=== PATIENT | female | born 1940 | race American Indian/Alaskan Native ===

== ENCOUNTER 2016-09-12 11:10 | Inpatient (IN) | payer MEDICARE ==
[2016-09-12 11:57] LABS: Basophils % (Auto) 0.3 % (0.0-1.8); Eosinophils % (Auto) 1.6 % (0.0-4.3); Hematocrit 36.6 % (30.3-42.9); Hemoglobin 11.6 gm/dl (10.1-14.3); Mean Corpuscular HGB Conc 32 % (30-34); Mean Corpuscular Hemoglobin 27 pg (28-32); Mean Corpuscular Volume 84 fl (79-97); Platelet Count 186 K/mm3 (140-440); Red Blood Count 4.36 M/mm3 (3.65-5.03); Red Cell Distribution Width 18.8 % (13.2-15.2); White Blood Count 5.3 K/mm3 (4.5-11.0)
[2016-09-12 12:13] LABS: INR 1.04 (0.87-1.13)
[2016-09-12 12:14] LABS: Partial Thromboplastin Time 40.1 Sec. (24.2-36.6)
--- NOTE | 2016-09-12 12:16 | XRay Report ---
PORTABLE CHEST INDICATION: Chest pain. COMPARISON: 05/08/2016 FINDINGS: Portable, frontal chest radiograph demonstrates improved CHF with now grossly clear, well-expanded lungs. Borderline cardiomegaly. Aortic knob calcifications as also right subclavian region and right upper arm stents again noted. EKG leads. Demineralized bones with various degenerative changes. CONCLUSION: No acute significant chest process with interval resolution of CHF, as described. Thank you for the opportunity to participate in this patient's care.
[2016-09-12 12:22] LABS: Magnesium 2.2 mg/dL (1.7-2.3); Phosphorous 3.1 mg/dL (2.5-4.5)
[2016-09-12 12:23] LABS: Creatine Kinase MB 2.6 ng/mL (0.0-4.0)
[2016-09-12 12:25] LABS: Alanine Aminotransferase 9 units/L (7-56); Albumin 4.2 g/dL (3.9-5); Albumin/Globulin Ratio 1.2 %; Alkaline Phosphatase 100 units/L (35-129); Bilirubin,Total 0.4 mg/dL (0.1-1.2); Creatine Kinase 87 units/L (30-135); Total Protein 7.7 g/dL (6.3-8.2)
[2016-09-12 12:27] LABS: Bilirubin,Direct < 0.2 mg/dL (0-0.2); Bilirubin,Indirect 0.2 mg/dL
[2016-09-12 12:36] LABS: Cholesterol 214 mg/dL (50-199); HDL Cholesterol 77 mg/dL (40-59); LDL Cholesterol,Direct 110 mg/dL (50-130); Triglycerides 138 mg/dL (2-149)
--- NOTE | 2016-09-12 13:45 | Admit Criteria Form ---
Admission Criteria Documentation: CARDIAC ARRHYTHMIA Clinical Indications for Inpatient Care (Place 'X' for any and all applicable criteria): Ongoing inpatient care for cardiac arrhythmia needed as indicated by ANY ONE of the following(1)(2)(3)(4)(7) : [X ]I. Vital sign abnormality secondary to arrhythmia [ ]II. Patient has implantable cardioverter-defibrillator that has fired more than once within past 24 hours or needs immediate adjustment of settings that cannot be done other than in inpatient setting. [ ]III. Altered mental status [ ]IV. Resuscitated or aborted ventricular fibrillation or ventricular tachycardia in patient without implantable cardioverter- defibrillator [ ]V. Initiation of antiarrhythmic drug therapy is needed in patient at high risk of adverse effects as indicated by ANY ONE of the following: [ ]a) Significant structural heart disease (e.g., reduced ejection fraction, congenital heart disease, valvular heart disease) [ ]b) Prolonged QT interval [ ]c) Underlying sinus node or atrioventricular conduction disturbances [ ]d) Need for treatment with antiarrhythmic drugs that have significant proarrhythmic potential (e.g., dofetilide, sotalol, procainamide) [ ]. Acute myocardial ischemia as a consequence or suspected cause of arrhythmia [ ]VII. Syncope secondary to arrhythmia [ ]VIII. Heart failure (eg, pulmonary edema) secondary to arrhythmia) (26)(27) [ ]IX. Patient has implantable cardioverter defibrillator that has fired more than once within past 24hr or needs immediate adjustment of settings that cannot be done other than in inpatient setting.(8) [ ]X. Sustained (30 seconds or more of ventricular rhythm at more than 100 beats per minute) ventricular tachycardia and ANY ONE of the following: [ ]a) No previous known history of sustained ventricular tachycardia [ ]b) Structural heart disease (eg, reduced ejection fraction, hypertrophic cardiomyopathy, severe valvular disease) and without implantable cardioverter-defibrillator(24)(32)(33) [ ]c) Need for treatment of drug toxicity (eg, digitalis toxicity)(34 ) [ ]d) Need for electrical cardioversion Extended stay beyond goal length of stay may be needed for [ ]a) Hemodynamic stability [ ]b) Arrhythmia evaluation completed [ ]c) Reversible causes of arrhythmia eliminated or mitigated [ ]d) Specific antiarrhythmia treatment initiated as appropriate [ ]e) Anticoagulation requirements addressed (or anticoagulation not required). [ ]f) Medical comorbidities manageable at lower level of care The original [facility] content created by [facility] has been revised. The portions of the content which have been revised are identified through the use of italic text or in bold, and [facility] has neither reviewed nor approved the modified material. All other unmodified content is copyright [facility]. Please see references footnoted in the original [facility] edition 2016 Admission Criteria Met: Yes
--- NOTE | 2016-09-12 15:16 | Emergency Department Report ---
ED General Adult HPI - General Chief complaint: Chest Pain Stated complaint: HEART PALPATIONS Time Seen by Provider: 09/12/16 11:22 Source: patient, EMS Mode of arrival: Stretcher Limitations: Physical Limitation, Other - History of Present Illness Initial comments: Patient is an extremely poor historian. As far as I can tell she went into SVT long prior to transfer for it. She states that she's never seen a white sugar supervisor. However Dr. Eric Gonzalez has seen and evaluated her several times in the past. She had a previous cardiac catheterization with a 40% LAD lesion. She had a nuclear stress test during her April admission which did not seem to be showing anything acute. In any case the patient does complain of shortness of breath and has tightness. Telemetry revealed SVT per paramedics. She arrived at this facility with a heart rate greater than 180 and a complex. An IV was not established in the field secondary to accident report clerk difficulty until right prior to arrival, they state. Medication had been heretofore given. -: minutes(s), hour(s) Location: chest Radiation: non-radiation Severity scale (0 -10): 4 Quality: aching Consistency: intermittent Improves with: none Associated Symptoms: shortness of breath Treatments Prior to Arrival: none - Related Data Home Medications Medication Instructions Recorded Confirmed Last Taken Calcium Carbonate/Vitamin D3 1 tab PO DAILY 05/08/16 05/08/16 Unknown [Calcium 500 + D Tablet] Previous Rx's Medication Instructions Recorded Last Taken Type Aspirin [Aspirin BABY CHEW TAB] 81 mg PO QDAY #30 tab.chew 05/12/16 Unknown Rx Carvedilol [Coreg] 12.5 mg PO BID #60 tablet 05/12/16 Unknown Rx Lisinopril [Zestril TAB] 20 mg PO QDAY #30 tablet 05/12/16 Unknown Rx Simvastatin [Zocor TAB] 40 mg PO QHS #30 tablet 05/12/16 Unknown Rx Allergies Allergy/AdvReac Type Severity Reaction Status Date / Time phenytoin sodium Allergy Anaphylaxis Verified 05/08/16 07:07 [From Dilantin] phenytoin sodium extended Allergy Anaphylaxis Verified 05/08/16 07:07 [From Dilantin] ED Review of Systems ROS: Stated complaint: HEART PALPATIONS Other details as noted in HPI Constitutional: denies: chills, fever Eyes: denies: eye pain, eye discharge, vision change ENT: denies: ear pain, throat pain Respiratory: shortness of breath. denies: cough, wheezing Cardiovascular: chest pain. denies: palpitations Endocrine: no symptoms reported Gastrointestinal: denies: abdominal pain, nausea, diarrhea Genitourinary: denies: urgency, dysuria, discharge Musculoskeletal: denies: back pain, joint swelling, arthralgia Skin: denies: rash, lesions Neurological: denies: headache, weakness, paresthesias Psychiatric: denies: anxiety, depression Hematological/Lymphatic: denies: easy bleeding, easy bruising ED Past Medical Hx - Past Medical History Hx Hypertension: Yes Hx Diabetes: Yes Hx Renal Disease: Yes (dialysis ) Additional medical history: poor circulation left leg - Surgical History Additional Surgical History: L foot; AV Fistula Upper R arm - Social History Smoking Status: Former Smoker - Medications Home Medications: Home Medications Medication Instructions Recorded Confirmed Last Taken Type Calcium Carbonate/Vitamin D3 1 tab PO DAILY 05/08/16 05/08/16 Unknown History [Calcium 500 + D Tablet] Aspirin [Aspirin BABY CHEW TAB] 81 mg PO QDAY #30 tab.chew 05/12/16 Unknown Rx Carvedilol [Coreg] 12.5 mg PO BID #60 tablet 05/12/16 Unknown Rx Lisinopril [Zestril TAB] 20 mg PO QDAY #30 tablet 05/12/16 Unknown Rx Simvastatin [Zocor TAB] 40 mg PO QHS #30 tablet 05/12/16 Unknown Rx ED Physical Exam - General Limitations: Physical Limitation, Other General appearance: alert, in no apparent distress - Head Head exam: Present: atraumatic, normocephalic - Eye Eye exam: Present: normal appearance. Absent: scleral icterus - ENT ENT exam: Present: mucous membranes moist - Neck Neck exam: Present: normal inspection - Respiratory Respiratory exam: Present: normal lung sounds bilaterally. Absent: respiratory distress - Cardiovascular Cardiovascular Exam: Present: normal rhythm, tachycardia. Absent: systolic murmur, diastolic murmur, rubs, gallop - GI/Abdominal GI/Abdominal exam: Present: soft, normal bowel sounds. Absent: distended, tenderness, guarding, rebound, rigid - Extremities Exam Extremities exam: Present: normal inspection - Back Exam Back exam: Present: normal inspection - Neurological Exam Neurological exam: Present: alert, other (no acute focal deficit) - Psychiatric Psychiatric exam: Present: normal affect, normal mood - Skin Skin exam: Present: warm, dry, intact, normal color. Absent: rash ED Course Vital Signs 09/12/16 09/12/16 09/12/16 11:11 11:13 11:16 Temperature 98.3 F Pulse Rate 94 H 94 H Respiratory 18 14 Rate Blood Pressure 139/73 O2 Sat by Pulse 100 100 Oximetry 09/12/16 09/12/16 09/12/16 11:18 11:39 11:47 Temperature Pulse Rate 96 H 96 H Respiratory 14 16 12 Rate Blood Pressure 137/78 137/78 O2 Sat by Pulse 99 100 Oximetry 09/12/16 09/12/16 09/12/16 12:00 12:07 13:00 Temperature Pulse Rate 96 H 104 H 92 H Respiratory 16 14 18 Rate Blood Pressure 116/67 116/67 119/62 O2 Sat by Pulse 98 61 L 100 Oximetry 09/12/16 09/12/16 09/12/16 13:55 14:00 14:02 Temperature Pulse Rate 88 86 90 Respiratory 18 17 18 Rate Blood Pressure 126/53 120/54 120/54 O2 Sat by Pulse 100 100 100 Oximetry 09/12/16 09/12/16 09/12/16 14:34 15:00 16:00 Temperature 98.5 F Pulse Rate 79 83 Respiratory 17 18 Rate Blood Pressure 134/56 129/57 O2 Sat by Pulse 99 100 Oximetry - Reevaluation(s) Reevaluation #1: The patient was given 6 mg of adenosine. This successfully terminated her sooner ventricular tachycardia. A post cardioversion EKG was consistent with diffuse ischemia however showing ST depressions in the inferolateral and high lateral leads. The rhythm is however normal sinus. Patient's chest pain did however resolved with cardioversion. She was admitted to the hospitalist service further care and evaluation. 09/12/16 16:40 ED Medical Decision Making - Lab Data Result diagrams: 09/12/16 11:39 09/12/16 15:17 Laboratory Results - last 24 hr 09/12/16 09/12/16 09/12/16 11:39 11:39 11:39 WBC 5.3 RBC 4.36 Hgb 11.6 Hct 36.6 MCV 84 MCH 27 L MCHC 32 RDW 18.8 H Plt Count 186 Lymph % (Auto) 7.0 L [place] % (Auto) 7.8 H Eos % (Auto) 1.6 Baso % (Auto) 0.3 Lymph # 0.4 L [place] # 0.4 Eos # 0.1 Baso # 0.0 Seg Neutrophils % 83.3 H Seg Neutrophils # 4.4 PT 13.5 INR 1.04 APTT 40.1 H Phosphorus Magnesium Total Bilirubin 0.4 Direct Bilirubin < 0.2 Indirect Bilirubin 0.2 AST 19 ALT 9 Alkaline Phosphatase 100 Total Creatine Kinase 87 CK-MB (CK-2) 2.6 CK-MB (CK-2) Rel Index 2.9 Troponin T 0.080 H NT-Pro-B Natriuret Pep Total Protein 7.7 Albumin 4.2 Albumin/Globulin Ratio 1.2 Triglycerides 138 Cholesterol 214 H LDL Cholesterol Direct 110 HDL Cholesterol 77 H Cholesterol/HDL Ratio 2.77 09/12/16 11:39 WBC RBC Hgb Hct MCV MCH MCHC RDW Plt Count Lymph % (Auto) [place] % (Auto) Eos % (Auto) Baso % (Auto) Lymph # [place] # Eos # Baso # Seg Neutrophils % Seg Neutrophils # PT INR APTT Phosphorus 3.1 Magnesium 2.2 Total Bilirubin Direct Bilirubin Indirect Bilirubin AST ALT Alkaline Phosphatase Total Creatine Kinase CK-MB (CK-2) CK-MB (CK-2) Rel Index Troponin T NT-Pro-B Natriuret Pep 39311 H Total Protein Albumin Albumin/Globulin Ratio Triglycerides Cholesterol LDL Cholesterol Direct HDL Cholesterol Cholesterol/HDL Ratio - EKG Data -: EKG Interpreted by Me - EKG Data Assessment and 180. Post cardioversion EKG above described. 09/12/16 16:40 - Radiology Data interpreted by me: Chest x-ray no acute process. Critical Care Time: Yes Critical care time in (mins) excluding proc time.: 35 Critical care attestation.: If time is entered above; I have spent that time in minutes in the direct care of this critically ill patient, excluding procedure time. ED Disposition Clinical Impression: Supraventricular tachycardia, End stage renal disease on dialysis due to type 2 diabetes mellitus, Hyperkalemia Disposition: OP ADMITTED IP TO THIS HOSP Is pt being admited?: Yes Does the pt Need Aspirin: Yes Condition: Stable
[2016-09-12 15:40] LABS: BUN/Creatinine Ratio 4.8; Calcium 9.1 mg/dL (8.4-10.2); Potassium 5.2 mmol/L (3.6-5.0)
[2016-09-12] MEDS ORDERED: D50W (25GM) IV PRN (16:23)
[2016-09-12] MEDS ORDERED: ZOFRAN IV PRN (16:23)
[2016-09-12] MEDS ORDERED: TYLENOL PO PRN (16:23)
[2016-09-12] MEDS ORDERED: REGLAN IV PRN (16:23)
[2016-09-12] MEDS ORDERED: KIONEX PO ONE (16:44)
[2016-09-12] MEDS ORDERED: KIONEX ONE (16:57)
--- NOTE | 2016-09-12 18:43 | History and Physical Report ---
History of Present Illness Date of examination: 09/12/16 Date of admission: 09/12/16 15:30 Chief complaint: palpitations today History of present illness: Paul is a 76-year-old -English female who presented to the emergency room after having palpitations. She reported that she was in [employer] shopping and while she was there she started to have palpitations with dizziness and shortness of breath. She reported that she went home and she took an aspirin and she was laying down however the palpitation worsened. She called EMS and was subsequently taken to the emergency room. In the emergency room she was noted to be in SVT. She was given 6 mg of adenosine and she converted to sinus rhythm. At the time of evaluation she had no chest pain or shortness of breath. She reported no chest pain during her episode of palpitations. Past History Past Medical History: diabetes, dialysis, ESRD, hypertension, other (cva; tia; ) Past Surgical History: Other (R AVF, cataract surgery, hip replacement, LLE bypass, left toe amputation) Social history: full code. denies: smoking, alcohol abuse, prescription drug abuse, IV drug use Family history: hypertension Medications and Allergies Allergies Allergy/AdvReac Type Severity Reaction Status Date / Time phenytoin sodium Allergy Anaphylaxis Verified 05/08/16 07:07 [From Dilantin] phenytoin sodium extended Allergy Anaphylaxis Verified 05/08/16 07:07 [From Dilantin] Home Medications Medication Instructions Recorded Confirmed Last Taken Type Calcium Carbonate/Vitamin D3 1 tab PO AC 05/08/16 09/12/16 Unknown History [Calcium 500 + D Tablet] Aspirin [Aspirin BABY CHEW TAB] 81 mg PO QDAY #30 tab.chew 05/12/16 09/12/16 Unknown Rx Simvastatin [Zocor TAB] 40 mg PO QHS #30 tablet 05/12/16 09/12/16 Unknown Rx Furosemide [Lasix TAB] 10 mg PO DAILY 09/12/16 09/12/16 Unknown History Insulin Glargine [Lantus VIAL] 20 units SUB-Q PRN 09/12/16 09/12/16 Unknown History Insulin Lispro [HumaLOG VIAL] 5 units SUB-Q AC 09/12/16 09/12/16 Unknown History Labetalol [Normodyne TAB] 100 mg PO DAILY 01/20/17 01/20/17 Unknown History Lisinopril/Hydrochlorothiazide 1 tab PO QDAY 09/12/16 09/12/16 Unknown History [Zestoretic 20-12.5 mg] Active Meds: Active Medications Acetaminophen (Tylenol) 650 mg PO Q4H PRN PRN Reason: Pain MILD(1-3)/Fever >100.5/KEE Aspirin (Baby Aspirin) 81 mg PO QDAY [facility] Calcium/Vitamin D ([place] D 500 Mg-200 Unit) 1 each PO QDAY [facility] Carvedilol (Coreg) 12.5 mg PO BID [facility] Dextrose (D50w (25gm)) 50 ml IV PRN PRN PRN Reason: Hypoglycemia Heparin Sodium (Porcine) (Heparin) 5,000 unit SUB-Q Q12HR [facility] Lisinopril (Zestril) 20 mg PO QDAY [facility] Metoclopramide HCl (Reglan) 10 mg IV Q6H PRN PRN Reason: Nausea And Vomiting Ondansetron HCl (Zofran) 4 mg IV Q8H PRN PRN Reason: N/V unrelieved by Reglan Simvastatin (Zocor) 40 mg PO QHS [facility] Review of Systems All systems: negative Constitutional: no weight loss, no weight gain, no fever, no chills, no sweats Ears, nose, mouth and throat: no ear pain, no ear discharge, no tinnitis, no decreased hearing, no nose pain Breasts: normal Cardiovascular: other (as [facility]) Respiratory: no cough, no cough with sputum, no excessive sputum, no hemoptysis , no shortness of breath, no dyspnea on exertion Gastrointestinal: no nausea, no vomiting, no diarrhea, no constipation Genitourinary Female: no dysuria, no urinary frequency Rectal: no pain, no incontinence, no bleeding Musculoskeletal: no neck stiffness, no neck pain, no shooting arm pain, no arm numbness/tingling Integumentary: no rash, no pruritis, no redness Neurological: no head injury, no transient paralysis, no paralysis, no weakness , no parathesias Psychiatric: no anxiety, no memory loss, no change in sleep habits, no sleep disturbances Endocrine: no cold intolerance, no heat intolerance, no polyphagia, no excessive thirst Hematologic/Lymphatic: no easy bruising, no easy bleeding Allergic/Immunologic: no urticaria, no allergic rhinitis Exam - Constitutional Vitals: Temp Pulse Resp BP Pulse Ox 98.7 F 85 16 138/65 100 09/12/16 17:05 09/12/16 17:27 09/12/16 17:27 09/12/16 17:27 09/12/16 17:27 General appearance: Present: no acute distress, well-nourished - EENT Eyes: Present: PERRL, EOM intact. Absent: scleral icterus, conjunctival injection ENT: hearing intact, clear oral mucosa, no oropharyngeal erythema, no poor dentition - Neck Neck: Present: supple, normal ROM. Absent: enlarged thyroid, masses or JVD - Respiratory Respiratory effort: normal Respiratory: negative: diminished, rales, rhonchi, wheezing - Cardiovascular Rhythm: regular Heart Sounds: Present: S1 & S2. Absent: gallop - Extremities Extremities: no ischemia, pulses intact, pulses symmetrical Extremity abnormal: other (transmetatarsal amputation of the toes of the left foot ) Peripheral Pulses: within normal limits - Abdominal General gastrointestinal: Present: soft, non-tender, non-distended, normal bowel sounds Female genitourinary: Present: deferred - Rectal Rectal Exam: deferred - Integumentary Integumentary: Present: clear - Musculoskeletal Musculoskeletal: strength equal bilaterally - Psychiatric Psychiatric: appropriate mood/affect, intact judgment & insight, cooperative - Neurologic Neurologic: CNII-XII intact, moves all extremities Results - Labs CBC & Chem 7: 09/12/16 11:39 09/12/16 15:17 Labs: Abnormal lab results 09/12/16 Range/Units 17:10 POC Glucose 196 H (70-105) - Imaging and Cardiology EKG: report reviewed (SVT with conversion in to sinus after adenos) Chest x-ray: report reviewed (no acute abn- resolution of CHF ) Assessment and Plan 1. SVT post cardioversion with adenosine - will admit as an inpatient as more than 2 MN are required for treatment; serial CE; mildly elevated trop which is chronic with normal CKMB index; consult cardiology; TSH; echo; restart B nancy 2. DM 2- monitor accucheck; renal consistent carb diet; restart insulin regime 3. ESRD on HD- consult renal for HD;monitor lytes; restart home meds 4. Chronic systolic / diastolic CHF- compensated; restart coreg and lisinopril as per home meds 5. OLD CVA - no residual deficits; ASA\ 6. Dyslipidemia- restart statin 7. DVT prophylaxis-heparin
[2016-09-12 21:25] LABS: Creatine Kinase MB 8.7 ng/mL (0.0-4.0)
[2016-09-12] MEDS: COREG PO SCH (23:01)
[2016-09-12] MEDS: HEPARIN SUB-Q SCH (23:01)
[2016-09-12] MEDS: ZOCOR PO SCH (23:01)
[2016-09-13 00:33] LABS: Creatine Kinase MB 7.8 ng/mL (0.0-4.0)
[2016-09-13] MEDS ORDERED: INSULIN LISPRO 5 UNIT SUB-Q SCH (07:30)
[2016-09-13 07:41] LABS: BUN/Creatinine Ratio 5.08; Calcium 8.3 mg/dL (8.4-10.2); Chloride 95.7 mmol/L (98-107); Potassium 4.4 mmol/L (3.6-5.0)
[2016-09-13] MEDS: NOVOLOG SUB-Q SCH ×3 (08:49→17:22)
[2016-09-13] MEDS: BABY ASPIRIN PO SCH (09:45)
[2016-09-13] MEDS: HEPARIN SUB-Q SCH ×2 (09:45→23:07)
[2016-09-13] MEDS: COREG PO SCH ×2 (09:45→23:08)
[2016-09-13] MEDS: ZESTRIL PO SCH (09:46)
[2016-09-13] MEDS: NORMODYNE PO SCH (09:46)
[2016-09-13] MEDS: LASIX PO SCH (09:46)
[2016-09-13] MEDS: OYSCO D 500 MG-200 UNIT PO SCH (09:46)
[2016-09-13] MEDS ORDERED: CALCIUM CARBONATE PO SCH (10:00)
[2016-09-13] MEDS ORDERED: VITAMIN D3 PO SCH (10:00)
--- NOTE | 2016-09-13 11:17 | Event Note ---
Date: 09/13/16 Cardio note dictated SVT converted to sr Cardiomyopathy-non ischemic Agree with current management Rec increase carvedilol to 25 bid and d/c labetalol and monitor Thank you LUPE Richards
--- NOTE | 2016-09-13 13:25 | Progress Note ---
Assessment and Plan Assessment and plan: --SVT received adenosine, normal sinus rhythm closely monitor cardiology following --End-stage renal disease on hemodialysis per schedule Nephrology evaluation noted and appreciated --Acute on chronic systolic and diastolic congestive heart failure Continue current anti-failure medications closely monitor input-output Cardiology recommendations noted and appreciated --Abnormal cardiac enzymes; probably nonspecific in the setting of congestive heart failure as well as end-stage renal disease However in view of multiple risk factors, acute coronary syndrome needs to be ruled out, management per cardiology --Type 2 diabetes mellitus moderate control Accu-Chek sliding scale coverage and ADA diet, patient's hemoglobin A1c is less than 6 --Hypertension; continue current antihypertensives and when necessary medications --History of CVA without residual defect, continue antiplatelets --Dyslipidemia; stable on lipid-lowering medications --DVT prophylaxis with Lovenox --Full CODE STATUS Medical records reviewed patient's condition treatment plan discussed in detail with the patient her nurse as well as the family member Consults and recommendations noted and appreciated History Interval history: Patient seen and evaluated medical records reviewed No new events reported by the nursing staff Patient denies any chest pain or shortness of breath Alert awake responding appropriately Hospitalist Physical - Constitutional Vitals: Temp Pulse Resp BP Pulse Ox 97.6 F 88 20 105/58 97 09/13/16 11:25 09/13/16 11:25 09/13/16 11:25 09/13/16 11:25 09/13/16 11:25 General appearance: Present: no acute distress, well-nourished - EENT Eyes: Present: PERRL, EOM intact - Neck Neck: Present: supple, normal ROM - Respiratory Respiratory effort: normal Respiratory: bilateral: diminished, negative: rales, rhonchi, wheezing - Cardiovascular Rhythm: regular Heart Sounds: Present: S1 & S2 - Extremities Extremities: no ischemia, pulses intact, pulses symmetrical - Abdominal General gastrointestinal: soft, non-tender, non-distended, normal bowel sounds - Psychiatric Psychiatric: appropriate mood/affect, cooperative - Neurologic Neurologic: CNII-XII intact, moves all extremities Results - Labs CBC & Chem 7: 09/14/16 05:28 09/14/16 05:28 Labs: Laboratory Last Values WBC 5.3 K/mm3 (4.5-11.0) 09/12/16 11:39 RBC 4.36 M/mm3 (3.65-5.03) 09/12/16 11:39 Hgb 11.6 gm/dl (10.1-14.3) 09/12/16 11:39 Hct 36.6 % (30.3-42.9) 09/12/16 11:39 MCV 84 fl (79-97) 09/12/16 11:39 MCH 27 pg (28-32) L 09/12/16 11:39 MCHC 32 % (30-34) 09/12/16 11:39 RDW 18.8 % (13.2-15.2) H 09/12/16 11:39 Plt Count 186 K/mm3 (140-440) 09/12/16 11:39 Lymph % (Auto) 7.0 % (13.4-35.0) L 09/12/16 11:39 [place] % (Auto) 7.8 % (0.0-7.3) H 09/12/16 11:39 Eos % (Auto) 1.6 % (0.0-4.3) 09/12/16 11:39 Baso % (Auto) 0.3 % (0.0-1.8) 09/12/16 11:39 Lymph # 0.4 K/mm3 (1.2-5.4) L 09/12/16 11:39 [place] # 0.4 K/mm3 (0.0-0.8) 09/12/16 11:39 Eos # 0.1 K/mm3 (0.0-0.4) 09/12/16 11:39 Baso # 0.0 K/mm3 (0.0-0.1) 09/12/16 11:39 Seg Neutrophils % 83.3 % (40.0-70.0) H 09/12/16 11:39 Seg Neutrophils # 4.4 K/mm3 (1.8-7.7) 09/12/16 11:39 PT 13.5 Sec. (12.2-14.9) 09/12/16 11:39 INR 1.04 (0.87-1.13) 09/12/16 11:39 APTT 40.1 Sec. (24.2-36.6) H 09/12/16 11:39 Sodium 142 mmol/L (137-145) 09/13/16 07:06 Potassium 4.4 mmol/L (3.6-5.0) 09/13/16 07:06 Chloride 95.7 mmol/L (98-107) L 09/13/16 07:06 Carbon Dioxide 27 mmol/L (22-30) D 09/13/16 07:06 Anion Gap 24 mmol/L 09/13/16 07:06 BUN 31 mg/dL (7-17) H 09/13/16 07:06 Creatinine 6.1 mg/dL (0.7-1.2) H 09/13/16 07:06 Estimated GFR 8 ml/min 09/13/16 07:06 BUN/Creatinine Ratio 5.08 % 09/13/16 07:06 Glucose 95 mg/dL (65-100) 09/13/16 07:06 POC Glucose 78 (70-105) 09/13/16 11:24 Calcium 8.3 mg/dL (8.4-10.2) L 09/13/16 07:06 Phosphorus 3.1 mg/dL (2.5-4.5) 09/12/16 11:39 Magnesium 2.2 mg/dL (1.7-2.3) 09/12/16 11:39 Total Bilirubin 0.4 mg/dL (0.1-1.2) 09/12/16 11:39 Direct Bilirubin < 0.2 mg/dL (0-0.2) 09/12/16 11:39 Indirect Bilirubin 0.2 mg/dL 09/12/16 11:39 AST 19 units/L (5-40) 09/12/16 11:39 ALT 9 units/L (7-56) 09/12/16 11:39 Alkaline Phosphatase 100 units/L (35-129) 09/12/16 11:39 Total Creatine Kinase 137 units/L (30-135) H 09/12/16 23:34 CK-MB (CK-2) 7.8 ng/mL (0.0-4.0) H 09/12/16 23:34 CK-MB (CK-2) Rel Index 5.6 (0-4) H 09/12/16 23:34 Troponin T 0.764 ng/mL (0.00-0.029) H* 09/12/16 23:34 NT-Pro-B Natriuret Pep 14264 pg/mL (0-900) H 09/12/16 11:39 Total Protein 7.7 g/dL (6.3-8.2) 09/12/16 11:39 Albumin 4.2 g/dL (3.9-5) 09/12/16 11:39 Albumin/Globulin Ratio 1.2 % 09/12/16 11:39 Triglycerides 138 mg/dL (2-149) 09/12/16 11:39 Cholesterol 214 mg/dL (50-199) H 09/12/16 11:39 LDL Cholesterol Direct 110 mg/dL (50-130) 09/12/16 11:39 HDL Cholesterol 77 mg/dL (40-59) H 09/12/16 11:39 Cholesterol/HDL Ratio 2.77 % 09/12/16 11:39 TSH 0.864 mlU/mL (0.270-4.200) 09/12/16 19:58
--- NOTE | 2016-09-13 16:29 | Consultation ---
History of Present Illness - Reason for Consult Consult date: 09/13/16 end stage renal disease - History of Present Illness Mrs. Miller is a very pleasant 76yo female with ESRD on HD TTS who presented to the ED w/complaint of palpitations. She reports being in usual state of health until morning prior to admission when she became lightheaded/dizzy while grocery shopping. Dizziness was soon followed by palpitations. She reports palpitations worsened described as "chest pounding" which prompted her visit to the ED. She denies chest pain, sob, diaphoresis. Upon arrival to ED, patient was in SVT requiring adenosine. She has been admitted for further management. Past History Past Medical History: diabetes, dialysis, ESRD, hypertension, other (cva; tia; ) Past Surgical History: Other (R AVF, cataract surgery, hip replacement, LLE bypass, left toe amputation) Social history: full code. denies: smoking, alcohol abuse, prescription drug abuse, IV drug use Family history: hypertension Medications and Allergies Allergies Allergy/AdvReac Type Severity Reaction Status Date / Time phenytoin sodium Allergy Anaphylaxis Verified 05/08/16 07:07 [From Dilantin] phenytoin sodium extended Allergy Anaphylaxis Verified 05/08/16 07:07 [From Dilantin] Home Medications Medication Instructions Recorded Confirmed Last Taken Type Calcium Carbonate/Vitamin D3 1 tab PO AC 05/08/16 09/12/16 Unknown History [Calcium 500 + D Tablet] Aspirin [Aspirin BABY CHEW TAB] 81 mg PO QDAY #30 tab.chew 05/12/16 09/12/16 Unknown Rx Simvastatin [Zocor TAB] 40 mg PO QHS #30 tablet 05/12/16 09/12/16 Unknown Rx Furosemide [Lasix TAB] 10 mg PO DAILY 09/12/16 09/12/16 Unknown History Insulin Glargine [Lantus VIAL] 20 units SUB-Q PRN 09/12/16 09/12/16 Unknown History Insulin Lispro [HumaLOG VIAL] 5 units SUB-Q AC 09/12/16 09/12/16 Unknown History Labetalol [Normodyne TAB] 100 mg PO DAILY 09/12/16 09/12/16 Unknown History Lisinopril/Hydrochlorothiazide 1 tab PO QDAY 09/12/16 09/12/16 Unknown History [Zestoretic 20-12.5 mg] Active Meds: Active Medications Acetaminophen (Tylenol) 650 mg PO Q4H PRN PRN Reason: Pain MILD(1-3)/Fever >100.5/KEE Aspirin (Baby Aspirin) 81 mg PO QDAY [facility] Last Admin: 09/13/16 09:45 Dose: 81 mg Calcium/Vitamin D ([place]ysco D 500 Mg-200 Unit) 1 each PO QDAY [facility] Last Admin: 09/13/16 09:46 Dose: 1 each Carvedilol (Coreg) 12.5 mg PO BID [facility] Last Admin: 09/13/16 09:45 Dose: 12.5 mg Dextrose (D50w (25gm)) 50 ml IV PRN PRN PRN Reason: Hypoglycemia Furosemide (Lasix) 10 mg PO DAILY [facility] Last Admin: 09/13/16 09:46 Dose: 10 mg Heparin Sodium (Porcine) (Heparin) 5,000 unit SUB-Q Q12HR [facility] Last Admin: 09/13/16 09:45 Dose: 5,000 unit Insulin Aspart (Novolog) 5 units SUB-Q AC [facility] Last Admin: 09/13/16 11:27 Dose: Not Given Labetalol HCl (Normodyne) 100 mg PO DAILY [facility] Last Admin: 09/13/16 09:46 Dose: 100 mg Lisinopril (Zestril) 20 mg PO QDAY [facility] Last Admin: 09/13/16 09:46 Dose: 20 mg Metoclopramide HCl (Reglan) 10 mg IV Q6H PRN PRN Reason: Nausea And Vomiting Ondansetron HCl (Zofran) 4 mg IV Q8H PRN PRN Reason: N/V unrelieved by Reglan Simvastatin (Zocor) 40 mg PO QHS [facility] Last Admin: 09/12/16 23:01 Dose: 40 mg Review of Systems Constitutional: no fever, no chills, no sweats Ears, nose, mouth and throat: deferred Breasts: deferred Cardiovascular: palpitations, rapid/irregular heart beat, lightheadedness, no chest pain, no orthopnea, no syncope, no shortness of breath, no dyspnea on exertion Respiratory: no cough, no shortness of breath, no dyspnea on exertion Gastrointestinal: no abdominal pain, no nausea, no vomiting, no diarrhea Musculoskeletal: no muscle weakness, no myalgias Integumentary: no rash Neurological: other (dizziness) Endocrine: no cold intolerance, no heat intolerance Exam - Vital Signs Vital signs: Vital Signs Temp 98.3 F 09/12/16 11:11 - General Appearance General appearance: well-developed, well-nourished EENT: ATNC Respiratory: Clear to Ascultation Heart: regular, S1S2 Gastrointestinal: Present: normal. Absent: tenderness, distended Integumentary: no rash Neurologic: no focal deficit Musculoskeletal: Present: other (no edema) Psychiatric: mood/affect appropriate, cooperative Results - Lab Results 09/12/16 11:39 09/13/16 07:06 Most recent lab results Calcium 8.3 mg/dL (8.4-10.2) L 09/13/16 07:06 Phosphorus 3.1 mg/dL (2.5-4.5) 09/12/16 11:39 Magnesium 2.2 mg/dL (1.7-2.3) 09/12/16 11:39 Assessment and Plan Impression: * End stage renal disease on HD TTS * SVT * Elevated troponin * Chronic systolic heart failure - TTE LVEF 20-25% (Apr 2016) * Type II DM Plan: * Hemodialysis today; continue TTS schedule * UF as tolerated * Patient needs a cardiac work up - her troponin has increased from 0.08 at admission to 0.76 * Epogen for goal Hgb 10-12 * Renal diet * Binders with meals
[2016-09-13] MEDS ORDERED: NACL 0.9% 1000 ML 100 ML IV PRN (17:29)
--- NOTE | 2016-09-13 21:25 | Consultation ---
AGE: 76. REASON FOR CONSULTATION: Evaluation tachycardia and cardiac evaluation. HISTORY OF PRESENT ILLNESS: The patient is a 76-year-old female who presented to the Emergency Room with difficulty in breathing and palpitations. She was apparently shopping at [employer] and started having palpitations. She went home and as it persisted and as it was associated with dizziness and shortness of breath, the patient was brought to the Emergency Room. She was noted to be in a supraventricular tachycardia. The patient received 6 mg of intravenous adenosine, with which she converted to sinus rhythm. Currently, she is in the sinus rhythm and she is feeling significantly better. The patient has no significant chest pain, difficulty in breathing, or palpitations at this time. The patient is known to me from her previous evaluation in 04/2016 at which time she was admitted with congestive heart failure. Last ejection fraction was about 20%. The patient is also known to have a history of longstanding hypertension as well as diabetes. The patient has chronic renal disease, on dialysis. She is also known to have peripheral vascular disease and Vascular Surgery done on her left lower extremity. She had a PET scan done in 2014 that was noted to be negative for ischemia. Nuclear stress test done in 04/2016 showed severe left ventricular systolic dysfunction, no significant ischemia was noted. Echocardiogram done on 05/09 showed an ejection fraction of 20-25%, severe left ventricular systolic dysfunction, moderate mitral regurgitation was noted. REVIEW OF SYSTEMS: HEAD, EYES, EARS, NOSE, AND THROAT: No symptoms. ENDOCRINE: The patient is known to have diabetes. RESPIRATORY: No history of significant dyspnea or cough at this time. However, she did have difficulty in breathing yesterday. GASTROINTESTINAL: No abdominal pain, nausea, or vomiting. GENITOURINARY: No symptoms. MUSCULOSKELETAL: No symptoms. CENTRAL NERVOUS SYSTEM: No history of cerebrovascular accident or convulsive disorder. PERSONAL HISTORY: Nonsmoker, nonalcoholic. PHYSICAL EXAMINATION: GENERAL: Adult female, well built, well nourished, in no acute distress at this time. VITAL SIGNS: Blood pressure 133/71, pulse 86, oxygen saturation is 100, afebrile. HEAD, EYES, EARS, NOSE, AND THROAT: Unremarkable. NECK: Supple. No thyromegaly. Both carotids are palpable and equal. Neck veins are flat. CHEST: Symmetrical. LUNGS: Essentially clear. CARDIOVASCULAR: S1, S2 are heard well. Rhythm is regular. ABDOMEN: Soft, nontender. No hepatosplenomegaly. EXTREMITIES: No significant edema or calf tenderness. LABORATORY DATA: Rhythm strips are reviewed and the patient did have a supraventricular tachycardia, now she is in sinus rhythm. Sodium 142, potassium 4.4, BUN 31, creatinine 6.1, troponin 0.695 and 0.764, hemoglobin 11.6, hematocrit 36.6. BNP 28,758, total cholesterol 214, LDL 110, HDL 77. IMPRESSION: 1. Supraventricular tachycardia, converted to sinus with adenosine. 2. Nonischemic cardiomyopathy. Echo done on 05/09 showed an ejection fraction of 20-25%. 3. Moderate mitral regurgitation. 4. Hypertension. 5. Diabetes. 6. End-stage renal disease, on dialysis. The patient is seen for cardiac evaluation. She converted to sinus rhythm and she is staying in sinus rhythm at this time. CURRENT MEDICATIONS: Reviewed. The patient is on both carvedilol and labetalol. I will increase carvedilol to 25 mg b.i.d. and stop the labetalol and monitor the blood pressure closely. Agree with the rest of the medications. The patient will be monitored and followed closely with you. Thank you Dr. Camilo for allowing me to participate in the care of this pleasant lady. JOB# [id number] ARMANDO/RU
[2016-09-13] MEDS: ZOCOR PO SCH (23:08)
[2016-09-14 06:07] LABS: Basophils % (Auto) 0.4 % (0.0-1.8); Eosinophils % (Auto) 5.7 % (0.0-4.3); Mean Corpuscular HGB Conc 33 % (30-34); Mean Corpuscular Hemoglobin 27 pg (28-32); Mean Corpuscular Volume 82 fl (79-97); Platelet Count 145 K/mm3 (140-440); Red Blood Count 3.72 M/mm3 (3.65-5.03); Red Cell Distribution Width 18.3 % (13.2-15.2); White Blood Count 3.9 K/mm3 (4.5-11.0)
[2016-09-14 06:11] LABS: BUN/Creatinine Ratio 4.35; Calcium 7.4 mg/dL (8.4-10.2); Magnesium 1.8 mg/dL (1.7-2.3)
[2016-09-14 06:12] LABS: Chloride 95.4 mmol/L (98-107); Potassium 3.8 mmol/L (3.6-5.0)
[2016-09-14] MEDS ORDERED: MORPHINE IV ONE (06:23)
[2016-09-14 06:34] LABS: Hematocrit 32.9 % (30.3-42.9)
[2016-09-14 06:53] LABS: Creatine Kinase MB 1.7 ng/mL (0.0-4.0)
[2016-09-14] MEDS: NOVOLOG SUB-Q SCH ×3 (08:59→16:41)
[2016-09-14] MEDS: COREG PO SCH ×2 (09:57→22:18)
[2016-09-14] MEDS: BABY ASPIRIN PO SCH (09:57)
[2016-09-14] MEDS: HEPARIN SUB-Q SCH ×2 (09:57→22:18)
[2016-09-14] MEDS: ZESTRIL PO SCH (09:58)
[2016-09-14] MEDS: LASIX PO SCH (09:58)
[2016-09-14] MEDS: NORMODYNE PO SCH (09:58)
[2016-09-14] MEDS: OYSCO D 500 MG-200 UNIT PO SCH (09:58)
[2016-09-14 10:26] LABS: Creatine Kinase MB 1.5 ng/mL (0.0-4.0)
--- NOTE | 2016-09-14 11:11 | Progress Note ---
Assessment and Plan SVT converted to sinus rythm Non ischemic cardiomyopathy continues to improve. Discussed about recommondation for AICD-she will think about it HTN ESRD cont current management, - Patient Problems (1) Hyperkalemia Current Visit: Yes Status: Acute (2) Supraventricular tachycardia Current Visit: Yes Status: Acute (3) ESRD (end stage renal disease) on dialysis Current Visit: No Status: Acute (4) HTN (hypertension) Current Visit: No Status: Acute (5) Nonischemic cardiomyopathy Current Visit: No Status: Acute (6) ESRD (end stage renal disease) Current Visit: No Status: Chronic Subjective Date of service: 09/14/16 Interval history: Patient is feeling well.RYthmis sinus.Improving Objective Vital Signs Temp Pulse Pulse Pulse Resp Resp BP 09/14/16 10:24 71 09/14/16 08:25 98.1 F 74 20 09/14/16 06:36 20 09/14/16 06:22 98.3 F 73 18 09/13/16 23:08 75 105/57 09/13/16 23:00 60 20 20 09/13/16 22:42 97.8 F 75 18 09/13/16 22:13 97.7 F 76 22 112/53 09/13/16 21:45 76 131/63 09/13/16 21:30 76 102/50 09/13/16 21:15 75 98/53 09/13/16 21:00 76 96/51 09/13/16 20:45 77 85/49 09/13/16 20:30 77 92/50 09/13/16 20:15 74 98/40 09/13/16 20:00 89 94/58 09/13/16 19:45 63 75/38 09/13/16 19:30 81 100/49 09/13/16 19:15 77 88/52 09/13/16 19:00 83 99/49 09/13/16 18:45 76 91/51 09/13/16 18:30 76 101/44 09/13/16 18:15 81 115/58 09/13/16 18:05 97.9 F 81 20 115/58 09/13/16 15:54 98.2 F 80 20 09/13/16 11:25 97.6 F 88 20 BP Pulse Ox 09/14/16 10:24 09/14/16 08:25 111/58 98 09/14/16 06:36 09/14/16 06:22 116/55 99 09/13/16 23:08 09/13/16 23:00 99 09/13/16 22:42 105/57 99 09/13/16 22:13 09/13/16 21:45 09/13/16 21:30 09/13/16 21:15 09/13/16 21:00 09/13/16 20:45 09/13/16 20:30 09/13/16 20:15 09/13/16 20:00 09/13/16 19:45 09/13/16 19:30 09/13/16 19:15 09/13/16 19:00 09/13/16 18:45 09/13/16 18:30 09/13/16 18:15 09/13/16 18:05 09/13/16 15:54 104/57 97 09/13/16 11:25 105/58 97 - Physical Examination General: Appears Well Neck: Positive: neck supple Cardiac: Positive: Reg Rate and Rhythm Lungs: Positive: clear to auscultation - Labs and Meds Cardiac Enzymes 09/14/16 09/14/16 Range/Units 05:28 09:44 CK-MB (CK-2) 1.7 1.5 (0.0-4.0) ng/mL CBC 09/14/16 Range/Units 05:28 WBC 3.9 L (4.5-11.0) K/mm3 RBC 3.72 (3.65-5.03) M/mm3 Hgb 10.0 L (10.1-14.3) gm/dl Hct 32.9 (30.3-42.9) % Plt Count 145 (140-440) K/mm3 Lymph # 0.7 L (1.2-5.4) K/mm3 [place] # 0.4 (0.0-0.8) K/mm3 Eos # 0.2 (0.0-0.4) K/mm3 Baso # 0.0 (0.0-0.1) K/mm3 Comprehensive Metabolic Panel 09/14/16 Range/Units 05:28 Sodium 140 (137-145) mmol/L Potassium 3.8 (3.6-5.0) mmol/L Chloride 95.4 L (98-107) mmol/L Carbon Dioxide 29 (22-30) mmol/L BUN 17 (7-17) mg/dL Creatinine 3.9 H (0.7-1.2) mg/dL Glucose 84 (65-100) mg/dL Calcium 7.4 L (8.4-10.2) mg/dL - Imaging and Cardiology EKG: report reviewed (SVT with conversion in to sinus after adenos)
--- NOTE | 2016-09-14 11:56 | Progress Note ---
Assessment and Plan Impression: * End stage renal disease on HD TTS * SVT * Elevated troponin * Chronic systolic heart failure - TTE LVEF 20-25% (Apr 2016) * Type II DM Plan: * Hemodialysis TTS schedule * UF as tolerated * Cardiology recommendations noted * Epogen for goal Hgb 10-12 * Renal diet * Binders with meals Subjective Date of service: 09/14/16 Interval history: Patient reports palpitations yesterday. None at present. Denies SOB. Objective - Vital Signs Vital signs: Vital Signs - 12hr 09/14/16 09/14/16 09/14/16 06:22 06:36 08:25 Temperature 98.3 F 98.1 F Pulse Rate Pulse Rate [ 73 Apical] Pulse Rate [ 74 Left] Respiratory 18 20 20 Rate Blood Pressure 116/55 111/58 [Left Arm] O2 Sat by Pulse 99 98 Oximetry 09/14/16 10:24 Temperature Pulse Rate 71 Pulse Rate [ Apical] Pulse Rate [ Left] Respiratory Rate Blood Pressure [Left Arm] O2 Sat by Pulse Oximetry - General Appearance General appearance: well-developed, well-nourished EENT: ATNC Respiratory: Present: Clear to Ascultation Cardiology: regular, S1S2 Gastrointestinal: normal Integumentary: no rash Neurologic: no focal deficit Musculoskeletal: other (Left TMA; no edema) Psychiatric: mood/affect appropriate, cooperative - Lab 09/14/16 05:28 09/14/16 05:28 Most recent lab results Calcium 7.4 mg/dL (8.4-10.2) L 09/14/16 05:28 Phosphorus 3.1 mg/dL (2.5-4.5) 09/12/16 11:39 Magnesium 1.8 mg/dL (1.7-2.3) 09/14/16 05:28
--- NOTE | 2016-09-14 17:40 | Progress Note ---
Assessment and Plan Assessment and plan: ----Nonischemic cardiomyopathy Acute on chronic systolic dysfunction, Ejection fraction 20-25%, cardiology following Recommend AICD placement, patient is considering not yet decided, Continue current anti-failure medications --Abnormal cardiac enzymes; probably nonspecific in the setting of congestive heart failure as well as end-stage renal disease Cardiology following, medical management --SVT received adenosine, normal sinus rhythm . --End-stage renal disease on hemodialysis per schedule HD per schedule Nephrology following --Type 2 diabetes mellitus moderate control Accu-Chek sliding scale coverage and ADA diet, patient's hemoglobin A1c is less than 6 --Hypertension; continue current antihypertensives and when necessary medications --History of CVA without residual defect, continue antiplatelets --Dyslipidemia; stable on lipid-lowering medications --DVT prophylaxis with Lovenox --Full CODE STATUS Consults and recommendations noted and appreciated DC planning per case management possible home with home health and medically stable History Interval history: Patient seen and evaluated medical records reviewed No new events reported by the nursing staff, patient feels better Denies chest pain or shortness of breath Alert awake oriented 3 not in acute distress Hospitalist Physical - Constitutional Vitals: Temp Pulse Resp BP Pulse Ox 98.3 F 72 18 100/55 98 09/14/16 15:51 09/14/16 15:51 09/14/16 15:51 09/14/16 15:51 09/14/16 15:51 General appearance: Present: no acute distress, well-nourished - EENT Eyes: Present: PERRL, EOM intact - Neck Neck: Present: supple, normal ROM - Respiratory Respiratory effort: normal Respiratory: bilateral: diminished, negative: rales, rhonchi, wheezing - Cardiovascular Rhythm: regular Heart Sounds: Present: S1 & S2 - Extremities Extremities: no ischemia, pulses intact, pulses symmetrical Peripheral Pulses: within normal limits - Abdominal General gastrointestinal: soft, non-tender, non-distended, normal bowel sounds - Integumentary Integumentary: Present: clear, warm - Psychiatric Psychiatric: appropriate mood/affect, cooperative - Neurologic Neurologic: CNII-XII intact, moves all extremities Results - Labs CBC & Chem 7: 09/14/16 05:28 09/14/16 05:28 Labs: Laboratory Last Values WBC 3.9 K/mm3 (4.5-11.0) L 09/14/16 05:28 RBC 3.72 M/mm3 (3.65-5.03) 09/14/16 05:28 Hgb 10.0 gm/dl (10.1-14.3) L 09/14/16 05:28 Hct 32.9 % (30.3-42.9) 09/14/16 05:28 MCV 82 fl (79-97) 09/14/16 05:28 MCH 27 pg (28-32) L 09/14/16 05:28 MCHC 33 % (30-34) 09/14/16 05:28 RDW 18.3 % (13.2-15.2) H 09/14/16 05:28 Plt Count 145 K/mm3 (140-440) 09/14/16 05:28 Lymph % (Auto) 17.9 % (13.4-35.0) 09/14/16 05:28 [place] % (Auto) 10.1 % (0.0-7.3) H 09/14/16 05:28 Eos % (Auto) 5.7 % (0.0-4.3) H 09/14/16 05:28 Baso % (Auto) 0.4 % (0.0-1.8) 09/14/16 05:28 Lymph # 0.7 K/mm3 (1.2-5.4) L 09/14/16 05:28 [place] # 0.4 K/mm3 (0.0-0.8) 09/14/16 05:28 Eos # 0.2 K/mm3 (0.0-0.4) 09/14/16 05:28 Baso # 0.0 K/mm3 (0.0-0.1) 09/14/16 05:28 Seg Neutrophils % 65.9 % (40.0-70.0) 09/14/16 05:28 Seg Neutrophils # 2.6 K/mm3 (1.8-7.7) 09/14/16 05:28 PT 13.5 Sec. (12.2-14.9) 09/12/16 11:39 INR 1.04 (0.87-1.13) 09/12/16 11:39 APTT 40.1 Sec. (24.2-36.6) H 09/12/16 11:39 Sodium 140 mmol/L (137-145) 09/14/16 05:28 Potassium 3.8 mmol/L (3.6-5.0) 09/14/16 05:28 Chloride 95.4 mmol/L (98-107) L 09/14/16 05:28 Carbon Dioxide 29 mmol/L (22-30) 09/14/16 05:28 Anion Gap 19 mmol/L 09/14/16 05:28 BUN 17 mg/dL (7-17) 09/14/16 05:28 Creatinine 3.9 mg/dL (0.7-1.2) H 09/14/16 05:28 Estimated GFR 14 ml/min 09/14/16 05:28 BUN/Creatinine Ratio 4.35 % 09/14/16 05:28 Glucose 84 mg/dL (65-100) 09/14/16 05:28 POC Glucose 102 (70-105) 09/14/16 08:31 Calcium 7.4 mg/dL (8.4-10.2) L 09/14/16 05:28 Phosphorus 3.1 mg/dL (2.5-4.5) 09/12/16 11:39 Magnesium 1.8 mg/dL (1.7-2.3) 09/14/16 05:28 Total Bilirubin 0.4 mg/dL (0.1-1.2) 09/12/16 11:39 Direct Bilirubin < 0.2 mg/dL (0-0.2) 09/12/16 11:39 Indirect Bilirubin 0.2 mg/dL 09/12/16 11:39 AST 19 units/L (5-40) 09/12/16 11:39 ALT 9 units/L (7-56) 09/12/16 11:39 Alkaline Phosphatase 100 units/L (35-129) 09/12/16 11:39 Total Creatine Kinase 58 units/L (30-135) 09/14/16 09:44 CK-MB (CK-2) 1.5 ng/mL (0.0-4.0) 09/14/16 09:44 CK-MB (CK-2) Rel Index 2.5 (0-4) 09/14/16 09:44 Troponin T 0.568 ng/mL (0.00-0.029) H* 09/14/16 09:44 NT-Pro-B Natriuret Pep 70996 pg/mL (0-900) H 09/12/16 11:39 Total Protein 7.7 g/dL (6.3-8.2) 09/12/16 11:39 Albumin 4.2 g/dL (3.9-5) 09/12/16 11:39 Albumin/Globulin Ratio 1.2 % 09/12/16 11:39 Triglycerides 138 mg/dL (2-149) 09/12/16 11:39 Cholesterol 214 mg/dL (50-199) H 09/12/16 11:39 LDL Cholesterol Direct 110 mg/dL (50-130) 09/12/16 11:39 HDL Cholesterol 77 mg/dL (40-59) H 09/12/16 11:39 Cholesterol/HDL Ratio 2.77 % 09/12/16 11:39 TSH 0.864 mlU/mL (0.270-4.200) 09/12/16 19:58
[2016-09-14] MEDS: ZOCOR PO SCH (22:17)
--- NOTE | 2016-09-15 09:19 | Progress Note ---
Assessment and Plan Impression: * End stage renal disease on HD TTS * SVT * Elevated troponin * Chronic systolic heart failure - TTE LVEF 20-25% (Apr 2016) * Type II DM Plan: * Hemodialysis TTS schedule * UF as tolerated * Cardiology following; recommendations noted * Epogen for goal Hgb 10-12 * Renal diet * Binders with meals Subjective Date of service: 09/15/16 Interval history: Patient reports palpitations this am. Denies chest pain and SOB Objective - Vital Signs Vital signs: Vital Signs - 12hr 09/14/16 09/15/16 09/15/16 22:18 00:54 05:25 Temperature 98.4 F 98.7 F Pulse Rate 73 Pulse Rate [ Apical] Pulse Rate [ 70 70 Left] Respiratory 19 18 Rate Blood Pressure 97/52 Blood Pressure 115/57 136/63 [Left Arm] O2 Sat by Pulse 97 98 Oximetry 09/15/16 07:39 Temperature 97.9 F Pulse Rate Pulse Rate [ 70 Apical] Pulse Rate [ Left] Respiratory 20 Rate Blood Pressure Blood Pressure 130/58 [Left Arm] O2 Sat by Pulse 98 Oximetry - General Appearance General appearance: well-developed, well-nourished EENT: ATNC Respiratory: Present: Clear to Ascultation Cardiology: regular, S1S2 Gastrointestinal: normal, no tenderness, no distended Integumentary: no rash Neurologic: no focal deficit Musculoskeletal: other (no edema) Psychiatric: cooperative - Lab 09/14/16 05:28 09/14/16 05:28 Most recent lab results Calcium 7.4 mg/dL (8.4-10.2) L 09/14/16 05:28 Phosphorus 3.1 mg/dL (2.5-4.5) 09/12/16 11:39 Magnesium 1.8 mg/dL (1.7-2.3) 09/14/16 05:28
--- NOTE | 2016-09-15 11:18 | Progress Note ---
Assessment and Plan Discussed with Dr. Briscoe. Agree with DC plans. SVT converted to sinus rythm. Rhythm strips are reviewed and patient remains in sinus rhythm at a rate of about 70 Non ischemic cardiomyopathy EF 20-25% Discussed about recommondation for AICD-Will get Dr. Gonzalez to see her as an outpatient and plan for the same. Patient is now agreeable to HTN ESRD cont current management, - Patient Problems (1) Hyperkalemia Current Visit: Yes Status: Acute (2) Supraventricular tachycardia Current Visit: Yes Status: Acute (3) ESRD (end stage renal disease) on dialysis Current Visit: No Status: Acute (4) HTN (hypertension) Current Visit: No Status: Acute (5) Nonischemic cardiomyopathy Current Visit: No Status: Acute (6) ESRD (end stage renal disease) Current Visit: No Status: Chronic Subjective Date of service: 09/15/16 Interval history: Patient is feeling well rythm is sinus.Improving. Patient complains of fatigue at times otherwise no significant cardiac symptoms. Objective Vital Signs Temp Pulse Pulse Pulse Resp Resp BP 09/15/16 07:39 97.9 F 70 20 09/15/16 05:25 98.7 F 70 18 09/15/16 00:54 98.4 F 70 19 09/14/16 22:18 73 97/52 09/14/16 20:00 98.1 F 73 19 09/14/16 19:30 86 20 20 09/14/16 19:24 73 09/14/16 15:51 98.3 F 72 18 09/14/16 11:35 98.2 F 72 20 BP Pulse Ox 09/15/16 07:39 130/58 98 09/15/16 05:25 136/63 98 09/15/16 00:54 115/57 97 09/14/16 22:18 09/14/16 20:00 97/52 100 09/14/16 19:30 97 09/14/16 19:24 09/14/16 15:51 100/55 98 09/14/16 11:35 86/50 97 - Physical Examination General: Appears Well Neck: Positive: neck supple Cardiac: Positive: Reg Rate and Rhythm Lungs: Positive: clear to auscultation Extremities: Present: normal - Imaging and Cardiology EKG: report reviewed (SVT with conversion in to sinus after adenos)
--- NOTE | 2016-09-15 11:46 | Discharge Summary ---
Providers - Providers Date of Admission: 09/12/16 15:30 Date of discharge: 09/15/16 Attending physician: KRISTI CURIEL Primary care physician: FREIGHT INSPECTOR Hospitalization Reason for admission: supraventricular tachycardia/palpitations Condition: Stable Pertinent studies: Chest x-ray; no acute cardiopulmonary abnormality noted, interval resolution of CHF Procedures: Hemodialysis per schedule Hospital course: 76-year-old -Chinese female patient with significant past medical history of type 2 diabetes mellitus and end-stage renal disease on hemodialysis hypertension history of CVA and TIA he was admitted through emergency room with palpitations noted to have SVT received adenosine with the conversion to sinus rhythm patient was admitted symptomatically managed subsequently evaluated by commercial illustrator and medications were optimized patient also was evaluated by fish stringer assembler and received hemodialysis per schedule Patient did not have any new episodes of SVT or any other arrhythmias Echocardiogram is consistent with nonischemic cardiomyopathy with ejection fraction of 20-25% Cardiology recommended ICD placement as outpatient Today she is comfortable in bed alert awake oriented 3 not in acute distress vital signs reviewed stable [id number] evaluation and physical examination done by me prior to discharge did not show any new changes as detailed below Hemodynamically and clinically stable for discharge does not need any further acute inpatient care at this time Medical records reviewed and DC plan discussed in detail with the patient her nurse as well as the case management Final diagnosis --Supraventricular tachycardia status post chemical cardioversion now sinus rhythm --Nonischemic cardiomyopathy ejection fraction 20-25% --Type 2 diabetes mellitus stable --End-stage renal disease on hemodialysis --Nonspecific elevation of troponins resolved --Hypertension well-controlled --History of CVA with no residual weakness --Dyslipidemia stable Disposition: DISCHARGED TO HOME OR SELFCARE Time spent for discharge: 33 min Core Measure Documentation - Palliative Care Palliative Care/ Comfort Measures: Not Applicable - Core Measures Any of the following diagnoses?: heart failure - Heart Failure Discharge Requirements ANAND/ARB for LVSD if EF <40%: Yes Beta nancy at discharge: Yes Exam - Constitutional Vitals: Temp Pulse Resp BP Pulse Ox 97.9 F 70 20 130/58 98 09/15/16 07:39 09/15/16 10:00 09/15/16 10:00 09/15/16 07:39 09/15/16 10:00 General appearance: Present: no acute distress, well-nourished - EENT Eyes: Present: PERRL, EOM intact - Neck Neck: Present: supple, normal ROM - Respiratory Respiratory effort: normal Respiratory: bilateral: diminished, negative: rales, rhonchi, wheezing - Cardiovascular Rhythm: regular Heart Sounds: Present: S1 & S2 - Extremities Extremities: no ischemia, pulses intact, pulses symmetrical Peripheral Pulses: within normal limits - Abdominal General gastrointestinal: Present: soft, non-tender, non-distended, normal bowel sounds - Integumentary Integumentary: Present: clear, warm - Musculoskeletal Musculoskeletal: strength equal bilaterally, generalized weakness - Psychiatric Psychiatric: appropriate mood/affect, cooperative - Neurologic Neurologic: CNII-XII intact, moves all extremities Plan Activity: advance as tolerated, fall precautions Diet: low cholesterol, low salt, diabetic Additional Instructions: Continue insulin as before. Do not take insulin if blood sugars are less than 110. Follow renal/hemodialysis per schedule. Follow cardiology in 1 week for evaluation for ICD placement. Chest pain or shortness of breath contact MD, or go to emergency room Follow up with: PRIMARY MD ERNESTINE [Primary Care Provider] - 3-5 Days JANETT OLSON MD [Staff Physician] - 7 Days
[2016-09-15] MEDS: NOVOLOG SUB-Q SCH (11:53)
[2016-09-15] MEDS: COREG PO SCH (11:55)
[2016-09-15] MEDS: BABY ASPIRIN PO SCH (11:55)
[2016-09-15] MEDS: HEPARIN SUB-Q SCH (11:56)
[2016-09-15] MEDS: LASIX PO SCH (11:57)
[2016-09-15] MEDS: OYSCO D 500 MG-200 UNIT PO SCH (11:58)
[2016-09-15] MEDS: NORMODYNE PO SCH (11:58)
[2016-09-15] MEDS: ZESTRIL PO SCH (11:58)
[2016-09-15 12:23] VITALS: BP 118/58
== END 2016-09-15 12:32 | disposition home or self-care (01) | DRG 308 ==
LOC: ED 11:10 → 4A 15:30
PROVIDERS: ADMIT Hospitalist; ATTEND Internal Medicine
PROC: 5A1D00Z (ICD-10-PCS; principal; 2016-09-13)
DX: I47.1 Supraventricular tachycardia (principal); N18.6 End stage renal disease; I50.43 Acute on chronic combined systolic (congestive) and diastolic (congestive) heart failure; I13.2 Hypertensive heart and chronic kidney disease with heart failure and with stage 5 chronic kidney disease, or end stage renal disease; I42.9 Cardiomyopathy, unspecified; E11.22 Type 2 diabetes mellitus with diabetic chronic kidney disease; E78.5 Hyperlipidemia, unspecified; I34.0 Nonrheumatic mitral (valve) insufficiency; E87.5 Hyperkalemia; Z96.649 Presence of unspecified artificial hip joint; Z79.82 Long term (current) use of aspirin; Z79.899 Other long term (current) drug therapy; Z88.8 Allergy status to other drugs, medicaments and biological substances; Z99.2 Dependence on renal dialysis; Z98.890 Other specified postprocedural states; Z87.891 Personal history of nicotine dependence; Z98.49 Cataract extraction status, unspecified eye; Z89.422 Acquired absence of other left toe(s); Z82.49 Family history of ischemic heart disease and other diseases of the circulatory system; Z86.73 Personal history of transient ischemic attack (TIA), and cerebral infarction without residual deficits
CPT/HCPCS: 36415; 71010; 80048; 80061; 80074; 82550; 82553; 82962; 83735; 83880; 84100; 84443; 84484; 85025; 85610; 85730; 93005; 93010; 96374; 99291; J0153; J1644; J1815; J2270; J7030

== ENCOUNTER 2016-12-02 07:11 | Inpatient (IN) | payer MEDICARE ==
--- NOTE | 2016-12-02 07:51 | XRay Report ---
ROUTINE CHEST, TWO VIEWS: HISTORY: Shortness of breath. Compared to 09/12/16. Mild cardiomegaly, mild pulmonary venous congestion and trace bilateral pleural effusions are identified. There are mild chronic interstitial changes in both lungs but no evidence for pneumonia or pneumothorax. Vascular stent in the right brachiocephalic vein is unchanged. No acute thoracic deformity. IMPRESSION: Mild CHF.
[2016-12-02 08:10] LABS: BUN/Creatinine Ratio 6.94; Calcium 7.2 mg/dL (8.4-10.2); Chloride 96.2 mmol/L (98-107); Potassium 4.8 mmol/L (3.6-5.0)
[2016-12-02 08:27] LABS: Basophils % (Auto) 0.4 % (0.0-1.8); Eosinophils % (Auto) 3.4 % (0.0-4.3); Hemoglobin 10.3 gm/dl (10.1-14.3); Mean Corpuscular HGB Conc 32 % (30-34); Mean Corpuscular Hemoglobin 27 pg (28-32); Mean Corpuscular Volume 82 fl (79-97); Platelet Count 171 K/mm3 (140-440); Red Blood Count 3.91 M/mm3 (3.65-5.03); White Blood Count 4.2 K/mm3 (4.5-11.0)
--- NOTE | 2016-12-02 08:56 | Emergency Department Report ---
ED Shortness of Breath HPI - General Chief Complaint: Dyspnea/Respdistress Stated Complaint: SOB/RAPID HEARTBEAT Time Seen by Provider: 12/02/16 08:22 Source: patient, EMS, old records reviewed Mode of arrival: Wheelchair Limitations: No Limitations - History of Present Illness Initial Comments: 76 year old female with a past medical history end-stage renal disease on dialysis, diabetes, hypertension, and pulmonary hypertension presents to Hospital complaints as shortness of breath and palpitations. Symptoms woke her up from sleep this a.m. Symptoms were constant alleviated once she received oxygen. Positive associated generalized weakness with episode. Symptoms currently improved and patient is comfortable on room air at this time. She denies chest pain, nausea, vomiting, diaphoresis. Patient states she has had similar episodes in the past. Patient is due for dialysis today. Chief Librarian Music Department: Dr. Duffy Previous medical record reviewed:05/11/2016 cardiac stress test negative with the EF of 20% - Related Data Home Medications Medication Instructions Recorded Confirmed Last Taken Calcium Carbonate/Vitamin D3 1 tab PO AC 05/08/16 09/12/16 Unknown [Calcium 500 + D Tablet] Furosemide [Lasix TAB] 10 mg PO DAILY 09/12/16 09/12/16 Unknown Insulin Glargine [Lantus VIAL] 20 units SUB-Q PRN 09/12/16 09/12/16 Unknown Insulin Lispro [HumaLOG VIAL] 5 units SUB-Q AC 09/12/16 09/12/16 Unknown Labetalol [Normodyne TAB] 100 mg PO DAILY 09/12/16 09/12/16 Unknown Lisinopril/Hydrochlorothiazide 1 tab PO QDAY 09/12/16 09/12/16 Unknown [Zestoretic 20-12.5 mg] Previous Rx's Medication Instructions Recorded Last Taken Type Aspirin [Aspirin BABY CHEW TAB] 81 mg PO QDAY #30 tab.chew 05/12/16 Unknown Rx Simvastatin [Zocor TAB] 40 mg PO QHS #30 tablet 05/12/16 Unknown Rx Carvedilol [Coreg] 12.5 mg PO BID tablet 09/15/16 Unknown Rx Allergies Allergy/AdvReac Type Severity Reaction Status Date / Time phenytoin sodium Allergy Anaphylaxis Verified 05/08/16 07:07 [From Dilantin] phenytoin sodium extended Allergy Anaphylaxis Verified 05/08/16 07:07 [From Dilantin] ED Review of Systems ROS: Stated complaint: SOB/RAPID HEARTBEAT Other details as noted in HPI Comment: All other systems reviewed and negative Other: Lab Results 12/02/16 12/02/16 Range/Units 07:40 07:40 WBC 4.2 L (4.5-11.0) K/mm3 RBC 3.91 (3.65-5.03) M/mm3 Hgb 10.3 (10.1-14.3) gm/dl Hct 32.0 (30.3-42.9) % MCV 82 (79-97) fl MCH 27 L (28-32) pg MCHC 32 (30-34) % RDW 18.0 H (13.2-15.2) % Plt Count 171 (140-440) K/mm3 Lymph % (Auto) 16.4 (13.4-35.0) % [place] % (Auto) 8.0 H (0.0-7.3) % Eos % (Auto) 3.4 (0.0-4.3) % Baso % (Auto) 0.4 (0.0-1.8) % Lymph # 0.7 L (1.2-5.4) K/mm3 [place] # 0.3 (0.0-0.8) K/mm3 Eos # 0.1 (0.0-0.4) K/mm3 Baso # 0.0 (0.0-0.1) K/mm3 Seg Neutrophils % 71.8 H (40.0-70.0) % Seg Neutrophils # 3.0 (1.8-7.7) K/mm3 Sodium 140 (137-145) mmol/L Potassium 4.8 (3.6-5.0) mmol/L Chloride 96.2 L (98-107) mmol/L Carbon Dioxide 23 (22-30) mmol/L Anion Gap 26 mmol/L BUN 59 H (7-17) mg/dL Creatinine 8.5 H (0.7-1.2) mg/dL Estimated GFR 6 ml/min BUN/Creatinine Ratio 6.94 % Glucose 94 (65-100) mg/dL Calcium 7.2 L (8.4-10.2) mg/dL Troponin T 0.058 H (0.00-0.029) ng/mL Triglycerides 162 H (2-149) mg/dL Cholesterol 187 (50-199) mg/dL LDL Cholesterol Direct 94 (50-130) mg/dL HDL Cholesterol 61 H (40-59) mg/dL Cholesterol/HDL Ratio 3.06 % Constitutional: No fevers chills Eyes: No eye pain visual changes ENT: No ear pain or throat pain Neck: Denies pain Respiratory: Denies cough wheezing Cardiovascular: Denies palpitations, syncope GI: Denies abdominal pain, nausea, vomiting, diarrhea : Minimum urine output at baseline Musculoskeletal: Denies back pain Skin: Denies rash, lesions, erythema Neurologic: Denies headache, numbness, weakness ED Past Medical Hx - Past Medical History Previous Medical History?: Yes Hx Hypertension: Yes Hx Heart Attack/AMI: No Hx Congestive Heart Failure: No Hx Diabetes: Yes Hx Deep Vein Thrombosis: No Hx Liver Disease: No Hx Renal Disease: Yes (Dialysis ) Hx Sickle Cell Disease: No Hx Arthritis: No Hx Seizures: No Hx Kidney Stones: Yes Hx Dementia: No Hx HIV: No Additional medical history: poor circulation left leg, Pulmonary HTN - Surgical History Past Surgical History?: Yes Hx Coronary Stent: No Hx Open Heart Surgery: No Hx Pacemaker: No Hx Internal Defibrillator: No Hx Cholecystectomy: No Hx Appendectomy: No Hx Breast Surgery: No Additional Surgical History: L footamputation of toes; AV Fistula Upper R arm, PAD with lower extremity bypass - Social History Smoking Status: Never Smoker Substance Use Type: Prescribed - Medications Home Medications: Home Medications Medication Instructions Recorded Confirmed Last Taken Type Calcium Carbonate/Vitamin D3 1 tab PO AC 05/08/16 09/12/16 Unknown History [Calcium 500 + D Tablet] Aspirin [Aspirin BABY CHEW TAB] 81 mg PO QDAY #30 tab.chew 05/12/16 09/12/16 Unknown Rx Simvastatin [Zocor TAB] 40 mg PO QHS #30 tablet 05/12/16 09/12/16 Unknown Rx Furosemide [Lasix TAB] 10 mg PO DAILY 09/12/16 09/12/16 Unknown History Insulin Glargine [Lantus VIAL] 20 units SUB-Q PRN 09/12/16 09/12/16 Unknown History Insulin Lispro [HumaLOG VIAL] 5 units SUB-Q AC 09/12/16 09/12/16 Unknown History Labetalol [Normodyne TAB] 100 mg PO DAILY 09/12/16 09/12/16 Unknown History Lisinopril/Hydrochlorothiazide 1 tab PO QDAY 09/12/16 09/12/16 Unknown History [Zestoretic 20-12.5 mg] Carvedilol [Coreg] 12.5 mg PO BID tablet 09/15/16 Unknown Rx ED Physical Exam - General Limitations: No Limitations - Other Other exam information: General: No limitations, patient is alert in no acute distress Head exam: Atraumatic, normocephalic Eyes exam: Normal appearance ENT: Moist mucous membrane, normal oropharynx Neck exam: Normal inspection, full range of motion Respiratory exam: Clear to auscultation bilateral, no wheezes, rales, crackles Cardiovascular: Normal rate and rhythm Abdomen: Soft, nondistended, and nontender, with normal bowel sounds, no rebound, or guarding Extremity: Full range of motion, scar to left medial lower leg from previous vein harvesting surgery, left foot amputation of all toes. No calf tenderness or edema Back: Normal Inspection, full range of motion, no tenderness Neurologic: Alert, oriented x3, cranial nerves intact, no motor or sensory deficit Psychiatric: normal affect, normal mood Skin: Warm, dry, intact ED Course Vital Signs 12/02/16 07:19 Temperature 97.7 F Pulse Rate 92 H Respiratory 18 Rate Blood Pressure 157/89 O2 Sat by Pulse 100 Oximetry - Reevaluation(s) Reevaluation #1: 12/02/16 09:03 Patient stable in the ED - Consultations Consultation #1: 12/02/16 08:54 case d/w Stewart (nephrology) consulted for dialysis ED Medical Decision Making - Lab Data Result diagrams: 12/02/16 07:40 12/02/16 07:40 Lab Results 12/02/16 12/02/16 Range/Units 07:40 07:40 WBC 4.2 L (4.5-11.0) K/mm3 RBC 3.91 (3.65-5.03) M/mm3 Hgb 10.3 (10.1-14.3) gm/dl Hct 32.0 (30.3-42.9) % MCV 82 (79-97) fl MCH 27 L (28-32) pg MCHC 32 (30-34) % RDW 18.0 H (13.2-15.2) % Plt Count 171 (140-440) K/mm3 Lymph % (Auto) 16.4 (13.4-35.0) % [place] % (Auto) 8.0 H (0.0-7.3) % Eos % (Auto) 3.4 (0.0-4.3) % Baso % (Auto) 0.4 (0.0-1.8) % Lymph # 0.7 L (1.2-5.4) K/mm3 [place] # 0.3 (0.0-0.8) K/mm3 Eos # 0.1 (0.0-0.4) K/mm3 Baso # 0.0 (0.0-0.1) K/mm3 Seg Neutrophils % 71.8 H (40.0-70.0) % Seg Neutrophils # 3.0 (1.8-7.7) K/mm3 Sodium 140 (137-145) mmol/L Potassium 4.8 (3.6-5.0) mmol/L Chloride 96.2 L (98-107) mmol/L Carbon Dioxide 23 (22-30) mmol/L Anion Gap 26 mmol/L BUN 59 H (7-17) mg/dL Creatinine 8.5 H (0.7-1.2) mg/dL Estimated GFR 6 ml/min BUN/Creatinine Ratio 6.94 % Glucose 94 (65-100) mg/dL Calcium 7.2 L (8.4-10.2) mg/dL Troponin T 0.058 H (0.00-0.029) ng/mL Triglycerides 162 H (2-149) mg/dL Cholesterol 187 (50-199) mg/dL LDL Cholesterol Direct 94 (50-130) mg/dL HDL Cholesterol 61 H (40-59) mg/dL Cholesterol/HDL Ratio 3.06 % - EKG Data -: EKG Interpreted by Me (sinus rhythm rate 90 LVH lateral T inversion) - EKG Data When compared to previous EKG there are: no significant change (09/14/2016) - Radiology Data Radiology results: report reviewed (chest x-ray: Mild CHF) - Medical Decision Making She has baseline troponin elevation which is unchanged from previous. No pain reported. I suspect the patient had an episode of PND with associated shortness of breath and palpitations. No arrhythmia identified in the ED. Patient will be admitted to the hospital for dialysis. Nephrology has been consulted - Differential Diagnosis CHF, unstable angina, DC, arrhythmia Critical Care Time: No Critical care attestation.: If time is entered above; I have spent that time in minutes in the direct care of this critically ill patient, excluding procedure time. ED Disposition Clinical Impression: ESRD needing dialysis, CHF exacerbation, Heart palpitations Disposition: OP ADMITTED IP TO THIS HOSP Is pt being admited?: Yes Condition: Stable Time of Disposition: 08:55 (Dr Cagle/hosp)
[2016-12-02] MEDS ORDERED: HEPARIN IV PRN (09:05)
[2016-12-02] MEDS ORDERED: NACL 0.9% 100 ML IV PRN (09:05)
[2016-12-02] MEDS ORDERED: HEPARIN 10,000 UNITS/10 ML IV PRN (09:05)
--- NOTE | 2016-12-02 09:19 | History and Physical Report ---
History of Present Illness Date of examination: 12/02/16 Date of admission: 12/02/16 Chief complaint: Dyspnea History of present illness: 76-year-old -[place] female patient with significant past medical history of ESRD on dialysis, type 2 diabetes mellitus, hypertension, history of CVA/TIA, PVD and pulmonary hypertension presents through the emergency department with complaints of dyspnea and palpitations. Patient had a recent hospitalization in August of this year for similar complaints and was found to have paroxysmal supraventricular tachycardia treated with adenosine. Today, patient states her symptoms awakened her from sleep and remained constant until alleviated with the administration of oxygen. Patient denies any chest pain, nausea, vomiting or diaphoresis. On her most recent hospitalization echocardiogram was done and revealed nonischemic cardiomyopathy with ejection fraction of 20-25%. Cardiology recommended ICD placement as outpatient at that time. Other recent cardiac workup included cardiac stress tests on 05/11/16 which is found to be negative. No cough or cold-like symptoms. No fever or chills. Past History Past Medical History: diabetes, ESRD, hypertension, other (pulmonary htn) Past Surgical History: Other (L footamputation of toes; AV Fistula Upper R arm, PAD with lower extremity bypass) Social history: no significant social history Family history: no significant family history Medications and Allergies Allergies Allergy/AdvReac Type Severity Reaction Status Date / Time phenytoin sodium Allergy Anaphylaxis Verified 05/08/16 07:07 [From Dilantin] phenytoin sodium extended Allergy Anaphylaxis Verified 05/08/16 07:07 [From Dilantin] Home Medications Medication Instructions Recorded Confirmed Last Taken Type Calcium Carbonate/Vitamin D3 1 tab PO AC 05/08/16 09/12/16 Unknown History [Calcium 500 + D Tablet] Aspirin [Aspirin BABY CHEW TAB] 81 mg PO QDAY #30 tab.chew 05/12/16 09/12/16 Unknown Rx Simvastatin [Zocor TAB] 40 mg PO QHS #30 tablet 05/12/16 09/12/16 Unknown Rx Furosemide [Lasix TAB] 10 mg PO DAILY 09/12/16 09/12/16 Unknown History Insulin Glargine [Lantus VIAL] 20 units SUB-Q PRN 09/12/16 09/12/16 Unknown History Insulin Lispro [HumaLOG VIAL] 5 units SUB-Q AC 09/12/16 09/12/16 Unknown History Labetalol [Normodyne TAB] 100 mg PO DAILY 09/12/16 09/12/16 Unknown History Lisinopril/Hydrochlorothiazide 1 tab PO QDAY 09/12/16 09/12/16 Unknown History [Zestoretic 20-12.5 mg] Carvedilol [Coreg] 12.5 mg PO BID tablet 09/15/16 Unknown Rx Active Meds: Active Medications Heparin Sodium (Porcine) (Heparin 10,000 Units/10 Ml) 2,000 unit IV ALHAJI PRN PRN Reason: hemodialysis Heparin Sodium (Porcine) (Heparin) 5,000 unit IV ALHAJI PRN PRN Reason: hemodialysis Sodium Chloride (Nacl 0.9%) 100 mls @ 999 mls/hr IV ALHAJI PRN PRN Reason: Hypotension Review of Systems All systems: negative Exam - Constitutional Vitals: Temp Pulse Resp BP Pulse Ox 97.7 F 92 H 18 157/89 100 12/02/16 07:19 12/02/16 07:19 12/02/16 07:19 12/02/16 07:19 12/02/16 07:19 General appearance: Present: no acute distress, well-nourished - EENT Eyes: Present: PERRL ENT: hearing intact, clear oral mucosa - Neck Neck: Present: supple, normal ROM - Respiratory Respiratory effort: normal Respiratory: bilateral: CTA - Cardiovascular Heart Sounds: Present: S1 & S2. Absent: rub, click - Extremities Extremities: pulses symmetrical, No edema Peripheral Pulses: within normal limits - Abdominal General gastrointestinal: Present: soft, non-tender, non-distended, normal bowel sounds Female genitourinary: Present: normal - Integumentary Integumentary: Present: clear, warm, dry - Musculoskeletal Musculoskeletal: gait normal, strength equal bilaterally - Psychiatric Psychiatric: appropriate mood/affect, intact judgment & insight - Neurologic Neurologic: CNII-XII intact, moves all extremities Results - Labs CBC & Chem 7: 12/02/16 07:40 12/02/16 07:40 Labs: Laboratory Last Values WBC 4.2 K/mm3 (4.5-11.0) L 12/02/16 07:40 RBC 3.91 M/mm3 (3.65-5.03) 12/02/16 07:40 Hgb 10.3 gm/dl (10.1-14.3) 12/02/16 07:40 Hct 32.0 % (30.3-42.9) 12/02/16 07:40 MCV 82 fl (79-97) 12/02/16 07:40 MCH 27 pg (28-32) L 12/02/16 07:40 MCHC 32 % (30-34) 12/02/16 07:40 RDW 18.0 % (13.2-15.2) H 12/02/16 07:40 Plt Count 171 K/mm3 (140-440) 12/02/16 07:40 Lymph % (Auto) 16.4 % (13.4-35.0) 12/02/16 07:40 [place] % (Auto) 8.0 % (0.0-7.3) H 12/02/16 07:40 Eos % (Auto) 3.4 % (0.0-4.3) 12/02/16 07:40 Baso % (Auto) 0.4 % (0.0-1.8) 12/02/16 07:40 Lymph # 0.7 K/mm3 (1.2-5.4) L 12/02/16 07:40 [place] # 0.3 K/mm3 (0.0-0.8) 12/02/16 07:40 Eos # 0.1 K/mm3 (0.0-0.4) 12/02/16 07:40 Baso # 0.0 K/mm3 (0.0-0.1) 12/02/16 07:40 Seg Neutrophils % 71.8 % (40.0-70.0) H 12/02/16 07:40 Seg Neutrophils # 3.0 K/mm3 (1.8-7.7) 12/02/16 07:40 Sodium 140 mmol/L (137-145) 12/02/16 07:40 Potassium 4.8 mmol/L (3.6-5.0) 12/02/16 07:40 Chloride 96.2 mmol/L (98-107) L 12/02/16 07:40 Carbon Dioxide 23 mmol/L (22-30) 12/02/16 07:40 Anion Gap 26 mmol/L 12/02/16 07:40 BUN 59 mg/dL (7-17) H 12/02/16 07:40 Creatinine 8.5 mg/dL (0.7-1.2) H 12/02/16 07:40 Estimated GFR 6 ml/min 12/02/16 07:40 BUN/Creatinine Ratio 6.94 % 12/02/16 07:40 Glucose 94 mg/dL (65-100) 12/02/16 07:40 Calcium 7.2 mg/dL (8.4-10.2) L 12/02/16 07:40 Troponin T 0.058 ng/mL (0.00-0.029) H 12/02/16 07:40 Triglycerides 162 mg/dL (2-149) H 12/02/16 07:40 Cholesterol 187 mg/dL (50-199) 12/02/16 07:40 LDL Cholesterol Direct 94 mg/dL (50-130) 12/02/16 07:40 HDL Cholesterol 61 mg/dL (40-59) H 12/02/16 07:40 Cholesterol/HDL Ratio 3.06 % 12/02/16 07:40 Assessment and Plan Assessment and plan: 1. Acute systolic heart failure exacerbation. Patient with previous echocardiogram in August revealed EF of 20-25%. Patient will be placed on the CHF pathway. Patient will have plans for hemodialysis for volume control this morning. Cardiology consultation. 2. ESRD on hemodialysis. Nephrology consultation. 3. Diabetes mellitus type 2. Continue Accu-Cheks and sliding scale illness. 4. Hypertension. Resume antihypertensives medications. 5. Pulmonary hypertension. 6. Peripheral vascular disease. Patient status post lower extremity bypass surgery.
[2016-12-02] MEDS ORDERED: ZOFRAN IV PRN (09:24)
[2016-12-02] MEDS ORDERED: DULCOLAX PR PRN (09:24)
[2016-12-02] MEDS ORDERED: TYLENOL PO PRN (09:24)
[2016-12-02] MEDS ORDERED: D50W (25GM) IV PRN (09:24)
[2016-12-02] MEDS ORDERED: MILK OF MAGNESIA PO PRN (09:24)
--- NOTE | 2016-12-02 09:27 | Admit Criteria Form ---
Admission Criteria Documentation: RENAL FAILURE, ACUTE Clinical Indications for Admission to Inpatient Care ( Place 'X' for any and all applicable criteria): Admission is indicated for ALL (if I & II) or III of the following [A](2)(3)(4)( 5)(6)(7): [X ]I. Acute renal failure as indicated by ANY ONE of the following: [ ]a) A 3-fold rise in serum creatinine from baseline [ X]b) Serum creatinine greater than 4 mg/dL (354 micromoles/L) with an acute rise greater than 0.5 mg/dL (44.2 micromoles/L) [ ]c) Reduction of more than 75% in estimated glomerular filtration rate from baseline [ ]d) Estimated glomerular filtration rate less than 35 mL/min/1.73m2 (0.59mL/sec/1.73m2)in a child up to 18 years of age [ ]e) Anuria indicated by ALL of the following: [ ]i) Adequate volume status [ ]ii) Cessation of urine output indicated by ANY ONE of the following: [ ]1) Urine output less than 0.3 mL/kg/hr for 24 hours [ ]2) Anuria (urine output less than 0.1 mL/kg/ hr) for 12 hours [X ] II. Renal failure cannot be managed in an outpatient setting or observational care setting as indicating by ANY ONE of the following: [ ]a) Altered mental status that is severe or persistent [ ]b) Volume overload or Respiratory distress (eg, clinically significant pulmonary edema) that is severe or persistent [ ]c) Cardiac arrhythmias of immediate concern [ ]d) Hemodynamic instability [ ]e) Clinically significant electrolyte abnormality that requires inpatient care (eg, hyperkalemia with severe ECG findings)[B] [ ]f) Clinically significant metabolic abnormality (eg, acidosis) that is severe or persistent [ ]g) Acute treatment of renal failure (eg, renal replacement therapy) not feasible or appropriate in observational care setting [ ]h) Clinical situation too unstable or uncertain (eg, inadequate urine output, ongoing decline in renal function, etiology unclear) [ ]i) Necessary support and caregiver ability to comply with outpatient treatment cannot be arranged in observation care timeframe (eg, within 24 hours) [X ]j) Other significant finding or clinical condition judged not to be within scope of observation care [ ]III.General contraindications and/or Inappropriate clinical situations for Observational Care in patients with Acute Renal Failure, when ANY ONE of the following is required: [ ]a) Prediction of prolongation of LOS based on ANY ONE of the following may be considered as a contraindication for observational care 2, 3, 4, 5, 6, 7, 8 , 9, 10, 11 [ ]i) Age > 65 yrs. [ ]ii) Patient arriving by ambulance [ ]iii) Patient with high acuity [ ]iv) Patient requiring vital sign monitoring [ ]v) Patient on IV medication [ ]b) Systolic blood pressures 180mmHg 3,12 [ ]c) Patient with altered mental status including delirium and other alteration of consciousness, (3) [ ]d) Patient whose discharge disposition will be to a [facility] home or rehabilitation home should not be managed in Emergency Department Observation Unit. CMS rule requires 3 days hospital stay before such placement.3,13 [ ]e) Patient with failure to thrive due to broad array of etiologies 3, 16,17 [ ]f) Inability to ambulate 3,14 Extended stay beyond goal length of stay may be needed for(13) [ ]a) Continuing uremic complications [ ]b) Care for comorbidities [ ]c) acute renal failure [ ]d) Need for dialysis The original [employer] content created by [employer] has been revised. The portions of the content which have been revised are identified through the use of italic text or in bold, and [facility] has neither reviewed nor approved the modified material. All other unmodified content is copyright [facility]. Please see references footnoted in the original [facility] edition 2016 Admission Criteria Met: Yes
[2016-12-02] MEDS ORDERED: NON-FORMULARY (Insulin Glargine 20 UNITS) SUB-Q SCH (09:30)
[2016-12-02] MEDS ORDERED: LOVENOX SUB-Q SCH (10:00)
[2016-12-02] MEDS ORDERED: NON-FORMULARY (Lisinopril/Hydrochlorothiazide [Zestoretic 20-12.5 Mg] 1 TAB) PO SCH (10:00)
--- NOTE | 2016-12-02 10:14 | Consultation ---
History of Present Illness - Reason for Consult Consult date: 12/02/16 - History of Present Illness pt with ESRD,DM,HTN presents with palpitations, weakness. HD on T/T/S. Suggest cardiology evaluation. Check TFTs. Pt was seen and examined in dialysis. Right upper arm AVF functioning. Consult dictated Past History Past Medical History: diabetes, ESRD, hypertension, other (pulmonary htn) Past Surgical History: Other (L footamputation of toes; AV Fistula Upper R arm, PAD with lower extremity bypass) Social history: no significant social history Family history: no significant family history Medications and Allergies Allergies Allergy/AdvReac Type Severity Reaction Status Date / Time phenytoin sodium Allergy Anaphylaxis Verified 05/08/16 07:07 [From Dilantin] phenytoin sodium extended Allergy Anaphylaxis Verified 05/08/16 07:07 [From Dilantin] Home Medications Medication Instructions Recorded Confirmed Last Taken Type Calcium Carbonate/Vitamin D3 4 tab PO AC 05/08/16 09/12/16 Unknown History [Calcium 500 + D Tablet] Insulin Glargine [Lantus VIAL] 20 units SUB-Q PRN 09/12/16 12/02/16 Unknown History Insulin Lispro [HumaLOG VIAL] 5 units SUB-Q AC 09/12/16 09/12/16 Unknown History Labetalol [Normodyne TAB] 50 mg PO BID 09/12/16 09/12/16 Unknown History Lisinopril/Hydrochlorothiazide 0.5 tab PO BID 09/12/16 09/12/16 Unknown History [Zestoretic 20-12.5 mg] Simvastatin [Zocor TAB] 10 mg PO QHS 12/02/16 12/02/16 Unknown History Active Meds: Active Medications Acetaminophen (Tylenol) 650 mg PO Q4H PRN PRN Reason: Pain MILD(1-3)/Fever >100.5/KEE Aspirin (Baby Aspirin) 81 mg PO QDAY LUCIO Bisacodyl (Dulcolax) 10 mg [place] QDAY PRN PRN Reason: Constipation unrelieved by MOM Carvedilol (Coreg) 12.5 mg PO BID LUC[facility] Dextrose (D50w (25gm)) 50 ml IV PRN PRN PRN Reason: Hypoglycemia Enoxaparin Sodium (Lovenox) 30 mg SUB-Q QDAY [facility] Furosemide (Lasix) 10 mg PO DAILY [facility] Heparin Sodium (Porcine) (Heparin 10,000 Units/10 Ml) 2,000 unit IV ALHAJI PRN PRN Reason: hemodialysis Heparin Sodium (Porcine) (Heparin) 5,000 unit IV ALHAJI PRN PRN Reason: hemodialysis Hydrochlorothiazide (Hctz) 12.5 mg PO QDAY [facility] Sodium Chloride (Nacl 0.9%) 100 mls @ 999 mls/hr IV ALHAJI PRN PRN Reason: Hypotension Insulin Human Regular (Novolin R) 0 units SUB-Q ACHS LUCIO PRN Reason: Protocol Labetalol HCl (Normodyne) 100 mg PO DAILY [facility] Lisinopril (Zestril) 20 mg PO QDAY [facility] Magnesium Hydroxide (Milk Of Magnesia) 30 ml PO Q4H PRN PRN Reason: Constipation Miscellaneous Medication (Insulin Glargine) 20 units SUB-Q PRN LUCIO Miscellaneous Medication (Insulin Lispro [Humalog Vial]) 5 units SUB-Q AC LUCIO Multivitamins/Minerals (Caltrate Plus) 1 each PO BID [facility] Ondansetron HCl (Zofran) 4 mg IV Q8H PRN PRN Reason: N/V unrelieved by Luana Simvastatin (Zocor) 40 mg PO QHS [facility] Exam - Constitutional Vitals: Temp Pulse Resp BP Pulse Ox 97.7 F 90 15 156/78 98 12/02/16 07:19 12/02/16 09:30 12/02/16 09:30 12/02/16 09:30 12/02/16 09:30 Results - Labs CBC & Chem 7: 12/02/16 07:40 12/02/16 07:40
[2016-12-02] MEDS ORDERED: NACL 0.9 (PRIMING MACHINE ONLY DIALYSIS) MC ONE (10:37)
[2016-12-02] MEDS ORDERED: INSULIN LISPRO 5 UNIT SUB-Q SCH (11:30)
[2016-12-02] MEDS: NOVOLOG SUB-Q SCH ×2 (16:02→18:32)
--- NOTE | 2016-12-02 16:04 | Consultation ---
History of Present Illness Consult date: 12/02/16 Requesting physician: BILLY NOLAND Consult reason: congestive heart failure History of present illness: The patient is a 76 year old female with a history of ESRD on HD, hypertension, SVT, NICMP, diabetes, hyperlipidemia, CVA, PVD. She is followed by Dr. Whelan at [place]. She presented with complaints of dyspnea and palpitations since this AM around 6AM. She denies any chest pain, orthopnea, nausea, vomiting, diaphoresis , dizziness, or syncope. Denies any precipitating, aggravating, or alleviating factors. She reports that her symptoms resolved once she reached the emergency department and received oxygen via nasal cannula. Her evaluation, she denies any cardiac complaints. She reports that for the last month, she has noted her post hemodialysis "dry weight" to be higher than normal and believes that possibly she needs more volume taken off per hemodialysis. Past History Past Medical History: diabetes, ESRD, hypertension, other (pulmonary htn) Past Surgical History: Other (L footamputation of toes; AV Fistula Upper R arm, PAD with lower extremity bypass) Social history: no significant social history Family history: no significant family history Medications and Allergies Allergies Allergy/AdvReac Type Severity Reaction Status Date / Time phenytoin sodium Allergy Anaphylaxis Verified 05/08/16 07:07 [From Dilantin] phenytoin sodium extended Allergy Anaphylaxis Verified 05/08/16 07:07 [From Dilantin] Home Medications Medication Instructions Recorded Confirmed Last Taken Type Calcium Carbonate/Vitamin D3 4 tab PO AC 05/08/16 12/02/16 Unknown History [Calcium 500 + D Tablet] Insulin Glargine [Lantus VIAL] 20 units SUB-Q PRN 09/12/16 12/02/16 Unknown History Insulin Lispro [HumaLOG VIAL] 5 units SUB-Q AC 09/12/16 12/02/16 Unknown History Labetalol [Normodyne TAB] 50 mg PO BID 09/12/16 12/02/16 Unknown History Lisinopril/Hydrochlorothiazide 0.5 tab PO BID 09/12/16 12/02/16 Unknown History [Zestoretic 20-12.5 mg] Simvastatin [Zocor TAB] 10 mg PO QHS 12/02/16 12/02/16 Unknown History Active Meds: Active Medications Acetaminophen (Tylenol) 650 mg PO Q4H PRN PRN Reason: Pain MILD(1-3)/Fever >100.5/KEE Aspirin (Baby Aspirin) 81 mg PO QDAY [facility] Bisacodyl (Dulcolax) 10 mg [place] QDAY PRN PRN Reason: Constipation unrelieved by MOM Carvedilol (Coreg) 12.5 mg PO BID [facility] Dextrose (D50w (25gm)) 50 ml IV PRN PRN PRN Reason: Hypoglycemia Enoxaparin Sodium (Lovenox) 30 mg SUB-Q QDAY [facility] Furosemide (Lasix) 10 mg PO DAILY [facility] Heparin Sodium (Porcine) (Heparin 10,000 Units/10 Ml) 2,000 unit IV ALHAJI PRN PRN Reason: hemodialysis Last Admin: 12/02/16 10:45 Dose: 2,000 unit Heparin Sodium (Porcine) (Heparin) 5,000 unit IV ALHAJI PRN PRN Reason: hemodialysis Hydrochlorothiazide (Hctz) 12.5 mg PO QDAY [facility] Sodium Chloride (Nacl 0.9%) 100 mls @ 999 mls/hr IV ALHAJI PRN PRN Reason: Hypotension Insulin Aspart (Novolog) 5 units SUB-Q AC [facility] Last Admin: 12/02/16 16:02 Dose: Not Given Insulin Detemir (Levemir) 20 units SUB-Q QHS [facility] Insulin Human Regular (Novolin R) 0 units SUB-Q ACHS LUCIO PRN Reason: Protocol Last Admin: 12/02/16 16:02 Dose: Not Given Labetalol HCl (Normodyne) 100 mg PO DAILY [facility] Lisinopril (Zestril) 20 mg PO QDAY [facility] Magnesium Hydroxide (Milk Of Magnesia) 30 ml PO Q4H PRN PRN Reason: Constipation Multivitamins/Minerals (Caltrate Plus) 1 each PO BID [facility] Ondansetron HCl (Zofran) 4 mg IV Q8H PRN PRN Reason: N/V unrelieved by Reglan Simvastatin (Zocor) 40 mg PO QHS [facility] Review of Systems Constitutional: no weight loss, no weight gain, no fever, no chills, no sweats Ears, nose, mouth and throat: no ear pain, no nose pain, no nasal congestion, no nasal discharge, no sinus pressure, no sinus pain Cardiovascular: palpitations, shortness of breath, no chest pain, no orthopnea, no edema, no syncope, no lightheadedness, no dyspnea on exertion, no leg edema Respiratory: dyspnea on exertion, no cough, no congestion, no wheezing, no pain Gastrointestinal: no abdominal pain, no nausea, no vomiting, no diarrhea Genitourinary Female: no pelvic pain, no flank pain, no dysuria, no urinary frequency Musculoskeletal: no neck stiffness, no neck pain, no shooting arm pain, no arm numbness/tingling, no low back pain, no shooting leg pain, no leg numbness/ tingling, no redness of joints Integumentary: no rash, no pruritis, no redness, no sores, no wounds Neurological: no head injury, no paralysis, no weakness, no parathesias, no numbness, no tingling, no seizures, no syncope Endocrine: no cold intolerance, no heat intolerance Hematologic/Lymphatic: no easy bruising, no easy bleeding, no lymphadenopathy Allergic/Immunologic: no urticaria, no wheezing Physical Examination Vital Signs Temp Pulse Resp BP Pulse Ox 97.7 F 92 H 18 157/89 100 12/02/16 07:19 12/02/16 07:19 12/02/16 07:19 12/02/16 07:19 12/02/16 07:19 General appearance: no acute distress HEENT: Positive: PERRL, Normocephaly, Mucus Membranes Moist Neck: Positive: neck supple, trachea midline Cardiac: Positive: Reg Rate and Rhythm, S1/S2 Lungs: Positive: Decreased Breath Sounds Neuro: Positive: Grossly Intact, Cranial Nerve 2-12 Intact Abdomen: Positive: Unremarkable, Soft, Active Bowel Sounds Skin: Positive: Clear. Negative: Rash, Wound Musculoskeletal: No Fluid Collection, No Pain, Normal Range of Motion Extremities: Present: normal, upper extr. pulses, lower extr. pulses. Absent: edema Results 12/02/16 07:40 12/02/16 07:40 - Imaging and Cardiology EKG: report reviewed EKG interpretations - Telemetry EKG Rhythm: Sinus Rhythm - EKG Sinus rhythms and dysrhythmias: sinus rhythm Assessment and Plan Assessment: Acute systolic heart failure Nonischemic Cardiomyopathy EF 20-25% - stress test 04/2016 with no significant ischemia, EF 26%. Non-obstructive CAD - per [place] cards note: hx. of [facility] that revealed a 40% LAD lesion (date unknown). ESRD on HD Hypertension Hyperlipidemia Diabetes PVD Anemia Hx. of CVA Plan: Cont current medical management. Volume optimization per nephrology. Cont tele. Pt to consider AICD placement as OP. Assessment and plan reviewed with pt and pt's son at bedside. The patient has been seen in conjunction with Dr. LUPE Richards who agrees with the assessment and plan of care.
[2016-12-02] MEDS: CALTRATE PLUS PO SCH ×2 (17:23→21:34)
[2016-12-02] MEDS: HCTZ PO SCH (17:24)
[2016-12-02] MEDS: NORMODYNE PO SCH (17:24)
[2016-12-02] MEDS: LASIX PO SCH (17:24)
[2016-12-02] MEDS: ZESTRIL PO SCH (17:25)
[2016-12-02] MEDS: BABY ASPIRIN PO SCH (17:26)
[2016-12-02] MEDS: COREG PO SCH ×2 (17:26→21:35)
[2016-12-02] MEDS: ZOCOR PO SCH (21:35)
[2016-12-02] MEDS: LEVEMIR SUB-Q SCH (21:52)
--- NOTE | 2016-12-03 01:34 | Consultation ---
REASON FOR CONSULTATION: Renal failure. HISTORY OF PRESENT ILLNESS: A 76-year-old -[place] female with a history of end-stage renal disease, hypertension, diabetes was brought to the Emergency Room with complaints of palpitations and shortness of breath. Discussed with the ER physician, Dr. Jacob. The patient was reported to have symptoms alleviated once she received oxygen. The patient goes to [facility] on Thursday, , and Thursday under the care of Dr. Duffy, ux manager. The patient states that she had an uneventful dialysis on Thursday. The patient started having palpitations during her sleep and woke up from the sleep with generalized weakness and shortness of breath. Her old medical records were reviewed. The patient had a stress test in 04/2016, which showed no significant ischemia. She has nonischemic cardiomyopathy with left ventricular ejection fraction of 20-25%. In August of this year, the patient was admitted with a similar symptoms and was found to have paroxysmal supraventricular tachycardia treated with adenosine. The patient gives history of diabetes and hypertension and she has been on hemodialysis for 11 years. PAST MEDICAL HISTORY: Type 2 diabetes, hypertension, end-stage renal disease, pulmonary hypertension, peripheral vascular disease, status post left foot amputation of the toes. PERSONAL HISTORY: Denies smoking, alcohol, or drug abuse. FAMILY HISTORY: Her old sister had kidney problems. ALLERGIES: Phenytoin. CURRENT MEDICATIONS: Aspirin 81 mg a day, Coreg 12.5 mg p.o. b.i.d., insulin, labetalol 100 mg a day, lisinopril 20 mg a day, Simvastatin 40 mg a day. REVIEW OF SYSTEMS: The patient denies having palpitations or shortness of breath at present time. Denies chest pain. Denies fever or chills. Denies cold, cough, or sore throat. Denies difficulty swallowing. Denies abdomen pain, nausea, vomiting, diarrhea, or GI bleeding. Denies swelling of the legs. Denies dysuria or hematuria. Other review of systems reviewed and negative. PHYSICAL EXAMINATION: GENERAL: The patient is alert, oriented x 3, well-developed pleasant female, not in acute distress. VITAL SIGNS: Blood pressure 146/70, pulse 85, afebrile. EYES: Pupils reactive. Sclerae nonicteric. Conjunctivae pale. Oral mucosa and tongue are dry. Lips noncyanotic. NECK: No JVD. No thyroid enlargement. LUNGS: Diminished breath sounds in bases. HEART: S1, S2, irregular. A 2/6 systolic murmur along the left sternal border. No pericardial rub. ABDOMEN: Soft, bowel sounds present, no abdomen bruit. No masses palpable. EXTREMITIES: No edema. No cyanosis or clubbing. Able to move all extremities. LABORATORY DATA: Sodium 140, potassium 4.8, chloride 96, CO2 23, BUN 59, creatinine 8.5, glucose 94. WBC 4.2, hemoglobin 10.3, hematocrit 32.0, platelets 171. ASSESSMENT AND PLAN: 1. Paroxysmal cardiac arrhythmias with palpitations. 2. Acute on chronic systolic heart failure, left ventricular ejection fraction of 20-25%. 3. End stage renal disease. 4. Type 2 diabetes. 5. Hypertension. 6. Peripheral vascular disease. 7. Anemia in chronic kidney disease. Hemodialysis is ordered with ultrafiltration as tolerated. Adjust target weight. Avoid hypotension. Renal diet is ordered. Adjust medications per renal function. Cardiology consult reviewed. Thank you for the consultation. JOB# [id number] UMK/NTS
[2016-12-03] MEDS ORDERED: IMODIUM PO ONE (02:32)
[2016-12-03 05:51] LABS: Basophils % (Auto) 0.2 % (0.0-1.8); Eosinophils % (Auto) 2.1 % (0.0-4.3); Hematocrit 31.3 % (30.3-42.9); Hemoglobin 10.3 gm/dl (10.1-14.3); Mean Corpuscular HGB Conc 33 % (30-34); Mean Corpuscular Hemoglobin 27 pg (28-32); Mean Corpuscular Volume 82 fl (79-97); Platelet Count 176 K/mm3 (140-440); Red Blood Count 3.82 M/mm3 (3.65-5.03); White Blood Count 5.8 K/mm3 (4.5-11.0)
[2016-12-03 06:08] LABS: BUN/Creatinine Ratio 5.47; Calcium 8.5 mg/dL (8.4-10.2); Chloride 96.9 mmol/L (98-107); Potassium 4.2 mmol/L (3.6-5.0)
[2016-12-03] MEDS: NOVOLOG SUB-Q SCH ×3 (08:15→17:10)
[2016-12-03] MEDS: HCTZ PO SCH (10:26)
[2016-12-03] MEDS: LASIX PO SCH (10:26)
[2016-12-03] MEDS: BABY ASPIRIN PO SCH (10:26)
[2016-12-03] MEDS: NORMODYNE PO SCH (10:27)
[2016-12-03] MEDS: CALTRATE PLUS PO SCH ×2 (10:27→21:34)
[2016-12-03] MEDS: ZESTRIL PO SCH (10:28)
[2016-12-03] MEDS: COREG PO SCH ×2 (10:29→21:35)
--- NOTE | 2016-12-03 11:58 | Progress Note ---
Assessment and Plan Assessment and plan: The patient is 76 yo woman with a h/o ESRD on HD, htn, SVT, NICMP, CVA, DM, htn who presented with SOB. She admits to hypoglycemia at home. -CP: being evaluated by cardiology -Acute on Chronic HFrEF: diuresis -Hypoglycemia-stat dose of dextrose, d/w nurse -Nonischemic Cardiomyopathy EF 20-25% - stress test 04/2016 with no significant ischemia, EF 26%. -Non-obstructive CAD - per [place] cards note: hx. of [facility] that revealed a 40% LAD lesion (date unknown). -ESRD on HD -Hypertension -Hyperlipidemia -Diabetes -PVD -Anemia Hospitalist Physical - Constitutional Vitals: Temp Pulse Resp BP Pulse Ox 98.8 F 79 18 131/96 94 12/03/16 09:28 12/03/16 10:29 12/03/16 09:28 12/03/16 10:29 12/03/16 09:28 General appearance: Present: no acute distress Results - Labs CBC & Chem 7: 12/03/16 04:43 12/03/16 04:43 Labs: Laboratory Last Values WBC 5.8 K/mm3 (4.5-11.0) 12/03/16 04:43 RBC 3.82 M/mm3 (3.65-5.03) 12/03/16 04:43 Hgb 10.3 gm/dl (10.1-14.3) 12/03/16 04:43 Hct 31.3 % (30.3-42.9) 12/03/16 04:43 MCV 82 fl (79-97) 12/03/16 04:43 MCH 27 pg (28-32) L 12/03/16 04:43 MCHC 33 % (30-34) 12/03/16 04:43 RDW 18.0 % (13.2-15.2) H 12/03/16 04:43 Plt Count 176 K/mm3 (140-440) 12/03/16 04:43 Lymph % (Auto) 13.1 % (13.4-35.0) L 12/03/16 04:43 [place] % (Auto) 8.5 % (0.0-7.3) H 12/03/16 04:43 Eos % (Auto) 2.1 % (0.0-4.3) 12/03/16 04:43 Baso % (Auto) 0.2 % (0.0-1.8) 12/03/16 04:43 Lymph # 0.8 K/mm3 (1.2-5.4) L 12/03/16 04:43 [place] # 0.5 K/mm3 (0.0-0.8) 12/03/16 04:43 Eos # 0.1 K/mm3 (0.0-0.4) 12/03/16 04:43 Baso # 0.0 K/mm3 (0.0-0.1) 12/03/16 04:43 Seg Neutrophils % 76.1 % (40.0-70.0) H 12/03/16 04:43 Seg Neutrophils # 4.4 K/mm3 (1.8-7.7) 12/03/16 04:43 Sodium 143 mmol/L (137-145) 12/03/16 04:43 Potassium 4.2 mmol/L (3.6-5.0) 12/03/16 04:43 Chloride 96.9 mmol/L (98-107) L 12/03/16 04:43 Carbon Dioxide 30 mmol/L (22-30) D 12/03/16 04:43 Anion Gap 20 mmol/L 12/03/16 04:43 BUN 29 mg/dL (7-17) H 12/03/16 04:43 Creatinine 5.3 mg/dL (0.7-1.2) H 12/03/16 04:43 Estimated GFR 10 ml/min 12/03/16 04:43 BUN/Creatinine Ratio 5.47 % 12/03/16 04:43 Glucose 44 mg/dL (65-100) L 12/03/16 04:43 POC Glucose 98 (70-105) 12/02/16 20:44 Calcium 8.5 mg/dL (8.4-10.2) D 12/03/16 04:43 Troponin T 0.058 ng/mL (0.00-0.029) H 12/02/16 07:40 Triglycerides 162 mg/dL (2-149) H 12/02/16 07:40 Cholesterol 187 mg/dL (50-199) 12/02/16 07:40 LDL Cholesterol Direct 94 mg/dL (50-130) 12/02/16 07:40 HDL Cholesterol 61 mg/dL (40-59) H 12/02/16 07:40 Cholesterol/HDL Ratio 3.06 % 12/02/16 07:40
--- NOTE | 2016-12-03 12:53 | Progress Note ---
Assessment and Plan Assessment: Acute systolic heart failure - improved. Nonischemic Cardiomyopathy EF 20-25% - stress test 04/2016 with no significant ischemia, EF 26%. Non-obstructive CAD - per [place] cards note: hx. of [facility] that revealed a 40% LAD lesion (date unknown). ESRD on HD Hypertension Hyperlipidemia Diabetes PVD Anemia Hx. of CVA Plan: Pt to consider AICD placement as OP. Currently stable cardiac status. Cont current medical management. Pt may discharge home from cardiology standpoint. Recommend follow up with primary tire center manager Dr. Whelan within 1-2 weeks of hospital discharge. Assessment and plan reviewed with pt and pt's son at bedside. The patient has been seen in conjunction with Dr. Jessica Richards who agrees with the assessment and plan of care. Subjective Date of service: 12/03/16 Principal diagnosis: dyspnea Interval history: Pt resting comfortably in bed, denies any complaints. VSS. Had bout of hypoglycemia this AM prior to breakfast per pt report. Objective Last Vital Signs Temp 98.8 F 12/03/16 09:28 Pulse 79 12/03/16 10:29 Resp 18 12/03/16 09:28 BP 131/96 12/03/16 10:29 Pulse Ox 94 12/03/16 09:28 - Physical Examination General: Appears Well, No Apparent Distress HEENT: Positive: PERRL, Normocephaly, Mucus Membranes Moist Neck: Positive: neck supple, trachea midline Cardiac: Positive: Reg Rate and Rhythm, S1/S2 Lungs: Positive: Normal Exam, clear to auscultation, Normal Breath Sounds Neuro: Positive: Grossly Intact, Cranial Nerve 2-12 Intact Abdomen: Positive: Unremarkable, Soft, Active Bowel Sounds Skin: Positive: Clear. Negative: Rash, Wound Musculoskeletal: No Fluid Collection, No Pain, Normal Range of Motion Extremities: Present: normal, upper extr. pulses, lower extr. pulses. Absent: edema - Labs and Meds CBC 12/03/16 Range/Units 04:43 WBC 5.8 (4.5-11.0) K/mm3 RBC 3.82 (3.65-5.03) M/mm3 Hgb 10.3 (10.1-14.3) gm/dl Hct 31.3 (30.3-42.9) % Plt Count 176 (140-440) K/mm3 Lymph # 0.8 L (1.2-5.4) K/mm3 [place] # 0.5 (0.0-0.8) K/mm3 Eos # 0.1 (0.0-0.4) K/mm3 Baso # 0.0 (0.0-0.1) K/mm3 Comprehensive Metabolic Panel 12/03/16 Range/Units 04:43 Sodium 143 (137-145) mmol/L Potassium 4.2 (3.6-5.0) mmol/L Chloride 96.9 L (98-107) mmol/L Carbon Dioxide 30 D (22-30) mmol/L BUN 29 H (7-17) mg/dL Creatinine 5.3 H (0.7-1.2) mg/dL Glucose 44 L (65-100) mg/dL Calcium 8.5 D (8.4-10.2) mg/dL - Imaging and Cardiology EKG: report reviewed - Telemetry EKG Rhythm: Sinus Rhythm - EKG Sinus rhythms and dysrhythmias: sinus rhythm
[2016-12-03] MEDS ORDERED: NACL 0.9% 100 ML IV PRN (17:32)
--- NOTE | 2016-12-03 18:27 | Progress Note ---
Assessment and Plan - Patient Problems (1) ESRD (end stage renal disease) on dialysis Current Visit: No Status: Acute Plan to address problem: cardiology notes reviewed. LVEF-20-25%, HD tomorrow. Adjust Target weight (2) Heart palpitations Current Visit: Yes Status: Acute (3) Anemia in chronic kidney disease Current Visit: No Status: Acute (4) HTN (hypertension) Current Visit: No Status: Acute Qualifiers: Hypertension type: H (5) Nonischemic cardiomyopathy Current Visit: No Status: Acute (6) Peripheral vascular disease Current Visit: No Status: Chronic Subjective Date of service: 12/03/16 Principal diagnosis: dyspnea Interval history: alert, oriented, denies palpitations at present time. C/O callus in left foot- wants to see barker peeler Objective - Vital Signs Vital signs: Vital Signs - 12hr 12/03/16 12/03/16 12/03/16 09:28 10:27 10:28 Temperature 98.8 F Pulse Rate 79 79 Pulse Rate [ 76 From Monitor] Respiratory 18 Rate Blood Pressure 131/96 131/96 Blood Pressure 131/96 [Left Arm] O2 Sat by Pulse 94 Oximetry 12/03/16 12/03/16 10:29 17:37 Temperature 98.2 F Pulse Rate 79 Pulse Rate [ 71 From Monitor] Respiratory 16 Rate Blood Pressure 131/96 Blood Pressure 124/61 [Left Arm] O2 Sat by Pulse 100 Oximetry - General Appearance General appearance: well-developed EENT: mucous membranes moist Neck: no JVD Respiratory: Present: Clear to Ascultation Cardiology: irregular Gastrointestinal: normoactive bowel sounds Musculoskeletal: other (no edema) Psychiatric: mood/affect appropriate, cooperative - Lab 12/03/16 04:43 12/03/16 04:43 Most recent lab results Calcium 8.5 mg/dL (8.4-10.2) D 12/03/16 04:43
[2016-12-03] MEDS: ZOCOR PO SCH (21:34)
[2016-12-03] MEDS: LEVEMIR SUB-Q SCH (21:36)
[2016-12-04] MEDS: NOVOLOG SUB-Q SCH ×2 (07:55→12:07)
--- NOTE | 2016-12-04 09:32 | Progress Note ---
Assessment and Plan - Patient Problems (1) ESRD (end stage renal disease) on dialysis Status: Acute Plan to address problem: on HD. Pt to follow up with at her home clinic for dialysis (2) Heart palpitations Status: Acute (3) Anemia in chronic kidney disease Status: Acute (4) HTN (hypertension) Status: Acute Qualifiers: Hypertension type: H (5) Nonischemic cardiomyopathy Status: Acute (6) Peripheral vascular disease Status: Chronic Subjective Date of service: 12/04/16 Principal diagnosis: dyspnea Interval history: pt was seen and examined during dialysis around 10.10 AM. BP-135/71, P-75. Lungs -clear, Heart -irregular, Ext- no edema. Denies CP or palpitations Objective - Vital Signs Vital signs: Vital Signs - 12hr 12/03/16 12/04/16 12/04/16 21:35 00:15 04:25 Temperature 97.9 F 97.8 F Pulse Rate 80 Pulse Rate [ 77 72 From Monitor] Respiratory 20 18 Rate Blood Pressure 130/60 Blood Pressure 137/61 125/58 [Left Arm] O2 Sat by Pulse 100 100 Oximetry 12/04/16 08:00 Temperature 97.7 F Pulse Rate Pulse Rate [ 81 From Monitor] Respiratory 18 Rate Blood Pressure Blood Pressure 142/64 [Left Arm] O2 Sat by Pulse 100 Oximetry - General Appearance General appearance: well-developed EENT: mucous membranes moist Neck: no JVD Respiratory: Present: Clear to Ascultation Cardiology: irregular Gastrointestinal: normoactive bowel sounds Psychiatric: mood/affect appropriate, cooperative - Lab 12/03/16 04:43 12/03/16 04:43 Most recent lab results Calcium 8.5 mg/dL (8.4-10.2) D 12/03/16 04:43
[2016-12-04] MEDS: CALTRATE PLUS PO SCH (09:47)
[2016-12-04] MEDS: BABY ASPIRIN PO SCH (09:47)
--- NOTE | 2016-12-04 13:22 | Discharge Summary ---
Providers - Providers Date of Admission: 12/02/16 09:25 Date of discharge: 12/04/16 Attending physician: KRYSTAL GOMEZ Primary care physician: AREN LIZ MD Hospitalization Condition: Stable Hospital course: The patient is 76 yo woman with a h/o ESRD on HD, htn, SVT, NICMP, CVA, DM, htn who presented with SOB. She admits to hypoglycemia at home. -CP: being evaluated by cardiology -Acute on Chronic HFrEF: diuresis -Hypoglycemia-stat dose of dextrose, d/w nurse -Nonischemic Cardiomyopathy EF 20-25% - stress test 04/2016 with no significant ischemia, EF 26%. -Non-obstructive CAD - per [facility] cards note: hx. of [facility] that revealed a 40% LAD lesion (date unknown). -ESRD on HD -Hypertension -Hyperlipidemia -Diabetes -PVD -Anemia Disposition: DISCHARGED TO HOME OR SELFCARE Time spent for discharge: 35 min Core Measure Documentation - Palliative Care Palliative Care/ Comfort Measures: Not Applicable - Core Measures Any of the following diagnoses?: heart failure - VTE Discharge Requirements Deep Vein Thrombosis/Pulmonary Embolism Present on Admission: No Has pt received <5 days of overlap therapy or INR<2.0: No Anticoagulant overlap therapy prescribed at discharge: No Contraindication No Overlap Therapy order at DC: Not Indicated - Heart Failure Discharge Requirements ANAND/ARB for LVSD if EF <40%: Yes Beta nancy at discharge: Yes Exam - Physical Exam Narrative exam: GEN: WDWN, NAD, AWAKE, ALERT, ORIENTATED x 3 CVS: RRR, NORMAL S1S2 LUNGS/CHEST: CTA B, NORMAL CHEST EXPANSION B, GOOD AIR ENTRY B ABD: SOFT NTND, GBS, NO REBOUND OR GUARDING EXT/SKIN: NO SIGNIFICANT EDEMA OR RASH MSK: FROM X 4 EXTREMITIES NEURO: CN 2-12 GROSSLY INTACT, NO new FOCAL DEFICITS PSY: CALM - Constitutional Vitals: Temp Pulse Resp BP Pulse Ox 98.1 F 77 18 129/59 100 12/04/16 10:05 12/04/16 12:45 12/04/16 10:05 12/04/16 12:45 12/04/16 08:00 Plan Activity: advance as tolerated (no strenous activites until cleared by PCP. ) Diet: renal Follow up with: AREN LIZ MD [Primary Care Provider] - 3-5 Days Prescriptions: Aspirin [Aspirin BABY CHEW TAB] 81 mg PO QDAY #30 tab.chew Carvedilol [Coreg] 12.5 mg PO BID #60 tablet Furosemide [Lasix TAB] 10 mg PO DAILY #30 tablet
[2016-12-04] MEDS ORDERED: NACL 0.9 (PRIMING MACHINE ONLY DIALYSIS) MC ONE (13:56)
[2016-12-04 14:51] VITALS: BP 148/82
[2016-12-04] MEDS: COREG PO SCH (15:06)
[2016-12-04] MEDS: ZESTRIL PO SCH (15:06)
[2016-12-04] MEDS: LASIX PO SCH (15:06)
[2016-12-04] MEDS: NORMODYNE PO SCH (15:06)
[2016-12-04] MEDS: HCTZ PO SCH (15:06)
== END 2016-12-04 15:50 | disposition home or self-care (01) | DRG 291 ==
LOC: ED 07:11 → 4A 09:25
PROVIDERS: ADMIT Hospitalist; ATTEND Internal Medicine
PROC: 5A1D60Z (ICD-10-PCS; principal; 2016-12-04)
DX: I13.2 Hypertensive heart and chronic kidney disease with heart failure and with stage 5 chronic kidney disease, or end stage renal disease (principal); N18.6 End stage renal disease; I50.23 Acute on chronic systolic (congestive) heart failure; I42.9 Cardiomyopathy, unspecified; E11.22 Type 2 diabetes mellitus with diabetic chronic kidney disease; E11.51 Type 2 diabetes mellitus with diabetic peripheral angiopathy without gangrene; E78.5 Hyperlipidemia, unspecified; D63.1 Anemia in chronic kidney disease; I49.9 Cardiac arrhythmia, unspecified; E11.649 Type 2 diabetes mellitus with hypoglycemia without coma; I25.10 Atherosclerotic heart disease of native coronary artery without angina pectoris; Z88.8 Allergy status to other drugs, medicaments and biological substances; Z99.2 Dependence on renal dialysis; Z79.82 Long term (current) use of aspirin; Z79.4 Long term (current) use of insulin; Z86.73 Personal history of transient ischemic attack (TIA), and cerebral infarction without residual deficits; Z89.422 Acquired absence of other left toe(s)
CPT/HCPCS: 36415; 71020; 80048; 80061; 82962; 84484; 85025; 93005; 93010; J1644; J1650; J1815; J1818; J7030

== ENCOUNTER 2017-07-25 08:43 | Inpatient (IN) | payer MEDICARE ==
--- NOTE | 2017-07-25 10:32 | XRay Report ---
AP CHEST: HISTORY: chest pain There is mild cardiomegaly with normal pulmonary vascularity. Vascular stent overlying the right brachiocephalic vein is again noted. The lungs are clear. Bibasilar atelectatic changes have resolved since 12/02/16. The bony structures are demineralized but grossly intact. IMPRESSION: Mild cardiomegaly. Lungs clear.
[2017-07-25 10:54] LABS: Basophils % (Auto) 0.2 % (0.0-1.8); Eosinophils % (Auto) 1.4 % (0.0-4.3); Hematocrit 34.3 % (30.3-42.9); Hemoglobin 10.9 gm/dl (10.1-14.3); Mean Corpuscular HGB Conc 32 % (30-34); Mean Corpuscular Volume 81 fl (79-97); Platelet Count 143 K/mm3 (140-440); Red Blood Count 4.21 M/mm3 (3.65-5.03); Red Cell Distribution Width 17.6 % (13.2-15.2); White Blood Count 5.5 K/mm3 (4.5-11.0)
[2017-07-25 10:55] LABS: Mean Corpuscular Hemoglobin 26 pg (28-32)
--- NOTE | 2017-07-25 11:01 | Emergency Department Report ---
HPI - General Chief Complaint: Chest Pain Time Seen by Provider: 07/25/17 10:11 - HPI HPI: The patient is a 77-year-old female presents for evaluation of chest pain. The patient reports chest pain onset approximately 1 hour prior to arrival, constant since onset, currently mild, 5/10 in severity, pressure-like in quality , improved with nitroglycerin tablet. She shares that her pain began 2 hours into her dialysis session. She typically receives approximately 3.5 hours of dialysis. At onset her pain was severe 9 out of 10. The patient has fever, trauma to the chest, dyspnea, cough, syncope, hemoptysis, unilateral leg swelling, recent immobilization, history of DVT or PE, recent cancer. ED Past Medical Hx - Past Medical History Previous Medical History?: Yes Hx Hypertension: Yes Hx Heart Attack/AMI: No Hx Congestive Heart Failure: No Hx Diabetes: Yes Hx Deep Vein Thrombosis: No Hx Liver Disease: No Hx Renal Disease: Yes (Dialysis ) Hx Sickle Cell Disease: No Hx Arthritis: No Hx Seizures: No Hx Kidney Stones: Yes Hx Asthma: No Hx COPD: No Hx Dementia: No Hx HIV: No Additional medical history: poor circulation left leg, Pulmonary HTN - Surgical History Past Surgical History?: Yes Hx Coronary Stent: No Hx Open Heart Surgery: No Hx Pacemaker: No Hx Internal Defibrillator: No Hx Cholecystectomy: No Hx Appendectomy: No Hx Breast Surgery: No Additional Surgical History: L footamputation of toes; AV Fistula Upper R arm, PAD with lower extremity bypass - Social History Smoking Status: Never Smoker Substance Use Type: None - Medications Home Medications: Home Medications Medication Instructions Recorded Confirmed Last Taken Type Aspirin [Aspirin BABY CHEW TAB] 81 mg PO QDAY #30 tab.chew 12/04/16 Unknown Rx Calcium Carb/Vit D3/Minerals 1 each PO BID #30 tablet 12/04/16 Unknown Rx [Caltrate Plus] Lisinopril/Hydrochlorothiazide 0.5 tab PO BID #30 12/04/16 12/02/16 Unknown Rx [Zestoretic 20-12.5 mg] Simvastatin [Zocor TAB] 10 mg PO QHS #30 12/04/16 12/02/16 Unknown Rx ED Review of Systems ROS: Stated complaint: CHEST PAIN Other details as noted in HPI Constitutional: denies: fever ENT: denies: throat or neck pain Respiratory: denies: cough, shortness of breath Cardiovascular: reports: chest pain Endocrine: denies unexplained weight loss or gain Gastrointestinal: denies: abdominal pain, nausea Genitourinary: denies: dysuria Musculoskeletal: denies: leg swelling Skin: denies: rash Neurological: denies: headache Hematological/Lymphatic: denies: easy bleeding or easy bruising Psych: denies sadness or hopelessness Physical Exam - Physical Exam Vital Signs: Vital Signs 07/25/17 07/25/17 07/25/17 09:05 09:53 09:54 Temperature 98.6 F Pulse Rate 94 H 99 H Respiratory 14 16 Rate Blood Pressure 159/85 O2 Sat by Pulse 100 100 Oximetry Physical Exam: General: well-nourished, well-developed, no acute distress Head: Normocephalic, atraumatic Eyes: normal sclera ENT: Mucous membranes are pink and moist Neck: trachea midline, neck supple, No neck stiffness, no cervical adenopathy Respiratory: Breath sounds equal bilaterally, no wheezing, rales, or rhonchi Cardio: S1 and S2 present, no murmurs, rubs, gallops, capillary refill is brisk Abdomen: Normoactive bowel sounds, soft abdomen, no rigidity, no guarding or rebound tenderness Chest WALL/Back: No tenderness to palpation of the chest wall, no CVA tenderness with percussion Musc: No pitting edema Skin: No rash Neuro: no facial drooping, normal speech Psych: Normal affect ED Course Vital Signs 07/25/17 07/25/17 07/25/17 09:05 09:53 09:54 Temperature 98.6 F Pulse Rate 94 H 99 H Respiratory 14 16 Rate Blood Pressure 159/85 O2 Sat by Pulse 100 100 Oximetry ED Medical Decision Making - Lab Data Result diagrams: 07/25/17 09:59 07/25/17 09:59 - Medical Decision Making The patient was seen and examined by myself. The patient is placed on a cardiac/vascular sonographer and continuous pulse ox. On initial evaluation, the patient was found to be in no distress. EKG was negative for findings suggestive of acute cardiac infarct. The patient is given an aspirin, a nitroglycerin tablet, and a tablet of Tylenol for her pain. Labs and imaging are obtained. Chest x-ray is negative for pneumothorax, focal consolidation, pulmonary vascular congestion , pleural effusion, or other obvious acute cardiopulmonary disease process. Lab results revealed elevated creatinine level, consistent with known history of end-stage renal disease, and mildly elevated troponin of .045, at patient baseline on previous evals, and otherwise labs were non-revealing including WBC , hemoglobin, hematocrit. The patient was reevaluated and reported that their symptoms were improved. As the patient has chest pain and risk factors for development of acute coronary event, the patient will be admitted for close cardiopulmonary monitoring, serial troponins, and evaluation by cardiology. The physician on-call was contacted. They presented to the emergency department and evaluated the patient. They agreed to admit the patient. The ED admit order was placed. The patient was admitted in guarded condition. Critical care attestation.: If time is entered above; I have spent that time in minutes in the direct care of this critically ill patient, excluding procedure time. ED Disposition Clinical Impression: ESRD (end stage renal disease) on dialysis, Acute chest pain Disposition: OP ADMIT IP TO THIS HOSP Is pt being admited?: Yes Does the pt Need Aspirin: Yes (given) Condition: Undetermined Instructions: Chest Pain (ED) Referrals: PRIMARY CARE, [Primary Care Provider] - 3-5 Days Time of Disposition: 10:59
[2017-07-25 11:08] LABS: Calcium 9.2 mg/dL (8.4-10.2); Chloride 95.3 mmol/L (98-107); Potassium 3.6 mmol/L (3.6-5.0)
[2017-07-25] MEDS: BABY ASPIRIN PO ONE ×2 (13:22→13:44)
[2017-07-25] MEDS: TYLENOL PO ONE ×2 (13:22→13:43)
[2017-07-25] MEDS: NITROSTAT SL ONE ×2 (13:22→13:44)
[2017-07-25] MEDS ORDERED: TYLENOL ONE (13:28)
[2017-07-25] MEDS ORDERED: BABY ASPIRIN ONE (13:28)
[2017-07-25] MEDS ORDERED: NITROSTAT SL ONE (13:28)
--- NOTE | 2017-07-25 21:30 | History and Physical Report ---
History of Present Illness Date of examination: 07/25/17 Date of admission: 07/25/17 13:27 Chief complaint: Chest pain 1 hr History of present illness: See dictated H and P in reports Medications and Allergies Allergies Allergy/AdvReac Type Severity Reaction Status Date / Time phenytoin sodium Allergy Anaphylaxis Verified 05/08/16 07:07 [From Dilantin] phenytoin sodium extended Allergy Anaphylaxis Verified 05/08/16 07:07 [From Dilantin] Home Medications Medication Instructions Recorded Confirmed Last Taken Type Aspirin [Aspirin BABY CHEW TAB] 81 mg PO QDAY #30 tab.chew 12/04/16 07/25/17 Unknown Rx Calcium Carb/Vit D3/Minerals 1 each PO BID #30 tablet 12/04/16 07/25/17 Rx [Caltrate Plus] Lisinopril/Hydrochlorothiazide 0.5 tab PO BID #30 12/04/16 07/25/17 07/25/17 Rx [Zestoretic 20-12.5 mg] Simvastatin [Zocor TAB] 10 mg PO QHS #30 12/04/16 07/25/17 07/25/17 Rx Exam - Constitutional Vitals: Temp Pulse Resp BP Pulse Ox 98.3 F 89 18 136/72 98 07/25/17 19:12 07/25/17 19:12 07/25/17 19:12 07/25/17 19:12 07/25/17 19:12 Results - Labs CBC & Chem 7: 07/26/17 05:51 07/26/17 05:51 Labs: Laboratory Last Values WBC 5.5 K/mm3 (4.5-11.0) 07/25/17 09:59 RBC 4.21 M/mm3 (3.65-5.03) 07/25/17 09:59 Hgb 10.9 gm/dl (10.1-14.3) 07/25/17 09:59 Hct 34.3 % (30.3-42.9) 07/25/17 09:59 MCV 81 fl (79-97) 07/25/17 09:59 MCH 26 pg (28-32) L 07/25/17 09:59 MCHC 32 % (30-34) 07/25/17 09:59 RDW 17.6 % (13.2-15.2) H 07/25/17 09:59 Plt Count 143 K/mm3 (140-440) 07/25/17 09:59 Lymph % (Auto) 9.9 % (13.4-35.0) L 07/25/17 09:59 [place] % (Auto) 8.8 % (0.0-7.3) H 07/25/17 09:59 Eos % (Auto) 1.4 % (0.0-4.3) 07/25/17 09:59 Baso % (Auto) 0.2 % (0.0-1.8) 07/25/17 09:59 Lymph # 0.5 K/mm3 (1.2-5.4) L 07/25/17 09:59 [place] # 0.5 K/mm3 (0.0-0.8) 07/25/17 09:59 Eos # 0.1 K/mm3 (0.0-0.4) 07/25/17 09:59 Baso # 0.0 K/mm3 (0.0-0.1) 07/25/17 09:59 Seg Neutrophils % 79.7 % (40.0-70.0) H 07/25/17 09:59 Seg Neutrophils # 4.4 K/mm3 (1.8-7.7) 07/25/17 09:59 Sodium 141 mmol/L (137-145) 07/25/17 09:59 Potassium 3.6 mmol/L (3.6-5.0) 07/25/17 09:59 Chloride 95.3 mmol/L (98-107) L 07/25/17 09:59 Carbon Dioxide 29 mmol/L (22-30) 07/25/17 09:59 Anion Gap 20 mmol/L 07/25/17 09:59 BUN 13 mg/dL (7-17) 07/25/17 09:59 Creatinine 3.3 mg/dL (0.7-1.2) H 07/25/17 09:59 Estimated GFR 16 ml/min 07/25/17 09:59 BUN/Creatinine Ratio 4 % 07/25/17 09:59 Glucose 82 mg/dL (65-100) 07/25/17 09:59 POC Glucose 192 (70-105) H 07/25/17 14:34 Calcium 9.2 mg/dL (8.4-10.2) 07/25/17 09:59 Troponin T 0.048 ng/mL (0.00-0.029) H 07/25/17 19:02 Triglycerides 140 mg/dL (2-149) 07/25/17 09:59 Cholesterol 212 mg/dL (50-199) H 07/25/17 09:59 LDL Cholesterol Direct 111 mg/dL (50-130) 07/25/17 09:59 HDL Cholesterol 73 mg/dL (40-59) H 07/25/17 09:59 Cholesterol/HDL Ratio 2.90 % 07/25/17 09:59
[2017-07-25] MEDS ORDERED: MORPHINE IV PRN (21:32)
[2017-07-25] MEDS ORDERED: TYLENOL PO PRN (21:32)
[2017-07-25] MEDS ORDERED: DULCOLAX PR PRN (21:32)
[2017-07-25] MEDS ORDERED: MILK OF MAGNESIA PO PRN (21:32)
[2017-07-25] MEDS ORDERED: ZOFRAN IV PRN (21:32)
[2017-07-25] MEDS ORDERED: PRAVACHOL PO SCH (22:00)
[2017-07-25] MEDS ORDERED: HYDROCHLOROTHIAZIDE PO SCH (22:00)
[2017-07-25] MEDS ORDERED: LISINOPRIL PO SCH (22:00)
[2017-07-25 22:33] LABS: Creatine Kinase 34 units/L (30-135)
[2017-07-25 22:34] LABS: Creatine Kinase MB < 1.0 ng/mL (0.0-4.0)
[2017-07-25] MEDS: PEPCID PO SCH (22:40)
[2017-07-25] MEDS: CALTRATE PLUS PO SCH (22:41)
[2017-07-25] MEDS: BABY ASPIRIN PO SCH (22:41)
[2017-07-25] MEDS: HCTZ PO SCH ×2 (22:41→22:43)
[2017-07-25] MEDS: ZESTRIL PO SCH (22:41)
[2017-07-26] MEDS: PERCOCET 5/325 PO PRN ×2 (05:35→16:00)
[2017-07-26 06:39] LABS: Basophils % (Auto) 0.2 % (0.0-1.8); Eosinophils % (Auto) 1.1 % (0.0-4.3); Hematocrit 32.9 % (30.3-42.9); Hemoglobin 10.5 gm/dl (10.1-14.3); Mean Corpuscular HGB Conc 32 % (30-34); Mean Corpuscular Hemoglobin 26 pg (28-32); Mean Corpuscular Volume 82 fl (79-97); Platelet Count 151 K/mm3 (140-440); Red Blood Count 4.01 M/mm3 (3.65-5.03); Red Cell Distribution Width 17.3 % (13.2-15.2); White Blood Count 4.6 K/mm3 (4.5-11.0)
[2017-07-26 06:54] LABS: Creatine Kinase 34 units/L (30-135); Creatine Kinase MB < 1.0 ng/mL (0.0-4.0)
[2017-07-26 07:20] LABS: Albumin 3.7 g/dL (3.9-5); Albumin/Globulin Ratio 1.2 %; Alkaline Phosphatase 73 units/L (35-129); Anion Gap 20 mmol/L; BUN/Creatinine Ratio 5; Blood Urea Nitrogen 25 mg/dL (7-17); Calcium 8.9 mg/dL (8.4-10.2); Carbon Dioxide 28 mmol/L (22-30); Chloride 97.5 mmol/L (98-107); Glucose 112 mg/dL (65-100); Potassium 3.9 mmol/L (3.6-5.0); Sodium 142 mmol/L (137-145); Total Protein 6.7 g/dL (6.3-8.2)
[2017-07-26 07:32] LABS: Alanine Aminotransferase < 5 units/L (7-56)
[2017-07-26] MEDS ORDERED: LEXISCAN IV ONE ×2 (08:01→08:08)
--- NOTE | 2017-07-26 08:05 | History and Physical Report ---
CHIEF COMPLAINT: Chest pain. HISTORY OF PRESENT ILLNESS: A 77-year-old -[place] female who presents with left-sided chest pain one hour prior to arrival. Constant and pressure like quality. Intensity is dull and 5 over scale of 1-10. Initially, the pain was 9/10, it has come down to 5/1-10. The patient had chest pain workup in the past. No syncope, no seizures. No shortness of breath, no diaphoresis. No exacerbating or relieving factors. No radiation. PAST MEDICAL HISTORY: Significant for end-stage renal disease, on dialysis on Thursday, , Thursday; hypertension; type 2 diabetes; kidney stones; poor circulation in the left leg; and pulmonary hypertension. SURGICAL HISTORY: Left foot amputation of toes; AV fistula, right upper extremity; peripheral artery disease; lower extremity with bypass. SOCIAL HISTORY: Does not smoke. No alcohol, no recreational drugs. FAMILY HISTORY: Significant for hypertension. CURRENT MEDICATIONS: Lisinopril 20 mg once a day, hydrochlorothiazide 12.5 once a day, Caltrate Plus one tablet twice a day, simvastatin 10 mg p.o. at bedtime, and aspirin 81 mg p.o. daily. REVIEW OF SYSTEMS: Significant for left-sided chest pain with no radiation and no shortness of breath. A 14-point review of systems done, otherwise negative. PHYSICAL EXAMINATION: GENERAL: Elderly female, cooperative during the examination. VITAL SIGNS: Blood pressure 159/85, temperature 98.6, pulse is 94, respirations are 14. HEENT: Unremarkable. Pupils equal and reactive. NECK: Supple, no lymphadenopathy, no thyromegaly. LUNGS: Clear to auscultation and percussion. Good air entry. CARDIOVASCULAR: S1, S2 heard. No gallop, no murmur, no rub. Apical impulse in left fifth intercostal space and midclavicular line. ABDOMEN: Soft and benign. No hepatosplenomegaly. No guarding, no rigidity. Hernial orifices are normal. EXTREMITIES: Good pedal pulses. No pedal edema. CENTRAL NERVOUS SYSTEM: Alert and oriented x 4, nonfocal exam. LABORATORY DATA: Significant for a BUN and creatinine of 13 and 3.3, hemoglobin is 10.9, hematocrit is 34.3. EKG, normal sinus rhythm. Troponin is 0.045 and 0.048. Cholesterol is slightly high at 212. ASSESSMENT AND PLAN: 1. Chest pain, rule out myocardial infarction, chest pain protocol. The patient to get Lexiscan. 2. End-stage renal disease, on dialysis. Nephrology consulted for possible dialysis. The patient is due for dialysis on Thursday, Thursday, and Thursday. Not due until Thursday. 3. Hypertension. Continue lisinopril and hydrochlorothiazide. 4. Hyperlipidemia. Continue simvastatin. 5. Peripheral artery disease, not on any medications at this point. 6. Deep venous thrombosis prophylaxis, heparin 5000 q.12h. DISCHARGE PLANNING ISSUES: The patient may be discharged if the Lexiscan is negative. JOB# [id number] EWA/RU
[2017-07-26] MEDS ORDERED: HEPARIN SUB-Q SCH (10:00)
[2017-07-26] MEDS ORDERED: NOVOLOG SUB-Q SCH (11:30)
[2017-07-26] MEDS: BABY ASPIRIN PO SCH (11:42)
[2017-07-26] MEDS: CALTRATE PLUS PO SCH (11:43)
[2017-07-26] MEDS: PEPCID PO SCH (11:44)
[2017-07-26] MEDS: HCTZ PO SCH (11:49)
[2017-07-26] MEDS: ZESTRIL PO SCH (12:01)
[2017-07-26 12:17] LABS: Creatine Kinase MB 1.2 ng/mL (0.0-4.0)
--- NOTE | 2017-07-26 12:49 | Consultation ---
History of Present Illness - Reason for Consult Consult date: 07/26/17 end stage renal disease Requesting physician: SANDRA MORALES - History of Present Illness The patient is a 77-year-old female presents for evaluation of chest pain. The patient reports chest pain onset approximately 1 hour prior to arrival, constant since onset, currently mild, 5/10 in severity, pressure-like in quality , improved with nitroglycerin tablet. She shares that her pain began 2 hours into her dialysis session. She typically receives approximately 3.5 hours of dialysis. At onset her pain was severe 9 out of 10. The patient has fever, trauma to the chest, dyspnea, cough, syncope, hemoptysis, unilateral leg swelling, recent immobilization, history of DVT or PE, recent cancer She undergoes hemodialysis at [facility] under the care of Dr. Michelle Duffy Past History Past Medical History: diabetes, dialysis, hypertension Past Surgical History: Other (history of creation of AV fistula. Left transmetatarsal amputation) Social history: other (denies smoking or drinking) Family history: no significant family history (not significant for kidney disease) Medications and Allergies Allergies Allergy/AdvReac Type Severity Reaction Status Date / Time phenytoin sodium Allergy Anaphylaxis Verified 05/08/16 07:07 [From Dilantin] phenytoin sodium extended Allergy Anaphylaxis Verified 05/08/16 07:07 [From Dilantin] Home Medications Medication Instructions Recorded Confirmed Last Taken Type Aspirin [Aspirin BABY CHEW TAB] 81 mg PO QDAY #30 tab.chew 12/04/16 07/25/17 Unknown Rx Calcium Carb/Vit D3/Minerals 1 each PO BID #30 tablet 12/04/16 07/25/17 Rx [Caltrate Plus] Lisinopril/Hydrochlorothiazide 0.5 tab PO BID #30 12/04/16 07/25/17 07/25/17 Rx [Zestoretic 20-12.5 mg] Simvastatin [Zocor TAB] 10 mg PO QHS #30 12/04/16 07/25/17 07/25/17 Rx Active Meds: Active Medications Acetaminophen (Tylenol) 650 mg PO Q4H PRN PRN Reason: Pain MILD(1-3)/Fever >100.5/KEE Last Admin: 07/26/17 03:22 Dose: 650 mg Aspirin (Baby Aspirin) 81 mg PO QDAY [facility] Last Admin: 07/26/17 11:42 Dose: 81 mg Bisacodyl (Dulcolax) 10 mg [place] QDAY PRN PRN Reason: Constipation unrelieved by MOM Famotidine (Pepcid) 20 mg PO QAM [facility] Last Admin: 07/26/17 11:44 Dose: Not Given Heparin Sodium (Porcine) (Heparin) 5,000 unit SUB-Q Q12HR [facility] Last Admin: 07/26/17 12:02 Dose: 5,000 unit Hydrochlorothiazide (Hctz) 6.25 mg PO BID [facility] Last Admin: 07/26/17 11:49 Dose: Not Given Insulin Aspart (Novolog) 0 units SUB-Q ACHS [facility] PRN Reason: Protocol Lisinopril (Zestril) 10 mg PO BID [facility] Last Admin: 07/26/17 12:01 Dose: 10 mg Magnesium Hydroxide (Milk Of Magnesia) 30 ml PO Q4H PRN PRN Reason: Constipation Morphine Sulfate (Morphine) 2 mg IV Q4H PRN PRN Reason: Pain, Moderate (4-6) Multivitamins/Minerals (Caltrate Plus) 1 each PO BID [facility] Last Admin: 07/26/17 11:43 Dose: 1 each Ondansetron HCl (Zofran) 4 mg IV Q8H PRN PRN Reason: N/V unrelieved by Reglan Oxycodone/Acetaminophen (Percocet 5/325) 1 tab PO Q6H PRN PRN Reason: Pain, Moderate (4-6) Last Admin: 07/26/17 05:35 Dose: 1 tab Pravastatin Sodium (Pravachol) 20 mg PO QHS [facility] Last Admin: 07/25/17 23:30 Dose: 20 mg Review of Systems All systems: negative (negative except for noted above) Exam - Vital Signs Vital signs: Vital Signs Temp Pulse Resp BP Pulse Ox 98.6 F 94 H 14 159/85 100 07/25/17 09:05 07/25/17 09:05 07/25/17 09:05 07/25/17 09:05 07/25/17 09:05 - General Appearance General appearance: well-developed, well-nourished, appears stated age EENT: PERRL, mucous membranes moist Neck: Present: neck supple, trachea midline. Absent: JVD/HJR, Masses Respiratory: Clear to Ascultation Heart: regular, normal heart rate, S1S2, no murmurs Gastrointestinal: Present: normal, normoactive bowel sounds Integumentary: no rash, other (left transmetatarsal amputation. AV fistula in her right upper arm. Good bruit and thrill) Results - Lab Results 07/26/17 05:51 07/26/17 05:51 Most recent lab results Calcium 8.9 mg/dL (8.4-10.2) 07/26/17 05:51 Assessment and Plan Impression * End-stage renal disease and maintenance hemodialysis * Chest pain * Hypertension * Diabetes * Hyperlipidemia * Anemia * Peripheral vascular disease Recommendations * Patient's volume status and electrolytes are acceptable. No urgent indication for dialysis today * Shall check her labs again tomorrow and decide if she can wait till Thursday for her regular scheduled treatment * Chest pain workup as per primary care team * Adjust diet and meds for ESRD state * No IV, BP of any puncture in her access arm * Procrit with dialysis * Binders with diet * Thank you very much for the consultation. Shall follow along with you
--- NOTE | 2017-07-26 16:09 | Discharge Summary ---
Providers - Providers Date of Admission: 07/25/17 13:27 Date of discharge: 07/26/17 Attending physician: KEITH CLARK 07/26/17 07:38 Consult to Physician [CONS] Routine Consulting Provider: RAMÓN NICHOLAS Reason For Exam: esrd Place consult to:: renal Notified:: a service Phone number called:: [phone] Was contact made?: Yes Time called:: 09:15 Primary care physician: [employer] Hospitalization Condition: Fair Hospital course: Patient is 77 yo with diabetes, ESRD on dialysis. She presented with chest pain. Her initial Troponin was normal. She was then admitted to rule out acute coronary syndrome. Stress test done ext day read as fixed defect. By then chest pain had resolved. She was then discharged home to follow with Cardiology in few days. Disposition: TO HOME OR SELFCARE - Discharge Diagnoses (1) ESRD (end stage renal disease) on dialysis Status: Chronic (2) HTN (hypertension) Status: Chronic Qualifiers: Hypertension type: essential hypertension Qualified Code(s): I10 - Essential (primary) hypertension (3) Elevated troponin Status: Acute (4) Chronic CHF (congestive heart failure) Status: Chronic Qualifiers: Congestive heart failure type: systolic Qualified Code(s): I50.22 - Chronic systolic (congestive) heart failure Core Measure Documentation - Palliative Care Palliative Care/ Comfort Measures: Not Applicable - Core Measures Any of the following diagnoses?: heart failure - Heart Failure Discharge Requirements ANAND/ARB for LVSD if EF <40%: Yes Beta nancy at discharge: Yes Exam - Constitutional Vitals: Temp Pulse Resp BP Pulse Ox 97.4 F L 83 18 128/108 95 07/26/17 13:33 07/26/17 13:33 07/26/17 16:00 07/26/17 13:33 07/26/17 13:33 General appearance: Present: no acute distress - Neck Neck: Present: supple - Respiratory Respiratory: bilateral: CTA - Cardiovascular Heart Sounds: Present: S1 & S2 - Extremities Extremities: No edema - Abdominal General gastrointestinal: Present: soft, normal bowel sounds - Neurologic Neurologic: moves all extremities Plan Activity: no restrictions Diet: low fat, low cholesterol, low salt, renal Additional Instructions: 1.Follow up with PCP in 1 week. 2.Follow up with Dr. Meet Richards, j2ee application developer in 1-2 days in office. 3.Continue routine hemodialysis Follow up with: PRIMARY CARE, [Primary Care Provider] - 3-5 Days Prescriptions: Aspirin EC [Aspirin Enteric Coated TAB] 81 mg PO QDAY #30 tablet. Carvedilol [Coreg] 3.125 mg PO BID #60 tablet Famotidine [Pepcid] 20 mg PO QAM #30 tablet
[2017-07-26 18:27] VITALS: BP 141/63
--- NOTE | 2017-07-26 19:40 | Treadmill Report ---
THALLIUM STRESS TEST REPORT LEFT VENTRICLE: Moderately dilated. There is a moderate to large, partially transient inferior defect. On the resting study, there is mild to moderate reversibility. Gated analysis demonstrates severe left ventricular systolic dysfunction with ejection fraction 24%. CONCLUSION: Abnormal perfusion study with a dilated cardiomyopathy and evidence of possible inferior ischemia. Clinical correlation is recommended and further cardiac evaluation is recommended. JOB# [id number] CA/NTS
--- NOTE | 2017-07-30 17:05 | Query- Chest Pain ---
Michelle Carlisle Red Date: 07/30/17 Airplane Dispatch Clerk/CDS: Kim / Elbert Phone#: [phone] Exercise your independent professional judgment when responding to query. Questions asked do not imply a particular answer is desired or expected. We greatly appreciate your clarification on this issue. Clinical Documentation States: 77 year old female was admitted on 07/25/17 The H&P (Dr. Verde) states " Chief complaint: Chest pain 1. Chest pain, rule out myocardial infarction, chest pain protocol. The patient to get lexiscan" Treadmill report states " Abnormal perfusion scan with a dilated cardiomyopathy and evidence of possible inferior ischemia. " Please document the etiology of Chest Pain: [ ] Myocardial Infarction [ ] Pneumonia [ ] Mediastinitis [ ] Costochondritis [ ] Pulmonary Embolism [ ] Coronary Artery Disease [x] GERD [ ] Other: [ ] Comment/Explanation: Present on Admission: [x] Yes (Y) [ ] Clinically undeterminable (W) [ ] No(N) Please document response in your Progress Notes and/or Discharge Summary and indicate if the condition was present on admission. [place]
== END 2017-07-26 18:59 | disposition home or self-care (01) | DRG 391 ==
LOC: ED 08:43 → 4A 13:27
PROVIDERS: ADMIT Internal Medicine; ATTEND Internal Medicine
DX: K21.9 Gastro-esophageal reflux disease without esophagitis (principal); N18.6 End stage renal disease; I12.0 Hypertensive chronic kidney disease with stage 5 chronic kidney disease or end stage renal disease; R07.9 Chest pain, unspecified; E11.22 Type 2 diabetes mellitus with diabetic chronic kidney disease; E11.51 Type 2 diabetes mellitus with diabetic peripheral angiopathy without gangrene; E78.5 Hyperlipidemia, unspecified; D64.9 Anemia, unspecified; Z86.718 Personal history of other venous thrombosis and embolism; Z86.711 Personal history of pulmonary embolism; Z85.9 Personal history of malignant neoplasm, unspecified; Z87.442 Personal history of urinary calculi; Z89.422 Acquired absence of other left toe(s); Z79.82 Long term (current) use of aspirin; Z79.899 Other long term (current) drug therapy; Z82.49 Family history of ischemic heart disease and other diseases of the circulatory system; Z99.2 Dependence on renal dialysis
CPT/HCPCS: 36415; 71010; 78452; 80048; 80053; 80061; 82550; 82553; 82962; 83036; 84484; 85025; 93005; 93010; 93017; A9270-GY; A9502; J1644; J2785

== ENCOUNTER 2017-09-02 17:40 | Emergency (ER) | payer MEDICARE ==
[2017-09-02 17:52] VITALS: BP 159/92
[2017-09-02 18:54] LABS: Basophils % (Auto) 0.6 % (0.0-1.8); Eosinophils # (Auto) 0.1 K/mm3 (0.0-0.4); Eosinophils % (Auto) 3.4 % (0.0-4.3); Hematocrit 37.6 % (30.3-42.9); Hemoglobin 12.1 gm/dl (10.1-14.3); Lymphocytes # (Auto) 0.7 K/mm3 (1.2-5.4); Lymphocytes % (Auto) 16.2 % (13.4-35.0); Mean Corpuscular HGB Conc 32 % (30-34); Mean Corpuscular Hemoglobin 26 pg (28-32); Mean Corpuscular Volume 82 fl (79-97); Monocytes # (Auto) 0.3 K/mm3 (0.0-0.8); Monocytes % (Auto) 7.7 % (0.0-7.3); Platelet Count 147 K/mm3 (140-440); Red Blood Count 4.58 M/mm3 (3.65-5.03); Red Cell Distribution Width 17.7 % (13.2-15.2)
[2017-09-02 19:04] LABS: INR 0.95 (0.87-1.13)
[2017-09-02 19:05] LABS: Partial Thromboplastin Time 36.6 Sec. (24.2-36.6)
[2017-09-02 19:09] LABS: Calcium 8.2 mg/dL (8.4-10.2)
[2017-09-02] MEDS ORDERED: BACTRIM DS PO ONE (21:47)
[2017-09-02] MEDS ORDERED: KIONEX PO ONE (21:57)
[2017-09-02] MEDS ORDERED: CLEOCIN PO ONE (21:57)
--- NOTE | 2017-09-02 22:22 | Emergency Department Report ---
ED Lower Extremity HPI - General Chief Complaint: Extremity Injury, Lower Stated Complaint: COMING TO GET FOOT LOOKED AT Time Seen by Provider: 09/02/17 21:16 Source: patient, family Mode of arrival: Ambulatory Limitations: Physical Limitation - History of Present Illness Initial Comments: 77-year-old female with a past medical history of CHF, diabetes, hypertension, end-stage renal disease on dialysis, PAD to the left lower extremity resulting in amputation of toes and bypass surgery to the left lower extremity presents to the hospital with opening of chronic. Patient sees Dr. Vivas police chief deputy for foot care. She's had a chronic ulcer to the sole of the foot. She noticed yesterday that it felt like it was opened up. Patient has chronic poor sensation to her feet and has chronic neuropathic pain 4/10 in intensity. She denies fever, drainage, warmth or swelling. She last saw the police chief deputy in July so antibiotics were prescribed but overall her wound healing is good. Her next scheduled follow-up isn't until October. Patient is due for dialysis again today and tomorrow and has been compliant. [employer] Arc: Dr. Michelle Duffy - Related Data Previous Rx's Medication Instructions Recorded Last Taken Type Calcium Carb/Vit D3/Minerals 1 each PO BID #30 tablet 12/04/16 07/25/17 Rx [Caltrate Plus] Lisinopril/Hydrochlorothiazide 0.5 tab PO BID #30 12/04/16 07/25/17 Rx [Zestoretic 20-12.5 mg] Simvastatin [Zocor TAB] 10 mg PO QHS #30 12/04/16 07/25/17 Rx Aspirin EC [Aspirin Enteric Coated 81 mg PO QDAY #30 tablet. 07/26/17 Unknown Rx TAB] Carvedilol [Coreg] 3.125 mg PO BID #60 tablet 07/26/17 Unknown Rx Famotidine [Pepcid] 20 mg PO QAM #30 tablet 07/26/17 Unknown Rx Clindamycin [Clindamycin CAP] 450 mg PO Q8HR 7 Days capsule 09/02/17 Unknown Rx Allergies Allergy/AdvReac Type Severity Reaction Status Date / Time phenytoin sodium Allergy Anaphylaxis Verified 05/08/16 07:07 [From Dilantin] phenytoin sodium extended Allergy Anaphylaxis Verified 05/08/16 07:07 [From Dilantin] ED Review of Systems ROS: Stated complaint: COMING TO GET FOOT LOOKED AT Other details as noted in HPI Comment: All other systems reviewed and negative Other: Constitutional: No fevers chills Eyes: No eye pain visual changes ENT: No ear pain or throat pain Neck: Denies pain Respiratory: Denies cough wheezing shortness of breath Cardiovascular: Denies chest pain, palpitations, syncope GI: Denies abdominal pain, nausea, vomiting, diarrhea : Denies dysuria Musculoskeletal: Denies back pain, joint swelling Skin: As per HPI Neurologic: Denies headache, numbness, weakness Psychiatric: Denies suicidal ideation, hallucinations ED Past Medical Hx - Past Medical History Previous Medical History?: Yes Hx Hypertension: Yes Hx Heart Attack/AMI: No Hx Congestive Heart Failure: Yes Hx Diabetes: Yes Hx Deep Vein Thrombosis: No Hx Liver Disease: No Hx Renal Disease: Yes (Dialysis ) Hx Sickle Cell Disease: No Hx Arthritis: No Hx Seizures: No Hx Kidney Stones: Yes Hx Asthma: No Hx COPD: No Hx Dementia: No Hx HIV: No Additional medical history: poor circulation left leg, Pulmonary HTN - Surgical History Past Surgical History?: Yes Hx Coronary Stent: No Hx Open Heart Surgery: No Hx Pacemaker: No Hx Internal Defibrillator: No Hx Cholecystectomy: No Hx Appendectomy: No Hx Breast Surgery: No Additional Surgical History: L foot amputation of toes; AV Fistula Upper R arm, PAD with lower extremity bypass - Social History Smoking Status: Never Smoker Substance Use Type: Prescribed - Medications Home Medications: Home Medications Medication Instructions Recorded Confirmed Last Taken Type Calcium Carb/Vit D3/Minerals 1 each PO BID #30 tablet 12/04/16 07/25/17 Rx [Caltrate Plus] Lisinopril/Hydrochlorothiazide 0.5 tab PO BID #30 12/04/16 07/25/17 07/25/17 Rx [Zestoretic 20-12.5 mg] Simvastatin [Zocor TAB] 10 mg PO QHS #30 12/04/16 07/25/17 07/25/17 Rx Aspirin EC [Aspirin Enteric Coated 81 mg PO QDAY #30 tablet. 07/26/17 Unknown Rx TAB] Carvedilol [Coreg] 3.125 mg PO BID #60 tablet 07/26/17 Unknown Rx Famotidine [Pepcid] 20 mg PO QAM #30 tablet 07/26/17 Unknown Rx Clindamycin [Clindamycin CAP] 450 mg PO Q8HR 7 Days capsule 09/02/17 Unknown Rx ED Physical Exam - General Limitations: Physical Limitation - Other Other exam information: General: No limitations, patient is alert in no acute distress Head exam: Atraumatic, normocephalic Eyes exam: Normal appearance, ENT: Moist mucous membrane, normal oropharynx Neck exam: Normal inspection, full range of motion, no meningismus nontender Respiratory exam: Clear to auscultation bilateral, no wheezes, rales, crackles Cardiovascular: Normal rate and rhythm, normal heart sounds Abdomen: Soft, nondistended, and nontender, with normal bowel sounds, no rebound, or guarding Extremity: Full range of motion normal inspection no deformity Back: Normal Inspection, full range of motion, no tenderness Neurologic: Alert, oriented x3, cranial nerves intact, no motor or sensory deficit Psychiatric: normal affect, normal mood Skin: Ulcer to the sole of midfoot that is approximately 2 cm and slightly open with drainage, warmth, erythema, or edema ED Course Vital Signs 09/02/17 09/02/17 17:46 20:09 Temperature 97.4 F L Pulse Rate 97 H Respiratory 18 20 Rate Blood Pressure 159/92 O2 Sat by Pulse 100 Oximetry - Reevaluation(s) Reevaluation #1: 09/02/17 23:15 pt stable - Consultations Consultation #1: 09/02/17 22:[address] Carranza grease monkey fitness manager. Recommend Kayexalate and follow with dialysis scheduled tomorrow. Prefers clindamycin over Bactrim for infection ED Lower Extremity MDM - Lab Data Result diagrams: 09/02/17 18:23 09/02/17 18:23 Lab Results 09/02/17 09/02/17 09/02/17 Range/Units 17:57 18:23 18:23 WBC 4.3 L (4.5-11.0) K/mm3 RBC 4.58 (3.65-5.03) M/mm3 Hgb 12.1 (10.1-14.3) gm/dl Hct 37.6 (30.3-42.9) % MCV 82 (79-97) fl MCH 26 L (28-32) pg MCHC 32 (30-34) % RDW 17.7 H (13.2-15.2) % Plt Count 147 (140-440) K/mm3 Lymph % (Auto) 16.2 (13.4-35.0) % Vance % (Auto) 7.7 H (0.0-7.3) % Eos % (Auto) 3.4 (0.0-4.3) % Baso % (Auto) 0.6 (0.0-1.8) % Lymph # 0.7 L (1.2-5.4) K/mm3 Vance # 0.3 (0.0-0.8) K/mm3 Eos # 0.1 (0.0-0.4) K/mm3 Baso # 0.0 (0.0-0.1) K/mm3 Seg Neutrophils % 72.1 H (40.0-70.0) % Seg Neutrophils # 3.1 (1.8-7.7) K/mm3 PT 13.1 (12.2-14.9) Sec. INR 0.95 (0.87-1.13) APTT 36.6 (24.2-36.6) Sec. Sodium (137-145) mmol/L Potassium (3.6-5.0) mmol/L Chloride (98-107) mmol/L Carbon Dioxide (22-30) mmol/L Anion Gap mmol/L BUN (7-17) mg/dL Creatinine (0.7-1.2) mg/dL Estimated GFR ml/min BUN/Creatinine Ratio % Glucose (65-100) mg/dL POC Glucose 135 H (70-105) Calcium (8.4-10.2) mg/dL 09/02/17 Range/Units 18:23 WBC (4.5-11.0) K/mm3 RBC (3.65-5.03) M/mm3 Hgb (10.1-14.3) gm/dl Hct (30.3-42.9) % MCV (79-97) fl MCH (28-32) pg MCHC (30-34) % RDW (13.2-15.2) % Plt Count (140-440) K/mm3 Lymph % (Auto) (13.4-35.0) % Vance % (Auto) (0.0-7.3) % Eos % (Auto) (0.0-4.3) % Baso % (Auto) (0.0-1.8) % Lymph # (1.2-5.4) K/mm3 Vance # (0.0-0.8) K/mm3 Eos # (0.0-0.4) K/mm3 Baso # (0.0-0.1) K/mm3 Seg Neutrophils % (40.0-70.0) % Seg Neutrophils # (1.8-7.7) K/mm3 PT (12.2-14.9) Sec. INR (0.87-1.13) APTT (24.2-36.6) Sec. Sodium 143 (137-145) mmol/L Potassium 5.5 H (3.6-5.0) mmol/L Chloride 97.8 L (98-107) mmol/L Carbon Dioxide 31 H (22-30) mmol/L Anion Gap 20 mmol/L BUN 28 H (7-17) mg/dL Creatinine 5.1 H (0.7-1.2) mg/dL Estimated GFR 10 ml/min BUN/Creatinine Ratio 5 % Glucose 116 H (65-100) mg/dL POC Glucose (70-105) Calcium 8.2 L (8.4-10.2) mg/dL - Medical Decision Making Discharge patient home with treatment Left foot ulcer: Chronic appearing Unlikely infected due to lack of, erythema, swelling, or drainage No signs of leukocytosis, fever, or sepsis Patient will be covered with clindamycin Follow-up with Dr. Vivas within the next several days recommended PAD Chronic PAD Unable to palpate DP pulse Faint pulse was dopplerable by RN Follow up with vascular surgeon at [facility] recommended Hyperkalemia Secondary to end-stage renal disease Kayexalate providing any ED printing nephrology consultation and proceed Follow up for her dialysis tomorrow as scheduled - Differential Diagnosis PAD, infected ulcer, skin breakdown/open ulcer Critical Care Time: No Critical care attestation.: If time is entered above; I have spent that time in minutes in the direct care of this critically ill patient, excluding procedure time. ED Disposition Clinical Impression: ESRD (end stage renal disease) on dialysis, Hyperkalemia, Diabetic foot ulcer, PAD (peripheral artery disease) Disposition: TO HOME OR SELFCARE Is pt being admited?: No Does the pt Need Aspirin: No Condition: Stable Instructions: Diabetic Foot Care (ED), Diabetic Foot Ulcers (ED), End-Stage Kidney Disease (ED) Additional Instructions: Go to your hemodialysis tomorrow as scheduled. Follow-up with your police chief deputy for further management of the foot ulcer. Follow with your vascular doctor for further management of your chronic peripheral arterial disease. Return if symptoms worsen as indicated on your discharge instructions Prescriptions: Clindamycin [Clindamycin CAP] 450 mg PO Q8HR 7 Days capsule Referrals: RUPAL LUNA DPM [Staff Physician] - 3-5 Days your, vascular surgeon [Other] - 3-5 Days Time of Disposition: 23:19
== END 2017-09-03 03:09 | disposition home or self-care (01) ==
LOC: ED 17:40
DX: E11.621 Type 2 diabetes mellitus with foot ulcer (principal); E87.5 Hyperkalemia; I73.9 Peripheral vascular disease, unspecified; E11.22 Type 2 diabetes mellitus with diabetic chronic kidney disease; I12.0 Hypertensive chronic kidney disease with stage 5 chronic kidney disease or end stage renal disease; N18.6 End stage renal disease; Z99.2 Dependence on renal dialysis
CPT/HCPCS: 36415; 80048; 82962; 85025; 85610; 85730

== ENCOUNTER 2017-11-10 04:08 | Observation (INO) | payer MEDICARE ==
[2017-11-10 04:45] LABS: Basophils % (Auto) 0.4 % (0.0-1.8); Hematocrit 36.2 % (30.3-42.9); Hemoglobin 11.4 gm/dl (10.1-14.3); Lymphocytes # (Auto) 0.4 K/mm3 (1.2-5.4); Lymphocytes % (Auto) 8.9 % (13.4-35.0); Mean Corpuscular HGB Conc 31 % (30-34); Mean Corpuscular Volume 81 fl (79-97); Monocytes # (Auto) 0.3 K/mm3 (0.0-0.8); Monocytes % (Auto) 7.6 % (0.0-7.3); Platelet Count 166 K/mm3 (140-440); Red Blood Count 4.46 M/mm3 (3.65-5.03); Red Cell Distribution Width 18.9 % (13.2-15.2)
--- NOTE | 2017-11-10 04:52 | XRay Report ---
FINAL REPORT EXAM: XR CHEST ROUTINE 2V HISTORY: Shortness of breath TECHNIQUE: PA and lateral views of the chest were submitted. FINDINGS: The heart is moderately enlarged. The lungs appear mildly congested. There are atelectatic changes in both lower lobes. There are small effusions. The bones and soft tissues reveal a vascular stent in the right-sided mediastinum. IMPRESSION: Cardiomegaly with congestive heart failure pattern and bilateral small effusions. Atelectatic changes in both lung bases.
[2017-11-10 05:02] LABS: Mean Corpuscular Hemoglobin 26 pg (28-32)
[2017-11-10 05:16] LABS: BUN/Creatinine Ratio 8; Blood Urea Nitrogen 62 mg/dL (7-17); Calcium 6.9 mg/dL (8.4-10.2)
[2017-11-10 05:17] LABS: Hemolysis Index 10
[2017-11-10 05:34] LABS: Chol/HDL Ratio 2.42 %; HDL Cholesterol 64 mg/dL (40-59); LDL Cholesterol,Direct 80 mg/dL (50-130)
--- NOTE | 2017-11-10 08:15 | Emergency Department Report ---
HPI - General Chief Complaint: Dyspnea/Respdistress Time Seen by Provider: 11/10/17 08:04 - HPI HPI: 77-year-old -English female presents to the emergency department from home with complaint of some shortness of breath that has been going on for the past 2 days. At first she also complained of some chest pain but says that has since resolved without any medication or intervention. The patient has a history of end-stage renal disease on hemodialysis on Thursday, , Thursday. She missed her last session on Thursday and is due for dialysis today. She goes to [facility] and sees Dr Michelle Duffy. She currently does not have a primary care physician. She says she has an appointment set up for a first appointment to see Dr. Kellogg for cardiology. Recent travel or sick contacts at home. She also has a past medical history of CHF, diabetes, hypertension, kidney stones, seizures, peripheral arterial disease with left lower extremity bypass and left toe amputations. ED Past Medical Hx - Past Medical History Previous Medical History?: Yes Hx Hypertension: Yes Hx Heart Attack/AMI: No Hx Congestive Heart Failure: Yes Hx Diabetes: Yes Hx Deep Vein Thrombosis: No Hx Liver Disease: No Hx Renal Disease: Yes (Dialysis [facility]) Hx Sickle Cell Disease: No Hx Arthritis: No Hx Seizures: Yes Hx Kidney Stones: Yes Hx Asthma: No Hx COPD: No Hx Dementia: No Hx HIV: No Additional medical history: poor circulation left leg, Pulmonary HTN. vitamen d defficency - Surgical History Past Surgical History?: Yes Hx Coronary Stent: No Hx Open Heart Surgery: No Hx Pacemaker: No Hx Internal Defibrillator: No Hx Cholecystectomy: No Hx Appendectomy: No Hx Breast Surgery: No Additional Surgical History: L foot amputation of toes; AV Fistula Upper R arm, PAD with lower extremity bypass - Social History Smoking Status: Never Smoker Substance Use Type: None - Medications Home Medications: Home Medications Medication Instructions Recorded Confirmed Last Taken Type Calcium Carb/Vit D3/Minerals 1 each PO BID #30 tablet 12/04/16 07/25/17 Rx [Caltrate Plus] Lisinopril/Hydrochlorothiazide 0.5 tab PO BID #30 12/04/16 07/25/17 07/25/17 Rx [Zestoretic 20-12.5 mg] Simvastatin [Zocor TAB] 10 mg PO QHS #30 12/04/16 07/25/17 07/25/17 Rx Aspirin EC [Aspirin Enteric Coated 81 mg PO QDAY #30 tablet. 07/26/17 Unknown Rx TAB] Carvedilol [Coreg] 3.125 mg PO BID #60 tablet 07/26/17 Unknown Rx Famotidine [Pepcid] 20 mg PO QAM #30 tablet 07/26/17 Unknown Rx Clindamycin [Clindamycin CAP] 450 mg PO Q8HR 7 Days capsule 09/02/17 Unknown Rx ED Review of Systems ROS: Stated complaint: DOUGLAS Other details as noted in HPI Comment: All other systems reviewed and negative Constitutional: denies: chills, fever Eyes: denies: eye pain, eye discharge, vision change ENT: denies: ear pain, throat pain Respiratory: shortness of breath. denies: cough Cardiovascular: chest pain (resolved). denies: syncope Gastrointestinal: denies: abdominal pain, nausea, diarrhea Genitourinary: denies: urgency, dysuria, discharge Musculoskeletal: denies: back pain, joint swelling, arthralgia Skin: denies: rash, lesions Neurological: denies: headache, weakness, paresthesias Physical Exam - Physical Exam Vital Signs: Vital Signs 11/10/17 04:15 Temperature 97.4 F L Pulse Rate 61 Respiratory 18 Rate Blood Pressure 143/70 O2 Sat by Pulse 97 Oximetry Physical Exam: GENERAL: The patient is well-developed well-nourished. HENT: Normocephalic. Atraumatic. Patient has moist mucous membranes. EYES: Extraocular motions are intact. Pupils equal reactive to light bilaterally. NECK: Supple. Trachea is midline. CHEST/LUNGS: Coarse breath sounds throughout the chest. No tachypnea or accessory muscle use.. There is no respiratory distress noted. HEART/CARDIOVASCULAR: Regular. There is no tachycardia. There is no murmur. ABDOMEN: Abdomen is soft, nontender. Patient has normal bowel sounds. There is no abdominal distention. SKIN: Skin is warm and dry. NEURO: The patient is awake, alert, and oriented. The patient is cooperative. The patient has no focal neurologic deficits. The patient has normal speech. MUSCULOSKELETAL: There is no tenderness or deformity. There is no limitation range of motion. There is no evidence of acute injury. ED Course Vital Signs 11/10/17 04:15 Temperature 97.4 F L Pulse Rate 61 Respiratory 18 Rate Blood Pressure 143/70 O2 Sat by Pulse 97 Oximetry - Consultations Consultation #1: 11/10/17 09:[address] amin, the loom inspector alteration worker, who will see the patient as a consult for ESRD needing dialysis and will arrange for dialysis to be done most likely later today. ED Medical Decision Making - Lab Data Result diagrams: 11/10/17 04:33 11/10/17 04:33 - EKG Data -: EKG Interpreted by Me EKG shows normal: sinus rhythm, axis, intervals, QRS complexes (LVH), ST-T waves Rate: normal - EKG Data When compared to previous EKG there are: previous EKG unavailable Interpretation: LVH - Radiology Data Radiology results: image reviewed interpreted by me: Chest x-ray shows some mild cardiomegaly. There is some bibasilar pleural effusions and some pulmonary vascular congestion. No obvious pneumonia. No pneumothorax. - Medical Decision Making Patient presents with some shortness of breath and some chest pain that has resolved. She missed her last dialysis session. No hyperkalemia but she does appear to have some volume overload on chest x-ray. EKG does not show any signs of ST elevation MS or any significant dysrhythmia. Vital signs stable as far. Spoke with nephrology who will see the patient for dialysis. Patient has been accepted for admission by the hospitalist service and Dr. George. - Differential Diagnosis CHF, Pneumonia, MS, Dysrythmia Critical Care Time: No Critical care attestation.: If time is entered above; I have spent that time in minutes in the direct care of this critically ill patient, excluding procedure time. ED Disposition Clinical Impression: ESRD needing dialysis, Shortness of breath CHF exacerbation Qualifiers: Heart failure type: unspecified Qualified Code(s): I50.9 - Heart failure, unspecified HTN (hypertension) Qualifiers: Hypertension type: essential hypertension Qualified Code(s): I10 - Essential ( primary) hypertension Disposition: OP ADMIT IP TO THIS HOSP Is pt being admited?: Yes Condition: Stable Instructions: Hypertension (ED) Referrals: PRIMARY CARE, [Primary Care Provider] - 3-5 Days Time of Disposition: 09:15
[2017-11-10] MEDS ORDERED: NACL 0.9% 100 ML IV PRN (09:24)
--- NOTE | 2017-11-10 10:50 | Consultation ---
History of Present Illness - Reason for Consult Consult date: 11/10/17 end stage renal disease Requesting physician: DIVINA LEYVA - History of Present Illness This is a 77 yo AAF with history of type 2 diabetes mellitus, hypertension and end-stage renal disease on hemodialysis for more than 10 years now, currently dialyzed at [facility] on TTS schedule. Pt is now being admitted after presenting to ER with complaints of shortness of breath, dyspnea on exertion, orthopnea, along with productive cough. pt missed her HD on last Sat due to generalized weakness, shortness of breath. CXR showed cardiomegaly with evidence of pleural effusion/pulmonary edema. renal consult is requested for management of ESRD/HD, volume control. Pt denies fever, chills, nausea, vomiting , diarrhea, abd pain, dysuria, dizziness, blurry vision. Past History Past Medical History: diabetes, ESRD, hypertension, stroke (2 strokes in 1995 and 1998. Four TIAs the last one in December 1998) Past Surgical History: cataract removal (bilateral cataract extraction. Laser photocoagulation bilaterally), total hip replacement, Other (eft lower extremity bypass, bilateral lower extremity angioplasty, 1/3 parathyroidectomy, left toe amputation. Right upper extremity AV fistula) Social history: , lives with family (son) Family history: other (mother of cancer of the spine. She is not sure of the cause of of her father. She has both a Paternal and a maternal history of diabetes mellitus and hypertension. Sister was diabetic, hypertensive and developed end-stage renal disease.) Medications and Allergies Allergies Allergy/AdvReac Type Severity Reaction Status Date / Time phenytoin sodium Allergy Anaphylaxis Verified 05/08/16 07:07 [From Dilantin] phenytoin sodium extended Allergy Anaphylaxis Verified 05/08/16 07:07 [From Dilantin] Home Medications Medication Instructions Recorded Confirmed Last Taken Type Calcium Carb/Vit D3/Minerals 1 each PO BID #30 tablet 12/04/16 11/10/17 Rx [Caltrate Plus] Simvastatin [Zocor TAB] 10 mg PO QHS #30 12/04/16 11/10/17 07/25/17 Rx Aspirin EC [Aspirin Enteric Coated 81 mg PO QDAY #30 tablet. 07/26/17 Unknown Rx TAB] Famotidine [Pepcid] 20 mg PO QAM #30 tablet 07/26/17 11/10/17 Unknown Rx Labetalol [Normodyne TAB] 100 mg PO DAILY 11/10/17 11/10/17 Unknown History Lisinopril/Hydrochlorothiazide 1 tab PO BID 11/10/17 11/10/17 Unknown History [Zestoretic 20-12.5 mg] Active Meds: Active Medications Sodium Chloride (Nacl 0.9%) 100 mls @ 999 mls/hr IV ALHAJI PRN PRN Reason: Hypotension Review of Systems All systems: negative Constitutional: weakness Cardiovascular: orthopnea, shortness of breath, dyspnea on exertion, paroxysmal nocturnal dyspnea Exam - Vital Signs Vital signs: Vital Signs Temp Pulse Resp BP Pulse Ox 97.4 F L 61 18 143/70 97 11/10/17 04:15 11/10/17 04:15 11/10/17 04:15 11/10/17 04:15 11/10/17 04:15 - General Appearance General appearance: well-developed, well-nourished, appears stated age EENT: ATNC, PERRL, mucous membranes moist Neck: Present: neck supple Respiratory: Rales, Decreased Breath Sounds Heart: regular, S1S2 Gastrointestinal: Present: normoactive bowel sounds Integumentary: no rash, other (trace edema ) Neurologic: no focal deficit, alert and oriented x3, strength 5/5, CN 3-12 intact Psychiatric: mood/affect appropriate, cooperative Results - Lab Results 11/10/17 04:33 11/10/17 04:33 Most recent lab results Calcium 6.9 mg/dL (8.4-10.2) L 11/10/17 04:33 Laboratory Tests 11/10/17 04:33 Calcium 6.9 L Troponin T 0.065 H NT-Pro-B Natriuret Pep > 85779 H Triglycerides 140 Cholesterol 155 LDL Cholesterol Direct 80 HDL Cholesterol 64 H Cholesterol/HDL Ratio 2.42 Assessment and Plan - Patient Problems (1) ESRD needing dialysis Current Visit: Yes Status: Acute Plan to address problem: will arrange HD today, will target UF 3-4L as tolerated for volume control. to cont TTS HD schedule (2) CHF exacerbation Current Visit: Yes Status: Acute Qualifiers: Heart failure type: unspecified Qualified Code(s): I50.9 - Heart failure, unspecified Plan to address problem: volume control with HD (3) HTN (hypertension) Current Visit: Yes Status: Chronic Qualifiers: Hypertension type: essential hypertension Qualified Code(s): I10 - Essential (primary) hypertension Plan to address problem: resume home BP meds. monitor BP after HD/UF, if it remains uncontrolled will titrate up meds accordingly (4) Diabetes mellitus type 2, uncontrolled Current Visit: No Status: Chronic Plan to address problem: glucose control as per primary attending (5) Anemia in chronic kidney disease Current Visit: No Status: Acute Plan to address problem: Hb at target, no need for EPO at present
--- NOTE | 2017-11-10 11:39 | History and Physical Report ---
History of Present Illness History of present illness: 77YOF who pw sob, after missing HD x2 sessions She undergoes hemodialysis at [facility] under the care of Dr. Michelle Duffy Past History Past Medical History: diabetes, dialysis, hypertension Past Surgical History: Other (history of creation of AV fistula. Left transmetatarsal amputation) Social history: other (denies smoking or drinking) Family history: no significant family history (not significant for kidney disease) Past History Past Medical History: diabetes, ESRD, hypertension, stroke (2 strokes in 1995 and 1998. Four TIAs the last one in December 1998) Past Surgical History: cataract removal (bilateral cataract extraction. Laser photocoagulation bilaterally), total hip replacement, Other (eft lower extremity bypass, bilateral lower extremity angioplasty, 1/3 parathyroidectomy, left toe amputation. Right upper extremity AV fistula) Social history: , lives with family (son) Family history: other (mother of cancer of the spine. She is not sure of the cause of of her father. She has both a Paternal and a maternal history of diabetes mellitus and hypertension. Sister was diabetic, hypertensive and developed end-stage renal disease.) Medications and Allergies Allergies Allergy/AdvReac Type Severity Reaction Status Date / Time phenytoin sodium Allergy Anaphylaxis Verified 05/08/16 07:07 [From Dilantin] phenytoin sodium extended Allergy Anaphylaxis Verified 05/08/16 07:07 [From Dilantin] Home Medications Medication Instructions Recorded Confirmed Last Taken Type Calcium Carb/Vit D3/Minerals 1 each PO BID #30 tablet 12/04/16 11/10/17 Rx [Caltrate Plus] Simvastatin [Zocor TAB] 10 mg PO QHS #30 12/04/16 11/10/17 07/25/17 Rx Aspirin EC [Aspirin Enteric Coated 81 mg PO QDAY #30 tablet. 07/26/17 Unknown Rx TAB] Famotidine [Pepcid] 20 mg PO QAM #30 tablet 07/26/17 11/10/17 Unknown Rx Labetalol [Normodyne TAB] 100 mg PO DAILY 11/10/17 11/10/17 Unknown History Lisinopril/Hydrochlorothiazide 1 tab PO BID 11/10/17 11/10/17 Unknown History [Zestoretic 20-12.5 mg] Active Meds: Active Medications Sodium Chloride (Nacl 0.9%) 100 mls @ 999 mls/hr IV ALHAJI PRN PRN Reason: Hypotension Exam - Constitutional Vitals: Temp Pulse Resp BP Pulse Ox 98.3 F 88 20 150/83 96 11/10/17 08:15 11/10/17 08:15 11/10/17 08:15 11/10/17 08:15 11/10/17 08:15 Results - Labs CBC & Chem 7: 11/10/17 04:33 11/10/17 04:33 Labs: Laboratory Last Values WBC 4.4 K/mm3 (4.5-11.0) L 11/10/17 04:33 RBC 4.46 M/mm3 (3.65-5.03) 11/10/17 04:33 Hgb 11.4 gm/dl (10.1-14.3) 11/10/17 04:33 Hct 36.2 % (30.3-42.9) 11/10/17 04:33 MCV 81 fl (79-97) 11/10/17 04:33 MCH 26 pg (28-32) L 11/10/17 04:33 MCHC 31 % (30-34) 11/10/17 04:33 RDW 18.9 % (13.2-15.2) H 11/10/17 04:33 Plt Count 166 K/mm3 (140-440) 11/10/17 04:33 Lymph % (Auto) 8.9 % (13.4-35.0) L 11/10/17 04:33 [place] % (Auto) 7.6 % (0.0-7.3) H 11/10/17 04:33 Eos % (Auto) 1.0 % (0.0-4.3) 11/10/17 04:33 Baso % (Auto) 0.4 % (0.0-1.8) 11/10/17 04:33 Lymph # 0.4 K/mm3 (1.2-5.4) L 11/10/17 04:33 [place] # 0.3 K/mm3 (0.0-0.8) 11/10/17 04:33 Eos # 0.0 K/mm3 (0.0-0.4) 11/10/17 04:33 Baso # 0.0 K/mm3 (0.0-0.1) 11/10/17 04:33 Seg Neutrophils % 82.1 % (40.0-70.0) H 11/10/17 04:33 Seg Neutrophils # 3.6 K/mm3 (1.8-7.7) 11/10/17 04:33 Sodium 139 mmol/L (137-145) 11/10/17 04:33 Potassium 4.7 mmol/L (3.6-5.0) 11/10/17 04:33 Chloride 94.9 mmol/L (98-107) L 11/10/17 04:33 Carbon Dioxide 22 mmol/L (22-30) 11/10/17 04:33 Anion Gap 27 mmol/L 11/10/17 04:33 BUN 62 mg/dL (7-17) H 11/10/17 04:33 Creatinine 7.5 mg/dL (0.7-1.2) H 11/10/17 04:33 Estimated GFR 6 ml/min 11/10/17 04:33 BUN/Creatinine Ratio 8 % 11/10/17 04:33 Glucose 147 mg/dL (65-100) H 11/10/17 04:33 POC Glucose 117 (70-105) H 11/10/17 04:18 Calcium 6.9 mg/dL (8.4-10.2) L 11/10/17 04:33 Troponin T 0.065 ng/mL (0.00-0.029) H 11/10/17 04:33 NT-Pro-B Natriuret Pep > 48702 pg/mL (0-900) H 11/10/17 04:33 Triglycerides 140 mg/dL (2-149) 11/10/17 04:33 Cholesterol 155 mg/dL (50-199) 11/10/17 04:33 LDL Cholesterol Direct 80 mg/dL (50-130) 11/10/17 04:33 HDL Cholesterol 64 mg/dL (40-59) H 11/10/17 04:33 Cholesterol/HDL Ratio 2.42 % 11/10/17 04:33 Assessment and Plan Assessment and plan: 77F who missed two sessions of HD, pw sob and fluid overload problems * fluid overload * esrd * htn * missed hd Plan * esrd per renal * resume home meds * tentative dc home tomorrow if improved
[2017-11-10] MEDS ORDERED: APRESOLINE IV PRN (11:40)
[2017-11-10] MEDS ORDERED: SODIUM CHLORIDE FLUSH SYRINGE 10 ML IV PRN (11:40)
[2017-11-10] MEDS ORDERED: TYLENOL PO PRN (12:00)
[2017-11-10] MEDS ORDERED: ZOFRAN IV PRN (12:00)
[2017-11-10] MEDS: CALTRATE PLUS PO SCH ×2 (15:09→23:40)
[2017-11-10] MEDS ORDERED: NACL 0.9% 1000 ML 1,000 ML ONE (18:48)
[2017-11-10] MEDS ORDERED: SODIUM CHLORIDE FLUSH SYRINGE 10 ML IV SCH (22:00)
[2017-11-10] MEDS ORDERED: PRAVACHOL PO SCH (22:00)
[2017-11-10] MEDS ORDERED: NON-FORMULARY (Simvastatin 10 MG) PO SCH (22:00)
[2017-11-11 04:48] VITALS: BP 139/73
[2017-11-11 05:49] LABS: Calcium 7.2 mg/dL (8.4-10.2)
[2017-11-11] MEDS ORDERED: HALFPRIN EC PO SCH (10:00)
[2017-11-11] MEDS ORDERED: ZESTRIL PO SCH (10:00)
[2017-11-11] MEDS ORDERED: NORMODYNE PO SCH (10:00)
[2017-11-11] MEDS ORDERED: PEPCID PO SCH (10:00)
--- NOTE | 2017-11-11 12:12 | Discharge Summary ---
Providers - Providers Date of Admission: 11/10/17 11:40 Attending physician: RAMONITA GRAHAM MD 11/10/17 09:07 Consult to Physician [CONS] Routine Comment: Consulting Provider: KALEB CHOUDHARY Physician Instructions: Reason For Exam: Dialysis Primary care physician: SHREYA SINHA MD Hospitalization Condition: Stable Disposition: DC-07 LEFT AGAINST MED ADVICE Exam - Constitutional Vitals: Temp Pulse Resp BP Pulse Ox 99.2 F 84 18 139/73 93 11/11/17 03:45 11/11/17 03:45 11/11/17 03:45 11/11/17 03:45 11/11/17 03:45 Plan Follow up with: PRIMARY CAREMD [Primary Care Provider] - 3-5 Days
== END 2017-11-11 08:30 | disposition left against medical advice (07) ==
LOC: ED 04:08 → 2B-ACE 11:40
PROVIDERS: ADMIT Internal Medicine; ATTEND Internal Medicine
DX: E11.22 Type 2 diabetes mellitus with diabetic chronic kidney disease (principal); I13.2 Hypertensive heart and chronic kidney disease with heart failure and with stage 5 chronic kidney disease, or end stage renal disease; I50.9 Heart failure, unspecified; N18.6 End stage renal disease; D63.1 Anemia in chronic kidney disease; E11.51 Type 2 diabetes mellitus with diabetic peripheral angiopathy without gangrene; Z99.2 Dependence on renal dialysis; Z86.73 Personal history of transient ischemic attack (TIA), and cerebral infarction without residual deficits
CPT/HCPCS: 36415; 71046; 80048; 80061; 82962; 83880; 84484; 85025; 93005; 93010; 99285; A9270; G0378; J7030; 96374; 96375

== ENCOUNTER 2018-01-04 06:54 | Observation (INO) | payer MEDICARE ==
[2018-01-04] MEDS ORDERED: ECOTRIN PO NR (08:28)
[2018-01-04] MEDS ORDERED: ECOTRIN PO ONE (08:42)
[2018-01-04] MEDS ORDERED: NACL 0.9% 500 ML 500 ML ONE (08:44)
[2018-01-04] MEDS ORDERED: NACL 0.9% 500 ML 500 ML IV SCH (09:00)
[2018-01-04 09:01] LABS: Basophils % (Auto) 0.6 % (0.0-1.8); Eosinophils # (Auto) 0.1 K/mm3 (0.0-0.4); Eosinophils % (Auto) 3.6 % (0.0-4.3); Hematocrit 32.7 % (30.3-42.9); Lymphocytes # (Auto) 0.5 K/mm3 (1.2-5.4); Lymphocytes % (Auto) 18.4 % (13.4-35.0); Mean Corpuscular HGB Conc 34 % (30-34); Mean Corpuscular Hemoglobin 27 pg (28-32); Mean Corpuscular Volume 81 fl (79-97); Monocytes # (Auto) 0.3 K/mm3 (0.0-0.8); Monocytes % (Auto) 10.1 % (0.0-7.3); Platelet Count 108 K/mm3 (140-440); Red Blood Count 4.05 M/mm3 (3.65-5.03); Red Cell Distribution Width 19.1 % (13.2-15.2)
[2018-01-04 09:04] LABS: INR 1.05 (0.87-1.13)
[2018-01-04 09:37] LABS: Calcium 8.2 mg/dL (8.4-10.2)
[2018-01-04] MEDS ORDERED: HEPARIN/NS 5000 UNIT/500ML(CATH LAB) 1,000 ML IR ONE (11:24)
[2018-01-04] MEDS ORDERED: XYLOCAINE 1% 20 mL ONE (11:24)
[2018-01-04] MEDS ORDERED: SUBLIMAZE ONE (11:25)
[2018-01-04] MEDS ORDERED: VERSED ONE (11:25)
[2018-01-04] MEDS ORDERED: HEPARIN 10,000 UNITS/10 ML 5,000 UNIT in NACL 0.9% 500 ML 500 ML IR ONE (12:00)
[2018-01-04] MEDS ORDERED: SUBLIMAZE IV ONE (12:08)
[2018-01-04] MEDS ORDERED: XYLOCAINE 1% 20 mL INFILTRATI ONE (12:10)
[2018-01-04] MEDS ORDERED: HEPARIN 10,000 UNITS/10 ML ONE (12:20)
[2018-01-04] MEDS ORDERED: HEPARIN 10,000 UNITS/10 ML IV ONE (12:23)
[2018-01-04] MEDS ORDERED: NITROGLYCERIN SYRINGE 3 ML ONE (12:30)
[2018-01-04] MEDS: HEPARIN 10,000 UNITS/10 ML IV ONE ×2 (12:32→12:45)
[2018-01-04] MEDS ORDERED: NITROGLYCERIN SYRINGE UD ONE (12:32)
[2018-01-04] MEDS ORDERED: PLAVIX ONE (12:35)
[2018-01-04] MEDS ORDERED: ALUM-MAG HYDROX-SIMETH 200-200-20MG/5ML ONE (12:47)
[2018-01-04] MEDS ORDERED: PLAVIX PO ONE (12:55)
[2018-01-04] MEDS ORDERED: ALUM-MAG HYDROX-SIMETH 200-200-20MG/5ML PO ONE (12:56)
--- NOTE | 2018-01-04 13:11 | Event Note ---
Date: 01/04/18 Patient had outpatient cardiac catheterization for progressive shortness of breath, dilated cardiomyopathy and abnormal thallium stress test. We found a focal, napkin ring 95% stenosis of the proximal LAD. Successfully treated with a 4.0 x 8 mm bare metal stent. Excellent angiographic result. The patient will be admitted to observation for 23 hours post coronary intervention. Discharged tomorrow morning after routine hemodialysis.
[2018-01-04] MEDS ORDERED: AMBIEN PO PRN (13:20)
[2018-01-04] MEDS ORDERED: ULTRAM PO PRN (13:20)
[2018-01-04] MEDS ORDERED: ZOFRAN IV PRN (13:20)
--- NOTE | 2018-01-04 14:10 | Cardiac Catherization Report ---
CARDIAC CATHETERIZATION REPORT REASON FOR PROCEDURE: The patient is a 77-year-old woman with end-stage renal disease, on hemodialysis, who was found to have a severe dilated cardiomyopathy. A thallium stress test was abnormal, and the patient continued to complain of progressive exertional dyspnea. A cardiac catheterization was recommended. PROCEDURE: The patient was prepped and draped in a sterile fashion after informed consent. Right femoral artery was entered using the Seldinger technique followed by placement of a 6-Danish sheath. Selective left and right coronary angiography was performed using #4 right and left Mirian catheters. The angiograms were reviewed. CORONARY ANGIOGRAPHY: There was mild diffuse coronary calcification. The left main coronary artery contained diffuse mild atherosclerosis. The left anterior descending artery contained a focal, napkin ring stenosis of its proximal segment. There was an up to 95% luminal narrowing. Otherwise, mild diffuse irregularities were noted of the rest of the LAD and diagonal branches. The circumflex artery and its obtuse marginal branches contained diffuse mild atherosclerosis. The right coronary artery was dominant. This vessel contained a 30% ostial stenosis followed by mild luminal irregularities. CORONARY ANGIOPLASTY: After review of the angiograms, ad hoc coronary intervention to the proximal LAD stenosis was recommended. We exchanged for a 3.5 XB guiding catheter and advanced to the left coronary ostium. A 0.014 inch Mold Builder 60 guidewire was introduced into the LAD, across the lesional segment. Following wire placement, in a primary stenting maneuver, we deployed a 4.0 x 8 mm Vision bare metal stent, across the lesional segment. The stent was deployed to optimal pressures. Following stenting, there was an excellent angiographic result, 0 residual stenosis and ARAM 3 flow. The procedure was well tolerated by the patient and there were no complications. The catheters and the sheaths were removed, hemostasis achieved using an Angio-Seal device. The patient was returned to the postprocedure unit in stable condition. There were no complications. CONCLUSION: 1. Severe stenosis of the proximal LAD, notable for a focal, napkin ring stenosis with an up to 95% luminal narrowing. 2. Successful angioplasty and stenting of the proximal LAD, with successful deployment of a 4.0 x 8 mm bare metal stent, excellent angiographic result. [facility]# [id number] CA/NTS
[2018-01-04] MEDS ORDERED: LOPRESSOR ONE (15:02)
[2018-01-04] MEDS: LOPRESSOR PO SCH ×2 (15:11→22:43)
[2018-01-04] MEDS ORDERED: ZESTRIL PO SCH (22:00)
[2018-01-04] MEDS ORDERED: NON-FORMULARY (Simvastatin 10 MG) PO SCH (22:00)
[2018-01-04] MEDS ORDERED: HCTZ PO SCH (22:00)
[2018-01-04] MEDS ORDERED: PRAVACHOL PO SCH (22:00)
[2018-01-04] MEDS ORDERED: NON-FORMULARY (Lisinopril/Hydrochlorothiazide [Zestoretic 20-12.5 Mg] 1 TAB) PO SCH (22:00)
[2018-01-04] MEDS ORDERED: PERCOCET 5/325 PO ONE (22:16)
[2018-01-04 23:32] LABS: Hematocrit 38.5 % (30.3-42.9)
[2018-01-05 04:48] LABS: Creatine Kinase MB 2.2 ng/mL (0.0-4.0)
[2018-01-05 05:03] LABS: Chol/HDL Ratio 2.28 %
[2018-01-05] MEDS: LOPRESSOR PO SCH ×2 (05:51→15:23)
[2018-01-05 07:30] LABS: Basophils % (Auto) 0.6 % (0.0-1.8); Eosinophils # (Auto) 0.1 K/mm3 (0.0-0.4); Eosinophils % (Auto) 2.3 % (0.0-4.3); Hematocrit 35.4 % (30.3-42.9); Hemoglobin 11.7 gm/dl (10.1-14.3); Lymphocytes # (Auto) 0.4 K/mm3 (1.2-5.4); Lymphocytes % (Auto) 11.2 % (13.4-35.0); Mean Corpuscular HGB Conc 33 % (30-34); Mean Corpuscular Hemoglobin 27 pg (28-32); Mean Corpuscular Volume 81 fl (79-97); Monocytes # (Auto) 0.3 K/mm3 (0.0-0.8); Monocytes % (Auto) 8.5 % (0.0-7.3); Platelet Count 105 K/mm3 (140-440); Red Blood Count 4.37 M/mm3 (3.65-5.03); Red Cell Distribution Width 19.5 % (13.2-15.2)
--- NOTE | 2018-01-05 08:10 | XRay Report ---
AP CHEST: HISTORY: Post PCI There is mild cardiomegaly and central pulmonary venous congestion. The lungs are clear. Right brachiocephalic stent is noted. No evidence for pneumothorax. IMPRESSION: No acute process.
[2018-01-05] MEDS ORDERED: NACL 0.9% 100 ML IV PRN ×2 (09:14→14:01)
--- NOTE | 2018-01-05 09:14 | Consultation ---
History of Present Illness - Reason for Consult Consult date: 01/05/18 end stage renal disease, hyperkalemia - History of Present Illness The patient is a 77 YO AAF with history significant for Type 2 diabetes mellitus , Hypertension, Dilated Cardiomyopathy and ESRD on hemodialysis for the past 12 years who was admitted yesterday and underwent Cardiac cath and placement of LAD stent. Her usual symptom is shortness of breath, which is much better since the procedure. Patient denies fever, chills, N, V, D, abd pain, dysuria, dizziness, blurry vision, syncope or CP. She usually gets hemodialysis at [facility] on TTS schedule and followed by . Past History Past Medical History: anemia, diabetes, dialysis, ESRD, hypertension Medications and Allergies Allergies Allergy/AdvReac Type Severity Reaction Status Date / Time phenytoin sodium Allergy Anaphylaxis Verified 05/08/16 07:07 [From Dilantin] phenytoin sodium extended Allergy Anaphylaxis Verified 05/08/16 07:07 [From Dilantin] Home Medications Medication Instructions Recorded Confirmed Last Taken Type Calcium Carb/Vit D3/Minerals 1 each PO BID #30 tablet 12/04/16 01/04/18 Rx [Caltrate Plus] 1 Simvastatin [Zocor TAB] 10 mg PO QHS #30 12/04/16 01/04/18 01/03/18 Rx 10mg Aspirin EC [Aspirin Enteric Coated 81 mg PO QDAY #30 tablet. 07/26/1701/03/18 Rx TAB] 81mg Labetalol [Normodyne TAB] 100 mg PO DAILY 11/10/17 01/04/18 01/03/18 History 100mg Lisinopril/Hydrochlorothiazide 1 tab PO BID 11/10/17 01/04/18 01/03/18 History [Zestoretic 20-12.5 mg] 1 Insulin Glargine [Lantus] 10 unit SUB-Q QHS PRN 01/04/18 01/04/18 Unknown History Lispro Insulin [Humalog] 10 units SC BID 01/04/18 01/04/18 01/03/18 History 10units Active Meds: Active Medications Aspirin (Baby Aspirin) 81 mg PO QDAY [facility] Clopidogrel Bisulfate (Plavix) 75 mg PO QDAY [facility] Hydrochlorothiazide (Hctz) 12.5 mg PO BID [facility] Last Admin: 01/04/18 22:43 Dose: 12.5 mg Lisinopril (Zestril) 20 mg PO BID [facility] Last Admin: 01/04/18 22:43 Dose: 20 mg Metoprolol Tartrate (Lopressor) 25 mg PO Q8HR [facility] Last Admin: 01/05/18 05:51 Dose: 25 mg Ondansetron HCl (Zofran) 4 mg IV Q8H PRN PRN Reason: N/V unrelieved by Reglan Pravastatin Sodium (Pravachol) 20 mg PO QHS [facility] Last Admin: 01/04/18 22:43 Dose: 20 mg Tramadol HCl (Ultram) 50 mg PO Q4H PRN PRN Reason: Pain, Mild (1-3) Zolpidem Tartrate (Ambien) 5 mg PO QHS PRN PRN Reason: Sleep Review of Systems Constitutional: no weight loss, no weight gain, no fever, no chills, no anorexia , no weakness Ears, nose, mouth and throat: no epistaxis Breasts: deferred Cardiovascular: shortness of breath, dyspnea on exertion, high blood pressure, no chest pain, no orthopnea, no palpitations, no edema, no syncope, no lightheadedness, no leg edema Respiratory: shortness of breath, dyspnea on exertion, no cough Gastrointestinal: no abdominal pain, no nausea, no vomiting, no diarrhea, no melena Genitourinary Female: no dysuria, no hematuria Rectal: no bleeding Musculoskeletal: no redness of joints Integumentary: no rash, no wounds, no jaundice Neurological: no paralysis, no weakness, no seizures, no syncope, no change in speech, no change in mentation, no confusion, no memory loss Exam - Vital Signs Vital signs: Vital Signs Temp Pulse Resp BP Pulse Ox 98.6 F 87 16 144/82 97 01/04/18 09:04 01/04/18 09:04 01/04/18 09:04 01/04/18 09:04 01/04/18 09:04 - General Appearance General appearance: well-developed, appears stated age, other (no distress) EENT: ATNC, PERRL, hearing intact, vision intact Neck: Present: neck supple, trachea midline Respiratory: Clear to Ascultation Heart: regular, S1S2, no murmurs Gastrointestinal: Present: normoactive bowel sounds. Absent: tenderness, distended Integumentary: no rash, warm and dry Neurologic: no focal deficit, no asterixis, alert and oriented x3 Musculoskeletal: Present: other (right arm AVG, no edema, left TMA) Psychiatric: mood/affect appropriate, cooperative Results - Lab Results 01/05/18 05:33 01/05/18 04:09 Most recent lab results Calcium 8.0 mg/dL (8.4-10.2) L 01/05/18 04:09 Assessment and Plan 1. Hyperkalemia: Scheduled to get hemodialysis today. Plan to do HD with 2K bath. Renal diet. 2. ESRD: Continue hemodialysis three times a week, TTS schedule. 3. Hypertension: BP well controlled. 4. Anemia: Monitor. 5. CAD: S/p stent.
[2018-01-05] MEDS ORDERED: BABY ASPIRIN PO SCH (10:00)
[2018-01-05] MEDS ORDERED: PLAVIX PO SCH (10:00)
--- NOTE | 2018-01-05 11:05 | Short Stay Summary ---
Short Stay Documentation Date of service: 01/05/18 - History H&P: obtained from office - Allergies and Medications Current Medications: Allergies phenytoin sodium [From Dilantin] Allergy (Verified 05/08/16 07:07) Anaphylaxis phenytoin sodium extended [From Dilantin] Allergy (Verified 05/08/16 07:07) Anaphylaxis Home Medications Medication Instructions Recorded Confirmed Last Taken Type Calcium Carb/Vit D3/Minerals 1 each PO BID #30 tablet 12/04/16 01/04/18 Rx [Caltrate Plus] 1 Simvastatin [Zocor TAB] 10 mg PO QHS #30 12/04/16 01/04/18 01/03/18 Rx 10mg Aspirin EC [Aspirin Enteric Coated 81 mg PO QDAY #30 tablet.dr 07/26/1701/03/18 Rx TAB] 81mg Labetalol [Normodyne TAB] 100 mg PO DAILY 11/10/17 01/04/18 01/03/18 History 100mg Lisinopril/Hydrochlorothiazide 1 tab PO BID 11/10/17 01/04/18 01/03/18 History [Zestoretic 20-12.5 mg] 1 Insulin Glargine [Lantus] 10 unit SUB-Q QHS PRN 01/04/18 01/04/18 Unknown History Lispro Insulin [Humalog] 10 units SC BID 01/04/18 01/04/18 01/03/18 History 10units Active Medications Aspirin (Baby Aspirin) 81 mg PO QDAY [facility] Clopidogrel Bisulfate (Plavix) 75 mg PO QDAY [facility] Hydrochlorothiazide (Hctz) 12.5 mg PO BID [facility] Last Admin: 01/04/18 22:43 Dose: 12.5 mg Sodium Chloride (Nacl 0.9%) 100 mls @ 999 mls/hr IV ALHAJI PRN PRN Reason: Hypotension Lisinopril (Zestril) 20 mg PO BID [facility] Last Admin: 01/04/18 22:43 Dose: 20 mg Metoprolol Tartrate (Lopressor) 25 mg PO Q8HR [facility] Last Admin: 01/05/18 05:51 Dose: 25 mg Ondansetron HCl (Zofran) 4 mg IV Q8H PRN PRN Reason: N/V unrelieved by Luana Pravastatin Sodium (Pravachol) 20 mg PO QHS [facility] Last Admin: 01/04/18 22:43 Dose: 20 mg Tramadol HCl (Ultram) 50 mg PO Q4H PRN PRN Reason: Pain, Mild (1-3) Zolpidem Tartrate (Ambien) 5 mg PO QHS PRN PRN Reason: Sleep - Physical exam General appearance: no acute distress Heart: Regular rate - Brief post op/procedure progress note Procedure: Patient had outpatient cardiac catheterization which showed stenosis of the proximal LAD. The proximal LAD stenosis was treated with a 4.0 x 8 mm bare metal stent. Excellent angiographic result. Condition: stable - Hospital course Hospital course: Stable overnight observation. - Disposition Condition at discharge: Good Disposition: DC-01 TO HOME OR SELFCARE Short Stay Discharge Plan Activity: advance as tolerated Weight Bearing Status: Partial Weight Bearing Diet: low fat, low cholesterol, low salt Wound: keep clean and dry Additional Instructions: Follow up with Dr Kellogg as previously scheduled. Follow up with: PRIMARY MD ERNESTINE [Primary Care Provider] - 7 Days MATTY KELLOGG MD [Staff Physician] - 7 Days Prescriptions: Clopidogrel [Plavix] 75 mg PO QDAY #30 tablet Metoprolol [Lopressor TAB] 50 mg PO BID #60 tablet
[2018-01-05] MEDS ORDERED: NACL 0.9 (PRIMING MACHINE ONLY DIALYSIS) MC ONE (12:30)
[2018-01-05 15:00] LABS: Hepatitis A Antibody IgM Non-Reactive (NonReactive); Hepatitis B Core IgM Non-Reactive (NonReactive); Hepatitis B Surface Antigen Non-Reactive (Negative); Hepatitis C Virus Antibody Non-Reactive (NonReactive)
[2018-01-05 15:24] VITALS: BP 140/77
== END 2018-01-05 16:20 | disposition home or self-care (01) ==
LOC: CATHLABREC 06:54 → 4A 13:21
PROVIDERS: ADMIT Internal Medicine Cardiovascular Disease; ATTEND Internal Medicine Cardiovascular Disease
DX: I25.10 Atherosclerotic heart disease of native coronary artery without angina pectoris (principal); I13.11 Hypertensive heart and chronic kidney disease without heart failure, with stage 5 chronic kidney disease, or end stage renal disease; N18.6 End stage renal disease; E11.22 Type 2 diabetes mellitus with diabetic chronic kidney disease; I42.9 Cardiomyopathy, unspecified; E87.5 Hyperkalemia; D64.9 Anemia, unspecified; Z98.61 Coronary angioplasty status
CPT/HCPCS: 36415; 71045; 80048; 80061; 80074; 82550; 82553; 82962; 84484; 85014; 85018; 85025; 85347; 85610; 85730; 92928; 93005; 93010; 93454; 96374; 96375; 96376; A9270; C1760; C1769; C1876; C1887; C1894; G0378; J1644; J3010; J7030; J7040; G0257; J2250; Q9967

== ENCOUNTER 2018-10-14 08:42 | Inpatient (IN) | payer MEDICARE ==
[2018-10-14] MEDS ORDERED: ASPIRIN PO ONE (08:48)
[2018-10-14 09:06] LABS: Hematocrit 32.4 % (30.3-42.9); Hemoglobin 10.7 gm/dl (10.1-14.3); Mean Corpuscular HGB Conc 33 % (30-34); Mean Corpuscular Volume 78 fl (79-97); Platelet Count 161 K/mm3 (140-440); Red Blood Count 4.13 M/mm3 (3.65-5.03); Red Cell Distribution Width 18.2 % (13.2-15.2)
[2018-10-14 09:46] LABS: Basophils % (Manual) 0 % (0.0-1.8); Eosinophils % (Manual) 0 % (0.0-4.3); Total Cells Counted 100
[2018-10-14 09:50] LABS: Anisocytosis 1+; Platelet Estimate Consistent w Auto; Poikilocytosis 1+
[2018-10-14 10:01] LABS: Calcium 8.8 mg/dL (8.4-10.2)
[2018-10-14 10:58] LABS: Chol/HDL Ratio 2.45 %
--- NOTE | 2018-10-14 12:17 | Emergency Department Report ---
ED General Adult HPI - General Chief complaint: Chest Pain Stated complaint: CHEST PAIN Time Seen by Provider: 10/14/18 09:17 Source: patient Mode of arrival: Ambulatory Limitations: No Limitations - History of Present Illness Initial comments: Patient presents to emergency department with chief complaint of chest pain and started on dialysis. Patient states that she had left-sided chest pain or radiating into the left shoulder. Patient denies any shortness of breath. -: Sudden Location: chest Radiation: other (left upper extremity) Severity scale (0 -10): 4 Quality: sharp Improves with: none Worsens with: none Associated Symptoms: denies other symptoms Treatments Prior to Arrival: none - Related Data Home Medications Medication Instructions Recorded Confirmed Last Taken Lisinopril/Hydrochlorothiazide 1 tab PO BID 11/10/17 01/04/18 01/03/18 [Zestoretic 20-12.5 mg] 1 Insulin Glargine [Lantus VIAL] 10 unit SUB-Q QHS PRN 01/04/18 01/04/18 Unknown Lispro Insulin [Humalog] 10 units SC BID 01/04/18 01/04/18 01/03/18 10units Previous Rx's Medication Instructions Recorded Last Taken Type Calcium Carb/Vit D3/Minerals 1 each PO BID #30 tablet 12/04/16 01/03/18 Rx [Caltrate Plus] 1 Simvastatin [Zocor TAB] 10 mg PO QHS #30 12/04/16 01/03/18 Rx 10mg Aspirin EC [Aspirin Enteric Coated 81 mg PO QDAY #30 tablet. 07/26/17 01/03/18 Rx TAB] 81mg Clopidogrel [Plavix] 75 mg PO QDAY #30 tablet 01/05/18 Unknown Rx Metoprolol [Lopressor TAB] 50 mg PO BID #60 tablet 01/05/18 Unknown Rx Allergies Allergy/AdvReac Type Severity Reaction Status Date / Time phenytoin sodium Allergy Anaphylaxis Verified 05/08/16 07:07 [From Dilantin] phenytoin sodium extended Allergy Anaphylaxis Verified 05/08/16 07:07 [From Dilantin] ED Review of Systems ROS: Stated complaint: CHEST PAIN Other details as noted in HPI Comment: All other systems reviewed and negative Constitutional: denies: chills, fever Eyes: denies: eye pain, eye discharge, vision change ENT: denies: ear pain, throat pain Respiratory: denies: cough, shortness of breath, wheezing Cardiovascular: chest pain. denies: palpitations Endocrine: no symptoms reported Gastrointestinal: denies: abdominal pain, nausea, diarrhea Genitourinary: denies: urgency, dysuria, discharge Musculoskeletal: denies: back pain, joint swelling, arthralgia Skin: denies: rash, lesions Neurological: denies: headache, weakness, paresthesias Psychiatric: denies: anxiety, depression Hematological/Lymphatic: denies: easy bleeding, easy bruising ED Past Medical Hx - Past Medical History Previous Medical History?: Yes Hx Hypertension: Yes Hx Heart Attack/AMI: No Hx Congestive Heart Failure: Yes Hx Diabetes: Yes Hx Deep Vein Thrombosis: No Hx Liver Disease: No Hx Renal Disease: Yes (Dialysis ) Hx Sickle Cell Disease: No Hx Arthritis: No Hx Seizures: Yes Hx Kidney Stones: Yes Hx Asthma: No Hx COPD: No Hx Dementia: No Hx HIV: No Additional medical history: poor circulation left leg, Pulmonary HTN. vitamen d defficency - Surgical History Past Surgical History?: Yes Hx Coronary Stent: No Hx Open Heart Surgery: No Hx Pacemaker: No Hx Internal Defibrillator: No Hx Cholecystectomy: No Hx Appendectomy: No Hx Breast Surgery: No Additional Surgical History: L foot amputation of toes; AV Fistula Upper R arm, PAD with lower extremity bypass - Social History Smoking Status: Never Smoker Substance Use Type: None - Medications Home Medications: Home Medications Medication Instructions Recorded Confirmed Last Taken Type Calcium Carb/Vit D3/Minerals 1 each PO BID #30 tablet 12/04/16 01/04/18 01/03/18 Rx [Caltrate Plus] 1 Simvastatin [Zocor TAB] 10 mg PO QHS #30 12/04/16 01/04/18 01/03/18 Rx 10mg Aspirin EC [Aspirin Enteric Coated 81 mg PO QDAY #30 tablet. 07/26/17 01/04/18 01/03/18 Rx TAB] 81mg Lisinopril/Hydrochlorothiazide 1 tab PO BID 11/10/17 01/04/18 01/03/18 History [Zestoretic 20-12.5 mg] 1 Insulin Glargine [Lantus VIAL] 10 unit SUB-Q QHS PRN 01/04/18 01/04/18 Unknown History Lispro Insulin [Humalog] 10 units SC BID 01/04/18 01/04/18 01/03/18 History 10units Clopidogrel [Plavix] 75 mg PO QDAY #30 tablet 01/05/18 Unknown Rx Metoprolol [Lopressor TAB] 50 mg PO BID #60 tablet 01/05/18 Unknown Rx ED Physical Exam - General Limitations: No Limitations General appearance: alert, in no apparent distress - Head Head exam: Present: atraumatic, normocephalic - Eye Eye exam: Present: normal appearance, PERRL, EOMI - ENT ENT exam: Present: mucous membranes moist - Neck Neck exam: Present: normal inspection - Respiratory Respiratory exam: Present: normal lung sounds bilaterally. Absent: respiratory distress, wheezes, rales, rhonchi - Cardiovascular Cardiovascular Exam: Present: regular rate, normal rhythm. Absent: systolic murmur, diastolic murmur, rubs, gallop - GI/Abdominal GI/Abdominal exam: Present: soft, normal bowel sounds. Absent: distended, tenderness - Extremities Exam Extremities exam: Present: normal inspection - Back Exam Back exam: Present: normal inspection - Neurological Exam Neurological exam: Present: alert, oriented X3, CN II-XII intact. Absent: motor sensory deficit - Psychiatric Psychiatric exam: Present: normal affect, normal mood - Skin Skin exam: Present: warm, dry, intact, normal color. Absent: rash ED Course Vital Signs 10/14/18 10/14/18 10/14/18 08:58 09:00 09:02 Temperature 98.2 F Pulse Rate 108 H 110 H Respiratory 12 15 Rate Blood Pressure Blood Pressure 158/72 [Left] O2 Sat by Pulse 100 98 Oximetry 10/14/18 10/14/18 10/14/18 09:05 09:15 09:30 Temperature Pulse Rate 110 H 109 H 109 H Respiratory 17 15 Rate Blood Pressure 155/88 152/87 Blood Pressure [Left] O2 Sat by Pulse 99 99 Oximetry 10/14/18 10/14/18 10/14/18 09:45 10:00 10:15 Temperature Pulse Rate 108 H 94 H 92 H Respiratory 14 14 15 Rate Blood Pressure 152/92 152/92 152/81 Blood Pressure [Left] O2 Sat by Pulse 98 96 95 Oximetry 10/14/18 10/14/18 10/14/18 10:30 10:46 11:00 Temperature Pulse Rate 106 H 94 H 92 H Respiratory 12 18 17 Rate Blood Pressure 144/73 141/79 143/78 Blood Pressure [Left] O2 Sat by Pulse 98 98 99 Oximetry 10/14/18 10/14/18 10/14/18 11:15 11:30 11:45 Temperature Pulse Rate 93 H 90 91 H Respiratory 13 10 L 12 Rate Blood Pressure 142/83 145/80 141/78 Blood Pressure [Left] O2 Sat by Pulse 100 98 100 Oximetry 10/14/18 10/14/18 10/14/18 12:00 12:15 12:30 Temperature Pulse Rate 89 89 89 Respiratory 16 13 18 Rate Blood Pressure 145/79 148/75 143/74 Blood Pressure [Left] O2 Sat by Pulse 98 99 100 Oximetry 10/14/18 10/14/18 10/14/18 12:45 13:00 13:16 Temperature Pulse Rate 89 93 H 89 Respiratory 14 11 L 13 Rate Blood Pressure 144/80 144/80 136/64 Blood Pressure [Left] O2 Sat by Pulse 97 97 98 Oximetry 10/14/18 13:30 Temperature Pulse Rate 106 H Respiratory 21 Rate Blood Pressure 128/62 Blood Pressure [Left] O2 Sat by Pulse 98 Oximetry ED Medical Decision Making - Lab Data Result diagrams: 10/14/18 08:56 10/14/18 09:17 Lab Results 10/14/18 10/14/18 10/14/18 Range/Units 08:56 09:17 12:15 WBC 7.2 (4.5-11.0) K/mm3 RBC 4.13 (3.65-5.03) M/mm3 Hgb 10.7 (10.1-14.3) gm/dl Hct 32.4 (30.3-42.9) % MCV 78 L (79-97) fl MCH 26 L (28-32) pg MCHC 33 (30-34) % RDW 18.2 H (13.2-15.2) % Plt Count 161 (140-440) K/mm3 Add Manual Diff Complete Total Counted 100 Seg Neuts % (Manual) 83.0 H (40.0-70.0) % Band Neutrophils % 0 % Lymphocytes % (Manual) 12.0 L (13.4-35.0) % Reactive Lymphs % (Man) 0 % Monocytes % (Manual) 5.0 (0.0-7.3) % Eosinophils % (Manual) 0 (0.0-4.3) % Basophils % (Manual) 0 (0.0-1.8) % Metamyelocytes % 0 % Myelocytes % 0 % Promyelocytes % 0 % Blast Cells % 0 % Nucleated RBC % Not Reportable Seg Neutrophils # Man 6.0 (1.8-7.7) K/mm3 Band Neutrophils # 0.0 K/mm3 Lymphocytes # (Manual) 0.9 L (1.2-5.4) K/mm3 Abs React Lymphs (Man) 0.0 K/mm3 Monocytes # (Manual) 0.4 (0.0-0.8) K/mm3 Eosinophils # (Manual) 0.0 (0.0-0.4) K/mm3 Basophils # (Manual) 0.0 (0.0-0.1) K/mm3 Metamyelocytes # 0.0 K/mm3 Myelocytes # 0.0 K/mm3 Promyelocytes # 0.0 K/mm3 Blast Cells # 0.0 K/mm3 WBC Morphology Not Reportable Hypersegmented Neuts Not Reportable Hyposegmented Neuts Not Reportable Hypogranular Neuts Not Reportable Smudge Cells Not Reportable Toxic Granulation Not Reportable Toxic Vacuolation Not Reportable Dohle Bodies Not Reportable Pelger-Huet Anomaly Not Reportable Ephraim Rods Not Reportable Platelet Estimate Consistent w auto Clumped Platelets Not Reportable Plt Clumps, EDTA Not Reportable Large Platelets Not Reportable Giant Platelets Not Reportable Platelet Satelliting Not Reportable Plt Morphology Comment Not Reportable RBC Morphology Not Reportable Dimorphic RBCs Not Reportable Polychromasia Not Reportable Hypochromasia Not Reportable Poikilocytosis 1+ Anisocytosis 1+ Microcytosis Not Reportable Macrocytosis Not Reportable Spherocytes Not Reportable Pappenheimer Bodies Not Reportable Sickle Cells Not Reportable Target Cells Not Reportable Tear Drop Cells Not Reportable Ovalocytes Not Reportable Helmet Cells Not Reportable Farmer-Loyal Bodies Not Reportable [place] Rings Not Reportable Henry Cells Not Reportable Bite Cells Not Reportable Crenated Cell Not Reportable Elliptocytes Not Reportable Acanthocytes (Spur) Not Reportable Rouleaux Not Reportable Hemoglobin C Crystals Not Reportable Schistocytes Not Reportable Malaria parasites Not Reportable Emanuel Bodies Not Reportable Hem Pathologist Commnt No Sodium 136 L (137-145) mmol/L Potassium 3.7 (3.6-5.0) mmol/L Chloride 95.8 L (98-107) mmol/L Carbon Dioxide 26 (22-30) mmol/L Anion Gap 18 mmol/L BUN 12 (7-17) mg/dL Creatinine 2.6 H (0.7-1.2) mg/dL Estimated GFR 22 ml/min BUN/Creatinine Ratio 5 % Glucose 80 (65-100) mg/dL Calcium 8.8 (8.4-10.2) mg/dL Troponin T 0.077 H 0.099 H (0.00-0.029) ng/mL Triglycerides 107 (2-149) mg/dL Cholesterol 172 (50-199) mg/dL LDL Cholesterol Direct 85 (50-130) mg/dL HDL Cholesterol 70 H (40-59) mg/dL Cholesterol/HDL Ratio 2.45 % - EKG Data -: EKG Interpreted by Me EKG shows normal: sinus rhythm Rate: tachycardia - Radiology Data Radiology results: report reviewed Critical care attestation.: If time is entered above; I have spent that time in minutes in the direct care of this critically ill patient, excluding procedure time. ED Disposition Clinical Impression: Chest pain, Elevated troponin Disposition: -09 OP ADMIT IP TO THIS HOSP Is pt being admited?: No Does the pt Need Aspirin: No Condition: Fair Instructions: Chest Pain (ED) Referrals: PRIMARY CARE, [Primary Care Provider] - 3-5 Days
--- NOTE | 2018-10-14 13:41 | History and Physical Report ---
History of Present Illness Chief complaint: My head was hurting, i felt weak, and they sent me here History of present illness: 78 YO Female with ESRD on HD (T,R,Sa ), DM, HTN, CVA, PVD, Pulmonary HTN presents to ED for evaluation. Pt states that she was undergoing dialysis today and experienced a sudden onset of confusion, dizziness, shortness of breath, and chest pain shortly after the initiation of dialysis. Pt states that symptoms improved with cessation of dialysis. EMS notified and upon arrival the patient w as found to be in distress. Pt transported to [facility] for further care and evaluation. Pt seen and evaluated in ED and found to have ESRD, Dialysis Disequilibrium Syndrome, and chest pain. Pt denies fever, chills, palpiations, NVD, Trauma, BRBPR, Productive cough, skin rash, unilateral leg swelling, calf pain, prolonged travel/immobility, individual/family history of DVT/PE. Pt admitted to telemetry and initiated on chest pain protocol. Cardiology and Nephrology consulted in ED. Past History Past Medical History: diabetes, ESRD, hypertension, stroke Past Surgical History: Other (AV Fistula, Foot surgery, Femoral Bypass) Social history: . denies: smoking, alcohol abuse, prescription drug abuse Family history: CAD, hypertension Medications and Allergies Allergies Allergy/AdvReac Type Severity Reaction Status Date / Time phenytoin sodium Allergy Anaphylaxis Verified 05/08/16 07:07 [From Dilantin] phenytoin sodium extended Allergy Anaphylaxis Verified 05/08/16 07:07 [From Dilantin] Home Medications Medication Instructions Recorded Confirmed Last Taken Type Calcium Carb/Vit D3/Minerals 1 each PO BID #30 tablet 12/04/16 01/04/18 01/03/18 Rx [Caltrate Plus] 1 Simvastatin [Zocor TAB] 10 mg PO QHS #30 12/04/16 01/04/18 01/03/18 Rx 10mg Aspirin EC [Aspirin Enteric Coated 81 mg PO QDAY #30 tablet. 07/26/17 01/04/18 01/03/18 Rx TAB] 81mg Lisinopril/Hydrochlorothiazide 1 tab PO BID 11/10/17 01/04/18 01/03/18 History [Zestoretic 20-12.5 mg] 1 Insulin Glargine [Lantus VIAL] 10 unit SUB-Q QHS PRN 01/04/18 01/04/18 Unknown History Lispro Insulin [Humalog] 10 units SC BID 01/04/18 01/04/18 01/03/18 History 10units Clopidogrel [Plavix] 75 mg PO QDAY #30 tablet 01/05/18 Unknown Rx Metoprolol [Lopressor TAB] 50 mg PO BID #60 tablet 01/05/18 Unknown Rx Review of Systems Constitutional: no weight loss, no weight gain, no fever, no chills Ears, nose, mouth and throat: no ear pain, no ear discharge, no tinnitis, no decreased hearing, no nose pain Breasts: no change in shape, no swelling, no mass Cardiovascular: chest pain, shortness of breath, no orthopnea, no palpitations, no rapid/irregular heart beat Respiratory: no cough, no cough with sputum, no excessive sputum, no hemoptysis Gastrointestinal: no nausea, no vomiting, no diarrhea, no constipation Genitourinary Female: no pelvic pain, no flank pain, no menorrhagia, no dysuria, no urinary frequency, no urgency Rectal: no pain, no incontinence, no bleeding Musculoskeletal: no neck stiffness, no shooting arm pain, no low back pain Integumentary: no rash, no pruritis, no redness, no sores, no wounds Neurological: no transient paralysis, no paralysis, no weakness, no parathesias, no numbness, no tingling Psychiatric: no anxiety, no memory loss, no sleep disturbances Endocrine: no cold intolerance, no heat intolerance, no polyphagia, no excessive thirst, no polyuria, no nocturia Hematologic/Lymphatic: no easy bruising, no easy bleeding, no lymphadenopathy Allergic/Immunologic: no urticaria, no allergic rhinitis, no wheezing Exam - Constitutional Vitals: Temp Pulse Resp BP Pulse Ox 98.2 F 90 10 L 145/80 98 10/14/18 09:02 10/14/18 11:30 10/14/18 11:30 10/14/18 11:30 10/14/18 11:30 General appearance: Present: mild distress - EENT Eyes: Present: PERRL ENT: hearing intact, clear oral mucosa - Neck Neck: Present: supple, normal ROM - Respiratory Respiratory effort: normal Respiratory: bilateral: CTA - Cardiovascular Heart Sounds: Present: S1 & S2. Absent: rub, click - Extremities Extremities: pulses symmetrical, No edema Peripheral Pulses: within normal limits - Abdominal General gastrointestinal: Present: soft, non-tender, non-distended, normal bowel sounds Female genitourinary: Present: normal - Integumentary Integumentary: Present: clear, warm, dry - Musculoskeletal Musculoskeletal: gait normal, strength equal bilaterally - Psychiatric Psychiatric: appropriate mood/affect, intact judgment & insight - Neurologic Neurologic: CNII-XII intact, moves all extremities Results - Labs CBC & Chem 7: 10/14/18 08:56 10/14/18 09:17 Labs: Abnormal lab results 10/14/18 10/14/18 10/14/18 Range/Units 08:56 09:17 12:15 MCV 78 L (79-97) fl MCH 26 L (28-32) pg RDW 18.2 H (13.2-15.2) % Seg Neuts % (Manual) 83.0 H (40.0-70.0) % Lymphocytes % (Manual) 12.0 L (13.4-35.0) % Lymphocytes # (Manual) 0.9 L (1.2-5.4) K/mm3 Sodium 136 L (137-145) mmol/L Chloride 95.8 L (98-107) mmol/L Creatinine 2.6 H (0.7-1.2) mg/dL Troponin T 0.077 H 0.099 H (0.00-0.029) ng/mL HDL Cholesterol 70 H (40-59) mg/dL Assessment and Plan - Patient Problems (1) ESRD (end stage renal disease) on dialysis Current Visit: Yes Status: Acute Plan to address problem: Nephrology consulted in ED, dialysis as per renal team, strict I/O, monitor uop q shift, daily weight (2) Dialysis disequilibrium syndrome Current Visit: Yes Status: Acute Plan to address problem: supportive care, monitor uop q shift, monitor bp q shift, supportive care. (3) Chest pain Current Visit: Yes Status: Acute Plan to address problem: Admit to telemetry: Chest pain protocol: serial cardiac enzymes, ekg, telemetry, cardiology consulted in ED, morphine, supplemental oxygen, nitro, aspirin. (4) Diabetes mellitus Current Visit: No Status: Chronic Plan to address problem: ADA diet, insulin, accu check (5) HTN (hypertension) Current Visit: No Status: Chronic Qualifiers: Hypertension type: essential hypertension Qualified Code(s): I10 - Essential (primary) hypertension Plan to address problem: monitor bp q shift, continue medical management (6) DVT prophylaxis Current Visit: No Status: Acute Plan to address problem: SCD to BLE while in bed.
[2018-10-14] MEDS ORDERED: MORPHINE IV PRN (13:50)
[2018-10-14] MEDS ORDERED: BABY ASPIRIN PO STA (13:50)
[2018-10-14] MEDS ORDERED: NITROSTAT SL PRN (13:50)
[2018-10-14] MEDS ORDERED: PROVENTIL IH PRN (13:50)
[2018-10-14] MEDS ORDERED: ZOFRAN IV PRN (13:50)
[2018-10-14] MEDS ORDERED: SODIUM CHLORIDE FLUSH SYRINGE 10 ML IV PRN (13:50)
[2018-10-14] MEDS ORDERED: LANTUS SUB-Q PRN (13:54)
[2018-10-14] MEDS ORDERED: NON-FORMULARY (Simvastatin 10 MG) PO SCH (22:00)
[2018-10-14] MEDS ORDERED: NON-FORMULARY (Lisinopril/Hydrochlorothiazide [Zestoretic 20-12.5 Mg] 1 TAB) PO SCH (22:00)
[2018-10-14] MEDS: CALTRATE PLUS PO SCH (22:55)
[2018-10-14] MEDS: PRAVACHOL PO SCH (22:55)
[2018-10-14] MEDS: HumaLOG SUB-Q SCH (22:56)
[2018-10-14] MEDS: SODIUM CHLORIDE FLUSH SYRINGE 10 ML IV SCH (22:56)
[2018-10-14] MEDS: HCTZ PO SCH (23:00)
[2018-10-14] MEDS: LOPRESSOR PO SCH (23:00)
[2018-10-14] MEDS: ZESTRIL PO SCH (23:01)
[2018-10-15 06:39] LABS: Basophils % (Auto) 0.9 % (0.0-1.8); Eosinophils # (Auto) 0.1 K/mm3 (0.0-0.4); Eosinophils % (Auto) 2.9 % (0.0-4.3); Hematocrit 31.3 % (30.3-42.9); Hemoglobin 10.3 gm/dl (10.1-14.3); Lymphocytes # (Auto) 0.6 K/mm3 (1.2-5.4); Lymphocytes % (Auto) 11.5 % (13.4-35.0); Mean Corpuscular HGB Conc 33 % (30-34); Mean Corpuscular Volume 78 fl (79-97); Monocytes # (Auto) 0.4 K/mm3 (0.0-0.8); Monocytes % (Auto) 8.1 % (0.0-7.3); Platelet Count 161 K/mm3 (140-440); Red Cell Distribution Width 18.5 % (13.2-15.2)
[2018-10-15 06:54] LABS: Calcium 8.3 mg/dL (8.4-10.2)
[2018-10-15] MEDS: HumaLOG SUB-Q SCH ×2 (10:00→21:46)
[2018-10-15] MEDS: CALTRATE PLUS PO SCH ×2 (12:24→21:44)
[2018-10-15] MEDS: ZESTRIL PO SCH ×2 (12:24→21:45)
[2018-10-15] MEDS: LOPRESSOR PO SCH ×2 (12:24→21:45)
[2018-10-15] MEDS: HALFPRIN EC PO SCH (12:24)
[2018-10-15] MEDS: HCTZ PO SCH (12:25)
[2018-10-15] MEDS: PLAVIX PO SCH (12:25)
[2018-10-15] MEDS: SODIUM CHLORIDE FLUSH SYRINGE 10 ML IV SCH ×2 (12:27→21:46)
--- NOTE | 2018-10-15 12:38 | Consultation ---
Addendum entered and electronically signed by JOHNY GARCIA MD 10/15/18 18:23: Patient seen and examined Very difficult patient to deal with Refusing all kind of cardiac testing States that her chest pain has resolved Was actually admitted to [facility] for chest pain and discharged home without cardiac intervention Reports that she never took plavix but she takes her aspirin Patient refusing all kind of cardiac testing for her chest pain. Patient also refusing treatment with plavix therapy Original Note: History of Present Illness Consult date: 10/15/18 Consult reason: chest pain History of present illness: Patient has multiple medical problems. She has end stage renal disease on dialysis. She has a dilated cardiomyopathy and single vessel coronary artery disease status post PCI of the proximal LAD using a BMS done December 2017. An echocardiogram done less than six months ago shows a persistent severe car diomyopathy, ejection fraction 15%. Patient declined outpatient ICD evaluation. Co-morbidities includes PAD, chronic hypertesnion, hyperlipidemia and diabetes. Patient was brought to this hospital with reports of chest pain thus this cardiac consultation. Patient reports chest pain was during dialysis but has since resolved. She denies chest pain on exertion. She has no unusual shortness of breath or palpations. There is no lower extremity edema. Chest x-ray is unavailable. Cycled troponins are elevated likely in the setting of renal disease. ECG is sinus rhythm with LVH of repolarization abnormalities. Past History Past Medical History: diabetes, ESRD, hypertension, stroke Past Surgical History: Other (AV Fistula, Foot surgery, Femoral Bypass) Social history: . denies: smoking, alcohol abuse, prescription drug abuse Family history: CAD, hypertension Medications and Allergies Allergies Allergy/AdvReac Type Severity Reaction Status Date / Time phenytoin sodium Allergy Anaphylaxis Verified 05/08/16 07:07 [From Dilantin] phenytoin sodium extended Allergy Anaphylaxis Verified 05/08/16 07:07 [From Dilantin] Home Medications Medication Instructions Recorded Confirmed Last Taken Type Calcium Carb/Vit D3/Minerals 1 each PO BID #30 tablet 12/04/16 10/14/18 01/03/18 Rx [Caltrate Plus] 1 Aspirin EC [Aspirin Enteric Coated 81 mg PO QDAY #30 tablet. 07/26/17 10/14/18 01/03/18 Rx TAB] 81mg Lisinopril/Hydrochlorothiazide 1 tab PO BID 0310/14/18 01/03/18 History [Zestoretic 20-12.5 mg] 1 Clopidogrel [Plavix] 75 mg PO QDAY #30 tablet 01/05/18 10/14/18 Unknown Rx Metoprolol [Lopressor TAB] 50 mg PO BID #60 tablet 01/05/18 10/14/18 Unknown Rx Carvedilol [Coreg] 3.125 mg PO BID 10/14/18 10/14/18 Unknown History Fe Fumarate/FA/Mv, Min Comb#15 1 tab PO QDAY 10/14/18 10/14/18 Unknown History [Hemocyte Plus] Furosemide [Lasix TAB] 40 mg PO QDAY 10/14/18 10/14/18 Unknown History Potassium Chloride [K-Dur] 20 meq PO QDAY 10/14/18 10/14/18 Unknown History Active Meds: Active Medications Acetaminophen (Tylenol) 650 mg PO Q4H PRN PRN Reason: Pain MILD(1-3)/Fever >100.5/KEE Albuterol (Proventil) 2.5 mg IH Q4HRT PRN PRN Reason: Shortness Of Breath Aspirin (Halfprin Ec) 81 mg PO QDAY [facility] Last Admin: 10/15/18 12:24 Dose: 81 mg Documented by: Clopidogrel Bisulfate (Plavix) 75 mg PO QDAY [facility] Last Admin: 10/15/18 12:25 Dose: 75 mg Documented by: Hydrochlorothiazide (Hctz) 12.5 mg PO BID [facility] Last Admin: 10/15/18 12:25 Dose: 12.5 mg Documented by: Insulin Glargine (Lantus) 10 units SUB-Q QHS PRN PRN Reason: Hyperglycemia Insulin Human Lispro (Humalog) 10 unit SUB-Q BID [facility] Last Admin: 10/15/18 10:00 Dose: Not Given Documented by: Lisinopril (Zestril) 20 mg PO BID [facility] Last Admin: 10/15/18 12:24 Dose: 20 mg Documented by: Metoprolol Tartrate (Lopressor) 50 mg PO BID [facility] Last Admin: 10/15/18 12:24 Dose: 50 mg Documented by: Morphine Sulfate (Morphine) 2 mg IV Q4H PRN PRN Reason: Pain, Moderate (4-6) Multivitamins/Minerals (Caltrate Plus) 1 each PO BID [facility] Last Admin: 10/15/18 12:24 Dose: 1 each Documented by: Nitroglycerin (Nitrostat) 0.4 mg SL Q5M PRN PRN Reason: Chest Pain Ondansetron HCl (Zofran) 4 mg IV Q8H PRN PRN Reason: Nausea And Vomiting Pravastatin Sodium (Pravachol) 20 mg PO QHS [facility] Last Admin: 10/14/18 22:55 Dose: 20 mg Documented by: Sodium Chloride (Sodium Chloride Flush Syringe 10 Ml) 10 ml IV BID [facility] Last Admin: 10/15/18 12:27 Dose: 10 ml Documented by: Sodium Chloride (Sodium Chloride Flush Syringe 10 Ml) 10 ml IV PRN PRN PRN Reason: LINE FLUSH Sodium Chloride (Sodium Chloride Flush Syringe 10 Ml) 10 ml IV PRN PRN PRN Reason: LINE FLUSH Physical Examination Vital Signs Pulse Resp Pulse Ox 108 H 12 100 10/14/18 08:58 10/14/18 08:58 10/14/18 08:58 General appearance: no acute distress HEENT: Positive: PERRL Cardiac: Positive: Reg Rate and Rhythm Lungs: Positive: Decreased Breath Sounds Neuro: Positive: Grossly Intact Results 10/15/18 05:57 10/15/18 05:57 CBC 10/15/18 Range/Units 05:57 WBC 5.2 (4.5-11.0) K/mm3 RBC 4.00 (3.65-5.03) M/mm3 Hgb 10.3 (10.1-14.3) gm/dl Hct 31.3 (30.3-42.9) % Plt Count 161 (140-440) K/mm3 Lymph # 0.6 L (1.2-5.4) K/mm3 [place]ary # 0.4 (0.0-0.8) K/mm3 Eos # 0.1 (0.0-0.4) K/mm3 Baso # 0.0 (0.0-0.1) K/mm3 Comprehensive Metabolic Panel 10/15/18 Range/Units 05:57 Sodium 139 (137-145) mmol/L Potassium 4.9 D (3.6-5.0) mmol/L Chloride 97.2 L (98-107) mmol/L Carbon Dioxide 25 (22-30) mmol/L BUN 19 H (7-17) mg/dL Creatinine 3.9 H (0.7-1.2) mg/dL Glucose 91 (65-100) mg/dL Calcium 8.3 L (8.4-10.2) mg/dL Assessment and Plan Chest pain End stage renal disease on dialysis Dilated cardiomyopathy, EF 15% Patient declined outpatient ICD evaluation. Coronary artery disease status post PCI of the proximal LAD using a BMS done December 2017. Hx of PAD Chronic hypertesnion Hyperlipidemia Diabetes Patient refuses further cardiac workup. We will therefore manage medically. Continue medical management for coronary artery disease and ischemic cardiomyopathy. Follow up with [facility] as scheduled.
[2018-10-15] MEDS ORDERED: PROCRIT IV PRN (17:24)
[2018-10-15] MEDS ORDERED: HEPARIN 10,000 UNITS/10 ML IV PRN (17:24)
[2018-10-15] MEDS ORDERED: NACL 0.9% 100 ML IV PRN (17:24)
--- NOTE | 2018-10-15 17:37 | Consultation ---
History of Present Illness - Reason for Consult Consult date: 10/15/18 end stage renal disease Requesting physician: GARETH WILHELM - History of Present Illness 78-year-old lady with a history of a End stage Renal disease on hemodialysis since 2005. She has long-standing history of type 2 diabetes mellitus and hypertension and dialyzes for 3 hours and 15 minutes on a Thursday, and Thursday schedule at [facility] dialysis. She has a right upper ext remity fistula. Patient also has a history of coronary artery disease and hypertension and had Percutaneous coronary intervention last year. Presents from Dialysis with complaint of left-sided chest pain which she describes as a sharp pain that started after about 2 hours on dialysis. Pain was radiating to left shoulder rated at a 4/10 with no relief with nitroglycerin but was only relieved after she was rinsed offf of dialysis. There was associated shortness of breath, dizziness but no diaphoresis no palpitations no nausea or vomiting. She denies any lower extremity swelling. Past History Past Medical History: diabetes, ESRD, hypertension, stroke Past Surgical History: Other (AV Fistula, Foot surgery, Femoral Bypass) Social history: . denies: smoking, alcohol abuse, prescription drug a buse Family history: CAD, hypertension Medications and Allergies Allergies Allergy/AdvReac Type Severity Reaction Status Date / Time phenytoin sodium Allergy Anaphylaxis Verified 05/08/16 07:07 [From Dilantin] phenytoin sodium extended Allergy Anaphylaxis Verified 05/08/16 07:07 [From Dilantin] Home Medications Medication Instructions Recorded Confirmed Last Taken Type Calcium Carb/Vit D3/Minerals 1 each PO BID #30 tablet 12/04/16 10/14/18 01/03/18 Rx [Caltrate Plus] 1 Aspirin EC [Aspirin Enteric Coated 81 mg PO QDAY #30 tablet. 07/26/17 10/14/18 01/03/18 Rx TAB] 81mg Lisinopril/Hydrochlorothiazide 1 tab PO BID 11/10/17 10/14/18 01/03/18 History [Zestoretic 20-12.5 mg] 1 Clopidogrel [Plavix] 75 mg PO QDAY #30 tablet 01/05/18 10/14/18 Unknown Rx Metoprolol [Lopressor TAB] 50 mg PO BID #60 tablet 01/05/18 10/14/18 Unknown Rx Carvedilol [Coreg] 3.125 mg PO BID 10/14/18 10/14/18 Unknown History Fe Fumarate/FA/Mv, Min Comb#15 1 tab PO QDAY 10/14/18 10/14/18 Unknown History [Hemocyte Plus] Furosemide [Lasix TAB] 40 mg PO QDAY 10/14/18 10/14/18 Unknown History Potassium Chloride [K-Dur] 20 meq PO QDAY 10/14/18 10/14/18 Unknown History Active Meds: Active Medications Acetaminophen (Tylenol) 650 mg PO Q4H PRN PRN Reason: Pain MILD(1-3)/Fever >100.5/KEE Albuterol (Proventil) 2.5 mg IH Q4HRT PRN PRN Reason: Shortness Of Breath Aspirin (Halfprin Ec) 81 mg PO QDAY [facility] Last Admin: 10/15/18 12:24 Dose: 81 mg Documented by: Clopidogrel Bisulfate (Plavix) 75 mg PO QDAY [facility] Last Admin: 10/15/18 12:25 Dose: 75 mg Documented by: Epoetin Gilberto (Procrit) 10,000 unit IV ALHAJI PRN PRN Reason: hemodialysis Heparin Sodium (Porcine) (Heparin 10,000 Units/10 Ml) 1,000 unit IV ALHAJI PRN PRN Reason: hemodialysis Sodium Chloride (Nacl 0.9%) 100 mls @ 999 mls/hr IV ALHAJI PRN PRN Reason: Hypotension Insulin Glargine (Lantus) 10 units SUB-Q QHS PRN PRN Reason: Hyperglycemia Insulin Human Lispro (Humalog) 10 unit SUB-Q BID [facility] Last Admin: 10/15/18 10:00 Dose: Not Given Documented by: Lisinopril (Zestril) 20 mg PO BID [facility] Last Admin: 10/15/18 12:24 Dose: 20 mg Documented by: Metoprolol Tartrate (Lopressor) 50 mg PO BID [facility] Last Admin: 10/15/18 12:24 Dose: 50 mg Documented by: Morphine Sulfate (Morphine) 2 mg IV Q4H PRN PRN Reason: Pain, Moderate (4-6) Multivitamins/Minerals (Caltrate Plus) 1 each PO BID [facility] Last Admin: 10/15/18 12:24 Dose: 1 each Documented by: Nitroglycerin (Nitrostat) 0.4 mg SL Q5M PRN PRN Reason: Chest Pain Ondansetron HCl (Zofran) 4 mg IV Q8H PRN PRN Reason: Nausea And Vomiting Pravastatin Sodium (Pravachol) 20 mg PO QHS [facility] Last Admin: 10/14/18 22:55 Dose: 20 mg Documented by: Sodium Chloride (Sodium Chloride Flush Syringe 10 Ml) 10 ml IV BID [facility] Last Admin: 10/15/18 12:27 Dose: 10 ml Documented by: Sodium Chloride (Sodium Chloride Flush Syringe 10 Ml) 10 ml IV PRN PRN PRN Reason: LINE FLUSH Sodium Chloride (Sodium Chloride Flush Syringe 10 Ml) 10 ml IV PRN PRN PRN Reason: LINE FLUSH Review of Systems All systems: negative (Constitutional: no fever or chills. No anorexia or weight loss. HEENT: No sore throat or sinus drainage no hearing or vision impairment . Cardiovascular: See history of present illness. Respiratory: No cough, sputum, shortness of breath, hemoptysis or wheezing. Gastrointestinal: No nausea, vomiting, abdominal pain, hematemesis or melena. She has had diarrhea on and off most recently last week. Genitourinary: She makes very little urine. No frequency urgency dysuria or hematuria. hematologic: No abnormal bleeding or bruising. Integumentary: Admits to itching but no rash. Neurological: Admits to headache . No focal weakness or numbness, no syncope or seizures. Musculoskeletal: Admits to low back pain. no stiffness. Psychiatry: no anxiety or depression) Exam - Vital Signs Vital signs: Vital Signs Pulse Resp Pulse Ox 108 H 12 100 10/14/18 08:58 10/14/18 08:58 10/14/18 08:58 - Physical Exam Narrative exam: Elderly -Indian female lying in bed in no acute distress HEENT: NCAT, pink oral mucous membrane Neck: Supple, no venous distention CVS: S1S2 RRR with no murmur, rub or gallop Chest: Clear to auscultation Abdomen: Protuberant, soft, nontender, no organomegaly, bowel sounds are present Extremities: No edema, right upper extremity AV fistula Neuro: Awake, alert no focal deficits Results - Lab Results 10/15/18 05:57 10/15/18 05:57 Most recent lab results Calcium 8.3 mg/dL (8.4-10.2) L 10/15/18 05:57 Assessment and Plan - Patient Problems (1) ESRD (end stage renal disease) on dialysis Current Visit: Yes Status: Acute Plan to address problem: Electrolytes are stable and no overt volume overload. Hemodialysis in the morning. Continue per schedule on Tuesdays, and Thursday (2) Anemia in chronic kidney disease Current Visit: No Status: Acute Plan to address problem: Give Erythropoetin on dialysis. Follow-up hemoglobin (3) Chest pain Current Visit: Yes Status: Acute Plan to address problem: Chest pain on dialysis. Patient with history of coronary artery disease and so this is concerning. No further episodes of chest pain since admission. We'll observe how she tolerates dialysis tomorrow. (4) Hypertension associated with stage 5 chronic kidney disease due to type 2 diabetes mellitus Current Visit: No Status: Acute Plan to address problem: Followed blood pressure on current medications (5) Type 2 diabetes mellitus with diabetic nephropathy Current Visit: Yes Status: Acute Plan to address problem: Blood sugar management by primary attending
--- NOTE | 2018-10-15 21:02 | Progress Note ---
Assessment and Plan Assessment and plan: 78-year-old female patient with end-stage renal disease, coronary artery disease status post PCI, diabetes mellitus,hypertension, peripheral vascular disease developed chest pain during dialysis, admitted for further evaluation and management --Chest pain; continue current cardiac medications Procedures cardiac enzymes, EKG, cardiology evaluation noted and appreciated; --History of coronary artery disease status post PCI December 2017 Continue aspirin and Plavix and beta blockers and sona inhibitors Statins and morphine --Dilated cardiomyopathy; EF 15%; anti-failure medications Input output monitoring, low sodium diet, fluid restriction --End-stage renal disease; on hemodialysis HD per scheduled, nephrology following --Hypertension; moderate control, continue current antihypertensives and when necessary medications --Dyslipidemia; on statin. Low-cholesterol diet --Type 2 diabetes mellitus; Accu-Chek sliding scale coverage ADA diet and insulin as needed --DVT prophylaxis; renal dose --Full CODE STATUS --Medical noncompliance; patient counseled the importance of adhering to the treatment plan Closely monitor the patient and adjust the management as needed Follow consultants and recommendations History Interval history: Patient seen and examined medical records reviewed Patient feels slightly better denies any chest pain Alert awake oriented, Vital signs reviewed Hospitalist Physical - Constitutional Vitals: Temp Pulse Resp BP Pulse Ox 97.4 F L 74 18 138/71 100 10/15/18 08:13 10/15/18 08:13 10/15/18 08:13 10/15/18 08:13 10/15/18 11:26 General appearance: Present: no acute distress, well-nourished - EENT Eyes: Present: PERRL, EOM intact - Neck Neck: Present: supple, normal ROM - Respiratory Respiratory effort: normal Respiratory: bilateral: diminished, negative: rales, rhonchi, wheezing - Cardiovascular Rhythm: regular Heart Sounds: Present: S1 & S2 - Extremities Extremities: no ischemia, No edema - Abdominal General gastrointestinal: soft, non-tender, non-distended, normal bowel sounds - Integumentary Integumentary: Present: clear, warm - Psychiatric Psychiatric: appropriate mood/affect, cooperative - Neurologic Neurologic: CNII-XII intact, moves all extremities Results - Labs CBC & Chem 7: 10/15/18 05:57 10/15/18 05:57 Labs: Laboratory Last Values WBC 5.2 K/mm3 (4.5-11.0) 02/22/19 05:57 RBC 4.00 M/mm3 (3.65-5.03) 10/15/18 05:57 Hgb 10.3 gm/dl (10.1-14.3) 10/15/18 05:57 Hct 31.3 % (30.3-42.9) 10/15/18 05:57 MCV 78 fl (79-97) L 10/15/18 05:57 MCH 26 pg (28-32) L 10/15/18 05:57 MCHC 33 % (30-34) 10/15/18 05:57 RDW 18.5 % (13.2-15.2) H 10/15/18 05:57 Plt Count 161 K/mm3 (140-440) 10/15/18 05:57 Lymph % (Auto) 11.5 % (13.4-35.0) L 10/15/18 05:57 [place] % (Auto) 8.1 % (0.0-7.3) H 10/15/18 05:57 Eos % (Auto) 2.9 % (0.0-4.3) 10/15/18 05:57 Baso % (Auto) 0.9 % (0.0-1.8) 10/15/18 05:57 Lymph # 0.6 K/mm3 (1.2-5.4) L 10/15/18 05:57 [place] # 0.4 K/mm3 (0.0-0.8) 10/15/18 05:57 Eos # 0.1 K/mm3 (0.0-0.4) 10/15/18 05:57 Baso # 0.0 K/mm3 (0.0-0.1) 10/15/18 05:57 Add Manual Diff Complete 10/14/18 08:56 Total Counted 100 10/14/18 08:56 Seg Neutrophils % 76.6 % (40.0-70.0) H 10/15/18 05:57 Seg Neuts % (Manual) 83.0 % (40.0-70.0) H 10/14/18 08:56 Band Neutrophils % 0 % 10/14/18 08:56 Lymphocytes % (Manual) 12.0 % (13.4-35.0) L 10/14/18 08:56 Reactive Lymphs % (Man) 0 % 10/14/18 08:56 Monocytes % (Manual) 5.0 % (0.0-7.3) 10/14/18 08:56 Eosinophils % (Manual) 0 % (0.0-4.3) 10/14/18 08:56 Basophils % (Manual) 0 % (0.0-1.8) 10/14/18 08:56 Metamyelocytes % 0 % 10/14/18 08:56 Myelocytes % 0 % 10/14/18 08:56 Promyelocytes % 0 % 10/14/18 08:56 Blast Cells % 0 % 10/14/18 08:56 Nucleated RBC % Not Reportable 10/14/18 08:56 Seg Neutrophils # 4.0 K/mm3 (1.8-7.7) 10/15/18 05:57 Seg Neutrophils # Man 6.0 K/mm3 (1.8-7.7) 10/14/18 08:56 Band Neutrophils # 0.0 K/mm3 10/14/18 08:56 Lymphocytes # (Manual) 0.9 K/mm3 (1.2-5.4) L 10/14/18 08:56 Abs React Lymphs (Man) 0.0 K/mm3 10/14/18 08:56 Monocytes # (Manual) 0.4 K/mm3 (0.0-0.8) 10/14/18 08:56 Eosinophils # (Manual) 0.0 K/mm3 (0.0-0.4) 10/14/18 08:56 Basophils # (Manual) 0.0 K/mm3 (0.0-0.1) 10/14/18 08:56 Metamyelocytes # 0.0 K/mm3 10/14/18 08:56 Myelocytes # 0.0 K/mm3 10/14/18 08:56 Promyelocytes # 0.0 K/mm3 10/14/18 08:56 Blast Cells # 0.0 K/mm3 10/14/18 08:56 WBC Morphology Not Reportable 10/14/18 08:56 Hypersegmented Neuts Not Reportable 10/14/18 08:56 Hyposegmented Neuts Not Reportable 10/14/18 08:56 Hypogranular Neuts Not Reportable 10/14/18 08:56 Smudge Cells Not Reportable 10/14/18 08:56 Toxic Granulation Not Reportable 10/14/18 08:56 Toxic Vacuolation Not Reportable 10/14/18 08:56 Dohle Bodies Not Reportable 10/14/18 08:56 Pelger-Huet Anomaly Not Reportable 10/14/18 08:56 Ephraim Rods Not Reportable 10/14/18 08:56 Platelet Estimate Consistent w auto 10/14/18 08:56 Clumped Platelets Not Reportable 10/14/18 08:56 Plt Clumps, EDTA Not Reportable 10/14/18 08:56 Large Platelets Not Reportable 10/14/18 08:56 Giant Platelets Not Reportable 10/14/18 08:56 Platelet Satelliting Not Reportable 10/14/18 08:56 Plt Morphology Comment Not Reportable 10/14/18 08:56 RBC Morphology Not Reportable 10/14/18 08:56 Dimorphic RBCs Not Reportable 10/14/18 08:56 Polychromasia Not Reportable 10/14/18 08:56 Hypochromasia Not Reportable 10/14/18 08:56 Poikilocytosis 1+ 10/14/18 08:56 Anisocytosis 1+ 10/14/18 08:56 Microcytosis Not Reportable 10/14/18 08:56 Macrocytosis Not Reportable 10/14/18 08:56 Spherocytes Not Reportable 10/14/18 08:56 Pappenheimer Bodies Not Reportable 10/14/18 08:56 Sickle Cells Not Reportable 10/14/18 08:56 Target Cells Not Reportable 10/14/18 08:56 Tear Drop Cells Not Reportable 10/14/18 08:56 Ovalocytes Not Reportable 10/14/18 08:56 Helmet Cells Not Reportable 10/14/18 08:56 [place] Bodies Not Reportable 10/14/18 08:56 [place] Rings Not Reportable 10/14/18 08:56 [place] Cells Not Reportable 10/14/18 08:56 Bite Cells Not Reportable 10/14/18 08:56 Crenated Cell Not Reportable 10/14/18 08:56 Elliptocytes Not Reportable 10/14/18 08:56 Acanthocytes (Spur) Not Reportable 10/14/18 08:56 Rouleaux Not Reportable 10/14/18 08:56 Hemoglobin C Crystals Not Reportable 10/14/18 08:56 Schistocytes Not Reportable 10/14/18 08:56 Malaria parasites Not Reportable 10/14/18 08:56 Emanuel Bodies Not Reportable 10/14/18 08:56 Hem Pathologist Commnt No 10/14/18 08:56 Sodium 139 mmol/L (137-145) 10/15/18 05:57 Potassium 4.9 mmol/L (3.6-5.0) D 10/15/18 05:57 Chloride 97.2 mmol/L (98-107) L 10/15/18 05:57 Carbon Dioxide 25 mmol/L (22-30) 10/15/18 05:57 Anion Gap 22 mmol/L 10/15/18 05:57 BUN 19 mg/dL (7-17) H 10/15/18 05:57 Creatinine 3.9 mg/dL (0.7-1.2) H 10/15/18 05:57 Estimated GFR 13 ml/min 10/15/18 05:57 BUN/Creatinine Ratio 5 % 10/15/18 05:57 Glucose 91 mg/dL (65-100) 10/15/18 05:57 POC Glucose 275 (70-105) H 10/15/18 15:48 Calcium 8.3 mg/dL (8.4-10.2) L 10/15/18 05:57 Troponin T 0.105 ng/mL (0.00-0.029) H* 10/14/18 19:50 Triglycerides 107 mg/dL (2-149) 10/14/18 09:17 Cholesterol 172 mg/dL (50-199) 10/14/18 09:17 LDL Cholesterol Direct 85 mg/dL (50-130) 10/14/18 09:17 HDL Cholesterol 70 mg/dL (40-59) H 10/14/18 09:17 Cholesterol/HDL Ratio 2.45 % 10/14/18 09:17
[2018-10-15] MEDS: PRAVACHOL PO SCH (21:44)
[2018-10-15] MEDS: HEPARIN SUB-Q SCH (21:46)
[2018-10-16 07:56] LABS: Hematocrit 30.7 % (30.3-42.9); Hemoglobin 9.8 gm/dl (10.1-14.3); Mean Corpuscular HGB Conc 32 % (30-34); Mean Corpuscular Volume 80 fl (79-97); Platelet Count 157 K/mm3 (140-440); Red Blood Count 3.82 M/mm3 (3.65-5.03); Red Cell Distribution Width 18.7 % (13.2-15.2)
[2018-10-16 08:17] LABS: Calcium 8.2 mg/dL (8.4-10.2)
[2018-10-16 08:53] LABS: Basophils % (Manual) 0 % (0.0-1.8); Hypochromasia 1+; Ovalocytes Few; Poikilocytosis 1+; Schistocytes Few; Target Cells Rare; Total Cells Counted 100
[2018-10-16 08:54] LABS: Platelet Estimate Consistent w Auto
[2018-10-16] MEDS: HEPARIN SUB-Q SCH ×2 (09:00→22:26)
[2018-10-16] MEDS: HumaLOG SUB-Q SCH ×2 (09:00→22:41)
[2018-10-16] MEDS: ZESTRIL PO SCH ×2 (09:12→22:26)
[2018-10-16] MEDS: HALFPRIN EC PO SCH (09:13)
[2018-10-16] MEDS: CALTRATE PLUS PO SCH ×2 (09:13→22:25)
[2018-10-16] MEDS: PLAVIX PO SCH (09:13)
[2018-10-16] MEDS: SODIUM CHLORIDE FLUSH SYRINGE 10 ML IV PRN (09:14)
--- NOTE | 2018-10-16 09:26 | Progress Note ---
Assessment and Plan - Patient Problems (1) Coronary artery disease Current Visit: Yes Status: Acute Plan to address problem: Patient has single-vessel coronary artery disease, and 8 months ago she underwent successful implant of a large-bore bare-metal stent to the proximal LAD for a focal 95% napkin ring stenosis. We will continue medical therapy and risk factor modification. (2) Nonischemic cardiomyopathy Current Visit: Yes Status: Acute Plan to address problem: Patient has a predominantly nonischemic cardiomyopathy, with left ventricular ejection fraction less than 15%, global hypokinesis. She is recommended for guideline directed medical therapy and ongoing dialysis for fluid management. She has declined a recommendation for primary ICD implant. Subjective Date of service: 10/16/18 Interval history: Patient is comfortable, no new cardiac complaints. As previously outlined, she is noncompliant with medical therapy and recommended cardiac evaluation. Objective Vital Signs Temp Pulse Resp BP BP Pulse Ox 10/16/18 08:17 97.7 F 10/16/18 08:10 75 18 120/63 100 10/16/18 06:10 78 98 10/16/18 03:55 97.8 F 18 124/66 10/15/18 23:30 97.4 F L 74 18 120/65 100 10/15/18 21:45 94 H 123/67 10/15/18 20:00 98.3 F 79 18 100 10/15/18 19:59 77 123/67 99 10/15/18 19:45 75 10/15/18 16:35 98.5 F 75 18 101/49 96 10/15/18 12:16 98.2 F 18 119/54 10/15/18 11:26 100 - Physical Examination General: No Apparent Distress HEENT: Positive: PERRL Neck: Positive: neck supple Cardiac: Positive: Reg Rate and Rhythm Lungs: Positive: Decreased Breath Sounds Neuro: Positive: Grossly Intact Abdomen: Positive: Soft Skin: Positive: Clear Extremities: Absent: edema - Labs and Meds CBC 10/16/18 Range/Units 07:07 WBC 4.2 L (4.5-11.0) K/mm3 RBC 3.82 (3.65-5.03) M/mm3 Hgb 9.8 L (10.1-14.3) gm/dl Hct 30.7 (30.3-42.9) % Plt Count 157 (140-440) K/mm3 Comprehensive Metabolic Panel 10/16/18 Range/Units 07:07 Sodium 139 (137-145) mmol/L Potassium 4.7 (3.6-5.0) mmol/L Chloride 96.8 L (98-107) mmol/L Carbon Dioxide 26 (22-30) mmol/L BUN 26 H (7-17) mg/dL Creatinine 4.8 H (0.7-1.2) mg/dL Glucose 104 H (65-100) mg/dL Calcium 8.2 L (8.4-10.2) mg/dL
--- NOTE | 2018-10-16 10:42 | Progress Note ---
Assessment and Plan - Patient Problems (1) ESRD (end stage renal disease) on dialysis Current Visit: Yes Status: Acute Plan to address problem: Electrolytes are stable and no overt volume overload. Patient is tolerating dialysis. Continue per schedule on Tuesdays, and Thursday (2) Anemia in chronic kidney disease Current Visit: No Status: Acute Plan to address problem: Give Erythropoetin on dialysis. Follow-up hemoglobin (3) Chest pain Current Visit: Yes Status: Acute Plan to address problem: Patient with history of coronary artery disease and so this is concerning. Cardiology input appreciated. If no further episodes of chest pain during dialysis today, she'll be okay to discharge from renal perspective (4) Hypertension associated with stage 5 chronic kidney disease due to type 2 diabetes mellitus Current Visit: No Status: Acute Plan to address problem: Followed blood pressure on current medications (5) Type 2 diabetes mellitus with diabetic nephropathy Current Visit: Yes Status: Acute Plan to address problem: Blood sugar management by primary attending Subjective Date of service: 10/16/18 Principal diagnosis: ESRD Interval history: Patient seen lying in bed on dialysis. She has no complaints. Still has not had any chest pain since admission. She denies shortness of breath, nausea or vomiting. She has a nonproductive cough. Blood pressure 123/63 pulse 78 ultrafiltration 1.5 L blood flows 300 mls/minute Objective - Exam Narrative Exam: Elderly -[place]ine[place] female lying in bed in no acute distress HEENT: NCAT, pink oral mucous membrane Neck: Supple, no venous distention CVS: S1S2 RRR with no murmur, rub or gallop Chest: Clear to auscultation Abdomen: Protuberant, soft, nontender, no organomegaly, bowel sounds are present Extremities: No edema, right upper extremity AV fistula Neuro: Awake, alert no focal deficits - Vital Signs Vital signs: Vital Signs - 12hr 10/15/18 10/16/18 10/16/18 23:30 03:55 06:10 Temperature 97.4 F L 97.8 F Pulse Rate 74 78 Respiratory 18 18 Rate Blood Pressure 124/66 Blood Pressure 120/65 [Left] O2 Sat by Pulse 100 98 Oximetry 10/16/18 10/16/18 08:10 08:17 Temperature 97.7 F Pulse Rate 75 Respiratory 18 Rate Blood Pressure 120/63 Blood Pressure [Left] O2 Sat by Pulse 100 Oximetry - Lab 10/16/18 07:07 10/16/18 07:07 Most recent lab results Calcium 8.2 mg/dL (8.4-10.2) L 10/16/18 07:07 Medications & Allergies - Medications Allergies/Adverse Reactions: Allergies phenytoin sodium [From Dilantin] Allergy (Verified 05/08/16 07:07) Anaphylaxis phenytoin sodium extended [From Dilantin] Allergy (Verified 05/08/16 07:07) Anaphylaxis Home Medications: Home Medications Medication Instructions Recorded Confirmed Last Taken Type Calcium Carb/Vit D3/Minerals 1 each PO BID #30 tablet 12/04/16 10/14/18 01/03/18 Rx [Caltrate Plus] 1 Aspirin EC [Aspirin Enteric Coated 81 mg PO QDAY #30 tablet. 07/26/17 10/14/18 01/03/18 Rx TAB] 81mg Lisinopril/Hydrochlorothiazide 1 tab PO BID 11/10/17 10/14/18 01/03/18 History [Zestoretic 20-12.5 mg] 1 Clopidogrel [Plavix] 75 mg PO QDAY #30 tablet 01/05/18 10/14/18 Unknown Rx Metoprolol [Lopressor TAB] 50 mg PO BID #60 tablet 01/05/18 10/14/18 Unknown Rx Carvedilol [Coreg] 3.125 mg PO BID 10/14/18 10/14/18 Unknown History Fe Fumarate/FA/Mv, Min Comb#15 1 tab PO QDAY 10/14/18 10/14/18 Unknown History [Hemocyte Plus] Furosemide [Lasix TAB] 40 mg PO QDAY 10/14/18 10/14/18 Unknown History Potassium Chloride [K-Dur] 20 meq PO QDAY 10/14/18 10/14/18 Unknown History Active Medications: Generic Name Dose Route Start Last Admin Trade Name Freq PRN Reason Stop Dose Admin Acetaminophen 650 mg 10/14/18 13:50 Tylenol PO Q4H PRN Pain MILD(1-3)/Fever >100.5/KEE Albuterol 2.5 mg 10/14/18 13:50 Proventil IH Q4HRT PRN Shortness Of Breath Aspirin 81 mg 10/15/18 10:00 10/16/18 09:13 Halfprin Ec PO 81 mg QDAY LUCIO Administration Clopidogrel Bisulfate 75 mg 10/15/18 10:00 10/16/18 09:13 Plavix PO 75 mg QDAY LUCIO Administration Epoetin Gilberto 10,000 unit 10/15/18 17:24 Procrit IV ALHAJI PRN hemodialysis Heparin Sodium (Porcine) 1,000 unit 10/15/18 17:24 Heparin 10,000 Units/10 Ml IV ALHAJI PRN hemodialysis Heparin Sodium (Porcine) 5,000 unit 10/15/18 22:00 10/15/18 21:46 Heparin SUB-Q 5,000 unit Q12HR LUCIO Administration Sodium Chloride 100 mls @ 999 mls/hr 10/15/18 17:24 Nacl 0.9% IV ALHAJI PRN Hypotension Insulin Glargine 10 units 10/14/18 13:54 Lantus SUB-Q QHS PRN Hyperglycemia Insulin Human Lispro 10 unit 10/14/18 22:00 10/15/18 21:46 Humalog SUB-Q Not Given BID LUCIO Lisinopril 20 mg 10/14/18 22:00 10/16/18 09:12 Zestril PO 20 mg BID LUCIO Administration Metoprolol Tartrate 50 mg 10/14/18 22:00 10/15/18 21:45 Lopressor PO 50 mg BID LUCIO Administration Morphine Sulfate 2 mg 10/14/18 13:50 Morphine IV Q4H PRN Pain, Moderate (4-6) Multivitamins/Minerals 1 each 10/14/18 22:00 10/16/18 09:13 Caltrate Plus PO 1 each BID LUCIO Administration Nitroglycerin 0.4 mg 10/14/18 13:50 Nitrostat SL Q5M PRN Chest Pain Ondansetron HCl 4 mg 10/14/18 13:50 Zofran IV Q8H PRN Nausea And Vomiting Pravastatin Sodium 20 mg 10/14/18 22:00 10/15/18 21:44 Pravachol PO 20 mg QHS LUCIO Administration Sodium Chloride 10 ml 10/14/18 22:00 10/15/18 21:46 Sodium Chloride Flush Syringe 10 Ml IV 10 ml BID LUCIO Administration Sodium Chloride 10 ml 10/14/18 13:50 10/16/18 09:14 Sodium Chloride Flush Syringe 10 Ml IV 10 ml PRN PRN Administration LINE FLUSH Sodium Chloride 10 ml 10/14/18 13:50 Sodium Chloride Flush Syringe 10 Ml IV PRN PRN LINE FLUSH
[2018-10-16] MEDS ORDERED: MUCINEX ER PO SCH (11:00)
[2018-10-16] MEDS ORDERED: NACL 0.9 (PRIMING MACHINE ONLY DIALYSIS) MC ONE (11:45)
--- NOTE | 2018-10-16 13:14 | Progress Note ---
Assessment and Plan Assessment and plan: 78-year-old female patient with end-stage renal disease, coronary artery disease status post PCI, diabetes mellitus,hypertension, peripheral vascular disease developed chest pain during dialysis, admitted for further evaluation and management --Chest pain; continue current cardiac medications Procedures cardiac enzymes, EKG, cardiology evaluation noted and appreciated; --History of coronary artery disease status post PCI December 2017 Continue aspirin and Plavix and beta blockers and sona inhibitors Statins and morphine --Dilated cardiomyopathy; EF 15%; anti-failure medications Input output monitoring, low sodium diet, fluid restriction, refused ICD --End-stage renal disease; on hemodialysis HD per scheduled, nephrology following --Hypertension; moderate control, continue current antihypertensives and when necessary medications --Dyslipidemia; on statin. Low-cholesterol diet --Type 2 diabetes mellitus; Accu-Chek sliding scale coverage ADA diet and insulin as needed --DVT prophylaxis; renal dose --Full CODE STATUS --Medical noncompliance; patient counseled the importance of adhering to the treatment plan Closely monitor the patient and adjust the management as needed Follow consultants and recommendations History Interval history: Review of systems Constitutional: No fevers, no malaise, no joint pains CVS: No chest pain, no orthopnea, no dyspnea on exertion, no pedal edema GI: No abdominal pain, no diarrhea, no vomiting, no constipation Respiratory: No shortness of breath, no wheezing, no coughing Hospitalist Physical - Physical exam Narrative exam: General.: Appears well, no distress, nontoxic HEENT: Moist mucous membranes, extraocular muscles intact, no lymphadenopathy Neck: supple Cardiac: S1-S2 heard Lungs: clear to auscultation bilaterally Abdomen: soft , nontender, nondistended, bowel sounds positive Extremities: no edema clubbing or cyanosis Skin: no rash or lesions Neurologic: no gross focal deficits Psych: calm, and cooperative - Constitutional Vitals: Temp Pulse Resp BP Pulse Ox 98.2 F 79 18 138/61 100 10/16/18 10:00 10/16/18 12:30 10/16/18 10:00 10/16/18 12:30 10/16/18 08:10 General appearance: Present: no acute distress, well-nourished Results - Labs CBC & Chem 7: 10/16/18 07:07 10/16/18 07:07 Labs: Laboratory Last Values WBC 4.2 K/mm3 (4.5-11.0) L 10/16/18 07:07 RBC 3.82 M/mm3 (3.65-5.03) 10/16/18 07:07 Hgb 9.8 gm/dl (10.1-14.3) L 10/16/18 07:07 Hct 30.7 % (30.3-42.9) 10/16/18 07:07 MCV 80 fl (79-97) 10/16/18 07:07 MCH 26 pg (28-32) L 10/16/18 07:07 MCHC 32 % (30-34) 10/16/18 07:07 RDW 18.7 % (13.2-15.2) H 10/16/18 07:07 Plt Count 157 K/mm3 (140-440) 10/16/18 07:07 Lymph % (Auto) 11.5 % (13.4-35.0) L 10/15/18 05:57 [place] % (Auto) 8.1 % (0.0-7.3) H 10/15/18 05:57 Eos % (Auto) 2.9 % (0.0-4.3) 10/15/18 05:57 Baso % (Auto) 0.9 % (0.0-1.8) 10/15/18 05:57 Lymph # 0.6 K/mm3 (1.2-5.4) L 10/15/18 05:57 [place] # 0.4 K/mm3 (0.0-0.8) 10/15/18 05:57 Eos # 0.1 K/mm3 (0.0-0.4) 10/15/18 05:57 Baso # 0.0 K/mm3 (0.0-0.1) 10/15/18 05:57 Add Manual Diff Complete 10/16/18 07:07 Total Counted 100 10/16/18 07:07 Seg Neutrophils % 76.6 % (40.0-70.0) H 10/15/18 05:57 Seg Neuts % (Manual) 71.0 % (40.0-70.0) H 10/16/18 07:07 Band Neutrophils % 0 % 10/16/18 07:07 Lymphocytes % (Manual) 11.0 % (13.4-35.0) L 10/16/18 07:07 Reactive Lymphs % (Man) 0 % 10/16/18 07:07 Monocytes % (Manual) 16.0 % (0.0-7.3) H 10/16/18 07:07 Eosinophils % (Manual) 2.0 % (0.0-4.3) 10/16/18 07:07 Basophils % (Manual) 0 % (0.0-1.8) 10/16/18 07:07 Metamyelocytes % 0 % 10/16/18 07:07 Myelocytes % 0 % 10/16/18 07:07 Promyelocytes % 0 % 10/16/18 07:07 Blast Cells % 0 % 10/16/18 07:07 Nucleated RBC % Not Reportable 10/16/18 07:07 Seg Neutrophils # 4.0 K/mm3 (1.8-7.7) 10/15/18 05:57 Seg Neutrophils # Man 3.0 K/mm3 (1.8-7.7) 10/16/18 07:07 Band Neutrophils # 0.0 K/mm3 10/16/18 07:07 Lymphocytes # (Manual) 0.5 K/mm3 (1.2-5.4) L 10/16/18 07:07 Abs React Lymphs (Man) 0.0 K/mm3 10/16/18 07:07 Monocytes # (Manual) 0.7 K/mm3 (0.0-0.8) 10/16/18 07:07 Eosinophils # (Manual) 0.1 K/mm3 (0.0-0.4) 10/16/18 07:07 Basophils # (Manual) 0.0 K/mm3 (0.0-0.1) 10/16/18 07:07 Metamyelocytes # 0.0 K/mm3 10/16/18 07:07 Myelocytes # 0.0 K/mm3 10/16/18 07:07 Promyelocytes # 0.0 K/mm3 10/16/18 07:07 Blast Cells # 0.0 K/mm3 10/16/18 07:07 WBC Morphology Not Reportable 10/16/18 07:07 Hypersegmented Neuts Not Reportable 10/16/18 07:07 Hyposegmented Neuts Not Reportable 10/16/18 07:07 Hypogranular Neuts Not Reportable 10/16/18 07:07 Smudge Cells Not Reportable 10/16/18 07:07 Toxic Granulation Not Reportable 10/16/18 07:07 Toxic Vacuolation Not Reportable 10/16/18 07:07 Dohle Bodies Not Reportable 10/16/18 07:07 Pelger-Huet Anomaly Not Reportable 10/16/18 07:07 Ephraim Rods Not Reportable 10/16/18 07:07 Platelet Estimate Consistent w auto 10/16/18 07:07 Clumped Platelets Not Reportable 10/16/18 07:07 Plt Clumps, EDTA Not Reportable 10/16/18 07:07 Large Platelets Not Reportable 10/16/18 07:07 Giant Platelets Not Reportable 10/16/18 07:07 Platelet Satelliting Not Reportable 10/16/18 07:07 Plt Morphology Comment Not Reportable 10/16/18 07:07 RBC Morphology Not Reportable 10/16/18 07:07 Dimorphic RBCs Not Reportable 10/16/18 07:07 Polychromasia Not Reportable 10/16/18 07:07 Hypochromasia 1+ 10/16/18 07:07 Poikilocytosis 1+ 10/16/18 07:07 Anisocytosis Not Reportable 10/16/18 07:07 Microcytosis Few 10/16/18 07:07 Macrocytosis Not Reportable 10/16/18 07:07 Spherocytes Not Reportable 10/16/18 07:07 Pappenheimer Bodies Not Reportable 10/16/18 07:07 Sickle Cells Not Reportable 10/16/18 07:07 Target Cells Rare 10/16/18 07:07 Tear Drop Cells Not Reportable 10/16/18 07:07 Ovalocytes Few 10/16/18 07:07 Helmet Cells Not Reportable 10/16/18 07:07 Farmer-[place] Bodies Not Reportable 10/16/18 07:07 [place] Rings Not Reportable 10/16/18 07:07 [place] Cells Not Reportable 10/16/18 07:07 Bite Cells Not Reportable 10/16/18 07:07 Crenated Cell Not Reportable 10/16/18 07:07 Elliptocytes Not Reportable 10/16/18 07:07 Acanthocytes (Spur) Not Reportable 10/16/18 07:07 Rouleaux Not Reportable 10/16/18 07:07 Hemoglobin C Crystals Not Reportable 10/16/18 07:07 Schistocytes Few 10/16/18 07:07 Malaria parasites Not Reportable 10/16/18 07:07 Emanuel Bodies Not Reportable 10/16/18 07:07 Hem Pathologist Commnt No 10/16/18 07:07 Sodium 139 mmol/L (137-145) 10/16/18 07:07 Potassium 4.7 mmol/L (3.6-5.0) 10/16/18 07:07 Chloride 96.8 mmol/L (98-107) L 10/16/18 07:07 Carbon Dioxide 26 mmol/L (22-30) 10/16/18 07:07 Anion Gap 21 mmol/L 10/16/18 07:07 BUN 26 mg/dL (7-17) H 10/16/18 07:07 Creatinine 4.8 mg/dL (0.7-1.2) H 10/16/18 07:07 Estimated GFR 11 ml/min 10/16/18 07:07 BUN/Creatinine Ratio 5 % 10/16/18 07:07 Glucose 104 mg/dL (65-100) H 10/16/18 07:07 POC Glucose 89 (70-105) 10/16/18 06:21 Calcium 8.2 mg/dL (8.4-10.2) L 10/16/18 07:07 Troponin T 0.105 ng/mL (0.00-0.029) H* 10/14/18 19:50 Triglycerides 107 mg/dL (2-149) 10/14/18 09:17 Cholesterol 172 mg/dL (50-199) 10/14/18 09:17 LDL Cholesterol Direct 85 mg/dL (50-130) 10/14/18 09:17 HDL Cholesterol 70 mg/dL (40-59) H 10/14/18 09:17 Cholesterol/HDL Ratio 2.45 % 10/14/18 09:17
[2018-10-16] MEDS: LOPRESSOR PO SCH ×2 (15:25→22:25)
[2018-10-16] MEDS: TYLENOL PO PRN (15:36)
[2018-10-16] MEDS ORDERED: MUCINEX ER PO ONE (16:00)
[2018-10-16] MEDS: PRAVACHOL PO SCH (22:26)
[2018-10-16] MEDS: SODIUM CHLORIDE FLUSH SYRINGE 10 ML IV SCH (22:26)
[2018-10-17] MEDS: HumaLOG SUB-Q SCH ×2 (08:40→22:00)
[2018-10-17] MEDS: MUCINEX ER PO SCH ×2 (09:12→22:00)
[2018-10-17] MEDS: CALTRATE PLUS PO SCH ×2 (09:12→22:00)
[2018-10-17] MEDS: ZESTRIL PO SCH (09:12)
[2018-10-17] MEDS: PLAVIX PO SCH (09:13)
[2018-10-17] MEDS: TYLENOL PO PRN (09:13)
[2018-10-17] MEDS: SODIUM CHLORIDE FLUSH SYRINGE 10 ML IV SCH (09:16)
[2018-10-17] MEDS: HALFPRIN EC PO SCH (10:10)
[2018-10-17] MEDS: LOPRESSOR PO SCH ×2 (10:15→22:00)
--- NOTE | 2018-10-17 10:25 | Progress Note ---
Assessment and Plan - Patient Problems (1) Coronary artery disease Current Visit: Yes Status: Acute Plan to address problem: Patient has single-vessel coronary artery disease, and 8 months ago she underwent successful implant of a large-bore bare-metal stent to the proximal LAD for a focal 95% napkin ring stenosis. We will continue medical therapy and risk factor modification. (2) Nonischemic cardiomyopathy Current Visit: Yes Status: Acute Plan to address problem: Patient has a predominantly nonischemic cardiomyopathy, with left ventricular ejection fraction less than 15%, global hypokinesis. She is recommended for guideline directed medical therapy and ongoing dialysis for fluid management. She has declined a recommendation for primary ICD implant. She is stable for cardiac discharge on medical therapy as previously outlined. Subjective Date of service: 10/17/18 Principal diagnosis: ESRD Interval history: Patient is comfortable, no cardiac complaints, looks and feels well. She wants to be maintained on medical therapy for her coronary artery disease and has largely nonischemic cardiomyopathy. She declines further cardiac testing, and declines ICD implant. Objective Vital Signs Temp Pulse Resp BP Pulse Ox 10/17/18 09:13 18 10/17/18 09:12 97.8 F 10/17/18 09:09 75 18 119/53 98 10/17/18 06:19 72 10/17/18 05:05 98.1 F 72 17 121/62 95 10/16/18 23:50 98.8 F 70 18 111/55 97 10/16/18 22:26 73 109/55 10/16/18 22:25 73 109/55 10/16/18 20:07 98.2 F 73 17 109/55 96 10/16/18 16:39 98.1 F 10/16/18 16:38 98.1 F 75 18 121/56 97 10/16/18 13:20 98.0 F 80 18 142/77 10/16/18 13:00 83 138/68 10/16/18 12:45 82 124/64 10/16/18 12:30 79 138/61 10/16/18 12:15 80 136/66 10/16/18 12:00 80 130/65 10/16/18 11:45 81 129/66 10/16/18 11:30 81 131/68 10/16/18 11:15 81 130/63 10/16/18 11:00 80 131/68 10/16/18 10:45 84 132/69 10/16/18 10:30 79 123/65 - Physical Examination General: No Apparent Distress HEENT: Positive: PERRL Neck: Positive: neck supple Cardiac: Positive: Reg Rate and Rhythm Lungs: Positive: Decreased Breath Sounds Neuro: Positive: Grossly Intact Abdomen: Positive: Soft Skin: Positive: Clear Extremities: Absent: edema
[2018-10-17] MEDS: HEPARIN SUB-Q SCH ×2 (10:36→22:00)
--- NOTE | 2018-10-17 14:01 | Progress Note ---
Assessment and Plan Assessment and plan: 78-year-old female patient with end-stage renal disease, coronary artery disease status post PCI, diabetes mellitus,hypertension, peripheral vascular disease developed chest pain during dialysis, admitted for further evaluation and management --Chest pain; continue current cardiac medications Procedures cardiac enzymes, EKG, cardiology evaluation noted and appreciated; --History of coronary artery disease status post PCI December 2017 Continue aspirin and Plavix and beta blockers and sona inhibitors Statins and morphine --Dilated cardiomyopathy; EF 15%; anti-failure medications Input output monitoring, low sodium diet, fluid restriction, refused ICD --End-stage renal disease; on hemodialysis HD per scheduled, nephrology following --Hypertension; moderate control, continue current antihypertensives and when necessary medications --Dyslipidemia; on statin. Low-cholesterol diet --Type 2 diabetes mellitus; Accu-Chek sliding scale coverage ADA diet and insulin as needed --DVT prophylaxis; renal dose --Full CODE STATUS --Medical noncompliance; patient counseled the importance of adhering to the treatment plan Closely monitor the patient and adjust the management as needed Follow consultants and recommendations History Interval history: Review of systems Constitutional: No fevers, no malaise, no joint pains CVS: No chest pain, no orthopnea, no dyspnea on exertion, no pedal edema GI: No abdominal pain, no diarrhea, no vomiting, no constipation Respiratory: No shortness of breath, no wheezing, no coughing Hospitalist Physical - Physical exam Narrative exam: General.: Appears well, no distress, nontoxic HEENT: Moist mucous membranes, extraocular muscles intact, no lymphadenopathy Neck: supple Cardiac: S1-S2 heard Lungs: clear to auscultation bilaterally Abdomen: soft , nontender, nondistended, bowel sounds positive Extremities: no edema clubbing or cyanosis Skin: no rash or lesions Neurologic: no gross focal deficits Psych: calm, and cooperative - Constitutional Vitals: Temp Pulse Resp BP Pulse Ox 98.2 F 71 18 107/50 98 10/17/18 12:05 10/17/18 12:06 10/17/18 12:06 10/17/18 12:06 10/17/18 12:06 General appearance: Present: no acute distress, well-nourished Results - Labs CBC & Chem 7: 10/16/18 07:07 10/16/18 07:07 Labs: Laboratory Last Values WBC 4.2 K/mm3 (4.5-11.0) L 10/16/18 07:07 RBC 3.82 M/mm3 (3.65-5.03) 10/16/18 07:07 Hgb 9.8 gm/dl (10.1-14.3) L 10/16/18 07:07 Hct 30.7 % (30.3-42.9) 10/16/18 07:07 MCV 80 fl (79-97) 10/16/18 07:07 MCH 26 pg (28-32) L 10/16/18 07:07 MCHC 32 % (30-34) 10/16/18 07:07 RDW 18.7 % (13.2-15.2) H 10/16/18 07:07 Plt Count 157 K/mm3 (140-440) 10/16/18 07:07 Lymph % (Auto) 11.5 % (13.4-35.0) L 10/15/18 05:57 [place] % (Auto) 8.1 % (0.0-7.3) H 10/15/18 05:57 Eos % (Auto) 2.9 % (0.0-4.3) 10/15/18 05:57 Baso % (Auto) 0.9 % (0.0-1.8) 10/15/18 05:57 Lymph # 0.6 K/mm3 (1.2-5.4) L 10/15/18 05:57 [place] # 0.4 K/mm3 (0.0-0.8) 10/15/18 05:57 Eos # 0.1 K/mm3 (0.0-0.4) 10/15/18 05:57 Baso # 0.0 K/mm3 (0.0-0.1) 10/15/18 05:57 Add Manual Diff Complete 10/16/18 07:07 Total Counted 100 10/16/18 07:07 Seg Neutrophils % 76.6 % (40.0-70.0) H 10/15/18 05:57 Seg Neuts % (Manual) 71.0 % (40.0-70.0) H 10/16/18 07:07 Band Neutrophils % 0 % 10/16/18 07:07 Lymphocytes % (Manual) 11.0 % (13.4-35.0) L 10/16/18 07:07 Reactive Lymphs % (Man) 0 % 10/16/18 07:07 Monocytes % (Manual) 16.0 % (0.0-7.3) H 10/16/18 07:07 Eosinophils % (Manual) 2.0 % (0.0-4.3) 10/16/18 07:07 Basophils % (Manual) 0 % (0.0-1.8) 10/16/18 07:07 Metamyelocytes % 0 % 10/16/18 07:07 Myelocytes % 0 % 10/16/18 07:07 Promyelocytes % 0 % 10/16/18 07:07 Blast Cells % 0 % 10/16/18 07:07 Nucleated RBC % Not Reportable 10/16/18 07:07 Seg Neutrophils # 4.0 K/mm3 (1.8-7.7) 10/15/18 05:57 Seg Neutrophils # Man 3.0 K/mm3 (1.8-7.7) 10/16/18 07:07 Band Neutrophils # 0.0 K/mm3 10/16/18 07:07 Lymphocytes # (Manual) 0.5 K/mm3 (1.2-5.4) L 10/16/18 07:07 Abs React Lymphs (Man) 0.0 K/mm3 10/16/18 07:07 Monocytes # (Manual) 0.7 K/mm3 (0.0-0.8) 10/16/18 07:07 Eosinophils # (Manual) 0.1 K/mm3 (0.0-0.4) 10/16/18 07:07 Basophils # (Manual) 0.0 K/mm3 (0.0-0.1) 10/16/18 07:07 Metamyelocytes # 0.0 K/mm3 10/16/18 07:07 Myelocytes # 0.0 K/mm3 10/16/18 07:07 Promyelocytes # 0.0 K/mm3 10/16/18 07:07 Blast Cells # 0.0 K/mm3 10/16/18 07:07 WBC Morphology Not Reportable 10/16/18 07:07 Hypersegmented Neuts Not Reportable 10/16/18 07:07 Hyposegmented Neuts Not Reportable 10/16/18 07:07 Hypogranular Neuts Not Reportable 10/16/18 07:07 Smudge Cells Not Reportable 10/16/18 07:07 Toxic Granulation Not Reportable 10/16/18 07:07 Toxic Vacuolation Not Reportable 10/16/18 07:07 Dohle Bodies Not Reportable 10/16/18 07:07 Pelger-Huet Anomaly Not Reportable 10/16/18 07:07 Ephraim Rods Not Reportable 10/16/18 07:07 Platelet Estimate Consistent w auto 10/16/18 07:07 Clumped Platelets Not Reportable 10/16/18 07:07 Plt Clumps, EDTA Not Reportable 10/16/18 07:07 Large Platelets Not Reportable 10/16/18 07:07 Giant Platelets Not Reportable 10/16/18 07:07 Platelet Satelliting Not Reportable 10/16/18 07:07 Plt Morphology Comment Not Reportable 10/16/18 07:07 RBC Morphology Not Reportable 10/16/18 07:07 Dimorphic RBCs Not Reportable 10/16/18 07:07 Polychromasia Not Reportable 10/16/18 07:07 Hypochromasia 1+ 10/16/18 07:07 Poikilocytosis 1+ 10/16/18 07:07 Anisocytosis Not Reportable 10/16/18 07:07 Microcytosis Few 10/16/18 07:07 Macrocytosis Not Reportable 10/16/18 07:07 Spherocytes Not Reportable 10/16/18 07:07 Pappenheimer Bodies Not Reportable 10/16/18 07:07 Sickle Cells Not Reportable 10/16/18 07:07 Target Cells Rare 10/16/18 07:07 Tear Drop Cells Not Reportable 10/16/18 07:07 Ovalocytes Few 10/16/18 07:07 Helmet Cells Not Reportable 10/16/18 07:07 Farmer-[place] Bodies Not Reportable 10/16/18 07:07 [place] Rings Not Reportable 10/16/18 07:07 [place] Cells Not Reportable 10/16/18 07:07 Bite Cells Not Reportable 10/16/18 07:07 Crenated Cell Not Reportable 10/16/18 07:07 Elliptocytes Not Reportable 10/16/18 07:07 Acanthocytes (Spur) Not Reportable 10/16/18 07:07 Rouleaux Not Reportable 10/16/18 07:07 Hemoglobin C Crystals Not Reportable 10/16/18 07:07 Schistocytes Few 10/16/18 07:07 Malaria parasites Not Reportable 10/16/18 07:07 Emanuel Bodies Not Reportable 10/16/18 07:07 Hem Pathologist Commnt No 10/16/18 07:07 Sodium 139 mmol/L (137-145) 10/16/18 07:07 Potassium 4.7 mmol/L (3.6-5.0) 10/16/18 07:07 Chloride 96.8 mmol/L (98-107) L 10/16/18 07:07 Carbon Dioxide 26 mmol/L (22-30) 10/16/18 07:07 Anion Gap 21 mmol/L 10/16/18 07:07 BUN 26 mg/dL (7-17) H 10/16/18 07:07 Creatinine 4.8 mg/dL (0.7-1.2) H 10/16/18 07:07 Estimated GFR 11 ml/min 10/16/18 07:07 BUN/Creatinine Ratio 5 % 10/16/18 07:07 Glucose 104 mg/dL (65-100) H 10/16/18 07:07 POC Glucose 91 (70-105) 10/17/18 12:07 Calcium 8.2 mg/dL (8.4-10.2) L 10/16/18 07:07 Troponin T 0.105 ng/mL (0.00-0.029) H* 10/14/18 19:50 Triglycerides 107 mg/dL (2-149) 10/14/18 09:17 Cholesterol 172 mg/dL (50-199) 10/14/18 09:17 LDL Cholesterol Direct 85 mg/dL (50-130) 10/14/18 09:17 HDL Cholesterol 70 mg/dL (40-59) H 10/14/18 09:17 Cholesterol/HDL Ratio 2.45 % 10/14/18 09:17
--- NOTE | 2018-10-17 16:51 | Progress Note ---
Assessment and Plan - Patient Problems (1) ESRD (end stage renal disease) on dialysis Current Visit: Yes Status: Acute Plan to address problem: Electrolytes are stable and no overt volume overload. Patient is tolerating dialysis. Continue per schedule on Tuesdays, and Thursday (2) Anemia in chronic kidney disease Current Visit: No Status: Acute Plan to address problem: Give Erythropoetin on dialysis. Follow-up hemoglobin (3) Chest pain Current Visit: Yes Status: Acute Plan to address problem: Patient with history of coronary artery disease and so this is concerning. Cardiology input appreciated. Since no further episodes of chest pain during dialysis yesterday, she should be okay to discharge from renal perspective (4) Hypertension associated with stage 5 chronic kidney disease due to type 2 diabetes mellitus Current Visit: No Status: Acute Plan to address problem: Followed blood pressure on current medications (5) Type 2 diabetes mellitus with diabetic nephropathy Current Visit: Yes Status: Acute Plan to address problem: Blood sugar management by primary attending (6) Cough Current Visit: Yes Status: Acute Plan to address problem: No sinus drainage. Possibly secondary to ANAND inhibitor. Would change patient to an angiotensin receptor nancy and follow-up. Subjective Date of service: 10/17/18 Principal diagnosis: ESRD Interval history: Patient seen lying in bed on dialysis. She has no complaints except for cough and loose bowel movements. Still has not had any chest pain since admission. She denies shortness of breath, nausea or vomiting. Objective - Exam Narrative Exam: Elderly -[place] female lying in bed in no acute distress HEENT: NCAT, pink oral mucous membrane Neck: Supple, no venous distention CVS: S1S2 RRR with no murmur, rub or gallop Chest: Clear to auscultation Abdomen: Protuberant, soft, nontender, no organomegaly, bowel sounds are present Extremities: No edema, right upper extremity AV fistula Neuro: Awake, alert no focal deficits - Vital Signs Vital signs: Vital Signs - 12hr 10/17/18 10/17/18 10/17/18 05:05 06:19 09:09 Temperature 98.1 F Pulse Rate 72 72 75 Respiratory 17 18 Rate Blood Pressure 121/62 119/53 O2 Sat by Pulse 95 98 Oximetry 10/17/18 10/17/18 10/17/18 09:12 09:13 10:15 Temperature 97.8 F Pulse Rate 76 Respiratory 18 Rate Blood Pressure O2 Sat by Pulse Oximetry 10/17/18 10/17/18 10/17/18 12:05 12:06 14:00 Temperature 98.2 F Pulse Rate 71 71 Respiratory 18 Rate Blood Pressure 107/50 O2 Sat by Pulse 98 Oximetry - Lab 10/16/18 07:07 10/16/18 07:07 Most recent lab results Calcium 8.2 mg/dL (8.4-10.2) L 10/16/18 07:07 Medications & Allergies - Medications Allergies/Adverse Reactions: Allergies phenytoin sodium [From Dilantin] Allergy (Verified 05/08/16 07:07) Anaphylaxis phenytoin sodium extended [From Dilantin] Allergy (Verified 05/08/16 07:07) Anaphylaxis Home Medications: Home Medications Medication Instructions Recorded Confirmed Last Taken Type Calcium Carb/Vit D3/Minerals 1 each PO BID #30 tablet 12/04/16 10/14/18 01/03/18 Rx [Caltrate Plus] 1 Aspirin EC [Aspirin Enteric Coated 81 mg PO QDAY #30 tablet. 07/26/17 10/14/18 01/03/18 Rx TAB] 81mg Lisinopril/Hydrochlorothiazide 1 tab PO BID 11/10/17 10/14/18 01/03/18 History [Zestoretic 20-12.5 mg] 1 Clopidogrel [Plavix] 75 mg PO QDAY #30 tablet 01/05/18 10/14/18 Unknown Rx Metoprolol [Lopressor TAB] 50 mg PO BID #60 tablet 01/05/18 10/14/18 Unknown Rx Carvedilol [Coreg] 3.125 mg PO BID 10/14/18 10/14/18 Unknown History Fe Fumarate/FA/Mv, Min Comb#15 1 tab PO QDAY 10/14/18 10/14/18 Unknown History [Hemocyte Plus] Furosemide [Lasix TAB] 40 mg PO QDAY 10/14/18 10/14/18 Unknown History Potassium Chloride [K-Dur] 20 meq PO QDAY 10/14/18 10/14/18 Unknown History Active Medications: Generic Name Dose Route Start Last Admin Trade Name Freq PRN Reason Stop Dose Admin Acetaminophen 650 mg 10/14/18 13:50 10/17/18 09:13 Tylenol PO 650 mg Q4H PRN Administration Pain MILD(1-3)/Fever >100.5/KEE Albuterol 2.5 mg 10/14/18 13:50 Proventil IH Q4HRT PRN Shortness Of Breath Aspirin 81 mg 10/15/18 10:00 10/16/18 09:13 Halfprin Ec PO 81 mg QDAY LUCIO Administration Clopidogrel Bisulfate 75 mg 10/15/18 10:00 10/17/18 09:13 Plavix PO 75 mg QDAY LUCIO Administration Epoetin Gilberto 10,000 unit 10/15/18 17:24 10/16/18 13:00 Procrit IV 10,000 unit ALHAJI PRN Administration hemodialysis Guaifenesin 600 mg 10/17/18 10:00 10/17/18 09:12 Mucinex Er PO 600 mg BID LUCIO Administration Heparin Sodium (Porcine) 1,000 unit 10/15/18 17:24 Heparin 10,000 Units/10 Ml IV ALHAJI PRN hemodialysis Heparin Sodium (Porcine) 5,000 unit 10/15/18 22:00 10/17/18 10:36 Heparin SUB-Q 5,000 unit Q12HR LUCIO Administration Sodium Chloride 100 mls @ 999 mls/hr 10/15/18 17:24 Nacl 0.9% IV ALHAJI PRN Hypotension Insulin Glargine 10 units 10/14/18 13:54 Lantus SUB-Q QHS PRN Hyperglycemia Insulin Human Lispro 10 unit 10/14/18 22:00 10/16/18 22:41 Humalog SUB-Q Not Given BID [facility] Lisinopril 20 mg 10/14/18 22:00 10/17/18 09:12 Zestril PO 20 mg BID LUCIO Administration Metoprolol Tartrate 50 mg 10/14/18 22:00 10/17/18 10:15 Lopressor PO 50 mg BID LUCIO Administration Morphine Sulfate 2 mg 10/14/18 13:50 Morphine IV Q4H PRN Pain, Moderate (4-6) Multivitamins/Minerals 1 each 10/14/18 22:00 10/17/18 09:12 Caltrate Plus PO 1 each BID LUCIO Administration Nitroglycerin 0.4 mg 10/14/18 13:50 Nitrostat SL Q5M PRN Chest Pain Ondansetron HCl 4 mg 10/14/18 13:50 Zofran IV Q8H PRN Nausea And Vomiting Pravastatin Sodium 20 mg 10/14/18 22:00 10/16/18 22:26 Pravachol PO 20 mg QHS LUCIO Administration Sodium Chloride 10 ml 10/14/18 22:00 10/17/18 09:16 Sodium Chloride Flush Syringe 10 Ml IV 10 ml BID LUCIO Administration Sodium Chloride 10 ml 10/14/18 13:50 10/16/18 09:14 Sodium Chloride Flush Syringe 10 Ml IV 10 ml PRN PRN Administration LINE FLUSH Sodium Chloride 10 ml 10/14/18 13:50 Sodium Chloride Flush Syringe 10 Ml IV PRN PRN LINE FLUSH
[2018-10-17] MEDS: COZAAR PO SCH (22:00)
[2018-10-17] MEDS: PRAVACHOL PO SCH (22:00)
[2018-10-18] MEDS: SODIUM CHLORIDE FLUSH SYRINGE 10 ML IV SCH ×3 (07:26→12:03)
[2018-10-18 08:31] VITALS: BP 137/65
--- NOTE | 2018-10-18 08:58 | Discharge Summary ---
Providers - Providers Date of Admission: 10/14/18 13:50 Attending physician: RAMONITA GRAHAM MD 10/14/18 Consult to Cardiac Rehabilitation [CONS] Routine Reason For Exam: Phase I 10/14/18 13:51 Consult to Cardiology [CONS] Routine Consulting Provider: MATTY LUCAS Reason For Exam: chest pain 10/14/18 14:50 Consult to Physician [CONS] Routine Comment: Consulting Provider: LY RUDOLPH Physician Instructions: Reason For Exam: esrd 10/17/18 18:33 Consult to Wound/ET Nurse [CONS] Stat Reason For Exam: wound eval Primary care physician: TRAVERSE ROD ASSEMBLER Hospitalization Condition: Fair Hospital course: 78-year-old female patient with end-stage renal disease, coronary artery disease status post PCI, diabetes mellitus,hypertension, peripheral vascular disease developed chest pain during dialysis, admitted for further evaluation and management -She was seen by cardiology, who reported that she had recent cardiac cath with bare metal stent 8 months ago for napkin ring stenosis, medical management was recommended -Her meds were optimized for chronic conditions, given EF of 15%, ICD was offered, but patient refused -patient counseled the importance of adhering to the treatment plan Diagnoses Chest pain, likely due to chronic CAD CHF, dilated cardiomyopathy EF of 15% ESRD on HD Hypertension Hyperlipidemia Type 2 diabetes Medical nonadherence --Chest pain; continue current cardiac medications Procedures cardiac enzymes, EKG, cardiology evaluation noted and appreciated; coronary artery disease status post PCI December 2017 --Hypertension; Disposition: DC-01 TO HOME OR SELFCARE Time spent for discharge: 33 mins Core Measure Documentation - Palliative Care Palliative Care/ Comfort Measures: Not Applicable - Core Measures Any of the following diagnoses?: heart failure - Heart Failure Discharge Requirements ANAND/ARB for LVSD if EF <40%: Yes Beta nancy at discharge: Yes Exam - Constitutional Vitals: Temp Pulse Resp BP Pulse Ox 98.2 F 81 18 137/65 98 10/18/18 08:31 10/18/18 08:28 10/18/18 08:28 10/18/18 08:28 10/18/18 08:28 General appearance: Present: no acute distress, well-nourished - EENT Eyes: Present: PERRL ENT: hearing intact, clear oral mucosa - Neck Neck: Present: supple, normal ROM - Respiratory Respiratory effort: normal Respiratory: bilateral: CTA - Cardiovascular Heart Sounds: Present: S1 & S2. Absent: rub, click - Extremities Extremities: pulses symmetrical, No edema Peripheral Pulses: within normal limits - Abdominal General gastrointestinal: Present: soft, non-tender, non-distended, normal bowel sounds Female genitourinary: Present: normal - Integumentary Integumentary: Present: clear, warm, dry - Musculoskeletal Musculoskeletal: gait normal, strength equal bilaterally - Psychiatric Psychiatric: appropriate mood/affect, intact judgment & insight - Neurologic Neurologic: CNII-XII intact, moves all extremities Plan Follow up with: PRIMARY CARE,MD [Primary Care Provider] - 3-5 Days Prescriptions: RX: Pravastatin [Pravachol] 20 mg PO QHS #30 tablet RX: Losartan [Cozaar] 100 mg PO DAILY 30 Days tablet
[2018-10-18] MEDS: HumaLOG SUB-Q SCH (10:00)
[2018-10-18] MEDS: PLAVIX PO SCH (10:21)
[2018-10-18] MEDS: MUCINEX ER PO SCH (10:21)
[2018-10-18] MEDS: COZAAR PO SCH (10:21)
[2018-10-18] MEDS: CALTRATE PLUS PO SCH (10:21)
[2018-10-18] MEDS: HEPARIN SUB-Q SCH (10:21)
[2018-10-18] MEDS: HALFPRIN EC PO SCH (10:22)
[2018-10-18] MEDS: LOPRESSOR PO SCH (10:22)
[2018-10-18] MEDS: SODIUM CHLORIDE FLUSH SYRINGE 10 ML IV PRN (10:22)
--- NOTE | 2018-10-18 11:26 | Progress Note ---
Addendum entered and electronically signed by MATTY LUCAS MD 10/18/18 13:57: Medical therapy for coronary artery disease and nonischemic cardiomyopathy. Original Note: Assessment and Plan Chest pain: patient declines further cardiac testing. End stage renal disease on dialysis Dilated cardiomyopathy, EF 15% Patient declined outpatient ICD evaluation. Coronary artery disease status post PCI of the proximal LAD using a BMS done December 2017. Hx of PAD Chronic hypertesnion Hyperlipidemia Diabetes Plan: Continue medical management for coronary artery disease and ischemic cardiomyopathy. Follow up with [facility] as scheduled. Subjective Date of service: 10/18/18 Principal diagnosis: ESRD Interval history: Patient is resting in bed comfortably. Objective Vital Signs Temp Pulse Pulse Resp BP Pulse Ox 10/18/18 10:00 81 18 98 10/18/18 08:31 98.2 F 10/18/18 08:28 81 18 137/65 98 10/18/18 05:42 98.7 F 78 17 143/63 96 10/18/18 01:00 67 10/17/18 19:52 98.5 F 71 17 118/57 98 10/17/18 17:57 71 10/17/18 16:52 97.9 F 10/17/18 16:50 71 18 126/59 97 10/17/18 14:00 71 10/17/18 12:06 71 18 107/50 98 10/17/18 12:05 98.2 F - Physical Examination General: No Apparent Distress HEENT: Positive: PERRL Cardiac: Positive: Reg Rate and Rhythm Lungs: Positive: Decreased Breath Sounds Neuro: Positive: Grossly Intact Extremities: Absent: edema
== END 2018-10-18 15:05 | disposition home or self-care (01) | DRG 302 ==
LOC: ED 08:42 → 4A 13:50
PROVIDERS: ADMIT Internal Medicine; ATTEND Internal Medicine
PROC: 5A1D70Z Performance of Urinary Filtration, Intermittent, Less than 6 Hours Per Day (ICD-10-PCS; principal; 2018-10-16)
DX: I25.10 Atherosclerotic heart disease of native coronary artery without angina pectoris (principal); N18.6 End stage renal disease; I13.2 Hypertensive heart and chronic kidney disease with heart failure and with stage 5 chronic kidney disease, or end stage renal disease; I42.0 Dilated cardiomyopathy; E87.8 Other disorders of electrolyte and fluid balance, not elsewhere classified; E11.51 Type 2 diabetes mellitus with diabetic peripheral angiopathy without gangrene; E78.5 Hyperlipidemia, unspecified; D63.1 Anemia in chronic kidney disease; E11.21 Type 2 diabetes mellitus with diabetic nephropathy; I50.9 Heart failure, unspecified; E11.22 Type 2 diabetes mellitus with diabetic chronic kidney disease; Z99.2 Dependence on renal dialysis; Z86.73 Personal history of transient ischemic attack (TIA), and cerebral infarction without residual deficits; Z82.49 Family history of ischemic heart disease and other diseases of the circulatory system; Z95.828 Presence of other vascular implants and grafts; Z88.8 Allergy status to other drugs, medicaments and biological substances; Z79.82 Long term (current) use of aspirin; Z79.4 Long term (current) use of insulin; Z95.5 Presence of coronary angioplasty implant and graft; Z87.442 Personal history of urinary calculi; Z89.422 Acquired absence of other left toe(s); Z91.14 Patient's other noncompliance with medication regimen; Z71.89 Other specified counseling
CPT/HCPCS: 36415; 80048; 80061; 82962; 84484; 85007; 85025; 93005; 93010; G0378; A9270-GY; J0885; J1644; J7030

== ENCOUNTER 2019-01-10 09:43 | Outpatient (CLI) | payer MEDICARE ==
[2019-01-10] MEDS ORDERED: XYLOCAINE TOPICAL 4% TP ONE (10:30)
[2019-01-11] MEDS ORDERED: AD OINTMENT TP SCH (10:30)
== END 2019-01-10 09:44 | disposition home or self-care (01) ==
LOC: WOUND 09:43
PROVIDERS: ATTEND Surgery
DX: E11.621 Type 2 diabetes mellitus with foot ulcer (principal); L97.521 Non-pressure chronic ulcer of other part of left foot limited to breakdown of skin; L84 Corns and callosities; E11.622 Type 2 diabetes mellitus with other skin ulcer; L97.312 Non-pressure chronic ulcer of right ankle with fat layer exposed; I10 Essential (primary) hypertension; Z89.422 Acquired absence of other left toe(s); Z95.5 Presence of coronary angioplasty implant and graft
CPT/HCPCS: 11042; G0463; 99205

== ENCOUNTER 2019-01-18 09:55 | Outpatient (CLI) | payer MEDICARE ==
[2019-01-18] MEDS ORDERED: SILVER NITRATE TP ONE (10:30)
[2019-01-18] MEDS ORDERED: XYLOCAINE TOPICAL 4% TP ONE (10:30)
== END 2019-01-18 09:56 | disposition home or self-care (01) ==
LOC: WOUND 09:55
PROVIDERS: ATTEND Surgery
DX: E11.621 Type 2 diabetes mellitus with foot ulcer (principal); L97.521 Non-pressure chronic ulcer of other part of left foot limited to breakdown of skin; E11.622 Type 2 diabetes mellitus with other skin ulcer; L97.312 Non-pressure chronic ulcer of right ankle with fat layer exposed; L84 Corns and callosities; I10 Essential (primary) hypertension; Z89.422 Acquired absence of other left toe(s); Z95.5 Presence of coronary angioplasty implant and graft

== ENCOUNTER 2019-01-22 09:17 | Inpatient (IN) | payer MEDICARE ==
--- NOTE | 2019-01-22 09:25 | Emergency Department Report ---
ED General Adult HPI - General Stated complaint: CARDIAC ARREST Time Seen by Provider: 01/22/19 09:24 - History of Present Illness Initial comments: Patient is a 78-year-old female past medical history of end-stage renal disease who presents status post cardiac arrest. Patient regained pulses in the field and was intubated. History is limited due to acuity of patient's condition. - Related Data Home Medications Medication Instructions Recorded Confirmed Last Taken Ferrous Sulfate [Iron 325 MG] 325 mg PO DAILY 01/04/19 01/22/19 01/03/19 Previous Rx's Medication Instructions Recorded Last Taken Type Aspirin EC 81 mg PO QDAY #30 tablet. 01/07/19 Unknown Rx Clopidogrel [Plavix] 75 mg PO QDAY #30 tablet 01/07/19 Unknown Rx Losartan [Cozaar] 100 mg PO DAILY 30 Days #30 tablet 01/07/19 Unknown Rx Metoprolol [Lopressor TAB] 50 mg PO BID #60 tablet 01/07/19 Unknown Rx Pravastatin [Pravachol] 20 mg PO QHS #30 tablet 01/07/19 Unknown Rx Allergies Allergy/AdvReac Type Severity Reaction Status Date / Time phenytoin sodium Allergy Anaphylaxis Verified 05/08/16 07:07 [From Dilantin] phenytoin sodium extended Allergy Anaphylaxis Verified 05/08/16 07:07 [From Dilantin] ED Review of Systems ROS: Stated complaint: CARDIAC ARREST Other details as noted in HPI Comment: Unobtainable due to pts medical conditions Constitutional: denies: chills, fever Eyes: denies: eye pain, eye discharge, vision change ENT: denies: ear pain, throat pain Respiratory: denies: cough, shortness of breath, wheezing Cardiovascular: denies: chest pain, palpitations Endocrine: no symptoms reported Gastrointestinal: denies: abdominal pain, nausea, diarrhea Genitourinary: denies: urgency, dysuria, discharge Musculoskeletal: denies: back pain, joint swelling, arthralgia Skin: denies: rash, lesions Neurological: denies: headache, weakness, paresthesias Psychiatric: denies: anxiety, depression Hematological/Lymphatic: denies: easy bleeding, easy bruising ED Past Medical Hx - Past Medical History Hx Hypertension: Yes (pul htn) Hx Heart Attack/AMI: No Hx Congestive Heart Failure: Yes Hx Diabetes: Yes Hx Deep Vein Thrombosis: No Hx Liver Disease: No Hx Renal Disease: Yes (Dialysis [id number]) Hx Sickle Cell Disease: No Hx Arthritis: No Hx Seizures: Yes Hx Kidney Stones: Yes Hx Asthma: No Hx COPD: No Hx Dementia: No Hx HIV: No Additional medical history: poor circulation left leg, Pulmonary HTN. vitamen d defficency - Surgical History Hx Coronary Stent: No Hx Open Heart Surgery: No Hx Pacemaker: No Hx Internal Defibrillator: No Hx Cholecystectomy: No Hx Appendectomy: No Hx Breast Surgery: No Additional Surgical History: L foot amputation of toes; AV Fistula Upper R arm, PAD with lower extremity bypass - Social History Smoking Status: Never Smoker - Medications Home Medications: Home Medications Medication Instructions Recorded Confirmed Last Taken Type Ferrous Sulfate [Iron 325 MG] 325 mg PO DAILY 01/04/19 01/22/19 01/03/19 History Aspirin EC 81 mg PO QDAY #30 tablet. 01/07/19 01/22/19 Unknown Rx Clopidogrel [Plavix] 75 mg PO QDAY #30 tablet 01/07/19 01/22/19 Unknown Rx Losartan [Cozaar] 100 mg PO DAILY 30 Days #30 tablet 01/07/19 01/22/19 Unknown Rx Metoprolol [Lopressor TAB] 50 mg PO BID #60 tablet 01/07/19 01/22/19 Unknown Rx Pravastatin [Pravachol] 20 mg PO QHS #30 tablet 01/07/19 01/22/19 Unknown Rx ED Course Vital Signs 01/22/19 01/22/19 01/22/19 09:20 09:39 09:49 Temperature 92.4 F L Pulse Rate 102 H 87 85 Respiratory 12 14 Rate Blood Pressure 150/96 139/78 164/93 O2 Sat by Pulse 99 99 99 Oximetry ED Medical Decision Making - Lab Data Result diagrams: 01/22/19 Unknown 01/22/19 Unknown Lab Results 01/22/19 01/22/19 01/22/19 Range/Units 11:09 Unknown Unknown WBC 7.1 (4.5-11.0) K/mm3 RBC 4.19 (3.65-5.03) M/mm3 Hgb 11.0 (10.1-14.3) gm/dl Hct 34.3 (30.3-42.9) % MCV 82 (79-97) fl MCH 26 L (28-32) pg MCHC 32 (30-34) % RDW 17.3 H (13.2-15.2) % Plt Count 172 (140-440) K/mm3 Add Manual Diff Complete Total Counted 100 Seg Neuts % (Manual) 60.0 (40.0-70.0) % Band Neutrophils % 1.0 % Lymphocytes % (Manual) 25.0 (13.4-35.0) % Reactive Lymphs % (Man) 0 % Monocytes % (Manual) 11.0 H (0.0-7.3) % Eosinophils % (Manual) 0 (0.0-4.3) % Basophils % (Manual) 0 (0.0-1.8) % Metamyelocytes % 3.0 % Myelocytes % 0 % Promyelocytes % 0 % Blast Cells % 0 % Nucleated RBC % Not Reportable Seg Neutrophils # Man 4.3 (1.8-7.7) K/mm3 Band Neutrophils # 0.1 K/mm3 Lymphocytes # (Manual) 1.8 (1.2-5.4) K/mm3 Abs React Lymphs (Man) 0.0 K/mm3 Monocytes # (Manual) 0.8 (0.0-0.8) K/mm3 Eosinophils # (Manual) 0.0 (0.0-0.4) K/mm3 Basophils # (Manual) 0.0 (0.0-0.1) K/mm3 Metamyelocytes # 0.2 K/mm3 Myelocytes # 0.0 K/mm3 Promyelocytes # 0.0 K/mm3 Blast Cells # 0.0 K/mm3 WBC Morphology Not Reportable Hypersegmented Neuts Not Reportable Hyposegmented Neuts Not Reportable Hypogranular Neuts Not Reportable Smudge Cells Not Reportable Toxic Granulation Not Reportable Toxic Vacuolation Not Reportable Dohle Bodies Not Reportable Pelger-Huet Anomaly Not Reportable Ephraim Rods Not Reportable Platelet Estimate Consistent w auto Clumped Platelets Not Reportable Plt Clumps, EDTA Not Reportable Large Platelets Few Giant Platelets Not Reportable Platelet Satelliting Not Reportable Plt Morphology Comment Not Reportable RBC Morphology Not Reportable Dimorphic RBCs Not Reportable Polychromasia Not Reportable Hypochromasia Not Reportable Poikilocytosis Not Reportable Anisocytosis Not Reportable Microcytosis Not Reportable Macrocytosis Not Reportable Spherocytes Not Reportable Pappenheimer Bodies Not Reportable Sickle Cells Not Reportable Target Cells Not Reportable Tear Drop Cells Few Ovalocytes Not Reportable Helmet Cells Not Reportable [place] Bodies Not Reportable [place] Rings Not Reportable Henry Cells Not Reportable Bite Cells Not Reportable Crenated Cell Not Reportable Elliptocytes Few Acanthocytes (Spur) Not Reportable Rouleaux Not Reportable Hemoglobin C Crystals Not Reportable Schistocytes Rare Malaria parasites Not Reportable Emanuel Bodies Not Reportable Hem Pathologist Commnt No POC ABG pH 7.446 (7.35-7.45) POC ABG pCO2 42.6 (35-45) POC ABG pO2 207 H (80-105) POC ABG HCO3 29.4 (22-26 mml/L) POC ABG Total CO2 31 (23-27mmol/L) POC ABG O2 Sat 100 POC ABG Base Excess 5 ((-2) - (+3)mmol/L) FiO2 80 % Sodium 138 (137-145) mmol/L Potassium 4.3 (3.6-5.0) mmol/L Chloride 96.2 L (98-107) mmol/L Carbon Dioxide 27 (22-30) mmol/L Anion Gap 19 mmol/L BUN 20 H (7-17) mg/dL Creatinine 2.4 H (0.7-1.2) mg/dL Estimated GFR 24 ml/min BUN/Creatinine Ratio 8 % Glucose 150 H (65-100) mg/dL Calcium 8.8 (8.4-10.2) mg/dL Total Bilirubin 0.60 (0.1-1.2) mg/dL AST 109 H (5-40) units/L ALT 63 H (7-56) units/L Alkaline Phosphatase 227 H (35-129) units/L Troponin T 0.133 H* (0.00-0.029) ng/mL Total Protein 7.0 (6.3-8.2) g/dL Albumin 3.8 L (3.9-5) g/dL Albumin/Globulin Ratio 1.2 % Triglycerides 111 (2-149) mg/dL Cholesterol 153 (50-199) mg/dL LDL Cholesterol Direct 79 (50-130) mg/dL HDL Cholesterol 62 H (40-59) mg/dL Cholesterol/HDL Ratio 2.46 % - EKG Data -: EKG Interpreted by Me - EKG Data 01/22/19 12:11 EKG shows normal sinus rhythm no ST segment elevation moderate T-wave abnormality no axis deviation. Impression abnormal EKG - Radiology Data Radiology results: report reviewed Chest x-ray: Shows bilateral pneumonia ET tube is 4 cm above the mitul. - Medical Decision Making Cdx: Cardiac arrest 2/2 electrolyte abnormality ddx: NSTEMI, PNA, SEPSIS I will give antibiotics, blood work, abg, IV sedation and place patient on ventilator Patient has a life threatening condition and will need to be admitted to the hospital. Critical Care Time: Yes Critical care time in (mins) excluding proc time.: 60 Critical care attestation.: If time is entered above; I have spent that time in minutes in the direct care of this critically ill patient, excluding procedure time. Critical Care Time: Critical care time spent with patient's family and involved directly with patient care 60 minutes ED Disposition Clinical Impression: Cardiac arrest, ESRD needing dialysis Acute respiratory failure Qualifiers: Respiratory failure complication: unspecified whether with hypoxia or hypercapn ia Qualified Code(s): J96.00 - Acute respiratory failure, unspecified whether with hypoxia or hypercapnia Diabetes mellitus type 2, uncontrolled Qualifiers: Glycemic state: with hyperglycemia Qualified Code(s): E11.65 - Type 2 diabetes mellitus with hyperglycemia Sepsis Qualifiers: Sepsis type: sepsis due to unspecified organism Qualified Code(s): A41.9 - Sepsis, unspecified organism Pneumonia Qualifiers: Pneumonia type: due to unspecified organism Laterality: bilateral Lung location: upper lobe of lung Qualified Code(s): J18.1 - Lobar pneumonia, unspecified organism Disposition: OP ADMIT IP TO THIS HOSP Is pt being admited?: Yes Does the pt Need Aspirin: No Condition: Stable
[2019-01-22] MEDS ORDERED: VERSED IV PRN (09:33)
[2019-01-22] MEDS ORDERED: VASELINE LIP THERAPY TP PRN (09:33)
[2019-01-22] MEDS ORDERED: SUBLIMAZE IV PRN (09:33)
[2019-01-22] MEDS ORDERED: ARTIFICIAL TEARS OPHTH OINT OU PRN (09:33)
[2019-01-22] MEDS ORDERED: VERSED IV ONE (09:35)
[2019-01-22] MEDS ORDERED: VERSED IV NR ×2 (10:00)
[2019-01-22 10:11] LABS: Albumin 3.8 g/dL (3.9-5); Calcium 8.8 mg/dL (8.4-10.2)
--- NOTE | 2019-01-22 10:12 | XRay Report ---
PROCEDURE: XR CHEST 1V AP TECHNIQUE: Chest, portable supine HISTORY: ETT placement COMPARISON: 01/05/2018 FINDINGS: Endotracheal tube tip is 4 cm above the mitul. There is bilateral upper lobe infiltrates, right more than left. Cardiomegaly is unchanged. There is no pleural effusion or pneumothorax seen. IMPRESSION: Bilateral upper lobe infiltrates, right worse than left. Endotracheal tube tip is 4 cm above mitul. This document is electronically signed by Amelia De Dios MD., January 22 2019 11:10:34 AM ET
[2019-01-22 10:33] LABS: Hematocrit 34.3 % (30.3-42.9); Mean Corpuscular HGB Conc 32 % (30-34); Mean Corpuscular Volume 82 fl (79-97); Platelet Count 172 K/mm3 (140-440); Red Blood Count 4.19 M/mm3 (3.65-5.03); Red Cell Distribution Width 17.3 % (13.2-15.2)
[2019-01-22 10:59] LABS: Chol/HDL Ratio 2.46 %
[2019-01-22] MEDS ORDERED: MIDAZOLAM 100 MG in NACL 0.9% 80 ML IV SCH (11:00)
[2019-01-22] MEDS ORDERED: CALCIUM GLUCONATE 1,000 MG in NACL 0.9% 100 ML IV ONE (11:00)
[2019-01-22 11:05] LABS: Band Neutrophils # (Manual) 0.1 K/mm3; Basophils % (Manual) 0 % (0.0-1.8); Eosinophils % (Manual) 0 % (0.0-4.3); Total Cells Counted 100
[2019-01-22 11:07] LABS: Large Platelets Few; Platelet Estimate Consistent w Auto; Schistocytes Rare; Tear Drop Cells Few
[2019-01-22] MEDS ORDERED: ASPIRIN PR ONE (11:43)
[2019-01-22] MEDS ORDERED: VANCOMYCIN PHARMACY TO DOSE IV SCH (12:00)
--- NOTE | 2019-01-22 12:21 | History and Physical Report ---
History of Present Illness Chief complaint: Unresponsive History of present illness: 78 YO Female with ESRD on HD (T,R,Sa ), DM, HTN, CVA, PVD, Pulmonary HTN presents to ED for evaluation. Pt is unresponsive and unable to provide history. History provided by family who is at bedside during exam and interview. As per matilde manzanares, the patient was in her usual state of health and went to her routine scheduled dialysis session today. Pt was undergoing dialysis today and experienced a sudden onset of loss of consciousness, and was found to be in cardiac arrest. EMS notified, and upon arrival the patient was found to be in distress and in cardiac arrest. Pt treated IAW ACLS protocol with return of perfusing rhythm. Pt intubated and transported to [facility]. Pt seen and evaluated in ED and found to have Acute Respiratory Failure S/P Cardiac Arrest, ESRD, as well as Pneumonia. Pt family denies reports of fever, chills, palpiations, NVD, Trauma, BRBPR, Productive cough, skin rash, unilateral leg swelling, calf pain, prolonged travel/immobility, individual/family history of DVT/PE. Pt admitted to ICU and initiated on Pneumonia protocol. Cardiology, Pulmonary and Nephrology teams consulted in ED. Prior admission on 01/04/19 reviewed. All listed medication reconciled at time of admission. Past History Past Medical History: diabetes, ESRD, PVD, stroke, other (Pulmonary HTN) Past Surgical History: Other (AV Fistula, Foot Surgery, femoral Bypass) Social history: , lives with family. denies: smoking, alcohol abuse, prescription drug abuse Family history: CAD, hypertension Medications and Allergies Allergies Allergy/AdvReac Type Severity Reaction Status Date / Time phenytoin sodium Allergy Anaphylaxis Verified 05/08/16 07:07 [From Dilantin] phenytoin sodium extended Allergy Anaphylaxis Verified 05/08/16 07:07 [From Dilantin] Home Medications Medication Instructions Recorded Confirmed Last Taken Type Ferrous Sulfate [Iron 325 MG] 325 mg PO DAILY 01/04/19 01/22/19 01/03/19 History Aspirin EC 81 mg PO QDAY #30 tablet. 01/07/19 01/22/19 Unknown Rx Clopidogrel [Plavix] 75 mg PO QDAY #30 tablet 01/07/19 01/22/19 Unknown Rx Losartan [Cozaar] 100 mg PO DAILY 30 Days #30 tablet 01/07/19 01/22/19 Unknown Rx Metoprolol [Lopressor TAB] 50 mg PO BID #60 tablet 01/07/19 01/22/19 Unknown Rx Pravastatin [Pravachol] 20 mg PO QHS #30 tablet 01/07/19 01/22/19 Unknown Rx Active Meds: Active Medications Fentanyl (Sublimaze) 50 mcg IV Q10MIN PRN PRN Reason: ANALGESIA Hydrophilic Ointment (Vaseline Lip Therapy) 1 applic TP Q2HR PRN PRN Reason: Dry Lips Fentanyl Citrate (Fentanyl Drip Premix) 2,000 mcg in 100 mls @ 3.175 mls/hr IV TITR LUCIO; Protocol Midazolam HCl 100 mg/ Sodium (Chloride) 100 mls @ 2 mls/hr IV TITR LUCIO; Protocol Last Titration: 01/22/19 11:30 Dose: 3 mg/hr, 3 mls/hr Documented by: Vancomycin HCl 1,250 mg/ (Sodium Chloride) 275 mls @ 183.333 mls/hr IV ONCE ONE; Protocol Stop: 01/22/19 14:29 Cefepime HCl (Maxipime/Ns 1 Gm/100 Ml) 1 gm in 100 mls @ 200 mls/hr IV Q12H LUCIO Midazolam HCl (Versed) 5 mg IV ONCE NR Stop: 01/22/19 23:59 Last Admin: 01/22/19 09:40 Dose: 5 mg Documented by: Midazolam HCl (Versed) 2 mg IV Q10MIN PRN PRN Reason: Sedation Midazolam HCl (Versed) 5 mg IV ONCE NR Stop: 01/22/19 23:59 Multi-Ingred Cream/Lotion/Oil/Oint (Artificial Tears Ophth Oint) 1 applic OU Q4HR PRN PRN Reason: Dry Eye(s) Review of Systems ROS unobtainable: due to endotracheal tube, due to mental status Exam - Constitutional Vitals: Temp Pulse Resp BP Pulse Ox 92.4 F L 85 14 164/93 99 01/22/19 09:20 01/22/19 09:49 01/22/19 09:49 01/22/19 09:49 01/22/19 09:49 General appearance: Present: severe distress - EENT Eyes: Present: miosis - Neck Neck: Present: supple, normal ROM - Respiratory Respiratory effort: labored Respiratory: bilateral: diminished, rhonchi - Cardiovascular Heart Sounds: Present: S1 & S2. Absent: rub, click - Extremities Extremities: pulses symmetrical Extremity abnormal: edema Peripheral Pulses: within normal limits - Abdominal General gastrointestinal: Present: soft, non-tender, non-distended, normal bowel sounds Female genitourinary: Present: normal - Integumentary Integumentary: Present: clear, dry, clammy, decreased turgor - Musculoskeletal Musculoskeletal: generalized weakness - Psychiatric Psychiatric: no appropriate mood/affect, no intact judgment & insight, no memory intact - Neurologic Neurologic: CNII-XII intact, no moves all extremities, no gait normal Results - Labs CBC & Chem 7: 01/22/19 Unknown 01/22/19 Unknown Labs: Abnormal lab results 01/22/19 01/22/19 01/22/19 Range/Units 11:09 Unknown Unknown MCH 26 L (28-32) pg RDW 17.3 H (13.2-15.2) % Monocytes % (Manual) 11.0 H (0.0-7.3) % POC ABG pO2 207 H (80-105) Chloride 96.2 L (98-107) mmol/L BUN 20 H (7-17) mg/dL Creatinine 2.4 H (0.7-1.2) mg/dL Glucose 150 H (65-100) mg/dL AST 109 H (5-40) units/L ALT 63 H (7-56) units/L Alkaline Phosphatase 227 H (35-129) units/L Troponin T 0.133 H* (0.00-0.029) ng/mL Albumin 3.8 L (3.9-5) g/dL HDL Cholesterol 62 H (40-59) mg/dL Assessment and Plan - Patient Problems (1) Acute respiratory failure Current Visit: Yes Status: Acute Qualifiers: Respiratory failure complication: unspecified whether with hypoxia or hypercapnia Qualified Code(s): J96.00 - Acute respiratory failure, unspecified whether with hypoxia or hypercapnia Plan to address problem: Admit to ICU: Pt intubated on vent support, wean vent as tolerated, chest x ray, ABG, sedation holiday, pulmonary team consulted in ED, The high probability of a clinically significant, sudden or life threatening deterioration of the [Cardiac, pulmonary, renal, ] system(s) required my full and direct attention, intervention and personal management. The aggregate critical care time was [65] minutes. This time is in addition to time spent performing reported procedures but includes the following: [x] Data Review and interpretation [x] Patient assessment and monitoring of vital signs [x] Documentation [x] Medication orders and management 35 minutes additional time spent discussing care plan and prognosis with family. (2) Cardiac arrest Current Visit: Yes Status: Acute Plan to address problem: S/P ACLS with return of perfusing rhythm, cardiology consulted. (3) ESRD needing dialysis Current Visit: Yes Status: Acute Plan to address problem: Nephrology consulted in ED, monitor uop q shift, daily weight, avoid nephrotoxic agents. (4) Pneumonia Current Visit: Yes Status: Acute Qualifiers: Pneumonia type: due to unspecified organism Laterality: bilateral Lung location: upper lobe of lung Qualified Code(s): J18.1 - Lobar pneumonia, unspecified organism Plan to address problem: Pneumonia protocol, IV antibiotic, blood cultures, CBC, Chest xray, supplemental oxygen, (5) HTN (hypertension) Current Visit: Yes Status: Acute Qualifiers: Hypertension type: essential hypertension Qualified Code(s): I10 - Essential (primary) hypertension Plan to address problem: Monitor BP q shift, Pt currently hypotensive S/P cardiac arrest. (6) Diabetes Current Visit: Yes Status: Acute Plan to address problem: ADA diet, when/if awake alert, insulin, accu check,hypoglycemia protocol (7) Pulmonary hypertension Current Visit: Yes Status: Acute Plan to address problem: supportive care, continue current care, wean vent as tolerated, (8) DVT prophylaxis Current Visit: No Status: Acute Plan to address problem: SCD to BLE while in bed, prophylactic heparin
[2019-01-22] MEDS ORDERED: PROVENTIL IH PRN (12:23)
[2019-01-22] MEDS: MAXIPIME/NS 1 GM/100 ML 1 GM/100 ML BAG IV SCH (12:36)
[2019-01-22] MEDS: fentaNYL DRIP Premix 2,000 MCG/100 ML BAG IV SCH (12:50)
[2019-01-22] MEDS ORDERED: VANCOMYCIN 1,250 MG in NACL 0.9% 250ML 250 ML IV ONE (13:00)
[2019-01-22] MEDS ORDERED: MAXIPIME/NS 2 GM/100 ML 2 GM/100 ML BAG IV SCH ×2 (14:00)
--- NOTE | 2019-01-22 14:47 | Consultation ---
History of Present Illness Consult date: 01/22/19 Requesting physician: GARETH WILHELM Reason for consult: other (Acute Hypoxemic Resp failure on MVS; S/P Cardiac Arrest) History of present illness: PULMONARY/CCM CONSULT NOTE (Full dictation # [id number]) Please see dictated notes for full details A&P: OOH Cardiac Arrest with [facility] [place] hypoxemic Resp failure on MVS Acute Pulmonary Edema possible occult pneumonia - continue full MVS but reduce set rate - ACS w/up per cardiology - empiric AB's - get CRP / lactate to aid clinical decision making - add GI prophylaxis - HD/UF for toxin and volume clearance - tylenol level and hepatitis panel re: elevated serum transaminases - flu & pneumovax per protocol ... thanks for the consult ... we will follow along Past History Past Medical History: diabetes, ESRD, PVD, stroke, other (Pulmonary HTN) Past Surgical History: Other (AV Fistula, Foot Surgery, femoral Bypass) Social history: , lives with family. denies: smoking, alcohol abuse, prescription drug abuse Family history: CAD, hypertension Medications and Allergies Allergies Allergy/AdvReac Type Severity Reaction Status Date / Time phenytoin sodium Allergy Anaphylaxis Verified 05/08/16 07:07 [From Dilantin] phenytoin sodium extended Allergy Anaphylaxis Verified 05/08/16 07:07 [From Dilantin] Home Medications Medication Instructions Recorded Confirmed Last Taken Type RX: Ferrous Sulfate [Iron 325 MG] 325 mg PO DAILY 01/04/19 01/22/19 01/03/19 History RX: Aspirin EC 81 mg PO QDAY #30 tablet. 01/07/19 01/22/19 Unknown Rx RX: Clopidogrel [Plavix] 75 mg PO QDAY #30 tablet 01/07/19 01/22/19 Unknown Rx RX: Losartan [Cozaar] 100 mg PO DAILY 30 Days #30 tablet 01/07/19 01/22/19 Unknown Rx RX: Metoprolol [Lopressor TAB] 50 mg PO BID #60 tablet 01/07/19 01/22/19 Unknown Rx RX: Pravastatin [Pravachol] 20 mg PO QHS #30 tablet 01/07/19 01/22/19 Unknown Rx Active Meds: Active Medications Albuterol (Proventil) 2.5 mg IH Q3H PRN PRN Reason: Shortness Of Breath Aspirin (Halfprin Ec) 81 mg PO QDAY [facility] Clopidogrel Bisulfate (Plavix) 75 mg PO QDAY [facility] Fentanyl (Sublimaze) 50 mcg IV Q10MIN PRN PRN Reason: ANALGESIA Ferrous Sulfate (Feosol) 325 mg PO DAILY [facility] Heparin Sodium (Porcine) (Heparin) 5,000 unit SUB-Q Q12HR [facility] Hydrophilic Ointment (Vaseline Lip Therapy) 1 applic TP Q2HR PRN PRN Reason: Dry Lips Fentanyl Citrate (Fentanyl Drip Premix) 2,000 mcg in 100 mls @ 3.175 mls/hr IV TITR [facility]; Protocol Last Admin: 01/22/19 12:50 Dose: 1 mcg/kg/hr, 3.175 mls/hr Documented by: Midazolam HCl 100 mg/ Sodium (Chloride) 100 mls @ 2 mls/hr IV TITR [facility]; Protocol Last Titration: 01/22/19 13:45 Dose: 2 mg/hr, 2 mls/hr Documented by: Cefepime HCl (Maxipime/Ns 1 Gm/100 Ml) 1 gm in 100 mls @ 200 mls/hr IV Q12H [facility] Last Admin: 01/22/19 12:36 Dose: 200 mls/hr Documented by: Midazolam HCl (Versed) 5 mg IV ONCE NR Stop: 01/22/19 23:59 Last Admin: 01/22/19 09:40 Dose: 5 mg Documented by: Midazolam HCl (Versed) 2 mg IV Q10MIN PRN PRN Reason: Sedation Midazolam HCl (Versed) 5 mg IV ONCE NR Stop: 01/22/19 23:59 Multi-Ingred Cream/Lotion/Oil/Oint (Artificial Tears Ophth Oint) 1 applic OU Q4HR PRN PRN Reason: Dry Eye(s) Pravastatin Sodium (Pravachol) 20 mg PO QHS [facility] Sodium Chloride (Sodium Chloride Flush Syringe 10 Ml) 10 ml IV BID [facility] Sodium Chloride (Sodium Chloride Flush Syringe 10 Ml) 10 ml IV PRN PRN PRN Reason: LINE FLUSH Physical Examination Vital signs: Vital Signs Temp Pulse Resp BP Pulse Ox 92.4 F L 102 H 12 150/96 99 01/22/19 09:20 01/22/19 09:20 01/22/19 09:20 01/22/19 09:20 01/22/19 09:20 Results - Laboratory Findings CBC and BMP: 01/22/19 Unknown 01/22/19 Unknown ABG POC ABG pH 7.446 (7.35-7.45) 01/22/19 11:09 POC ABG pCO2 42.6 (35-45) 01/22/19 11:09 POC ABG pO2 207 (80-105) H 01/22/19 11:09 POC ABG HCO3 29.4 (22-26 mml/L) 01/22/19 11:09 POC ABG Total CO2 31 (23-27mmol/L) 01/22/19 11:09 POC ABG O2 Sat 100 01/22/19 11:09 Abnormal lab findings: Abnormal Labs 01/22/19 01/22/19 01/22/19 11:09 Unknown Unknown MCH 26 L RDW 17.3 H Monocytes % (Manual) 11.0 H POC ABG pO2 207 H Chloride 96.2 L BUN 20 H Creatinine 2.4 H Glucose 150 H AST 109 H ALT 63 H Alkaline Phosphatase 227 H Troponin T 0.133 H* Albumin 3.8 L HDL Cholesterol 62 H
--- NOTE | 2019-01-22 16:25 | Consultation ---
PULMONARY CRITICAL CARE CONSULTATION CONSULTING PHYSICIAN: Linus Mireles MD REASON FOR CONSULTATION: Acute hypoxemic respiratory failure, on mechanical ventilatory support, status post cardiac arrest. CHIEF COMPLAINT AND HISTORY OF PRESENT ILLNESS: The patient is a 78-year-old -[place] female with past medical history significant amongst other things for a diagnosis of end-stage renal disease, on dialysis. She was brought into the Emergency Room unresponsive. She went to her scheduled dialysis session on the day of presentation, she experienced a sudden onset of loss of consciousness. She was found to be in cardiac arrest. She was treated with ACLS protocol, CPR, return of a perfusing rhythm. She was intubated and transferred to the ER. In the Emergency Room, she was found amongst other things diagnosed with pneumonia and was admitted to the hospital. We are asked to assist with management. Family had denied any prior illnesses. They denied fevers or chills. They denied nausea, vomiting, or diarrhea. They denied any trauma prior to presentation. Denied any obvious bleeding. No bright red blood per rectum. No hematemesis. No hemoptysis. They did also deny any productive cough or leg pain or swelling either unilaterally or bilaterally. When I stopped by to see her, she was on mechanical ventilator. She was riding the set rate, I believe at 16 per minute. She was able to respond appropriately when asked if she was in pain, she nodded her head, no. She also denied missing any prior dialysis sessions. This really is as much of the history of presentation as I have. The records suggest that she does not smoke. Remote history is unknown. PAST MEDICAL HISTORY: Again, end-stage renal disease, on dialysis; diabetes, peripheral vascular disease, history of cerebrovascular accident, history of pulmonary hypertension. PAST SURGICAL HISTORY: She has had AV fistula, I believe to the right upper extremity. She has had femoral bypass surgery and she has had some bypass surgery in great vessels in the chest. MEDICATIONS: She was on at the time I stopped by to see her were reviewed. Pertinent medications include the following: Albuterol 2.5 mg nebulized q.3 hours p.r.n. shortness of breath, aspirin 81 mg p.o. daily, cefepime 1 gram IV q.12 hours, Plavix 75 mg p.o. daily, fentanyl drip was going at 1 mcg/kg per hour, Feosol, ferrous sulfate 325 mg p.o. daily, heparin 5000 units subcutaneous q.12 hours. Versed, she received 5 mg dose of Versed and the drip was going at 2 mg per hour. Pravachol 20 mg p.o. at bedtime. Artificial tears q.4 hours to affected eyes p.r.n. ALLERGIES: DILANTIN. Nature of this allergy is unknown. DIET: Well-built thin lady. Acute weight loss or gain history is unknown. FAMILY AND SOCIAL HISTORY: Lives in the community. She is . She lives with family. No current alcohol, tobacco, or illicit drug use or abuse. Remote history is unknown. There is a family history of coronary artery disease and hypertension. REVIEW OF SYSTEMS: Difficult to obtain secondary to her medical and mental condition. Since she has been here, no gross hematochezia or melena, no gross hematuria, no hematemesis, no witnessed seizures. Review of systems otherwise as in the body of history above or unobtainable. PHYSICAL EXAMINATION: VITAL SIGNS: At presentation, she was hypothermic, temperature 92.4 degrees Fahrenheit rectally with a pulse of 102, respiratory rate of 12, blood pressure 150/96, O2 sats were 99%, inspired oxygen concentration was not recorded. When I stopped by to see her, O2 sats were 99% that was on the assist control mode of ventilation, tidal volume 400, set rate of 16, PEEP of 6, FiO2 55%. GENERAL: Elderly looking -[place] female. Normocephalic, atraumatic, on the mechanical ventilator with mildly increased respiratory effort at rest. HEAD, EYES, EARS, NOSE AND THROAT: She is anicteric. No conjunctival erythema. Oropharynx is moist. ET tube is taped at the lips around 23 cm. No gross jugular venous distention, no thyromegaly. LUNGS: Auscultation of both lung silva revealed bibasilar inspiratory rales and overall diminished bilateral breath sounds. No active wheezing. HEART: Heart sounds 1 and 2 are heard at the time of my evaluation, regular rate and rhythm with occasional PVCs and systolic murmur. ABDOMEN: Soft, flat. Bowel sounds are positive, nontender. No palpable hepatosplenomegaly. EXTREMITIES: Without overt digital clubbing or cyanosis. Trace pedal edema. Pedal pulses are weak, but palpable bilaterally. NEUROLOGIC: Pupils are equal, round, about 3 mm, reactive to light. Extraocular muscle movements appeared intact. She has spontaneous movement to all 4 extremities and responded appropriately to my questions. The skin was of poor turgor, particularly in her lower extremities without overt cellulitis or rash. LABORATORY DATA: From my review on admission, white cell count 7100, hemoglobin 11.0, hematocrit 34.3, platelet count 172. No significant band forms reported. Arterial blood gas showed a pH of 7.45, pCO2 of 43, pO2 of 207, that was on 80% FiO2 and I believe the above-mentioned vent settings. Serum sodium 138, potassium 4.3, chloride 96, bicarbonate 27, BUN 20, creatinine 2.4, glucose 150, AST 109, ALT 63. Troponin 0.133. Albumin 3.8, otherwise liver function tests essentially within normal limits. LDL cholesterol was 79. I do not have any microbiology studies. A chest x-ray was done. I have reviewed the chest x-ray as well as the radiologist's interpretation. I do agree with it. She does have bilateral pulmonary infiltrates, appears to be affecting the upper lobes and the right upper lobe in particular more so than the others. ET tube tip is at the lower level of the clavicular head. She has what is likely a right subclavian stent. No gross pneumothorax, no gross bony fracture. There is certainly gross cardiomegaly. ASSESSMENT: 1. Acute hypoxemic respiratory failure, on mechanical ventilatory support. 2. Status post cardiac arrest with return of spontaneous circulation. 3. End-stage renal disease, on dialysis. 4. Diabetes type 2. 5. Hypertension. 6. History of cerebrovascular accident. 7. Peripheral vascular disease. 8. History of pulmonary hypertension. PLAN: Etiology of loss of consciousness/cardiac arrest is still unclear. It is unclear what kind of rhythm, EMS actually did get there. EKG here does not suggest any acute ST elevation or inferior TX. She is actually pretty coherent and I doubt she was down for any significant length of time. From a respiratory standpoint, we will continue bronchodilators with pulmonary hygiene per the respiratory therapist, ventilator-associated pneumonia bundle has been introduced. Oxygen will be weaned to keep sats greater than or equal to over 90%. I will reduce the set minute ventilation to 12 per minute preparing her for spontaneous breathing trials. We will send a tracheal aspirate. I do see that she is being treated with empiric cefepime monotherapy. I will get a CRP level as well as a lactic acid level and to aid antibiotic stewardship and also to aid clinical decision making, I really doubt that there is a true infectious process at play here. Two sets of blood cultures will be sent if they have not already been sent and then I might just go ahead and electively stop the anti-infective therapy, especially after review of lactate and CRP levels. She will definitely be seen by the paleobotanist and we will defer to them for volume and toxin control. I will put her on GI prophylaxis. She is on DVT prophylaxis with heparin. She does have some slight bleeding from endotracheal tube suction, I believe this is probably related to the intubation itself and probably an element of pulmonary edema. She is not requiring any vasopressors at this time. Enteral nutrition will be the feeding modality of choice. Her temperature is back up to normal range and if it drops again, Trice Hugger warmer will be deployed. I note to have elevated serum transaminases. It is unclear if this is related to hypotension/shock liver; however, I will also get Tylenol levels as well as hepatitis panel. Flu and pneumonia vaccinations will be addressed per protocol. Thank you very much for the consult, Dr. Mireles. We will follow along and make further recommendations as picture progresses/becomes clearer. At this time, I have spent about 35-40 minutes of critical care time without overlap excluding any procedural time that may be necessary. JOB# [id number] JENNIFER/RU CUI
[2019-01-22 17:16] LABS: Hepatitis B Surface Antigen Non-Reactive (Negative); Hepatitis C Virus Antibody Non-Reactive (NonReactive)
[2019-01-22] MEDS: PRAVACHOL PO SCH (21:48)
[2019-01-22] MEDS: HEPARIN SUB-Q SCH (21:48)
[2019-01-22] MEDS: SODIUM CHLORIDE FLUSH SYRINGE 10 ML IV SCH (21:50)
[2019-01-23] MEDS ORDERED: NACL 0.9% 250ML 250 ML IV ONE (00:37)
[2019-01-23] MEDS: MAXIPIME/NS 1 GM/100 ML 1 GM/100 ML BAG IV SCH ×2 (01:45→18:22)
--- NOTE | 2019-01-23 04:46 | XRay Report ---
PROCEDURE: XR CHEST 1V AP TECHNIQUE: Chest radiograph single view. HISTORY: follow up respiratory failure COMPARISONS: January 22, 2019 . FINDINGS: Heart: Normal. Mediastinum/Vessels: Normal. Lungs/Pleural space: Lungs are expanded. There are bilateral perihilar infiltrates. There is no pleu ral effusion or pneumothorax.. Bony thorax: No acute osseous abnormality. Life support devices: Endotracheal tube is in the mid trachea. NG tube is in the stomach.. IMPRESSION: Heart size is normal.. Lungs are expanded. There are bilateral perihilar infiltrates. There is no pleural effusion or pneumo thorax.. Endotracheal tube is in the mid trachea. NG tube is in the stomach.. This document is electronically signed by Serg Davila MD., January 23 2019 05:44:57 AM ET
[2019-01-23 05:36] LABS: Basophils % (Auto) 0.5 % (0.0-1.8); Eosinophils % (Auto) 0.7 % (0.0-4.3); Hematocrit 26.8 % (30.3-42.9); Hemoglobin 8.8 gm/dl (10.1-14.3); Lymphocytes # (Auto) 0.4 K/mm3 (1.2-5.4); Lymphocytes % (Auto) 9.1 % (13.4-35.0); Mean Corpuscular HGB Conc 33 % (30-34); Mean Corpuscular Volume 82 fl (79-97); Monocytes # (Auto) 0.6 K/mm3 (0.0-0.8); Monocytes % (Auto) 11.4 % (0.0-7.3); Platelet Count 100 K/mm3 (140-440); Red Blood Count 3.27 M/mm3 (3.65-5.03); Red Cell Distribution Width 17.5 % (13.2-15.2)
[2019-01-23 06:10] LABS: Albumin 2.2 g/dL (3.9-5); Calcium 6.4 mg/dL (8.4-10.2)
--- NOTE | 2019-01-23 06:42 | Consultation ---
History of Present Illness - Reason for Consult Consult date: 01/23/19 end stage renal disease Requesting physician: GARETH WILHELM - History of Present Illness This is a 78 yo AAF with past medical history of hypertension, ESRD on HD on TTS schedule, DM, h/o CVA, PVD, Pulmonary HTN, who is BIBEMS after she suffered acute onset of loss of consciousness and found to be in cardiac arrest while receiving routine HD on 01/22. As per family, the patient was in her usual state of health before she went to her routine scheduled dialysis. EMS notified, and upon arrival the patient was found to be in distress and in cardiac arrest. Pt treated [facility] ACLS protocol with return of perfusing rhythm. Pt intubated and transported to [facility]. Pt seen and evaluated in ED and found to have Acute Respiratory Failure S/P Cardiac Arrest, ESRD, as well as Pneumonia. Pt family denies reports of fever, chills, palpiations, NVD, Trauma, BRBPR, Productive cough, skin rash, unilateral leg swelling, calf pain, prolonged travel/immobility. Pt admitted to ICU and initiated on Pneumonia protocol. Renal consult requested for management of ESRD/HD. Past History Past Medical History: diabetes, ESRD, PVD, stroke, other (Pulmonary HTN) Past Surgical History: Other (AV Fistula, Foot Surgery, femoral Bypass) Social history: , lives with family. denies: smoking, alcohol abuse, prescription drug abuse Family history: CAD, hypertension Medications and Allergies Allergies Allergy/AdvReac Type Severity Reaction Status Date / Time phenytoin sodium Allergy Anaphylaxis Verified 05/08/16 07:07 [From Dilantin] phenytoin sodium extended Allergy Anaphylaxis Verified 05/08/16 07:07 [From Dilantin] Home Medications Medication Instructions Recorded Confirmed Last Taken Type Ferrous Sulfate [Iron 325 MG] 325 mg PO DAILY 01/04/19 01/22/19 01/03/19 History Aspirin EC 81 mg PO QDAY #30 tablet. 01/07/19 01/22/19 Unknown Rx Clopidogrel [Plavix] 75 mg PO QDAY #30 tablet 01/07/19 01/22/19 Unknown Rx Losartan [Cozaar] 100 mg PO DAILY 30 Days #30 tablet 01/07/19 01/22/19 Unknown Rx Metoprolol [Lopressor TAB] 50 mg PO BID #60 tablet 01/07/19 01/22/19 Unknown Rx Pravastatin [Pravachol] 20 mg PO QHS #30 tablet 01/07/19 01/22/19 Unknown Rx Active Meds: Active Medications Albuterol (Proventil) 2.5 mg IH Q3H PRN PRN Reason: Shortness Of Breath Aspirin (Halfprin Ec) 81 mg PO QDAY [facility] Clopidogrel Bisulfate (Plavix) 75 mg PO QDAY [facility] Fentanyl (Sublimaze) 50 mcg IV Q10MIN PRN PRN Reason: ANALGESIA Ferrous Sulfate (Feosol) 325 mg PO DAILY [facility] Heparin Sodium (Porcine) (Heparin) 5,000 unit SUB-Q Q12HR [facility] Last Admin: 01/22/19 21:48 Dose: 5,000 unit Documented by: Hydrophilic Ointment (Vaseline Lip Therapy) 1 applic TP Q2HR PRN PRN Reason: Dry Lips Fentanyl Citrate (Fentanyl Drip Premix) 2,000 mcg in 100 mls @ 3.175 mls/hr IV TITR [facility]; Protocol Last Titration: 01/22/19 20:30 Dose: 1 mcg/kg/hr, 3.175 mls/hr Documented by: Midazolam HCl 100 mg/ Sodium (Chloride) 100 mls @ 2 mls/hr IV TITR [facility]; Protocol Last Titration: 01/22/19 20:30 Dose: 1 mg/hr, 1 mls/hr Documented by: Cefepime HCl (Maxipime/Ns 1 Gm/100 Ml) 1 gm in 100 mls @ 200 mls/hr IV Q12H [facility] Last Admin: 01/23/19 01:45 Dose: 200 mls/hr Documented by: Vancomycin HCl 750 mg/ Sodium (Chloride) 257.5 mls @ 171.667 mls/hr IV Q48H [facility] Midazolam HCl (Versed) 2 mg IV Q10MIN PRN PRN Reason: Sedation Multi-Ingred Cream/Lotion/Oil/Oint (Artificial Tears Ophth Oint) 1 applic OU Q4HR PRN PRN Reason: Dry Eye(s) Pravastatin Sodium (Pravachol) 20 mg PO QHS [facility] Last Admin: 01/22/19 21:48 Dose: 20 mg Documented by: Sodium Chloride (Sodium Chloride Flush Syringe 10 Ml) 10 ml IV BID [facility] Last Admin: 01/22/19 21:50 Dose: 10 ml Documented by: Sodium Chloride (Sodium Chloride Flush Syringe 10 Ml) 10 ml IV PRN PRN PRN Reason: LINE FLUSH Review of Systems ROS unobtainable: due to endotracheal tube Exam - Vital Signs Vital signs: Vital Signs Temp Pulse Resp BP Pulse Ox 92.4 F L 102 H 12 150/96 99 01/22/19 09:20 01/22/19 09:20 01/22/19 09:20 01/22/19 09:20 01/22/19 09:20 - General Appearance General appearance: sedated on ventilator, intubated EENT: ATNC, mucous membranes moist Neck: Present: neck supple Respiratory: Clear to Ascultation Heart: regular, S1S2 Gastrointestinal: Present: normoactive bowel sounds Integumentary: no rash, other (no edema ) Neurologic: other (intubated, sedated ) Results - Lab Results 01/23/19 04:29 01/23/19 04:29 Most recent lab results Calcium 8.8 mg/dL (8.4-10.2) 01/22/19 Unknown Magnesium 1.50 mg/dL (1.7-2.3) L 01/23/19 04:29 Laboratory Tests 01/22/19 Unknown Sodium 138 Potassium 4.3 Chloride 96.2 L Carbon Dioxide 27 Anion Gap 19 BUN 20 H Creatinine 2.4 H Estimated GFR 24 BUN/Creatinine Ratio 8 Glucose 150 H AST 109 H ALT 63 H Alkaline Phosphatase 227 H Troponin T 0.133 H* Assessment and Plan - Patient Problems (1) Cardiac arrest Current Visit: Yes Status: Acute Plan to address problem: s/p ALCS with return of spontaneous circulation, currently off vasopressors. follow cardiology recommendations. (2) Acute respiratory failure Current Visit: Yes Status: Acute Qualifiers: Respiratory failure complication: unspecified whether with hypoxia or hyperca pnia Qualified Code(s): J96.00 - Acute respiratory failure, unspecified w hether with hypoxia or hypercapnia Plan to address problem: vent management as per pulmonary/CCM (3) ESRD needing dialysis Current Visit: Yes Status: Acute Plan to address problem: no acute indications for urgent HD at present. will cont maintenance HD on TTS schedule, as hemodynamically stable allow (4) HTN (hypertension) Current Visit: Yes Status: Acute Qualifiers: Hypertension type: essential hypertension Qualified Code(s): I10 - Essential (primary) hypertension Plan to address problem: off antihypertensives s/p cardiac arrest. Will monitor BP and resume home meds as indicated (5) Pneumonia Current Visit: Yes Status: Acute Qualifiers: Pneumonia type: due to unspecified organism Laterality: bilateral Lung location: upper lobe of lung Qualified Code(s): J18.1 - Lobar pneumonia, unspecified organism Plan to address problem: started on empiric ABXs, dose all meds for HD (6) Anemia Current Visit: No Status: Acute Qualifiers: Anemia type: unspecified type Qualified Code(s): D64.9 - Anemia, unspecified Plan to address problem: start EPO with HD
[2019-01-23] MEDS ORDERED: D50W (25GM) Syringe IV PRN (06:43)
[2019-01-23] MEDS ORDERED: FEOSOL PO SCH (10:00)
[2019-01-23] MEDS: HALFPRIN EC PO SCH (10:07)
[2019-01-23] MEDS: HEPARIN SUB-Q SCH (10:08)
[2019-01-23] MEDS: PLAVIX PO SCH (10:10)
[2019-01-23] MEDS: SODIUM CHLORIDE FLUSH SYRINGE 10 ML IV SCH ×2 (10:11→22:53)
[2019-01-23] MEDS ORDERED: PANCREAZE DR 10,500 UNIT FEEDTUBE PRN (11:21)
[2019-01-23] MEDS ORDERED: SIMPLE SYRUP FEEDTUBE PRN ×2 (11:21)
[2019-01-23] MEDS ORDERED: SODIUM BICARBONATE FEEDTUBE PRN (11:21)
--- NOTE | 2019-01-23 12:16 | Consultation ---
History of Present Illness Consult date: 01/23/19 Consult reason: cardiac arrest History of present illness: Impression OOH cardiac arrest, currently intubated and sedated Elevated trop c/w NSTEMI CXR c/w acute pulm edema(my read) Pulmonary HTN PVD, s/p peripheral bypass, left transmetatarsal amputation CVA Plan CXR today looks improved by my read Her hemodynamics have stabilized. Recommend diagnostic cardiac cath post extubation. Past History Past Medical History: diabetes, ESRD, PVD, stroke, other (Pulmonary HTN) Past Surgical History: Other (AV Fistula, Foot Surgery, femoral Bypass) Social history: , lives with family. denies: smoking, alcohol abuse, prescription drug abuse Family history: CAD, hypertension Medications and Allergies Allergies Allergy/AdvReac Type Severity Reaction Status Date / Time phenytoin sodium Allergy Anaphylaxis Verified 05/08/16 07:07 [From Dilantin] phenytoin sodium extended Allergy Anaphylaxis Verified 05/08/16 07:07 [From Dilantin] Home Medications Medication Instructions Recorded Confirmed Last Taken Type Ferrous Sulfate [Iron 325 MG] 325 mg PO DAILY 01/04/19 01/22/19 01/03/19 History Aspirin EC 81 mg PO QDAY #30 tablet. 01/07/19 01/22/19 Unknown Rx Clopidogrel [Plavix] 75 mg PO QDAY #30 tablet 01/07/19 01/22/19 Unknown Rx Losartan [Cozaar] 100 mg PO DAILY 30 Days #30 tablet 01/07/19 01/22/19 Unknown Rx Metoprolol [Lopressor TAB] 50 mg PO BID #60 tablet 01/07/19 01/22/19 Unknown Rx Pravastatin [Pravachol] 20 mg PO QHS #30 tablet 01/07/19 01/22/19 Unknown Rx Active Meds: Active Medications Albuterol (Proventil) 2.5 mg IH Q3H PRN PRN Reason: Shortness Of Breath Lipase/Protease/Amylase (Benito Diaz 10,500 Unit) 1 each FEEDTUBE PRN PRN PRN Reason: For Clogged Feeding Tube Aspirin (Halfprin Ec) 81 mg PO QDAY LUCIO Clopidogrel Bisulfate (Plavix) 75 mg PO QDAY LUCIO Dextrose (D50w (25gm) Syringe) 50 ml IV PRN PRN PRN Reason: Hypoglycemia Fentanyl (Sublimaze) 50 mcg IV Q10MIN PRN PRN Reason: ANALGESIA Ferrous Sulfate (Feosol) 325 mg PO DAILY [facility] Heparin Sodium (Porcine) (Heparin) 5,000 unit SUB-Q Q12HR [facility] Last Admin: 01/22/19 21:48 Dose: 5,000 unit Documented by: Hydrophilic Ointment (Vaseline Lip Therapy) 1 applic TP Q2HR PRN PRN Reason: Dry Lips Fentanyl Citrate (Fentanyl Drip Premix) 2,000 mcg in 100 mls @ 3.175 mls/hr IV TITR [facility]; Protocol Last Titration: 01/22/19 20:30 Dose: 1 mcg/kg/hr, 3.175 mls/hr Documented by: Midazolam HCl 100 mg/ Sodium (Chloride) 100 mls @ 2 mls/hr IV TITR [facility]; Protocol Last Titration: 01/22/19 20:30 Dose: 1 mg/hr, 1 mls/hr Documented by: Cefepime HCl (Maxipime/Ns 1 Gm/100 Ml) 1 gm in 100 mls @ 200 mls/hr IV QPM [facility] Insulin Human Lispro (Humalog) 0 unit SUB-Q Q6HR [facility]; Protocol Midazolam HCl (Versed) 2 mg IV Q10MIN PRN PRN Reason: Sedation Multi-Ingred Cream/Lotion/Oil/Oint (Artificial Tears Ophth Oint) 1 applic OU Q4HR PRN PRN Reason: Dry Eye(s) Pravastatin Sodium (Pravachol) 20 mg PO QHS [facility] Last Admin: 01/22/19 21:48 Dose: 20 mg Documented by: Simple Syrup (Simple Syrup) 15 ml FEEDTUBE PRN PRN PRN Reason: Hypoglycemia Simple Syrup (Simple Syrup) 30 ml FEEDTUBE PRN PRN PRN Reason: Hypoglycemia Sodium Bicarbonate (Sodium Bicarbonate) 325 mg FEEDTUBE PRN PRN PRN Reason: For Clogged Feeding Tube Sodium Chloride (Sodium Chloride Flush Syringe 10 Ml) 10 ml IV BID [facility] Last Admin: 01/22/19 21:50 Dose: 10 ml Documented by: Sodium Chloride (Sodium Chloride Flush Syringe 10 Ml) 10 ml IV PRN PRN PRN Reason: LINE FLUSH Review of Systems ROS unobtainable: due to endotracheal tube All systems: negative Physical Examination Vital Signs Temp Pulse Resp BP Pulse Ox 92.4 F L 102 H 12 150/96 99 01/22/19 09:20 01/22/19 09:20 01/22/19 09:20 01/22/19 09:20 01/22/19 09:20 General appearance: no acute distress Cardiac: Positive: Reg Rate and Rhythm, S1/S2. Negative: S3 Lungs: Positive: Normal Exam Abdomen: Positive: Soft Extremities: Absent: edema (left transmetatarsal amputation) Results 01/23/19 04:29 01/23/19 04:29 Cardiac Enzymes 01/23/19 Range/Units 04:29 AST 26 (5-40) units/L CBC 01/23/19 Range/Units 04:29 WBC 5.0 (4.5-11.0) K/mm3 RBC 3.27 L (3.65-5.03) M/mm3 Hgb 8.8 L (10.1-14.3) gm/dl Hct 26.8 L D (30.3-42.9) % Plt Count 100 L (140-440) K/mm3 Lymph # 0.4 L (1.2-5.4) K/mm3 [place] # 0.6 (0.0-0.8) K/mm3 Eos # 0.0 (0.0-0.4) K/mm3 Baso # 0.0 (0.0-0.1) K/mm3 Comprehensive Metabolic Panel 01/23/19 Range/Units 04:29 Sodium 141 (137-145) mmol/L Potassium 3.0 L D (3.6-5.0) mmol/L Chloride 109.2 H (98-107) mmol/L Carbon Dioxide 18 L D (22-30) mmol/L BUN 23 H (7-17) mg/dL Creatinine 2.6 H (0.7-1.2) mg/dL Glucose 68 (65-100) mg/dL Calcium 6.4 L D (8.4-10.2) mg/dL AST 26 (5-40) units/L ALT 25 (7-56) units/L Alkaline Phosphatase 112 (35-129) units/L Total Protein 4.7 L D (6.3-8.2) g/dL Albumin 2.2 L (3.9-5) g/dL
[2019-01-23] MEDS: fentaNYL DRIP Premix 2,000 MCG/100 ML BAG IV SCH (15:30)
[2019-01-23] MEDS ORDERED: KCL 20MEQ/100ML 20 MEQ/100 ML BAG IV ONE (15:43)
[2019-01-23] MEDS ORDERED: MAGNESIUM SULFATE 2GM/50ML 2 GM/50 ML BAG IV ONE (15:45)
[2019-01-23] MEDS: HumaLOG SUB-Q SCH (16:00)
--- NOTE | 2019-01-23 16:29 | Progress Note ---
Assessment and Plan Acute hypoxemic respiratory failure, on mechanical ventilatory support. Status post cardiac arrest with return of spontaneous circulation. End-stage renal disease, on dialysis. Diabetes type 2. Hypertension. History of cerebrovascular accident. Peripheral vascular disease. History of pulmonary hypertension. - replaced magnesium and potassium to optimize respiratory muscle function - resume daily SBT's as tolerated (rest on AC mode qhs for now but reduced set rate to 10/min) - ABG after 2 hours on initial SBT - continue bronchodilators with routine trach care and pulmonary hygiene per RT - sedation target for RASS 0 to -1 (daily SAT's as tolerated) - continue GI & VTE prophylaxis - continue to wean supplemental oxygen to keep O2 sats 88-90% - Lung protective strategies - VAP bundle addressed - continue HD/UF for toxin and volume clearance - continue empiric antibiotics and de-escalate based on clinical and microbiologic data (Cultures NGTD) - Continue cardioprotective measures (cardiology evaluation ongoing) - Continue to rest at night on full MVS - Monitor renal indices closely - Avoid nephrotoxic agents, adjust all medications for CrCL - Strict intake and output monitoring - continue enteral nutrition as tolerated - continue accuchecks with glycemic control per SSI for target glucose of 140- 180 mg/dL - Maintenance of sleep -wake cycle - Mobility as tolerated by hemodynamics - Influenza and pneumonia vaccination per protocol - discharge planning ongoing concurrently PROGNOSIS: GUARDED CONDITION: CRITICAL CODE STATUS: FULL CODE The high probability of a clinically significant, sudden or life-threatening deterioration of the [respiratory, cardiac & renal] system(s) required my full and direct attention, intervention and personal management. The aggregate critical care time was [35] minutes without overlap. Time includes spent on; [x] Data Review and interpretation [x] Patient assessment and monitoring of vital signs [x] Documentation [x] Medication orders and management Subjective Date of service: 01/23/19 Principal diagnosis: Acute hypoxemic resp failure; S/P cardiac arrest; ESRD on dialysis; DM II Interval history: Patient is seen today for: Acute hypoxemic resp failure on MVS; S/P cardiac arrest with ROSC; ESRD on dialysis; DM II; HTN; H/O CVA; PVD; H/O pulmonary hypertension. Seen and examined at bedside; 24hour events reviewed; nursing and respiratory care staff consulted; no adverse overnight events reported to me; remains on MVS; failed SBT earlier with Apnea's; no emesis or overt aspiration; no fevers; responsive and denies acute chest pains; No N/V/F/C Objective Vital Signs - 12hr 01/23/19 01/23/19 01/23/19 06:00 08:00 10:00 Temperature 97.3 F L Pulse Rate 75 76 Pulse Rate [ 74 74 74 From Monitor] Respiratory 12 12 12 Rate Blood Pressure 100/50 O2 Sat by Pulse 100 100 100 Oximetry 01/23/19 01/23/19 01/23/19 12:00 12:48 14:00 Temperature 97.6 F Pulse Rate 72 Pulse Rate [ 74 74 From Monitor] Respiratory 12 12 Rate Blood Pressure 92/49 O2 Sat by Pulse 100 100 100 Oximetry 01/23/19 15:59 Temperature 97.7 F Pulse Rate Pulse Rate [ From Monitor] Respiratory Rate Blood Pressure O2 Sat by Pulse Oximetry Constitutional: appears uncomfortable, other (elderly looking AAF, normocephalic resting in bed on MVS) Eyes: non-icteric ENT: oropharynx moist, other (ETT 23 cm NAVEEN) Neck: supple, no lymphadenopathy, no JVD, other (no thyromegaly) Effort: mildly labored Ascultation: Bilateral: diminished breath sounds, rhonchi Percussion: Bilateral: not dull Cardiovascular: regular rate and rhythm, murmur noted (systolic) Gastrointestinal: normoactive bowel sounds, soft, non-tender, non-distended Integumentary: rash Extremities: no cyanosis, no edema, pulses normal, no ischemia or petechiae Neurologic: non-focal exam (grossly), pupils equal and round, CN II-XII normal, other (lethargic) CBC and BMP: 01/24/19 05:40 01/24/19 05:40 ABG, PT/INR, D-dimer: ABG POC ABG pH 7.392 (7.35-7.45) 01/23/19 03:48 POC ABG pCO2 43.4 (35-45) 01/23/19 03:48 POC ABG pO2 138 (80-105) H 01/23/19 03:48 POC ABG HCO3 26.4 (22-26 mml/L) 01/23/19 03:48 POC ABG Total CO2 28 (23-27mmol/L) 01/23/19 03:48 POC ABG O2 Sat 99 01/23/19 03:48 Abnormal lab findings: Abnormal Labs 01/22/19 01/22/19 01/22/19 11:09 15:07 15:35 RBC Hgb Hct MCH RDW Plt Count Lymph % (Auto) Walker % (Auto) Lymph # Seg Neutrophils % Monocytes % (Manual) POC ABG pO2 207 H Potassium Chloride Carbon Dioxide BUN Creatinine Glucose POC Glucose 134 H Calcium Magnesium AST ALT Alkaline Phosphatase Troponin T NT-Pro-B Natriuret Pep Total Protein Albumin HDL Cholesterol Acetaminophen < 5.0 L 01/22/19 01/22/19 01/22/19 17:40 Unknown Unknown RBC Hgb Hct MCH 26 L RDW 17.3 H Plt Count Lymph % (Auto) Walker % (Auto) Lymph # Seg Neutrophils % Monocytes % (Manual) 11.0 H POC ABG pO2 Potassium Chloride 96.2 L Carbon Dioxide BUN 20 H Creatinine 2.4 H Glucose 150 H POC Glucose 121 H Calcium Magnesium AST 109 H ALT 63 H Alkaline Phosphatase 227 H Troponin T 0.133 H* NT-Pro-B Natriuret Pep Total Protein Albumin 3.8 L HDL Cholesterol 62 H Acetaminophen 01/23/19 01/23/19 01/23/19 01:26 03:48 04:29 RBC 3.27 L Hgb 8.8 L Hct 26.8 L D MCH 27 L RDW 17.5 H Plt Count 100 L Lymph % (Auto) 9.1 L Walker % (Auto) 11.4 H Lymph # 0.4 L Seg Neutrophils % 78.3 H Monocytes % (Manual) POC ABG pO2 138 H Potassium Chloride Carbon Dioxide BUN Creatinine Glucose POC Glucose 108 H Calcium Magnesium AST ALT Alkaline Phosphatase Troponin T NT-Pro-B Natriuret Pep Total Protein Albumin HDL Cholesterol Acetaminophen 01/23/19 04:29 RBC Hgb Hct MCH RDW Plt Count Lymph % (Auto) Walker % (Auto) Lymph # Seg Neutrophils % Monocytes % (Manual) POC ABG pO2 Potassium 3.0 L D Chloride 109.2 H Carbon Dioxide 18 L D BUN 23 H Creatinine 2.6 H Glucose POC Glucose Calcium 6.4 L D Magnesium 1.50 L AST ALT Alkaline Phosphatase Troponin T NT-Pro-B Natriuret Pep 85038 H Total Protein 4.7 L D Albumin 2.2 L HDL Cholesterol Acetaminophen Chest x-ray: image reviewed (improving bilateral infiltrates including upper lobes) Allied health notes reviewed: nursing
[2019-01-23] MEDS ORDERED: MAGNESIUM SULFATE 1 GM in NACL 0.9% 50 ML IV ONE (17:53)
--- NOTE | 2019-01-23 17:56 | Progress Note ---
Assessment and Plan Assessment and plan: 78 YO Female with ESRD on HD (T,R,Sa ), DM, HTN, CVA, PVD, Pulmonary HTN presents to ED for evaluation. Pt is unresponsive and unable to provide history. History provided by family who is at bedside during exam and interview. As per family, the patient was in her usual state of health and went to her routine scheduled dialysis session today. Pt was undergoing dialysis today and experienced a sudden onset of loss of consciousness, and was found to be in cardiac arrest. EMS notified, and upon arrival the patient was found to be in distress and in cardiac arrest. Pt treated IAW ACLS protocol with return of perfusing rhythm. Pt intubated and transported to [facility]. Pt seen and evaluated in ED and found to have Acute Respiratory Failure S/P Cardiac Arrest, ESRD, as well as Pneumonia. Pt family denies reports of fever, chills, palpiations, NVD, Trauma, BRBPR, Productive cough, skin rash, unilateral leg swelling, calf pain, prolonged travel/immobility, individual/family history of DVT/PE. Pt admitted to ICU and initiated on Pneumonia protocol. Cardiology, Pulmonary and Nephrology teams consulted in ED. Prior admission on 01/04/19 reviewed. All listed medication reconciled at time of admission. OOH cardiac arrest, currently intubated and sedated Elevated trop c/w NSTEMI PVD, s/p peripheral bypass, left transmetatarsal amputation CVA (1) Acute respiratory failure with hypoxia secondary to Out of hospital cardiac arrest -wean mechanical ventilation as tolerated -Pulmonary input noted -VAP AND Aspiration precaution Bundle -Nebs, scheduled and PRN (2) Cardiac arrest -S/P ACLS with return of perfusing rhythm, -Cardiology input noted -Cardiac cah prior to discharge (3) ESRD needing dialysis -Nephrology consulted in ED, monitor uop q shift, daily weight, avoid nephrotoxic agents. -Correct Electrolytes -Diurese as needed (4) Pneumonia Pneumonia protocol, IV antibiotic, blood cultures, CBC, Chest xray, supplemental oxygen, (5) HTN (hypertension) Monitor BP q shift, Pt currently hypotensive S/P cardiac arrest. (6) Diabetes ADA diet, when/if awake alert, insulin, accu check,hypoglycemia protocol (7) Pulmonary hypertension supportive care, continue current care, wean vent as tolerated, (8) Hypokalemia REPLACE (9) Anemia of chronic renal disease Monitor and transfuse as needed (10) PVD (11) DVT prophylaxis Current Visit: No Status: Acute Plan to address problem: SCD to BLE while in bed, prophylactic heparin No family present The high probability of a clinically significant, sudden or life threatening deterioration of the [Cardiac, pulmonary, renal, ] system(s) required my full and direct attention, intervention and personal management. The aggregate critical care time was [35] minutes. This time is in addition to time spent performing reported procedures but includes the following: [x] Data Review and interpretation [x] Patient assessment and monitoring of vital signs [x] Documentation [x] Medication orders and management ly. History Interval history: Patient seen and examined, still lethargic and on the vent but responsive and follows command. Hospitalist Physical - Physical exam Narrative exam: General appearance: Present: on mechanical ventilation - EENT Eyes: Present: equal and reactive - Neck Neck: Present: supple, normal ROM - Respiratory Respiratory effort: labored Respiratory: bilateral: diminished, rhonchi - Cardiovascular Heart Sounds: Present: S1 & S2. Absent: rub, click - Extremities Extremities: pulses symmetrical Extremity abnormal: edema Peripheral Pulses: within normal limits - Abdominal General gastrointestinal: Present: soft, non-tender, non-distended, normal bowel sounds Female genitourinary: Present: normal - Integumentary Integumentary: Present: clear, dry, clammy, decreased turgor - Musculoskeletal Musculoskeletal: generalized weakness - Psychiatric Psychiatric: no appropriate mood/affect, no intact judgment & insight, no memory intact - Neurologic Neurologic: CNII-XII intact, moves all extremities, - Constitutional Vitals: Temp Pulse Resp BP Pulse Ox 97.7 F 74 12 100/50 100 01/23/19 15:59 01/23/19 15:50 01/23/19 14:00 01/23/19 15:50 01/23/19 15:50 General appearance: Present: no acute distress Results - Labs CBC & Chem 7: 01/23/19 04:29 01/23/19 04:29 Labs: Laboratory Last Values WBC 5.0 K/mm3 (4.5-11.0) 01/23/19 04:29 RBC 3.27 M/mm3 (3.65-5.03) L 01/23/19 04:29 Hgb 8.8 gm/dl (10.1-14.3) L 01/23/19 04:29 Hct 26.8 % (30.3-42.9) L D 01/23/19 04:29 MCV 82 fl (79-97) 01/23/19 04:29 MCH 27 pg (28-32) L 01/23/19 04:29 MCHC 33 % (30-34) 01/23/19 04:29 RDW 17.5 % (13.2-15.2) H 01/23/19 04:29 Plt Count 100 K/mm3 (140-440) L 01/23/19 04:29 Lymph % (Auto) 9.1 % (13.4-35.0) L 01/23/19 04:29 Falls % (Auto) 11.4 % (0.0-7.3) H 01/23/19 04:29 Eos % (Auto) 0.7 % (0.0-4.3) 01/23/19 04:29 Baso % (Auto) 0.5 % (0.0-1.8) 01/23/19 04:29 Lymph # 0.4 K/mm3 (1.2-5.4) L 01/23/19 04:29 Falls # 0.6 K/mm3 (0.0-0.8) 01/23/19 04:29 Eos # 0.0 K/mm3 (0.0-0.4) 01/23/19 04:29 Baso # 0.0 K/mm3 (0.0-0.1) 01/23/19 04:29 Add Manual Diff Complete 01/22/19 Unknown Total Counted 100 01/22/19 Unknown Seg Neutrophils % 78.3 % (40.0-70.0) H 01/23/19 04:29 Seg Neuts % (Manual) 60.0 % (40.0-70.0) 01/22/19 Unknown 1.0 % 01/22/19 Unknown 25.0 % (13.4-35.0) 01/22/19 Unknown Reactive Lymphs % (Man) 0 % 01/22/19 Unknown 11.0 % (0.0-7.3) H 01/22/19 Unknown 0 % (0.0-4.3) 01/22/19 Unknown 0 % (0.0-1.8) 01/22/19 Unknown 3.0 % 01/22/19 Unknown 0 % 01/22/19 Unknown 0 % 01/22/19 Unknown 0 % 01/22/19 Unknown Nucleated RBC % Not Reportable 01/22/19 Unknown Seg Neutrophils # 3.9 K/mm3 (1.8-7.7) 01/23/19 04:29 Seg Neutrophils # Man 4.3 K/mm3 (1.8-7.7) 01/22/19 Unknown Band Neutrophils # 0.1 K/mm3 01/22/19 Unknown 1.8 K/mm3 (1.2-5.4) 01/22/19 Unknown Abs React Lymphs (Man) 0.0 K/mm3 01/22/19 Unknown 0.8 K/mm3 (0.0-0.8) 01/22/19 Unknown 0.0 K/mm3 (0.0-0.4) 01/22/19 Unknown 0.0 K/mm3 (0.0-0.1) 01/22/19 Unknown 0.2 K/mm3 01/22/19 Unknown 0.0 K/mm3 01/22/19 Unknown 0.0 K/mm3 01/22/19 Unknown Blast Cells # 0.0 K/mm3 01/22/19 Unknown WBC Morphology Not Reportable 01/22/19 Unknown Hypersegmented Neuts Not Reportable 01/22/19 Unknown Hyposegmented Neuts Not Reportable 01/22/19 Unknown Hypogranular Neuts Not Reportable 01/22/19 Unknown Not Reportable 01/22/19 Unknown Not Reportable 01/22/19 Unknown Not Reportable 01/22/19 Unknown Not Reportable 01/22/19 Unknown Not Reportable 01/22/19 Unknown Not Reportable 01/22/19 Unknown Consistent w auto 01/22/19 Unknown Not Reportable 01/22/19 Unknown Plt Clumps, EDTA Not Reportable 01/22/19 Unknown Few 01/22/19 Unknown Not Reportable 01/22/19 Unknown Not Reportable 01/22/19 Unknown Plt Morphology Comment Not Reportable 01/22/19 Unknown RBC Morphology Not Reportable 01/22/19 Unknown Dimorphic RBCs Not Reportable 01/22/19 Unknown Not Reportable 01/22/19 Unknown Not Reportable 01/22/19 Unknown Not Reportable 01/22/19 Unknown Not Reportable 01/22/19 Unknown Not Reportable 01/22/19 Unknown Not Reportable 01/22/19 Unknown Not Reportable 01/22/19 Unknown Not Reportable 01/22/19 Unknown Not Reportable 01/22/19 Unknown Not Reportable 01/22/19 Unknown Few 01/22/19 Unknown Not Reportable 01/22/19 Unknown Not Reportable 01/22/19 Unknown Not Reportable 01/22/19 Unknown Not Reportable 01/22/19 Unknown Not Reportable 01/22/19 Unknown Not Reportable 01/22/19 Unknown Not Reportable 01/22/19 Unknown Few 01/22/19 Unknown Acanthocytes (Spur) Not Reportable 01/22/19 Unknown Rouleaux Not Reportable 01/22/19 Unknown Not Reportable 01/22/19 Unknown Rare 01/22/19 Unknown Not Reportable 01/22/19 Unknown Not Reportable 01/22/19 Unknown Hem Pathologist Commnt No 01/22/19 Unknown POC ABG pH 7.392 (7.35-7.45) 01/23/19 03:48 POC ABG pCO2 43.4 (35-45) 01/23/19 03:48 POC ABG pO2 138 (80-105) H 01/23/19 03:48 POC ABG HCO3 26.4 (22-26 mml/L) 01/23/19 03:48 POC ABG Total CO2 28 (23-27mmol/L) 01/23/19 03:48 POC ABG O2 Sat 99 01/23/19 03:48 POC ABG Base Excess 1 ((-2) - (+3)mmol/L) 01/23/19 03:48 45 % 01/23/19 03:48 Sodium 141 mmol/L (137-145) 01/23/19 04:29 Potassium 3.0 mmol/L (3.6-5.0) L D 01/23/19 04:29 Chloride 109.2 mmol/L (98-107) H 01/23/19 04:29 Carbon Dioxide 18 mmol/L (22-30) L D 01/23/19 04:29 17 mmol/L 01/23/19 04:29 BUN 23 mg/dL (7-17) H 01/23/19 04:29 2.6 mg/dL (0.7-1.2) H 01/23/19 04:29 Estimated GFR 22 ml/min 01/23/19 04:29 9 % 01/23/19 04:29 Glucose 68 mg/dL (65-100) 01/23/19 04:29 POC Glucose 63 (70-105) L 01/23/19 17:11 Lactic Acid 1.70 mmol/L (0.7-2.0) 01/22/19 15:35 Calcium 6.4 mg/dL (8.4-10.2) L D 01/23/19 04:29 Magnesium 1.50 mg/dL (1.7-2.3) L 01/23/19 04:29 0.30 mg/dL (0.1-1.2) 01/23/19 04:29 AST 26 units/L (5-40) 01/23/19 04:29 ALT 25 units/L (7-56) 01/23/19 04:29 112 units/L (35-129) 01/23/19 04:29 0.133 ng/mL (0.00-0.029) H* 01/22/19 Unknown 1.30 mg/dL (0.00-1.30) 01/22/19 15:35 NT-Pro-B Natriuret Pep 08066 pg/mL (0-900) H 01/23/19 04:29 4.7 g/dL (6.3-8.2) L D 01/23/19 04:29 2.2 g/dL (3.9-5) L 01/23/19 04:29 0.9 % 01/23/19 04:29 Triglycerides 111 mg/dL (2-149) 01/22/19 Unknown Cholesterol 153 mg/dL (50-199) 01/22/19 Unknown 79 mg/dL (50-130) 01/22/19 Unknown 62 mg/dL (40-59) H 01/22/19 Unknown 2.46 % 01/22/19 Unknown Acetaminophen < 5.0 ug/mL (10.0-30.0) L 01/22/19 15:35 Hepatitis A IgM Ab Non-reactive (NonReactive) 01/22/19 15:35 Hep Bs Antigen Non-reactive (Negative) 01/22/19 15:35 Hep B Core IgM Ab Non-reactive (NonReactive) 01/22/19 15:35 Non-reactive (NonReactive) 01/22/19 15:35 Blood Type B POSITIVE 01/22/19 11:53 WOODY Antibody Screen Negative 01/22/19 11:53 Active Medications - Current Medications Current Medications: Generic Name Dose Route Start Last Admin Trade Name Freq PRN Reason Stop Dose Admin Albuterol 2.5 mg 01/22/19 12:23 Proventil IH Q3H PRN Shortness Of Breath Lipase/Protease/Amylase 1 each 01/23/19 11:[address] 10,500 Unit FEEDTUBE PRN PRN For Clogged Feeding Tube Aspirin 81 mg 01/23/19 10:00 01/23/19 10:07 Halfprin Ec PO 81 mg QDAY LUCIO Administration Clopidogrel Bisulfate 75 mg 01/23/19 10:00 01/23/19 10:10 Plavix PO 75 mg QDAY LUCIO Administration Dextrose 50 ml 01/23/19 06:43 D50w (25gm) Syringe IV PRN PRN Hypoglycemia Fentanyl 50 mcg 01/22/19 09:33 Sublimaze IV Q10MIN PRN ANALGESIA Ferrous Sulfate 325 mg 01/23/19 10:00 01/23/19 10:07 Feosol PO 325 mg DAILY LUCIO Administration Heparin Sodium (Porcine) 5,000 unit 01/22/19 22:00 01/23/19 10:08 Heparin SUB-Q 5,000 unit Q12HR LUCIO Administration Hydrophilic Ointment 1 applic 01/22/19 09:33 Vaseline Lip Therapy TP Q2HR PRN Dry Lips Fentanyl Citrate 2,000 mcg in 100 mls @ 3.175 mls/hr 01/22/19 10:00 01/23/19 15:30 Fentanyl Drip Premix IV 1 mcg/kg/hr TITR LUCIO 3.175 mls/hr Administration Protocol 1 MCG/KG/HR Midazolam HCl 100 mg/ Sodium 100 mls @ 2 mls/hr 01/22/19 11:00 01/23/19 15:50 Chloride IV 0 mg/hr TITR LUCIO 0 mls/hr Titration Protocol 2 MG/HR Cefepime HCl 1 gm in 100 mls @ 200 mls/hr 01/23/19 18:00 Maxipime/Ns 1 Gm/100 Ml IV QPM LUCIO Magnesium Sulfate 1 gm/ Sodium 52 mls @ 52 mls/hr 01/23/19 17:53 Chloride IV 01/23/19 18:52 ONCE ONE Insulin Human Lispro 0 unit 01/23/19 12:00 01/23/19 16:00 Humalog SUB-Q Not Given Q6HR [facility] Protocol Midazolam HCl 2 mg 01/22/19 09:33 Versed IV Q10MIN PRN Sedation Multi-Ingred Cream/Lotion/Oil/Oint 1 applic 01/22/19 09:33 Artificial Tears Ophth Oint OU Q4HR PRN Dry Eye(s) Pravastatin Sodium 20 mg 01/22/19 22:00 01/22/19 21:48 Pravachol PO 20 mg QHS LUCIO Administration Simple Syrup 15 ml 01/23/19 11:21 Simple Syrup FEEDTUBE PRN PRN Hypoglycemia Simple Syrup 30 ml 01/23/19 11:21 Simple Syrup FEEDTUBE PRN PRN Hypoglycemia Sodium Bicarbonate 325 mg 01/23/19 11:21 Sodium Bicarbonate FEEDTUBE PRN PRN For Clogged Feeding Tube Sodium Chloride 10 ml 01/22/19 22:00 01/23/19 10:11 Sodium Chloride Flush Syringe 10 Ml IV 10 ml BID LUCIO Administration Sodium Chloride 10 ml 01/22/19 12:23 Sodium Chloride Flush Syringe 10 Ml IV PRN PRN LINE FLUSH Nutrition/Malnutrition Assess - Dietary Evaluation Nutrition/Malnutrition Findings: Nutrition Notes Start: 01/23/19 10:56 Freq: Status: Active Protocol: Document 01/23/19 10:56 RM (Rec: 01/23/19 11:09 [id number]) Nutrition Notes Need for Assessment generated from: MD Order Initial or Follow up Assessment Current Diagnosis Diabetes,Hypertension, Respiratory Failure,Stroke Other Pertinent Diagnosis ESRD on HD (T/R/Sa), PVD, Pneu Current Diet NPO Labs/Tests Reviewed Pertinent Medications Reviewed Height 5 ft 6 in Weight 63.503 kg [place] Body Weight (kg) 59.09 BMI 22.6 Subjective/Other Information Consulted for TF recommendation. Pt on vent. Burn Absent Trauma Absent #1 Nutrition Diagnosis Inadequate oral intake Etiology on vent As Evidenced by Signs and Symptoms NPO status Is patient on ventilator? Yes Is Patient Ambulatory and/or Out of Bed No REE-([facility]-confined to bed) [phone] Calculation Used for Recommendations Ana Bowser Additional Notes Protein Needs: 76-127g (1.2-2g /kg) Fluid Needs: 1 ml/kcal Nutrition Intervention Nutrition Support: Glucerna 1.2 at 50 ml/hr. Water flush of 80 ml q 4 hrs. Kcal 1,440 Protein (gm) 72 Fluid (mL) 966 Goal #1 TF tolerance Goal #2 Meet at least 80% of calorie and protein needs via TF Follow-Up By: 01/25/19 Additional Comments Follow TF tolerance, renal labs
[2019-01-23] MEDS: PRAVACHOL PO SCH (22:53)
[2019-01-24] MEDS: HumaLOG SUB-Q SCH ×5 (00:34→23:36)
--- NOTE | 2019-01-24 04:10 | XRay Report ---
PROCEDURE: XR CHEST 1V AP TECHNIQUE: Chest radiograph single view. HISTORY: follow up respiratory failure FINDINGS: Single frontal view of the chest was acquired and compared to the prior examination of the prior day. There is stable cardiomegaly. There is an endotracheal tube with its tip in appropriate position. The re is a nasogastric tube which terminates in the gastric fundus. There is a right-sided vascular stent. There is no evidence of congestive heart failure. There is no consolidative infiltrate. IMPRESSION: Stable cardiomegaly This document is electronically signed by Emory Davis MD., January 24 2019 05:08:51 AM ET
[2019-01-24 06:46] LABS: Hematocrit 34.5 % (30.3-42.9); Hemoglobin 10.8 gm/dl (10.1-14.3); Mean Corpuscular HGB Conc 31 % (30-34); Mean Corpuscular Volume 84 fl (79-97); Platelet Count 109 K/mm3 (140-440); Red Blood Count 4.11 M/mm3 (3.65-5.03); Red Cell Distribution Width 18.3 % (13.2-15.2)
[2019-01-24 06:51] LABS: Calcium 8.2 mg/dL (8.4-10.2)
--- NOTE | 2019-01-24 09:48 | Progress Note ---
Assessment and Plan Assessment and plan: Assessment and plan: 78 YO Female with ESRD on HD (T,R,Sa ), DM, HTN, CVA, PVD, Pulmonary HTN presents to ED for evaluation. Pt is unresponsive and unable to provide history. History provided by family who is at bedside during exam and interview. As per family, the patient was in her usual state of health and went to her routine scheduled dialysis session today. Pt was undergoing dialysis today and ex perienced a sudden onset of loss of consciousness, and was found to be in cardiac arrest. EMS notified, and upon arrival the patient was found to be in distress and in cardiac arrest. Pt treated IAW ACLS protocol with return of perfusing rhythm. Pt intubated and transported to [facility]. Pt seen and evaluated in ED and found to have Acute Respiratory Failure S/P Cardiac Arrest, ESRD, as well as Pneumonia. Pt family denies reports of fever, chills, palpiations, NVD, Trauma, BRBPR, Productive cough, skin rash, unilateral leg swelling, calf pain, prolonged travel/immobility, individual/family history of DVT/PE. Pt admitted to ICU and initiated on Pneumonia protocol. Cardiology, Pulmonary and Nephrology teams consulted in ED. Prior admission on 01/04/19 reviewed. All listed medication reconciled at time of admission. OOH cardiac arrest, currently intubated and sedated Elevated trop c/w NSTEMI PVD, s/p peripheral bypass, left transmetatarsal amputation CVA -- Acute respiratory failure with hypoxia secondary to Out of hospital cardiac arrest -wean mechanical ventilation as tolerated -Pulmonary input noted -VAP AND Aspiration precaution Bundle -Nebs, scheduled and PRN -- Cardiac arrest -S/P ACLS with return of perfusing rhythm, -Cardiology input noted -Cardiac cah prior to discharge -- ESRD needing dialysis -Nephrology consulted in ED, monitor uop q shift, daily weight, avoid nephrotoxic agents. -Correct Electrolytes -Diurese as needed -- Pneumonia Pneumonia protocol, IV antibiotic, follow blood cultures, Oxygen titrate O2 sats to more than 90% --HTN (hypertension) Monitor BP q shift, Pt currently hypotensive S/P cardiac arrest. -- Diabetes ADA diet, when/if awake alert, insulin, accu check,hypoglycemia protocol -- Pulmonary hypertension supportive care, continue current care, wean vent as tolerated, -- Hypokalemia REPLACE per protocol -- Anemia of chronic renal disease Monitor and transfuse as needed -- PVD -- DVT prophylaxis SCD to BLE while in bed, prophylactic heparin Plan of care is reviewed with the family member at the bedside The high probability of a clinically significant, sudden or life threatening deterioration of the [Cardiac, pulmonary, renal, ] system(s) required my full and direct attention, intervention and personal management. The aggregate critical care time was [34] minutes. This time is in addition to time spent performing reported procedures but includes the following: [x] Data Review and interpretation [x] Patient assessment and monitoring of vital signs [x] Documentation [x] Medication orders and management ly. History Interval history: Sincerely and examined medical records reviewed No new events reported by the nursing staff Remains intubated on ventilatory support On weaning per meters Vital signs noted Hospitalist Physical - Constitutional Vitals: Temp Pulse Resp BP Pulse Ox 98.1 F 79 8 L 135/61 100 01/24/19 04:00 01/24/19 08:15 01/24/19 08:15 01/24/19 08:15 01/24/19 08:15 General appearance: Present: no acute distress, well-nourished, other (intubated on vent) - EENT Eyes: Present: PERRL, EOM intact - Neck Neck: Present: supple, normal ROM - Respiratory Respiratory effort: normal Respiratory: bilateral: diminished, rhonchi, negative: rales, wheezing - Cardiovascular Rhythm: regular Heart Sounds: Present: S1 & S2 - Extremities Extremities: no ischemia, No edema - Abdominal General gastrointestinal: soft, non-tender, non-distended, normal bowel sounds - Integumentary Integumentary: Present: clear, warm - Psychiatric Psychiatric: other (intubated on vent) - Neurologic Neurologic: other (intubated on vent) Results - Labs CBC & Chem 7: 01/24/19 05:40 01/24/19 05:40 Labs: Laboratory Last Values WBC 7.1 K/mm3 (4.5-11.0) 01/24/19 05:40 RBC 4.11 M/mm3 (3.65-5.03) 01/24/19 05:40 Hgb 10.8 gm/dl (10.1-14.3) 01/24/19 05:40 Hct 34.5 % (30.3-42.9) D 01/24/19 05:40 MCV 84 fl (79-97) 01/24/19 05:40 MCH 26 pg (28-32) L 01/24/19 05:40 MCHC 31 % (30-34) 01/24/19 05:40 RDW 18.3 % (13.2-15.2) H 01/24/19 05:40 Plt Count 109 K/mm3 (140-440) L 01/24/19 05:40 Lymph % (Auto) 9.1 % (13.4-35.0) L 01/23/19 04:29 [place] % (Auto) 11.4 % (0.0-7.3) H 01/23/19 04:29 Eos % (Auto) 0.7 % (0.0-4.3) 01/23/19 04:29 Baso % (Auto) 0.5 % (0.0-1.8) 01/23/19 04:29 Lymph # 0.4 K/mm3 (1.2-5.4) L 01/23/19 04:29 [place] # 0.6 K/mm3 (0.0-0.8) 01/23/19 04:29 Eos # 0.0 K/mm3 (0.0-0.4) 01/23/19 04:29 Baso # 0.0 K/mm3 (0.0-0.1) 01/23/19 04:29 Add Manual Diff Complete 01/22/19 Unknown Total Counted 100 01/22/19 Unknown Seg Neutrophils % 78.3 % (40.0-70.0) H 01/23/19 04:29 Seg Neuts % (Manual) 60.0 % (40.0-70.0) 01/22/19 Unknown 1.0 % 01/22/19 Unknown 25.0 % (13.4-35.0) 01/22/19 Unknown Reactive Lymphs % (Man) 0 % 01/22/19 Unknown 11.0 % (0.0-7.3) H 01/22/19 Unknown 0 % (0.0-4.3) 01/22/19 Unknown 0 % (0.0-1.8) 01/22/19 Unknown 3.0 % 01/22/19 Unknown 0 % 01/22/19 Unknown 0 % 01/22/19 Unknown 0 % 01/22/19 Unknown Nucleated RBC % Not Reportable 01/22/19 Unknown Seg Neutrophils # 3.9 K/mm3 (1.8-7.7) 01/23/19 04:29 Seg Neutrophils # Man 4.3 K/mm3 (1.8-7.7) 01/22/19 Unknown Band Neutrophils # 0.1 K/mm3 01/22/19 Unknown 1.8 K/mm3 (1.2-5.4) 01/22/19 Unknown Abs React Lymphs (Man) 0.0 K/mm3 01/22/19 Unknown 0.8 K/mm3 (0.0-0.8) 01/22/19 Unknown 0.0 K/mm3 (0.0-0.4) 01/22/19 Unknown 0.0 K/mm3 (0.0-0.1) 01/22/19 Unknown 0.2 K/mm3 01/22/19 Unknown 0.0 K/mm3 01/22/19 Unknown 0.0 K/mm3 01/22/19 Unknown Blast Cells # 0.0 K/mm3 01/22/19 Unknown WBC Morphology Not Reportable 01/22/19 Unknown Hypersegmented Neuts Not Reportable 01/22/19 Unknown Hyposegmented Neuts Not Reportable 01/22/19 Unknown Hypogranular Neuts Not Reportable 01/22/19 Unknown Not Reportable 01/22/19 Unknown Not Reportable 01/22/19 Unknown Not Reportable 01/22/19 Unknown Not Reportable 01/22/19 Unknown Not Reportable 01/22/19 Unknown Not Reportable 01/22/19 Unknown Consistent w auto 01/22/19 Unknown Not Reportable 01/22/19 Unknown Plt Clumps, EDTA Not Reportable 01/22/19 Unknown Few 01/22/19 Unknown Not Reportable 01/22/19 Unknown Not Reportable 01/22/19 Unknown Plt Morphology Comment Not Reportable 01/22/19 Unknown RBC Morphology Not Reportable 01/22/19 Unknown Dimorphic RBCs Not Reportable 01/22/19 Unknown Not Reportable 01/22/19 Unknown Not Reportable 01/22/19 Unknown Not Reportable 01/22/19 Unknown Not Reportable 01/22/19 Unknown Not Reportable 01/22/19 Unknown Not Reportable 01/22/19 Unknown Not Reportable 01/22/19 Unknown Not Reportable 01/22/19 Unknown Not Reportable 01/22/19 Unknown Not Reportable 01/22/19 Unknown Few 01/22/19 Unknown Not Reportable 01/22/19 Unknown Not Reportable 01/22/19 Unknown Not Reportable 01/22/19 Unknown Not Reportable 01/22/19 Unknown Not Reportable 01/22/19 Unknown Not Reportable 01/22/19 Unknown Not Reportable 01/22/19 Unknown Few 01/22/19 Unknown Acanthocytes (Spur) Not Reportable 01/22/19 Unknown Rouleaux Not Reportable 01/22/19 Unknown Not Reportable 01/22/19 Unknown Rare 01/22/19 Unknown Not Reportable 01/22/19 Unknown Not Reportable 01/22/19 Unknown Hem Pathologist Commnt No 01/22/19 Unknown POC ABG pH 7.378 (7.35-7.45) 01/24/19 03:20 POC ABG pCO2 43.4 (35-45) 01/24/19 03:20 POC ABG pO2 114 (80-105) H 01/24/19 03:20 POC ABG HCO3 25.6 (22-26 mml/L) 01/24/19 03:20 POC ABG Total CO2 27 (23-27mmol/L) 01/24/19 03:20 POC ABG O2 Sat 98 01/24/19 03:20 POC ABG Base Excess 0 ((-2) - (+3)mmol/L) 01/24/19 03:20 35 % 01/24/19 03:20 Sodium 139 mmol/L (137-145) 01/24/19 05:40 Potassium 4.5 mmol/L (3.6-5.0) D 01/24/19 05:40 Chloride 99.9 mmol/L (98-107) 01/24/19 05:40 Carbon Dioxide 22 mmol/L (22-30) 01/24/19 05:40 22 mmol/L 01/24/19 05:40 BUN 37 mg/dL (7-17) H 01/24/19 05:40 3.9 mg/dL (0.7-1.2) H 01/24/19 05:40 Estimated GFR 13 ml/min 01/24/19 05:40 9 % 01/24/19 05:40 Glucose 142 mg/dL (65-100) H 01/24/19 05:40 POC Glucose 150 (70-105) H 01/24/19 05:25 Lactic Acid 1.70 mmol/L (0.7-2.0) 01/22/19 15:35 Calcium 8.2 mg/dL (8.4-10.2) L D 01/24/19 05:40 Magnesium 2.70 mg/dL (1.7-2.3) H 01/24/19 05:40 0.30 mg/dL (0.1-1.2) 01/23/19 04:29 AST 26 units/L (5-40) 01/23/19 04:29 ALT 25 units/L (7-56) 01/23/19 04:29 112 units/L (35-129) 01/23/19 04:29 0.133 ng/mL (0.00-0.029) H* 01/22/19 Unknown 1.30 mg/dL (0.00-1.30) 01/22/19 15:35 NT-Pro-B Natriuret Pep 03676 pg/mL (0-900) H 01/23/19 04:29 4.7 g/dL (6.3-8.2) L D 01/23/19 04:29 2.2 g/dL (3.9-5) L 01/23/19 04:29 0.9 % 01/23/19 04:29 Triglycerides 111 mg/dL (2-149) 01/22/19 Unknown Cholesterol 153 mg/dL (50-199) 01/22/19 Unknown 79 mg/dL (50-130) 01/22/19 Unknown 62 mg/dL (40-59) H 01/22/19 Unknown 2.46 % 01/22/19 Unknown Acetaminophen < 5.0 ug/mL (10.0-30.0) L 01/22/19 15:35 Hepatitis A IgM Ab Non-reactive (NonReactive) 01/22/19 15:35 Hep Bs Antigen Non-reactive (Negative) 01/22/19 15:35 Hep B Core IgM Ab Non-reactive (NonReactive) 01/22/19 15:35 Non-reactive (NonReactive) 01/22/19 15:35 Blood Type B POSITIVE 01/22/19 11:53 WOODY Antibody Screen Negative 01/22/19 11:53 Active Medications - Current Medications Current Medications: Generic Name Dose Route Start Last Admin Trade Name Freq PRN Reason Stop Dose Admin Albuterol 2.5 mg 01/22/19 12:23 Proventil IH Q3H PRN Shortness Of Breath Lipase/Protease/Amylase 1 each 01/23/19 11:21 Pancreaze 10,500 Unit FEEDTUBE PRN PRN For Clogged Feeding Tube Aspirin 81 mg 01/23/19 10:00 01/23/19 10:07 Halfprin Ec PO 81 mg QDAY LUCIO Administration Clopidogrel Bisulfate 75 mg 01/23/19 10:00 01/23/19 10:10 Plavix PO 75 mg QDAY LUCIO Administration Dextrose 50 ml 01/23/19 06:43 D50w (25gm) Syringe IV PRN PRN Hypoglycemia Famotidine 20 mg 01/24/19 10:00 Pepcid PO DAILY LUCIO Fentanyl 50 mcg 01/22/19 09:33 Sublimaze IV Q10MIN PRN ANALGESIA Ferrous Sulfate 308 mg 01/24/19 10:00 Ferrous Sulfate FEEDTUBE DAILY LUCIO Hydrophilic Ointment 1 applic 01/22/19 09:33 Vaseline Lip Therapy TP Q2HR PRN Dry Lips Fentanyl Citrate 2,000 mcg in 100 mls @ 3.175 mls/hr 01/22/19 10:00 01/24/19 03:00 Fentanyl Drip Premix IV 0.5 mcg/kg/hr TITR LUCIO 1.588 mls/hr Titration Protocol 1 MCG/KG/HR Midazolam HCl 100 mg/ Sodium 100 mls @ 2 mls/hr 01/22/19 11:00 01/24/19 07:07 Chloride IV 0 mg/hr TITR LUCIO 0 mls/hr Titration Protocol 2 MG/HR Cefepime HCl 1 gm in 100 mls @ 200 mls/hr 01/23/19 18:00 01/23/19 18:22 Maxipime/Ns 1 Gm/100 Ml IV 200 mls/hr QPM LUCIO Administration Insulin Human Lispro 0 unit 01/23/19 12:00 01/24/19 08:35 Humalog SUB-Q Not Given Q6HR LUCIO Protocol Midazolam HCl 2 mg 01/22/19 09:33 Versed IV Q10MIN PRN Sedation Multi-Ingred Cream/Lotion/Oil/Oint 1 applic 01/22/19 09:33 Artificial Tears Ophth Oint OU Q4HR PRN Dry Eye(s) Pravastatin Sodium 20 mg 01/22/19 22:00 01/23/19 22:53 Pravachol PO 20 mg QHS LUCIO Administration Simple Syrup 15 ml 01/23/19 11:21 Simple Syrup FEEDTUBE PRN PRN Hypoglycemia Simple Syrup 30 ml 01/23/19 11:21 Simple Syrup FEEDTUBE PRN PRN Hypoglycemia Sodium Bicarbonate 325 mg 01/23/19 11:21 Sodium Bicarbonate FEEDTUBE PRN PRN For Clogged Feeding Tube Sodium Chloride 10 ml 01/22/19 22:00 01/23/19 22:53 Sodium Chloride Flush Syringe 10 Ml IV 10 ml BID LUCIO Administration Sodium Chloride 10 ml 01/22/19 12:23 Sodium Chloride Flush Syringe 10 Ml IV PRN PRN LINE FLUSH Nutrition/Malnutrition Assess - Dietary Evaluation Nutrition/Malnutrition Findings: Nutrition Notes Start: 01/23/19 10:56 Freq: Status: Active Protocol: Document 01/23/19 10:56 RM (Rec: 01/23/19 11:09 RM [id number]) Nutrition Notes Need for Assessment generated from: MD Order Initial or Follow up Assessment Current Diagnosis Diabetes,Hypertension, Respiratory Failure,Stroke Other Pertinent Diagnosis ESRD on HD (T/R/Sa), PVD, Pneu Current Diet NPO Labs/Tests Reviewed Pertinent Medications Reviewed Height 5 ft 6 in Weight 63.503 kg [place] Body Weight (kg) 59.09 BMI 22.6 Subjective/Other Information Consulted for TF recommendation. Pt on vent. Burn Absent Trauma Absent #1 Nutrition Diagnosis Inadequate oral intake Etiology on vent As Evidenced by Signs and Symptoms NPO status Is patient on ventilator? Yes Is Patient Ambulatory and/or Out of Bed No REE-([facility]-confined to bed) [phone] Calculation Used for Recommendations [facility] Additional Notes Protein Needs: 76-127g (1.2-2g /kg) Fluid Needs: 1 ml/kcal Nutrition Intervention Nutrition Support: Glucerna 1.2 at 50 ml/hr. Water flush of 80 ml q 4 hrs. Kcal 1,440 Protein (gm) 72 Fluid (mL) 966 Goal #1 TF tolerance Goal #2 Meet at least 80% of calorie and protein needs via TF Follow-Up By: 01/25/19 Additional Comments Follow TF tolerance, renal labs
[2019-01-24] MEDS ORDERED: NACL 0.9% 100 ML IV PRN ×2 (10:50→16:49)
--- NOTE | 2019-01-24 10:51 | Progress Note ---
Assessment and Plan - Patient Problems (1) ESRD needing dialysis Current Visit: Yes Status: Acute Plan to address problem: no acute indications for urgent HD at present. will cont maintenance HD on TTS schedule (2) Cardiac arrest Current Visit: Yes Status: Acute Plan to address problem: s/p ALCS with return of spontaneous circulation, currently off vasopressors. follow cardiology recommendations. (3) Acute respiratory failure Current Visit: Yes Status: Acute Qualifiers: Respiratory failure complication: unspecified whether with hypoxia or hypercapnia Qualified Code(s): J96.00 - Acute respiratory failure, unspecified whether with hypoxia or hypercapnia Plan to address problem: vent management as per pulmonary/CCM (4) HTN (hypertension) Current Visit: Yes Status: Acute Qualifiers: Hypertension type: essential hypertension Qualified Code(s): I10 - Essential (primary) hypertension Plan to address problem: off antihypertensives s/p cardiac arrest. Will monitor BP and resume home meds as indicated (5) Pneumonia Current Visit: Yes Status: Acute Qualifiers: Pneumonia type: due to unspecified organism Laterality: bilateral Lung location: upper lobe of lung Qualified Code(s): J18.1 - Lobar pneumonia, unspecified organism Plan to address problem: started on empiric ABXs, dose all meds for HD (6) Anemia Current Visit: No Status: Acute Qualifiers: Anemia type: unspecified type Qualified Code(s): D64.9 - Anemia, unspecified Plan to address problem: start EPO with HD Subjective Date of service: 01/24/19 Principal diagnosis: Acute hypoxemic resp failure; S/P cardiac arrest; ESRD on dialysis; DM II Interval history: Pt remains intubated, grimacing on pain stimuli, being weaned, currently on CPAP trial. Objective - Vital Signs Vital signs: Vital Signs - 12hr 01/23/19 01/24/19 01/24/19 23:56 00:00 00:12 Temperature 98.3 F Pulse Rate 83 Pulse Rate [ 79 From Monitor] Respiratory 12 Rate Blood Pressure 125/65 O2 Sat by Pulse 100 100 Oximetry 01/24/19 01/24/19 01/24/19 02:00 03:20 04:00 Temperature 98.1 F Pulse Rate 77 Pulse Rate [ 78 78 From Monitor] Respiratory 11 L 11 L Rate Blood Pressure 123/60 O2 Sat by Pulse 100 100 100 Oximetry 01/24/19 01/24/19 01/24/19 06:00 08:00 08:15 Temperature Pulse Rate 83 79 Pulse Rate [ 77 77 From Monitor] Respiratory 12 12 8 L Rate Blood Pressure 142/69 135/61 O2 Sat by Pulse 100 100 100 Oximetry 01/24/19 10:00 Temperature Pulse Rate Pulse Rate [ 79 From Monitor] Respiratory 12 Rate Blood Pressure O2 Sat by Pulse 100 Oximetry - General Appearance General appearance: sedated on ventilator, intubated EENT: ATNC, PERRL, mucous membranes moist Neck: no JVD Respiratory: Present: Clear to Ascultation Cardiology: regular, S1S2 Gastrointestinal: normoactive bowel sounds Integumentary: no rash, other (no edema ) Neurologic: other (on vent ) - Lab 01/24/19 05:40 01/24/19 05:40 Most recent lab results Calcium 8.2 mg/dL (8.4-10.2) L D 01/24/19 05:40 Magnesium 2.70 mg/dL (1.7-2.3) H 01/24/19 05:40 Medications & Allergies - Medications Allergies/Adverse Reactions: Allergies phenytoin sodium [From Dilantin] Allergy (Verified 05/08/16 07:07) Anaphylaxis phenytoin sodium extended [From Dilantin] Allergy (Verified 05/08/16 07:07) Anaphylaxis Home Medications: Home Medications Medication Instructions Recorded Confirmed Last Taken Type Ferrous Sulfate [Iron 325 MG] 325 mg PO DAILY 01/04/19 01/22/19 01/03/19 History Aspirin EC 81 mg PO QDAY #30 tablet. 01/07/19 01/22/19 Unknown Rx Clopidogrel [Plavix] 75 mg PO QDAY #30 tablet 01/07/19 01/22/19 Unknown Rx Losartan [Cozaar] 100 mg PO DAILY 30 Days #30 tablet 01/07/19 01/22/19 Unknown Rx Metoprolol [Lopressor TAB] 50 mg PO BID #60 tablet 01/07/19 01/22/19 Unknown Rx Pravastatin [Pravachol] 20 mg PO QHS #30 tablet 01/07/19 01/22/19 Unknown Rx Active Medications: Generic Name Dose Route Start Last Admin Trade Name Freq PRN Reason Stop Dose Admin Albuterol 2.5 mg 01/22/19 12:23 Proventil IH Q3H PRN Shortness Of Breath Lipase/Protease/Amylase 1 each 01/23/19 11:[address] 10,500 Unit FEEDTUBE PRN PRN For Clogged Feeding Tube Aspirin 81 mg 01/23/19 10:00 01/23/19 10:07 Halfprin Ec PO 81 mg QDAY LUCIO Administration Clopidogrel Bisulfate 75 mg 01/23/19 10:00 01/23/19 10:10 Plavix PO 75 mg QDAY LUCIO Administration Dextrose 50 ml 01/23/19 06:43 D50w (25gm) Syringe IV PRN PRN Hypoglycemia Famotidine 20 mg 01/24/19 10:00 Pepcid PO DAILY LUCIO Fentanyl 50 mcg 01/22/19 09:33 Sublimaze IV Q10MIN PRN ANALGESIA Ferrous Sulfate 308 mg 01/24/19 10:00 Ferrous Sulfate FEEDTUBE DAILY LUCIO Hydrophilic Ointment 1 applic 01/22/19 09:33 Vaseline Lip Therapy TP Q2HR PRN Dry Lips Fentanyl Citrate 2,000 mcg in 100 mls @ 3.175 mls/hr 01/22/19 10:00 01/24/19 03:00 Fentanyl Drip Premix IV 0.5 mcg/kg/hr TITR LUCIO 1.588 mls/hr Titration Protocol 1 MCG/KG/HR Midazolam HCl 100 mg/ Sodium 100 mls @ 2 mls/hr 01/22/19 11:00 01/24/19 07:07 Chloride IV 0 mg/hr TITR LUCIO 0 mls/hr Titration Protocol 2 MG/HR Cefepime HCl 1 gm in 100 mls @ 200 mls/hr 01/23/19 18:00 01/23/19 18:22 Maxipime/Ns 1 Gm/100 Ml IV 200 mls/hr QPM LUCIO Administration Insulin Human Lispro 0 unit 01/23/19 12:00 01/24/19 08:35 Humalog SUB-Q Not Given Q6HR [facility] Protocol Midazolam HCl 2 mg 01/22/19 09:33 Versed IV Q10MIN PRN Sedation Multi-Ingred Cream/Lotion/Oil/Oint 1 applic 01/22/19 09:33 Artificial Tears Ophth Oint OU Q4HR PRN Dry Eye(s) Pravastatin Sodium 20 mg 01/22/19 22:00 01/23/19 22:53 Pravachol PO 20 mg QHS LUCIO Administration Simple Syrup 15 ml 01/23/19 11:21 Simple Syrup FEEDTUBE PRN PRN Hypoglycemia Simple Syrup 30 ml 01/23/19 11:21 Simple Syrup FEEDTUBE PRN PRN Hypoglycemia Sodium Bicarbonate 325 mg 01/23/19 11:21 Sodium Bicarbonate FEEDTUBE PRN PRN For Clogged Feeding Tube Sodium Chloride 10 ml 01/22/19 22:00 01/23/19 22:53 Sodium Chloride Flush Syringe 10 Ml IV 10 ml BID LUCIO Administration Sodium Chloride 10 ml 01/22/19 12:23 Sodium Chloride Flush Syringe 10 Ml IV PRN PRN LINE FLUSH
[2019-01-24] MEDS: FERROUS SULFATE FEEDTUBE SCH (12:04)
[2019-01-24] MEDS: HALFPRIN EC PO SCH (12:04)
[2019-01-24] MEDS: PEPCID PO SCH (12:05)
[2019-01-24] MEDS: PLAVIX PO SCH (12:05)
[2019-01-24] MEDS: SODIUM CHLORIDE FLUSH SYRINGE 10 ML IV SCH ×2 (12:06→22:09)
--- NOTE | 2019-01-24 12:46 | Progress Note ---
Assessment and Plan Acute hypoxemic respiratory failure, on mechanical ventilatory support. Status post cardiac arrest with return of spontaneous circulation. End-stage renal disease, on dialysis. Diabetes type 2. Hypertension. History of cerebrovascular accident. Peripheral vascular disease. History of pulmonary hypertension. - resume daily SBT's as tolerated (will resume after todays dialysis session) - ABG after 2 hours and if acceptable will give trial of extubation - continue bronchodilators with routine trach care and pulmonary hygiene per RT - sedation target for RASS 0 to -1 (daily SAT's as tolerated) - continue GI & VTE prophylaxis - continue to wean supplemental oxygen to keep O2 sats 88-90% - Lung protective strategies - VAP bundle addressed - continue HD/UF for toxin and volume clearance - continue empiric antibiotics and de-escalate based on clinical and microbiologic data (Cultures NGTD) - Continue cardioprotective measures (cardiology evaluation ongoing) - Continue to rest at night on full MVS - Monitor renal indices closely - Avoid nephrotoxic agents, adjust all medications for CrCL - Strict intake and output monitoring - continue enteral nutrition as tolerated - continue accuchecks with glycemic control per SSI for target glucose of 140- 180 mg/dL - Maintenance of sleep -wake cycle - Mobility as tolerated by hemodynamics - Influenza and pneumonia vaccination per protocol - discharge planning ongoing concurrently .... care plan discussed with family in room PROGNOSIS: GUARDED CONDITION: CRITICAL CODE STATUS: FULL CODE The high probability of a clinically significant, sudden or life-threatening deterioration of the [respiratory, cardiac & renal] system(s) required my full and direct attention, intervention and personal management. The aggregate critical care time was [31] minutes without overlap. Time includes spent on; [x] Data Review and interpretation [x] Patient assessment and monitoring of vital signs [x] Documentation [x] Medication orders and management Subjective Date of service: 01/24/19 Principal diagnosis: Acute hypoxemic resp failure; S/P cardiac arrest; ESRD on dialysis; DM II Interval history: Patient is seen today for: Acute hypoxemic resp failure on MVS; S/P cardiac arrest with ROSC; ESRD on dialysis; DM II; HTN; H/O CVA; PVD; H/O pulmonary hypertension. Seen and examined at bedside; 24hour events reviewed; nursing and respiratory care staff consulted; no adverse overnight events reported to me; remains on MVS; resting peacefully in bed; for dialysis today; somnolent but answers appropriately; denies acute chest pains; No N/V/F/C Objective Vital Signs - 12hr 01/24/19 01/24/19 01/24/19 02:00 03:20 04:00 Temperature 98.1 F Pulse Rate 77 Pulse Rate [ 78 78 From Monitor] Respiratory 11 L 11 L Rate Blood Pressure 123/60 O2 Sat by Pulse 100 100 100 Oximetry 01/24/19 01/24/19 01/24/19 06:00 08:00 08:15 Temperature Pulse Rate 83 79 Pulse Rate [ 77 77 From Monitor] Respiratory 12 12 8 L Rate Blood Pressure 142/69 135/61 O2 Sat by Pulse 100 100 100 Oximetry 01/24/19 01/24/19 10:00 12:00 Temperature Pulse Rate 80 Pulse Rate [ 79 From Monitor] Respiratory 12 8 L Rate Blood Pressure 120/58 O2 Sat by Pulse 100 100 Oximetry Constitutional: appears uncomfortable, other (elderly looking AAF, normocephalic resting in bed on MVS) Eyes: non-icteric ENT: oropharynx moist, other (ETT 23 cm NAVEEN) Neck: supple, no lymphadenopathy, no JVD, other (no thyromegaly) Effort: mildly labored Ascultation: Bilateral: diminished breath sounds, rhonchi Percussion: Bilateral: not dull Cardiovascular: regular rate and rhythm, murmur noted (systolic) Gastrointestinal: normoactive bowel sounds, soft, non-tender, non-distended Integumentary: rash Extremities: no cyanosis, no edema, pulses normal, no ischemia or petechiae Neurologic: non-focal exam (grossly), pupils equal and round, CN II-XII normal, other (lethargic) Psychiatric: other (somnolent) CBC and BMP: 01/25/19 05:22 01/25/19 05:22 ABG, PT/INR, D-dimer: ABG POC ABG pH 7.378 (7.35-7.45) 01/24/19 03:20 POC ABG pCO2 43.4 (35-45) 01/24/19 03:20 POC ABG pO2 114 (80-105) H 01/24/19 03:20 POC ABG HCO3 25.6 (22-26 mml/L) 01/24/19 03:20 POC ABG Total CO2 27 (23-27mmol/L) 01/24/19 03:20 POC ABG O2 Sat 98 01/24/19 03:20 Abnormal lab findings: Abnormal Labs 01/22/19 01/22/19 01/22/19 09:27 11:09 15:07 RBC Hgb Hct MCH RDW Plt Count Lymph % (Auto) [place] % (Auto) Lymph # Seg Neutrophils % Monocytes % (Manual) POC ABG pO2 207 H Potassium Chloride Carbon Dioxide BUN Creatinine Glucose POC Glucose 113 H 134 H Calcium Magnesium AST ALT Alkaline Phosphatase Troponin T NT-Pro-B Natriuret Pep Total Protein Albumin HDL Cholesterol Acetaminophen 01/22/19 01/22/19 01/22/19 15:35 17:40 Unknown RBC Hgb Hct MCH 26 L RDW 17.3 H Plt Count Lymph % (Auto) [place] % (Auto) Lymph # Seg Neutrophils % Monocytes % (Manual) 11.0 H POC ABG pO2 Potassium Chloride Carbon Dioxide BUN Creatinine Glucose POC Glucose 121 H Calcium Magnesium AST ALT Alkaline Phosphatase Troponin T NT-Pro-B Natriuret Pep Total Protein Albumin HDL Cholesterol Acetaminophen < 5.0 L 01/22/19 01/23/19 01/23/19 Unknown 01:26 03:48 RBC Hgb Hct MCH RDW Plt Count Lymph % (Auto) [place] % (Auto) Lymph # Seg Neutrophils % Monocytes % (Manual) POC ABG pO2 138 H Potassium Chloride 96.2 L Carbon Dioxide BUN 20 H Creatinine 2.4 H Glucose 150 H POC Glucose 108 H Calcium Magnesium AST 109 H ALT 63 H Alkaline Phosphatase 227 H Troponin T 0.133 H* NT-Pro-B Natriuret Pep Total Protein Albumin 3.8 L HDL Cholesterol 62 H Acetaminophen 01/23/19 01/23/19 01/23/19 04:29 04:29 17:11 RBC 3.27 L Hgb 8.8 L Hct 26.8 L D MCH 27 L RDW 17.5 H Plt Count 100 L Lymph % (Auto) 9.1 L [place] % (Auto) 11.4 H Lymph # 0.4 L Seg Neutrophils % 78.3 H Monocytes % (Manual) POC ABG pO2 Potassium 3.0 L D Chloride 109.2 H Carbon Dioxide 18 L D BUN 23 H Creatinine 2.6 H Glucose POC Glucose 63 L Calcium 6.4 L D Magnesium 1.50 L AST ALT Alkaline Phosphatase Troponin T NT-Pro-B Natriuret Pep 99082 H Total Protein 4.7 L D Albumin 2.2 L HDL Cholesterol Acetaminophen 01/23/19 01/24/19 01/24/19 19:49 02:06 03:20 RBC Hgb Hct MCH RDW Plt Count Lymph % (Auto) [place] % (Auto) Lymph # Seg Neutrophils % Monocytes % (Manual) POC ABG pO2 113 H 114 H Potassium Chloride Carbon Dioxide BUN Creatinine Glucose POC Glucose 173 H Calcium Magnesium AST ALT Alkaline Phosphatase Troponin T NT-Pro-B Natriuret Pep Total Protein Albumin HDL Cholesterol Acetaminophen 01/24/19 01/24/19 01/24/19 05:25 05:40 05:40 RBC Hgb Hct MCH 26 L RDW 18.3 H Plt Count 109 L Lymph % (Auto) [place] % (Auto) Lymph # Seg Neutrophils % Monocytes % (Manual) POC ABG pO2 Potassium Chloride Carbon Dioxide BUN 37 H Creatinine 3.9 H Glucose 142 H POC Glucose 150 H Calcium 8.2 L D Magnesium 2.70 H AST ALT Alkaline Phosphatase Troponin T NT-Pro-B Natriuret Pep Total Protein Albumin HDL Cholesterol Acetaminophen Chest x-ray: image reviewed (ETT in good position; mild interstitial edema pattern; cardiomegaly) Allied health notes reviewed: nursing
[2019-01-24] MEDS ORDERED: VANCOMYCIN 750 MG in NACL 0.9% 250ML 250 ML IV SCH (13:00)
--- NOTE | 2019-01-24 13:04 | Progress Note ---
Assessment and Plan Out of the hospital cardiac arrest no strips available for cardiac review End stage renal disease on dialysis Dilated cardiomyopathy EF 10-15% 12/2018 noncompliant with outpatient lifevest Coronary artery disease status post PCI of the proximal LAD using a BMS done December 2017. Hx of PAD Chronic hypertesnion Hyperlipidemia Diabetes Subjective Date of service: 01/24/19 Principal diagnosis: Acute hypoxemic resp failure; S/P cardiac arrest; ESRD on dialysis; DM II Interval history: Remains intubated on the vent. Objective Vital Signs Temp Pulse Pulse Resp BP Pulse Ox 01/24/19 12:00 80 8 L 120/58 100 01/24/19 10:00 79 12 100 01/24/19 08:15 79 8 L 135/61 100 01/24/19 08:00 83 77 12 142/69 100 01/24/19 06:00 77 12 100 01/24/19 04:00 98.1 F 78 11 L 100 01/24/19 03:20 77 123/60 100 01/24/19 02:00 78 11 L 100 01/24/19 00:12 83 125/65 100 01/24/19 00:00 79 12 100 01/23/19 23:56 98.3 F 01/23/19 22:00 83 79 12 100 01/23/19 20:00 98.0 F 82 11 L 100 01/23/19 19:49 83 10 L 125/65 100 01/23/19 18:00 74 12 100 01/23/19 17:30 83 11 L 125/65 100 01/23/19 16:00 74 12 100 01/23/19 15:59 97.7 F 01/23/19 15:50 74 100/50 100 01/23/19 14:00 74 12 100 - Physical Examination Neck: Positive: neck supple Abdomen: Positive: Soft Extremities: Absent: edema (left transmetatarsal amputation) - Labs and Meds CBC 01/24/19 Range/Units 05:40 WBC 7.1 (4.5-11.0) K/mm3 RBC 4.11 (3.65-5.03) M/mm3 Hgb 10.8 (10.1-14.3) gm/dl Hct 34.5 D (30.3-42.9) % Plt Count 109 L (140-440) K/mm3 Comprehensive Metabolic Panel 01/24/19 Range/Units 05:40 Sodium 139 (137-145) mmol/L Potassium 4.5 D (3.6-5.0) mmol/L Chloride 99.9 (98-107) mmol/L Carbon Dioxide 22 (22-30) mmol/L BUN 37 H (7-17) mg/dL Creatinine 3.9 H (0.7-1.2) mg/dL Glucose 142 H (65-100) mg/dL Calcium 8.2 L D (8.4-10.2) mg/dL - Allied health notes Allied health notes reviewed: nursing
[2019-01-24] MEDS ORDERED: NACL 0.9% 1000 ML 2,000 ML ONE (17:46)
[2019-01-24] MEDS: MAXIPIME/NS 1 GM/100 ML 1 GM/100 ML BAG IV SCH (18:29)
[2019-01-24] MEDS: LOVENOX SUB-Q SCH (22:08)
[2019-01-24] MEDS: PRAVACHOL PO SCH (22:09)
--- NOTE | 2019-01-25 05:12 | XRay Report ---
PROCEDURE: XR CHEST 1V AP TECHNIQUE: Chest radiograph single view. HISTORY: follow up respiratory failure COMPARISONS: 01/24/2019 . FINDINGS: Heart: Normal. Mediastinum/Vessels: The lungs are not overtly congested.. Lungs/Pleural space: There are no localized infiltrates or effusions.. Bony thorax: No acute osseous abnormality. Life support devices: The ET tube and NG tube appear in good position. There is stable right-sided va scular stent noted.. IMPRESSION: No acute infiltrates or congestion.. This document is electronically signed by Ap Pelaez MD., January 25 2019 06:10:48 AM ET
[2019-01-25] MEDS: HumaLOG SUB-Q SCH ×3 (05:21→18:00)
[2019-01-25 06:13] LABS: Basophils # (Auto) 0.1 K/mm3 (0.0-0.1); Basophils % (Auto) 0.5 % (0.0-1.8); Hematocrit 31.6 % (30.3-42.9); Hemoglobin 10.3 gm/dl (10.1-14.3); Lymphocytes # (Auto) 0.4 K/mm3 (1.2-5.4); Lymphocytes % (Auto) 3.3 % (13.4-35.0); Mean Corpuscular HGB Conc 33 % (30-34); Mean Corpuscular Volume 81 fl (79-97); Monocytes # (Auto) 0.8 K/mm3 (0.0-0.8); Monocytes % (Auto) 6.2 % (0.0-7.3); Platelet Count 120 K/mm3 (140-440); Red Cell Distribution Width 17.7 % (13.2-15.2)
[2019-01-25] MEDS: HALFPRIN EC PO SCH (09:46)
[2019-01-25] MEDS: FERROUS SULFATE FEEDTUBE SCH (09:46)
[2019-01-25] MEDS: PLAVIX PO SCH (09:46)
[2019-01-25] MEDS: PEPCID PO SCH (09:46)
[2019-01-25] MEDS: SODIUM CHLORIDE FLUSH SYRINGE 10 ML IV SCH ×2 (09:47→22:01)
--- NOTE | 2019-01-25 10:48 | Progress Note ---
Assessment and Plan - Patient Problems (1) ESRD needing dialysis Current Visit: Yes Status: Acute Plan to address problem: HD performed last evening to facilitate weaning. will cont maintenance HD on MWF schedule (2) Cardiac arrest Current Visit: Yes Status: Acute Plan to address problem: s/p ALCS with return of spontaneous circulation, currently off vasopressors. follow cardiology recommendations. (3) Acute respiratory failure Current Visit: Yes Status: Acute Qualifiers: Respiratory failure complication: unspecified whether with hypoxia or hyperca pnia Qualified Code(s): J96.00 - Acute respiratory failure, unspecified w hether with hypoxia or hypercapnia Plan to address problem: vent management as per pulmonary/CCM (4) HTN (hypertension) Current Visit: Yes Status: Acute Qualifiers: Hypertension type: essential hypertension Qualified Code(s): I10 - Essential (primary) hypertension Plan to address problem: off antihypertensives s/p cardiac arrest. Will monitor BP and resume home meds as indicated (5) Pneumonia Current Visit: Yes Status: Acute Qualifiers: Pneumonia type: due to unspecified organism Laterality: bilateral Lung location: upper lobe of lung Qualified Code(s): J18.1 - Lobar pneumonia, unspecified organism Plan to address problem: started on empiric ABXs, dose all meds for HD (6) Anemia Current Visit: No Status: Acute Qualifiers: Anemia type: unspecified type Qualified Code(s): D64.9 - Anemia, unspecified Plan to address problem: start EPO with HD Subjective Date of service: 01/25/19 Principal diagnosis: Acute hypoxemic resp failure; S/P cardiac arrest; ESRD on dialysis; DM II Interval history: Pt remains intubated, grimacing on pain stimuli, being weaned, currently on CPAP trial. Objective - Vital Signs Vital signs: Vital Signs - 12hr 01/24/19 01/24/19 01/24/19 22:51 23:00 23:02 Temperature Pulse Rate 103 H 99 H 97 H Respiratory 17 14 14 Rate Blood Pressure 133/62 143/56 133/62 O2 Sat by Pulse 100 100 99 Oximetry 01/24/19 01/24/19 01/24/19 23:04 23:05 23:11 Temperature 98.5 F Pulse Rate 89 106 H Respiratory 20 Rate Blood Pressure 143/56 O2 Sat by Pulse 99 Oximetry 01/24/19 01/24/19 01/24/19 23:21 23:29 23:31 Temperature Pulse Rate 95 H 93 H 92 H Respiratory 13 13 12 Rate Blood Pressure 143/56 143/56 143/56 O2 Sat by Pulse 100 100 100 Oximetry 01/24/19 01/24/19 01/24/19 23:41 23:44 23:51 Temperature Pulse Rate 89 95 H 92 H Respiratory 14 13 12 Rate Blood Pressure 143/56 143/56 143/56 O2 Sat by Pulse 100 100 100 Oximetry 01/25/19 01/25/19 01/25/19 00:00 00:11 00:21 Temperature Pulse Rate 97 H 96 H 91 H Respiratory 18 14 10 L Rate Blood Pressure 144/68 144/68 144/68 O2 Sat by Pulse 100 100 100 Oximetry 01/25/19 01/25/19 01/25/19 00:31 00:41 00:51 Temperature Pulse Rate 89 87 87 Respiratory 14 13 14 Rate Blood Pressure 144/68 144/68 144/68 O2 Sat by Pulse 100 100 100 Oximetry 01/25/19 01/25/19 01/25/19 01:00 01:11 01:21 Temperature Pulse Rate 87 87 86 Respiratory 13 13 12 Rate Blood Pressure 123/58 123/58 123/58 O2 Sat by Pulse 100 99 100 Oximetry 01/25/19 01/25/19 01/25/19 01:31 01:41 01:51 Temperature Pulse Rate 92 H 99 H 101 H Respiratory 12 17 18 Rate Blood Pressure 123/58 123/58 123/58 O2 Sat by Pulse 100 99 Oximetry 01/25/19 01/25/19 01/25/19 02:00 02:11 02:20 Temperature Pulse Rate 97 H 92 H Respiratory 12 13 14 Rate Blood Pressure 150/70 123/58 O2 Sat by Pulse 100 Oximetry 01/25/19 01/25/19 01/25/19 02:21 02:31 02:41 Temperature Pulse Rate 97 H 96 H 92 H Respiratory 12 13 13 Rate Blood Pressure 123/58 123/58 123/58 O2 Sat by Pulse 100 Oximetry 01/25/19 01/25/19 01/25/19 02:51 03:00 03:11 Temperature Pulse Rate 94 H 95 H 94 H Respiratory 15 15 14 Rate Blood Pressure 123/58 134/79 134/79 O2 Sat by Pulse 99 100 Oximetry 01/25/19 01/25/1919 03:21 03:23 03:31 Temperature 98.8 F Pulse Rate 91 H 91 H Respiratory 12 15 Rate Blood Pressure 134/79 134/79 O2 Sat by Pulse 100 100 Oximetry 01/25/19 01/25/19 01/25/19 03:41 03:51 04:00 Temperature Pulse Rate 93 H 88 88 Respiratory 17 13 12 Rate Blood Pressure 134/79 134/79 132/76 O2 Sat by Pulse 100 100 100 Oximetry 01/25/19 01/25/19 01/25/19 04:11 04:21 04:31 Temperature Pulse Rate 88 90 88 Respiratory 14 14 13 Rate Blood Pressure 132/76 132/76 132/76 O2 Sat by Pulse 100 100 100 Oximetry 01/25/19 01/25/19 01/25/19 04:41 04:51 05:00 Temperature Pulse Rate 87 87 87 Respiratory 12 12 12 Rate Blood Pressure 132/76 132/76 137/64 O2 Sat by Pulse 100 Oximetry 01/25/19 01/25/19 01/25/19 05:04 05:11 05:21 Temperature Pulse Rate 94 H 88 92 H Respiratory 11 L 18 Rate Blood Pressure 132/76 132/76 O2 Sat by Pulse 93 Oximetry 01/25/19 01/25/19 01/25/19 05:31 05:36 05:41 Temperature Pulse Rate 89 94 H 87 Respiratory 13 14 13 Rate Blood Pressure 132/76 132/76 O2 Sat by Pulse 100 100 Oximetry 01/25/19 01/25/19 01/25/19 05:51 06:00 06:11 Temperature Pulse Rate 86 88 87 Respiratory 14 12 11 L Rate Blood Pressure 132/76 138/64 138/64 O2 Sat by Pulse 100 Oximetry 01/25/19 01/25/19 01/25/19 06:21 06:31 06:41 Temperature Pulse Rate 88 86 89 Respiratory 14 13 14 Rate Blood Pressure 138/64 138/64 138/64 O2 Sat by Pulse 98 Oximetry 01/25/19 01/25/19 01/25/19 06:51 07:00 07:11 Temperature Pulse Rate 89 85 84 Respiratory 15 14 13 Rate Blood Pressure 138/64 128/61 128/61 O2 Sat by Pulse 100 96 Oximetry 01/25/19 01/25/19 01/25/19 07:21 07:31 07:41 Temperature Pulse Rate 85 88 93 H Respiratory 13 14 14 Rate Blood Pressure 138/64 138/64 138/64 O2 Sat by Pulse 94 88 Oximetry 01/25/19 01/25/19 01/25/19 07:51 08:00 08:11 Temperature 97.8 F Pulse Rate 88 87 87 Respiratory 14 14 14 Rate Blood Pressure 138/64 138/64 138/64 O2 Sat by Pulse Oximetry 01/25/19 01/25/19 01/25/19 08:21 08:24 08:31 Temperature Pulse Rate 86 85 91 H Respiratory 13 19 Rate Blood Pressure 128/61 128/61 O2 Sat by Pulse 98 Oximetry 01/25/19 01/25/19 01/25/19 08:41 08:51 09:00 Temperature Pulse Rate 89 86 84 Respiratory 16 13 12 Rate Blood Pressure 128/61 128/61 131/59 O2 Sat by Pulse 100 Oximetry 01/25/19 01/25/19 01/25/19 09:11 09:21 09:31 Temperature Pulse Rate 84 91 H 89 Respiratory 12 12 17 Rate Blood Pressure 131/59 131/59 131/59 O2 Sat by Pulse Oximetry 01/25/19 01/25/19 01/25/19 09:41 09:51 10:00 Temperature Pulse Rate 91 H 84 83 Respiratory 16 11 L 13 Rate Blood Pressure 131/59 131/59 123/60 O2 Sat by Pulse 100 Oximetry 01/25/19 01/25/19 10:11 10:32 Temperature Pulse Rate 87 83 Respiratory 12 14 Rate Blood Pressure 123/60 123/60 O2 Sat by Pulse 100 100 Oximetry - General Appearance General appearance: well-developed, appears stated age, intubated EENT: ATNC, PERRL, mucous membranes moist Neck: no JVD Respiratory: Present: Clear to Ascultation Cardiology: regular, S1S2 Gastrointestinal: normoactive bowel sounds Integumentary: no rash, other (2+ RUE edema ) Neurologic: other (intubated ) - Lab 01/25/19 05:22 01/25/19 05:22 Most recent lab results Calcium 8.0 mg/dL (8.4-10.2) L 01/25/19 05:22 Magnesium 2.00 mg/dL (1.7-2.3) 01/25/19 05:22 Medications & Allergies - Medications Allergies/Adverse Reactions: Allergies phenytoin sodium [From Dilantin] Allergy (Verified 05/08/16 07:07) Anaphylaxis phenytoin sodium extended [From Dilantin] Allergy (Verified 05/08/16 07:07) Anaphylaxis Home Medications: Home Medications Medication Instructions Recorded Confirmed Last Taken Type Ferrous Sulfate [Iron 325 MG] 325 mg PO DAILY 01/04/19 01/22/19 01/03/19 History Aspirin EC 81 mg PO QDAY #30 tablet. 01/07/19 01/22/19 Unknown Rx Clopidogrel [Plavix] 75 mg PO QDAY #30 tablet 01/07/19 01/22/19 Unknown Rx Losartan [Cozaar] 100 mg PO DAILY 30 Days #30 tablet 01/07/19 01/22/19 Unknown Rx Metoprolol [Lopressor TAB] 50 mg PO BID #60 tablet 01/07/19 01/22/19 Unknown Rx Pravastatin [Pravachol] 20 mg PO QHS #30 tablet 01/07/19 01/22/19 Unknown Rx Active Medications: Generic Name Dose Route Start Last Admin Trade Name Freq PRN Reason Stop Dose Admin Albuterol 2.5 mg 01/22/19 12:23 Proventil IH Q3H PRN Shortness Of Breath Lipase/Protease/Amylase 1 each 01/23/19 11:21 Pancreaze 10,500 Unit FEEDTUBE PRN PRN For Clogged Feeding Tube Aspirin 81 mg 01/23/19 10:00 01/25/19 09:46 Halfprin Ec PO 81 mg QDAY LUCIO Administration Clopidogrel Bisulfate 75 mg 01/23/19 10:00 01/25/19 09:46 Plavix PO 75 mg QDAY LUCIO Administration Dextrose 50 ml 01/23/19 06:43 D50w (25gm) Syringe IV PRN PRN Hypoglycemia Enoxaparin Sodium 30 mg 01/24/19 22:00 01/24/19 22:08 Lovenox SUB-Q 30 mg QDAY@2200 LUCIO Administration Famotidine 20 mg 01/24/19 10:00 01/25/19 09:46 Pepcid PO 20 mg DAILY LUCIO Administration Fentanyl 50 mcg 01/22/19 09:33 01/24/19 14:45 Sublimaze IV 50 mcg Q10MIN PRN Administration ANALGESIA Ferrous Sulfate 308 mg 01/24/19 10:00 01/25/19 09:46 Ferrous Sulfate FEEDTUBE 308 mg DAILY LUCIO Administration Hydrophilic Ointment 1 applic 01/22/19 09:33 Vaseline Lip Therapy TP Q2HR PRN Dry Lips Fentanyl Citrate 2,000 mcg in 100 mls @ 3.175 mls/hr 01/22/19 10:00 01/24/19 13:30 Fentanyl Drip Premix IV 0 mcg/kg/hr TITR LUCIO 0 mls/hr Titration Protocol 1 MCG/KG/HR Midazolam HCl 100 mg/ Sodium 100 mls @ 2 mls/hr 01/22/19 11:00 01/24/19 07:07 Chloride IV 0 mg/hr TITR LUCIO 0 mls/hr Titration Protocol 2 MG/HR Cefepime HCl 1 gm in 100 mls @ 200 mls/hr 01/23/19 18:00 01/24/19 18:29 Maxipime/Ns 1 Gm/100 Ml IV 01/26/19 23:59 200 mls/hr QPM LUCIO Administration Sodium Chloride 100 mls @ 999 mls/hr 01/24/19 16:49 Nacl 0.9% IV ALHAJI PRN Hypotension Insulin Human Lispro 0 unit 01/23/19 12:00 01/25/19 05:21 Humalog SUB-Q Not Given Q6HR [facility] Protocol Midazolam HCl 2 mg 01/22/19 09:33 01/24/19 14:44 Versed IV 2 mg Q10MIN PRN Administration Sedation Multi-Ingred Cream/Lotion/Oil/Oint 1 applic 01/22/19 09:33 Artificial Tears Ophth Oint OU Q4HR PRN Dry Eye(s) Pravastatin Sodium 20 mg 01/22/19 22:00 01/24/19 22:09 Pravachol PO Not Given QHS LUCIO Simple Syrup 15 ml 01/23/19 11:21 Simple Syrup FEEDTUBE PRN PRN Hypoglycemia Simple Syrup 30 ml 01/23/19 11:21 Simple Syrup FEEDTUBE PRN PRN Hypoglycemia Sodium Bicarbonate 325 mg 01/23/19 11:21 Sodium Bicarbonate FEEDTUBE PRN PRN For Clogged Feeding Tube Sodium Chloride 10 ml 01/22/19 22:00 01/25/19 09:47 Sodium Chloride Flush Syringe 10 Ml IV 10 ml BID LUCIO Administration Sodium Chloride 10 ml 01/22/19 12:23 Sodium Chloride Flush Syringe 10 Ml IV PRN PRN LINE FLUSH
--- NOTE | 2019-01-25 11:17 | Progress Note ---
Assessment and Plan Out of the hospital cardiac arrest no strips available for cardiac review End stage renal disease on dialysis Dilated cardiomyopathy EF 10-15% 12/2018 noncompliant with outpatient lifevest Coronary artery disease status post PCI of the proximal LAD using a BMS done December 2017. Hx of PAD Chronic hypertesnion Hyperlipidemia Diabetes Subjective Date of service: 01/25/19 Principal diagnosis: Acute hypoxemic resp failure; S/P cardiac arrest; ESRD on dialysis; DM II Interval history: Patient is alert but remains intubated. Objective Vital Signs Temp Pulse Pulse Resp BP Pulse Ox Pulse Ox 01/25/19 10:48 14 96 01/25/19 10:47 83 11 L 123/60 83 L 01/25/19 10:32 83 14 123/60 100 01/25/19 10:11 87 12 123/60 100 01/25/19 10:00 83 13 123/60 01/25/19 09:51 84 11 L 131/59 01/25/19 09:41 91 H 16 131/59 100 01/25/19 09:31 89 17 131/59 01/25/19 09:21 91 H 12 131/59 01/25/19 09:11 84 12 131/59 01/25/19 09:00 84 12 131/59 01/25/19 08:51 86 13 128/61 01/25/19 08:41 89 16 128/61 100 01/25/19 08:31 91 H 19 128/61 98 01/25/19 08:24 85 01/25/19 08:21 86 13 128/61 01/25/19 08:11 87 14 138/64 01/25/19 08:00 97.8 F 87 14 138/64 01/25/19 07:51 88 14 138/64 01/25/19 07:41 93 H 14 138/64 88 01/25/19 07:31 88 14 138/64 94 01/25/19 07:21 85 13 138/64 01/25/19 07:11 84 13 128/61 01/25/19 07:00 85 14 128/61 96 01/25/19 06:51 89 15 138/64 100 01/25/19 06:41 89 14 138/64 98 01/25/19 06:31 86 13 138/64 01/25/19 06:21 88 14 138/64 01/25/19 06:11 87 11 L 138/64 06/12/10 06:00 88 12 138/64 01/25/19 05:51 86 14 132/76 100 01/25/19 05:41 87 13 132/76 100 01/25/19 05:36 94 H 14 100 01/25/19 05:31 89 13 132/76 06 05:21 92 H 18 132/76 93 01/25/19 05:11 88 11 L 132/76 01/25/19 05:04 94 H 01/25/19 05:00 87 12 137/64 01/25/19 04:51 87 12 132/76 06 04:41 87 12 132/76 100 01/25/19 04:31 88 13 132/76 100 01/25/19 04:21 90 14 132/76 100 01/25/19 04:11 88 14 132/76 100 01/25/19 04:00 88 12 132/76 100 01/25/19 03:51 88 13 134/79 100 01/25/19 03:41 93 H 17 134/79 100 01/25/19 03:31 91 H 15 134/79 100 01/25/19 03:23 98.8 F 01/25/19 03:21 91 H 12 134/79 100 01/25/19 03:11 94 H 14 134/79 100 01/25/19 03:00 95 H 15 134/79 01/25/19 02:51 94 H 15 123/58 99 01/25/19 02:41 92 H 13 123/58 100 01/25/19 02:31 96 H 13 123/58 01/25/19 02:21 97 H 12 123/58 04 02:20 14 100 01/25/19 02:11 92 H 13 123/58 04 02:00 97 H 12 150/70 01/25/19 01:51 101 H 18 123/58 01/25/19 01:41 99 H 17 123/58 99 04 01:31 92 H 12 123/58 100 01/25/19 01:21 86 12 123/58 100 01/25/19 01:11 87 13 123/58 99 01/25/19 01:00 87 13 123/58 100 01/25/19 00:51 87 14 144/68 100 01/25/19 00:41 87 13 144/68 100 01/25/19 00:31 89 14 144/68 100 01/25/19 00:21 91 H 10 L 144/68 100 01/25/19 00:11 96 H 14 144/68 100 01/25/19 00:00 97 H 18 144/68 100 01/24/19 23:51 92 H 12 143/56 100 01/24/19 23:44 95 H 13 143/56 100 01/24/19 23:41 89 14 143/56 100 01/24/19 23:31 92 H 12 143/56 100 01/24/19 23:29 93 H 13 143/56 100 01/24/19 23:21 95 H 13 143/56 100 01/24/19 23:11 106 H 20 143/56 99 01/24/19 23:05 89 01/24/19 23:04 98.5 F 01/24/19 23:02 97 H 14 133/62 99 01/24/19 23:00 99 H 14 143/56 100 01/24/19 22:51 103 H 17 133/62 100 01/24/19 22:41 90 11 L 133/62 100 01/24/19 22:31 100 H 14 133/62 100 01/24/19 22:21 86 13 133/62 100 01/24/19 22:11 88 12 133/62 100 01/24/19 22:00 91 H 11 L 133/62 100 01/24/19 21:51 84 13 129/55 100 01/24/19 21:41 84 13 129/55 85 01/24/19 21:31 85 13 129/55 60 L 01/24/19 21:21 84 12 129/55 75 L 01/24/19 21:11 86 12 129/55 77 L 01/24/19 21:00 88 14 129/55 100 01/24/19 20:51 92 H 12 128/61 01/24/19 20:41 104 H 19 128/61 01/24/19 20:31 108 H 21 128/61 01/24/19 20:21 113 H 16 128/61 98 01/24/19 20:11 99 H 13 128/61 100 01/24/19 20:00 99.1 F 88 12 128/61 100 /11/09 19:51 79 11 L 128/62 100 /11/09 19:41 80 12 128/62 100 /11/09 19:31 82 13 128/62 100 01/24/19 19:21 81 12 128/62 100 01/24/19 19:11 84 12 128/62 100 01/24/19 19:00 89 15 128/62 96 01/24/19 18:51 98 H 19 129/64 100 01/24/19 18:45 97.2 F L 95 H 13 129/64 100 01/24/19 18:41 92 H 12 140/69 100 01/24/19 18:30 94 H 13 140/69 100 01/24/19 18:21 86 13 132/66 100 01/24/19 18:15 83 122/54 01/24/19 18:11 92 H 14 122/54 99 01/24/19 18:00 83 79 12 122/54 100 01/24/19 17:51 84 12 128/58 100 01/24/19 17:45 87 128/58 01/24/19 17:41 88 15 136/61 96 01/24/19 17:30 85 15 136/61 100 01/24/19 17:21 85 14 131/54 100 01/24/19 17:15 83 131/54 01/24/19 17:11 83 13 129/69 100 01/24/19 17:01 97 H 11 L 129/69 100 01/24/19 17:00 87 129/69 01/24/19 16:51 82 9 L 130/61 100 01/24/19 16:45 84 131/67 01/24/19 16:41 82 12 130/61 100 01/24/19 16:31 82 12 130/61 100 01/24/19 16:30 87 130/61 01/24/19 16:21 85 13 131/63 100 01/24/19 16:15 89 131/63 01/24/19 16:11 89 12 119/56 100 01/24/19 16:00 85 79 12 119/56 100 01/24/19 15:51 82 11 L 112/55 100 01/24/19 15:45 81 112/55 01/24/19 15:41 82 10 L 113/55 100 01/24/19 15:30 80 11 L 113/55 01/24/19 15:21 81 11 L 116/57 100 01/24/19 15:15 81 116/57 01/24/19 15:11 83 12 124/58 100 01/24/19 15:00 80 12 124/58 100 01/24/19 14:51 79 11 L 127/61 100 01/24/19 14:45 98.0 F 87 12 140/70 100 01/24/19 14:41 82 10 L 140/70 100 01/24/19 14:30 86 11 L 140/70 98 01/24/19 14:20 87 13 116/55 01/24/19 14:11 79 10 L 127/61 100 01/24/19 14:00 80 79 12 127/61 100 01/24/19 13:51 78 10 L 123/58 100 01/24/19 13:41 77 10 L 123/58 100 01/24/19 13:30 77 10 L 123/58 100 01/24/19 13:21 81 11 L 116/55 100 01/24/19 13:11 80 10 L 116/55 100 01/24/19 13:00 76 10 L 116/55 100 01/24/19 12:51 76 10 L 126/59 100 01/24/19 12:41 75 10 L 126/59 100 01/24/19 12:30 77 10 L 126/59 100 01/24/19 12:21 77 11 L 120/58 100 01/24/19 12:11 78 10 L 120/58 100 01/24/19 12:00 76 79 12 120/58 01/24/19 11:51 77 10 L 137/64 100 01/24/19 11:41 78 11 L 137/64 100 01/24/19 11:30 80 11 L 137/64 100 01/24/19 11:21 81 12 142/68 100 - Physical Examination General: Other (intubated) Cardiac: Positive: Reg Rate and Rhythm Extremities: Absent: edema (left transmetatarsal amputation) - Labs and Meds Cardiac Enzymes 01/25/19 Range/Units 05:22 AST 12 (5-40) units/L CBC 01/25/19 Range/Units 05:22 WBC 13.2 H (4.5-11.0) K/mm3 RBC 3.90 (3.65-5.03) M/mm3 Hgb 10.3 (10.1-14.3) gm/dl Hct 31.6 (30.3-42.9) % Plt Count 120 L (140-440) K/mm3 Lymph # 0.4 L (1.2-5.4) K/mm3 [place] # 0.8 (0.0-0.8) K/mm3 Eos # 0.0 (0.0-0.4) K/mm3 Baso # 0.1 (0.0-0.1) K/mm3 Comprehensive Metabolic Panel 01/25/19 Range/Units 05:22 Sodium 137 (137-145) mmol/L Potassium 4.0 (3.6-5.0) mmol/L Chloride 95.7 L (98-107) mmol/L Carbon Dioxide 26 (22-30) mmol/L BUN 21 H (7-17) mg/dL Creatinine 3.2 H (0.7-1.2) mg/dL Glucose 112 H (65-100) mg/dL Calcium 8.0 L (8.4-10.2) mg/dL AST 12 (5-40) units/L ALT 15 (7-56) units/L Alkaline Phosphatase 131 H (35-129) units/L Total Protein 6.7 D (6.3-8.2) g/dL Albumin 3.0 L (3.9-5) g/dL - Allied health notes Allied health notes reviewed: nursing
--- NOTE | 2019-01-25 11:19 | Progress Note ---
Assessment and Plan Assessment and plan: -- Acute respiratory failure with hypoxia; -wean as tolerated and extubate -Pulmonary input noted -VAP AND Aspiration precaution Bundle -Nebs, scheduled and PRN -- OOH [out of the hospital ]Cardiac arrest S/P ACLS with return of perfusing rhythm, Continue current management, cardiology following Cardiac cah prior to discharge --Dialated CMP; EF 10-15% continue anti-failure medications input and output monitoring -- ESRD needing dialysis Nephrology following, HD per schedule, monitor electrolytes -- Pneumonia; probable community-acquired Pneumonia protocol, IV antibiotic, follow blood cultures, Oxygen titrate O2 sats to more than 90% --HTN (hypertension) Monitor BP q shift, Pt currently hypotensive S/P cardiac arrest. -- Diabetes ADA diet, when/if awake alert, insulin, accu check,hypoglycemia protocol -- Pulmonary hypertension supportive care, continue current care, wean vent as tolerated, -- Hypokalemia REPLACE per protocol -- Anemia of chronic renal disease Monitor and transfuse as needed -- PVD: Continue current management -- DVT prophylaxis SCD to BLE while in bed, prophylactic heparin Plan of care is reviewed with the family member at the bedside The high probability of a clinically significant, sudden or life threatening deterioration of the [Cardiac, pulmonary, renal, ] system(s) required my full and direct attention, intervention and personal management. The aggregate critical care time was [31] minutes. This time is in addition to time spent performing reported procedures but includes the following: [x] Data Review and interpretation [x] Patient assessment and monitoring of vital signs [x] Documentation [x] Medication orders and management History Interval history: Patient seen and examined medical records reviewed Remains intubated on ventilatory support Weaning parameters Patient is alert and awake Patient's son at the bedside Vital signs noted Hospitalist Physical - Constitutional Vitals: Temp Pulse Resp BP Pulse Ox 97.8 F 83 14 123/60 96 01/25/19 08:00 01/25/19 10:47 01/25/19 10:48 01/25/19 10:47 01/25/19 10:48 General appearance: Present: no acute distress, well-nourished, other (intubated on vent) - EENT Eyes: Present: PERRL, EOM intact - Neck Neck: Present: supple, normal ROM - Respiratory Respiratory effort: normal Respiratory: bilateral: diminished, rhonchi, negative: rales, wheezing - Cardiovascular Rhythm: regular Heart Sounds: Present: S1 & S2 - Extremities Extremities: no ischemia, No edema - Abdominal General gastrointestinal: soft, non-tender, non-distended, normal bowel sounds - Integumentary Integumentary: Present: clear, warm - Psychiatric Psychiatric: cooperative - Neurologic Neurologic: other (on vent) Results - Labs CBC & Chem 7: 01/25/19 05:22 01/25/19 05:22 Labs: Laboratory Last Values WBC 13.2 K/mm3 (4.5-11.0) H 01/25/19 05:22 RBC 3.90 M/mm3 (3.65-5.03) 01/25/19 05:22 Hgb 10.3 gm/dl (10.1-14.3) 01/25/19 05:22 Hct 31.6 % (30.3-42.9) 01/25/19 05:22 MCV 81 fl (79-97) 01/25/19 05:22 MCH 26 pg (28-32) L 01/25/19 05:22 MCHC 33 % (30-34) 01/25/19 05:22 RDW 17.7 % (13.2-15.2) H 01/25/19 05:22 Plt Count 120 K/mm3 (140-440) L 01/25/19 05:22 Lymph % (Auto) 3.3 % (13.4-35.0) L 01/25/19 05:22 [place] % (Auto) 6.2 % (0.0-7.3) 01/25/19 05:22 Eos % (Auto) 0.0 % (0.0-4.3) 01/25/19 05:22 Baso % (Auto) 0.5 % (0.0-1.8) 01/25/19 05:22 Lymph # 0.4 K/mm3 (1.2-5.4) L 01/25/19 05:22 [place] # 0.8 K/mm3 (0.0-0.8) 01/25/19 05:22 Eos # 0.0 K/mm3 (0.0-0.4) 01/25/19 05:22 Baso # 0.1 K/mm3 (0.0-0.1) 01/25/19 05:22 Add Manual Diff Complete 01/22/19 Unknown Total Counted 100 01/22/19 Unknown Seg Neutrophils % 90.0 % (40.0-70.0) H 01/25/19 05:22 Seg Neuts % (Manual) 60.0 % (40.0-70.0) 01/22/19 Unknown 1.0 % 01/22/19 Unknown 25.0 % (13.4-35.0) 01/22/19 Unknown Reactive Lymphs % (Man) 0 % 01/22/19 Unknown 11.0 % (0.0-7.3) H 01/22/19 Unknown 0 % (0.0-4.3) 01/22/19 Unknown 0 % (0.0-1.8) 01/22/19 Unknown 3.0 % 01/22/19 Unknown 0 % 01/22/19 Unknown 0 % 01/22/19 Unknown 0 % 01/22/19 Unknown Nucleated RBC % Not Reportable 01/22/19 Unknown Seg Neutrophils # 11.8 K/mm3 (1.8-7.7) H 01/25/19 05:22 Seg Neutrophils # Man 4.3 K/mm3 (1.8-7.7) 01/22/19 Unknown Band Neutrophils # 0.1 K/mm3 01/22/19 Unknown 1.8 K/mm3 (1.2-5.4) 01/22/19 Unknown Abs React Lymphs (Man) 0.0 K/mm3 01/22/19 Unknown 0.8 K/mm3 (0.0-0.8) 01/22/19 Unknown 0.0 K/mm3 (0.0-0.4) 01/22/19 Unknown 0.0 K/mm3 (0.0-0.1) 01/22/19 Unknown 0.2 K/mm3 01/22/19 Unknown 0.0 K/mm3 01/22/19 Unknown 0.0 K/mm3 01/22/19 Unknown Blast Cells # 0.0 K/mm3 01/22/19 Unknown WBC Morphology Not Reportable 01/22/19 Unknown Hypersegmented Neuts Not Reportable 01/22/19 Unknown Hyposegmented Neuts Not Reportable 01/22/19 Unknown Hypogranular Neuts Not Reportable 01/22/19 Unknown Not Reportable 01/22/19 Unknown Not Reportable 01/22/19 Unknown Not Reportable 01/22/19 Unknown Not Reportable 01/22/19 Unknown Not Reportable 01/22/19 Unknown Not Reportable 01/22/19 Unknown Consistent w auto 01/22/19 Unknown Not Reportable 01/22/19 Unknown Plt Clumps, EDTA Not Reportable 01/22/19 Unknown Few 01/22/19 Unknown Not Reportable 01/22/19 Unknown Not Reportable 01/22/19 Unknown Plt Morphology Comment Not Reportable 01/22/19 Unknown RBC Morphology Not Reportable 01/22/19 Unknown Dimorphic RBCs Not Reportable 01/22/19 Unknown Not Reportable 01/22/19 Unknown Not Reportable 01/22/19 Unknown Not Reportable 01/22/19 Unknown Not Reportable 01/22/19 Unknown Not Reportable 01/22/19 Unknown Not Reportable 01/22/19 Unknown Not Reportable 01/22/19 Unknown Not Reportable 01/22/19 Unknown Not Reportable 01/22/19 Unknown Not Reportable 01/22/19 Unknown Few 01/22/19 Unknown Not Reportable 01/22/19 Unknown Not Reportable 01/22/19 Unknown Not Reportable 01/22/19 Unknown Not Reportable 01/22/19 Unknown Not Reportable 01/22/19 Unknown Not Reportable 01/22/19 Unknown Not Reportable 01/22/19 Unknown Few 01/22/19 Unknown Acanthocytes (Spur) Not Reportable 01/22/19 Unknown Rouleaux Not Reportable 01/22/19 Unknown Not Reportable 01/22/19 Unknown Rare 01/22/19 Unknown Not Reportable 01/22/19 Unknown Not Reportable 01/22/19 Unknown Hem Pathologist Commnt No 01/22/19 Unknown POC ABG pH 7.378 (7.35-7.45) 01/24/19 03:20 POC ABG pCO2 43.4 (35-45) 01/24/19 03:20 POC ABG pO2 114 (80-105) H 01/24/19 03:20 POC ABG HCO3 25.6 (22-26 mml/L) 01/24/19 03:20 POC ABG Total CO2 27 (23-27mmol/L) 01/24/19 03:20 POC ABG O2 Sat 98 01/24/19 03:20 POC ABG Base Excess 0 ((-2) - (+3)mmol/L) 01/24/19 03:20 35 % 01/24/19 03:20 Sodium 137 mmol/L (137-145) 01/25/19 05:22 Potassium 4.0 mmol/L (3.6-5.0) 01/25/19 05:22 Chloride 95.7 mmol/L (98-107) L 01/25/19 05:22 Carbon Dioxide 26 mmol/L (22-30) 01/25/19 05:22 19 mmol/L 01/25/19 05:22 BUN 21 mg/dL (7-17) H 01/25/19 05:22 3.2 mg/dL (0.7-1.2) H 01/25/19 05:22 Estimated GFR 17 ml/min 01/25/19 05:22 7 % 01/25/19 05:22 Glucose 112 mg/dL (65-100) H 01/25/19 05:22 POC Glucose 103 (70-105) 01/25/19 08:06 Lactic Acid 1.70 mmol/L (0.7-2.0) 01/22/19 15:35 Calcium 8.0 mg/dL (8.4-10.2) L 01/25/19 05:22 Magnesium 2.00 mg/dL (1.7-2.3) 01/25/19 05:22 0.60 mg/dL (0.1-1.2) 01/25/19 05:22 AST 12 units/L (5-40) 01/25/19 05:22 ALT 15 units/L (7-56) 01/25/19 05:22 131 units/L (35-129) H 01/25/19 05:22 0.133 ng/mL (0.00-0.029) H* 01/22/19 Unknown 1.30 mg/dL (0.00-1.30) 01/22/19 15:35 NT-Pro-B Natriuret Pep 73090 pg/mL (0-900) H 01/23/19 04:29 6.7 g/dL (6.3-8.2) D 01/25/19 05:22 3.0 g/dL (3.9-5) L 01/25/19 05:22 0.8 % 01/25/19 05:22 Triglycerides 111 mg/dL (2-149) 01/22/19 Unknown Cholesterol 153 mg/dL (50-199) 01/22/19 Unknown 79 mg/dL (50-130) 01/22/19 Unknown 62 mg/dL (40-59) H 01/22/19 Unknown 2.46 % 01/22/19 Unknown Random Vancomycin 9.3 ug/mL (0-40.0) 01/25/19 05:22 Acetaminophen < 5.0 ug/mL (10.0-30.0) L 01/22/19 15:35 Hepatitis A IgM Ab Non-reactive (NonReactive) 01/22/19 15:35 Hep Bs Antigen Non-reactive (Negative) 01/22/19 15:35 Hep B Core IgM Ab Non-reactive (NonReactive) 01/22/19 15:35 Non-reactive (NonReactive) 01/22/19 15:35 Blood Type B POSITIVE 01/22/19 11:53 WOODY Antibody Screen Negative 01/22/19 11:53 Active Medications - Current Medications Current Medications: Generic Name Dose Route Start Last Admin Trade Name Freq PRN Reason Stop Dose Admin Albuterol 2.5 mg 01/22/19 12:23 Proventil IH Q3H PRN Shortness Of Breath Lipase/Protease/Amylase 1 each 01/23/19 11:[address] 10,500 Unit FEEDTUBE PRN PRN For Clogged Feeding Tube Aspirin 81 mg 01/23/19 10:00 01/25/19 09:46 Halfprin Ec PO 81 mg QDAY LUCIO Administration Clopidogrel Bisulfate 75 mg 01/23/19 10:00 01/25/19 09:46 Plavix PO 75 mg QDAY LUCIO Administration Dextrose 50 ml 01/23/19 06:43 D50w (25gm) Syringe IV PRN PRN Hypoglycemia Enoxaparin Sodium 30 mg 01/24/19 22:00 01/24/19 22:08 Lovenox SUB-Q 30 mg QDAY@2200 LUCIO Administration Famotidine 20 mg 01/24/19 10:00 01/25/19 09:46 Pepcid PO 20 mg DAILY LUCIO Administration Fentanyl 50 mcg 01/22/19 09:33 01/24/19 14:45 Sublimaze IV 50 mcg Q10MIN PRN Administration ANALGESIA Ferrous Sulfate 308 mg 01/24/19 10:00 01/25/19 09:46 Ferrous Sulfate FEEDTUBE 308 mg DAILY LUCIO Administration Hydrophilic Ointment 1 applic 01/22/19 09:33 Vaseline Lip Therapy TP Q2HR PRN Dry Lips Fentanyl Citrate 2,000 mcg in 100 mls @ 3.175 mls/hr 01/22/19 10:00 01/24/19 13:30 Fentanyl Drip Premix IV 0 mcg/kg/hr TITR LUCIO 0 mls/hr Titration Protocol 1 MCG/KG/HR Midazolam HCl 100 mg/ Sodium 100 mls @ 2 mls/hr 01/22/19 11:00 01/24/19 07:07 Chloride IV 0 mg/hr TITR LUCIO 0 mls/hr Titration Protocol 2 MG/HR Cefepime HCl 1 gm in 100 mls @ 200 mls/hr 01/23/19 18:00 01/24/19 18:29 Maxipime/Ns 1 Gm/100 Ml IV 01/26/19 23:59 200 mls/hr QPM LUCIO Administration Sodium Chloride 100 mls @ 999 mls/hr 01/24/19 16:49 Nacl 0.9% IV ALHAJI PRN Hypotension Insulin Human Lispro 0 unit 01/23/19 12:00 01/25/19 05:21 Humalog SUB-Q Not Given Q6HR [facility] Protocol Midazolam HCl 2 mg 01/22/19 09:33 01/24/19 14:44 Versed IV 2 mg Q10MIN PRN Administration Sedation Multi-Ingred Cream/Lotion/Oil/Oint 1 applic 01/22/19 09:33 Artificial Tears Ophth Oint OU Q4HR PRN Dry Eye(s) Pravastatin Sodium 20 mg 01/22/19 22:00 01/24/19 22:09 Pravachol PO Not Given QHS LUCIO Simple Syrup 15 ml 01/23/19 11:21 Simple Syrup FEEDTUBE PRN PRN Hypoglycemia Simple Syrup 30 ml 01/23/19 11:21 Simple Syrup FEEDTUBE PRN PRN Hypoglycemia Sodium Bicarbonate 325 mg 01/23/19 11:21 Sodium Bicarbonate FEEDTUBE PRN PRN For Clogged Feeding Tube Sodium Chloride 10 ml 01/22/19 22:00 01/25/19 09:47 Sodium Chloride Flush Syringe 10 Ml IV 10 ml BID LUCIO Administration Sodium Chloride 10 ml 01/22/19 12:23 Sodium Chloride Flush Syringe 10 Ml IV PRN PRN LINE FLUSH Nutrition/Malnutrition Assess - Dietary Evaluation Nutrition/Malnutrition Findings: Nutrition Notes Start: 01/23/19 10:56 Freq: Status: Active Protocol: Document 01/23/19 10:56 RM (Rec: 01/23/19 11:09 RM [id number]) Nutrition Notes Need for Assessment generated from: MD Order Initial or Follow up Assessment Current Diagnosis Diabetes,Hypertension, Respiratory Failure,Stroke Other Pertinent Diagnosis ESRD on HD (T/R/Sa), PVD, Pneu Current Diet NPO Labs/Tests Reviewed Pertinent Medications Reviewed Height 5 ft 6 in Weight 63.503 kg [place] Body Weight (kg) 59.09 BMI 22.6 Subjective/Other Information Consulted for TF recommendation. Pt on vent. Burn Absent Trauma Absent #1 Nutrition Diagnosis Inadequate oral intake Etiology on vent As Evidenced by Signs and Symptoms NPO status Is patient on ventilator? Yes Is Patient Ambulatory and/or Out of Bed No REE-([facility]-confined to bed) 1364.856 Calculation Used for Recommendations [facility] Additional Notes Protein Needs: 76-127g (1.2-2g /kg) Fluid Needs: 1 ml/kcal Nutrition Intervention Nutrition Support: Glucerna 1.2 at 50 ml/hr. Water flush of 80 ml q 4 hrs. Kcal 1,440 Protein (gm) 72 Fluid (mL) 966 Goal #1 TF tolerance Goal #2 Meet at least 80% of calorie and protein needs via TF Follow-Up By: 01/25/19 Additional Comments Follow TF tolerance, renal labs
--- NOTE | 2019-01-25 11:20 | Progress Note ---
Assessment and Plan Acute hypoxemic respiratory failure, on mechanical ventilatory support. Status post cardiac arrest with return of spontaneous circulation. End-stage renal disease, on dialysis. Diabetes type 2. Hypertension. History of cerebrovascular accident. Peripheral vascular disease. History of pulmonary hypertension. - ABG after 2 hours on PSV today and if acceptable will give trial of extubation as meeting other criteria - sedation target for RASS 0 to -1 (on hold now) - continue GI & VTE prophylaxis - continue to wean supplemental oxygen to keep O2 sats 88-90% - Lung protective strategies - VAP bundle addressed - continue HD/UF for toxin and volume clearance - continue empiric antibiotics and de-escalate based on clinical and microbiologic data (Cultures NGTD) - Continue cardioprotective measures (cardiology evaluation ongoing) - Monitor renal indices closely - Avoid nephrotoxic agents, adjust all medications for CrCL - Strict intake and output monitoring - continue enteral nutrition as tolerated - continue accuchecks with glycemic control per SSI for target glucose of 140- 180 mg/dL - Maintenance of sleep -wake cycle - Mobility as tolerated by hemodynamics - PT/OT as tolerated - Influenza and pneumonia vaccination per protocol - discharge planning ongoing concurrently .... care plan discussed with family in room PROGNOSIS: GUARDED CONDITION: CRITICAL CODE STATUS: FULL CODE The high probability of a clinically significant, sudden or life-threatening deterioration of the [respiratory, cardiac & renal] system(s) required my full and direct attention, intervention and personal management. The aggregate critical care time was [35] minutes without overlap. Time includes spent on; [x] Data Review and interpretation [x] Patient assessment and monitoring of vital signs [x] Documentation [x] Medication orders and management Subjective Date of service: 01/25/19 Principal diagnosis: Acute hypoxemic resp failure; S/P cardiac arrest; ESRD on dialysis; DM II Interval history: Patient is seen today for: Acute hypoxemic resp failure on MVS; S/P cardiac arrest with ROSC; ESRD on dialysis; DM II; HTN; H/O CVA; PVD; H/O pulmonary hypertension. Seen and examined at bedside; 24hour events reviewed; nursing and respiratory care staff consulted; no adverse overnight events reported to me; remains on MVS; finished dialysis late yesterday and unable to get SBT done; tolerating PSV much better today; denies acute chest pains or palpitations; No N/V/F/C Objective Vital Signs - 12hr 01/24/19 01/24/19 01/24/19 23:21 23:29 23:31 Temperature Pulse Rate 95 H 93 H 92 H Respiratory 13 13 12 Rate Blood Pressure 143/56 143/56 143/56 O2 Sat by Pulse 100 100 100 Oximetry 01/24/19 01/24/19 01/24/19 23:41 23:44 23:51 Temperature Pulse Rate 89 95 H 92 H Respiratory 14 13 12 Rate Blood Pressure 143/56 143/56 143/56 O2 Sat by Pulse 100 100 100 Oximetry 01/25/19 01/25/19 01/25/19 00:00 00:11 00:21 Temperature Pulse Rate 97 H 96 H 91 H Respiratory 18 14 10 L Rate Blood Pressure 144/68 144/68 144/68 O2 Sat by Pulse 100 100 100 Oximetry 01/25/19 01/25/19 01/25/19 00:31 00:41 00:51 Temperature Pulse Rate 89 87 87 Respiratory 14 13 14 Rate Blood Pressure 144/68 144/68 144/68 O2 Sat by Pulse 100 100 100 Oximetry 01/25/19 01/25/19 01/25/19 01:00 01:11 01:21 Temperature Pulse Rate 87 87 86 Respiratory 13 13 12 Rate Blood Pressure 123/58 123/58 123/58 O2 Sat by Pulse 100 99 100 Oximetry 01/25/19 01/25/19 01/25/19 01:31 01:41 01:51 Temperature Pulse Rate 92 H 99 H 101 H Respiratory 12 17 18 Rate Blood Pressure 123/58 123/58 123/58 O2 Sat by Pulse 100 99 Oximetry 01/25/19 01/25/19 01/25/19 02:00 02:11 02:20 Temperature Pulse Rate 97 H 92 H Respiratory 12 13 14 Rate Blood Pressure 150/70 123/58 O2 Sat by Pulse 100 Oximetry 01/25/19 01/25/19 01/25/19 02:21 02:31 02:41 Temperature Pulse Rate 97 H 96 H 92 H Respiratory 12 13 13 Rate Blood Pressure 123/58 123/58 123/58 O2 Sat by Pulse 100 Oximetry 01/25/19 01/25/19 01/25/19 02:51 03:00 03:11 Temperature Pulse Rate 94 H 95 H 94 H Respiratory 15 15 14 Rate Blood Pressure 123/58 134/79 134/79 O2 Sat by Pulse 99 100 Oximetry 01/25/19 01/25/19 01/25/19 03:21 03:23 03:31 Temperature 98.8 F Pulse Rate 91 H 91 H Respiratory 12 15 Rate Blood Pressure 134/79 134/79 O2 Sat by Pulse 100 100 Oximetry 01/25/19 01/25/19 01/25/19 03:41 03:51 04:00 Temperature Pulse Rate 93 H 88 88 Respiratory 17 13 12 Rate Blood Pressure 134/79 134/79 132/76 O2 Sat by Pulse 100 100 100 Oximetry 01/25/19 01/25/19 01/25/19 04:11 04:21 04:31 Temperature Pulse Rate 88 90 88 Respiratory 14 14 13 Rate Blood Pressure 132/76 132/76 132/76 O2 Sat by Pulse 100 100 100 Oximetry 01/25/19 01/25/19 01/25/19 04:41 04:51 05:00 Temperature Pulse Rate 87 87 87 Respiratory 12 12 12 Rate Blood Pressure 132/76 132/76 137/64 O2 Sat by Pulse 100 Oximetry 01/25/19 01/25/19 01/25/19 05:04 05:11 05:21 Temperature Pulse Rate 94 H 88 92 H Respiratory 11 L 18 Rate Blood Pressure 132/76 132/76 O2 Sat by Pulse 93 Oximetry 01/25/19 01/25/19 01/25/19 05:31 05:36 05:41 Temperature Pulse Rate 89 94 H 87 Respiratory 13 14 13 Rate Blood Pressure 132/76 132/76 O2 Sat by Pulse 100 100 Oximetry 01/25/19 01/25/19 01/25/19 05:51 06:00 06:11 Temperature Pulse Rate 86 88 87 Respiratory 14 12 11 L Rate Blood Pressure 132/76 138/64 138/64 O2 Sat by Pulse 100 Oximetry 01/25/19 01/25/19 01/25/19 06:21 06:31 06:41 Temperature Pulse Rate 88 86 89 Respiratory 14 13 14 Rate Blood Pressure 138/64 138/64 138/64 O2 Sat by Pulse 98 Oximetry 01/25/19 01/25/19 01/25/19 06:51 07:00 07:11 Temperature Pulse Rate 89 85 84 Respiratory 15 14 13 Rate Blood Pressure 138/64 128/61 128/61 O2 Sat by Pulse 100 96 Oximetry 01/25/19 01/25/19 01/25/19 07:21 07:31 07:41 Temperature Pulse Rate 85 88 93 H Respiratory 13 14 14 Rate Blood Pressure 138/64 138/64 138/64 O2 Sat by Pulse 94 88 Oximetry 01/25/19 01/25/19 01/25/19 07:51 08:00 08:11 Temperature 97.8 F Pulse Rate 88 87 87 Respiratory 14 14 14 Rate Blood Pressure 138/64 138/64 138/64 O2 Sat by Pulse Oximetry 01/25/19 01/25/19 01/25/19 08:21 08:24 08:31 Temperature Pulse Rate 86 85 91 H Respiratory 13 19 Rate Blood Pressure 128/61 128/61 O2 Sat by Pulse 98 Oximetry 01/25/19 01/25/19 01/25/19 08:41 08:51 09:00 Temperature Pulse Rate 89 86 84 Respiratory 16 13 12 Rate Blood Pressure 128/61 128/61 131/59 O2 Sat by Pulse 100 Oximetry 01/25/19 01/25/19 01/25/19 09:11 09:21 09:31 Temperature Pulse Rate 84 91 H 89 Respiratory 12 12 17 Rate Blood Pressure 131/59 131/59 131/59 O2 Sat by Pulse Oximetry 01/25/19 01/25/19 01/25/19 09:41 09:51 10:00 Temperature Pulse Rate 91 H 84 83 Respiratory 16 11 L 13 Rate Blood Pressure 131/59 131/59 123/60 O2 Sat by Pulse 100 Oximetry 01/25/19 01/25/19 01/25/19 10:11 10:32 10:47 Temperature Pulse Rate 87 83 83 Respiratory 12 14 11 L Rate Blood Pressure 123/60 123/60 123/60 O2 Sat by Pulse 100 100 83 L Oximetry 01/25/19 10:48 Temperature Pulse Rate Respiratory 14 Rate Blood Pressure O2 Sat by Pulse 96 Oximetry Constitutional: appears uncomfortable, other (elderly looking AAF, normocephalic resting in bed on MVS) Eyes: non-icteric ENT: oropharynx moist, other (ETT 23 cm NAVEEN) Neck: supple, no lymphadenopathy, no JVD, other (no thyromegaly) Effort: mildly labored Ascultation: Bilateral: diminished breath sounds, rhonchi Percussion: Bilateral: not dull Cardiovascular: regular rate and rhythm, murmur noted (systolic) Gastrointestinal: normoactive bowel sounds, soft, non-tender, non-distended Integumentary: rash Extremities: no cyanosis, no edema, pulses normal, no ischemia or petechiae Neurologic: non-focal exam (grossly), pupils equal and round, CN II-XII normal, other (lethargic) Psychiatric: other (somnolent) CBC and BMP: 01/25/19 05:22 01/25/19 05:22 ABG, PT/INR, D-dimer: ABG POC ABG pH 7.378 (7.35-7.45) 01/24/19 03:20 POC ABG pCO2 43.4 (35-45) 01/24/19 03:20 POC ABG pO2 114 (80-105) H 01/24/19 03:20 POC ABG HCO3 25.6 (22-26 mml/L) 01/24/19 03:20 POC ABG Total CO2 27 (23-27mmol/L) 01/24/19 03:20 POC ABG O2 Sat 98 01/24/19 03:20 Abnormal lab findings: Abnormal Labs 01/22/19 01/22/19 01/22/19 09:27 11:09 15:07 WBC RBC Hgb Hct MCH RDW Plt Count Lymph % (Auto) [place] % (Auto) Lymph # Seg Neutrophils % Monocytes % (Manual) Seg Neutrophils # POC ABG pO2 207 H Potassium Chloride Carbon Dioxide BUN Creatinine Glucose POC Glucose 113 H 134 H Calcium Magnesium AST ALT Alkaline Phosphatase Troponin T NT-Pro-B Natriuret Pep Total Protein Albumin HDL Cholesterol Acetaminophen 01/22/19 01/22/19 01/22/19 15:35 17:40 Unknown WBC RBC Hgb Hct MCH 26 L RDW 17.3 H Plt Count Lymph % (Auto) [place] % (Auto) Lymph # Seg Neutrophils % Monocytes % (Manual) 11.0 H Seg Neutrophils # POC ABG pO2 Potassium Chloride Carbon Dioxide BUN Creatinine Glucose POC Glucose 121 H Calcium Magnesium AST ALT Alkaline Phosphatase Troponin T NT-Pro-B Natriuret Pep Total Protein Albumin HDL Cholesterol Acetaminophen < 5.0 L 01/22/19 01/23/19 01/23/19 Unknown 01:26 03:48 WBC RBC Hgb Hct MCH RDW Plt Count Lymph % (Auto) [place] % (Auto) Lymph # Seg Neutrophils % Monocytes % (Manual) Seg Neutrophils # POC ABG pO2 138 H Potassium Chloride 96.2 L Carbon Dioxide BUN 20 H Creatinine 2.4 H Glucose 150 H POC Glucose 108 H Calcium Magnesium AST 109 H ALT 63 H Alkaline Phosphatase 227 H Troponin T 0.133 H* NT-Pro-B Natriuret Pep Total Protein Albumin 3.8 L HDL Cholesterol 62 H Acetaminophen 01/23/19 01/23/19 01/23/19 04:29 04:29 17:11 WBC RBC 3.27 L Hgb 8.8 L Hct 26.8 L D MCH 27 L RDW 17.5 H Plt Count 100 L Lymph % (Auto) 9.1 L [place] % (Auto) 11.4 H Lymph # 0.4 L Seg Neutrophils % 78.3 H Monocytes % (Manual) Seg Neutrophils # POC ABG pO2 Potassium 3.0 L D Chloride 109.2 H Carbon Dioxide 18 L D BUN 23 H Creatinine 2.6 H Glucose POC Glucose 63 L Calcium 6.4 L D Magnesium 1.50 L AST ALT Alkaline Phosphatase Troponin T NT-Pro-B Natriuret Pep 14092 H Total Protein 4.7 L D Albumin 2.2 L HDL Cholesterol Acetaminophen 01/23/19 01/24/19 01/24/19 19:49 02:06 03:20 WBC RBC Hgb Hct MCH RDW Plt Count Lymph % (Auto) [place] % (Auto) Lymph # Seg Neutrophils % Monocytes % (Manual) Seg Neutrophils # POC ABG pO2 113 H 114 H Potassium Chloride Carbon Dioxide BUN Creatinine Glucose POC Glucose 173 H Calcium Magnesium AST ALT Alkaline Phosphatase Troponin T NT-Pro-B Natriuret Pep Total Protein Albumin HDL Cholesterol Acetaminophen 01/24/19 01/24/19 01/24/19 05:25 05:40 05:40 WBC RBC Hgb Hct MCH 26 L RDW 18.3 H Plt Count 109 L Lymph % (Auto) [place] % (Auto) Lymph # Seg Neutrophils % Monocytes % (Manual) Seg Neutrophils # POC ABG pO2 Potassium Chloride Carbon Dioxide BUN 37 H Creatinine 3.9 H Glucose 142 H POC Glucose 150 H Calcium 8.2 L D Magnesium 2.70 H AST ALT Alkaline Phosphatase Troponin T NT-Pro-B Natriuret Pep Total Protein Albumin HDL Cholesterol Acetaminophen 01/24/19 01/24/19 01/24/19 11:34 17:32 23:36 WBC RBC Hgb Hct MCH RDW Plt Count Lymph % (Auto) [place] % (Auto) Lymph # Seg Neutrophils % Monocytes % (Manual) Seg Neutrophils # POC ABG pO2 Potassium Chloride Carbon Dioxide BUN Creatinine Glucose POC Glucose 143 H 174 H 106 H Calcium Magnesium AST ALT Alkaline Phosphatase Troponin T NT-Pro-B Natriuret Pep Total Protein Albumin HDL Cholesterol Acetaminophen 01/25/19 01/25/19 01/25/19 05:21 05:22 05:22 WBC 13.2 H RBC Hgb Hct MCH 26 L RDW 17.7 H Plt Count 120 L Lymph % (Auto) 3.3 L [place] % (Auto) Lymph # 0.4 L Seg Neutrophils % 90.0 H Monocytes % (Manual) Seg Neutrophils # 11.8 H POC ABG pO2 Potassium Chloride 95.7 L Carbon Dioxide BUN 21 H Creatinine 3.2 H Glucose 112 H POC Glucose 111 H Calcium 8.0 L Magnesium AST ALT Alkaline Phosphatase 131 H Troponin T NT-Pro-B Natriuret Pep Total Protein Albumin 3.0 L HDL Cholesterol Acetaminophen Allied health notes reviewed: nursing
[2019-01-25] MEDS: MAXIPIME/NS 1 GM/100 ML 1 GM/100 ML BAG IV SCH (17:03)
[2019-01-25] MEDS: SODIUM CHLORIDE FLUSH SYRINGE 10 ML IV PRN (17:04)
[2019-01-25] MEDS: LOVENOX SUB-Q SCH (22:00)
[2019-01-25] MEDS: PRAVACHOL PO SCH (22:00)
[2019-01-26] MEDS: HumaLOG SUB-Q SCH ×5 (00:27→22:41)
--- NOTE | 2019-01-26 09:22 | Progress Note ---
Assessment and Plan Assessment and plan: -- Acute respiratory failure with hypoxia; requiring intubation Extubated yesterday , nasal cannula oxygen Continue current management Pulmonary following VAP AND Aspiration precaution Bundle -Nebs, scheduled and PRN -- Pneumonia; probable community-acquired Pneumonia protocol, IV antibiotic, follow blood cultures, Oxygen titrate O2 sats to more than 90% -- s/p Cardiac arrest S/P ACLS with return of perfusing rhythm, Cardiology following, Cardiac cah prior to discharge --Mild encephalopathy/probably hypoxic supportive care, CT head without contrast, EEG Neurology consult, supportive care --Non-ST elevation MD continue cardiac medications, heart cath prior to discharge --Dialated CMP; 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 -- Diabetes ADA diet, when/if awake alert, insulin, accu check,hypoglycemia protocol -- Pulmonary hypertension supportive care, continue current care, wean vent as tolerated, -- Hypokalemia REPLACE per protocol -- Anemia of chronic renal disease Monitor and transfuse as needed -- PVD: Continue current management -- DVT prophylaxis SCD to BLE while in bed, prophylactic heparin Patient is stable to be transferred out of ICU to telemetry Physical therapy, follow neuro consult and recommendations Possible discharge in 1-2 days with home health versus a rehabilitation Plan of care reviewed with the patient and her nurse and case management The high probability of a clinically significant, sudden or life threatening deterioration of the [Cardiac, pulmonary, renal, neurologic ] system(s) required my full and direct attention, intervention and personal management. The aggregate critical care time was [31] minutes. This time is in addition to time spent performing reported procedures but includes the following: [x] Data Review and interpretation [x] Patient assessment and monitoring of vital signs [x] Documentation [x] Medication orders and management History Interval history: Patient seen and examined this morning medical records reviewed Patient was extubated yesterday and today feels better Eating her breakfast, communicating appropriately Sometimes confused, not in acute distress Vital signs reviewed Hospitalist Physical - Constitutional Vitals: Temp Pulse Resp BP Pulse Ox 98.0 F 90 17 137/71 100 01/26/19 08:00 01/26/19 06:21 01/26/19 06:21 01/26/19 06:21 01/26/19 08:08 General appearance: Present: no acute distress, well-nourished - EENT Eyes: Present: PERRL, EOM intact - Neck Neck: Present: supple, normal ROM - Respiratory Respiratory effort: normal Respiratory: bilateral: diminished, negative: rales, rhonchi, wheezing - Cardiovascular Rhythm: regular Heart Sounds: Present: S1 & S2 - Extremities Extremities: no ischemia, No edema - Abdominal General gastrointestinal: soft, non-tender, non-distended, normal bowel sounds - Integumentary Integumentary: Present: clear, warm - Psychiatric Psychiatric: appropriate mood/affect, cooperative, other (confused at times) - Neurologic Neurologic: moves all extremities Results - Labs CBC & Chem 7: 01/25/19 05:22 01/25/19 05:22 Labs: Laboratory Last Values WBC 13.2 K/mm3 (4.5-11.0) H 01/25/19 05:22 RBC 3.90 M/mm3 (3.65-5.03) 01/25/19 05:22 Hgb 10.3 gm/dl (10.1-14.3) 01/25/19 05:22 Hct 31.6 % (30.3-42.9) 01/25/19 05:22 MCV 81 fl (79-97) 01/25/19 05:22 MCH 26 pg (28-32) L 01/25/19 05:22 MCHC 33 % (30-34) 01/25/19 05:22 RDW 17.7 % (13.2-15.2) H 01/25/19 05:22 Plt Count 120 K/mm3 (140-440) L 01/25/19 05:22 Lymph % (Auto) 3.3 % (13.4-35.0) L 01/25/19 05:22 [place] % (Auto) 6.2 % (0.0-7.3) 01/25/19 05:22 Eos % (Auto) 0.0 % (0.0-4.3) 01/25/19 05:22 Baso % (Auto) 0.5 % (0.0-1.8) 01/25/19 05:22 Lymph # 0.4 K/mm3 (1.2-5.4) L 01/25/19 05:22 [place] # 0.8 K/mm3 (0.0-0.8) 01/25/19 05:22 Eos # 0.0 K/mm3 (0.0-0.4) 01/25/19 05:22 Baso # 0.1 K/mm3 (0.0-0.1) 01/25/19 05:22 Add Manual Diff Complete 01/22/19 Unknown Total Counted 100 01/22/19 Unknown Seg Neutrophils % 90.0 % (40.0-70.0) H 01/25/19 05:22 Seg Neuts % (Manual) 60.0 % (40.0-70.0) 01/22/19 Unknown 1.0 % 01/22/19 Unknown 25.0 % (13.4-35.0) 01/22/19 Unknown Reactive Lymphs % (Man) 0 % 01/22/19 Unknown 11.0 % (0.0-7.3) H 01/22/19 Unknown 0 % (0.0-4.3) 01/22/19 Unknown 0 % (0.0-1.8) 01/22/19 Unknown 3.0 % 01/22/19 Unknown 0 % 01/22/19 Unknown 0 % 01/22/19 Unknown 0 % 01/22/19 Unknown Nucleated RBC % Not Reportable 01/22/19 Unknown Seg Neutrophils # 11.8 K/mm3 (1.8-7.7) H 01/25/19 05:22 Seg Neutrophils # Man 4.3 K/mm3 (1.8-7.7) 01/22/19 Unknown Band Neutrophils # 0.1 K/mm3 01/22/19 Unknown 1.8 K/mm3 (1.2-5.4) 01/22/19 Unknown Abs React Lymphs (Man) 0.0 K/mm3 01/22/19 Unknown 0.8 K/mm3 (0.0-0.8) 01/22/19 Unknown 0.0 K/mm3 (0.0-0.4) 01/22/19 Unknown 0.0 K/mm3 (0.0-0.1) 01/22/19 Unknown 0.2 K/mm3 01/22/19 Unknown 0.0 K/mm3 01/22/19 Unknown 0.0 K/mm3 01/22/19 Unknown Blast Cells # 0.0 K/mm3 01/22/19 Unknown WBC Morphology Not Reportable 01/22/19 Unknown Hypersegmented Neuts Not Reportable 01/22/19 Unknown Hyposegmented Neuts Not Reportable 01/22/19 Unknown Hypogranular Neuts Not Reportable 01/22/19 Unknown Not Reportable 01/22/19 Unknown Not Reportable 01/22/19 Unknown Not Reportable 01/22/19 Unknown Not Reportable 01/22/19 Unknown Not Reportable 01/22/19 Unknown Not Reportable 01/22/19 Unknown Consistent w auto 01/22/19 Unknown Not Reportable 01/22/19 Unknown Plt Clumps, EDTA Not Reportable 01/22/19 Unknown Few 01/22/19 Unknown Not Reportable 01/22/19 Unknown Not Reportable 01/22/19 Unknown Plt Morphology Comment Not Reportable 01/22/19 Unknown RBC Morphology Not Reportable 01/22/19 Unknown Dimorphic RBCs Not Reportable 01/22/19 Unknown Not Reportable 01/22/19 Unknown Not Reportable 01/22/19 Unknown Not Reportable 01/22/19 Unknown Not Reportable 01/22/19 Unknown Not Reportable 01/22/19 Unknown Not Reportable 01/22/19 Unknown Not Reportable 01/22/19 Unknown Not Reportable 01/22/19 Unknown Not Reportable 01/22/19 Unknown Not Reportable 01/22/19 Unknown Few 01/22/19 Unknown Not Reportable 01/22/19 Unknown Not Reportable 01/22/19 Unknown Not Reportable 01/22/19 Unknown Not Reportable 01/22/19 Unknown Not Reportable 01/22/19 Unknown Not Reportable 01/22/19 Unknown Not Reportable 01/22/19 Unknown Few 01/22/19 Unknown Acanthocytes (Spur) Not Reportable 01/22/19 Unknown Rouleaux Not Reportable 01/22/19 Unknown Not Reportable 01/22/19 Unknown Rare 01/22/19 Unknown Not Reportable 01/22/19 Unknown Not Reportable 01/22/19 Unknown Hem Pathologist Commnt No 01/22/19 Unknown POC ABG pH 7.450 (7.35-7.45) 01/25/19 12:14 POC ABG pCO2 37.3 (35-45) 01/25/19 12:14 POC ABG pO2 110 (80-105) H 01/25/19 12:14 POC ABG HCO3 25.9 (22-26 mml/L) 01/25/19 12:14 POC ABG Total CO2 27 (23-27mmol/L) 01/25/19 12:14 POC ABG O2 Sat 99 01/25/19 12:14 POC ABG Base Excess 2 ((-2) - (+3)mmol/L) 01/25/19 12:14 30 % 01/25/19 12:14 Sodium 137 mmol/L (137-145) 01/25/19 05:22 Potassium 4.0 mmol/L (3.6-5.0) 01/25/19 05:22 Chloride 95.7 mmol/L (98-107) L 01/25/19 05:22 Carbon Dioxide 26 mmol/L (22-30) 01/25/19 05:22 19 mmol/L 01/25/19 05:22 BUN 21 mg/dL (7-17) H 01/25/19 05:22 3.2 mg/dL (0.7-1.2) H 01/25/19 05:22 Estimated GFR 17 ml/min 01/25/19 05:22 7 % 01/25/19 05:22 Glucose 112 mg/dL (65-100) H 01/25/19 05:22 POC Glucose 78 (70-105) 01/26/19 05:14 Lactic Acid 1.70 mmol/L (0.7-2.0) 01/22/19 15:35 Calcium 8.0 mg/dL (8.4-10.2) L 01/25/19 05:22 Magnesium 2.00 mg/dL (1.7-2.3) 01/25/19 05:22 0.60 mg/dL (0.1-1.2) 01/25/19 05:22 AST 12 units/L (5-40) 01/25/19 05:22 ALT 15 units/L (7-56) 01/25/19 05:22 131 units/L (35-129) H 01/25/19 05:22 0.133 ng/mL (0.00-0.029) H* 01/22/19 Unknown 1.30 mg/dL (0.00-1.30) 01/22/19 15:35 NT-Pro-B Natriuret Pep 81157 pg/mL (0-900) H 01/23/19 04:29 6.7 g/dL (6.3-8.2) D 01/25/19 05:22 3.0 g/dL (3.9-5) L 01/25/19 05:22 0.8 % 01/25/19 05:22 Triglycerides 111 mg/dL (2-149) 01/22/19 Unknown Cholesterol 153 mg/dL (50-199) 01/22/19 Unknown 79 mg/dL (50-130) 01/22/19 Unknown 62 mg/dL (40-59) H 01/22/19 Unknown 2.46 % 01/22/19 Unknown Random Vancomycin 9.3 ug/mL (0-40.0) 01/25/19 05:22 Acetaminophen < 5.0 ug/mL (10.0-30.0) L 01/22/19 15:35 Hepatitis A IgM Ab Non-reactive (NonReactive) 01/22/19 15:35 Hep Bs Antigen Non-reactive (Negative) 01/22/19 15:35 Hep B Core IgM Ab Non-reactive (NonReactive) 01/22/19 15:35 Non-reactive (NonReactive) 01/22/19 15:35 Blood Type B POSITIVE 01/22/19 11:53 WOODY Antibody Screen Negative 01/22/19 11:53 Active Medications - Current Medications Current Medications: Generic Name Dose Route Start Last Admin Trade Name Freq PRN Reason Stop Dose Admin Albuterol 2.5 mg 01/22/19 12:23 01/25/19 12:40 Proventil IH 2.5 mg Q3H PRN Administration Shortness Of Breath Aspirin 81 mg 01/23/19 10:00 01/25/19 09:46 Halfprin Ec PO 81 mg QDAY LUCIO Administration Clopidogrel Bisulfate 75 mg 01/23/19 10:00 01/25/19 09:46 Plavix PO 75 mg QDAY LUCIO Administration Dextrose 50 ml 01/23/19 06:43 D50w (25gm) Syringe IV PRN PRN Hypoglycemia Enoxaparin Sodium 30 mg 01/24/19 22:00 01/25/19 22:00 Lovenox SUB-Q 30 mg QDAY@2200 LUCIO Administration Famotidine 20 mg 01/24/19 10:00 01/25/19 09:46 Pepcid PO 20 mg DAILY LUCIO Administration Ferrous Sulfate 308 mg 01/24/19 10:00 01/25/19 09:46 Ferrous Sulfate FEEDTUBE 308 mg DAILY LUCIO Administration Hydrophilic Ointment 1 applic 01/22/19 09:33 Vaseline Lip Therapy TP Q2HR PRN Dry Lips Cefepime HCl 1 gm in 100 mls @ 200 mls/hr 01/23/19 18:00 01/25/19 17:03 Maxipime/Ns 1 Gm/100 Ml IV 01/26/19 23:59 200 mls/hr QPM LUCIO Administration Sodium Chloride 100 mls @ 999 mls/hr 01/24/19 16:49 Nacl 0.9% IV ALHAJI PRN Hypotension Insulin Human Lispro 0 unit 01/26/19 11:30 Humalog SUB-Q ACHS LUCIO Protocol Multi-Ingred Cream/Lotion/Oil/Oint 1 applic 01/22/19 09:33 Artificial Tears Ophth Oint OU Q4HR PRN Dry Eye(s) Pravastatin Sodium 20 mg 01/22/19 22:00 01/25/19 22:00 Pravachol PO 20 mg QHS LUCIO Administration Sodium Chloride 10 ml 01/22/19 22:00 01/25/19 22:01 Sodium Chloride Flush Syringe 10 Ml IV 10 ml BID LUCIO Administration Sodium Chloride 10 ml 01/22/19 12:23 01/25/19 17:04 Sodium Chloride Flush Syringe 10 Ml IV 10 ml PRN PRN Administration LINE FLUSH Nutrition/Malnutrition Assess - Dietary Evaluation Nutrition/Malnutrition Findings: Nutrition Notes Start: 01/23/19 10:56 Freq: Status: Active Protocol: Document 01/25/19 13:46 LP (Rec: 01/25/19 13:49 LP [id number]) Nutrition Notes Initial or Follow up Brief Note Current Diagnosis Decubitus(Pressure Ulcer), Diabetes,Hypertension, Respiratory Failure,Stroke Other Pertinent Diagnosis ESRD on HD (T/R/Sa), PVD, Pneu Current Diet NPO Subjective/Other Information TF off for extubation. Pt has right and left foot wounds. Nutrition Intervention Follow-Up By: 01/27/19 Additional Comments Follow for diet advancement/ intakes if extubated
[2019-01-26] MEDS: PLAVIX PO SCH (09:25)
[2019-01-26] MEDS: FERROUS SULFATE FEEDTUBE SCH (09:25)
[2019-01-26] MEDS: PEPCID PO SCH (09:25)
[2019-01-26] MEDS: HALFPRIN EC PO SCH (09:25)
[2019-01-26] MEDS: SODIUM CHLORIDE FLUSH SYRINGE 10 ML IV SCH ×2 (09:35→22:42)
--- NOTE | 2019-01-26 10:56 | Progress Note ---
Assessment and Plan - Patient Problems (1) ESRD needing dialysis Current Visit: Yes Status: Acute Plan to address problem: cont maintenance HD on MWF schedule while inpatient (2) Cardiac arrest Current Visit: Yes Status: Acute Plan to address problem: s/p ALCS with return of spontaneous circulation, currently off vasopressors. follow cardiology recommendations. (3) Acute respiratory failure Current Visit: Yes Status: Acute Qualifiers: Respiratory failure complication: unspecified whether with hypoxia or hypercapnia Qualified Code(s): J96.00 - Acute respiratory failure, unspecified whether with hypoxia or hypercapnia Plan to address problem: s/p extubation (4) HTN (hypertension) Current Visit: Yes Status: Acute Qualifiers: Hypertension type: essential hypertension Qualified Code(s): I10 - Essential (primary) hypertension Plan to address problem: off antihypertensives s/p cardiac arrest. (5) Pneumonia Current Visit: Yes Status: Acute Qualifiers: Pneumonia type: due to unspecified organism Laterality: bilateral Lung location: upper lobe of lung Qualified Code(s): J18.1 - Lobar pneumonia, unspecified organism Plan to address problem: started on empiric ABXs, dose all meds for HD (6) Anemia Current Visit: No Status: Acute Qualifiers: Anemia type: unspecified type Qualified Code(s): D64.9 - Anemia, unspecified Plan to address problem: cont EPO with HD Subjective Date of service: 01/26/19 Principal diagnosis: Acute hypoxemic resp failure; S/P cardiac arrest; ESRD on dialysis; DM II Interval history: Pt is extubated, awake, alert, in no acute respiratory distress. Objective - Vital Signs Vital signs: Vital Signs - 12hr 01/25/19 01/25/19 01/25/19 23:00 23:01 23:11 Temperature Pulse Rate 96 H 97 H Respiratory 18 17 Rate Blood Pressure 123/65 123/65 O2 Sat by Pulse 100 89 93 Oximetry O2 Sat by Pulse Oximetry [ Anterior Bilateral Throughout] 01/25/19 01/25/19 01/25/19 23:21 23:31 23:41 Temperature Pulse Rate 93 H 95 H 105 H Respiratory 24 22 19 Rate Blood Pressure 123/65 123/65 123/65 O2 Sat by Pulse 100 Oximetry O2 Sat by Pulse Oximetry [ Anterior Bilateral Throughout] 01/25/19 01/25/19 01/26/19 23:51 23:58 00:00 Temperature 98.0 F Pulse Rate 89 97 H Respiratory 16 15 Rate Blood Pressure 123/65 124/66 O2 Sat by Pulse Oximetry O2 Sat by Pulse Oximetry [ Anterior Bilateral Throughout] 01/26/19 01/26/19 01/26/19 00:11 00:28 00:48 Temperature Pulse Rate 97 H 115 H Respiratory 19 25 H Rate Blood Pressure 124/66 124/66 124/66 O2 Sat by Pulse 82 L Oximetry O2 Sat by Pulse Oximetry [ Anterior Bilateral Throughout] 01/26/19 01/26/19 01/26/19 00:53 01:00 01:11 Temperature Pulse Rate 92 H 98 H Respiratory 14 18 Rate Blood Pressure 124/66 130/66 130/66 O2 Sat by Pulse 89 91 94 Oximetry O2 Sat by Pulse Oximetry [ Anterior Bilateral Throughout] 01/26/19 01/26/19 01/26/19 01:21 01:31 01:41 Temperature Pulse Rate 98 H 100 H 96 H Respiratory 16 13 15 Rate Blood Pressure 124/66 124/66 124/66 O2 Sat by Pulse 93 95 Oximetry O2 Sat by Pulse Oximetry [ Anterior Bilateral Throughout] 01/26/19 01/26/19 01/26/19 01:51 02:00 02:11 Temperature Pulse Rate 89 88 86 Respiratory 13 18 13 Rate Blood Pressure 124/66 128/65 128/65 O2 Sat by Pulse Oximetry O2 Sat by Pulse Oximetry [ Anterior Bilateral Throughout] 01/26/19 01/26/19 01/26/19 02:21 02:31 02:41 Temperature Pulse Rate 84 91 H 96 H Respiratory 12 18 18 Rate Blood Pressure 128/65 128/65 128/65 O2 Sat by Pulse Oximetry O2 Sat by Pulse Oximetry [ Anterior Bilateral Throughout] 01/26/19 01/26/19 01/26/19 02:51 03:00 03:11 Temperature Pulse Rate 97 H 96 H 93 H Respiratory 14 18 17 Rate Blood Pressure 128/65 136/74 128/65 O2 Sat by Pulse Oximetry O2 Sat by Pulse Oximetry [ Anterior Bilateral Throughout] 01/26/19 01/26/19 01/26/19 03:21 03:31 03:41 Temperature Pulse Rate 92 H 90 86 Respiratory 14 19 15 Rate Blood Pressure 128/65 128/65 128/65 O2 Sat by Pulse Oximetry O2 Sat by Pulse Oximetry [ Anterior Bilateral Throughout] 01/26/19 01/26/19 01/26/19 03:51 04:00 04:11 Temperature 98.3 F Pulse Rate 89 88 94 H Respiratory 15 13 14 Rate Blood Pressure 128/65 130/70 130/70 O2 Sat by Pulse 88 82 L Oximetry O2 Sat by Pulse Oximetry [ Anterior Bilateral Throughout] 01/26/19 01/26/19 01/26/19 04:21 04:31 04:41 Temperature Pulse Rate 95 H 91 H 92 H Respiratory 19 15 17 Rate Blood Pressure 130/70 130/70 130/70 O2 Sat by Pulse 88 Oximetry O2 Sat by Pulse Oximetry [ Anterior Bilateral Throughout] 01/26/19 01/26/19 01/26/19 04:51 05:00 05:10 Temperature Pulse Rate 90 90 88 Respiratory 16 15 16 Rate Blood Pressure 130/70 137/71 137/71 O2 Sat by Pulse 97 Oximetry O2 Sat by Pulse Oximetry [ Anterior Bilateral Throughout] 01/26/19 01/26/19 01/26/19 05:21 05:31 05:41 Temperature Pulse Rate 89 88 85 Respiratory 15 15 14 Rate Blood Pressure 130/70 130/70 137/71 O2 Sat by Pulse Oximetry O2 Sat by Pulse Oximetry [ Anterior Bilateral Throughout] 01/26/19 01/26/19 01/26/19 05:51 06:00 06:11 Temperature Pulse Rate 83 88 89 Respiratory 14 12 17 Rate Blood Pressure 137/71 127/72 137/71 O2 Sat by Pulse 99 95 97 Oximetry O2 Sat by Pulse Oximetry [ Anterior Bilateral Throughout] 01/26/19 01/26/19 01/26/19 06:21 06:30 06:41 Temperature Pulse Rate 90 87 90 Respiratory 17 16 16 Rate Blood Pressure 137/71 127/72 137/71 O2 Sat by Pulse 85 85 Oximetry O2 Sat by Pulse Oximetry [ Anterior Bilateral Throughout] 01/26/19 01/26/19 01/26/19 06:51 07:00 07:11 Temperature Pulse Rate 88 87 87 Respiratory 18 15 21 Rate Blood Pressure 137/71 133/71 127/72 O2 Sat by Pulse 100 Oximetry O2 Sat by Pulse Oximetry [ Anterior Bilateral Throughout] 01/26/19 01/26/19 01/26/19 07:21 07:31 07:41 Temperature Pulse Rate 86 88 90 Respiratory 16 19 20 Rate Blood Pressure 127/72 127/72 127/72 O2 Sat by Pulse 68 L 99 Oximetry O2 Sat by Pulse Oximetry [ Anterior Bilateral Throughout] 01/26/19 01/26/19 01/26/19 07:51 08:00 08:08 Temperature 98.0 F Pulse Rate 87 87 Respiratory 17 17 Rate Blood Pressure 127/72 127/68 O2 Sat by Pulse 100 100 100 Oximetry O2 Sat by Pulse Oximetry [ Anterior Bilateral Throughout] 01/26/19 01/26/19 01/26/19 08:11 08:21 08:31 Temperature Pulse Rate 85 82 78 Respiratory 13 13 14 Rate Blood Pressure 133/71 133/71 133/71 O2 Sat by Pulse 100 100 100 Oximetry O2 Sat by Pulse Oximetry [ Anterior Bilateral Throughout] 01/26/19 01/26/19 01/26/19 08:41 08:51 09:00 Temperature Pulse Rate 78 82 79 Respiratory 13 13 12 Rate Blood Pressure 133/71 133/71 119/61 O2 Sat by Pulse 100 100 100 Oximetry O2 Sat by Pulse Oximetry [ Anterior Bilateral Throughout] 01/26/19 01/26/19 01/26/19 09:11 09:21 09:31 Temperature Pulse Rate 81 84 88 Respiratory 12 13 26 H Rate Blood Pressure 119/61 119/61 119/61 O2 Sat by Pulse 100 100 98 Oximetry O2 Sat by Pulse Oximetry [ Anterior Bilateral Throughout] 01/26/19 01/26/19 01/26/19 09:41 09:50 09:51 Temperature 98.0 F Pulse Rate 90 86 89 Respiratory 17 19 13 Rate Blood Pressure 119/61 111/56 119/61 O2 Sat by Pulse Oximetry O2 Sat by Pulse 100 Oximetry [ Anterior Bilateral Throughout] 01/26/19 01/26/19 01/26/19 10:00 10:15 10:30 Temperature Pulse Rate 86 89 89 Respiratory 18 Rate Blood Pressure 111/56 105/52 128/59 O2 Sat by Pulse Oximetry O2 Sat by Pulse Oximetry [ Anterior Bilateral Throughout] 01/26/19 10:45 Temperature Pulse Rate 91 H Respiratory Rate Blood Pressure 125/64 O2 Sat by Pulse Oximetry O2 Sat by Pulse Oximetry [ Anterior Bilateral Throughout] - General Appearance General appearance: appears stated age, chronically ill, frail EENT: ATNC, PERRL, mucous membranes moist Neck: no JVD Respiratory: Present: Clear to Ascultation Cardiology: regular, S1S2 Gastrointestinal: normoactive bowel sounds Integumentary: no rash, other (no edema ) Neurologic: no focal deficit, alert and oriented x3, strength 5/5, CN 3-12 intact Psychiatric: mood/affect appropriate, cooperative - Lab 01/25/19 05:22 01/25/19 05:22 Most recent lab results Calcium 8.0 mg/dL (8.4-10.2) L 01/25/19 05:22 Magnesium 2.00 mg/dL (1.7-2.3) 01/25/19 05:22 Medications & Allergies - Medications Allergies/Adverse Reactions: Allergies phenytoin sodium [From Dilantin] Allergy (Verified 05/08/16 07:07) Anaphylaxis phenytoin sodium extended [From Dilantin] Allergy (Verified 05/08/16 07:07) Anaphylaxis Home Medications: Home Medications Medication Instructions Recorded Confirmed Last Taken Type Ferrous Sulfate [Iron 325 MG] 325 mg PO DAILY 01/04/19 01/22/19 01/03/19 History Aspirin EC 81 mg PO QDAY #30 tablet. 01/07/19 01/22/19 Unknown Rx Clopidogrel [Plavix] 75 mg PO QDAY #30 tablet 01/07/19 01/22/19 Unknown Rx Losartan [Cozaar] 100 mg PO DAILY 30 Days #30 tablet 01/07/19 01/22/19 Unknown Rx Metoprolol [Lopressor TAB] 50 mg PO BID #60 tablet 01/07/19 01/22/19 Unknown Rx Pravastatin [Pravachol] 20 mg PO QHS #30 tablet 01/07/19 01/22/19 Unknown Rx Active Medications: Generic Name Dose Route Start Last Admin Trade Name Freq PRN Reason Stop Dose Admin Albuterol 2.5 mg 01/22/19 12:23 01/25/19 12:40 Proventil IH 2.5 mg Q3H PRN Administration Shortness Of Breath Aspirin 81 mg 01/23/19 10:00 01/26/19 09:25 Halfprin Ec PO 81 mg QDAY LUCIO Administration Clopidogrel Bisulfate 75 mg 01/23/19 10:00 01/26/19 09:25 Plavix PO 75 mg QDAY LUCIO Administration Dextrose 50 ml 01/23/19 06:43 D50w (25gm) Syringe IV PRN PRN Hypoglycemia Enoxaparin Sodium 30 mg 01/24/19 22:00 01/25/19 22:00 Lovenox SUB-Q 30 mg QDAY@2200 LUCIO Administration Famotidine 20 mg 01/24/19 10:00 01/26/19 09:25 Pepcid PO 20 mg DAILY LUCIO Administration Ferrous Sulfate 308 mg 01/24/19 10:00 01/26/19 09:25 Ferrous Sulfate FEEDTUBE 308 mg DAILY LUCIO Administration Hydrophilic Ointment 1 applic 01/22/19 09:33 Vaseline Lip Therapy TP Q2HR PRN Dry Lips Cefepime HCl 1 gm in 100 mls @ 200 mls/hr 01/23/19 18:00 01/25/19 17:03 Maxipime/Ns 1 Gm/100 Ml IV 01/26/19 23:59 200 mls/hr QPM LUCIO Administration Sodium Chloride 100 mls @ 999 mls/hr 01/24/19 16:49 Nacl 0.9% IV ALHAJI PRN Hypotension Insulin Human Lispro 0 unit 01/26/19 11:30 Humalog SUB-Q ACHS [facility] Protocol Multi-Ingred Cream/Lotion/Oil/Oint 1 applic 01/22/19 09:33 Artificial Tears Ophth Oint OU Q4HR PRN Dry Eye(s) Pravastatin Sodium 20 mg 01/22/19 22:00 01/25/19 22:00 Pravachol PO 20 mg QHS LUCIO Administration Sodium Chloride 10 ml 01/22/19 22:00 01/25/19 22:01 Sodium Chloride Flush Syringe 10 Ml IV 10 ml BID LUCIO Administration Sodium Chloride 10 ml 01/22/19 12:23 01/25/19 17:04 Sodium Chloride Flush Syringe 10 Ml IV 10 ml PRN PRN Administration LINE FLUSH
--- NOTE | 2019-01-26 11:02 | Progress Note ---
Assessment and Plan Out of the hospital cardiac arrest no strips available for cardiac review End stage renal disease on dialysis Dilated nonischemic cardiomyopathy EF 10-15% 12/2018 noncompliant with outpatient lifevest Coronary artery disease status post PCI of the proximal LAD using a BMS done December 2017. Hx of PAD Chronic hypertesnion Hyperlipidemia Diabetes Recommendations; Dialysis for fluid management. Medical therapy for nonischemic cardiomyopathy and coronary artery disease as tolerated. Otherwise, conservative cardiac management. On discharge, continue life vest monitoring. Subjective Date of service: 01/26/19 Principal diagnosis: Acute hypoxemic resp failure; S/P cardiac arrest; ESRD on dialysis; DM II Interval history: Patient is alert with confusion. No distress noted Objective Vital Signs Temp Pulse Pulse Pulse Resp Resp Resp 01/26/19 10:45 91 H 01/26/19 10:30 89 01/26/19 10:15 89 01/26/19 10:00 86 18 01/26/19 09:51 89 13 01/26/19 09:50 98.0 F 86 19 01/26/19 09:41 90 17 01/26/19 09:31 88 26 H 01/26/19 09:21 84 13 01/26/19 09:11 81 12 01/26/19 09:00 79 12 01/26/19 08:51 82 13 01/26/19 08:41 78 13 01/26/19 08:31 78 14 01/26/19 08:21 82 13 01/26/19 08:11 85 13 01/26/19 08:08 01/26/19 08:00 98.0 F 87 17 01/26/19 07:51 87 17 01/26/19 07:41 90 20 01/26/19 07:31 88 19 01/26/19 07:21 86 16 01/26/19 07:11 87 21 01/26/19 07:00 87 15 01/26/19 06:51 88 18 01/26/19 06:41 90 16 01/26/19 06:30 87 16 01/26/19 06:21 90 17 01/26/19 06:11 89 17 01/26/19 06:00 88 12 01/26/19 05:51 83 14 01/26/19 05:41 85 14 01/26/19 05:31 88 15 01/26/19 05:21 89 15 01/26/19 05:10 88 16 01/26/19 05:00 90 15 01/26/19 04:51 90 16 01/26/19 04:41 92 H 17 01/26/19 04:31 91 H 15 01/26/19 04:21 95 H 19 01/26/19 04:11 94 H 14 01/26/19 04:00 98.3 F 88 13 01/26/19 03:51 89 15 01/26/19 03:41 86 15 01/26/19 03:31 90 19 01/26/19 03:21 92 H 14 01/26/19 03:11 93 H 17 01/26/19 03:00 96 H 18 01/26/19 02:51 97 H 14 01/26/19 02:41 96 H 18 01/26/19 02:31 91 H 18 01/26/19 02:21 84 12 01/26/19 02:11 86 13 01/26/19 02:00 88 18 01/26/19 01:51 89 13 01/26/19 01:41 96 H 15 01/26/19 01:31 100 H 13 01/26/19 01:21 98 H 16 01/26/19 01:11 98 H 18 01/26/19 01:00 92 H 14 01/26/19 00:53 01/26/19 00:48 01/26/19 00:28 115 H 25 H 01/26/19 00:11 97 H 19 01/26/19 00:00 97 H 15 01/25/19 23:58 98.0 F 01/25/19 23:51 89 16 01/25/19 23:41 105 H 19 01/25/19 23:31 95 H 22 01/25/19 23:21 93 H 24 01/25/19 23:11 97 H 17 01/25/19 23:01 96 H 18 01/25/19 23:00 01/25/19 22:51 97 H 17 01/25/19 22:41 99 H 17 01/25/19 22:31 96 H 16 01/25/19 22:21 96 H 20 01/25/19 22:11 95 H 16 01/25/19 22:00 92 H 14 01/25/19 21:50 81 19 01/25/19 21:41 80 15 01/25/19 21:35 77 18 01/25/19 21:31 76 16 01/25/19 21:21 88 18 01/25/19 21:11 88 23 01/25/19 21:00 82 17 01/25/19 20:51 82 19 01/25/19 20:41 84 17 01/25/19 20:31 77 19 01/25/19 20:21 78 17 01/25/19 20:11 81 16 01/25/19 20:03 78 17 01/25/19 20:00 98.1 F 83 18 01/25/19 19:51 88 16 01/25/19 19:41 85 18 01/25/19 19:31 80 18 01/25/19 19:21 85 19 01/25/19 19:11 87 19 01/25/19 19:00 88 15 01/25/19 18:51 90 24 01/25/19 18:41 90 15 01/25/19 18:31 96 H 25 H 01/25/19 18:21 101 H 22 01/25/19 18:11 97 H 12 01/25/19 18:00 94 H 16 01/25/19 17:51 95 H 16 01/25/19 17:41 94 H 12 01/25/19 17:31 99 H 16 01/25/19 17:21 97 H 22 01/25/19 17:11 98 H 19 01/25/19 17:00 91 H 24 01/25/19 16:51 79 14 01/25/19 16:41 80 16 01/25/19 16:31 83 17 01/25/19 16:21 86 19 01/25/19 16:11 95 H 18 01/25/19 16:00 98.1 F 85 19 01/25/19 15:51 89 16 01/25/19 15:41 88 15 01/25/19 15:31 88 13 01/25/19 15:21 88 22 01/25/19 15:11 95 H 16 01/25/19 15:00 92 H 12 01/25/19 14:51 99 H 20 01/25/19 14:41 94 H 21 01/25/19 14:31 97 H 20 01/25/19 14:27 95 H 20 01/25/19 14:11 93 H 15 01/25/19 14:00 92 H 16 01/25/19 13:51 94 H 20 01/25/19 13:41 93 H 16 01/25/19 13:31 99 H 18 01/25/19 13:21 94 H 13 01/25/19 13:11 94 H 19 01/25/19 13:00 93 H 23 01/25/19 12:55 94 H 20 01/25/19 12:51 91 H 22 01/25/19 12:41 93 H 94 H 94 H 18 20 20 01/25/19 12:31 91 H 24 01/25/19 12:21 84 12 01/25/19 12:11 86 14 01/25/19 12:01 84 17 01/25/19 12:00 98.5 F 01/25/19 11:51 85 13 01/25/19 11:41 80 12 01/25/19 11:31 80 12 01/25/19 11:30 81 01/25/19 11:21 84 14 01/25/19 11:11 82 13 01/25/19 11:00 83 15 BP Pulse Ox Pulse Ox 01/26/19 10:45 125/64 01/26/19 10:30 128/59 01/26/19 10:15 105/52 01/26/19 10:00 111/56 01/26/19 09:51 119/61 01/26/19 09:50 111/56 100 01/26/19 09:41 119/61 01/26/19 09:31 119/61 98 01/26/19 09:21 119/61 100 01/26/19 09:11 119/61 100 01/26/19 09:00 119/61 100 01/26/19 08:51 133/71 100 01/26/19 08:41 133/71 100 01/26/19 08:31 133/71 100 01/26/19 08:21 133/71 100 01/26/19 08:11 133/71 100 01/26/19 08:08 100 01/26/19 08:00 127/68 100 01/26/19 07:51 127/72 100 01/26/19 07:41 127/72 99 01/26/19 07:31 127/72 01/26/19 07:21 127/72 68 L 01/26/19 07:11 127/72 01/26/19 07:00 133/71 100 01/26/19 06:51 137/71 01/26/19 06:41 137/71 85 01/26/19 06:30 127/72 01/26/19 06:21 137/71 85 01/26/19 06:11 137/71 97 01/26/19 06:00 127/72 95 01/26/19 05:51 137/71 99 01/26/19 05:41 137/71 01/26/19 05:31 130/70 01/26/19 05:21 130/70 01/26/19 05:10 137/71 97 01/26/19 05:00 137/71 01/26/19 04:51 130/70 01/26/19 04:41 130/70 01/26/19 04:31 130/70 01/26/19 04:21 130/70 88 01/26/19 04:11 130/70 82 L 01/26/19 04:00 130/70 88 01/26/19 03:51 128/65 01/26/19 03:41 128/65 01/26/19 03:31 128/65 01/26/19 03:21 128/65 01/26/19 03:11 128/65 01/26/19 03:00 136/74 01/26/19 02:51 128/65 01/26/19 02:41 128/65 01/26/19 02:31 128/65 01/26/19 02:21 128/65 01/26/19 02:11 128/65 01/26/19 02:00 128/65 01/26/19 01:51 124/66 01/26/19 01:41 124/66 01/26/19 01:31 124/66 95 01/26/19 01:21 124/66 93 01/26/19 01:11 130/66 94 01/26/19 01:00 130/66 91 01/26/19 00:53 124/66 89 01/26/19 00:48 124/66 82 L 01/26/19 00:28 124/66 01/26/19 00:11 124/66 01/26/19 00:00 124/66 01/25/19 23:58 01/25/19 23:51 123/65 06/04/19 23:41 123/65 01/25/19 23:31 123/65 01/25/19 23:21 123/65 100 01/25/19 23:11 123/65 93 01/25/19 23:01 123/65 89 01/25/19 23:00 100 01/25/19 22:51 119/59 82 L 01/25/19 22:41 119/59 99 01/25/19 22:31 119/59 96 01/25/19 22:21 119/59 97 01/25/19 22:11 119/59 100 01/25/19 22:00 119/59 84 01/25/19 21:50 106/49 100 01/25/19 21:41 102/47 100 01/25/19 21:35 100 01/25/19 21:31 102/47 100 01/25/19 21:21 106/49 99 01/25/19 21:11 106/49 100 01/25/19 21:00 106/49 100 01/25/19 20:51 102/47 100 01/25/19 20:41 102/47 100 01/25/19 20:31 102/47 100 01/25/19 20:21 102/47 100 01/25/19 20:11 102/47 100 01/25/19 20:03 102/47 100 01/25/19 20:00 102/47 100 01/25/19 19:51 106/52 100 01/25/19 19:41 106/52 01/25/19 19:31 106/52 01/25/19 19:21 106/52 01/25/19 19:11 106/52 01/25/19 19:00 106/52 100 01/25/19 18:51 115/51 93 01/25/19 18:41 115/51 01/25/19 18:31 115/51 01/25/19 18:21 115/51 93 01/25/19 18:11 115/51 01/25/19 18:00 115/51 01/25/19 17:51 125/60 01/25/19 17:41 125/60 92 01/25/19 17:31 125/60 01/25/19 17:21 125/60 100 06/04/19 17:11 125/60 06/19 17:00 125/60 100 01/25/19 16:51 116/52 100 01/25/19 16:41 116/52 100 01/25/19 16:31 116/52 100 01/25/19 16:21 116/52 100 01/25/19 16:11 116/52 01/25/19 16:00 116/52 100 01/25/19 15:51 114/57 100 01/25/19 15:41 114/57 100 01/25/19 15:31 114/57 100 01/25/19 15:21 114/57 100 01/25/19 15:11 114/57 100 01/25/19 15:00 114/57 96 01/25/19 14:51 126/55 99 01/25/19 14:41 126/55 98 01/25/19 14:31 100 01/25/19 14:27 99 01/25/19 14:11 126/55 100 01/25/19 14:00 126/55 100 01/25/19 13:51 125/61 100 01/25/19 13:41 125/61 97 01/25/19 13:31 125/61 99 01/25/19 13:21 125/61 100 01/25/19 13:11 125/61 97 01/25/19 13:00 125/61 98 01/25/19 12:55 01/25/19 12:51 133/66 100 01/25/19 12:41 133/66 98 01/25/19 12:31 133/66 100 01/25/19 12:21 133/66 01/25/19 12:11 133/66 100 01/25/19 12:01 133/66 100 01/25/19 12:00 01/25/19 11:51 122/61 100 01/25/19 11:41 122/61 100 01/25/19 11:31 122/61 100 01/25/19 11:30 01/25/19 11:21 122/61 100 01/25/19 11:11 122/61 100 01/25/19 11:00 122/61 100 - Physical Examination General: No Apparent Distress HEENT: Positive: PERRL Neck: Positive: neck supple Cardiac: Positive: Reg Rate and Rhythm Lungs: Positive: Decreased Breath Sounds Neuro: Positive: Weakness Extremities: Absent: edema (left transmetatarsal amputation) - Allied health notes Allied health notes reviewed: nursing
[2019-01-26] MEDS: MORPHINE IV PRN ×2 (12:19→17:34)
[2019-01-26] MEDS: SODIUM CHLORIDE FLUSH SYRINGE 10 ML IV PRN (12:20)
[2019-01-26] MEDS: PROCRIT SUB-Q SCH (12:57)
--- NOTE | 2019-01-26 13:45 | Progress Note ---
Assessment and Plan Acute hypoxemic respiratory failure, on mechanical ventilatory support. Status post cardiac arrest with return of spontaneous circulation. End-stage renal disease, on dialysis. Diabetes type 2. Hypertension. History of cerebrovascular accident. Peripheral vascular disease. History of pulmonary hypertension. - chest pain likely musculoskeletal from CPR - EKG & troponins ordered re: CMOP history - prn analgesia - continue GI & VTE prophylaxis - continue to wean supplemental oxygen to keep O2 sats 88-90% - continue HD/UF for toxin and volume clearance - continue empiric antibiotics and de-escalate based on clinical and microbiologic data (Cultures NGTD) - Continue cardioprotective measures (cardiology evaluation ongoing) - Monitor renal indices closely - Avoid nephrotoxic agents, adjust all medications for CrCL - Strict intake and output monitoring - continue enteral nutrition as tolerated - continue accuchecks with glycemic control per SSI for target glucose of 140- 180 mg/dL - Maintenance of sleep -wake cycle - Mobility as tolerated by hemodynamics - PT/OT as tolerated - Influenza and pneumonia vaccination per protocol - discharge planning ongoing concurrently .... transfer to medical floor ok Subjective Date of service: 01/26/19 Principal diagnosis: Acute hypoxemic resp failure; S/P cardiac arrest; ESRD on dialysis; DM II Interval history: Patient is seen today for: Acute hypoxemic resp failure on MVS; S/P cardiac arrest with ROSC; ESRD on dialysis; DM II; HTN; H/O CVA; PVD; H/O pulmonary hypertension. Seen and examined at bedside; 24hour events reviewed; nursing and respiratory care staff consulted; no adverse overnight events reported to me; extubated yesterday and doing well so far; she did complain of chest pain this morning during dialysis (which is still ongoing); no N/V/F/C Objective Vital Signs - 12hr 01/26/19 01/26/19 01/26/19 01:51 02:00 02:11 Temperature Pulse Rate 89 88 86 Respiratory 13 18 13 Rate Blood Pressure 124/66 128/65 128/65 O2 Sat by Pulse Oximetry O2 Sat by Pulse Oximetry [ Anterior Bilateral Throughout] 01/26/19 01/26/19 01/26/19 02:21 02:31 02:41 Temperature Pulse Rate 84 91 H 96 H Respiratory 12 18 18 Rate Blood Pressure 128/65 128/65 128/65 O2 Sat by Pulse Oximetry O2 Sat by Pulse Oximetry [ Anterior Bilateral Throughout] 01/26/19 01/26/19 01/26/19 02:51 03:00 03:11 Temperature Pulse Rate 97 H 96 H 93 H Respiratory 14 18 17 Rate Blood Pressure 128/65 136/74 128/65 O2 Sat by Pulse Oximetry O2 Sat by Pulse Oximetry [ Anterior Bilateral Throughout] 01/26/19 01/26/19 01/26/19 03:21 03:31 03:41 Temperature Pulse Rate 92 H 90 86 Respiratory 14 19 15 Rate Blood Pressure 128/65 128/65 128/65 O2 Sat by Pulse Oximetry O2 Sat by Pulse Oximetry [ Anterior Bilateral Throughout] 01/26/19 01/26/19 01/26/19 03:51 04:00 04:11 Temperature 98.3 F Pulse Rate 89 88 94 H Respiratory 15 13 14 Rate Blood Pressure 128/65 130/70 130/70 O2 Sat by Pulse 88 82 L Oximetry O2 Sat by Pulse Oximetry [ Anterior Bilateral Throughout] 01/26/19 01/26/19 01/26/19 04:21 04:31 04:41 Temperature Pulse Rate 95 H 91 H 92 H Respiratory 19 15 17 Rate Blood Pressure 130/70 130/70 130/70 O2 Sat by Pulse 88 Oximetry O2 Sat by Pulse Oximetry [ Anterior Bilateral Throughout] 01/26/19 01/26/19 01/26/19 04:51 05:00 05:10 Temperature Pulse Rate 90 90 88 Respiratory 16 15 16 Rate Blood Pressure 130/70 137/71 137/71 O2 Sat by Pulse 97 Oximetry O2 Sat by Pulse Oximetry [ Anterior Bilateral Throughout] 01/26/19 01/26/19 01/26/19 05:21 05:31 05:41 Temperature Pulse Rate 89 88 85 Respiratory 15 15 14 Rate Blood Pressure 130/70 130/70 137/71 O2 Sat by Pulse Oximetry O2 Sat by Pulse Oximetry [ Anterior Bilateral Throughout] 01/26/19 01/26/19 01/26/19 05:51 06:00 06:11 Temperature Pulse Rate 83 88 89 Respiratory 14 12 17 Rate Blood Pressure 137/71 127/72 137/71 O2 Sat by Pulse 99 95 97 Oximetry O2 Sat by Pulse Oximetry [ Anterior Bilateral Throughout] 01/26/19 01/26/19 01/26/19 06:21 06:30 06:41 Temperature Pulse Rate 90 87 90 Respiratory 17 16 16 Rate Blood Pressure 137/71 127/72 137/71 O2 Sat by Pulse 85 85 Oximetry O2 Sat by Pulse Oximetry [ Anterior Bilateral Throughout] 01/26/19 01/26/19 01/26/19 06:51 07:00 07:11 Temperature Pulse Rate 88 87 87 Respiratory 18 15 21 Rate Blood Pressure 137/71 133/71 127/72 O2 Sat by Pulse 100 Oximetry O2 Sat by Pulse Oximetry [ Anterior Bilateral Throughout] 01/26/19 01/26/19 01/26/19 07:21 07:31 07:41 Temperature Pulse Rate 86 88 90 Respiratory 16 19 20 Rate Blood Pressure 127/72 127/72 127/72 O2 Sat by Pulse 68 L 99 Oximetry O2 Sat by Pulse Oximetry [ Anterior Bilateral Throughout] 01/26/19 01/26/19 01/26/19 07:51 08:00 08:08 Temperature 98.0 F Pulse Rate 87 87 Respiratory 17 17 Rate Blood Pressure 127/72 127/68 O2 Sat by Pulse 100 100 100 Oximetry O2 Sat by Pulse Oximetry [ Anterior Bilateral Throughout] 01/26/19 01/26/19 01/26/19 08:11 08:21 08:31 Temperature Pulse Rate 85 82 78 Respiratory 13 13 14 Rate Blood Pressure 133/71 133/71 133/71 O2 Sat by Pulse 100 100 100 Oximetry O2 Sat by Pulse Oximetry [ Anterior Bilateral Throughout] 01/26/19 01/26/19 01/26/19 08:41 08:51 09:00 Temperature Pulse Rate 78 82 79 Respiratory 13 13 12 Rate Blood Pressure 133/71 133/71 119/61 O2 Sat by Pulse 100 100 100 Oximetry O2 Sat by Pulse Oximetry [ Anterior Bilateral Throughout] 01/26/19 01/26/19 01/26/19 09:11 09:21 09:31 Temperature Pulse Rate 81 84 88 Respiratory 12 13 26 H Rate Blood Pressure 119/61 119/61 119/61 O2 Sat by Pulse 100 100 98 Oximetry O2 Sat by Pulse Oximetry [ Anterior Bilateral Throughout] 01/26/19 01/26/19 01/26/19 09:41 09:50 09:51 Temperature 98.0 F Pulse Rate 90 86 89 Respiratory 17 19 13 Rate Blood Pressure 119/61 111/56 119/61 O2 Sat by Pulse Oximetry O2 Sat by Pulse 100 Oximetry [ Anterior Bilateral Throughout] 01/26/19 01/26/19 01/26/19 10:00 10:15 10:30 Temperature Pulse Rate 86 89 89 Respiratory 18 Rate Blood Pressure 111/56 105/52 128/59 O2 Sat by Pulse Oximetry O2 Sat by Pulse Oximetry [ Anterior Bilateral Throughout] 01/26/19 01/26/19 01/26/19 10:45 11:00 11:15 Temperature Pulse Rate 91 H 91 H 90 Respiratory Rate Blood Pressure 125/64 118/64 121/65 O2 Sat by Pulse Oximetry O2 Sat by Pulse Oximetry [ Anterior Bilateral Throughout] 01/26/19 01/26/19 01/26/19 11:31 11:45 12:00 Temperature 98.4 F Pulse Rate 92 H 90 94 H Respiratory Rate Blood Pressure 125/68 128/66 114/64 O2 Sat by Pulse Oximetry O2 Sat by Pulse Oximetry [ Anterior Bilateral Throughout] 01/26/19 01/26/19 01/26/19 12:15 12:30 12:45 Temperature Pulse Rate 92 H 90 87 Respiratory Rate Blood Pressure 128/65 136/68 125/84 O2 Sat by Pulse Oximetry O2 Sat by Pulse Oximetry [ Anterior Bilateral Throughout] 01/26/19 01/26/19 13:00 13:15 Temperature Pulse Rate 86 89 Respiratory Rate Blood Pressure 125/65 129/66 O2 Sat by Pulse Oximetry O2 Sat by Pulse Oximetry [ Anterior Bilateral Throughout] Constitutional: appears uncomfortable, other (elderly looking AAF, normocephalic resting in bed on MVS) Eyes: non-icteric ENT: oropharynx moist, other (extubated) Neck: supple, no lymphadenopathy, no JVD, other (no thyromegaly) Effort: mildly labored Ascultation: Bilateral: diminished breath sounds, rhonchi, other (chest pain reproducible on palpation of chest wall) Percussion: Bilateral: not dull Cardiovascular: regular rate and rhythm, murmur noted (systolic) Gastrointestinal: normoactive bowel sounds, soft, non-tender, non-distended Integumentary: rash Extremities: no cyanosis, no edema, pulses normal, no ischemia or petechiae Neurologic: normal mental status, non-focal exam (grossly), pupils equal and round, CN II-XII normal Psychiatric: other (somnolent) CBC and BMP: 01/25/19 05:22 01/25/19 05:22 ABG, PT/INR, D-dimer: ABG POC ABG pH 7.450 (7.35-7.45) 01/25/19 12:14 POC ABG pCO2 37.3 (35-45) 01/25/19 12:14 POC ABG pO2 110 (80-105) H 01/25/19 12:14 POC ABG HCO3 25.9 (22-26 mml/L) 01/25/19 12:14 POC ABG Total CO2 27 (23-27mmol/L) 01/25/19 12:14 POC ABG O2 Sat 99 01/25/19 12:14 Abnormal lab findings: Abnormal Labs 01/22/19 01/22/19 01/22/19 09:27 11:09 15:07 WBC RBC Hgb Hct MCH RDW Plt Count Lymph % (Auto) Branch % (Auto) Lymph # Seg Neutrophils % Monocytes % (Manual) Seg Neutrophils # POC ABG pO2 207 H Potassium Chloride Carbon Dioxide BUN Creatinine Glucose POC Glucose 113 H 134 H Calcium Magnesium AST ALT Alkaline Phosphatase Troponin T NT-Pro-B Natriuret Pep Total Protein Albumin HDL Cholesterol Acetaminophen 01/22/19 01/22/19 01/22/19 15:35 17:40 Unknown WBC RBC Hgb Hct MCH 26 L RDW 17.3 H Plt Count Lymph % (Auto) Branch % (Auto) Lymph # Seg Neutrophils % Monocytes % (Manual) 11.0 H Seg Neutrophils # POC ABG pO2 Potassium Chloride Carbon Dioxide BUN Creatinine Glucose POC Glucose 121 H Calcium Magnesium AST ALT Alkaline Phosphatase Troponin T NT-Pro-B Natriuret Pep Total Protein Albumin HDL Cholesterol Acetaminophen < 5.0 L 01/22/19 01/23/19 01/23/19 Unknown 01:26 03:48 WBC RBC Hgb Hct MCH RDW Plt Count Lymph % (Auto) Branch % (Auto) Lymph # Seg Neutrophils % Monocytes % (Manual) Seg Neutrophils # POC ABG pO2 138 H Potassium Chloride 96.2 L Carbon Dioxide BUN 20 H Creatinine 2.4 H Glucose 150 H POC Glucose 108 H Calcium Magnesium AST 109 H ALT 63 H Alkaline Phosphatase 227 H Troponin T 0.133 H* NT-Pro-B Natriuret Pep Total Protein Albumin 3.8 L HDL Cholesterol 62 H Acetaminophen 01/23/19 01/23/19 01/23/19 04:29 04:29 17:11 WBC RBC 3.27 L Hgb 8.8 L Hct 26.8 L D MCH 27 L RDW 17.5 H Plt Count 100 L Lymph % (Auto) 9.1 L Branch % (Auto) 11.4 H Lymph # 0.4 L Seg Neutrophils % 78.3 H Monocytes % (Manual) Seg Neutrophils # POC ABG pO2 Potassium 3.0 L D Chloride 109.2 H Carbon Dioxide 18 L D BUN 23 H Creatinine 2.6 H Glucose POC Glucose 63 L Calcium 6.4 L D Magnesium 1.50 L AST ALT Alkaline Phosphatase Troponin T NT-Pro-B Natriuret Pep 19526 H Total Protein 4.7 L D Albumin 2.2 L HDL Cholesterol Acetaminophen 01/23/19 01/24/19 01/24/19 19:49 02:06 03:20 WBC RBC Hgb Hct MCH RDW Plt Count Lymph % (Auto) Branch % (Auto) Lymph # Seg Neutrophils % Monocytes % (Manual) Seg Neutrophils # POC ABG pO2 113 H 114 H Potassium Chloride Carbon Dioxide BUN Creatinine Glucose POC Glucose 173 H Calcium Magnesium AST ALT Alkaline Phosphatase Troponin T NT-Pro-B Natriuret Pep Total Protein Albumin HDL Cholesterol Acetaminophen 01/24/19 01/24/19 01/24/19 05:25 05:40 05:40 WBC RBC Hgb Hct MCH 26 L RDW 18.3 H Plt Count 109 L Lymph % (Auto) Branch % (Auto) Lymph # Seg Neutrophils % Monocytes % (Manual) Seg Neutrophils # POC ABG pO2 Potassium Chloride Carbon Dioxide BUN 37 H Creatinine 3.9 H Glucose 142 H POC Glucose 150 H Calcium 8.2 L D Magnesium 2.70 H AST ALT Alkaline Phosphatase Troponin T NT-Pro-B Natriuret Pep Total Protein Albumin HDL Cholesterol Acetaminophen 01/24/19 01/24/19 01/24/19 11:34 17:32 23:36 WBC RBC Hgb Hct MCH RDW Plt Count Lymph % (Auto) Branch % (Auto) Lymph # Seg Neutrophils % Monocytes % (Manual) Seg Neutrophils # POC ABG pO2 Potassium Chloride Carbon Dioxide BUN Creatinine Glucose POC Glucose 143 H 174 H 106 H Calcium Magnesium AST ALT Alkaline Phosphatase Troponin T NT-Pro-B Natriuret Pep Total Protein Albumin HDL Cholesterol Acetaminophen 01/25/19 01/25/19 01/25/19 05:21 05:22 05:22 WBC 13.2 H RBC Hgb Hct MCH 26 L RDW 17.7 H Plt Count 120 L Lymph % (Auto) 3.3 L Branch % (Auto) Lymph # 0.4 L Seg Neutrophils % 90.0 H Monocytes % (Manual) Seg Neutrophils # 11.8 H POC ABG pO2 Potassium Chloride 95.7 L Carbon Dioxide BUN 21 H Creatinine 3.2 H Glucose 112 H POC Glucose 111 H Calcium 8.0 L Magnesium AST ALT Alkaline Phosphatase 131 H Troponin T NT-Pro-B Natriuret Pep Total Protein Albumin 3.0 L HDL Cholesterol Acetaminophen 01/25/19 01/25/19 01/25/19 11:53 12:14 17:26 WBC RBC Hgb Hct MCH RDW Plt Count Lymph % (Auto) Branch % (Auto) Lymph # Seg Neutrophils % Monocytes % (Manual) Seg Neutrophils # POC ABG pO2 110 H Potassium Chloride Carbon Dioxide BUN Creatinine Glucose POC Glucose 113 H 109 H Calcium Magnesium AST ALT Alkaline Phosphatase Troponin T NT-Pro-B Natriuret Pep Total Protein Albumin HDL Cholesterol Acetaminophen 01/25/19 01/26/19 23:50 12:32 WBC RBC Hgb Hct MCH RDW Plt Count Lymph % (Auto) Branch % (Auto) Lymph # Seg Neutrophils % Monocytes % (Manual) Seg Neutrophils # POC ABG pO2 Potassium Chloride Carbon Dioxide BUN Creatinine Glucose POC Glucose 254 H 138 H Calcium Magnesium AST ALT Alkaline Phosphatase Troponin T NT-Pro-B Natriuret Pep Total Protein Albumin HDL Cholesterol Acetaminophen Allied health notes reviewed: nursing
[2019-01-26 14:19] LABS: Creatine Kinase MB 1.8 ng/mL (0.0-4.0)
[2019-01-26] MEDS: MAXIPIME/NS 1 GM/100 ML 1 GM/100 ML BAG IV SCH (17:34)
--- NOTE | 2019-01-26 20:31 | Cat Scan Report ---
PROCEDURE: CT HEAD/BRAIN WO CON TECHNIQUE: Computerized tomography of the head was performed without contrast material. CT DOSE LENGTH PRODUCT: 920.5 mGycm HISTORY: altered level of consciousness COMPARISONS: None . 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 Irregular areas of encephalomalacia are noted involving bilateral frontal lobes with out any mass effect. 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 An old lacunar infarct is noted involving left periventricular parietal white matter . Benign-appearing calcifications are noted involving bilateral basal ganglia and right-side anthony. At herosclerotic calcification is noted involving internal carotid and vertebral arteries. IMPRESSION: Study is limited due to streak artifacts from aneurysm clips. No obvious acute intracranial abnormality This document is electronically signed by Crow Kingsley MD., January 26 2019 08:29:55 PM ET
[2019-01-26] MEDS: LOVENOX SUB-Q SCH (22:40)
[2019-01-26] MEDS: PRAVACHOL PO SCH (22:41)
[2019-01-27] MEDS: MORPHINE IV PRN ×2 (06:08→16:19)
--- NOTE | 2019-01-27 08:33 | Progress Note ---
Assessment and Plan Acute hypoxemic respiratory failure, S/P mechanical ventilatory support. Status post cardiac arrest with return of spontaneous circulation. End-stage renal disease, on dialysis. Diabetes type 2. Hypertension. History of cerebrovascular accident. Peripheral vascular disease. History of pulmonary hypertension -wean supplemental oxygen to keep O2 sats >90% - continue VTE prophylaxis - continue HD/UF for toxin and volume clearance - continue empiric antibiotics and de-escalate based on clinical and microbiologic data (Cultures NGTD) - Continue cardioprotective measures (cardiology evaluation ongoing) - Monitor renal indices closely - Avoid nephrotoxic agents, adjust all medications for CrCL - Strict intake and output monitoring - continue enteral nutrition as tolerated -aspiration precautions -PT/OT/Mobility, increase activity - continue accuchecks with glycemic control per SSI for target glucose of 140- 180 mg/dL - Maintenance of sleep -wake cycle - Influenza and pneumonia vaccination per protocol - discharge planning ongoing concurrently Subjective Date of service: 01/27/19 Principal diagnosis: Acute hypoxemic resp failure; S/P cardiac arrest; ESRD on dialysis; DM II Interval history: Patient is seen today for: Acute hypoxemic resp failure s/p MVS; S/P cardiac arrest with ROSC; ESRD on dialysis; DM II; HTN; H/O CVA; PVD; H/O pulmonary hypertension. Seen and examined at bedside; 24hour events reviewed; nursing and respiratory care staff consulted; no adverse overnight events reported to me; extubated and doing well , on supplemental oxygen at 2L/min; no N/V/F/C, awake and alert, denies any chest pain or shortness of breath. No fevers or nausea, no diarrhea, no vomiting. Wants to know if she will get HD today Objective Vital Signs - 12hr 01/26/19 01/26/19 01/26/19 21:00 21:23 23:20 Temperature 97.9 F Pulse Rate 85 Pulse Rate [ 87 From Monitor] Pulse Rate [ 18 L Right Dorsalis Pedis] Respiratory 18 Rate Blood Pressure 96/46 Blood Pressure [Left] O2 Sat by Pulse 100 100 93 Oximetry 01/27/19 01/27/19 01/27/19 00:00 04:00 04:40 Temperature 98.4 F Pulse Rate 85 103 H 103 H Pulse Rate [ From Monitor] Pulse Rate [ Right Dorsalis Pedis] Respiratory 18 Rate Blood Pressure Blood Pressure 115/58 [Left] O2 Sat by Pulse 94 Oximetry Constitutional: appears uncomfortable, other (elderly looking AAF, normocephalic resting in bed ) Eyes: non-icteric ENT: oropharynx moist, other (extubated) Neck: supple, no lymphadenopathy, no JVD, other (no thyromegaly) Effort: normal Ascultation: Bilateral: diminished breath sounds, rhonchi, other (chest pain reproducible on palpation of chest wall) Percussion: Bilateral: not dull Cardiovascular: regular rate and rhythm, murmur noted (systolic), other (S1,S2) Gastrointestinal: normoactive bowel sounds, soft, non-tender, non-distended Integumentary: rash Extremities: no cyanosis, no edema, pulses normal, no ischemia or petechiae Neurologic: normal mental status, non-focal exam, pupils equal and round, CN II- XII normal, motor strength normal and Psychiatric: mood appropriate, affect normal CBC and BMP: 01/25/19 05:22 01/25/19 05:22 ABG, PT/INR, D-dimer: ABG POC ABG pH 7.450 (7.35-7.45) 01/25/19 12:14 POC ABG pCO2 37.3 (35-45) 01/25/19 12:14 POC ABG pO2 110 (80-105) H 01/25/19 12:14 POC ABG HCO3 25.9 (22-26 mml/L) 01/25/19 12:14 POC ABG Total CO2 27 (23-27mmol/L) 01/25/19 12:14 POC ABG O2 Sat 99 01/25/19 12:14 Abnormal lab findings: Abnormal Labs 01/22/19 01/22/19 01/22/19 09:27 11:09 15:07 WBC RBC Hgb Hct MCH RDW Plt Count Lymph % (Auto) [place] % (Auto) Lymph # Seg Neutrophils % Monocytes % (Manual) Seg Neutrophils # POC ABG pO2 207 H Potassium Chloride Carbon Dioxide BUN Creatinine Glucose POC Glucose 113 H 134 H Calcium Magnesium AST ALT Alkaline Phosphatase CK-MB (CK-2) Rel Index Troponin T NT-Pro-B Natriuret Pep Total Protein Albumin HDL Cholesterol Acetaminophen 01/22/19 01/22/19 01/22/19 15:35 17:40 Unknown WBC RBC Hgb Hct MCH 26 L RDW 17.3 H Plt Count Lymph % (Auto) [place] % (Auto) Lymph # Seg Neutrophils % Monocytes % (Manual) 11.0 H Seg Neutrophils # POC ABG pO2 Potassium Chloride Carbon Dioxide BUN Creatinine Glucose POC Glucose 121 H Calcium Magnesium AST ALT Alkaline Phosphatase CK-MB (CK-2) Rel Index Troponin T NT-Pro-B Natriuret Pep Total Protein Albumin HDL Cholesterol Acetaminophen < 5.0 L 01/22/19 01/23/19 01/23/19 Unknown 01:26 03:48 WBC RBC Hgb Hct MCH RDW Plt Count Lymph % (Auto) [place] % (Auto) Lymph # Seg Neutrophils % Monocytes % (Manual) Seg Neutrophils # POC ABG pO2 138 H Potassium Chloride 96.2 L Carbon Dioxide BUN 20 H Creatinine 2.4 H Glucose 150 H POC Glucose 108 H Calcium Magnesium AST 109 H ALT 63 H Alkaline Phosphatase 227 H CK-MB (CK-2) Rel Index Troponin T 0.133 H* NT-Pro-B Natriuret Pep Total Protein Albumin 3.8 L HDL Cholesterol 62 H Acetaminophen 01/23/19 01/23/19 01/23/19 04:29 04:29 17:11 WBC RBC 3.27 L Hgb 8.8 L Hct 26.8 L D MCH 27 L RDW 17.5 H Plt Count 100 L Lymph % (Auto) 9.1 L [place] % (Auto) 11.4 H Lymph # 0.4 L Seg Neutrophils % 78.3 H Monocytes % (Manual) Seg Neutrophils # POC ABG pO2 Potassium 3.0 L D Chloride 109.2 H Carbon Dioxide 18 L D BUN 23 H Creatinine 2.6 H Glucose POC Glucose 63 L Calcium 6.4 L D Magnesium 1.50 L AST ALT Alkaline Phosphatase CK-MB (CK-2) Rel Index Troponin T NT-Pro-B Natriuret Pep 95021 H Total Protein 4.7 L D Albumin 2.2 L HDL Cholesterol Acetaminophen 01/23/19 01/24/19 01/24/19 19:49 02:06 03:20 WBC RBC Hgb Hct MCH RDW Plt Count Lymph % (Auto) [place] % (Auto) Lymph # Seg Neutrophils % Monocytes % (Manual) Seg Neutrophils # POC ABG pO2 113 H 114 H Potassium Chloride Carbon Dioxide BUN Creatinine Glucose POC Glucose 173 H Calcium Magnesium AST ALT Alkaline Phosphatase CK-MB (CK-2) Rel Index Troponin T NT-Pro-B Natriuret Pep Total Protein Albumin HDL Cholesterol Acetaminophen 01/24/19 01/24/19 01/24/19 05:25 05:40 05:40 WBC RBC Hgb Hct MCH 26 L RDW 18.3 H Plt Count 109 L Lymph % (Auto) [place] % (Auto) Lymph # Seg Neutrophils % Monocytes % (Manual) Seg Neutrophils # POC ABG pO2 Potassium Chloride Carbon Dioxide BUN 37 H Creatinine 3.9 H Glucose 142 H POC Glucose 150 H Calcium 8.2 L D Magnesium 2.70 H AST ALT Alkaline Phosphatase CK-MB (CK-2) Rel Index Troponin T NT-Pro-B Natriuret Pep Total Protein Albumin HDL Cholesterol Acetaminophen 01/24/19 01/24/19 01/24/19 11:34 17:32 23:36 WBC RBC Hgb Hct MCH RDW Plt Count Lymph % (Auto) [place] % (Auto) Lymph # Seg Neutrophils % Monocytes % (Manual) Seg Neutrophils # POC ABG pO2 Potassium Chloride Carbon Dioxide BUN Creatinine Glucose POC Glucose 143 H 174 H 106 H Calcium Magnesium AST ALT Alkaline Phosphatase CK-MB (CK-2) Rel Index Troponin T NT-Pro-B Natriuret Pep Total Protein Albumin HDL Cholesterol Acetaminophen 01/25/19 01/25/19 01/25/19 05:21 05:22 05:22 WBC 13.2 H RBC Hgb Hct MCH 26 L RDW 17.7 H Plt Count 120 L Lymph % (Auto) 3.3 L [place] % (Auto) Lymph # 0.4 L Seg Neutrophils % 90.0 H Monocytes % (Manual) Seg Neutrophils # 11.8 H POC ABG pO2 Potassium Chloride 95.7 L Carbon Dioxide BUN 21 H Creatinine 3.2 H Glucose 112 H POC Glucose 111 H Calcium 8.0 L Magnesium AST ALT Alkaline Phosphatase 131 H CK-MB (CK-2) Rel Index Troponin T NT-Pro-B Natriuret Pep Total Protein Albumin 3.0 L HDL Cholesterol Acetaminophen 01/25/19 01/25/19 01/25/19 11:53 12:14 17:26 WBC RBC Hgb Hct MCH RDW Plt Count Lymph % (Auto) [place] % (Auto) Lymph # Seg Neutrophils % Monocytes % (Manual) Seg Neutrophils # POC ABG pO2 110 H Potassium Chloride Carbon Dioxide BUN Creatinine Glucose POC Glucose 113 H 109 H Calcium Magnesium AST ALT Alkaline Phosphatase CK-MB (CK-2) Rel Index Troponin T NT-Pro-B Natriuret Pep Total Protein Albumin HDL Cholesterol Acetaminophen 01/25/19 01/26/19 01/26/19 23:50 12:32 13:15 WBC RBC Hgb Hct MCH RDW Plt Count Lymph % (Auto) [place] % (Auto) Lymph # Seg Neutrophils % Monocytes % (Manual) Seg Neutrophils # POC ABG pO2 Potassium Chloride Carbon Dioxide BUN Creatinine Glucose POC Glucose 254 H 138 H Calcium Magnesium AST ALT Alkaline Phosphatase CK-MB (CK-2) Rel Index 4.3 H Troponin T 0.227 H* D NT-Pro-B Natriuret Pep Total Protein Albumin HDL Cholesterol Acetaminophen 01/26/19 21:07 WBC RBC Hgb Hct MCH RDW Plt Count Lymph % (Auto) [place] % (Auto) Lymph # Seg Neutrophils % Monocytes % (Manual) Seg Neutrophils # POC ABG pO2 Potassium Chloride Carbon Dioxide BUN Creatinine Glucose POC Glucose 218 H Calcium Magnesium AST ALT Alkaline Phosphatase CK-MB (CK-2) Rel Index Troponin T NT-Pro-B Natriuret Pep Total Protein Albumin HDL Cholesterol Acetaminophen Chest x-ray: image reviewed Allied health notes reviewed: nursing
[2019-01-27] MEDS: HumaLOG SUB-Q SCH ×4 (09:37→22:44)
[2019-01-27] MEDS: PLAVIX PO SCH (10:03)
[2019-01-27] MEDS: PEPCID PO SCH (10:03)
[2019-01-27] MEDS: HALFPRIN EC PO SCH (10:04)
[2019-01-27] MEDS: FERROUS SULFATE FEEDTUBE SCH (10:04)
[2019-01-27] MEDS: SODIUM CHLORIDE FLUSH SYRINGE 10 ML IV SCH ×2 (10:16→22:44)
--- NOTE | 2019-01-27 10:26 | Progress Note ---
Assessment and Plan Out of the hospital cardiac arrest no strips available for cardiac review End stage renal disease on dialysis Dilated nonischemic cardiomyopathy EF 10-15% 12/2018 noncompliant with outpatient lifevest Coronary artery disease status post PCI of the proximal LAD using a BMS done December 2017. Hx of PAD Chronic hypertesnion Hyperlipidemia Diabetes Recommendations; Dialysis for fluid management. Medical therapy for nonischemic cardiomyopathy and coronary artery disease as tolerated. Otherwise, conservative cardiac management. On discharge, continue life vest monitoring. Subjective Date of service: 01/27/19 Principal diagnosis: Acute hypoxemic resp failure; S/P cardiac arrest; ESRD on dialysis; DM II Interval history: Patient is resting in bed and has no complaints. She denies chest pain and shortness of breath. Objective Vital Signs Temp Pulse Pulse Pulse Resp BP BP 01/27/19 07:44 98.2 F 18 122/59 01/27/19 04:40 98.4 F 103 H 18 115/58 01/27/19 04:00 103 H 01/27/19 00:00 85 01/26/19 23:20 97.9 F 85 18 96/46 01/26/19 21:23 01/26/19 21:00 87 18 L 01/26/19 20:00 88 01/26/19 19:48 97.2 F L 90 16 117/58 01/26/19 17:22 97.5 F L 86 24 113/61 01/26/19 16:41 93 H 18 121/61 01/26/19 16:31 91 H 16 121/61 01/26/19 16:21 91 H 13 120/63 01/26/19 16:11 89 22 110/57 01/26/19 16:00 91 H 13 110/57 01/26/19 15:51 84 16 106/54 01/26/19 15:41 81 14 106/60 01/26/19 15:30 84 16 106/60 01/26/19 15:21 83 14 114/61 01/26/19 15:11 87 14 105/59 01/26/19 15:00 87 87 14 105/59 01/26/19 14:51 86 12 96/54 01/26/19 14:41 89 14 115/59 01/26/19 14:30 89 15 115/59 01/26/19 14:21 88 14 104/51 01/26/19 14:11 83 14 99/51 01/26/19 14:00 82 14 99/51 01/26/19 13:51 82 14 142/71 01/26/19 13:50 98.1 F 92 H 13 129/66 01/26/19 13:41 85 14 142/71 01/26/19 13:30 92 H 12 120/66 01/26/19 13:21 88 14 129/66 01/26/19 13:15 89 129/66 01/26/19 13:11 87 15 125/65 01/26/19 13:00 86 15 125/65 01/26/19 12:51 86 16 125/64 01/26/19 12:45 87 125/84 01/26/19 12:41 91 H 16 136/68 01/26/19 12:37 90 01/26/19 12:30 91 H 20 136/68 01/26/19 12:21 92 H 13 128/65 01/26/19 12:15 92 H 128/65 01/26/19 12:11 92 H 13 114/64 01/26/19 12:00 98.4 F 91 H 18 123/69 01/26/19 11:51 93 H 17 128/66 01/26/19 11:45 90 128/66 01/26/19 11:41 91 H 20 125/68 01/26/19 11:31 92 H 125/68 01/26/19 11:30 91 H 17 125/68 01/26/19 11:21 89 15 121/65 01/26/19 11:15 90 121/65 01/26/19 11:11 90 19 118/64 01/26/19 11:00 90 19 118/64 01/26/19 10:51 89 18 125/64 01/26/19 10:45 91 H 125/64 01/26/19 10:41 91 H 17 128/59 01/26/19 10:31 89 16 128/59 01/26/19 10:30 89 128/59 Pulse Ox Pulse Ox 01/27/19 07:44 01/27/19 04:40 94 01/27/19 04:00 01/27/19 00:00 01/26/19 23:20 93 01/26/19 21:23 100 01/26/19 21:00 100 01/26/19 20:00 01/26/19 19:48 98 01/26/19 17:22 97 01/26/19 16:41 01/26/19 16:31 01/26/19 16:21 01/26/19 16:11 01/26/19 16:00 99 01/26/19 15:51 01/26/19 15:41 01/26/19 15:30 01/26/19 15:21 01/26/19 15:11 100 01/26/19 15:00 100 01/26/19 14:51 100 01/26/19 14:41 100 01/26/19 14:30 99 01/26/19 14:21 100 01/26/19 14:11 100 01/26/19 14:00 100 01/26/19 13:51 100 01/26/19 13:50 100 01/26/19 13:41 100 01/26/19 13:30 100 01/26/19 13:21 100 01/26/19 13:15 01/26/19 13:11 100 01/26/19 13:00 100 01/26/19 12:51 100 01/26/19 12:45 01/26/19 12:41 100 01/26/19 12:37 01/26/19 12:30 100 01/26/19 12:21 98 01/26/19 12:15 01/26/19 12:11 97 01/26/19 12:00 100 01/26/19 11:51 98 01/26/19 11:45 01/26/19 11:41 98 01/26/19 11:31 01/26/19 11:30 98 01/26/19 11:21 98 01/26/19 11:15 01/26/19 11:11 99 01/26/19 11:00 100 01/26/19 10:51 99 01/26/19 10:45 01/26/19 10:41 100 01/26/19 10:31 100 01/26/19 10:30 - Physical Examination General: No Apparent Distress HEENT: Positive: PERRL Neck: Positive: neck supple Cardiac: Positive: Reg Rate and Rhythm Lungs: Positive: Decreased Breath Sounds Neuro: Positive: Weakness Abdomen: Positive: Soft Extremities: Absent: edema (left transmetatarsal amputation) - Labs and Meds Cardiac Enzymes 01/26/19 Range/Units 13:15 CK-MB (CK-2) 1.8 (0.0-4.0) ng/mL - Allied health notes Allied health notes reviewed: nursing
--- NOTE | 2019-01-27 16:47 | Progress Note ---
Assessment and Plan Assessment and plan: -- Acute respiratory failure with hypoxia; requiring intubation Extubated yesterday , nasal cannula oxygen Continue current management Pulmonary following VAP AND Aspiration precaution Bundle -Nebs, scheduled and PRN -- Pneumonia; probable community-acquired Pneumonia protocol, IV antibiotic, follow blood cultures, Oxygen titrate O2 sats to more than 90% -- s/p Cardiac arrest S/P ACLS with return of perfusing rhythm, Cardiology following, Cardiac cah prior to discharge --Mild encephalopathy/probably hypoxic supportive care, CT head without contrast, EEG Neurology consult, supportive care --Non-ST elevation NE continue cardiac medications, heart cath prior to discharge --Dialated CMP; 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 -- Diabetes ADA diet, when/if awake alert, insulin, accu check,hypoglycemia protocol -- Pulmonary hypertension supportive care, continue current care, wean vent as tolerated, -- Hypokalemia REPLACE per protocol -- Anemia of chronic renal disease Monitor and transfuse as needed -- PVD: Continue current management -- DVT prophylaxis SCD to BLE while in bed, prophylactic heparin Physical therapy, follow neuro consult and recommendations Possible discharge in 1-2 days with home health versus a rehabilitation Plan of care reviewed with the patient and her nurse and case management History Interval history: Patient seen and examined medical records reviewed A new events reported by the nursing staff Patient saturating well on nasal cannula oxygen Denies chest pain denies shortness of breath Vital signs normal Hospitalist Physical - Constitutional Vitals: Temp Pulse Resp BP Pulse Ox 98.2 F 103 H 18 122/59 98 01/27/19 07:44 01/27/19 04:40 01/27/19 07:44 01/27/19 07:44 01/27/19 13:45 General appearance: Present: no acute distress, well-nourished - EENT Eyes: Present: PERRL, EOM intact - Neck Neck: Present: supple, normal ROM - Respiratory Respiratory effort: normal Respiratory: bilateral: diminished, rhonchi, negative: rales, wheezing - Extremities Extremities: no ischemia, No edema - Abdominal General gastrointestinal: soft, tender, normal bowel sounds - Integumentary Integumentary: Present: clear, warm - Psychiatric Psychiatric: appropriate mood/affect, cooperative - Neurologic Neurologic: moves all extremities Results - Labs CBC & Chem 7: 01/25/19 05:22 01/25/19 05:22 Labs: Laboratory Last Values WBC 13.2 K/mm3 (4.5-11.0) H 01/25/19 05:22 RBC 3.90 M/mm3 (3.65-5.03) 01/25/19 05:22 Hgb 10.3 gm/dl (10.1-14.3) 01/25/19 05:22 Hct 31.6 % (30.3-42.9) 01/25/19 05:22 MCV 81 fl (79-97) 01/25/19 05:22 MCH 26 pg (28-32) L 01/25/19 05:22 MCHC 33 % (30-34) 01/25/19 05:22 RDW 17.7 % (13.2-15.2) H 01/25/19 05:22 Plt Count 120 K/mm3 (140-440) L 01/25/19 05:22 Lymph % (Auto) 3.3 % (13.4-35.0) L 01/25/19 05:22 [place] % (Auto) 6.2 % (0.0-7.3) 01/25/19 05:22 Eos % (Auto) 0.0 % (0.0-4.3) 01/25/19 05:22 Baso % (Auto) 0.5 % (0.0-1.8) 01/25/19 05:22 Lymph # 0.4 K/mm3 (1.2-5.4) L 01/25/19 05:22 [place] # 0.8 K/mm3 (0.0-0.8) 01/25/19 05:22 Eos # 0.0 K/mm3 (0.0-0.4) 01/25/19 05:22 Baso # 0.1 K/mm3 (0.0-0.1) 01/25/19 05:22 Add Manual Diff Complete 01/22/19 Unknown Total Counted 100 01/22/19 Unknown Seg Neutrophils % 90.0 % (40.0-70.0) H 01/25/19 05:22 Seg Neuts % (Manual) 60.0 % (40.0-70.0) 01/22/19 Unknown 1.0 % 01/22/19 Unknown 25.0 % (13.4-35.0) 01/22/19 Unknown Reactive Lymphs % (Man) 0 % 01/22/19 Unknown 11.0 % (0.0-7.3) H 01/22/19 Unknown 0 % (0.0-4.3) 01/22/19 Unknown 0 % (0.0-1.8) 01/22/19 Unknown 3.0 % 01/22/19 Unknown 0 % 01/22/19 Unknown 0 % 01/22/19 Unknown 0 % 01/22/19 Unknown Nucleated RBC % Not Reportable 01/22/19 Unknown Seg Neutrophils # 11.8 K/mm3 (1.8-7.7) H 01/25/19 05:22 Seg Neutrophils # Man 4.3 K/mm3 (1.8-7.7) 01/22/19 Unknown Band Neutrophils # 0.1 K/mm3 01/22/19 Unknown 1.8 K/mm3 (1.2-5.4) 01/22/19 Unknown Abs React Lymphs (Man) 0.0 K/mm3 01/22/19 Unknown 0.8 K/mm3 (0.0-0.8) 01/22/19 Unknown 0.0 K/mm3 (0.0-0.4) 01/22/19 Unknown 0.0 K/mm3 (0.0-0.1) 01/22/19 Unknown 0.2 K/mm3 01/22/19 Unknown 0.0 K/mm3 01/22/19 Unknown 0.0 K/mm3 01/22/19 Unknown Blast Cells # 0.0 K/mm3 01/22/19 Unknown WBC Morphology Not Reportable 01/22/19 Unknown Hypersegmented Neuts Not Reportable 01/22/19 Unknown Hyposegmented Neuts Not Reportable 01/22/19 Unknown Hypogranular Neuts Not Reportable 01/22/19 Unknown Not Reportable 01/22/19 Unknown Not Reportable 01/22/19 Unknown Not Reportable 01/22/19 Unknown Not Reportable 01/22/19 Unknown Not Reportable 01/22/19 Unknown Not Reportable 01/22/19 Unknown Consistent w auto 01/22/19 Unknown Not Reportable 01/22/19 Unknown Plt Clumps, EDTA Not Reportable 01/22/19 Unknown Few 01/22/19 Unknown Not Reportable 01/22/19 Unknown Not Reportable 01/22/19 Unknown Plt Morphology Comment Not Reportable 01/22/19 Unknown RBC Morphology Not Reportable 01/22/19 Unknown Dimorphic RBCs Not Reportable 01/22/19 Unknown Not Reportable 01/22/19 Unknown Not Reportable 01/22/19 Unknown Not Reportable 01/22/19 Unknown Not Reportable 01/22/19 Unknown Not Reportable 01/22/19 Unknown Not Reportable 01/22/19 Unknown Not Reportable 01/22/19 Unknown Not Reportable 01/22/19 Unknown Not Reportable 01/22/19 Unknown Not Reportable 01/22/19 Unknown Few 01/22/19 Unknown Not Reportable 01/22/19 Unknown Not Reportable 01/22/19 Unknown Not Reportable 01/22/19 Unknown Not Reportable 01/22/19 Unknown Not Reportable 01/22/19 Unknown Not Reportable 01/22/19 Unknown Not Reportable 01/22/19 Unknown Few 01/22/19 Unknown Acanthocytes (Spur) Not Reportable 01/22/19 Unknown Rouleaux Not Reportable 01/22/19 Unknown Not Reportable 01/22/19 Unknown Rare 01/22/19 Unknown Not Reportable 01/22/19 Unknown Not Reportable 01/22/19 Unknown Hem Pathologist Commnt No 01/22/19 Unknown POC ABG pH 7.450 (7.35-7.45) 01/25/19 12:14 POC ABG pCO2 37.3 (35-45) 01/25/19 12:14 POC ABG pO2 110 (80-105) H 01/25/19 12:14 POC ABG HCO3 25.9 (22-26 mml/L) 01/25/19 12:14 POC ABG Total CO2 27 (23-27mmol/L) 01/25/19 12:14 POC ABG O2 Sat 99 01/25/19 12:14 POC ABG Base Excess 2 ((-2) - (+3)mmol/L) 01/25/19 12:14 30 % 01/25/19 12:14 Sodium 137 mmol/L (137-145) 01/25/19 05:22 Potassium 4.0 mmol/L (3.6-5.0) 01/25/19 05:22 Chloride 95.7 mmol/L (98-107) L 01/25/19 05:22 Carbon Dioxide 26 mmol/L (22-30) 01/25/19 05:22 19 mmol/L 01/25/19 05:22 BUN 21 mg/dL (7-17) H 01/25/19 05:22 3.2 mg/dL (0.7-1.2) H 01/25/19 05:22 Estimated GFR 17 ml/min 01/25/19 05:22 7 % 01/25/19 05:22 Glucose 112 mg/dL (65-100) H 01/25/19 05:22 POC Glucose 211 (70-105) H 01/27/19 12:16 Lactic Acid 1.70 mmol/L (0.7-2.0) 01/22/19 15:35 Calcium 8.0 mg/dL (8.4-10.2) L 01/25/19 05:22 Magnesium 2.00 mg/dL (1.7-2.3) 01/25/19 05:22 0.60 mg/dL (0.1-1.2) 01/25/19 05:22 AST 12 units/L (5-40) 01/25/19 05:22 ALT 15 units/L (7-56) 01/25/19 05:22 131 units/L (35-129) H 01/25/19 05:22 41 units/L (30-135) 01/26/19 13:15 CK-MB (CK-2) 1.8 ng/mL (0.0-4.0) 01/26/19 13:15 CK-MB (CK-2) Rel Index 4.3 (0-4) H 01/26/19 13:15 0.227 ng/mL (0.00-0.029) H* D 01/26/19 13:15 1.30 mg/dL (0.00-1.30) 01/22/19 15:35 NT-Pro-B Natriuret Pep 34178 pg/mL (0-900) H 01/23/19 04:29 6.7 g/dL (6.3-8.2) D 01/25/19 05:22 3.0 g/dL (3.9-5) L 01/25/19 05:22 0.8 % 01/25/19 05:22 Triglycerides 111 mg/dL (2-149) 01/22/19 Unknown Cholesterol 153 mg/dL (50-199) 01/22/19 Unknown 79 mg/dL (50-130) 01/22/19 Unknown 62 mg/dL (40-59) H 01/22/19 Unknown 2.46 % 01/22/19 Unknown Random Vancomycin 9.3 ug/mL (0-40.0) 01/25/19 05:22 Acetaminophen < 5.0 ug/mL (10.0-30.0) L 01/22/19 15:35 Hepatitis A IgM Ab Non-reactive (NonReactive) 01/22/19 15:35 Hep Bs Antigen Non-reactive (Negative) 01/22/19 15:35 Hep B Core IgM Ab Non-reactive (NonReactive) 01/22/19 15:35 Non-reactive (NonReactive) 01/22/19 15:35 Blood Type B POSITIVE 01/22/19 11:53 WOODY Antibody Screen Negative 01/22/19 11:53 Active Medications - Current Medications Current Medications: Generic Name Dose Route Start Last Admin Trade Name Freq PRN Reason Stop Dose Admin Albuterol 2.5 mg 01/22/19 12:23 01/25/19 12:40 Proventil IH 2.5 mg Q3H PRN Administration Shortness Of Breath Aspirin 81 mg 01/23/19 10:00 01/27/19 10:04 Halfprin Ec PO 81 mg QDAY LUCIO Administration Clopidogrel Bisulfate 75 mg 01/23/19 10:00 01/27/19 10:03 Plavix PO 75 mg QDAY LUCIO Administration Dextrose 50 ml 01/23/19 06:43 D50w (25gm) Syringe IV PRN PRN Hypoglycemia Enoxaparin Sodium 30 mg 01/24/19 22:00 01/26/19 22:40 Lovenox SUB-Q 30 mg QDAY@2200 LUCIO Administration Epoetin Gilberto 10,000 unit 01/26/19 12:54 01/26/19 12:57 Procrit SUB-Q 10,000 unit ALHAJI LUCIO Administration Famotidine 20 mg 01/24/19 10:00 01/27/19 10:03 Pepcid PO 20 mg DAILY LUCIO Administration Ferrous Sulfate 308 mg 01/24/19 10:00 01/27/19 10:04 Ferrous Sulfate FEEDTUBE 308 mg DAILY LUCIO Administration Hydrophilic Ointment 1 applic 01/22/19 09:33 Vaseline Lip Therapy TP Q2HR PRN Dry Lips Sodium Chloride 100 mls @ 999 mls/hr 01/24/19 16:49 Nacl 0.9% IV ALHAJI PRN Hypotension Insulin Human Lispro 0 unit 01/26/19 11:30 01/27/19 12:45 Humalog SUB-Q Not Given ACHS [facility] Protocol Morphine Sulfate 1 mg 01/26/19 12:06 01/27/19 16:19 Morphine IV 1 mg Q4H PRN Administration Pain, Moderate (4-6) Multi-Ingred Cream/Lotion/Oil/Oint 1 applic 01/22/19 09:33 Artificial Tears Ophth Oint OU Q4HR PRN Dry Eye(s) Pravastatin Sodium 20 mg 01/22/19 22:00 01/26/19 22:41 Pravachol PO 20 mg QHS LUCIO Administration Sodium Chloride 10 ml 01/22/19 22:00 01/27/19 10:16 Sodium Chloride Flush Syringe 10 Ml IV 10 ml BID LUCIO Administration Sodium Chloride 10 ml 01/22/19 12:23 01/26/19 12:20 Sodium Chloride Flush Syringe 10 Ml IV 10 ml PRN PRN Administration LINE FLUSH Nutrition/Malnutrition Assess - Dietary Evaluation Nutrition/Malnutrition Findings: Nutrition Notes Start: 01/23/19 10:56 Freq: Status: Active Protocol: Document 01/27/19 15:27 RM (Rec: 01/27/19 15:33 RM [id number]) Nutrition Notes Initial or Follow up Reassessment Current Diagnosis Decubitus(Pressure Ulcer), Diabetes,Hypertension,Stroke Other Pertinent Diagnosis ESRD on HD (T/R/Sa), PVD, Pneu , R & L foot wounds Current Diet Renal Labs/Tests Reviewed Pertinent Medications Reviewed Height 5 ft 6 in Weight 58.7 kg [place] Body Weight (kg) 59.09 BMI 20.9 Subjective/Other Information Pt moved from ICU to floor. Pt not in room at time of visit. Per tech pt has been eating 100% of her meals. Percent of energy/protein needs met: 100%/100% Burn Absent Trauma Absent #1 Nutrition Diagnosis Inadequate oral intake As Evidenced by Signs and Symptoms pt meeting 100% of calorie and protein needs Diagnosis Progress(for reassessment Resolved documentation) Is patient on ventilator? No Is Patient Ambulatory and/or Out of Bed No REE-([facility]-confined to bed) 1307.280 Calculation Used for Recommendations [facility] Additional Notes Protein Needs: 70-76g (1.2-1. 3g/kg) Fluid Needs: 1 ml/kcal Nutrition Intervention Change Diet Order: Continue current Goal #1 Continue to meet at least 75% of calorie and protein needs via PO intakes Anticipated Discharge Needs: Renal diet Follow-Up By: 02/05/19 Additional Comments Follow for stable intakes
--- NOTE | 2019-01-27 17:07 | Progress Note ---
Assessment and Plan - Patient Problems (1) ESRD needing dialysis Current Visit: Yes Status: Acute Plan to address problem: cont maintenance HD on MWF schedule while inpatient (2) Cardiac arrest Current Visit: Yes Status: Acute Plan to address problem: s/p ALCS with return of spontaneous circulation, currently off vasopressors. follow cardiology recommendations. (3) Acute respiratory failure Current Visit: Yes Status: Acute Qualifiers: Respiratory failure complication: unspecified whether with hypoxia or hypercapnia Qualified Code(s): J96.00 - Acute respiratory failure, unspecified whether with hypoxia or hypercapnia Plan to address problem: s/p extubation (4) HTN (hypertension) Current Visit: Yes Status: Acute Qualifiers: Hypertension type: essential hypertension Qualified Code(s): I10 - Essential (primary) hypertension Plan to address problem: off antihypertensives s/p cardiac arrest. (5) Pneumonia Current Visit: Yes Status: Acute Qualifiers: Pneumonia type: due to unspecified organism Laterality: bilateral Lung location: upper lobe of lung Qualified Code(s): J18.1 - Lobar pneumonia, unspecified organism Plan to address problem: started on empiric ABXs, dose all meds for HD (6) Anemia Current Visit: No Status: Acute Qualifiers: Anemia type: unspecified type Qualified Code(s): D64.9 - Anemia, unspecified Plan to address problem: cont EPO with HD Subjective Date of service: 01/27/19 Principal diagnosis: Acute hypoxemic resp failure; S/P cardiac arrest; ESRD on dialysis; DM II Interval history: Pt is awake, alert, oriented to person and place, not to date. in no acute respiratory distress. Objective - Vital Signs Vital signs: Vital Signs - 12hr 01/27/19 01/27/19 07:44 13:45 Temperature 98.2 F Respiratory 18 Rate Blood Pressure 122/59 O2 Sat by Pulse 98 Oximetry - General Appearance General appearance: well-developed, appears stated age, chronically ill EENT: ATNC, PERRL, mucous membranes moist Neck: no JVD Respiratory: Present: Clear to Ascultation Cardiology: regular, S1S2 Gastrointestinal: normoactive bowel sounds Integumentary: no rash, other (no edema ) Neurologic: no focal deficit, disoriented, strength 5/5, CN 3-12 intact Psychiatric: mood/affect appropriate, cooperative - Lab 01/25/19 05:22 01/25/19 05:22 Most recent lab results Calcium 8.0 mg/dL (8.4-10.2) L 01/25/19 05:22 Magnesium 2.00 mg/dL (1.7-2.3) 01/25/19 05:22 Medications & Allergies - Medications Allergies/Adverse Reactions: Allergies phenytoin sodium [From Dilantin] Allergy (Verified 05/08/16 07:07) Anaphylaxis phenytoin sodium extended [From Dilantin] Allergy (Verified 05/08/16 07:07) Anaphylaxis Home Medications: Home Medications Medication Instructions Recorded Confirmed Last Taken Type Ferrous Sulfate [Iron 325 MG] 325 mg PO DAILY 01/04/19 01/22/19 01/03/19 History Aspirin EC 81 mg PO QDAY #30 tablet. 01/07/19 01/22/19 Unknown Rx Clopidogrel [Plavix] 75 mg PO QDAY #30 tablet 01/07/19 01/22/19 Unknown Rx Losartan [Cozaar] 100 mg PO DAILY 30 Days #30 tablet 01/07/19 01/22/19 Unknown Rx Metoprolol [Lopressor TAB] 50 mg PO BID #60 tablet 01/07/19 01/22/19 Unknown Rx Pravastatin [Pravachol] 20 mg PO QHS #30 tablet 01/07/19 01/22/19 Unknown Rx Active Medications: Generic Name Dose Route Start Last Admin Trade Name Freq PRN Reason Stop Dose Admin Albuterol 2.5 mg 01/22/19 12:23 01/25/19 12:40 Proventil IH 2.5 mg Q3H PRN Administration Shortness Of Breath Aspirin 81 mg 01/23/19 10:00 01/27/19 10:04 Halfprin Ec PO 81 mg QDAY LUCIO Administration Clopidogrel Bisulfate 75 mg 01/23/19 10:00 01/27/19 10:03 Plavix PO 75 mg QDAY LUCIO Administration Dextrose 50 ml 01/23/19 06:43 D50w (25gm) Syringe IV PRN PRN Hypoglycemia Enoxaparin Sodium 30 mg 01/24/19 22:00 01/26/19 22:40 Lovenox SUB-Q 30 mg QDAY@2200 LUCIO Administration Epoetin Gilberto 10,000 unit 01/26/19 12:54 01/26/19 12:57 Procrit SUB-Q 10,000 unit ALHAJI LUCIO Administration Famotidine 20 mg 01/24/19 10:00 01/27/19 10:03 Pepcid PO 20 mg DAILY LUCIO Administration Ferrous Sulfate 308 mg 01/24/19 10:00 01/27/19 10:04 Ferrous Sulfate FEEDTUBE 308 mg DAILY LUCIO Administration Hydrophilic Ointment 1 applic 01/22/19 09:33 Vaseline Lip Therapy TP Q2HR PRN Dry Lips Sodium Chloride 100 mls @ 999 mls/hr 01/24/19 16:49 Nacl 0.9% IV ALHAJI PRN Hypotension Insulin Human Lispro 0 unit 01/26/19 11:30 01/27/19 12:45 Humalog SUB-Q Not Given ACHS COUNTS INCLUDE 234 BEDS AT THE [facility] Protocol Morphine Sulfate 1 mg 01/26/19 12:06 01/27/19 16:19 Morphine IV 1 mg Q4H PRN Administration Pain, Moderate (4-6) Multi-Ingred Cream/Lotion/Oil/Oint 1 applic 01/22/19 09:33 Artificial Tears Ophth Oint OU Q4HR PRN Dry Eye(s) Pravastatin Sodium 20 mg 01/22/19 22:00 01/26/19 22:41 Pravachol PO 20 mg QHS LUCIO Administration Sodium Chloride 10 ml 01/22/19 22:00 01/27/19 10:16 Sodium Chloride Flush Syringe 10 Ml IV 10 ml BID LUCIO Administration Sodium Chloride 10 ml 01/22/19 12:23 01/26/19 12:20 Sodium Chloride Flush Syringe 10 Ml IV 10 ml PRN PRN Administration LINE FLUSH
[2019-01-27] MEDS: LOVENOX SUB-Q SCH (22:43)
[2019-01-27] MEDS: PRAVACHOL PO SCH (22:43)
--- NOTE | 2019-01-28 07:43 | Progress Note ---
Assessment and Plan Acute hypoxemic respiratory failure, S/P mechanical ventilatory support. Status post cardiac arrest with return of spontaneous circulation. Dilated nonischemic cardiomyopathy EF 10-15% 12/2018 End-stage renal disease, on dialysis. Diabetes type 2. Hypertension. History of cerebrovascular accident. Peripheral vascular disease. History of pulmonary hypertension -wean supplemental oxygen to keep O2 sats >90% - continue VTE prophylaxis - continue HD/UF for toxin and volume clearance - Life vest with cardioprotective measures - Monitor renal indices closely - Avoid nephrotoxic agents, adjust all medications for CrCL -PT/OT/Mobility, increase activity - continue accuchecks with glycemic control per SSI for target glucose of 140- 180 mg/dL - Maintenance of sleep -wake cycle - Influenza and pneumonia vaccination per protocol - discharge planning , stable from pulmonary standpoint for discharge planning Subjective Date of service: 01/28/19 Principal diagnosis: Acute hypoxemic resp failure; S/P cardiac arrest; ESRD on dialysis; DM II Interval history: Patient is seen today for: Acute hypoxemic resp failure s/p MVS; S/P cardiac arrest with ROSC; ESRD on dialysis; DM II; HTN; H/O CVA; PVD; H/O pulmonary hypertension. Seen and examined at bedside; 24hour events reviewed, vitals, labs, medications, chart reviewed; nursing and respiratory care staff consulted; no adverse ove rnight events reported to me; not requiring supplemental oxygen; no N/V/F/C, awake and alert, denies any chest pain or shortness of breath. No fevers or nausea, no diarrhea, no vomiting. Objective Vital Signs - 12hr 01/27/19 01/27/19 01/27/19 19:45 20:00 22:00 Temperature 97.8 F Pulse Rate 86 87 Pulse Rate [ 86 From Monitor] Pulse Rate [ 86 Left Dorsalis Pedis] Pulse Rate [ 18 L Right Dorsalis Pedis] Respiratory 18 Rate Blood Pressure 117/57 O2 Sat by Pulse 94 98 Oximetry 01/27/19 01/28/19 01/28/19 23:03 00:00 03:44 Temperature 98.6 F 98.5 F Pulse Rate 87 87 87 Pulse Rate [ From Monitor] Pulse Rate [ Left Dorsalis Pedis] Pulse Rate [ Right Dorsalis Pedis] Respiratory 18 18 Rate Blood Pressure 127/61 127/61 O2 Sat by Pulse 97 100 Oximetry 01/28/19 04:00 Temperature Pulse Rate 87 Pulse Rate [ From Monitor] Pulse Rate [ Left Dorsalis Pedis] Pulse Rate [ Right Dorsalis Pedis] Respiratory Rate Blood Pressure O2 Sat by Pulse Oximetry Constitutional: no acute distress, alert, other (elderly looking AAF, normocephalic resting in bed ) Eyes: non-icteric ENT: oropharynx moist Neck: supple, no lymphadenopathy, no JVD, other (no thyromegaly) Effort: normal Ascultation: Bilateral: diminished breath sounds, rhonchi Percussion: Bilateral: not dull Cardiovascular: regular rate and rhythm, murmur noted (systolic), other (S1,S2) Gastrointestinal: normoactive bowel sounds, soft, non-tender, non-distended Integumentary: rash Extremities: no cyanosis, no edema, pulses normal, no ischemia or petechiae Neurologic: normal mental status, non-focal exam, pupils equal and round, CN II- XII normal, motor strength normal and Psychiatric: mood appropriate, affect normal CBC and BMP: 01/25/19 05:22 01/25/19 05:22 ABG, PT/INR, D-dimer: ABG POC ABG pH 7.450 (7.35-7.45) 01/25/19 12:14 POC ABG pCO2 37.3 (35-45) 01/25/19 12:14 POC ABG pO2 110 (80-105) H 01/25/19 12:14 POC ABG HCO3 25.9 (22-26 mml/L) 01/25/19 12:14 POC ABG Total CO2 27 (23-27mmol/L) 01/25/19 12:14 POC ABG O2 Sat 99 01/25/19 12:14 Abnormal lab findings: Abnormal Labs 01/22/19 01/22/19 01/22/19 09:27 11:09 15:07 WBC RBC Hgb Hct MCH RDW Plt Count Lymph % (Auto) [place] % (Auto) Lymph # Seg Neutrophils % Monocytes % (Manual) Seg Neutrophils # POC ABG pO2 207 H Potassium Chloride Carbon Dioxide BUN Creatinine Glucose POC Glucose 113 H 134 H Calcium Magnesium AST ALT Alkaline Phosphatase CK-MB (CK-2) Rel Index Troponin T NT-Pro-B Natriuret Pep Total Protein Albumin HDL Cholesterol Acetaminophen 01/22/19 01/22/19 01/22/19 15:35 17:40 Unknown WBC RBC Hgb Hct MCH 26 L RDW 17.3 H Plt Count Lymph % (Auto) [place] % (Auto) Lymph # Seg Neutrophils % Monocytes % (Manual) 11.0 H Seg Neutrophils # POC ABG pO2 Potassium Chloride Carbon Dioxide BUN Creatinine Glucose POC Glucose 121 H Calcium Magnesium AST ALT Alkaline Phosphatase CK-MB (CK-2) Rel Index Troponin T NT-Pro-B Natriuret Pep Total Protein Albumin HDL Cholesterol Acetaminophen < 5.0 L 01/22/19 01/23/19 01/23/19 Unknown 01:26 03:48 WBC RBC Hgb Hct MCH RDW Plt Count Lymph % (Auto) [place] % (Auto) Lymph # Seg Neutrophils % Monocytes % (Manual) Seg Neutrophils # POC ABG pO2 138 H Potassium Chloride 96.2 L Carbon Dioxide BUN 20 H Creatinine 2.4 H Glucose 150 H POC Glucose 108 H Calcium Magnesium AST 109 H ALT 63 H Alkaline Phosphatase 227 H CK-MB (CK-2) Rel Index Troponin T 0.133 H* NT-Pro-B Natriuret Pep Total Protein Albumin 3.8 L HDL Cholesterol 62 H Acetaminophen 01/23/19 01/23/19 01/23/19 04:29 04:29 17:11 WBC RBC 3.27 L Hgb 8.8 L Hct 26.8 L D MCH 27 L RDW 17.5 H Plt Count 100 L Lymph % (Auto) 9.1 L [place] % (Auto) 11.4 H Lymph # 0.4 L Seg Neutrophils % 78.3 H Monocytes % (Manual) Seg Neutrophils # POC ABG pO2 Potassium 3.0 L D Chloride 109.2 H Carbon Dioxide 18 L D BUN 23 H Creatinine 2.6 H Glucose POC Glucose 63 L Calcium 6.4 L D Magnesium 1.50 L AST ALT Alkaline Phosphatase CK-MB (CK-2) Rel Index Troponin T NT-Pro-B Natriuret Pep 37595 H Total Protein 4.7 L D Albumin 2.2 L HDL Cholesterol Acetaminophen 01/23/19 01/24/19 01/24/19 19:49 02:06 03:20 WBC RBC Hgb Hct MCH RDW Plt Count Lymph % (Auto) [place] % (Auto) Lymph # Seg Neutrophils % Monocytes % (Manual) Seg Neutrophils # POC ABG pO2 113 H 114 H Potassium Chloride Carbon Dioxide BUN Creatinine Glucose POC Glucose 173 H Calcium Magnesium AST ALT Alkaline Phosphatase CK-MB (CK-2) Rel Index Troponin T NT-Pro-B Natriuret Pep Total Protein Albumin HDL Cholesterol Acetaminophen 01/24/19 01/24/19 01/24/19 05:25 05:40 05:40 WBC RBC Hgb Hct MCH 26 L RDW 18.3 H Plt Count 109 L Lymph % (Auto) [place] % (Auto) Lymph # Seg Neutrophils % Monocytes % (Manual) Seg Neutrophils # POC ABG pO2 Potassium Chloride Carbon Dioxide BUN 37 H Creatinine 3.9 H Glucose 142 H POC Glucose 150 H Calcium 8.2 L D Magnesium 2.70 H AST ALT Alkaline Phosphatase CK-MB (CK-2) Rel Index Troponin T NT-Pro-B Natriuret Pep Total Protein Albumin HDL Cholesterol Acetaminophen 01/24/19 01/24/19 01/24/19 11:34 17:32 23:36 WBC RBC Hgb Hct MCH RDW Plt Count Lymph % (Auto) [place] % (Auto) Lymph # Seg Neutrophils % Monocytes % (Manual) Seg Neutrophils # POC ABG pO2 Potassium Chloride Carbon Dioxide BUN Creatinine Glucose POC Glucose 143 H 174 H 106 H Calcium Magnesium AST ALT Alkaline Phosphatase CK-MB (CK-2) Rel Index Troponin T NT-Pro-B Natriuret Pep Total Protein Albumin HDL Cholesterol Acetaminophen 01/25/19 01/25/19 01/25/19 05:21 05:22 05:22 WBC 13.2 H RBC Hgb Hct MCH 26 L RDW 17.7 H Plt Count 120 L Lymph % (Auto) 3.3 L [place] % (Auto) Lymph # 0.4 L Seg Neutrophils % 90.0 H Monocytes % (Manual) Seg Neutrophils # 11.8 H POC ABG pO2 Potassium Chloride 95.7 L Carbon Dioxide BUN 21 H Creatinine 3.2 H Glucose 112 H POC Glucose 111 H Calcium 8.0 L Magnesium AST ALT Alkaline Phosphatase 131 H CK-MB (CK-2) Rel Index Troponin T NT-Pro-B Natriuret Pep Total Protein Albumin 3.0 L HDL Cholesterol Acetaminophen 01/25/19 01/25/19 01/25/19 11:53 12:14 17:26 WBC RBC Hgb Hct MCH RDW Plt Count Lymph % (Auto) [place] % (Auto) Lymph # Seg Neutrophils % Monocytes % (Manual) Seg Neutrophils # POC ABG pO2 110 H Potassium Chloride Carbon Dioxide BUN Creatinine Glucose POC Glucose 113 H 109 H Calcium Magnesium AST ALT Alkaline Phosphatase CK-MB (CK-2) Rel Index Troponin T NT-Pro-B Natriuret Pep Total Protein Albumin HDL Cholesterol Acetaminophen 01/25/19 01/26/19 01/26/19 23:50 12:32 13:15 WBC RBC Hgb Hct MCH RDW Plt Count Lymph % (Auto) [place] % (Auto) Lymph # Seg Neutrophils % Monocytes % (Manual) Seg Neutrophils # POC ABG pO2 Potassium Chloride Carbon Dioxide BUN Creatinine Glucose POC Glucose 254 H 138 H Calcium Magnesium AST ALT Alkaline Phosphatase CK-MB (CK-2) Rel Index 4.3 H Troponin T 0.227 H* D NT-Pro-B Natriuret Pep Total Protein Albumin HDL Cholesterol Acetaminophen 01/26/19 01/27/19 01/27/19 21:07 08:51 12:16 WBC RBC Hgb Hct MCH RDW Plt Count Lymph % (Auto) [place] % (Auto) Lymph # Seg Neutrophils % Monocytes % (Manual) Seg Neutrophils # POC ABG pO2 Potassium Chloride Carbon Dioxide BUN Creatinine Glucose POC Glucose 218 H 120 H 211 H Calcium Magnesium AST ALT Alkaline Phosphatase CK-MB (CK-2) Rel Index Troponin T NT-Pro-B Natriuret Pep Total Protein Albumin HDL Cholesterol Acetaminophen 01/27/19 01/27/19 01/28/19 17:22 20:58 07:06 WBC RBC Hgb Hct MCH RDW Plt Count Lymph % (Auto) [place] % (Auto) Lymph # Seg Neutrophils % Monocytes % (Manual) Seg Neutrophils # POC ABG pO2 Potassium Chloride Carbon Dioxide BUN Creatinine Glucose POC Glucose 289 H 215 H 111 H Calcium Magnesium AST ALT Alkaline Phosphatase CK-MB (CK-2) Rel Index Troponin T NT-Pro-B Natriuret Pep Total Protein Albumin HDL Cholesterol Acetaminophen Allied health notes reviewed: nursing
[2019-01-28] MEDS: HumaLOG SUB-Q SCH ×3 (07:50→16:59)
[2019-01-28] MEDS ORDERED: PROCRIT SUB-Q SCH (08:00)
--- NOTE | 2019-01-28 09:39 | Progress Note ---
Assessment and Plan Out of the hospital cardiac arrest no strips available for cardiac review End stage renal disease on dialysis Dilated nonischemic cardiomyopathy EF 10-15% 12/2018 noncompliant with outpatient lifevest Coronary artery disease status post PCI of the proximal LAD using a BMS done December 2017. Hx of PAD Chronic hypertesnion Hyperlipidemia Diabetes Recommendations; Dialysis for fluid management. Medical therapy for nonischemic cardiomyopathy and coronary artery disease as tolerated. Otherwise, conservative cardiac management. On discharge, continue life vest monitoring. Subjective Date of service: 01/28/19 Principal diagnosis: Acute hypoxemic resp failure; S/P cardiac arrest; ESRD on dialysis; DM II Interval history: Patient is resting in bed and has no complaints. She denies chest pain and shortness of breath. Objective Vital Signs Temp Pulse Pulse Pulse Pulse Resp BP 01/28/19 08:33 01/28/19 07:35 98.4 F 87 16 140/72 01/28/19 04:00 87 01/28/19 03:44 98.5 F 87 18 127/61 01/28/19 00:00 87 01/27/19 23:03 98.6 F 87 18 127/61 01/27/19 22:00 86 86 18 L 01/27/19 20:00 87 01/27/19 19:45 97.8 F 86 18 117/57 01/27/19 17:08 98.8 F 18 100/47 01/27/19 14:14 97.5 F L 18 111/57 01/27/19 13:45 Pulse Ox 01/28/19 08:33 97 01/28/19 07:35 96 01/28/19 04:00 01/28/19 03:44 100 01/28/19 00:00 01/27/19 23:03 97 01/27/19 22:00 98 01/27/19 20:00 01/27/19 19:45 94 01/27/19 17:08 01/27/19 14:14 01/27/19 13:45 98 - Physical Examination General: No Apparent Distress HEENT: Positive: PERRL Neck: Positive: trachea midline Cardiac: Positive: Reg Rate and Rhythm Lungs: Positive: Decreased Breath Sounds Neuro: Positive: Weakness Extremities: Absent: edema (left transmetatarsal amputation) - Allied health notes Allied health notes reviewed: nursing
[2019-01-28] MEDS ORDERED: NACL 0.9 (PRIMING MACHINE ONLY DIALYSIS) MC ONE (11:57)
[2019-01-28] MEDS: PROCRIT SUB-Q SCH (12:36)
--- NOTE | 2019-01-28 13:00 | Progress Note ---
Assessment and Plan Assessment and plan: -- Acute respiratory failure with hypoxia; requiring intubation Extubated yesterday , nasal cannula oxygen Nebulizers supportive care, evaluation for home oxygen -- Pneumonia; probable community-acquired Pneumonia protocol, IV antibiotic, follow blood cultures, Oxygen titrate O2 sats to more than 90% -- s/p Cardiac arrest S/P ACLS with return of perfusing rhythm, Cardiology following, Cardiac cah on 01/31/2019 --Mild encephalopathy/probably hypoxic supportive care, CT head without contrast, EEG Neurology consult, supportive care --Non-ST elevation [place] continue cardiac medications, heart cath prior to discharge --Dialated CMP; EF 10-15% continue anti-failure medications input and output monitoring Cardiology recommended LifeVest during previous admission However patient did not want to use and determined the rest of the company Cardiology recommended automated access systems technician consult for possible AICD placement Next week. Patient is aware of these plans -- ESRD needing dialysis Nephrology following, HD per schedule, monitor electrolytes --HTN (hypertension) Monitor BP q shift, Pt currently hypotensive S/P cardiac arrest. -- Diabetes ADA diet, when/if awake alert, insulin, accu check,hypoglycemia protocol -- Pulmonary hypertension supportive care, continue current care, wean vent as tolerated, -- Hypokalemia corrected -- Anemia of chronic renal disease Monitor and transfuse as needed -- PVD: Continue current management -- DVT prophylaxis SCD to BLE while in bed, prophylactic heparin Physical therapy, follow neuro consult and recommendations Possible discharge in 1-2 days with home health versus a rehabilitation Plan of care reviewed with the patient and her nurse and case management History Interval history: Patient seen and examined medical records reviewed Patient feels slightly better, received hemodialysis today No new events reported Patient has no new complaints Vital signs reviewed Hospitalist Physical - Constitutional Vitals: Temp Pulse Resp BP Pulse Ox 98.4 F 84 16 101/62 98 01/28/19 09:10 01/28/19 12:00 01/28/19 09:10 01/28/19 12:00 01/28/19 10:00 General appearance: Present: no acute distress, well-nourished - EENT Eyes: Present: PERRL, EOM intact - Neck Neck: Present: supple, normal ROM - Respiratory Respiratory effort: normal Respiratory: bilateral: diminished, negative: rales, rhonchi, wheezing - Cardiovascular Rhythm: regular Heart Sounds: Present: S1 & S2 - Extremities Extremities: no ischemia, No edema - Abdominal General gastrointestinal: soft, non-tender, non-distended, normal bowel sounds - Integumentary Integumentary: Present: clear, warm - Psychiatric Psychiatric: appropriate mood/affect, cooperative - Neurologic Neurologic: moves all extremities Results - Labs CBC & Chem 7: 01/28/19 14:08 01/25/19 05:22 Labs: Laboratory Last Values WBC 13.2 K/mm3 (4.5-11.0) H 01/25/19 05:22 RBC 3.90 M/mm3 (3.65-5.03) 01/25/19 05:22 Hgb 10.3 gm/dl (10.1-14.3) 01/25/19 05:22 Hct 31.6 % (30.3-42.9) 01/25/19 05:22 MCV 81 fl (79-97) 01/25/19 05:22 MCH 26 pg (28-32) L 01/25/19 05:22 MCHC 33 % (30-34) 01/25/19 05:22 RDW 17.7 % (13.2-15.2) H 01/25/19 05:22 Plt Count 120 K/mm3 (140-440) L 01/25/19 05:22 Lymph % (Auto) 3.3 % (13.4-35.0) L 01/25/19 05:22 [place] % (Auto) 6.2 % (0.0-7.3) 01/25/19 05:22 Eos % (Auto) 0.0 % (0.0-4.3) 01/25/19 05:22 Baso % (Auto) 0.5 % (0.0-1.8) 01/25/19 05:22 Lymph # 0.4 K/mm3 (1.2-5.4) L 01/25/19 05:22 [place] # 0.8 K/mm3 (0.0-0.8) 01/25/19 05:22 Eos # 0.0 K/mm3 (0.0-0.4) 01/25/19 05:22 Baso # 0.1 K/mm3 (0.0-0.1) 01/25/19 05:22 Add Manual Diff Complete 01/22/19 Unknown Total Counted 100 01/22/19 Unknown Seg Neutrophils % 90.0 % (40.0-70.0) H 01/25/19 05:22 Seg Neuts % (Manual) 60.0 % (40.0-70.0) 01/22/19 Unknown 1.0 % 01/22/19 Unknown 25.0 % (13.4-35.0) 01/22/19 Unknown Reactive Lymphs % (Man) 0 % 01/22/19 Unknown 11.0 % (0.0-7.3) H 01/22/19 Unknown 0 % (0.0-4.3) 01/22/19 Unknown 0 % (0.0-1.8) 01/22/19 Unknown 3.0 % 01/22/19 Unknown 0 % 01/22/19 Unknown 0 % 01/22/19 Unknown 0 % 01/22/19 Unknown Nucleated RBC % Not Reportable 01/22/19 Unknown Seg Neutrophils # 11.8 K/mm3 (1.8-7.7) H 01/25/19 05:22 Seg Neutrophils # Man 4.3 K/mm3 (1.8-7.7) 01/22/19 Unknown Band Neutrophils # 0.1 K/mm3 01/22/19 Unknown 1.8 K/mm3 (1.2-5.4) 01/22/19 Unknown Abs React Lymphs (Man) 0.0 K/mm3 01/22/19 Unknown 0.8 K/mm3 (0.0-0.8) 01/22/19 Unknown 0.0 K/mm3 (0.0-0.4) 01/22/19 Unknown 0.0 K/mm3 (0.0-0.1) 01/22/19 Unknown 0.2 K/mm3 01/22/19 Unknown 0.0 K/mm3 01/22/19 Unknown 0.0 K/mm3 01/22/19 Unknown Blast Cells # 0.0 K/mm3 01/22/19 Unknown WBC Morphology Not Reportable 01/22/19 Unknown Hypersegmented Neuts Not Reportable 01/22/19 Unknown Hyposegmented Neuts Not Reportable 01/22/19 Unknown Hypogranular Neuts Not Reportable 01/22/19 Unknown Not Reportable 01/22/19 Unknown Not Reportable 01/22/19 Unknown Not Reportable 01/22/19 Unknown Not Reportable 01/22/19 Unknown Not Reportable 01/22/19 Unknown Not Reportable 01/22/19 Unknown Consistent w auto 01/22/19 Unknown Not Reportable 01/22/19 Unknown Plt Clumps, EDTA Not Reportable 01/22/19 Unknown Few 01/22/19 Unknown Not Reportable 01/22/19 Unknown Not Reportable 01/22/19 Unknown Plt Morphology Comment Not Reportable 01/22/19 Unknown RBC Morphology Not Reportable 01/22/19 Unknown Dimorphic RBCs Not Reportable 01/22/19 Unknown Not Reportable 01/22/19 Unknown Not Reportable 01/22/19 Unknown Not Reportable 01/22/19 Unknown Not Reportable 01/22/19 Unknown Not Reportable 01/22/19 Unknown Not Reportable 01/22/19 Unknown Not Reportable 01/22/19 Unknown Not Reportable 01/22/19 Unknown Not Reportable 01/22/19 Unknown Not Reportable 01/22/19 Unknown Few 01/22/19 Unknown Not Reportable 01/22/19 Unknown Not Reportable 01/22/19 Unknown Not Reportable 01/22/19 Unknown Not Reportable 01/22/19 Unknown Not Reportable 01/22/19 Unknown Not Reportable 01/22/19 Unknown Not Reportable 01/22/19 Unknown Few 01/22/19 Unknown Acanthocytes (Spur) Not Reportable 01/22/19 Unknown Rouleaux Not Reportable 01/22/19 Unknown Not Reportable 01/22/19 Unknown Rare 01/22/19 Unknown Not Reportable 01/22/19 Unknown Not Reportable 01/22/19 Unknown Hem Pathologist Commnt No 01/22/19 Unknown POC ABG pH 7.450 (7.35-7.45) 01/25/19 12:14 POC ABG pCO2 37.3 (35-45) 01/25/19 12:14 POC ABG pO2 110 (80-105) H 01/25/19 12:14 POC ABG HCO3 25.9 (22-26 mml/L) 01/25/19 12:14 POC ABG Total CO2 27 (23-27mmol/L) 01/25/19 12:14 POC ABG O2 Sat 99 01/25/19 12:14 POC ABG Base Excess 2 ((-2) - (+3)mmol/L) 01/25/19 12:14 30 % 01/25/19 12:14 Sodium 137 mmol/L (137-145) 01/25/19 05:22 Potassium 4.0 mmol/L (3.6-5.0) 01/25/19 05:22 Chloride 95.7 mmol/L (98-107) L 01/25/19 05:22 Carbon Dioxide 26 mmol/L (22-30) 01/25/19 05:22 19 mmol/L 01/25/19 05:22 BUN 21 mg/dL (7-17) H 01/25/19 05:22 3.2 mg/dL (0.7-1.2) H 01/25/19 05:22 Estimated GFR 17 ml/min 01/25/19 05:22 7 % 01/25/19 05:22 Glucose 112 mg/dL (65-100) H 01/25/19 05:22 POC Glucose 111 (70-105) H 01/28/19 07:06 Lactic Acid 1.70 mmol/L (0.7-2.0) 01/22/19 15:35 Calcium 8.0 mg/dL (8.4-10.2) L 01/25/19 05:22 Magnesium 2.00 mg/dL (1.7-2.3) 01/25/19 05:22 0.60 mg/dL (0.1-1.2) 01/25/19 05:22 AST 12 units/L (5-40) 01/25/19 05:22 ALT 15 units/L (7-56) 01/25/19 05:22 131 units/L (35-129) H 01/25/19 05:22 41 units/L (30-135) 01/26/19 13:15 CK-MB (CK-2) 1.8 ng/mL (0.0-4.0) 01/26/19 13:15 CK-MB (CK-2) Rel Index 4.3 (0-4) H 01/26/19 13:15 0.227 ng/mL (0.00-0.029) H* D 01/26/19 13:15 1.30 mg/dL (0.00-1.30) 01/22/19 15:35 NT-Pro-B Natriuret Pep 18701 pg/mL (0-900) H 01/23/19 04:29 6.7 g/dL (6.3-8.2) D 01/25/19 05:22 3.0 g/dL (3.9-5) L 01/25/19 05:22 0.8 % 01/25/19 05:22 Triglycerides 111 mg/dL (2-149) 01/22/19 Unknown Cholesterol 153 mg/dL (50-199) 01/22/19 Unknown 79 mg/dL (50-130) 01/22/19 Unknown 62 mg/dL (40-59) H 01/22/19 Unknown 2.46 % 01/22/19 Unknown Random Vancomycin 9.3 ug/mL (0-40.0) 01/25/19 05:22 Acetaminophen < 5.0 ug/mL (10.0-30.0) L 01/22/19 15:35 Hepatitis A IgM Ab Non-reactive (NonReactive) 01/22/19 15:35 Hep Bs Antigen Non-reactive (Negative) 01/22/19 15:35 Hep B Core IgM Ab Non-reactive (NonReactive) 01/22/19 15:35 Non-reactive (NonReactive) 01/22/19 15:35 Blood Type B POSITIVE 01/22/19 11:53 WOODY Antibody Screen Negative 01/22/19 11:53 Active Medications - Current Medications Current Medications: Generic Name Dose Route Start Last Admin Trade Name Freq PRN Reason Stop Dose Admin Albuterol 2.5 mg 01/22/19 12:23 01/25/19 12:40 Proventil IH 2.5 mg Q3H PRN Administration Shortness Of Breath Aspirin 81 mg 01/23/19 10:00 01/27/19 10:04 Halfprin Ec PO 81 mg QDAY LUCIO Administration Clopidogrel Bisulfate 75 mg 01/23/19 10:00 01/27/19 10:03 Plavix PO 75 mg QDAY LUCIO Administration Dextrose 50 ml 01/23/19 06:43 D50w (25gm) Syringe IV PRN PRN Hypoglycemia Enoxaparin Sodium 30 mg 01/24/19 22:00 01/27/19 22:43 Lovenox SUB-Q 30 mg QDAY@2200 LUCIO Administration Epoetin Gilberto 10,000 unit 01/26/19 12:54 01/28/19 12:36 Procrit SUB-Q 10,000 unit ALHAJI LUCIO Administration Famotidine 20 mg 01/24/19 10:00 01/27/19 10:03 Pepcid PO 20 mg DAILY LUCIO Administration Ferrous Sulfate 308 mg 01/24/19 10:00 01/27/19 10:04 Ferrous Sulfate FEEDTUBE 308 mg DAILY LUCIO Administration Hydrophilic Ointment 1 applic 01/22/19 09:33 Vaseline Lip Therapy TP Q2HR PRN Dry Lips Sodium Chloride 100 mls @ 999 mls/hr 01/24/19 16:49 Nacl 0.9% IV ALHAJI PRN Hypotension Insulin Human Lispro 0 unit 01/26/19 11:30 01/28/19 07:50 Humalog SUB-Q Not Given ACHS [facility] Protocol Lisinopril 2.5 mg 01/28/19 10:00 Zestril PO QDAY LUCIO Metoprolol Succinate 50 mg 01/28/19 10:00 Toprol Xl PO QDAY LUCIO Morphine Sulfate 1 mg 01/26/19 12:06 01/27/19 16:19 Morphine IV 1 mg Q4H PRN Administration Pain, Moderate (4-6) Multi-Ingred Cream/Lotion/Oil/Oint 1 applic 01/22/19 09:33 Artificial Tears Ophth Oint OU Q4HR PRN Dry Eye(s) Pravastatin Sodium 20 mg 01/22/19 22:00 01/27/19 22:43 Pravachol PO 20 mg QHS LUCIO Administration Sodium Chloride 10 ml 01/22/19 22:00 01/27/19 22:44 Sodium Chloride Flush Syringe 10 Ml IV 10 ml BID LUCIO Administration Sodium Chloride 10 ml 01/22/19 12:23 01/26/19 12:20 Sodium Chloride Flush Syringe 10 Ml IV 10 ml PRN PRN Administration LINE FLUSH Nutrition/Malnutrition Assess - Dietary Evaluation Nutrition/Malnutrition Findings: Nutrition Notes Start: 01/23/19 10:56 Freq: Status: Active Protocol: Document 01/27/19 15:27 RM (Rec: 01/27/19 15:33 RM [id number]) Nutrition Notes Initial or Follow up Reassessment Current Diagnosis Decubitus(Pressure Ulcer), Diabetes,Hypertension,Stroke Other Pertinent Diagnosis ESRD on HD (T/R/Sa), PVD, Pneu , R & L foot wounds Current Diet Renal Labs/Tests Reviewed Pertinent Medications Reviewed Height 5 ft 6 in Weight 58.7 kg [place] Body Weight (kg) 59.09 BMI 20.9 Subjective/Other Information Pt moved from ICU to floor. Pt not in room at time of visit. Per tech pt has been eating 100% of her meals. Percent of energy/protein needs met: 100%/100% Burn Absent Trauma Absent #1 Nutrition Diagnosis Inadequate oral intake As Evidenced by Signs and Symptoms pt meeting 100% of calorie and protein needs Diagnosis Progress(for reassessment Resolved documentation) Is patient on ventilator? No Is Patient Ambulatory and/or Out of Bed No REE-([facility]-confined to bed) [phone] Calculation Used for Recommendations [facility] Additional Notes Protein Needs: 70-76g (1.2-1. 3g/kg) Fluid Needs: 1 ml/kcal Nutrition Intervention Change Diet Order: Continue current Goal #1 Continue to meet at least 75% of calorie and protein needs via PO intakes Anticipated Discharge Needs: Renal diet Follow-Up By: 02/05/19 Additional Comments Follow for stable intakes
--- NOTE | 2019-01-28 13:38 | Event Note ---
Date: 01/28/19 We were notified that the patient does not have the lifevest at home. In fact, she returned it to [facility] January 18. After further discussion with Dr Rodriguez, our channel partners, the patient and her son, Leyla, we will advance directly to ICD implant as a secondary indication during this admission.
[2019-01-28 14:24] LABS: Basophils % (Auto) 0.5 % (0.0-1.8); Eosinophils # (Auto) 0.1 K/mm3 (0.0-0.4); Eosinophils % (Auto) 1.6 % (0.0-4.3); Hematocrit 31.7 % (30.3-42.9); Hemoglobin 10.4 gm/dl (10.1-14.3); Lymphocytes # (Auto) 0.6 K/mm3 (1.2-5.4); Lymphocytes % (Auto) 8.6 % (13.4-35.0); Mean Corpuscular HGB Conc 33 % (30-34); Mean Corpuscular Volume 80 fl (79-97); Monocytes # (Auto) 0.6 K/mm3 (0.0-0.8); Monocytes % (Auto) 8.8 % (0.0-7.3); Platelet Count 161 K/mm3 (140-440); Red Blood Count 3.98 M/mm3 (3.65-5.03); Red Cell Distribution Width 17.6 % (13.2-15.2)
--- NOTE | 2019-01-28 14:57 | Progress Note ---
Assessment and Plan - Patient Problems (1) ESRD needing dialysis Current Visit: Yes Status: Acute Plan to address problem: cont maintenance HD on MWF schedule while inpatient (2) Cardiac arrest Current Visit: Yes Status: Acute Plan to address problem: s/p ALCS with return of spontaneous circulation, currently off vasopressors. follow cardiology recommendations. (3) HTN (hypertension) Current Visit: Yes Status: Acute Qualifiers: Hypertension type: essential hypertension Qualified Code(s): I10 - Essential (primary) hypertension Plan to address problem: off antihypertensives s/p cardiac arrest. (4) Pneumonia Current Visit: Yes Status: Acute Qualifiers: Pneumonia type: due to unspecified organism Laterality: bilateral Lung location: upper lobe of lung Qualified Code(s): J18.1 - Lobar pneumonia, unspecified organism Plan to address problem: started on empiric ABXs, dose all meds for HD (5) Anemia Current Visit: No Status: Acute Qualifiers: Anemia type: unspecified type Qualified Code(s): D64.9 - Anemia, unspecified Plan to address problem: cont EPO with HD (6) Nonischemic cardiomyopathy Current Visit: No Status: Acute Plan to address problem: Dilated nonischemic cardiomyopathy with EF 10-15% 12/2018; noncompliant with ou tpatient lifevest. pt being evaluated for ICD placement Subjective Date of service: 01/28/19 Principal diagnosis: Acute hypoxemic resp failure; S/P cardiac arrest; ESRD on dialysis; DM II Interval history: Pt is awake, alert, oriented to person and place, not to date. in no acute respiratory distress. Objective - Vital Signs Vital signs: Vital Signs - 12hr 01/28/19 01/28/19 01/28/19 03:44 04:00 07:35 Temperature 98.5 F 98.4 F Pulse Rate 87 87 87 Pulse Rate [ Left Dorsalis Pedis] Pulse Rate [ Right Dorsalis Pedis] Pulse Rate [ Right Radial] Respiratory 18 16 Rate Blood Pressure 127/61 140/72 O2 Sat by Pulse 100 96 Oximetry 01/28/19 01/28/19 01/28/19 08:00 08:33 09:10 Temperature 98.4 F Pulse Rate 84 89 Pulse Rate [ Left Dorsalis Pedis] Pulse Rate [ Right Dorsalis Pedis] Pulse Rate [ Right Radial] Respiratory 16 Rate Blood Pressure 146/74 O2 Sat by Pulse 97 Oximetry 01/28/19 01/28/19 01/28/19 09:30 09:45 10:00 Temperature Pulse Rate 88 90 92 H Pulse Rate [ 84 Left Dorsalis Pedis] Pulse Rate [ 84 Right Dorsalis Pedis] Pulse Rate [ 84 Right Radial] Respiratory Rate Blood Pressure 152/79 131/75 125/66 O2 Sat by Pulse 98 Oximetry 01/28/19 01/28/19 01/28/19 10:15 10:30 10:45 Temperature Pulse Rate 92 H 94 H 94 H Pulse Rate [ Left Dorsalis Pedis] Pulse Rate [ Right Dorsalis Pedis] Pulse Rate [ Right Radial] Respiratory Rate Blood Pressure 121/67 132/66 119/69 O2 Sat by Pulse Oximetry 01/28/19 01/28/19 01/28/19 11:00 11:15 11:30 Temperature Pulse Rate 96 H 99 H 97 H Pulse Rate [ Left Dorsalis Pedis] Pulse Rate [ Right Dorsalis Pedis] Pulse Rate [ Right Radial] Respiratory Rate Blood Pressure 125/70 127/68 115/70 O2 Sat by Pulse Oximetry 01/28/19 01/28/19 01/28/19 11:45 12:00 12:15 Temperature Pulse Rate 97 H 84 101 H Pulse Rate [ Left Dorsalis Pedis] Pulse Rate [ Right Dorsalis Pedis] Pulse Rate [ Right Radial] Respiratory Rate Blood Pressure 124/70 101/62 113/69 O2 Sat by Pulse Oximetry 01/28/19 01/28/19 01/28/19 12:30 12:45 13:01 Temperature Pulse Rate 108 H 103 H 103 H Pulse Rate [ Left Dorsalis Pedis] Pulse Rate [ Right Dorsalis Pedis] Pulse Rate [ Right Radial] Respiratory Rate Blood Pressure 111/70 120/69 110/68 O2 Sat by Pulse Oximetry 01/28/19 13:15 Temperature 98.4 F Pulse Rate 97 H Pulse Rate [ Left Dorsalis Pedis] Pulse Rate [ Right Dorsalis Pedis] Pulse Rate [ Right Radial] Respiratory 16 Rate Blood Pressure 135/72 O2 Sat by Pulse Oximetry - General Appearance General appearance: well-developed, appears stated age, chronically ill, frail EENT: ATNC, PERRL, mucous membranes moist Neck: no JVD Respiratory: Present: Clear to Ascultation Cardiology: regular, S1S2 Gastrointestinal: normoactive bowel sounds Integumentary: no rash, other (no edema ) Neurologic: no focal deficit, alert and oriented x3, strength 5/5, CN 3-12 intact Psychiatric: mood/affect appropriate, cooperative - Lab 01/28/19 14:08 01/25/19 05:22 Most recent lab results Calcium 8.0 mg/dL (8.4-10.2) L 01/25/19 05:22 Magnesium 2.00 mg/dL (1.7-2.3) 01/25/19 05:22 Medications & Allergies - Medications Allergies/Adverse Reactions: Allergies phenytoin sodium [From Dilantin] Allergy (Verified 05/08/16 07:07) Anaphylaxis phenytoin sodium extended [From Dilantin] Allergy (Verified 05/08/16 07:07) Anaphylaxis Home Medications: Home Medications Medication Instructions Recorded Confirmed Last Taken Type Ferrous Sulfate [Iron 325 MG] 325 mg PO DAILY 01/04/19 01/22/19 01/03/19 History Aspirin EC 81 mg PO QDAY #30 tablet. 01/07/19 01/22/19 Unknown Rx Clopidogrel [Plavix] 75 mg PO QDAY #30 tablet 01/07/19 01/22/19 Unknown Rx Losartan [Cozaar] 100 mg PO DAILY 30 Days #30 tablet 01/07/19 01/22/19 Unknown Rx Metoprolol [Lopressor TAB] 50 mg PO BID #60 tablet 01/07/19 01/22/19 Unknown Rx Pravastatin [Pravachol] 20 mg PO QHS #30 tablet 01/07/19 01/22/19 Unknown Rx Active Medications: Generic Name Dose Route Start Last Admin Trade Name Galindoq PRN Reason Stop Dose Admin Albuterol 2.5 mg 01/22/19 12:23 01/25/19 12:40 Proventil IH 2.5 mg Q3H PRN Administration Shortness Of Breath Aspirin 81 mg 01/23/19 10:00 01/27/19 10:04 Halfprin Ec PO 81 mg QDAY LUCIO Administration Clopidogrel Bisulfate 75 mg 01/23/19 10:00 01/27/19 10:03 Plavix PO 75 mg QDAY LUCIO Administration Sodium Chloride 1,000 ml/ 0 ml 01/31/19 06:00 Vancomycin HCl 1,000 mg IR 01/31/19 06:01 INTRAOP ONE Dextrose 50 ml 01/23/19 06:43 D50w (25gm) Syringe IV PRN PRN Hypoglycemia Enoxaparin Sodium 30 mg 01/24/19 22:00 01/27/19 22:43 Lovenox SUB-Q 30 mg QDAY@2200 LUCIO Administration Epoetin Gilberto 10,000 unit 01/26/19 12:54 01/28/19 12:36 Procrit SUB-Q 10,000 unit ALHAJI LUCIO Administration Famotidine 20 mg 01/24/19 10:00 01/27/19 10:03 Pepcid PO 20 mg DAILY LUCIO Administration Ferrous Sulfate 308 mg 01/24/19 10:00 01/27/19 10:04 Ferrous Sulfate FEEDTUBE 308 mg DAILY LUCIO Administration Hydrophilic Ointment 1 applic 01/22/19 09:33 Vaseline Lip Therapy TP Q2HR PRN Dry Lips Sodium Chloride 100 mls @ 999 mls/hr 01/24/19 16:49 Nacl 0.9% IV ALHAJI PRN Hypotension Insulin Human Lispro 0 unit 01/26/19 11:30 01/28/19 11:38 Humalog SUB-Q Not Given ACHS [facility] Protocol Lisinopril 2.5 mg 01/28/19 10:00 Zestril PO QDAY [facility] Metoprolol Succinate 50 mg 01/28/19 10:00 Toprol Xl PO QDAY [facility] Morphine Sulfate 1 mg 01/26/19 12:06 01/27/19 16:19 Morphine IV 1 mg Q4H PRN Administration Pain, Moderate (4-6) Multi-Ingred Cream/Lotion/Oil/Oint 1 applic 01/22/19 09:33 Artificial Tears Ophth Oint OU Q4HR PRN Dry Eye(s) Pravastatin Sodium 20 mg 01/22/19 22:00 01/27/19 22:43 Pravachol PO 20 mg QHS LUCIO Administration Sodium Chloride 10 ml 01/22/19 22:00 01/27/19 22:44 Sodium Chloride Flush Syringe 10 Ml IV 10 ml BID LUCIO Administration Sodium Chloride 10 ml 01/22/19 12:23 01/26/19 12:20 Sodium Chloride Flush Syringe 10 Ml IV 10 ml PRN PRN Administration LINE FLUSH
[2019-01-28] MEDS: HALFPRIN EC PO SCH (14:59)
[2019-01-28] MEDS: FERROUS SULFATE FEEDTUBE SCH (14:59)
[2019-01-28] MEDS: ZESTRIL PO SCH (14:59)
[2019-01-28] MEDS: PEPCID PO SCH (14:59)
[2019-01-28] MEDS: PLAVIX PO SCH (15:00)
[2019-01-28] MEDS: TOPROL XL PO SCH (15:00)
[2019-01-28] MEDS: SODIUM CHLORIDE FLUSH SYRINGE 10 ML IV SCH ×2 (15:00→21:46)
[2019-01-28] MEDS: MORPHINE IV PRN (20:31)
[2019-01-28] MEDS: LOVENOX SUB-Q SCH (21:46)
[2019-01-28] MEDS: PRAVACHOL PO SCH (21:46)
[2019-01-28] MEDS: SODIUM CHLORIDE FLUSH SYRINGE 10 ML IV PRN (21:47)
[2019-01-29] MEDS: HumaLOG SUB-Q SCH ×5 (01:02→23:25)
--- NOTE | 2019-01-29 08:02 | Progress Note ---
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 ICD placement planned for Thursday (2) ESRD needing dialysis Current Visit: Yes Status: Acute Plan to address problem: Continue hemodialysis on a Thursday, Thursday and Thursday schedule. (3) Anemia in chronic kidney disease Current Visit: No Status: Acute Plan to address problem: Continue Erythropoetin on dialysis (4) Chronic systolic heart failure Current Visit: No Status: Acute Plan to address problem: Dilated nonischemic cardiomyopathy with EF 10-15% 12/2018; noncompliant with outpatient lifevest. For ICD placement on Thursday. 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 Follow blood pressure on current medications Subjective Date of service: 01/29/19 Principal diagnosis: Acute hypoxemic resp failure; S/P cardiac arrest; ESRD on dialysis; DM II Interval history: Patient seen lying in bed. "I feel better today. I slept well. I am no longer having the pain in my chest or back" Objective - Exam Narrative Exam: Elderly -[place] female lying in bed in no acute distress HEENT: NCAT, pink oral mucous membrane Neck: Supple, no venous distention CVS: S1S2 RRR with no murmur, rub or gallop Chest: Clear to auscultation Abdomen: Protuberant, soft, nontender, no organomegaly, bowel sounds are present Extremities: No edema, right upper extremity AV fistula, swelling of the right upper extremity Neuro: Awake, alert no focal deficits - Vital Signs Vital signs: Vital Signs - 12hr 01/28/19 01/28/19 01/29/19 20:31 20:32 00:18 Temperature 98.1 F 98.7 F Pulse Rate 80 81 Respiratory 20 20 18 Rate Blood Pressure 99/50 126/62 O2 Sat by Pulse 92 97 Oximetry 01/29/19 01/29/19 04:30 04:50 Temperature 99.0 F Pulse Rate 81 76 Respiratory 20 Rate Blood Pressure 124/60 O2 Sat by Pulse 94 Oximetry - Lab 01/28/19 14:08 01/25/19 05:22 Most recent lab results Calcium 8.0 mg/dL (8.4-10.2) L 01/25/19 05:22 Magnesium 2.00 mg/dL (1.7-2.3) 01/25/19 05:22 Medications & Allergies - Medications Allergies/Adverse Reactions: Allergies phenytoin sodium [From Dilantin] Allergy (Verified 05/08/16 07:07) Anaphylaxis phenytoin sodium extended [From Dilantin] Allergy (Verified 05/08/16 07:07) Anaphylaxis Home Medications: Home Medications Medication Instructions Recorded Confirmed Last Taken Type Ferrous Sulfate [Iron 325 MG] 325 mg PO DAILY 01/04/19 01/22/19 01/03/19 History Aspirin EC 81 mg PO QDAY #30 tablet. 01/07/19 01/22/19 Unknown Rx Clopidogrel [Plavix] 75 mg PO QDAY #30 tablet 01/07/19 01/22/19 Unknown Rx Losartan [Cozaar] 100 mg PO DAILY 30 Days #30 tablet 01/07/19 01/22/19 Unknown Rx Metoprolol [Lopressor TAB] 50 mg PO BID #60 tablet 01/07/19 01/22/19 Unknown Rx Pravastatin [Pravachol] 20 mg PO QHS #30 tablet 01/07/19 01/22/19 Unknown Rx Active Medications: Generic Name Dose Route Start Last Admin Trade Name Freq PRN Reason Stop Dose Admin Albuterol 2.5 mg 01/22/19 12:23 01/25/19 12:40 Proventil IH 2.5 mg Q3H PRN Administration Shortness Of Breath Aspirin 81 mg 01/23/19 10:00 01/28/19 14:59 Halfprin Ec PO 81 mg QDAY LUCIO Administration Clopidogrel Bisulfate 75 mg 01/23/19 10:00 01/28/19 15:00 Plavix PO 75 mg QDAY LUCIO Administration Sodium Chloride 1,000 ml/ 0 ml 01/31/19 06:00 Vancomycin HCl 1,000 mg IR 01/31/19 06:01 INTRAOP ONE Dextrose 50 ml 01/23/19 06:43 D50w (25gm) Syringe IV PRN PRN Hypoglycemia Enoxaparin Sodium 30 mg 01/24/19 22:00 01/28/19 21:46 Lovenox SUB-Q 30 mg QDAY@2200 LUCIO Administration Epoetin Gilberto 10,000 unit 01/26/19 12:54 01/28/19 12:36 Procrit SUB-Q 10,000 unit ALHAJI LUCIO Administration Famotidine 20 mg 01/24/19 10:00 01/28/19 14:59 Pepcid PO 20 mg DAILY LUCIO Administration Ferrous Sulfate 308 mg 01/24/19 10:00 01/28/19 14:59 Ferrous Sulfate FEEDTUBE 308 mg DAILY LUCIO Administration Guaifenesin 10 ml 01/28/19 23:54 01/29/19 01:18 Guaifenesin Dm Syrup PO 10 ml Q4H PRN Administration Cough Hydrophilic Ointment 1 applic 01/22/19 09:33 Vaseline Lip Therapy TP Q2HR PRN Dry Lips Sodium Chloride 100 mls @ 999 mls/hr 01/24/19 16:49 Nacl 0.9% IV ALHAJI PRN Hypotension Insulin Human Lispro 0 unit 01/26/19 11:30 01/29/19 01:02 Humalog SUB-Q Not Given ACHS [facility] Protocol Lisinopril 2.5 mg 01/28/19 10:00 01/28/19 14:59 Zestril PO 2.5 mg QDAY LUCIO Administration Metoprolol Succinate 50 mg 01/28/19 10:00 01/28/19 15:00 Toprol Xl PO 50 mg QDAY LUCIO Administration Morphine Sulfate 1 mg 01/26/19 12:06 01/28/19 20:31 Morphine IV 1 mg Q4H PRN Administration Pain, Moderate (4-6) Multi-Ingred Cream/Lotion/Oil/Oint 1 applic 01/22/19 09:33 Artificial Tears Ophth Oint OU Q4HR PRN Dry Eye(s) Pravastatin Sodium 20 mg 01/22/19 22:00 01/28/19 21:46 Pravachol PO 20 mg QHS LUCIO Administration Sodium Chloride 10 ml 01/22/19 22:00 01/28/19 21:46 Sodium Chloride Flush Syringe 10 Ml IV 10 ml BID LUCIO Administration Sodium Chloride 10 ml 01/22/19 12:23 01/28/19 21:47 Sodium Chloride Flush Syringe 10 Ml IV 10 ml PRN PRN Administration LINE FLUSH
[2019-01-29] MEDS: ZESTRIL PO SCH (09:55)
[2019-01-29] MEDS: PLAVIX PO SCH (09:55)
[2019-01-29] MEDS: HALFPRIN EC PO SCH (09:58)
[2019-01-29] MEDS: SODIUM CHLORIDE FLUSH SYRINGE 10 ML IV SCH ×2 (09:58→21:27)
[2019-01-29] MEDS: TOPROL XL PO SCH (09:58)
[2019-01-29] MEDS: PEPCID PO SCH (09:58)
[2019-01-29] MEDS: MORPHINE IV PRN (11:34)
--- NOTE | 2019-01-29 12:30 | Progress Note ---
Assessment and Plan - Patient Problems (1) Cardiopulmonary arrest Current Visit: Yes Status: Acute Plan to address problem: Patient is stable following an out of hospital cardiopulmonary arrest. ICD implant has been scheduled for Thursday. Subjective Date of service: 01/29/19 Principal diagnosis: Acute hypoxemic resp failure; S/P cardiac arrest; ESRD on dialysis; DM II Interval history: Patient is comfortable, no new cardiac complaints. Objective Vital Signs Temp Pulse Resp BP BP Pulse Ox 01/29/19 11:22 98.1 F 18 123/60 01/29/19 11:05 96 01/29/19 07:17 98.4 F 18 132/60 01/29/19 04:50 99.0 F 76 20 124/60 94 01/29/19 04:30 81 01/29/19 00:18 98.7 F 81 18 126/62 97 01/28/19 20:32 98.1 F 80 20 99/50 92 01/28/19 20:31 20 01/28/19 17:12 98.6 F 98 H 16 115/61 94 01/28/19 16:00 84 01/28/19 13:15 98.4 F 97 H 16 135/72 01/28/19 13:01 103 H 110/68 01/28/19 12:45 103 H 120/69 01/28/19 12:30 108 H 111/70 - Physical Examination General: No Apparent Distress HEENT: Positive: PERRL Neck: Positive: trachea midline Cardiac: Positive: Reg Rate and Rhythm Lungs: Positive: Decreased Breath Sounds Neuro: Positive: Grossly Intact Abdomen: Positive: Soft Skin: Positive: Clear Extremities: Absent: edema (left transmetatarsal amputation) - Labs and Meds CBC 01/28/19 Range/Units 14:08 WBC 6.6 (4.5-11.0) K/mm3 RBC 3.98 (3.65-5.03) M/mm3 Hgb 10.4 (10.1-14.3) gm/dl Hct 31.7 (30.3-42.9) % Plt Count 161 (140-440) K/mm3 Lymph # 0.6 L (1.2-5.4) K/mm3 [place] # 0.6 (0.0-0.8) K/mm3 Eos # 0.1 (0.0-0.4) K/mm3 Baso # 0.0 (0.0-0.1) K/mm3 - Allied health notes Allied health notes reviewed: nursing
[2019-01-29] MEDS: FERROUS SULFATE FEEDTUBE SCH (12:36)
--- NOTE | 2019-01-29 12:42 | Progress Note ---
Assessment and Plan Assessment and plan: --Dialated CMP; EF 10-15% anti-failure medications input and output monitoring Noncompliant with cardiac vest, possible AICD placement Next week. Patient is aware of these plans -- s/p Cardiac arrest; outside the hospital S/P ACLS with return of perfusing rhythm, Cardiology following, Cardiac cah on 01/31/2019 -- Acute respiratory failure with hypoxia; S/P,extubated On nasal cannula oxygen , O2 sats titrated to more than 90% Nebulizers supportive care, evaluation for home oxygen -- Pneumonia; probable community-acquired Pneumonia protocol, IV antibiotic, follow blood cultures, Oxygen titrate O2 sats to more than 90% --Mild encephalopathy/probably hypoxic supportive care, CT head without contrast, EEG Neurology consult, supportive care --Non-ST elevation MT continue cardiac medications, heart cath prior to discharge -- ESRD needing dialysis Nephrology following, HD per schedule, monitor electrolytes --HTN (hypertension) Monitor BP q shift, Pt currently hypotensive S/P cardiac arrest. -- Diabetes ADA diet, when/if awake alert, insulin, accu check,hypoglycemia protocol -- Pulmonary hypertension supportive care, continue current care, wean vent as tolerated, -- Hypokalemia corrected -- Anemia of chronic renal disease Monitor and transfuse as needed -- PVD: Continue current management -- DVT prophylaxis SCD to BLE while in bed, prophylactic heparin Physical therapy, follow neuro consult and recommendations Possible discharge in 1-2 days with home health versus a rehabilitation Plan of care reviewed with the patient and her nurse and case management History Interval history: Patient seen and examined medical records reviewed No new complaints vital signs stable Awaiting ICD placement next week Hospitalist Physical - Constitutional Vitals: Temp Pulse Resp BP Pulse Ox 98.1 F 76 18 123/60 96 01/29/19 11:22 01/29/19 04:50 01/29/19 11:22 01/29/19 11:22 01/29/19 11:05 General appearance: Present: no acute distress, well-nourished - EENT Eyes: Present: PERRL, EOM intact - Neck Neck: Present: supple, normal ROM - Respiratory Respiratory effort: normal Respiratory: bilateral: diminished, negative: rales, rhonchi, wheezing - Cardiovascular Rhythm: regular Heart Sounds: Present: S1 & S2 - Extremities Extremities: no ischemia, No edema - Abdominal General gastrointestinal: soft, non-tender, non-distended, normal bowel sounds - Integumentary Integumentary: Present: clear, warm - Psychiatric Psychiatric: appropriate mood/affect, memory intact - Neurologic Neurologic: moves all extremities Results - Labs CBC & Chem 7: 01/28/19 14:08 01/25/19 05:22 Labs: Laboratory Last Values WBC 6.6 K/mm3 (4.5-11.0) 01/28/19 14:08 RBC 3.98 M/mm3 (3.65-5.03) 01/28/19 14:08 Hgb 10.4 gm/dl (10.1-14.3) 01/28/19 14:08 Hct 31.7 % (30.3-42.9) 01/28/19 14:08 MCV 80 fl (79-97) 01/28/19 14:08 MCH 26 pg (28-32) L 01/28/19 14:08 MCHC 33 % (30-34) 01/28/19 14:08 RDW 17.6 % (13.2-15.2) H 01/28/19 14:08 Plt Count 161 K/mm3 (140-440) 01/28/19 14:08 Lymph % (Auto) 8.6 % (13.4-35.0) L 01/28/19 14:08 [place] % (Auto) 8.8 % (0.0-7.3) H 01/28/19 14:08 Eos % (Auto) 1.6 % (0.0-4.3) 01/28/19 14:08 Baso % (Auto) 0.5 % (0.0-1.8) 01/28/19 14:08 Lymph # 0.6 K/mm3 (1.2-5.4) L 01/28/19 14:08 [place] # 0.6 K/mm3 (0.0-0.8) 01/28/19 14:08 Eos # 0.1 K/mm3 (0.0-0.4) 01/28/19 14:08 Baso # 0.0 K/mm3 (0.0-0.1) 01/28/19 14:08 Add Manual Diff Complete 01/22/19 Unknown Total Counted 100 01/22/19 Unknown Seg Neutrophils % 80.5 % (40.0-70.0) H 01/28/19 14:08 Seg Neuts % (Manual) 60.0 % (40.0-70.0) 01/22/19 Unknown 1.0 % 01/22/19 Unknown 25.0 % (13.4-35.0) 01/22/19 Unknown Reactive Lymphs % (Man) 0 % 01/22/19 Unknown 11.0 % (0.0-7.3) H 01/22/19 Unknown 0 % (0.0-4.3) 01/22/19 Unknown 0 % (0.0-1.8) 01/22/19 Unknown 3.0 % 01/22/19 Unknown 0 % 01/22/19 Unknown 0 % 01/22/19 Unknown 0 % 01/22/19 Unknown Nucleated RBC % Not Reportable 01/22/19 Unknown Seg Neutrophils # 5.3 K/mm3 (1.8-7.7) 01/28/19 14:08 Seg Neutrophils # Man 4.3 K/mm3 (1.8-7.7) 01/22/19 Unknown Band Neutrophils # 0.1 K/mm3 01/22/19 Unknown 1.8 K/mm3 (1.2-5.4) 01/22/19 Unknown Abs React Lymphs (Man) 0.0 K/mm3 01/22/19 Unknown 0.8 K/mm3 (0.0-0.8) 01/22/19 Unknown 0.0 K/mm3 (0.0-0.4) 01/22/19 Unknown 0.0 K/mm3 (0.0-0.1) 01/22/19 Unknown 0.2 K/mm3 01/22/19 Unknown 0.0 K/mm3 01/22/19 Unknown 0.0 K/mm3 01/22/19 Unknown Blast Cells # 0.0 K/mm3 01/22/19 Unknown WBC Morphology Not Reportable 01/22/19 Unknown Hypersegmented Neuts Not Reportable 01/22/19 Unknown Hyposegmented Neuts Not Reportable 01/22/19 Unknown Hypogranular Neuts Not Reportable 01/22/19 Unknown Not Reportable 01/22/19 Unknown Not Reportable 01/22/19 Unknown Not Reportable 01/22/19 Unknown Not Reportable 01/22/19 Unknown Not Reportable 01/22/19 Unknown Not Reportable 01/22/19 Unknown Consistent w auto 01/22/19 Unknown Not Reportable 01/22/19 Unknown Plt Clumps, EDTA Not Reportable 01/22/19 Unknown Few 01/22/19 Unknown Not Reportable 01/22/19 Unknown Not Reportable 01/22/19 Unknown Plt Morphology Comment Not Reportable 01/22/19 Unknown RBC Morphology Not Reportable 01/22/19 Unknown Dimorphic RBCs Not Reportable 01/22/19 Unknown Not Reportable 01/22/19 Unknown Not Reportable 01/22/19 Unknown Not Reportable 01/22/19 Unknown Not Reportable 01/22/19 Unknown Not Reportable 01/22/19 Unknown Not Reportable 01/22/19 Unknown Not Reportable 01/22/19 Unknown Not Reportable 01/22/19 Unknown Not Reportable 01/22/19 Unknown Not Reportable 01/22/19 Unknown Few 01/22/19 Unknown Not Reportable 01/22/19 Unknown Not Reportable 01/22/19 Unknown Not Reportable 01/22/19 Unknown Not Reportable 01/22/19 Unknown Not Reportable 01/22/19 Unknown Not Reportable 01/22/19 Unknown Not Reportable 01/22/19 Unknown Few 01/22/19 Unknown Acanthocytes (Spur) Not Reportable 01/22/19 Unknown Rouleaux Not Reportable 01/22/19 Unknown Not Reportable 01/22/19 Unknown Rare 01/22/19 Unknown Not Reportable 01/22/19 Unknown Not Reportable 01/22/19 Unknown Hem Pathologist Commnt No 01/22/19 Unknown POC ABG pH 7.450 (7.35-7.45) 01/25/19 12:14 POC ABG pCO2 37.3 (35-45) 01/25/19 12:14 POC ABG pO2 110 (80-105) H 01/25/19 12:14 POC ABG HCO3 25.9 (22-26 mml/L) 01/25/19 12:14 POC ABG Total CO2 27 (23-27mmol/L) 01/25/19 12:14 POC ABG O2 Sat 99 01/25/19 12:14 POC ABG Base Excess 2 ((-2) - (+3)mmol/L) 01/25/19 12:14 30 % 01/25/19 12:14 Sodium 137 mmol/L (137-145) 01/25/19 05:22 Potassium 4.0 mmol/L (3.6-5.0) 01/25/19 05:22 Chloride 95.7 mmol/L (98-107) L 01/25/19 05:22 Carbon Dioxide 26 mmol/L (22-30) 01/25/19 05:22 19 mmol/L 01/25/19 05:22 BUN 21 mg/dL (7-17) H 01/25/19 05:22 3.2 mg/dL (0.7-1.2) H 01/25/19 05:22 Estimated GFR 17 ml/min 01/25/19 05:22 7 % 01/25/19 05:22 Glucose 112 mg/dL (65-100) H 01/25/19 05:22 POC Glucose 247 (70-105) H 01/29/19 11:27 Lactic Acid 1.70 mmol/L (0.7-2.0) 01/22/19 15:35 Calcium 8.0 mg/dL (8.4-10.2) L 01/25/19 05:22 Magnesium 2.00 mg/dL (1.7-2.3) 01/25/19 05:22 0.60 mg/dL (0.1-1.2) 01/25/19 05:22 AST 12 units/L (5-40) 01/25/19 05:22 ALT 15 units/L (7-56) 01/25/19 05:22 131 units/L (35-129) H 01/25/19 05:22 41 units/L (30-135) 01/26/19 13:15 CK-MB (CK-2) 1.8 ng/mL (0.0-4.0) 01/26/19 13:15 CK-MB (CK-2) Rel Index 4.3 (0-4) H 01/26/19 13:15 0.227 ng/mL (0.00-0.029) H* D 01/26/19 13:15 1.30 mg/dL (0.00-1.30) 01/22/19 15:35 NT-Pro-B Natriuret Pep 02995 pg/mL (0-900) H 01/23/19 04:29 6.7 g/dL (6.3-8.2) D 01/25/19 05:22 3.0 g/dL (3.9-5) L 01/25/19 05:22 0.8 % 01/25/19 05:22 Triglycerides 111 mg/dL (2-149) 01/22/19 Unknown Cholesterol 153 mg/dL (50-199) 01/22/19 Unknown 79 mg/dL (50-130) 01/22/19 Unknown 62 mg/dL (40-59) H 01/22/19 Unknown 2.46 % 01/22/19 Unknown Random Vancomycin 9.3 ug/mL (0-40.0) 01/25/19 05:22 Acetaminophen < 5.0 ug/mL (10.0-30.0) L 01/22/19 15:35 Hepatitis A IgM Ab Non-reactive (NonReactive) 01/22/19 15:35 Hep Bs Antigen Non-reactive (Negative) 01/22/19 15:35 Hep B Core IgM Ab Non-reactive (NonReactive) 01/22/19 15:35 Non-reactive (NonReactive) 01/22/19 15:35 Blood Type B POSITIVE 01/22/19 11:53 WOODY Antibody Screen Negative 01/22/19 11:53 Active Medications - Current Medications Current Medications: Generic Name Dose Route Start Last Admin Trade Name Freq PRN Reason Stop Dose Admin Albuterol 2.5 mg 01/22/19 12:23 01/25/19 12:40 Proventil IH 2.5 mg Q3H PRN Administration Shortness Of Breath Aspirin 81 mg 01/23/19 10:00 01/29/19 09:58 Halfprin Ec PO 81 mg QDAY LUCIO Administration Clopidogrel Bisulfate 75 mg 01/23/19 10:00 01/29/19 09:55 Plavix PO 75 mg QDAY LUCIO Administration Sodium Chloride 1,000 ml/ 0 ml 01/31/19 06:00 Vancomycin HCl 1,000 mg IR 01/31/19 06:01 INTRAOP ONE Dextrose 50 ml 01/23/19 06:43 D50w (25gm) Syringe IV PRN PRN Hypoglycemia Enoxaparin Sodium 30 mg 01/24/19 22:00 01/28/19 21:46 Lovenox SUB-Q 30 mg QDAY@2200 LUCIO Administration Epoetin Gilberto 10,000 unit 01/26/19 12:54 01/28/19 12:36 Procrit SUB-Q 10,000 unit ALHAJI LUCIO Administration Famotidine 20 mg 01/24/19 10:00 01/29/19 09:58 Pepcid PO 20 mg DAILY LUCIO Administration Ferrous Sulfate 308 mg 01/24/19 10:00 01/28/19 14:59 Ferrous Sulfate FEEDTUBE 308 mg DAILY LUCIO Administration Guaifenesin 10 ml 01/28/19 23:54 01/29/19 01:18 Guaifenesin Dm Syrup PO 10 ml Q4H PRN Administration Cough Hydrophilic Ointment 1 applic 01/22/19 09:33 Vaseline Lip Therapy TP Q2HR PRN Dry Lips Sodium Chloride 100 mls @ 999 mls/hr 01/24/19 16:49 Nacl 0.9% IV ALHAJI PRN Hypotension Insulin Human Lispro 0 unit 01/26/19 11:30 01/29/19 09:50 Humalog SUB-Q Not Given ACHS [facility] Protocol Lisinopril 2.5 mg 01/28/19 10:00 01/29/19 09:55 Zestril PO 2.5 mg QDAY [facility] Administration Metoprolol Succinate 50 mg 01/28/19 10:00 01/29/19 09:58 Toprol Xl PO 50 mg QDAY LUCIO Administration Morphine Sulfate 1 mg 01/26/19 12:06 01/29/19 11:34 Morphine IV 1 mg Q4H PRN Administration Pain, Moderate (4-6) Multi-Ingred Cream/Lotion/Oil/Oint 1 applic 01/22/19 09:33 Artificial Tears Ophth Oint OU Q4HR PRN Dry Eye(s) Pravastatin Sodium 20 mg 01/22/19 22:00 01/28/19 21:46 Pravachol PO 20 mg QHS LUCIO Administration Sodium Chloride 10 ml 01/22/19 22:00 01/29/19 09:58 Sodium Chloride Flush Syringe 10 Ml IV 10 ml BID LUCIO Administration Sodium Chloride 10 ml 01/22/19 12:23 01/28/19 21:47 Sodium Chloride Flush Syringe 10 Ml IV 10 ml PRN PRN Administration LINE FLUSH Nutrition/Malnutrition Assess - Dietary Evaluation Nutrition/Malnutrition Findings: Nutrition Notes Start: 01/23/19 10:56 Freq: Status: Active Protocol: Document 01/27/19 15:27 RM (Rec: 01/27/19 15:33 RM [id number]) Nutrition Notes Initial or Follow up Reassessment Current Diagnosis Decubitus(Pressure Ulcer), Diabetes,Hypertension,Stroke Other Pertinent Diagnosis ESRD on HD (T/R/Sa), PVD, Pneu , R & L foot wounds Current Diet Renal Labs/Tests Reviewed Pertinent Medications Reviewed Height 5 ft 6 in Weight 58.7 kg [place] Body Weight (kg) 59.09 BMI 20.9 Subjective/Other Information Pt moved from ICU to floor. Pt not in room at time of visit. Per tech pt has been eating 100% of her meals. Percent of energy/protein needs met: 100%/100% Burn Absent Trauma Absent #1 Nutrition Diagnosis Inadequate oral intake As Evidenced by Signs and Symptoms pt meeting 100% of calorie and protein needs Diagnosis Progress(for reassessment Resolved documentation) Is patient on ventilator? No Is Patient Ambulatory and/or Out of Bed No REE-([facility]-confined to bed) [phone] Calculation Used for Recommendations [facility] Additional Notes Protein Needs: 70-76g (1.2-1. 3g/kg) Fluid Needs: 1 ml/kcal Nutrition Intervention Change Diet Order: Continue current Goal #1 Continue to meet at least 75% of calorie and protein needs via PO intakes Anticipated Discharge Needs: Renal diet Follow-Up By: 02/05/19 Additional Comments Follow for stable intakes
--- NOTE | 2019-01-29 13:51 | Progress Note ---
Assessment and Plan Patient sleeping at this time. Not responding to verbal stimuli. Patient not keeping her o2 as recommended. She is presently on room air.O2 saturation 96%. No acute respiratory distress. - Patient Problems (1) Acute respiratory failure Current Visit: Yes Status: Acute Qualifiers: Respiratory failure complication: unspecified whether with hypoxia or hypercapnia Qualified Code(s): J96.00 - Acute respiratory failure, unspecified whether with hypoxia or hypercapnia Plan to address problem: O2 2 litres via nasal canula. Albuterol aerosol treatments q 6 hours prn for shortness of breath. Continue S/C Lovenox. Continue Famotidine. (2) Cardiac arrest Current Visit: Yes Status: Acute Plan to address problem: Resucitated successfully. (3) Diabetes Current Visit: Yes Status: Acute Plan to address problem: Management as per primary care. (4) ESRD needing dialysis Current Visit: Yes Status: Acute Plan to address problem: Management as per nephrology. (5) HTN (hypertension) Current Visit: Yes Status: Acute Qualifiers: Hypertension type: essential hypertension Qualified Code(s): I10 - Essential (primary) hypertension Plan to address problem: Management as per primary care. (6) Pulmonary hypertension Current Visit: Yes Status: Acute Plan to address problem: Continue o2 supplementation. PFTs as out patient. Recommend to obtain Echocardiogram. Subjective Date of service: 01/29/19 Principal diagnosis: Acute hypoxemic resp failure; S/P cardiac arrest; ESRD on dialysis; DM II Interval history: Patient sleeping at this time. Not responding to verbal stimuli. Patient not keeping her o2 as recommended. She is presently on room air.O2 saturation 96%. No acute respiratory distress. Objective Vital Signs - 12hr 01/29/19 01/29/19 01/29/19 04:30 04:50 07:17 Temperature 99.0 F 98.4 F Pulse Rate 81 76 Respiratory 20 18 Rate Blood Pressure 124/60 132/60 O2 Sat by Pulse 94 Oximetry 01/29/19 01/29/19 11:05 11:22 Temperature 98.1 F Pulse Rate Respiratory 18 Rate Blood Pressure 123/60 O2 Sat by Pulse 96 Oximetry Constitutional: no acute distress, alert, other (elderly looking AAF, normocephalic resting in bed ) Eyes: non-icteric ENT: oropharynx moist Neck: supple, no lymphadenopathy, no JVD, other (no thyromegaly) Effort: normal Ascultation: Bilateral: diminished breath sounds, rhonchi, other (chest pain reproducible on palpation of chest wall) Percussion: Bilateral: not dull Cardiovascular: regular rate and rhythm, murmur noted (systolic), other (S1,S2) Gastrointestinal: normoactive bowel sounds, soft, non-tender, non-distended Integumentary: rash Extremities: no cyanosis, no edema, pulses normal, no ischemia or petechiae Neurologic: normal mental status, non-focal exam, pupils equal and round, CN II- XII normal, motor strength normal and Psychiatric: mood appropriate, affect normal CBC and BMP: 01/28/19 14:08 01/25/19 05:22 ABG, PT/INR, D-dimer: ABG POC ABG pH 7.450 (7.35-7.45) 01/25/19 12:14 POC ABG pCO2 37.3 (35-45) 01/25/19 12:14 POC ABG pO2 110 (80-105) H 01/25/19 12:14 POC ABG HCO3 25.9 (22-26 mml/L) 01/25/19 12:14 POC ABG Total CO2 27 (23-27mmol/L) 01/25/19 12:14 POC ABG O2 Sat 99 01/25/19 12:14 Abnormal lab findings: Abnormal Labs 01/22/19 01/22/19 01/22/19 09:27 11:09 15:07 WBC RBC Hgb Hct MCH RDW Plt Count Lymph % (Auto) [place] % (Auto) Lymph # Seg Neutrophils % Monocytes % (Manual) Seg Neutrophils # POC ABG pO2 207 H Potassium Chloride Carbon Dioxide BUN Creatinine Glucose POC Glucose 113 H 134 H Calcium Magnesium AST ALT Alkaline Phosphatase CK-MB (CK-2) Rel Index Troponin T NT-Pro-B Natriuret Pep Total Protein Albumin HDL Cholesterol Acetaminophen 01/22/19 01/22/19 01/22/19 15:35 17:40 Unknown WBC RBC Hgb Hct MCH 26 L RDW 17.3 H Plt Count Lymph % (Auto) [place] % (Auto) Lymph # Seg Neutrophils % Monocytes % (Manual) 11.0 H Seg Neutrophils # POC ABG pO2 Potassium Chloride Carbon Dioxide BUN Creatinine Glucose POC Glucose 121 H Calcium Magnesium AST ALT Alkaline Phosphatase CK-MB (CK-2) Rel Index Troponin T NT-Pro-B Natriuret Pep Total Protein Albumin HDL Cholesterol Acetaminophen < 5.0 L 01/22/19 01/23/19 01/23/19 Unknown 01:26 03:48 WBC RBC Hgb Hct MCH RDW Plt Count Lymph % (Auto) [place] % (Auto) Lymph # Seg Neutrophils % Monocytes % (Manual) Seg Neutrophils # POC ABG pO2 138 H Potassium Chloride 96.2 L Carbon Dioxide BUN 20 H Creatinine 2.4 H Glucose 150 H POC Glucose 108 H Calcium Magnesium AST 109 H ALT 63 H Alkaline Phosphatase 227 H CK-MB (CK-2) Rel Index Troponin T 0.133 H* NT-Pro-B Natriuret Pep Total Protein Albumin 3.8 L HDL Cholesterol 62 H Acetaminophen 01/23/19 01/23/19 01/23/19 04:29 04:29 17:11 WBC RBC 3.27 L Hgb 8.8 L Hct 26.8 L D MCH 27 L RDW 17.5 H Plt Count 100 L Lymph % (Auto) 9.1 L [place] % (Auto) 11.4 H Lymph # 0.4 L Seg Neutrophils % 78.3 H Monocytes % (Manual) Seg Neutrophils # POC ABG pO2 Potassium 3.0 L D Chloride 109.2 H Carbon Dioxide 18 L D BUN 23 H Creatinine 2.6 H Glucose POC Glucose 63 L Calcium 6.4 L D Magnesium 1.50 L AST ALT Alkaline Phosphatase CK-MB (CK-2) Rel Index Troponin T NT-Pro-B Natriuret Pep 44465 H Total Protein 4.7 L D Albumin 2.2 L HDL Cholesterol Acetaminophen 01/23/19 01/24/19 01/24/19 19:49 02:06 03:20 WBC RBC Hgb Hct MCH RDW Plt Count Lymph % (Auto) [place] % (Auto) Lymph # Seg Neutrophils % Monocytes % (Manual) Seg Neutrophils # POC ABG pO2 113 H 114 H Potassium Chloride Carbon Dioxide BUN Creatinine Glucose POC Glucose 173 H Calcium Magnesium AST ALT Alkaline Phosphatase CK-MB (CK-2) Rel Index Troponin T NT-Pro-B Natriuret Pep Total Protein Albumin HDL Cholesterol Acetaminophen 01/24/19 01/24/19 01/24/19 05:25 05:40 05:40 WBC RBC Hgb Hct MCH 26 L RDW 18.3 H Plt Count 109 L Lymph % (Auto) [place] % (Auto) Lymph # Seg Neutrophils % Monocytes % (Manual) Seg Neutrophils # POC ABG pO2 Potassium Chloride Carbon Dioxide BUN 37 H Creatinine 3.9 H Glucose 142 H POC Glucose 150 H Calcium 8.2 L D Magnesium 2.70 H AST ALT Alkaline Phosphatase CK-MB (CK-2) Rel Index Troponin T NT-Pro-B Natriuret Pep Total Protein Albumin HDL Cholesterol Acetaminophen 01/24/19 01/24/19 01/24/19 11:34 17:32 23:36 WBC RBC Hgb Hct MCH RDW Plt Count Lymph % (Auto) [place] % (Auto) Lymph # Seg Neutrophils % Monocytes % (Manual) Seg Neutrophils # POC ABG pO2 Potassium Chloride Carbon Dioxide BUN Creatinine Glucose POC Glucose 143 H 174 H 106 H Calcium Magnesium AST ALT Alkaline Phosphatase CK-MB (CK-2) Rel Index Troponin T NT-Pro-B Natriuret Pep Total Protein Albumin HDL Cholesterol Acetaminophen 01/25/19 01/25/19 01/25/19 05:21 05:22 05:22 WBC 13.2 H RBC Hgb Hct MCH 26 L RDW 17.7 H Plt Count 120 L Lymph % (Auto) 3.3 L [place] % (Auto) Lymph # 0.4 L Seg Neutrophils % 90.0 H Monocytes % (Manual) Seg Neutrophils # 11.8 H POC ABG pO2 Potassium Chloride 95.7 L Carbon Dioxide BUN 21 H Creatinine 3.2 H Glucose 112 H POC Glucose 111 H Calcium 8.0 L Magnesium AST ALT Alkaline Phosphatase 131 H CK-MB (CK-2) Rel Index Troponin T NT-Pro-B Natriuret Pep Total Protein Albumin 3.0 L HDL Cholesterol Acetaminophen 01/25/19 01/25/19 01/25/19 11:53 12:14 17:26 WBC RBC Hgb Hct MCH RDW Plt Count Lymph % (Auto) [place] % (Auto) Lymph # Seg Neutrophils % Monocytes % (Manual) Seg Neutrophils # POC ABG pO2 110 H Potassium Chloride Carbon Dioxide BUN Creatinine Glucose POC Glucose 113 H 109 H Calcium Magnesium AST ALT Alkaline Phosphatase CK-MB (CK-2) Rel Index Troponin T NT-Pro-B Natriuret Pep Total Protein Albumin HDL Cholesterol Acetaminophen 01/25/19 01/26/19 01/26/19 23:50 12:32 13:15 WBC RBC Hgb Hct MCH RDW Plt Count Lymph % (Auto) [place] % (Auto) Lymph # Seg Neutrophils % Monocytes % (Manual) Seg Neutrophils # POC ABG pO2 Potassium Chloride Carbon Dioxide BUN Creatinine Glucose POC Glucose 254 H 138 H Calcium Magnesium AST ALT Alkaline Phosphatase CK-MB (CK-2) Rel Index 4.3 H Troponin T 0.227 H* D NT-Pro-B Natriuret Pep Total Protein Albumin HDL Cholesterol Acetaminophen 01/26/19 01/27/19 01/27/19 21:07 08:51 12:16 WBC RBC Hgb Hct MCH RDW Plt Count Lymph % (Auto) [place] % (Auto) Lymph # Seg Neutrophils % Monocytes % (Manual) Seg Neutrophils # POC ABG pO2 Potassium Chloride Carbon Dioxide BUN Creatinine Glucose POC Glucose 218 H 120 H 211 H Calcium Magnesium AST ALT Alkaline Phosphatase CK-MB (CK-2) Rel Index Troponin T NT-Pro-B Natriuret Pep Total Protein Albumin HDL Cholesterol Acetaminophen 01/27/19 01/27/19 01/28/19 17:22 20:58 07:06 WBC RBC Hgb Hct MCH RDW Plt Count Lymph % (Auto) [place] % (Auto) Lymph # Seg Neutrophils % Monocytes % (Manual) Seg Neutrophils # POC ABG pO2 Potassium Chloride Carbon Dioxide BUN Creatinine Glucose POC Glucose 289 H 215 H 111 H Calcium Magnesium AST ALT Alkaline Phosphatase CK-MB (CK-2) Rel Index Troponin T NT-Pro-B Natriuret Pep Total Protein Albumin HDL Cholesterol Acetaminophen 01/28/19 01/28/19 01/28/19 14:08 16:05 22:25 WBC RBC Hgb Hct MCH 26 L RDW 17.6 H Plt Count Lymph % (Auto) 8.6 L [place] % (Auto) 8.8 H Lymph # 0.6 L Seg Neutrophils % 80.5 H Monocytes % (Manual) Seg Neutrophils # POC ABG pO2 Potassium Chloride Carbon Dioxide BUN Creatinine Glucose POC Glucose 179 H 191 H Calcium Magnesium AST ALT Alkaline Phosphatase CK-MB (CK-2) Rel Index Troponin T NT-Pro-B Natriuret Pep Total Protein Albumin HDL Cholesterol Acetaminophen 01/29/19 01/29/19 08:20 11:27 WBC RBC Hgb Hct MCH RDW Plt Count Lymph % (Auto) [place] % (Auto) Lymph # Seg Neutrophils % Monocytes % (Manual) Seg Neutrophils # POC ABG pO2 Potassium Chloride Carbon Dioxide BUN Creatinine Glucose POC Glucose 140 H 247 H Calcium Magnesium AST ALT Alkaline Phosphatase CK-MB (CK-2) Rel Index Troponin T NT-Pro-B Natriuret Pep Total Protein Albumin HDL Cholesterol Acetaminophen Chest x-ray: report reviewed (Reported no acute infiltrates or congestion.), image reviewed Allied health notes reviewed: nursing
[2019-01-29] MEDS: LOVENOX SUB-Q SCH (21:26)
[2019-01-29] MEDS: PRAVACHOL PO SCH (21:26)
[2019-01-30] MEDS: HumaLOG SUB-Q SCH ×3 (07:50→17:11)
[2019-01-30] MEDS: MORPHINE IV PRN ×3 (08:49→21:00)
[2019-01-30] MEDS: PLAVIX PO SCH (10:02)
[2019-01-30] MEDS: TOPROL XL PO SCH (10:02)
[2019-01-30] MEDS: FERROUS SULFATE FEEDTUBE SCH (10:02)
[2019-01-30] MEDS: HALFPRIN EC PO SCH (10:03)
[2019-01-30] MEDS: ZESTRIL PO SCH (10:03)
[2019-01-30] MEDS: PEPCID PO SCH (10:03)
[2019-01-30] MEDS: SODIUM CHLORIDE FLUSH SYRINGE 10 ML IV SCH ×2 (10:03→21:02)
--- NOTE | 2019-01-30 12:37 | Progress Note ---
Assessment and Plan - Patient Problems (1) Cardiac arrest Current Visit: Yes Status: Acute Plan to address problem: Continue management per heating technician. ICD placement planned for Thursday (2) ESRD needing dialysis Current Visit: Yes Status: Acute Plan to address problem: Continue hemodialysis on a Thursday, Thursday and Thursday schedule. (3) Anemia in chronic kidney disease Current Visit: No Status: Acute Plan to address problem: Continue Erythropoetin on dialysis (4) Chronic systolic heart failure Current Visit: No Status: Acute Plan to address problem: Dilated nonischemic cardiomyopathy with EF 10-15% 12/2018; noncompliant with outpatient lifevest. For ICD placement on Thursday. 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 Follow blood pressure on current medications Subjective Date of service: 01/30/19 Principal diagnosis: Acute hypoxemic resp failure; S/P cardiac arrest; ESRD on dialysis; DM II Interval history: Patient seen lying in bed. "I feel better today. I must have slept well last night." Son at bedside Objective - Exam Narrative Exam: Elderly -[place] female lying in bed in no acute distress HEENT: NCAT, pink oral mucous membrane Neck: Supple, no venous distention CVS: S1S2 RRR with no murmur, rub or gallop Chest: Clear to auscultation Abdomen: Protuberant, soft, nontender, no organomegaly, bowel sounds are present Extremities: No edema, right upper extremity AV fistula, swelling of the right upper extremity Neuro: Awake, alert no focal deficits - Vital Signs Vital signs: Vital Signs - 12hr 01/30/19 01/30/19 01/30/19 01:45 04:06 04:10 Temperature 97.6 F 98.4 F Pulse Rate 70 73 72 Respiratory 22 Rate Blood Pressure 134/70 Blood Pressure 130/52 [Left] O2 Sat by Pulse 92 95 Oximetry 01/30/19 08:17 Temperature Pulse Rate 58 L Respiratory 18 Rate Blood Pressure 128/80 Blood Pressure [Left] O2 Sat by Pulse 67 L Oximetry - Lab 01/28/19 14:08 01/25/19 05:22 Most recent lab results Calcium 8.0 mg/dL (8.4-10.2) L 01/25/19 05:22 Magnesium 2.00 mg/dL (1.7-2.3) 01/25/19 05:22 Medications & Allergies - Medications Allergies/Adverse Reactions: Allergies phenytoin sodium [From Dilantin] Allergy (Verified 05/08/16 07:07) Anaphylaxis phenytoin sodium extended [From Dilantin] Allergy (Verified 05/08/16 07:07) Anaphylaxis Home Medications: Home Medications Medication Instructions Recorded Confirmed Last Taken Type Ferrous Sulfate [Iron 325 MG] 325 mg PO DAILY 01/04/19 01/22/19 01/03/19 History Aspirin EC 81 mg PO QDAY #30 tablet. 01/07/19 01/22/19 Unknown Rx Clopidogrel [Plavix] 75 mg PO QDAY #30 tablet 01/07/19 01/22/19 Unknown Rx Losartan [Cozaar] 100 mg PO DAILY 30 Days #30 tablet 01/07/19 01/22/19 Unknown Rx Metoprolol [Lopressor TAB] 50 mg PO BID #60 tablet 01/07/19 01/22/19 Unknown Rx Pravastatin [Pravachol] 20 mg PO QHS #30 tablet 01/07/19 01/22/19 Unknown Rx Active Medications: Generic Name Dose Route Start Last Admin Trade Name Freq PRN Reason Stop Dose Admin Albuterol 2.5 mg 01/22/19 12:23 01/25/19 12:40 Proventil IH 2.5 mg Q3H PRN Administration Shortness Of Breath Aspirin 81 mg 01/23/19 10:00 01/30/19 10:03 Halfprin Ec PO 81 mg QDAY LUCIO Administration Clopidogrel Bisulfate 75 mg 01/23/19 10:00 01/30/19 10:02 Plavix PO 75 mg QDAY LUCIO Administration Sodium Chloride 1,000 ml/ 0 ml 01/31/19 06:00 Vancomycin HCl 1,000 mg IR 01/31/19 06:01 INTRAOP ONE Dextrose 50 ml 01/23/19 06:43 D50w (25gm) Syringe IV PRN PRN Hypoglycemia Enoxaparin Sodium 30 mg 01/24/19 22:00 01/29/19 21:26 Lovenox SUB-Q 30 mg QDAY@2200 LUCIO Administration Epoetin Gilberto 10,000 unit 01/26/19 12:54 01/28/19 12:36 Procrit SUB-Q 10,000 unit ALHAJI LUCIO Administration Famotidine 20 mg 01/24/19 10:00 01/30/19 10:03 Pepcid PO 20 mg DAILY LUCIO Administration Ferrous Sulfate 308 mg 01/24/19 10:00 01/30/19 10:02 Ferrous Sulfate FEEDTUBE 308 mg DAILY LUCIO Administration Guaifenesin 10 ml 01/28/19 23:54 01/30/19 10:02 Guaifenesin Dm Syrup PO 10 ml Q4H PRN Administration Cough Hydrophilic Ointment 1 applic 01/22/19 09:33 Vaseline Lip Therapy TP Q2HR PRN Dry Lips Sodium Chloride 100 mls @ 999 mls/hr 01/24/19 16:49 Nacl 0.9% IV ALHAJI PRN Hypotension Insulin Human Lispro 0 unit 01/26/19 11:30 01/29/19 23:25 Humalog SUB-Q Not Given ACHS [facility] Protocol Lisinopril 2.5 mg 01/28/19 10:00 01/30/19 10:03 Zestril PO 2.5 mg QDAY LUCIO Administration Metoprolol Succinate 50 mg 01/28/19 10:00 01/30/19 10:02 Toprol Xl PO 50 mg QDAY LUCIO Administration Morphine Sulfate 1 mg 01/26/19 12:06 01/30/19 08:49 Morphine IV 1 mg Q4H PRN Administration Pain, Moderate (4-6) Multi-Ingred Cream/Lotion/Oil/Oint 1 applic 01/22/19 09:33 Artificial Tears Ophth Oint OU Q4HR PRN Dry Eye(s) Pravastatin Sodium 20 mg 01/22/19 22:00 01/29/19 21:26 Pravachol PO 20 mg QHS LUCIO Administration Sodium Chloride 10 ml 01/22/19 22:00 01/30/19 10:03 Sodium Chloride Flush Syringe 10 Ml IV 10 ml BID LUCIO Administration Sodium Chloride 10 ml 01/22/19 12:23 01/28/19 21:47 Sodium Chloride Flush Syringe 10 Ml IV 10 ml PRN PRN Administration LINE FLUSH
--- NOTE | 2019-01-30 12:59 | Progress Note ---
Assessment and Plan - Patient Problems (1) Cardiopulmonary arrest Current Visit: Yes Status: Acute Plan to address problem: Patient is stable following an out of hospital cardiopulmonary arrest. ICD implant has been scheduled for Thursday. Subjective Date of service: 01/30/19 Principal diagnosis: Acute hypoxemic resp failure; S/P cardiac arrest; ESRD on dialysis; DM II Interval history: Patient is comfortable, no new cardiac complaints. Objective Vital Signs Temp Pulse Resp BP BP Pulse Ox 01/30/19 08:17 58 L 18 128/80 67 L 01/30/19 04:10 72 95 01/30/19 04:06 98.4 F 73 22 134/70 92 01/30/19 01:45 97.6 F 70 130/52 01/29/19 22:30 72 01/29/19 19:48 97.8 F 74 20 116/58 93 01/29/19 18:42 98.1 F 18 105/50 01/29/19 16:00 85 - Physical Examination General: No Apparent Distress HEENT: Positive: PERRL Neck: Positive: trachea midline Cardiac: Positive: Reg Rate and Rhythm Lungs: Positive: Decreased Breath Sounds Neuro: Positive: Grossly Intact Abdomen: Positive: Soft Skin: Positive: Clear Extremities: Absent: edema (left transmetatarsal amputation) - Allied health notes Allied health notes reviewed: nursing
--- NOTE | 2019-01-30 13:36 | Progress Note ---
Assessment and Plan Assessment and plan: --Dialated CMP; EF 10-15% anti-failure medications input and output monitoring Noncompliant with cardiac vest, cardiology following possible AICD placement tomorrow -- s/p Cardiac arrest; outside the hospital S/P ACLS with return of perfusing rhythm, Cardiology following, Cardiac cah on 01/31/2019 -- Acute respiratory failure with hypoxia; S/P,extubated On nasal cannula oxygen , O2 sats titrated to more than 90% Nebulizers supportive care, evaluation for home oxygen -- Pneumonia; probable community-acquired Pneumonia protocol, IV antibiotic, follow blood cultures, Oxygen titrate O2 sats to more than 90% --Mild encephalopathy/probably hypoxic supportive care, CT head without contrast, EEG Neurology consult, supportive care --Non-ST elevation OK continue cardiac medications, heart cath prior to discharge -- ESRD needing dialysis Nephrology following, HD per schedule, monitor electrolytes --HTN (hypertension) Monitor BP q shift, Pt currently hypotensive S/P cardiac arrest. -- Diabetes ADA diet, when/if awake alert, insulin, accu check,hypoglycemia protocol -- Pulmonary hypertension supportive care, continue current care, wean vent as tolerated, -- Hypokalemia corrected -- Anemia of chronic renal disease Monitor and transfuse as needed -- PVD: Continue current management -- DVT prophylaxis SCD to BLE while in bed, prophylactic heparin Physical therapy, follow neuro consult and recommendations Possible discharge in 1-2 days with home health versus a rehabilitation Plan of care reviewed with the patient and her nurse and case management History Interval history: Patient seen and examined and medical records reviewed No new events reported by the nursing staff Patient is alert awake oriented 3 Schedule for ICD placement tomorrow Hospitalist Physical - Constitutional Vitals: Temp Pulse Resp BP Pulse Ox 98.4 F 72 16 98/47 100 01/30/19 04:06 01/30/19 12:36 01/30/19 12:36 01/30/19 12:36 01/30/19 12:36 General appearance: Present: no acute distress, well-nourished - EENT Eyes: Present: PERRL, EOM intact - Neck Neck: Present: supple, normal ROM - Respiratory Respiratory effort: normal Respiratory: bilateral: diminished, negative: rales, rhonchi, wheezing - Cardiovascular Rhythm: regular Heart Sounds: Present: S1 & S2 - Extremities Extremities: no ischemia, No edema - Abdominal General gastrointestinal: soft, non-tender, non-distended, normal bowel sounds - Integumentary Integumentary: Present: clear, warm - Psychiatric Psychiatric: appropriate mood/affect, cooperative - Neurologic Neurologic: CNII-XII intact, moves all extremities Results - Labs CBC & Chem 7: 01/28/19 14:08 01/25/19 05:22 Labs: Laboratory Last Values WBC 6.6 K/mm3 (4.5-11.0) 01/28/19 14:08 RBC 3.98 M/mm3 (3.65-5.03) 01/28/19 14:08 Hgb 10.4 gm/dl (10.1-14.3) 01/28/19 14:08 Hct 31.7 % (30.3-42.9) 01/28/19 14:08 MCV 80 fl (79-97) 01/28/19 14:08 MCH 26 pg (28-32) L 01/28/19 14:08 MCHC 33 % (30-34) 01/28/19 14:08 RDW 17.6 % (13.2-15.2) H 01/28/19 14:08 Plt Count 161 K/mm3 (140-440) 01/28/19 14:08 Lymph % (Auto) 8.6 % (13.4-35.0) L 01/28/19 14:08 [place] % (Auto) 8.8 % (0.0-7.3) H 01/28/19 14:08 Eos % (Auto) 1.6 % (0.0-4.3) 01/28/19 14:08 Baso % (Auto) 0.5 % (0.0-1.8) 01/28/19 14:08 Lymph # 0.6 K/mm3 (1.2-5.4) L 01/28/19 14:08 [place] # 0.6 K/mm3 (0.0-0.8) 01/28/19 14:08 Eos # 0.1 K/mm3 (0.0-0.4) 01/28/19 14:08 Baso # 0.0 K/mm3 (0.0-0.1) 01/28/19 14:08 Add Manual Diff Complete 01/22/19 Unknown Total Counted 100 01/22/19 Unknown Seg Neutrophils % 80.5 % (40.0-70.0) H 01/28/19 14:08 Seg Neuts % (Manual) 60.0 % (40.0-70.0) 01/22/19 Unknown 1.0 % 01/22/19 Unknown 25.0 % (13.4-35.0) 01/22/19 Unknown Reactive Lymphs % (Man) 0 % 01/22/19 Unknown 11.0 % (0.0-7.3) H 01/22/19 Unknown 0 % (0.0-4.3) 01/22/19 Unknown 0 % (0.0-1.8) 01/22/19 Unknown 3.0 % 01/22/19 Unknown 0 % 01/22/19 Unknown 0 % 01/22/19 Unknown 0 % 01/22/19 Unknown Nucleated RBC % Not Reportable 01/22/19 Unknown Seg Neutrophils # 5.3 K/mm3 (1.8-7.7) 01/28/19 14:08 Seg Neutrophils # Man 4.3 K/mm3 (1.8-7.7) 01/22/19 Unknown Band Neutrophils # 0.1 K/mm3 01/22/19 Unknown 1.8 K/mm3 (1.2-5.4) 01/22/19 Unknown Abs React Lymphs (Man) 0.0 K/mm3 01/22/19 Unknown 0.8 K/mm3 (0.0-0.8) 01/22/19 Unknown 0.0 K/mm3 (0.0-0.4) 01/22/19 Unknown 0.0 K/mm3 (0.0-0.1) 01/22/19 Unknown 0.2 K/mm3 01/22/19 Unknown 0.0 K/mm3 01/22/19 Unknown 0.0 K/mm3 01/22/19 Unknown Blast Cells # 0.0 K/mm3 01/22/19 Unknown WBC Morphology Not Reportable 01/22/19 Unknown Hypersegmented Neuts Not Reportable 01/22/19 Unknown Hyposegmented Neuts Not Reportable 01/22/19 Unknown Hypogranular Neuts Not Reportable 01/22/19 Unknown Not Reportable 01/22/19 Unknown Not Reportable 01/22/19 Unknown Not Reportable 01/22/19 Unknown Not Reportable 01/22/19 Unknown Not Reportable 01/22/19 Unknown Not Reportable 01/22/19 Unknown Consistent w auto 01/22/19 Unknown Not Reportable 01/22/19 Unknown Plt Clumps, EDTA Not Reportable 01/22/19 Unknown Few 01/22/19 Unknown Not Reportable 01/22/19 Unknown Not Reportable 01/22/19 Unknown Plt Morphology Comment Not Reportable 01/22/19 Unknown RBC Morphology Not Reportable 01/22/19 Unknown Dimorphic RBCs Not Reportable 01/22/19 Unknown Not Reportable 01/22/19 Unknown Not Reportable 01/22/19 Unknown Not Reportable 01/22/19 Unknown Not Reportable 01/22/19 Unknown Not Reportable 01/22/19 Unknown Not Reportable 01/22/19 Unknown Not Reportable 01/22/19 Unknown Not Reportable 01/22/19 Unknown Not Reportable 01/22/19 Unknown Not Reportable 01/22/19 Unknown Few 01/22/19 Unknown Not Reportable 01/22/19 Unknown Not Reportable 01/22/19 Unknown Not Reportable 01/22/19 Unknown Not Reportable 01/22/19 Unknown Not Reportable 01/22/19 Unknown Not Reportable 01/22/19 Unknown Not Reportable 01/22/19 Unknown Few 01/22/19 Unknown Acanthocytes (Spur) Not Reportable 01/22/19 Unknown Rouleaux Not Reportable 01/22/19 Unknown Not Reportable 01/22/19 Unknown Rare 01/22/19 Unknown Not Reportable 01/22/19 Unknown Not Reportable 01/22/19 Unknown Hem Pathologist Commnt No 01/22/19 Unknown POC ABG pH 7.450 (7.35-7.45) 01/25/19 12:14 POC ABG pCO2 37.3 (35-45) 01/25/19 12:14 POC ABG pO2 110 (80-105) H 01/25/19 12:14 POC ABG HCO3 25.9 (22-26 mml/L) 01/25/19 12:14 POC ABG Total CO2 27 (23-27mmol/L) 01/25/19 12:14 POC ABG O2 Sat 99 01/25/19 12:14 POC ABG Base Excess 2 ((-2) - (+3)mmol/L) 01/25/19 12:14 30 % 01/25/19 12:14 Sodium 137 mmol/L (137-145) 01/25/19 05:22 Potassium 4.0 mmol/L (3.6-5.0) 01/25/19 05:22 Chloride 95.7 mmol/L (98-107) L 01/25/19 05:22 Carbon Dioxide 26 mmol/L (22-30) 01/25/19 05:22 19 mmol/L 01/25/19 05:22 BUN 21 mg/dL (7-17) H 01/25/19 05:22 3.2 mg/dL (0.7-1.2) H 01/25/19 05:22 Estimated GFR 17 ml/min 01/25/19 05:22 7 % 01/25/19 05:22 Glucose 112 mg/dL (65-100) H 01/25/19 05:22 POC Glucose 182 (70-105) H 01/30/19 11:38 Lactic Acid 1.70 mmol/L (0.7-2.0) 01/22/19 15:35 Calcium 8.0 mg/dL (8.4-10.2) L 01/25/19 05:22 Magnesium 2.00 mg/dL (1.7-2.3) 01/25/19 05:22 0.60 mg/dL (0.1-1.2) 01/25/19 05:22 AST 12 units/L (5-40) 01/25/19 05:22 ALT 15 units/L (7-56) 01/25/19 05:22 131 units/L (35-129) H 01/25/19 05:22 41 units/L (30-135) 01/26/19 13:15 CK-MB (CK-2) 1.8 ng/mL (0.0-4.0) 01/26/19 13:15 CK-MB (CK-2) Rel Index 4.3 (0-4) H 01/26/19 13:15 0.227 ng/mL (0.00-0.029) H* D 01/26/19 13:15 1.30 mg/dL (0.00-1.30) 01/22/19 15:35 NT-Pro-B Natriuret Pep 02032 pg/mL (0-900) H 01/23/19 04:29 6.7 g/dL (6.3-8.2) D 01/25/19 05:22 3.0 g/dL (3.9-5) L 01/25/19 05:22 0.8 % 01/25/19 05:22 Triglycerides 111 mg/dL (2-149) 01/22/19 Unknown Cholesterol 153 mg/dL (50-199) 01/22/19 Unknown 79 mg/dL (50-130) 01/22/19 Unknown 62 mg/dL (40-59) H 01/22/19 Unknown 2.46 % 01/22/19 Unknown Random Vancomycin 9.3 ug/mL (0-40.0) 01/25/19 05:22 Acetaminophen < 5.0 ug/mL (10.0-30.0) L 01/22/19 15:35 Hepatitis A IgM Ab Non-reactive (NonReactive) 01/22/19 15:35 Hep Bs Antigen Non-reactive (Negative) 01/22/19 15:35 Hep B Core IgM Ab Non-reactive (NonReactive) 01/22/19 15:35 Non-reactive (NonReactive) 01/22/19 15:35 Blood Type B POSITIVE 01/22/19 11:53 WOODY Antibody Screen Negative 01/22/19 11:53 Active Medications - Current Medications Current Medications: Generic Name Dose Route Start Last Admin Trade Name Freq PRN Reason Stop Dose Admin Albuterol 2.5 mg 01/22/19 12:23 01/25/19 12:40 Proventil IH 2.5 mg Q3H PRN Administration Shortness Of Breath Aspirin 81 mg 01/23/19 10:00 01/30/19 10:03 Halfprin Ec PO 81 mg QDAY LUCIO Administration Clopidogrel Bisulfate 75 mg 01/23/19 10:00 01/30/19 10:02 Plavix PO 75 mg QDAY LUCIO Administration Sodium Chloride 1,000 ml/ 0 ml 01/31/19 06:00 Vancomycin HCl 1,000 mg IR 01/31/19 06:01 INTRAOP ONE Dextrose 50 ml 01/23/19 06:43 D50w (25gm) Syringe IV PRN PRN Hypoglycemia Enoxaparin Sodium 30 mg 01/24/19 22:00 01/29/19 21:26 Lovenox SUB-Q 30 mg QDAY@2200 LUCIO Administration Epoetin Gilberto 10,000 unit 01/26/19 12:54 01/28/19 12:36 Procrit SUB-Q 10,000 unit ALHAJI LUCIO Administration Famotidine 20 mg 01/24/19 10:00 01/30/19 10:03 Pepcid PO 20 mg DAILY LUCIO Administration Ferrous Sulfate 308 mg 01/24/19 10:00 01/30/19 10:02 Ferrous Sulfate FEEDTUBE 308 mg DAILY LUCIO Administration Guaifenesin 10 ml 01/28/19 23:54 01/30/19 10:02 Guaifenesin Dm Syrup PO 10 ml Q4H PRN Administration Cough Hydrophilic Ointment 1 applic 01/22/19 09:33 Vaseline Lip Therapy TP Q2HR PRN Dry Lips Sodium Chloride 100 mls @ 999 mls/hr 01/24/19 16:49 Nacl 0.9% IV ALHAJI PRN Hypotension Insulin Human Lispro 0 unit 01/26/19 11:30 01/29/19 23:25 Humalog SUB-Q Not Given ACHS [facility] Protocol Lisinopril 2.5 mg 01/28/19 10:00 01/30/19 10:03 Zestril PO 2.5 mg QDAY [facility] Administration Metoprolol Succinate 50 mg 01/28/19 10:00 01/30/19 10:02 Toprol Xl PO 50 mg QDAY LUCIO Administration Morphine Sulfate 1 mg 01/26/19 12:06 01/30/19 08:49 Morphine IV 1 mg Q4H PRN Administration Pain, Moderate (4-6) Multi-Ingred Cream/Lotion/Oil/Oint 1 applic 01/22/19 09:33 Artificial Tears Ophth Oint OU Q4HR PRN Dry Eye(s) Pravastatin Sodium 20 mg 01/22/19 22:00 01/29/19 21:26 Pravachol PO 20 mg QHS LUCIO Administration Sodium Chloride 10 ml 01/22/19 22:00 01/30/19 10:03 Sodium Chloride Flush Syringe 10 Ml IV 10 ml BID LUCIO Administration Sodium Chloride 10 ml 01/22/19 12:23 01/28/19 21:47 Sodium Chloride Flush Syringe 10 Ml IV 10 ml PRN PRN Administration LINE FLUSH Nutrition/Malnutrition Assess - Dietary Evaluation Nutrition/Malnutrition Findings: Nutrition Notes Start: 01/23/19 10:56 Freq: Status: Active Protocol: Document 01/27/19 15:27 RM (Rec: 01/27/19 15:33 RM [id number]) Nutrition Notes Initial or Follow up Reassessment Current Diagnosis Decubitus(Pressure Ulcer), Diabetes,Hypertension,Stroke Other Pertinent Diagnosis ESRD on HD (T/R/Sa), PVD, Pneu , R & L foot wounds Current Diet Renal Labs/Tests Reviewed Pertinent Medications Reviewed Height 5 ft 6 in Weight 58.7 kg [place] Body Weight (kg) 59.09 BMI 20.9 Subjective/Other Information Pt moved from ICU to floor. Pt not in room at time of visit. Per tech pt has been eating 100% of her meals. Percent of energy/protein needs met: 100%/100% Burn Absent Trauma Absent #1 Nutrition Diagnosis Inadequate oral intake As Evidenced by Signs and Symptoms pt meeting 100% of calorie and protein needs Diagnosis Progress(for reassessment Resolved documentation) Is patient on ventilator? No Is Patient Ambulatory and/or Out of Bed No REE-([employer] Jeor-confined to bed) [phone] Calculation Used for Recommendations [employer] Additional Notes Protein Needs: 70-76g (1.2-1. 3g/kg) Fluid Needs: 1 ml/kcal Nutrition Intervention Change Diet Order: Continue current Goal #1 Continue to meet at least 75% of calorie and protein needs via PO intakes Anticipated Discharge Needs: Renal diet Follow-Up By: 02/05/19 Additional Comments Follow for stable intakes
[2019-01-30] MEDS: LOVENOX SUB-Q SCH (21:01)
[2019-01-30] MEDS: PRAVACHOL PO SCH (21:01)
--- NOTE | 2019-01-30 21:51 | Progress Note ---
Assessment and Plan atient sleeping at this time. Not responding to verbal stimuli. She is presently on 2 litres o2..O2 saturation 100%. No acute respiratory distress. - Patient Problems (1) Acute respiratory failure Current Visit: Yes Status: Acute Qualifiers: Respiratory failure complication: unspecified whether with hypoxia or hypercapnia Qualified Code(s): J96.00 - Acute respiratory failure, unspecified whether with hypoxia or hypercapnia Plan to address problem: O2 2 litres via nasal canula. Albuterol aerosol treatments q 6 hours prn for shortness of breath. Continue S/C Lovenox. Continue Famotidine. (2) Cardiac arrest Current Visit: Yes Status: Acute Plan to address problem: Resucitated successfully. (3) Diabetes Current Visit: Yes Status: Acute Plan to address problem: Management as per primary care. (4) ESRD needing dialysis Current Visit: Yes Status: Acute Plan to address problem: Management as per nephrology. (5) HTN (hypertension) Current Visit: Yes Status: Acute Qualifiers: Hypertension type: essential hypertension Qualified Code(s): I10 - Essenti al (primary) hypertension Plan to address problem: Management as per primary care. (6) Pulmonary hypertension Current Visit: Yes Status: Acute Plan to address problem: Continue o2 supplementation. PFTs as out patient. Recommend to obtain Echocardiogram. Subjective Date of service: 01/30/19 Principal diagnosis: Acute hypoxemic resp failure; S/P cardiac arrest; ESRD on dialysis; DM II Interval history: Patient sleeping at this time. Not responding to verbal stimuli. She is pre sently on 2 litres o2..O2 saturation 100%. No acute respiratory distress. Objective Vital Signs - 12hr 01/30/19 01/30/19 01/30/19 10:00 12:36 14:00 Temperature Pulse Rate 70 72 73 Respiratory 16 Rate Blood Pressure 98/47 O2 Sat by Pulse 100 Oximetry 01/30/19 01/30/19 01/30/19 16:58 18:00 19:09 Temperature 98.4 F 98.0 F Pulse Rate 76 78 72 Respiratory 16 18 Rate Blood Pressure 98/56 89/45 O2 Sat by Pulse 100 89 Oximetry 01/30/19 01/30/19 01/30/19 20:53 20:54 21:00 Temperature 97.6 F Pulse Rate 75 74 Respiratory 20 20 Rate Blood Pressure 102/49 O2 Sat by Pulse 100 100 Oximetry Constitutional: no acute distress, alert, other (elderly looking AAF, normocephalic resting in bed ) Eyes: non-icteric ENT: oropharynx moist Neck: supple, no lymphadenopathy, no JVD, other (no thyromegaly) Effort: normal Ascultation: Bilateral: diminished breath sounds, rhonchi, other (chest pain reproducible on palpation of chest wall) Percussion: Bilateral: not dull Cardiovascular: regular rate and rhythm, murmur noted (systolic), other (S1,S2) Gastrointestinal: normoactive bowel sounds, soft, non-tender, non-distended Integumentary: rash Extremities: no cyanosis, no edema, pulses normal, no ischemia or petechiae Neurologic: normal mental status, non-focal exam, pupils equal and round, CN II- XII normal, motor strength normal and Psychiatric: mood appropriate, affect normal CBC and BMP: 01/28/19 14:08 01/25/19 05:22 ABG, PT/INR, D-dimer: ABG POC ABG pH 7.450 (7.35-7.45) 01/25/19 12:14 POC ABG pCO2 37.3 (35-45) 01/25/19 12:14 POC ABG pO2 110 (80-105) H 01/25/19 12:14 POC ABG HCO3 25.9 (22-26 mml/L) 01/25/19 12:14 POC ABG Total CO2 27 (23-27mmol/L) 01/25/19 12:14 POC ABG O2 Sat 99 01/25/19 12:14 Abnormal lab findings: Abnormal Labs 01/22/19 01/22/19 01/22/19 09:27 11:09 15:07 WBC RBC Hgb Hct MCH RDW Plt Count Lymph % (Auto) [place] % (Auto) Lymph # Seg Neutrophils % Monocytes % (Manual) Seg Neutrophils # POC ABG pO2 207 H Potassium Chloride Carbon Dioxide BUN Creatinine Glucose POC Glucose 113 H 134 H Calcium Magnesium AST ALT Alkaline Phosphatase CK-MB (CK-2) Rel Index Troponin T NT-Pro-B Natriuret Pep Total Protein Albumin HDL Cholesterol Acetaminophen 01/22/19 01/22/19 01/22/19 15:35 17:40 Unknown WBC RBC Hgb Hct MCH 26 L RDW 17.3 H Plt Count Lymph % (Auto) [place] % (Auto) Lymph # Seg Neutrophils % Monocytes % (Manual) 11.0 H Seg Neutrophils # POC ABG pO2 Potassium Chloride Carbon Dioxide BUN Creatinine Glucose POC Glucose 121 H Calcium Magnesium AST ALT Alkaline Phosphatase CK-MB (CK-2) Rel Index Troponin T NT-Pro-B Natriuret Pep Total Protein Albumin HDL Cholesterol Acetaminophen < 5.0 L 01/22/19 01/23/19 01/23/19 Unknown 01:26 03:48 WBC RBC Hgb Hct MCH RDW Plt Count Lymph % (Auto) [place] % (Auto) Lymph # Seg Neutrophils % Monocytes % (Manual) Seg Neutrophils # POC ABG pO2 138 H Potassium Chloride 96.2 L Carbon Dioxide BUN 20 H Creatinine 2.4 H Glucose 150 H POC Glucose 108 H Calcium Magnesium AST 109 H ALT 63 H Alkaline Phosphatase 227 H CK-MB (CK-2) Rel Index Troponin T 0.133 H* NT-Pro-B Natriuret Pep Total Protein Albumin 3.8 L HDL Cholesterol 62 H Acetaminophen 01/23/19 01/23/19 01/23/19 04:29 04:29 17:11 WBC RBC 3.27 L Hgb 8.8 L Hct 26.8 L D MCH 27 L RDW 17.5 H Plt Count 100 L Lymph % (Auto) 9.1 L [place] % (Auto) 11.4 H Lymph # 0.4 L Seg Neutrophils % 78.3 H Monocytes % (Manual) Seg Neutrophils # POC ABG pO2 Potassium 3.0 L D Chloride 109.2 H Carbon Dioxide 18 L D BUN 23 H Creatinine 2.6 H Glucose POC Glucose 63 L Calcium 6.4 L D Magnesium 1.50 L AST ALT Alkaline Phosphatase CK-MB (CK-2) Rel Index Troponin T NT-Pro-B Natriuret Pep 26672 H Total Protein 4.7 L D Albumin 2.2 L HDL Cholesterol Acetaminophen 01/23/19 01/24/19 01/24/19 19:49 02:06 03:20 WBC RBC Hgb Hct MCH RDW Plt Count Lymph % (Auto) [place] % (Auto) Lymph # Seg Neutrophils % Monocytes % (Manual) Seg Neutrophils # POC ABG pO2 113 H 114 H Potassium Chloride Carbon Dioxide BUN Creatinine Glucose POC Glucose 173 H Calcium Magnesium AST ALT Alkaline Phosphatase CK-MB (CK-2) Rel Index Troponin T NT-Pro-B Natriuret Pep Total Protein Albumin HDL Cholesterol Acetaminophen 01/24/19 01/24/19 01/24/19 05:25 05:40 05:40 WBC RBC Hgb Hct MCH 26 L RDW 18.3 H Plt Count 109 L Lymph % (Auto) [place] % (Auto) Lymph # Seg Neutrophils % Monocytes % (Manual) Seg Neutrophils # POC ABG pO2 Potassium Chloride Carbon Dioxide BUN 37 H Creatinine 3.9 H Glucose 142 H POC Glucose 150 H Calcium 8.2 L D Magnesium 2.70 H AST ALT Alkaline Phosphatase CK-MB (CK-2) Rel Index Troponin T NT-Pro-B Natriuret Pep Total Protein Albumin HDL Cholesterol Acetaminophen 01/24/19 01/24/19 01/24/19 11:34 17:32 23:36 WBC RBC Hgb Hct MCH RDW Plt Count Lymph % (Auto) [place] % (Auto) Lymph # Seg Neutrophils % Monocytes % (Manual) Seg Neutrophils # POC ABG pO2 Potassium Chloride Carbon Dioxide BUN Creatinine Glucose POC Glucose 143 H 174 H 106 H Calcium Magnesium AST ALT Alkaline Phosphatase CK-MB (CK-2) Rel Index Troponin T NT-Pro-B Natriuret Pep Total Protein Albumin HDL Cholesterol Acetaminophen 01/25/19 01/25/19 01/25/19 05:21 05:22 05:22 WBC 13.2 H RBC Hgb Hct MCH 26 L RDW 17.7 H Plt Count 120 L Lymph % (Auto) 3.3 L [place] % (Auto) Lymph # 0.4 L Seg Neutrophils % 90.0 H Monocytes % (Manual) Seg Neutrophils # 11.8 H POC ABG pO2 Potassium Chloride 95.7 L Carbon Dioxide BUN 21 H Creatinine 3.2 H Glucose 112 H POC Glucose 111 H Calcium 8.0 L Magnesium AST ALT Alkaline Phosphatase 131 H CK-MB (CK-2) Rel Index Troponin T NT-Pro-B Natriuret Pep Total Protein Albumin 3.0 L HDL Cholesterol Acetaminophen 01/25/19 01/25/19 01/25/19 11:53 12:14 17:26 WBC RBC Hgb Hct MCH RDW Plt Count Lymph % (Auto) [place] % (Auto) Lymph # Seg Neutrophils % Monocytes % (Manual) Seg Neutrophils # POC ABG pO2 110 H Potassium Chloride Carbon Dioxide BUN Creatinine Glucose POC Glucose 113 H 109 H Calcium Magnesium AST ALT Alkaline Phosphatase CK-MB (CK-2) Rel Index Troponin T NT-Pro-B Natriuret Pep Total Protein Albumin HDL Cholesterol Acetaminophen 01/25/19 01/26/19 01/26/19 23:50 12:32 13:15 WBC RBC Hgb Hct MCH RDW Plt Count Lymph % (Auto) [place] % (Auto) Lymph # Seg Neutrophils % Monocytes % (Manual) Seg Neutrophils # POC ABG pO2 Potassium Chloride Carbon Dioxide BUN Creatinine Glucose POC Glucose 254 H 138 H Calcium Magnesium AST ALT Alkaline Phosphatase CK-MB (CK-2) Rel Index 4.3 H Troponin T 0.227 H* D NT-Pro-B Natriuret Pep Total Protein Albumin HDL Cholesterol Acetaminophen 01/26/19 01/27/19 01/27/19 21:07 08:51 12:16 WBC RBC Hgb Hct MCH RDW Plt Count Lymph % (Auto) [place] % (Auto) Lymph # Seg Neutrophils % Monocytes % (Manual) Seg Neutrophils # POC ABG pO2 Potassium Chloride Carbon Dioxide BUN Creatinine Glucose POC Glucose 218 H 120 H 211 H Calcium Magnesium AST ALT Alkaline Phosphatase CK-MB (CK-2) Rel Index Troponin T NT-Pro-B Natriuret Pep Total Protein Albumin HDL Cholesterol Acetaminophen 01/27/19 01/27/19 01/28/19 17:22 20:58 07:06 WBC RBC Hgb Hct MCH RDW Plt Count Lymph % (Auto) [place] % (Auto) Lymph # Seg Neutrophils % Monocytes % (Manual) Seg Neutrophils # POC ABG pO2 Potassium Chloride Carbon Dioxide BUN Creatinine Glucose POC Glucose 289 H 215 H 111 H Calcium Magnesium AST ALT Alkaline Phosphatase CK-MB (CK-2) Rel Index Troponin T NT-Pro-B Natriuret Pep Total Protein Albumin HDL Cholesterol Acetaminophen 01/28/19 01/28/19 01/28/19 14:08 16:05 22:25 WBC RBC Hgb Hct MCH 26 L RDW 17.6 H Plt Count Lymph % (Auto) 8.6 L [place] % (Auto) 8.8 H Lymph # 0.6 L Seg Neutrophils % 80.5 H Monocytes % (Manual) Seg Neutrophils # POC ABG pO2 Potassium Chloride Carbon Dioxide BUN Creatinine Glucose POC Glucose 179 H 191 H Calcium Magnesium AST ALT Alkaline Phosphatase CK-MB (CK-2) Rel Index Troponin T NT-Pro-B Natriuret Pep Total Protein Albumin HDL Cholesterol Acetaminophen 01/29/19 01/29/19 01/29/19 08:20 11:27 16:14 WBC RBC Hgb Hct MCH RDW Plt Count Lymph % (Auto) [place] % (Auto) Lymph # Seg Neutrophils % Monocytes % (Manual) Seg Neutrophils # POC ABG pO2 Potassium Chloride Carbon Dioxide BUN Creatinine Glucose POC Glucose 140 H 247 H 169 H Calcium Magnesium AST ALT Alkaline Phosphatase CK-MB (CK-2) Rel Index Troponin T NT-Pro-B Natriuret Pep Total Protein Albumin HDL Cholesterol Acetaminophen 01/30/19 01/30/19 01/30/19 07:55 11:38 16:38 WBC RBC Hgb Hct MCH RDW Plt Count Lymph % (Auto) [place] % (Auto) Lymph # Seg Neutrophils % Monocytes % (Manual) Seg Neutrophils # POC ABG pO2 Potassium Chloride Carbon Dioxide BUN Creatinine Glucose POC Glucose 119 H 182 H 249 H Calcium Magnesium AST ALT Alkaline Phosphatase CK-MB (CK-2) Rel Index Troponin T NT-Pro-B Natriuret Pep Total Protein Albumin HDL Cholesterol Acetaminophen Allied health notes reviewed: nursing
[2019-01-31 05:07] LABS: Hematocrit 33.4 % (30.3-42.9); Hemoglobin 10.8 gm/dl (10.1-14.3); Mean Corpuscular HGB Conc 32 % (30-34); Mean Corpuscular Volume 80 fl (79-97); Platelet Count 216 K/mm3 (140-440); Red Blood Count 4.16 M/mm3 (3.65-5.03); Red Cell Distribution Width 17.6 % (13.2-15.2)
[2019-01-31 05:18] LABS: Calcium 7.4 mg/dL (8.4-10.2)
[2019-01-31 05:19] LABS: INR 1.15 (0.87-1.13)
[2019-01-31] MEDS ORDERED: NACL 0.9% 1,000 ML, .VANCOMYCIN VIAL 1,000 MG IR ONE ×2 (06:00→06:47)
[2019-01-31 06:12] LABS: Total Cells Counted 100
[2019-01-31 06:13] LABS: Hypochromasia 1+
[2019-01-31] MEDS: HumaLOG SUB-Q SCH ×2 (08:33→17:17)
--- NOTE | 2019-01-31 08:58 | Progress Note ---
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 ICD placement planned for Thursday (2) ESRD needing dialysis Current Visit: Yes Status: Acute Plan to address problem: Continue hemodialysis on a Thursday, Thursday and Thursday schedule.Had a long discussion about her missing dialysis being the reasoin for her volume overload which leads to increased fluid removal on Dialysis and then Cardiac events. She admits its not increased fluid intake but missed Dialysis treatments. She did not commit to not missing treatments anymore but will think about it (3) Anemia in chronic kidney disease Current Visit: No Status: Acute Plan to address problem: Continue Erythropoetin on dialysis (4) Chronic systolic heart failure Current Visit: No Status: Acute Plan to address problem: Dilated nonischemic cardiomyopathy with EF 10-15% 12/2018; noncompliant with outpatient lifevest. For ICD placement on Thursday. 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 Follow blood pressure on current medications Subjective Date of service: 01/31/19 Principal diagnosis: Acute hypoxemic resp failure; S/P cardiac arrest; ESRD on dialysis; DM II Interval history: Patient seen lying in bed. 2 daughters and 2 Sons at bedside. She refused ICD placement. She is not sure it will "make a difference" so decided not to Objective - Exam Narrative Exam: Elderly -[place]ames[place] female lying in bed in no acute distress HEENT: NCAT, pink oral mucous membrane Neck: Supple, no venous distention CVS: S1S2 RRR with no murmur, rub or gallop Chest: Clear to auscultation Abdomen: Protuberant, soft, nontender, no organomegaly, bowel sounds are present Extremities: No edema, right upper extremity AV fistula, swelling of the right upper extremity Neuro: Awake, alert no focal deficits - Vital Signs Vital signs: Vital Signs - 12hr 01/30/19 01/30/19 01/31/19 21:00 23:37 05:24 Temperature 98.0 F 98 F Pulse Rate 69 68 Respiratory 20 18 20 Rate Blood Pressure 94/43 Blood Pressure 110/68 [Left] O2 Sat by Pulse 93 94 Oximetry - Lab 01/31/19 04:34 01/31/19 04:34 Most recent lab results Calcium 7.4 mg/dL (8.4-10.2) L 01/31/19 04:34 Magnesium 2.00 mg/dL (1.7-2.3) 01/25/19 05:22 Medications & Allergies - Medications Allergies/Adverse Reactions: Allergies phenytoin sodium [From Dilantin] Allergy (Verified 05/08/16 07:07) Anaphylaxis phenytoin sodium extended [From Dilantin] Allergy (Verified 05/08/16 07:07) Anaphylaxis Home Medications: Home Medications Medication Instructions Recorded Confirmed Last Taken Type Ferrous Sulfate [Iron 325 MG] 325 mg PO DAILY 01/04/19 01/22/19 01/03/19 History Aspirin EC 81 mg PO QDAY #30 tablet. 01/07/19 01/22/19 Unknown Rx Clopidogrel [Plavix] 75 mg PO QDAY #30 tablet 01/07/19 01/22/19 Unknown Rx Losartan [Cozaar] 100 mg PO DAILY 30 Days #30 tablet 01/07/19 01/22/19 Unknown Rx Metoprolol [Lopressor TAB] 50 mg PO BID #60 tablet 01/07/19 01/22/19 Unknown Rx Pravastatin [Pravachol] 20 mg PO QHS #30 tablet 01/07/19 01/22/19 Unknown Rx Active Medications: Generic Name Dose Route Start Last Admin Trade Name Freq PRN Reason Stop Dose Admin Albuterol 2.5 mg 01/22/19 12:23 01/25/19 12:40 Proventil IH 2.5 mg Q3H PRN Administration Shortness Of Breath Aspirin 81 mg 01/23/19 10:00 01/30/19 10:03 Halfprin Ec PO 81 mg QDAY LUCIO Administration Clopidogrel Bisulfate 75 mg 01/23/19 10:00 01/30/19 10:02 Plavix PO 75 mg QDAY LUCIO Administration Dextrose 50 ml 01/23/19 06:43 D50w (25gm) Syringe IV PRN PRN Hypoglycemia Enoxaparin Sodium 30 mg 01/24/19 22:00 01/30/19 21:01 Lovenox SUB-Q 30 mg QDAY@2200 LUCIO Administration Epoetin Gilberto 10,000 unit 01/26/19 12:54 01/28/19 12:36 Procrit SUB-Q 10,000 unit ALHAJI LUCIO Administration Famotidine 20 mg 01/24/19 10:00 01/30/19 10:03 Pepcid PO 20 mg DAILY LUCIO Administration Ferrous Sulfate 308 mg 01/24/19 10:00 01/30/19 10:02 Ferrous Sulfate FEEDTUBE 308 mg DAILY LUCIO Administration Guaifenesin 10 ml 01/28/19 23:54 01/30/19 21:01 Guaifenesin Dm Syrup PO 10 ml Q4H PRN Administration Cough Hydrophilic Ointment 1 applic 01/22/19 09:33 Vaseline Lip Therapy TP Q2HR PRN Dry Lips Sodium Chloride 100 mls @ 999 mls/hr 01/24/19 16:49 Nacl 0.9% IV ALHAJI PRN Hypotension Insulin Human Lispro 0 unit 01/26/19 11:30 01/31/19 08:33 Humalog SUB-Q Not Given ACHS [facility] Protocol Lisinopril 2.5 mg 01/28/19 10:00 01/30/19 10:03 Zestril PO 2.5 mg QDAY LUCIO Administration Metoprolol Succinate 50 mg 01/28/19 10:00 01/30/19 10:02 Toprol Xl PO 50 mg QDAY LUCIO Administration Morphine Sulfate 1 mg 01/26/19 12:06 01/30/19 21:00 Morphine IV 1 mg Q4H PRN Administration Pain, Moderate (4-6) Multi-Ingred Cream/Lotion/Oil/Oint 1 applic 01/22/19 09:33 Artificial Tears Ophth Oint OU Q4HR PRN Dry Eye(s) Pravastatin Sodium 20 mg 01/22/19 22:00 01/30/19 21:01 Pravachol PO 20 mg QHS LUCIO Administration Sodium Chloride 10 ml 01/22/19 22:00 01/30/19 21:02 Sodium Chloride Flush Syringe 10 Ml IV 10 ml BID LUCIO Administration Sodium Chloride 10 ml 01/22/19 12:23 01/28/19 21:47 Sodium Chloride Flush Syringe 10 Ml IV 10 ml PRN PRN Administration LINE FLUSH
--- NOTE | 2019-01-31 09:32 | Consultation ---
History of Present Illness Consult date: 01/31/19 Consult reason: cardiac arrest, congestive heart failure History of present illness: Electrophysiology Consult 78 YO woman with h/o dilated cardiomyopathy (most recent EF 10-15% by echo on 01/04/19), CAD s/p PCI of proximal LAD on 01/04/18, and ESRD on hemodialysis. She was brought to ED after she had apparent cardiopulmonary arrest while at dialysis. She was apparently found to be unresponsive and pulse-less while at dialysis. CPR was initiated and she was resuscitated. There is no documentation of her having VT or VF and there is no documentation of her requiring defibrillation. Initial documented rhythm in ED was sinus rhythm. She was hospitalized at this hospital last month she had episode of syncope and was hooked up to life vest. She found the life vest uncomfortable and did not wear it and her son has returned it to the company. She was initially confused upon admission but her mental status has improved during hospitalization. Given severe cardiomyopathy, she had decided she wanted to pursue ICD implant and procedure was scheduled for this morning but has now decided she does not want to pursue ICD implant. Past History Past Medical History: diabetes, ESRD, PVD, stroke, other (Pulmonary HTN) Past Surgical History: Other (AV Fistula, Foot Surgery, femoral Bypass) Social history: , lives with family. denies: smoking, alcohol abuse, prescription drug abuse Family history: CAD, hypertension Medications and Allergies Allergies Allergy/AdvReac Type Severity Reaction Status Date / Time phenytoin sodium Allergy Anaphylaxis Verified 05/08/16 07:07 [From Dilantin] phenytoin sodium extended Allergy Anaphylaxis Verified 05/08/16 07:07 [From Dilantin] Home Medications Medication Instructions Recorded Confirmed Last Taken Type Ferrous Sulfate [Iron 325 MG] 325 mg PO DAILY 01/04/19 01/22/19 01/03/19 History Aspirin EC 81 mg PO QDAY #30 tablet. 01/07/19 01/22/19 Unknown Rx Clopidogrel [Plavix] 75 mg PO QDAY #30 tablet 01/07/19 01/22/19 Unknown Rx Losartan [Cozaar] 100 mg PO DAILY 30 Days #30 tablet 01/07/19 01/22/19 Unknown Rx Metoprolol [Lopressor TAB] 50 mg PO BID #60 tablet 01/07/19 01/22/19 Unknown Rx Pravastatin [Pravachol] 20 mg PO QHS #30 tablet 01/07/19 01/22/19 Unknown Rx Active Meds: Active Medications Albuterol (Proventil) 2.5 mg IH Q3H PRN PRN Reason: Shortness Of Breath Last Admin: 01/25/19 12:40 Dose: 2.5 mg Documented by: Aspirin (Halfprin Ec) 81 mg PO QDAY [facility] Last Admin: 01/30/19 10:03 Dose: 81 mg Documented by: Clopidogrel Bisulfate (Plavix) 75 mg PO QDAY [facility] Last Admin: 01/30/19 10:02 Dose: 75 mg Documented by: Dextrose (D50w (25gm) Syringe) 50 ml IV PRN PRN PRN Reason: Hypoglycemia Enoxaparin Sodium (Lovenox) 30 mg SUB-Q QDAY@2200 [facility] Last Admin: 01/30/19 21:01 Dose: 30 mg Documented by: Epoetin Gilberto (Procrit) 10,000 unit SUB-Q ALHAJI [facility] Last Admin: 01/28/19 12:36 Dose: 10,000 unit Documented by: Famotidine (Pepcid) 20 mg PO DAILY [facility] Last Admin: 01/30/19 10:03 Dose: 20 mg Documented by: Ferrous Sulfate (Ferrous Sulfate) 308 mg FEEDTUBE DAILY [facility] Last Admin: 01/30/19 10:02 Dose: 308 mg Documented by: Guaifenesin (Guaifenesin Dm Syrup) 10 ml PO Q4H PRN PRN Reason: Cough Last Admin: 01/30/19 21:01 Dose: 10 ml Documented by: Hydrophilic Ointment (Vaseline Lip Therapy) 1 applic TP Q2HR PRN PRN Reason: Dry Lips Sodium Chloride (Nacl 0.9%) 100 mls @ 999 mls/hr IV ALHAJI PRN PRN Reason: Hypotension Insulin Human Lispro (Humalog) 0 unit SUB-Q [facility]; Protocol Last Admin: 01/31/19 08:33 Dose: Not Given Documented by: Lisinopril (Zestril) 2.5 mg PO QDAY [facility] Last Admin: 01/30/19 10:03 Dose: 2.5 mg Documented by: Metoprolol Succinate (Toprol Xl) 50 mg PO QDAY [facility] Last Admin: 01/30/19 10:02 Dose: 50 mg Documented by: Morphine Sulfate (Morphine) 1 mg IV Q4H PRN PRN Reason: Pain, Moderate (4-6) Last Admin: 01/30/19 21:00 Dose: 1 mg Documented by: Multi-Ingred Cream/Lotion/Oil/Oint (Artificial Tears Ophth Oint) 1 applic OU Q4HR PRN PRN Reason: Dry Eye(s) Pravastatin Sodium (Pravachol) 20 mg PO QHS [facility] Last Admin: 01/30/19 21:01 Dose: 20 mg Documented by: Sodium Chloride (Sodium Chloride Flush Syringe 10 Ml) 10 ml IV BID [facility] Last Admin: 01/30/19 21:02 Dose: 10 ml Documented by: Sodium Chloride (Sodium Chloride Flush Syringe 10 Ml) 10 ml IV PRN PRN PRN Reason: LINE FLUSH Last Admin: 01/28/19 21:47 Dose: 10 ml Documented by: Review of Systems All systems: negative (per hpi) Physical Examination Vital Signs Temp Pulse Resp BP Pulse Ox 92.4 F L 102 H 12 150/96 99 01/22/19 09:20 01/22/19 09:20 01/22/19 09:20 01/22/19 09:20 01/22/19 09:20 General appearance: no acute distress HEENT: Positive: EOMI Neck: Positive: neck supple, trachea midline Cardiac: Positive: Reg Rate and Rhythm, Systolic Murmur (II/ HSM at apex) Lungs: Positive: clear to auscultation Neuro: Positive: Grossly Intact Abdomen: Positive: Soft, Active Bowel Sounds Extremities: Absent: edema Results 01/31/19 04:34 01/31/19 04:34 Coagulation 01/31/19 Range/Units 04:34 PT 15.4 H (12.2-14.9) Sec. INR 1.15 H (0.87-1.13) CBC 01/31/19 Range/Units 04:34 WBC 6.7 (4.5-11.0) K/mm3 RBC 4.16 (3.65-5.03) M/mm3 Hgb 10.8 (10.1-14.3) gm/dl Hct 33.4 (30.3-42.9) % Plt Count 216 (140-440) K/mm3 Comprehensive Metabolic Panel 01/31/19 Range/Units 04:34 Sodium 137 (137-145) mmol/L Potassium 4.4 (3.6-5.0) mmol/L Chloride 95.6 L (98-107) mmol/L Carbon Dioxide 27 (22-30) mmol/L BUN 38 H (7-17) mg/dL Creatinine 4.7 H (0.7-1.2) mg/dL Glucose 99 (65-100) mg/dL Calcium 7.4 L (8.4-10.2) mg/dL Assessment and Plan S/P Cardio-Pulmonary arrest. No documentation of VT or VF and suspect PEA based on documentation. Severe Dilated cardiomyopathy with EF 10-15% CAD s/p LAD PCI in 01/04/18 ESRD on HD Recommend: I spent over 45 minutes with patient and family discussing ICD implant and goals of therapy. Patient and her family do not want to pursue ICD implant at this time and understand her risk of sudden cardiac . She does not want to wear life vest at this time. Continue GDMT for severe dilated cardiomyopathy.
[2019-01-31] MEDS: PROCRIT SUB-Q SCH (13:00)
--- NOTE | 2019-01-31 14:03 | Progress Note ---
Assessment and Plan Patient alert, awake and oriented. She is presently on 2 litres 02. O2 saturation 98%. No acute respiratory distress. - Patient Problems (1) Acute respiratory failure Current Visit: Yes Status: Acute Qualifiers: Respiratory failure complication: unspecified whether with hypoxia or hypercapnia Qualified Code(s): J96.00 - Acute respiratory failure, unspecified whether with hypoxia or hypercapnia Plan to address problem: O2 2 litres via nasal canula. Albuterol aerosol treatments q 6 hours prn for shortness of breath. Continue S/C Lovenox. Continue Famotidine. ABGs on room air. (2) Cardiac arrest Current Visit: Yes Status: Acute Plan to address problem: Resucitated successfully. (3) Diabetes Current Visit: Yes Status: Acute Plan to address problem: Management as per primary care. (4) ESRD needing dialysis Current Visit: Yes Status: Acute Plan to address problem: Management as per nephrology. (5) HTN (hypertension) Current Visit: Yes Status: Acute Qualifiers: Hypertension type: essential hypertension Qualified Code(s): I10 - Essential (primary) hypertension Plan to address problem: Management as per primary care. (6) Pulmonary hypertension Current Visit: Yes Status: Acute Plan to address problem: Continue o2 supplementation. PFTs as out patient. Recommend to obtain Echocardiogram. Subjective Date of service: 01/31/19 Principal diagnosis: Acute hypoxemic resp failure; S/P cardiac arrest; ESRD on dialysis; DM II Interval history: Patient alert, awake and oriented. She is presently on 2 litres 02. O2 saturation 98%. No acute respiratory distress. Objective Vital Signs - 12hr 01/31/19 01/31/19 01/31/19 05:24 08:20 09:00 Temperature 98 F 98.2 F 98.2 F Pulse Rate 68 75 75 Respiratory 20 18 18 Rate Blood Pressure 120/59 104/57 Blood Pressure 110/68 [Left] O2 Sat by Pulse 94 93 Oximetry 01/31/19 01/31/19 01/31/19 09:30 09:45 10:00 Temperature Pulse Rate 74 79 72 Respiratory Rate Blood Pressure 105/58 111/61 99/53 Blood Pressure [Left] O2 Sat by Pulse Oximetry 01/31/19 01/31/19 01/31/19 10:15 10:30 10:45 Temperature Pulse Rate 82 82 82 Respiratory Rate Blood Pressure 130/67 110/64 124/64 Blood Pressure [Left] O2 Sat by Pulse Oximetry 01/31/19 01/31/19 01/31/19 11:00 11:15 11:30 Temperature Pulse Rate 81 80 81 Respiratory Rate Blood Pressure 123/66 110/61 111/56 Blood Pressure [Left] O2 Sat by Pulse Oximetry 01/31/19 01/31/19 01/31/19 11:45 12:00 12:15 Temperature Pulse Rate 81 85 81 Respiratory Rate Blood Pressure 116/59 109/61 103/59 Blood Pressure [Left] O2 Sat by Pulse Oximetry 01/31/19 01/31/19 12:30 12:45 Temperature Pulse Rate 81 83 Respiratory Rate Blood Pressure 99/56 112/62 Blood Pressure [Left] O2 Sat by Pulse Oximetry Constitutional: no acute distress, alert, other (elderly looking AAF, normocephalic resting in bed ) Eyes: non-icteric ENT: oropharynx moist Neck: supple, no lymphadenopathy, no JVD, other (no thyromegaly) Effort: normal Ascultation: Bilateral: diminished breath sounds, rhonchi, other (chest pain reproducible on palpation of chest wall) Percussion: Bilateral: not dull Cardiovascular: regular rate and rhythm, murmur noted (systolic), other (S1,S2) Gastrointestinal: normoactive bowel sounds, soft, non-tender, non-distended Integumentary: rash Extremities: no cyanosis, no edema, pulses normal, no ischemia or petechiae Neurologic: normal mental status, non-focal exam, pupils equal and round, CN II- XII normal, motor strength normal and Psychiatric: mood appropriate, affect normal CBC and BMP: 01/31/19 04:34 01/31/19 04:34 ABG, PT/INR, D-dimer: ABG POC ABG pH 7.450 (7.35-7.45) 01/25/19 12:14 POC ABG pCO2 37.3 (35-45) 01/25/19 12:14 POC ABG pO2 110 (80-105) H 01/25/19 12:14 POC ABG HCO3 25.9 (22-26 mml/L) 01/25/19 12:14 POC ABG Total CO2 27 (23-27mmol/L) 01/25/19 12:14 POC ABG O2 Sat 99 01/25/19 12:14 PT/INR, D-dimer PT 15.4 Sec. (12.2-14.9) H 01/31/19 04:34 INR 1.15 (0.87-1.13) H 01/31/19 04:34 Abnormal lab findings: Abnormal Labs 01/22/19 01/22/19 01/22/19 09:27 11:09 15:07 WBC RBC Hgb Hct MCH RDW Plt Count Lymph % (Auto) [place] % (Auto) Lymph # Seg Neutrophils % Seg Neuts % (Manual) Lymphocytes % (Manual) Monocytes % (Manual) Basophils % (Manual) Seg Neutrophils # Lymphocytes # (Manual) Monocytes # (Manual) PT INR POC ABG pO2 207 H Potassium Chloride Carbon Dioxide BUN Creatinine Glucose POC Glucose 113 H 134 H Calcium Magnesium AST ALT Alkaline Phosphatase CK-MB (CK-2) Rel Index Troponin T NT-Pro-B Natriuret Pep Total Protein Albumin HDL Cholesterol Acetaminophen 01/22/19 01/22/19 01/22/19 15:35 17:40 Unknown WBC RBC Hgb Hct MCH 26 L RDW 17.3 H Plt Count Lymph % (Auto) [place] % (Auto) Lymph # Seg Neutrophils % Seg Neuts % (Manual) Lymphocytes % (Manual) Monocytes % (Manual) 11.0 H Basophils % (Manual) Seg Neutrophils # Lymphocytes # (Manual) Monocytes # (Manual) PT INR POC ABG pO2 Potassium Chloride Carbon Dioxide BUN Creatinine Glucose POC Glucose 121 H Calcium Magnesium AST ALT Alkaline Phosphatase CK-MB (CK-2) Rel Index Troponin T NT-Pro-B Natriuret Pep Total Protein Albumin HDL Cholesterol Acetaminophen < 5.0 L 01/22/19 01/23/19 01/23/19 Unknown 01:26 03:48 WBC RBC Hgb Hct MCH RDW Plt Count Lymph % (Auto) [place] % (Auto) Lymph # Seg Neutrophils % Seg Neuts % (Manual) Lymphocytes % (Manual) Monocytes % (Manual) Basophils % (Manual) Seg Neutrophils # Lymphocytes # (Manual) Monocytes # (Manual) PT INR POC ABG pO2 138 H Potassium Chloride 96.2 L Carbon Dioxide BUN 20 H Creatinine 2.4 H Glucose 150 H POC Glucose 108 H Calcium Magnesium AST 109 H ALT 63 H Alkaline Phosphatase 227 H CK-MB (CK-2) Rel Index Troponin T 0.133 H* NT-Pro-B Natriuret Pep Total Protein Albumin 3.8 L HDL Cholesterol 62 H Acetaminophen 01/23/19 01/23/19 01/23/19 04:29 04:29 17:11 WBC RBC 3.27 L Hgb 8.8 L Hct 26.8 L D MCH 27 L RDW 17.5 H Plt Count 100 L Lymph % (Auto) 9.1 L [place] % (Auto) 11.4 H Lymph # 0.4 L Seg Neutrophils % 78.3 H Seg Neuts % (Manual) Lymphocytes % (Manual) Monocytes % (Manual) Basophils % (Manual) Seg Neutrophils # Lymphocytes # (Manual) Monocytes # (Manual) PT INR POC ABG pO2 Potassium 3.0 L D Chloride 109.2 H Carbon Dioxide 18 L D BUN 23 H Creatinine 2.6 H Glucose POC Glucose 63 L Calcium 6.4 L D Magnesium 1.50 L AST ALT Alkaline Phosphatase CK-MB (CK-2) Rel Index Troponin T NT-Pro-B Natriuret Pep 81976 H Total Protein 4.7 L D Albumin 2.2 L HDL Cholesterol Acetaminophen 01/23/19 01/24/19 01/24/19 19:49 02:06 03:20 WBC RBC Hgb Hct MCH RDW Plt Count Lymph % (Auto) [place] % (Auto) Lymph # Seg Neutrophils % Seg Neuts % (Manual) Lymphocytes % (Manual) Monocytes % (Manual) Basophils % (Manual) Seg Neutrophils # Lymphocytes # (Manual) Monocytes # (Manual) PT INR POC ABG pO2 113 H 114 H Potassium Chloride Carbon Dioxide BUN Creatinine Glucose POC Glucose 173 H Calcium Magnesium AST ALT Alkaline Phosphatase CK-MB (CK-2) Rel Index Troponin T NT-Pro-B Natriuret Pep Total Protein Albumin HDL Cholesterol Acetaminophen 01/24/19 01/24/19 01/24/19 05:25 05:40 05:40 WBC RBC Hgb Hct MCH 26 L RDW 18.3 H Plt Count 109 L Lymph % (Auto) [place] % (Auto) Lymph # Seg Neutrophils % Seg Neuts % (Manual) Lymphocytes % (Manual) Monocytes % (Manual) Basophils % (Manual) Seg Neutrophils # Lymphocytes # (Manual) Monocytes # (Manual) PT INR POC ABG pO2 Potassium Chloride Carbon Dioxide BUN 37 H Creatinine 3.9 H Glucose 142 H POC Glucose 150 H Calcium 8.2 L D Magnesium 2.70 H AST ALT Alkaline Phosphatase CK-MB (CK-2) Rel Index Troponin T NT-Pro-B Natriuret Pep Total Protein Albumin HDL Cholesterol Acetaminophen 01/24/19 01/24/19 01/24/19 11:34 17:32 23:36 WBC RBC Hgb Hct MCH RDW Plt Count Lymph % (Auto) [place] % (Auto) Lymph # Seg Neutrophils % Seg Neuts % (Manual) Lymphocytes % (Manual) Monocytes % (Manual) Basophils % (Manual) Seg Neutrophils # Lymphocytes # (Manual) Monocytes # (Manual) PT INR POC ABG pO2 Potassium Chloride Carbon Dioxide BUN Creatinine Glucose POC Glucose 143 H 174 H 106 H Calcium Magnesium AST ALT Alkaline Phosphatase CK-MB (CK-2) Rel Index Troponin T NT-Pro-B Natriuret Pep Total Protein Albumin HDL Cholesterol Acetaminophen 01/25/19 01/25/19 01/25/19 05:21 05:22 05:22 WBC 13.2 H RBC Hgb Hct MCH 26 L RDW 17.7 H Plt Count 120 L Lymph % (Auto) 3.3 L [place] % (Auto) Lymph # 0.4 L Seg Neutrophils % 90.0 H Seg Neuts % (Manual) Lymphocytes % (Manual) Monocytes % (Manual) Basophils % (Manual) Seg Neutrophils # 11.8 H Lymphocytes # (Manual) Monocytes # (Manual) PT INR POC ABG pO2 Potassium Chloride 95.7 L Carbon Dioxide BUN 21 H Creatinine 3.2 H Glucose 112 H POC Glucose 111 H Calcium 8.0 L Magnesium AST ALT Alkaline Phosphatase 131 H CK-MB (CK-2) Rel Index Troponin T NT-Pro-B Natriuret Pep Total Protein Albumin 3.0 L HDL Cholesterol Acetaminophen 01/25/19 01/25/19 01/25/19 11:53 12:14 17:26 WBC RBC Hgb Hct MCH RDW Plt Count Lymph % (Auto) [place] % (Auto) Lymph # Seg Neutrophils % Seg Neuts % (Manual) Lymphocytes % (Manual) Monocytes % (Manual) Basophils % (Manual) Seg Neutrophils # Lymphocytes # (Manual) Monocytes # (Manual) PT INR POC ABG pO2 110 H Potassium Chloride Carbon Dioxide BUN Creatinine Glucose POC Glucose 113 H 109 H Calcium Magnesium AST ALT Alkaline Phosphatase CK-MB (CK-2) Rel Index Troponin T NT-Pro-B Natriuret Pep Total Protein Albumin HDL Cholesterol Acetaminophen 01/25/19 01/26/19 01/26/19 23:50 12:32 13:15 WBC RBC Hgb Hct MCH RDW Plt Count Lymph % (Auto) [place] % (Auto) Lymph # Seg Neutrophils % Seg Neuts % (Manual) Lymphocytes % (Manual) Monocytes % (Manual) Basophils % (Manual) Seg Neutrophils # Lymphocytes # (Manual) Monocytes # (Manual) PT INR POC ABG pO2 Potassium Chloride Carbon Dioxide BUN Creatinine Glucose POC Glucose 254 H 138 H Calcium Magnesium AST ALT Alkaline Phosphatase CK-MB (CK-2) Rel Index 4.3 H Troponin T 0.227 H* D NT-Pro-B Natriuret Pep Total Protein Albumin HDL Cholesterol Acetaminophen 01/26/19 01/27/19 01/27/19 21:07 08:51 12:16 WBC RBC Hgb Hct MCH RDW Plt Count Lymph % (Auto) [place] % (Auto) Lymph # Seg Neutrophils % Seg Neuts % (Manual) Lymphocytes % (Manual) Monocytes % (Manual) Basophils % (Manual) Seg Neutrophils # Lymphocytes # (Manual) Monocytes # (Manual) PT INR POC ABG pO2 Potassium Chloride Carbon Dioxide BUN Creatinine Glucose POC Glucose 218 H 120 H 211 H Calcium Magnesium AST ALT Alkaline Phosphatase CK-MB (CK-2) Rel Index Troponin T NT-Pro-B Natriuret Pep Total Protein Albumin HDL Cholesterol Acetaminophen 01/27/19 01/27/19 01/28/19 17:22 20:58 07:06 WBC RBC Hgb Hct MCH RDW Plt Count Lymph % (Auto) [place] % (Auto) Lymph # Seg Neutrophils % Seg Neuts % (Manual) Lymphocytes % (Manual) Monocytes % (Manual) Basophils % (Manual) Seg Neutrophils # Lymphocytes # (Manual) Monocytes # (Manual) PT INR POC ABG pO2 Potassium Chloride Carbon Dioxide BUN Creatinine Glucose POC Glucose 289 H 215 H 111 H Calcium Magnesium AST ALT Alkaline Phosphatase CK-MB (CK-2) Rel Index Troponin T NT-Pro-B Natriuret Pep Total Protein Albumin HDL Cholesterol Acetaminophen 01/28/19 01/28/19 01/28/19 14:08 16:05 22:25 WBC RBC Hgb Hct MCH 26 L RDW 17.6 H Plt Count Lymph % (Auto) 8.6 L [place] % (Auto) 8.8 H Lymph # 0.6 L Seg Neutrophils % 80.5 H Seg Neuts % (Manual) Lymphocytes % (Manual) Monocytes % (Manual) Basophils % (Manual) Seg Neutrophils # Lymphocytes # (Manual) Monocytes # (Manual) PT INR POC ABG pO2 Potassium Chloride Carbon Dioxide BUN Creatinine Glucose POC Glucose 179 H 191 H Calcium Magnesium AST ALT Alkaline Phosphatase CK-MB (CK-2) Rel Index Troponin T NT-Pro-B Natriuret Pep Total Protein Albumin HDL Cholesterol Acetaminophen 01/29/19 01/29/19 01/29/19 08:20 11:27 16:14 WBC RBC Hgb Hct MCH RDW Plt Count Lymph % (Auto) [place] % (Auto) Lymph # Seg Neutrophils % Seg Neuts % (Manual) Lymphocytes % (Manual) Monocytes % (Manual) Basophils % (Manual) Seg Neutrophils # Lymphocytes # (Manual) Monocytes # (Manual) PT INR POC ABG pO2 Potassium Chloride Carbon Dioxide BUN Creatinine Glucose POC Glucose 140 H 247 H 169 H Calcium Magnesium AST ALT Alkaline Phosphatase CK-MB (CK-2) Rel Index Troponin T NT-Pro-B Natriuret Pep Total Protein Albumin HDL Cholesterol Acetaminophen 01/30/19 01/30/19 01/30/19 07:55 11:38 16:38 WBC RBC Hgb Hct MCH RDW Plt Count Lymph % (Auto) [place] % (Auto) Lymph # Seg Neutrophils % Seg Neuts % (Manual) Lymphocytes % (Manual) Monocytes % (Manual) Basophils % (Manual) Seg Neutrophils # Lymphocytes # (Manual) Monocytes # (Manual) PT INR POC ABG pO2 Potassium Chloride Carbon Dioxide BUN Creatinine Glucose POC Glucose 119 H 182 H 249 H Calcium Magnesium AST ALT Alkaline Phosphatase CK-MB (CK-2) Rel Index Troponin T NT-Pro-B Natriuret Pep Total Protein Albumin HDL Cholesterol Acetaminophen 01/31/19 01/31/19 01/31/19 04:34 04:34 04:34 WBC RBC Hgb Hct MCH 26 L RDW 17.6 H Plt Count Lymph % (Auto) [place] % (Auto) Lymph # Seg Neutrophils % Seg Neuts % (Manual) 73.0 H Lymphocytes % (Manual) 10.0 L Monocytes % (Manual) 13.0 H Basophils % (Manual) 2.0 H Seg Neutrophils # Lymphocytes # (Manual) 0.7 L Monocytes # (Manual) 0.9 H PT 15.4 H INR 1.15 H POC ABG pO2 Potassium Chloride 95.6 L Carbon Dioxide BUN 38 H Creatinine 4.7 H Glucose POC Glucose Calcium 7.4 L Magnesium AST ALT Alkaline Phosphatase CK-MB (CK-2) Rel Index Troponin T NT-Pro-B Natriuret Pep Total Protein Albumin HDL Cholesterol Acetaminophen Allied health notes reviewed: nursing
[2019-01-31] MEDS: PLAVIX PO SCH (14:05)
[2019-01-31] MEDS: TOPROL XL PO SCH (14:06)
[2019-01-31] MEDS: HALFPRIN EC PO SCH (14:07)
[2019-01-31 14:11] VITALS: BP 107/54
[2019-01-31] MEDS: SODIUM CHLORIDE FLUSH SYRINGE 10 ML IV SCH (14:11)
[2019-01-31] MEDS: PEPCID PO SCH (14:12)
[2019-01-31] MEDS: FERROUS SULFATE FEEDTUBE SCH (14:12)
--- NOTE | 2019-01-31 16:52 | Discharge Summary ---
Providers - Providers Date of Admission: 01/22/19 12:23 Date of discharge: 01/31/19 Attending physician: KRISTI CURIEL 01/22/19 09:33 Consult to Dietitian/Nutrition [CONS] Routine Physician Instructions: Reason For Exam: Reason for Consult: Evaluate nutritional intake 01/22/19 12:26 Consult to Physician [CONS] Routine Comment: Consulting Provider: RENETTA HELMS Physician Instructions: Reason For Exam: respiratory failure 01/22/19 13:28 Consult to Cardiology [CONS] Routine Consulting Provider: MATTY LUCAS Reason For Exam: cardiac arrest Consult to Physician [CONS] Routine Comment: Consulting Provider: LY RUDOLPH Physician Instructions: Reason For Exam: ESRD 01/23/19 06:43 Consult to Dietitian/Nutrition [CONS] Routine Physician Instructions: Reason For Exam: Reason for Consult: Write/Manage Tube Feeding 01/24/19 10:54 Consult to Wound/ET Nurse [CONS] Routine Reason For Exam: wound eval 01/25/19 14:16 Speech Therapy Evaluation and Treat [CONS] Urgent Reason For Exam: dysphagia 01/26/19 14:53 Physical Therapy Evaluation and Treat [CONS] Routine Comment: Reason For Exam: Debility 01/26/19 14:54 Occupational Therapy Evaluate and Treat [CONS] Routine Comment: Reason For Exam: Debility 01/26/19 17:22 Consult to Physician [CONS] Routine Comment: Consulting Provider: SUZETTE MOORE Physician Instructions: Reason For Exam: h/o cardiac arrest /altered level of conciousness Primary care physician: INTELLIGENCE MANAGER Hospitalization Reason for admission: Out of the hospital cardiac arrest/acute respiratory failure Condition: Stable Pertinent studies: Chest x-ray CT head Intubation and extubation Hospital course: 78 YO Female with ESRD on HD (T,R,Sa ), DM, HTN, CVA, PVD, Pulmonary HTN was admitted through ED with history of unresponsiveness History provided by by family, the patient was in her usual state of health and went to her routine scheduled dialysis session today. Pt was undergoing dialysis today and experienced a sudden onset of loss of consciousness, and was found to be in cardiac arrest. EMS notified, and upon arrival the patient was found to be in distress and in cardiac arrest. Pt treated IAW ACLS protocol with return of perfusing rhythm. Pt intubated and transported to [facility]. Pt seen and evaluated in ED and found to have Acute Respiratory Failure S/P Cardiac Arrest, ESRD, as well as Pneumonia. Pt family denies reports of fever, chills, palpiations, NVD, Trauma, BRBPR, Productive cough, skin rash, unilateral leg swelling, calf pain, prolonged travel/immobility, individual/family history of DVT/PE. Pt admitted to ICU and initiated on Pneumonia protocol. Cardiology, Pulmonary and Nephrology teams consulted in ED. Patient was seen by multiple consultations in consultation and medications were optimized Stabilized in ICU extubated transferred to medical floor Received physical therapy occupational therapy Patient's symptoms significantly improved today is comfortable vital signs are stable Cleared by all the consultations for discharge back to [facility] facility Patient is stable at discharge with guarded prognosis Discharge diagnosis; --Dialated CMP; EF 10-15% anti-failure medications input and output monitoring Noncompliant with cardiac vest, cardiology following possible AICD placement tomorrow -- s/p Cardiac arrest; outside the hospital S/P ACLS with return of perfusing rhythm, Cardiology following, Cardiac cah on 01/31/2019 -- Acute respiratory failure with hypoxia; S/P,extubated On nasal cannula oxygen , O2 sats titrated to more than 90% Nebulizers supportive care, evaluation for home oxygen -- Pneumonia; probable community-acquired Pneumonia protocol, IV antibiotic, follow blood cultures, Oxygen titrate O2 sats to more than 90% --Mild encephalopathy/probably hypoxic supportive care, CT head without contrast, EEG Neurology consult, supportive care --Non-ST elevation ME continue cardiac medications, heart cath prior to discharge -- ESRD needing dialysis Nephrology following, HD per schedule, monitor electrolytes --HTN (hypertension) Monitor BP q shift, Pt currently hypotensive S/P cardiac arrest. -- Diabetes ADA diet, when/if awake alert, insulin, accu check,hypoglycemia protocol -- Pulmonary hypertension supportive care, continue current care, wean vent as tolerated, -- Hypokalemia corrected -- Anemia of chronic renal disease Monitor and transfuse as needed -- PVD: Continue current management -- DVT prophylaxis SCD to BLE while in bed, prophylactic heparin Physical therapy, follow neuro consult and recommendations Stable at discharge to SNF Disposition: [id number]/[id number] SNF [facility] CERT Time spent for discharge: 32 min Core Measure Documentation - Palliative Care Palliative Care/ Comfort Measures: Not Applicable - Core Measures Any of the following diagnoses?: heart failure - Heart Failure Discharge Requirements ANAND/ARB for LVSD if EF <40%: Yes Beta nancy at discharge: Yes Exam - Constitutional Vitals: Temp Pulse Resp BP Pulse Ox 98.2 F 70 18 107/54 98 01/31/19 09:00 01/31/19 14:06 01/31/19 09:00 01/31/19 14:06 01/31/19 14:05 General appearance: Present: no acute distress, well-nourished - EENT Eyes: Present: PERRL, EOM intact - Neck Neck: Present: supple, normal ROM - Cardiovascular Rhythm: regular Heart Sounds: Present: S1 & S2 - Extremities Extremities: no ischemia, No edema - Abdominal General gastrointestinal: Present: soft, non-tender, non-distended, normal bowel sounds - Integumentary Integumentary: Present: clear, warm - Musculoskeletal Musculoskeletal: strength equal bilaterally, generalized weakness - Psychiatric Psychiatric: appropriate mood/affect, cooperative - Neurologic Neurologic: moves all extremities Plan Activity: advance as tolerated, fall precautions Diet: renal Special Instructions: physical therapy Additional Instructions: Fall Precautions Follow up with: PRIMARY CAREMD [Primary Care Provider] - 3-5 Days RENETTA HELMS MD [Staff Physician] - 7 Days KALEB CHOUDHARY MD [Staff Physician] - 7 Days HECTOR THACKER MD [Staff Physician] - 7 Days Forms: Accompanied Note
== END 2019-01-31 18:00 | DRG 871 ==
LOC: ED 09:17 → CC1 12:23 → 4A 01-26 16:51
PROVIDERS: ADMIT Internal Medicine; ATTEND Internal Medicine
PROC: 5A1945Z Respiratory Ventilation, 24-96 Consecutive Hours (ICD-10-PCS; principal; 2019-01-22)
PROC: 4A033R1 Measurement of Arterial Saturation, Peripheral, Percutaneous Approach (ICD-10-PCS; 2019-01-22)
PROC: 5A1D70Z Performance of Urinary Filtration, Intermittent, Less than 6 Hours Per Day (ICD-10-PCS; 2019-01-24)
PROC: 5A1D70Z Performance of Urinary Filtration, Intermittent, Less than 6 Hours Per Day (ICD-10-PCS; 2019-01-26)
PROC: 5A1D70Z Performance of Urinary Filtration, Intermittent, Less than 6 Hours Per Day (ICD-10-PCS; 2019-01-28)
PROC: 5A1D70Z Performance of Urinary Filtration, Intermittent, Less than 6 Hours Per Day (ICD-10-PCS; 2019-01-30)
DX: A41.9 Sepsis, unspecified organism (principal); J96.01 Acute respiratory failure with hypoxia; I46.9 Cardiac arrest, cause unspecified; N18.6 End stage renal disease; J18.1 Lobar pneumonia, unspecified organism; I21.4 Non-ST elevation (NSTEMI) myocardial infarction; I50.22 Chronic systolic (congestive) heart failure; I13.2 Hypertensive heart and chronic kidney disease with heart failure and with stage 5 chronic kidney disease, or end stage renal disease; I42.0 Dilated cardiomyopathy; G93.1 Anoxic brain damage, not elsewhere classified; I27.20 Pulmonary hypertension, unspecified; E11.51 Type 2 diabetes mellitus with diabetic peripheral angiopathy without gangrene; E11.65 Type 2 diabetes mellitus with hyperglycemia; E11.22 Type 2 diabetes mellitus with diabetic chronic kidney disease; D69.6 Thrombocytopenia, unspecified; E87.6 Hypokalemia; D63.8 Anemia in other chronic diseases classified elsewhere; Z99.2 Dependence on renal dialysis; Z89.422 Acquired absence of other left toe(s); Z79.82 Long term (current) use of aspirin
CPT/HCPCS: 36415; 36600; 70450; 71045; 80048; 80053; 80061; 80074; 80202; 80320; 82140; 82550; 82553; 82803; 82962; 83735; 83880; 84484; 85007; 85025; 85027; 85610; 86140; 86850; 86900; 86901; 87040; 87070; 87205; 93005; 93010; 94002; 94003; 94640; 94760; 95819; G0378; A9270-GY; G0480; J0610; J0692; J0885; J1644; J1650; J1815; J2250; J2270; J3010; J3370; J3475; J3480; J7030; J7050

== ENCOUNTER 2019-02-19 09:36 | Inpatient (IN) | payer MEDICARE ==
[2019-02-19] MEDS ORDERED: NITRO-BID 2% TP ONE (10:13)
[2019-02-19] MEDS ORDERED: ZOFRAN IV ONE (10:14)
[2019-02-19] MEDS ORDERED: SUBLIMAZE IV ONE (10:14)
--- NOTE | 2019-02-19 10:22 | Emergency Department Report ---
HPI - General Time Seen by Provider: 02/19/19 10:05 - HPI HPI: Room 6 The patient is a 78-year-old female presenting with a chief complaint of chest pain. The patient states she was receiving hemodialysis and had 30 minutes left which developed chest pain or palpitation. States chest pain began to radiate to her abdomen and felt sharp in nature. Patient states she became short of breath but denies nausea/vomiting or diaphoresis. Patient was administered 2 nitroglycerin and her chest pain resolved. Patient admits to pleurisy Location: [See above] Duration: [See above] Quality: [See above] Severity: [See above] Modifying factors: [see above] Context: [see above] Mode of transportation: [not driving] ED Past Medical Hx - Past Medical History Hx Hypertension: Yes (pul htn) Hx CVA: Yes Hx Congestive Heart Failure: Yes Hx Diabetes: Yes Hx Renal Disease: Yes (Dialysis [id number]) Hx Seizures: Yes Hx Kidney Stones: Yes Additional medical history: poor circulation left leg, Pulmonary HTN. vitamin d defficency - Surgical History Additional Surgical History: L foot amputation of toes; AV Fistula Upper R arm, PAD with lower extremity bypass - Family History Family history: no significant - Social History Smoking Status: Never Smoker Substance Use Type: None - Medications Home Medications: Home Medications Medication Instructions Recorded Confirmed Last Taken Type Ferrous Sulfate [Iron 325 MG] 325 mg PO DAILY 01/04/19 01/22/19 01/03/19 History Aspirin EC 81 mg PO QDAY #30 tablet. 01/07/19 01/22/19 Unknown Rx Clopidogrel [Plavix] 75 mg PO QDAY #30 tablet 01/07/19 01/22/19 Unknown Rx Metoprolol [Lopressor TAB] 50 mg PO BID #60 tablet 01/07/19 01/22/19 Unknown Rx Pravastatin [Pravachol] 20 mg PO QHS #30 tablet 01/07/19 01/22/19 Unknown Rx Enoxaparin [Lovenox] 30 mg SUB-Q QDAY@2200 syringe 01/31/19 Unknown Rx Famotidine [Pepcid] 20 mg PO DAILY tablet 01/31/19 Unknown Rx Lisinopril [Zestril TAB] 2.5 mg PO QDAY tablet 01/31/19 Unknown Rx Lispro Insulin [HumaLOG] 0 unit SUB-Q ACHS units 01/31/19 Unknown Rx Min Oil/Petrolatum [Artificial 1 applic OU Q4HR PRN tube 01/31/19 Unknown Rx Tears Ophth Oint] guaiFENesin DM [Guaifenesin Dm 10 ml PO Q4H PRN oral.liqd 01/31/19 Unknown Rx Syrup] ED Review of Systems ROS: Stated complaint: CHEST PAINS Other details as noted in HPI Constitutional: denies: diaphoresis Eyes: denies: eye pain ENT: denies: throat pain Respiratory: shortness of breath, other (pleurisy) Cardiovascular: chest pain Endocrine: no symptoms reported Gastrointestinal: abdominal pain. denies: nausea, vomiting Genitourinary: denies: abnormal menses Musculoskeletal: denies: back pain Neurological: denies: headache Physical Exam - Physical Exam Physical Exam: GENERAL: The patient is well-developed well-nourished female lying on stretcher not appearing to be in acute distress. [] HEENT: Normocephalic. Atraumatic. Extraocular motions are intact. Patient has moist mucous membranes. NECK: Supple. Trachea midline CHEST/LUNGS: Clear to auscultation. There is no respiratory distress noted. HEART/CARDIOVASCULAR: Regular. There is no tachycardia. There is no gallop rub or murmur. ABDOMEN: Abdomen is soft, nontender. Patient has normal bowel sounds. There is no abdominal distention. SKIN: There is no rash. There is no edema. There is no diaphoresis. NEURO: The patient is awake, alert, and oriented. The patient is cooperative. The patient has normal speech MUSCULOSKELETAL: There is no evidence of acute injury. ED Medical Decision Making - Lab Data Result diagrams: 02/19/19 10:22 02/19/19 10:22 Laboratory Tests 02/19/19 02/19/19 02/19/19 10:22 10:22 10:22 WBC 4.1 L RBC 4.73 Hgb 12.4 Hct 38.5 MCV 82 MCH 26 L MCHC 32 RDW 18.6 H Plt Count 205 Lymph % (Auto) 17.3 [place] % (Auto) 12.5 H Eos % (Auto) 3.5 Baso % (Auto) 1.1 Lymph # 0.7 L [place] # 0.5 Eos # 0.1 Baso # 0.0 Seg Neutrophils % 65.6 Seg Neutrophils # 2.7 D-Dimer 1064.26 H Sodium 139 Potassium 4.6 Chloride 96.8 L Carbon Dioxide 30 Anion Gap 17 BUN 14 Creatinine 2.7 H Estimated GFR 21 BUN/Creatinine Ratio 5 Glucose 78 Calcium 9.0 Total Creatine Kinase 60 CK-MB (CK-2) 2.3 CK-MB (CK-2) Rel Index 3.8 Troponin T 0.135 H* Triglycerides 98 Cholesterol 169 LDL Cholesterol Direct 76 HDL Cholesterol 79 H Cholesterol/HDL Ratio 2.13 Lipase 13 - EKG Data -: EKG Interpreted by Me EKG shows normal: sinus rhythm Rate: normal - EKG Data When compared to previous EKG there are: previous EKG unavailable Interpretation: nonspecific ST-T wave harleen (T-wave inversions in leads 2, 3, V4, V5, V6) - Radiology Data Radiology results: report reviewed (CT chest), image reviewed (CT chest) [place] [address] Cat Scan Report Signed Patient: JEIMY GALEANO MR#: [id number] : 1940 Acct:[id number] Age/Sex: 78 / F ADM Date: 02/19/19 Loc: ED Attending Dr: Ordering Physician: MARYSOL THAYER MD Date of Service: 02/19/19 Procedure(s): CT angio chest Accession Number(s): [id number] cc: MARYSOL THAYER MD PROCEDURE: CT ANGIO CHEST TECHNIQUE: CT angiography of the chest was performed. IV contrast was administered. Axial images and coronal and sagittal reformatted images were obtained. Rotational MIP reformatted images were also obtained. HISTORY: chest pain, pleurisy COMPARISON: None FINDINGS: There is generalized edema. There are small to moderate pleural effusions. There is adjacent atelectasis involving lower lobes. There is a cluster of nodularity in the right middle lobe with largest nodule measuring about 8 mm. There is a cluster of nodularity in the right lower lobe with largest nodule measuring about 9 mm. There is no pneumothorax. There are atherosclerotic calcifications in the thoracic aorta. There are coronary artery calcifications. There is no aortic dissection seen. There are no abnormal pulmonary arterial filling defects seen to indicate acute pulmonary emboli. There is no abnormal mediastinal or hilar mass seen. Images through the upper abdomen demonstrate numerous renal cysts randy aterally. There is no abnormal mediastinal or hilar mass seen. IMPRESSION: There is no aortic dissection or pulmonary embolism seen. Small to moderate bilateral pleural effusions with adjacent compressive atelectasis. Coronary and aortic atherosclerotic calcifications. Generalized edema. There are clusters of nodularity in right middle lobe and right lower lobe. This is nonspecific. Distribution is atypical for malignancy. It could be bronchiolitis although nodular areas are slightly larger than typical. Recommend follow-up in 3-6 months and 18-24 months if stable. Numerous renal cysts bilaterally. This document is electronically signed by Amelia De Dios MD., February 19 2019 02:01:18 PM ET Transcribed By: ROSENDO Dictated By: AMELIA DE DIOS MD Electronically Authenticated By: AMELIA DE DIOS MD Signed Date/Time: 02/19/19 1404 DD/ 1223 TD/TT: 02/19/19 1223 - Differential Diagnosis ACS, PE, pericarditis, Critical care attestation.: If time is entered above; I have spent that time in minutes in the direct care of this critically ill patient, excluding procedure time. ED Disposition Clinical Impression: Chest pain Disposition: DC-09 OP ADMIT IP TO THIS HOSP Is pt being admited?: Yes Does the pt Need Aspirin: Yes Condition: Fair Instructions: Chest Pain (ED) Referrals: ASHWIN ZAMORA MD [Primary Care Provider] - 3-5 Days Time of Disposition: 14:08 (Hospitalist paged (Dr Mireles))
[2019-02-19 10:42] LABS: Basophils % (Auto) 1.1 % (0.0-1.8); Eosinophils # (Auto) 0.1 K/mm3 (0.0-0.4); Eosinophils % (Auto) 3.5 % (0.0-4.3); Hematocrit 38.5 % (30.3-42.9); Hemoglobin 12.4 gm/dl (10.1-14.3); Lymphocytes # (Auto) 0.7 K/mm3 (1.2-5.4); Lymphocytes % (Auto) 17.3 % (13.4-35.0); Mean Corpuscular HGB Conc 32 % (30-34); Mean Corpuscular Volume 82 fl (79-97); Monocytes # (Auto) 0.5 K/mm3 (0.0-0.8); Monocytes % (Auto) 12.5 % (0.0-7.3); Platelet Count 205 K/mm3 (140-440); Red Blood Count 4.73 M/mm3 (3.65-5.03); Red Cell Distribution Width 18.6 % (13.2-15.2)
[2019-02-19 11:02] LABS: Creatine Kinase MB 2.3 ng/mL (0.0-4.0)
[2019-02-19 12:44] LABS: Chol/HDL Ratio 2.13 %
--- NOTE | 2019-02-19 14:04 | Cat Scan Report ---
PROCEDURE: CT ANGIO CHEST TECHNIQUE: CT angiography of the chest was performed. IV contrast was administered. Axial images and coronal and sagittal reformatted images were obtained. Rotational MIP reformatted images were also ob tained. HISTORY: chest pain, pleurisy COMPARISON: None FINDINGS: There is generalized edema. There are small to moderate pleural effusions. There is adjacent atelectasis involving lower lobes. There is a cluster of nodularity in the right middle lobe with largest nodule measuring about 8 mm. T here is a cluster of nodularity in the right lower lobe with largest nodule measuring about 9 mm. There is no pneumothorax. There are atherosclerotic calcifications in the thoracic aorta. There are coronary artery calcifications. There is no aortic dissection seen. There are no abnormal pulmonary arterial filling defects seen to indicate acute pulmonary emboli. There is no abnormal mediastinal or hilar mass seen. Images through the upper abdomen demonstrate numerous renal cysts bilaterally. There is no abnormal m ediastinal or hilar mass seen. IMPRESSION: There is no aortic dissection or pulmonary embolism seen. Small to moderate bilateral pleural effusions with adjacent compressive atelectasis. Coronary and aortic atherosclerotic calcifications. Generalized edema. There are clusters of nodularity in right middle lobe and right lower lobe. This is nonspecific. Dist ribution is atypical for malignancy. It could be bronchiolitis although nodular areas are slightly la rger than typical. Recommend follow-up in 3-6 months and 18-24 months if stable. Numerous renal cysts bilaterally. This document is electronically signed by Amelia De Dios MD., February 19 2019 02:01:18 PM ET
[2019-02-19] MEDS ORDERED: ASPIRIN PO ONE (14:08)
--- NOTE | 2019-02-19 14:17 | History and Physical Report ---
History of Present Illness Chief complaint: I just dont feel good, Im weak, and im just tired History of present illness: 78 YO Female with ESRD on HD (T,R,Sa ), DM, HTN, CVA, PVD S/P Bypass surgery, Pulmonary HTN, Systolic CHF(EF 10%), Severe Malnutrition, Seizure Disorder presents to ED for evaluation. Pt states that she was undergoing dialysis today and experienced a sudden onset of loss of chest discomfort, weakness, and shortness of breath. Pt reports being given nitro tablets with improvementin symptoms after about 30minutes. EMS notified, and upon arrival the patient was found to be in distress and subsequently transported to [facility] Pt seen and evaluated in ED and found to have ESRD, as well as symptoms consistent with CHF Decompensation. Pt denies fever, chills, palpitations, NVD, Trauma, BRBPR, Pro ductive cough, skin rash, unilateral leg swelling, calf pain, prolonged travel/immobility, individual/family history of DVT/PE. Pt admitted to Telemetry. Cardiology, and Nephrology teams consulted in ED. Prior admission on 01/22/19 reviewed. All listed medication reconciled at time of admission. 35 mi nutes additional time spent discussing Advance care planning and end of life care with son and patient. CT Chest reveals RLL/RML lung nodule. Past History Past Medical History: diabetes, ESRD, heart failure, PVD, seizures, other (Pulmonary HTN) Past Surgical History: Other (AVF placement, foot surgery, lower extremity bypasssurgery) Social history: . denies: smoking, alcohol abuse, prescription drug abuse Family history: CAD, diabetes, hypertension Medications and Allergies Allergies Allergy/AdvReac Type Severity Reaction Status Date / Time phenytoin sodium Allergy Anaphylaxis Verified 05/08/16 07:07 [From Dilantin] phenytoin sodium extended Allergy Anaphylaxis Verified 05/08/16 07:07 [From Dilantin] Home Medications Medication Instructions Recorded Confirmed Last Taken Type Ferrous Sulfate [Iron 325 MG] 325 mg PO DAILY 01/04/19 01/22/19 01/03/19 History Aspirin EC 81 mg PO QDAY #30 tablet. 01/07/19 01/22/19 Unknown Rx Clopidogrel [Plavix] 75 mg PO QDAY #30 tablet 01/07/19 01/22/19 Unknown Rx Metoprolol [Lopressor TAB] 50 mg PO BID #60 tablet 01/07/19 01/22/19 Unknown Rx Pravastatin [Pravachol] 20 mg PO QHS #30 tablet 01/07/19 01/22/19 Unknown Rx Enoxaparin [Lovenox] 30 mg SUB-Q QDAY@2200 syringe 01/31/19 Unknown Rx Famotidine [Pepcid] 20 mg PO DAILY tablet 01/31/19 Unknown Rx Lisinopril [Zestril TAB] 2.5 mg PO QDAY tablet 01/31/19 Unknown Rx Lispro Insulin [HumaLOG] 0 unit SUB-Q ACHS units 01/31/19 Unknown Rx Min Oil/Petrolatum [Artificial 1 applic OU Q4HR PRN tube 01/31/19 Unknown Rx Tears Ophth Oint] guaiFENesin DM [Guaifenesin Dm 10 ml PO Q4H PRN oral.liqd 01/31/19 Unknown Rx Syrup] Review of Systems Constitutional: fatigue, weakness, no weight loss, no weight gain, no fever, no chills, no sweats Ears, nose, mouth and throat: no ear pain, no ear discharge, no tinnitis, no decreased hearing, no nose pain, no nasal congestion Breasts: no change in shape, no swelling, no mass Cardiovascular: no chest pain, no orthopnea, no palpitations Respiratory: no cough, no cough with sputum, no excessive sputum Gastrointestinal: no abdominal pain, no nausea, no vomiting, no diarrhea Genitourinary Female: no pelvic pain, no flank pain, no menorrhagia, no dysuria Rectal: no pain, no incontinence, no bleeding Musculoskeletal: no neck stiffness, no neck pain, no shooting arm pain, no arm numbness/tingling, no low back pain, no shooting leg pain Integumentary: no rash, no pruritis, no sores, no wounds, no jaundice Neurological: no head injury, no transient paralysis, no paralysis, no weakness, no parathesias, no numbness, no tingling Psychiatric: no anxiety, no memory loss, no change in sleep habits, no sleep disturbances, no change in appetite Endocrine: no cold intolerance, no heat intolerance, no polyphagia, no excessive thirst, no polydipsia, no polyuria, no nocturia Hematologic/Lymphatic: no easy bruising, no easy bleeding, no lymphadenopathy, no lymphedema Allergic/Immunologic: no urticaria, no allergic rhinitis, no wheezing, no persistent infections, no anaphylaxis Exam - Constitutional Vitals: Temp Pulse Resp BP Pulse Ox 98.9 F 89 16 143/89 96 02/19/19 10:10 02/19/19 11:38 02/19/19 11:38 02/19/19 11:38 02/19/19 11:38 General appearance: Present: mild distress, cachectic - EENT Eyes: Present: PERRL ENT: hearing intact, clear oral mucosa - Neck Neck: Present: supple, normal ROM - Respiratory Respiratory effort: normal Respiratory: bilateral: diminished, rhonchi - Cardiovascular Heart Sounds: Present: S1 & S2. Absent: rub, click - Extremities Extremities: pulses symmetrical, No edema Peripheral Pulses: within normal limits - Abdominal General gastrointestinal: Present: soft, non-tender, non-distended, normal bowel sounds Female genitourinary: Present: normal - Integumentary Integumentary: Present: clear, warm, dry - Musculoskeletal Musculoskeletal: gait normal, strength equal bilaterally - Psychiatric Psychiatric: appropriate mood/affect, intact judgment & insight - Neurologic Neurologic: CNII-XII intact, moves all extremities Results - Labs CBC & Chem 7: 02/19/19 10:22 02/19/19 10:22 Labs: Abnormal lab results 02/19/19 02/19/19 02/19/19 Range/Units 10:22 10:22 10:22 WBC 4.1 L (4.5-11.0) K/mm3 MCH 26 L (28-32) pg RDW 18.6 H (13.2-15.2) % [place] % (Auto) 12.5 H (0.0-7.3) % Lymph # 0.7 L (1.2-5.4) K/mm3 D-Dimer 1064.26 H (0-234) ng/mlDDU Chloride 96.8 L (98-107) mmol/L Creatinine 2.7 H (0.7-1.2) mg/dL Troponin T 0.135 H* (0.00-0.029) ng/mL HDL Cholesterol 79 H (40-59) mg/dL Assessment and Plan - Patient Problems (1) ESRD (end stage renal disease) Current Visit: Yes Status: Acute Plan to address problem: Nephrology consulted in ED, dialysis as per renal team, strict I/O, daily weight, monitor uop q shift, avoid nephrotoxic agents. (2) Lung nodule Current Visit: Yes Status: Acute Plan to address problem: Outpatient pulmonary F/U, possible biopsy. Risks/Benefits discussed as part of advanced care planning. (3) Severe malnutrition Current Visit: Yes Status: Acute Plan to address problem: Increased protein intake, dietary supplementation (4) Acute combined systolic and diastolic heart failure Current Visit: No Status: Acute Plan to address problem: Strict I/O, daily weight, afterload reduction, cardiology consulted in ED, supplemental oxygen, pulse oximetry, continue medical management. (5) Pulmonary hypertension Current Visit: No Status: Acute Plan to address problem: supplemental oxygen, supportive care, treat chf, (6) Diabetes Current Visit: Yes Status: Acute Plan to address problem: ADA diet, insulin, accu check, hypoglycemia protocol (7) PVD (peripheral vascular disease) Current Visit: Yes Status: Acute Plan to address problem: supportive care, pain control: POA (8) Seizure disorder Current Visit: Yes Status: Acute Plan to address problem: supportive care: POA (9) DVT prophylaxis Current Visit: No Status: Acute Plan to address problem: SCD to BLE while in bed, prophylactic heparin (10) Advance care planning Current Visit: Yes Status: Acute Plan to address problem: 30 minutes, Discussed with patient and son at time of admission.
[2019-02-19] MEDS ORDERED: SODIUM CHLORIDE FLUSH SYRINGE 10 ML IV PRN (14:26)
[2019-02-19] MEDS ORDERED: ZOFRAN IV PRN (14:26)
[2019-02-19] MEDS ORDERED: TYLENOL PO PRN (14:26)
[2019-02-19] MEDS ORDERED: PROVENTIL IH PRN (14:26)
[2019-02-19] MEDS ORDERED: ARTIFICIAL TEARS OPHTH OINT OU PRN (21:26)
[2019-02-19] MEDS: PRAVACHOL PO SCH (22:44)
[2019-02-19] MEDS: LOPRESSOR PO SCH (22:44)
[2019-02-19] MEDS: LOVENOX SUB-Q SCH (22:45)
[2019-02-19] MEDS: SODIUM CHLORIDE FLUSH SYRINGE 10 ML IV SCH (22:45)
[2019-02-19] MEDS: HumaLOG SUB-Q SCH (22:46)
[2019-02-20] MEDS: HumaLOG SUB-Q SCH ×4 (08:26→21:47)
[2019-02-20 08:30] LABS: Basophils % (Auto) 1.2 % (0.0-1.8); Eosinophils # (Auto) 0.1 K/mm3 (0.0-0.4); Eosinophils % (Auto) 4.1 % (0.0-4.3); Hematocrit 35.5 % (30.3-42.9); Hemoglobin 11.5 gm/dl (10.1-14.3); Lymphocytes # (Auto) 0.7 K/mm3 (1.2-5.4); Lymphocytes % (Auto) 22.5 % (13.4-35.0); Mean Corpuscular HGB Conc 32 % (30-34); Mean Corpuscular Volume 81 fl (79-97); Monocytes # (Auto) 0.4 K/mm3 (0.0-0.8); Platelet Count 168 K/mm3 (140-440); Red Blood Count 4.36 M/mm3 (3.65-5.03)
[2019-02-20 09:08] LABS: BUN/Creatinine Ratio 6; Blood Urea Nitrogen 24 mg/dL (7-17); Calcium 7.8 mg/dL (8.4-10.2); Hemolysis Index 10
[2019-02-20 09:12] LABS: Alanine Aminotransferase < 5 units/L (7-56)
[2019-02-20] MEDS: ZESTRIL PO SCH (09:35)
[2019-02-20] MEDS: FEOSOL PO SCH (09:36)
[2019-02-20] MEDS: LOPRESSOR PO SCH ×2 (09:36→21:48)
[2019-02-20] MEDS: PLAVIX PO SCH (09:36)
[2019-02-20] MEDS: PEPCID PO SCH (09:37)
[2019-02-20] MEDS: HALFPRIN EC PO SCH (09:37)
[2019-02-20] MEDS: SODIUM CHLORIDE FLUSH SYRINGE 10 ML IV SCH ×2 (09:37→21:49)
--- NOTE | 2019-02-20 11:37 | Progress Note ---
Assessment and Plan Assessment and plan: (1) ESRD (end stage renal disease) Current Visit: Yes Status: Acute Plan to address problem: Nephrology consulted in ED, dialysis as per renal team, strict I/O, daily weight, monitor uop q shift, avoid nephrotoxic agents. (2) Lung nodule Current Visit: Yes Status: Acute Plan to address problem: Outpatient pulmonary F/U, possible biopsy. Risks/Benefits discussed as part of advanced care planning. (3) Severe malnutrition Current Visit: Yes Status: Acute Plan to address problem: Increased protein intake, dietary supplementation (4) Acute combined systolic and diastolic heart failure Current Visit: No Status: Acute Plan to address problem: Strict I/O, daily weight, afterload reduction, cardiology consulted in ED, supplemental oxygen, pulse oximetry, continue medical management. (5) Pulmonary hypertension Current Visit: No Status: Acute Plan to address problem: supplemental oxygen, supportive care, treat chf, (6) Diabetes Current Visit: Yes Status: Acute Plan to address problem: ADA diet, insulin, accu check, hypoglycemia protocol (7) PVD (peripheral vascular disease) Current Visit: Yes Status: Acute Plan to address problem: supportive care, pain control: POA (8) Seizure disorder Current Visit: Yes Status: Acute Plan to address problem: supportive care: POA (9) DVT prophylaxis Current Visit: No Status: Acute Plan to address problem: SCD to BLE while in bed, prophylactic heparin (10) Advance care planning Current Visit: Yes Status: Acute Plan to address problem: 30 minutes, Discussed with patient and son at time of admission. History Interval history: Patient seen and examined medical records reviewed Patient complains of generalized weakness Patient wants acute versus subacute rehabilitation placement Denies chest pain or shortness of breath Vital signs noted Hospitalist Physical - Constitutional Vitals: Temp Pulse Resp BP Pulse Ox 98.0 F 73 18 126/59 100 02/20/19 08:06 02/20/19 09:36 02/20/19 08:06 02/20/19 09:36 02/20/19 08:06 General appearance: Present: mild distress, cachectic - EENT Eyes: Present: PERRL, EOM intact - Neck Neck: Present: supple, normal ROM - Respiratory Respiratory effort: normal Respiratory: bilateral: diminished, negative: rales, rhonchi, wheezing - Cardiovascular Rhythm: regular Heart Sounds: Present: S1 & S2 - Extremities Extremities: no ischemia, pulses intact - Abdominal General gastrointestinal: soft, non-tender, non-distended, normal bowel sounds - Integumentary Integumentary: Present: clear, warm - Psychiatric Psychiatric: appropriate mood/affect, cooperative - Neurologic Neurologic: CNII-XII intact, moves all extremities Results - Labs CBC & Chem 7: 02/20/19 07:30 02/20/19 07:30 Labs: Laboratory Last Values WBC 3.2 K/mm3 (4.5-11.0) L 02/20/19 07:30 RBC 4.36 M/mm3 (3.65-5.03) 02/20/19 07:30 Hgb 11.5 gm/dl (10.1-14.3) 02/20/19 07:30 Hct 35.5 % (30.3-42.9) 02/20/19 07:30 MCV 81 fl (79-97) 02/20/19 07:30 MCH 26 pg (28-32) L 02/20/19 07:30 MCHC 32 % (30-34) 02/20/19 07:30 RDW 19.0 % (13.2-15.2) H 02/20/19 07:30 Plt Count 168 K/mm3 (140-440) 02/20/19 07:30 Lymph % (Auto) 22.5 % (13.4-35.0) 02/20/19 07:30 [place] % (Auto) 14.0 % (0.0-7.3) H 02/20/19 07:30 Eos % (Auto) 4.1 % (0.0-4.3) 02/20/19 07:30 Baso % (Auto) 1.2 % (0.0-1.8) 02/20/19 07:30 Lymph # 0.7 K/mm3 (1.2-5.4) L 02/20/19 07:30 [place] # 0.4 K/mm3 (0.0-0.8) 02/20/19 07:30 Eos # 0.1 K/mm3 (0.0-0.4) 02/20/19 07:30 Baso # 0.0 K/mm3 (0.0-0.1) 02/20/19 07:30 Seg Neutrophils % 58.2 % (40.0-70.0) 02/20/19 07:30 Seg Neutrophils # 1.9 K/mm3 (1.8-7.7) 02/20/19 07:30 1064.26 ng/mlDDU (0-234) H 02/19/19 10:22 Sodium 141 mmol/L (137-145) 02/20/19 07:30 Potassium 4.5 mmol/L (3.6-5.0) 02/20/19 07:30 Chloride 100.6 mmol/L (98-107) 02/20/19 07:30 Carbon Dioxide 27 mmol/L (22-30) 02/20/19 07:30 18 mmol/L 02/20/19 07:30 BUN 24 mg/dL (7-17) H 02/20/19 07:30 3.9 mg/dL (0.7-1.2) H 02/20/19 07:30 Estimated GFR 13 ml/min 02/20/19 07:30 6 % 02/20/19 07:30 Glucose 72 mg/dL (65-100) 02/20/19 07:30 POC Glucose 106 (70-105) H 02/20/19 08:10 Calcium 7.8 mg/dL (8.4-10.2) L 02/20/19 07:30 0.30 mg/dL (0.1-1.2) 02/20/19 07:30 AST 10 units/L (5-40) 02/20/19 07:30 ALT < 5 units/L (7-56) L 02/20/19 07:30 145 units/L (35-129) H 02/20/19 07:30 60 units/L (30-135) 02/19/19 10:22 CK-MB (CK-2) 2.3 ng/mL (0.0-4.0) 02/19/19 10:22 CK-MB (CK-2) Rel Index 3.8 (0-4) 02/19/19 10:22 0.135 ng/mL (0.00-0.029) H* 02/19/19 10:22 NT-Pro-B Natriuret Pep > 57534 pg/mL (0-900) H 02/19/19 10:27 6.3 g/dL (6.3-8.2) 02/20/19 07:30 3.0 g/dL (3.9-5) L 02/20/19 07:30 0.9 % 02/20/19 07:30 Triglycerides 98 mg/dL (2-149) 02/19/19 10:22 Cholesterol 169 mg/dL (50-199) 02/19/19 10:22 76 mg/dL (50-130) 02/19/19 10:22 79 mg/dL (40-59) H 02/19/19 10:22 2.13 % 02/19/19 10:22 13 units/L (13-60) 02/19/19 10:22 Active Medications - Current Medications Current Medications: Generic Name Dose Route Start Last Admin Trade Name Freq PRN Reason Stop Dose Admin Acetaminophen 650 mg 02/19/19 14:26 02/20/19 07:44 Tylenol PO 650 mg Q4H PRN Administration Pain MILD(1-3)/Fever >100.5/KEE Albuterol 2.5 mg 02/19/19 14:26 Proventil IH Q4HRT PRN Shortness Of Breath Aspirin 81 mg 02/20/19 10:00 02/20/19 09:37 Halfprin Ec PO 81 mg QDAY LUCIO Administration Clopidogrel Bisulfate 75 mg 02/20/19 10:00 02/20/19 09:36 Plavix PO 75 mg QDAY LUCIO Administration Enoxaparin Sodium 30 mg 02/19/19 22:00 02/19/19 22:45 Lovenox SUB-Q 30 mg QDAY@2200 LUCIO Administration Famotidine 20 mg 02/20/19 10:00 02/20/19 09:37 Pepcid PO 20 mg DAILY LUCIO Administration Ferrous Sulfate 325 mg 02/20/19 10:00 02/20/19 09:36 Feosol PO 325 mg DAILY LUCIO Administration Guaifenesin 10 ml 02/19/19 21:26 Guaifenesin Dm Syrup PO Q4H PRN Cough Insulin Human Lispro 0 unit 02/19/19 22:00 02/20/19 08:26 Humalog SUB-Q Not Given ACHS LUCIO Protocol Lisinopril 2.5 mg 02/20/19 10:00 02/20/19 09:35 Zestril PO 2.5 mg QDAY LUCIO Administration Metoprolol Tartrate 50 mg 02/19/19 22:00 02/20/19 09:36 Lopressor PO 50 mg BID LUCIO Administration Multi-Ingred Cream/Lotion/Oil/Oint 1 applic 02/19/19 21:26 Artificial Tears Ophth Oint OU Q4HR PRN Dry Eye(s) Ondansetron HCl 4 mg 02/19/19 14:26 Zofran IV Q8H PRN Nausea And Vomiting Pravastatin Sodium 20 mg 02/19/19 22:00 02/19/19 22:44 Pravachol PO 20 mg QHS LUCIO Administration Sodium Chloride 10 ml 02/19/19 22:00 02/20/19 09:37 Sodium Chloride Flush Syringe 10 Ml IV 10 ml BID LUCIO Administration Sodium Chloride 10 ml 02/19/19 14:26 Sodium Chloride Flush Syringe 10 Ml IV PRN PRN LINE FLUSH
[2019-02-20] MEDS: LOVENOX SUB-Q SCH (21:47)
[2019-02-20] MEDS: PRAVACHOL PO SCH (21:48)
[2019-02-21 06:47] LABS: Albumin 2.9 g/dL (3.9-5)
[2019-02-21 06:55] LABS: Alanine Aminotransferase < 5 units/L (7-56); Bilirubin,Direct < 0.2 mg/dL (0-0.2)
[2019-02-21 08:14] VITALS: BP 137/70
[2019-02-21] MEDS: HumaLOG SUB-Q SCH ×2 (08:23→12:58)
[2019-02-21] MEDS: ZESTRIL PO SCH (09:46)
[2019-02-21] MEDS: PLAVIX PO SCH (09:48)
[2019-02-21] MEDS: LOPRESSOR PO SCH (09:48)
[2019-02-21] MEDS: PEPCID PO SCH (09:49)
[2019-02-21] MEDS: FEOSOL PO SCH (09:49)
[2019-02-21] MEDS: HALFPRIN EC PO SCH (09:49)
[2019-02-21] MEDS: SODIUM CHLORIDE FLUSH SYRINGE 10 ML IV SCH (09:50)
--- NOTE | 2019-02-21 12:09 | Discharge Summary ---
Providers - Providers Date of Admission: 02/19/19 14:26 Date of discharge: 02/21/19 Attending physician: KRISTI CURIEL 02/21/19 10:37 Consult to Physician [CONS] Routine Comment: Consulting Provider: KALEB CHOUDHARY Physician Instructions: Reason For Exam: ESRD Primary care physician: ASHWIN ZAMORA Hospitalization Reason for admission: worsening shortness of breath during dialysis today Condition: Fair Pertinent studies: CTA chest Hospital course: 78 YO Female with ESRD on HD (T,R,Sa ), DM, HTN, CVA, PVD S/P Bypass surgery, Pulmonary HTN, Systolic CHF(EF 10%), Severe Malnutrition, Seizure Disorder presents to ED for evaluation. Pt states that she was undergoing dialysis today and experienced a sudden onset of loss of chest discomfort, weakness, and shortness of breath. Pt reports being given nitro tablets with improvementin symptoms after about 30minutes. EMS notified, and upon arrival the patient was found to be in distress and subsequently transported to [facility].. Pt seen and evaluated in ED and found to have ESRD, as well as symptoms consistent with CHF Decompensation. Managed with antifailure medications,received HD per schedule, Symptoms improved,Today patient is comfortable,no new complaints, vital signs are stable Physical exam is unremarkable. Stable at discharge. Discharge Diagnosis: -- Acute combined systolic and diastolic heart failure: Cardiology evaluated,medications optimised input, out put monitoring EF 10-15% -- ESRD (end stage renal disease): Nephrology evaluated, received dialysis as per schedule, strict I/O, daily weight, monitor uop q shift, avoid nephrotoxic agents. -- Lung nodule Outpatient pulmonary F/U, possible biopsy and further work up --Severe malnutrition Increased protein intake, dietary supplementation -- Pulmonary hypertension supplemental oxygen, supportive care, treat chf, --Diabetes ADA diet, insulin, accu check, hypoglycemia protocol -- PVD (peripheral vascular disease) supportive care, pain control: POA -- Seizure disorder supportive care: POA --DVT prophylaxis SCD to BLE while in bed, prophylactic heparin advised to f/u PMD,Pulm per schedule upon discharge Disposition: TO HOME OR SELFCARE Time spent for discharge: 32 min Core Measure Documentation - Palliative Care Palliative Care/ Comfort Measures: Not Applicable - Core Measures Any of the following diagnoses?: none Exam - Constitutional Vitals: Temp Pulse Resp BP Pulse Ox 97.9 F 71 18 137/70 100 02/21/19 08:06 02/21/19 09:48 02/21/19 08:06 02/21/19 09:48 02/21/19 08:14 General appearance: Present: no acute distress, well-nourished - EENT Eyes: Present: PERRL, EOM intact - Neck Neck: Present: supple, normal ROM - Respiratory Respiratory effort: normal Respiratory: bilateral: diminished, negative: rales, rhonchi, wheezing - Cardiovascular Rhythm: regular Heart Sounds: Present: S1 & S2 - Extremities Extremities: no ischemia, No edema - Abdominal General gastrointestinal: Present: soft, non-tender, non-distended, normal bowel sounds - Integumentary Integumentary: Present: clear, warm - Musculoskeletal Musculoskeletal: strength equal bilaterally, generalized weakness - Psychiatric Psychiatric: appropriate mood/affect, cooperative - Neurologic Neurologic: CNII-XII intact, moves all extremities Plan Activity: advance as tolerated, fall precautions Diet: renal Special Instructions: physical therapy Additional Instructions: Fall precautions. HD per schedule Follow up with: ASHWIN ZAMORA MD [Primary Care Provider] - 3-5 Days LY RUDOLPH MD [Staff Physician] - 7 Days
== END 2019-02-21 13:30 | disposition home or self-care (01) | DRG 291 ==
LOC: ED 09:36 → 4A 14:26
PROVIDERS: ADMIT Internal Medicine; ATTEND Internal Medicine
DX: I13.2 Hypertensive heart and chronic kidney disease with heart failure and with stage 5 chronic kidney disease, or end stage renal disease (principal); N18.6 End stage renal disease; E43 Unspecified severe protein-calorie malnutrition; I50.43 Acute on chronic combined systolic (congestive) and diastolic (congestive) heart failure; Z68.1 Body mass index [BMI] 19.9 or less, adult; R91.1 Solitary pulmonary nodule; E11.22 Type 2 diabetes mellitus with diabetic chronic kidney disease; I27.20 Pulmonary hypertension, unspecified; R07.9 Chest pain, unspecified; G40.909 Epilepsy, unspecified, not intractable, without status epilepticus; E11.51 Type 2 diabetes mellitus with diabetic peripheral angiopathy without gangrene; E55.9 Vitamin D deficiency, unspecified; Z99.2 Dependence on renal dialysis; Z86.73 Personal history of transient ischemic attack (TIA), and cerebral infarction without residual deficits; Z89.422 Acquired absence of other left toe(s)
CPT/HCPCS: 36415; 71275; 80048; 80053; 80061; 80076; 82550; 82553; 82962; 83690; 83880; 84484; 85025; 85379; 93005; 93010; 94760; G0378; A9270-GY; J1650; J2405; J3010; Q9967

== ENCOUNTER 2019-04-06 16:35 | Inpatient (IN) | payer MEDICARE ==
--- NOTE | 2019-04-06 17:08 | Event Note ---
ED Screening Note Date of service: 04/06/19 Time: 17:03 ED Screening Note: This is a 79 y.o. F. that presents to the ER with SOB and blisters to both feet, worse on right. Patient reports SOB for 4-5 weeks and bilateral peripheral edema for a few days. PMH DM, HTN, ESRD on dialysis dialysis Thursday, , & Thursday This initial assessment/diagnostic orders/clinical plan/treatment(s) is/are subject to change based on patients health status, clinical progression and re- assessment by fellow clinical providers in the ED. Further treatment and workup at subsequent clinical providers discretion. Patient/guardian urged not to elope from the ED as their condition may be serious if not clinically assessed and managed. Initial orders include: Labs and CXR
--- NOTE | 2019-04-06 17:51 | XRay Report ---
CHEST PA AND LATERAL VIEWS INDICATION: SOB and edema. COMPARISON: 01/25/2019. FINDINGS: Support devices: None. Heart: Stable. Lungs/Pleura: There are mild predominantly reticular bibasilar opacities. Trace effusions are noted. Upper lungs are essentially clear. IMPRESSION: 1. Mild somewhat reticular bibasilar opacities could be due to atelectasis. There are small effusions . Signer Name: Nakul Richards MD Signed: 04/06/2019 5:47 PM Workstation Name: [id number]
[2019-04-06 17:53] LABS: Basophils % (Auto) 0.5 % (0.0-1.8); Eosinophils # (Auto) 0.1 K/mm3 (0.0-0.4); Eosinophils % (Auto) 1.4 % (0.0-4.3); Hematocrit 37.9 % (30.3-42.9); Hemoglobin 11.9 gm/dl (10.1-14.3); Lymphocytes # (Auto) 0.7 K/mm3 (1.2-5.4); Lymphocytes % (Auto) 13.1 % (13.4-35.0); Mean Corpuscular HGB Conc 32 % (30-34); Mean Corpuscular Volume 80 fl (79-97); Monocytes # (Auto) 0.5 K/mm3 (0.0-0.8); Monocytes % (Auto) 9.5 % (0.0-7.3); Platelet Count 158 K/mm3 (140-440); Red Blood Count 4.72 M/mm3 (3.65-5.03)
[2019-04-06 18:19] LABS: Alanine Aminotransferase 21 units/L (7-56); Albumin 3.5 g/dL (3.9-5); BUN/Creatinine Ratio 7; Blood Urea Nitrogen 36 mg/dL (7-17); Calcium 8.1 mg/dL (8.4-10.2); Hemolysis Index 13
--- NOTE | 2019-04-06 21:37 | Emergency Department Report ---
ED General Adult HPI - General Chief complaint: Dyspnea/Respdistress Stated complaint: RT FOOT BLISTERS/SOB/FATIGUE Time Seen by Provider: 04/06/19 17:03 Source: patient, family Mode of arrival: Wheelchair Limitations: No Limitations - History of Present Illness Initial comments: Patient presents to the emergency department with a chief complaint of her right foot having blisters and peeling. Patient also complains of numbness and tingling in her right foot as well. Patient states that she discussed this with the plate preparer who gave her a cream to apply on her foot. Patient denies any chest pain, abdominal pain, or headache. -: Gradual Location: lower extremity Consistency: constant Improves with: none Worsens with: none Associated Symptoms: denies other symptoms Treatments Prior to Arrival: none - Related Data Home Medications Medication Instructions Recorded Confirmed Last Taken Ferrous Sulfate [Iron 325 MG] 325 mg PO DAILY 01/04/19 04/06/19 01/03/19 Previous Rx's Medication Instructions Recorded Last Taken Type Aspirin EC [Halfprin EC] 81 mg PO QDAY #30 tablet. 01/07/19 Unknown Rx Clopidogrel [Plavix] 75 mg PO QDAY #30 tablet 01/07/19 Unknown Rx Metoprolol [Lopressor TAB] 50 mg PO BID #60 tablet 01/07/19 Unknown Rx Pravastatin [Pravachol] 20 mg PO QHS #30 tablet 01/07/19 Unknown Rx Famotidine [Pepcid] 20 mg PO DAILY tablet 01/31/19 Unknown Rx Lisinopril [Zestril TAB] 2.5 mg PO QDAY tablet 01/31/19 Unknown Rx Lispro Insulin [HumaLOG] 0 unit SUB-Q ACHS units 01/31/19 Unknown Rx Min Oil/Petrolatum [Artificial 1 applic OU Q4HR PRN tube 01/31/19 Unknown Rx Tears Ophth Oint] guaiFENesin DM [Guaifenesin Dm 10 ml PO Q4H PRN oral.liqd 01/31/19 Unknown Rx Syrup] Allergies Allergy/AdvReac Type Severity Reaction Status Date / Time phenytoin sodium Allergy Anaphylaxis Verified 05/08/16 07:07 [From Dilantin] phenytoin sodium extended Allergy Anaphylaxis Verified 05/08/16 07:07 [From Dilantin] ED Review of Systems ROS: Stated complaint: RT FOOT BLISTERS/SOB/FATIGUE Other details as noted in HPI Comment: All other systems reviewed and negative Constitutional: denies: chills, fever Eyes: denies: eye pain, eye discharge, vision change ENT: denies: ear pain, throat pain Respiratory: denies: cough, shortness of breath, wheezing Cardiovascular: denies: chest pain, palpitations Endocrine: no symptoms reported Gastrointestinal: denies: abdominal pain, nausea, diarrhea Genitourinary: denies: urgency, dysuria, discharge Musculoskeletal: denies: back pain, joint swelling, arthralgia Skin: denies: rash, lesions Neurological: denies: headache, weakness, paresthesias Psychiatric: denies: anxiety, depression Hematological/Lymphatic: denies: easy bleeding, easy bruising ED Past Medical Hx - Past Medical History Previous Medical History?: Yes Hx Hypertension: Yes (pul htn) Hx CVA: Yes Hx Heart Attack/AMI: No Hx Congestive Heart Failure: Yes Hx Diabetes: Yes Hx Deep Vein Thrombosis: No Hx Liver Disease: No Hx Renal Disease: Yes (Dialysis ) Hx Sickle Cell Disease: No Hx Arthritis: No Hx Seizures: Yes Hx Kidney Stones: Yes Hx Asthma: No Hx COPD: No Hx Dementia: No Hx HIV: No Additional medical history: poor circulation left leg, Pulmonary HTN. vitamin d defficency - Surgical History Past Surgical History?: Yes Hx Coronary Stent: No Hx Open Heart Surgery: No Hx Pacemaker: No Hx Internal Defibrillator: No Hx Cholecystectomy: No Hx Appendectomy: No Hx Breast Surgery: No Additional Surgical History: L foot amputation of toes; AV Fistula Upper R arm, PAD with lower extremity bypass - Social History Smoking Status: Never Smoker Substance Use Type: None - Medications Home Medications: Home Medications Medication Instructions Recorded Confirmed Last Taken Type Ferrous Sulfate [Iron 325 MG] 325 mg PO DAILY 01/04/19 04/06/19 01/03/19 History Aspirin EC [Halfprin EC] 81 mg PO QDAY #30 tablet. 01/07/19 04/06/19 Unknown Rx Clopidogrel [Plavix] 75 mg PO QDAY #30 tablet 01/07/19 04/06/19 Unknown Rx Metoprolol [Lopressor TAB] 50 mg PO BID #60 tablet 01/07/19 04/06/19 Unknown Rx Pravastatin [Pravachol] 20 mg PO QHS #30 tablet 01/07/19 04/06/19 Unknown Rx Famotidine [Pepcid] 20 mg PO DAILY tablet 01/31/19 04/06/19 Unknown Rx Lisinopril [Zestril TAB] 2.5 mg PO QDAY tablet 01/31/19 04/06/19 Unknown Rx Lispro Insulin [HumaLOG] 0 unit SUB-Q ACHS units 01/31/19 04/06/19 Unknown Rx Min Oil/Petrolatum [Artificial 1 applic OU Q4HR PRN tube 01/31/19 04/06/19 Unknown Rx Tears Ophth Oint] guaiFENesin DM [Guaifenesin Dm 10 ml PO Q4H PRN oral.liqd 01/31/19 04/06/19 Unknown Rx Syrup] ED Physical Exam - General Limitations: No Limitations General appearance: alert, in no apparent distress - Head Head exam: Present: atraumatic, normocephalic - Eye Eye exam: Present: normal appearance, PERRL, EOMI - ENT ENT exam: Present: mucous membranes moist - Neck Neck exam: Present: normal inspection - Respiratory Respiratory exam: Present: normal lung sounds bilaterally. Absent: respiratory distress - Cardiovascular Cardiovascular Exam: Present: regular rate, normal rhythm. Absent: systolic murmur, diastolic murmur, rubs, gallop - GI/Abdominal GI/Abdominal exam: Present: soft, normal bowel sounds. Absent: distended, tenderness - Extremities Exam Extremities exam: Present: other (patient's diminished pulses to the right foot which is cool to touch; there is a left transmetatarsal amputation; so appears to be some dry gangrene to the fourth and fifth digits of the right foot) - Back Exam Back exam: Present: normal inspection - Neurological Exam Neurological exam: Present: alert, oriented X3, CN II-XII intact. Absent: motor sensory deficit - Psychiatric Psychiatric exam: Present: normal affect, normal mood - Skin Skin exam: Present: warm, dry, intact, normal color. Absent: rash ED Course Vital Signs 04/06/19 04/06/19 04/06/19 19:25 20:01 20:30 Temperature 98 F Pulse Rate 75 74 74 Respiratory 17 13 14 Rate Blood Pressure 135/75 135/75 128/69 Blood Pressure 135/75 [Left] O2 Sat by Pulse 98 100 98 Oximetry ED Medical Decision Making - Lab Data Result diagrams: 04/06/19 17:33 04/06/19 17:33 Lab Results 04/06/19 04/06/19 Range/Units 17:33 17:33 WBC 5.4 (4.5-11.0) K/mm3 RBC 4.72 (3.65-5.03) M/mm3 Hgb 11.9 (10.1-14.3) gm/dl Hct 37.9 (30.3-42.9) % MCV 80 (79-97) fl MCH 25 L (28-32) pg MCHC 32 (30-34) % RDW 18.0 H (13.2-15.2) % Plt Count 158 (140-440) K/mm3 Lymph % (Auto) 13.1 L (13.4-35.0) % Leslie % (Auto) 9.5 H (0.0-7.3) % Eos % (Auto) 1.4 (0.0-4.3) % Baso % (Auto) 0.5 (0.0-1.8) % Lymph # 0.7 L (1.2-5.4) K/mm3 Leslie # 0.5 (0.0-0.8) K/mm3 Eos # 0.1 (0.0-0.4) K/mm3 Baso # 0.0 (0.0-0.1) K/mm3 Seg Neutrophils % 75.5 H (40.0-70.0) % Seg Neutrophils # 4.1 (1.8-7.7) K/mm3 Sodium 139 (137-145) mmol/L Potassium 4.9 (3.6-5.0) mmol/L Chloride 99.1 (98-107) mmol/L Carbon Dioxide 25 (22-30) mmol/L Anion Gap 20 mmol/L BUN 36 H (7-17) mg/dL Creatinine 5.2 H (0.7-1.2) mg/dL Estimated GFR 10 ml/min BUN/Creatinine Ratio 7 % Glucose 118 H (65-100) mg/dL Calcium 8.1 L (8.4-10.2) mg/dL Total Bilirubin 0.40 (0.1-1.2) mg/dL AST 30 (5-40) units/L ALT 21 (7-56) units/L Alkaline Phosphatase 164 H (35-129) units/L NT-Pro-B Natriuret Pep > 25203 H (0-900) pg/mL Total Protein 7.0 (6.3-8.2) g/dL Albumin 3.5 L (3.9-5) g/dL Albumin/Globulin Ratio 1.0 % - Radiology Data Radiology results: report reviewed - Medical Decision Making IV heparin initiated results discussed with patient Critical Care Time: Yes Critical care time in (mins) excluding proc time.: 35 Critical care attestation.: If time is entered above; I have spent that time in minutes in the direct care of this critically ill patient, excluding procedure time. ED Disposition Clinical Impression: Peripheral vascular complications, Dry gangrene Disposition: 09 OP ADMIT IP TO THIS HOSP Is pt being admited?: Yes Does the pt Need Aspirin: No Condition: Fair Referrals: ASHWIN ZAMORA MD [Primary Care Provider] - 3-5 Days
[2019-04-06] MEDS ORDERED: HEPARIN 10,000 UNITS/10 ML IV ONE (21:52)
[2019-04-06 22:45] LABS: Hematocrit 38.5 % (30.3-42.9); Hemoglobin 12.3 gm/dl (10.1-14.3)
[2019-04-06] MEDS ORDERED: ARTIFICIAL TEARS OPHTH OINT OU PRN (22:45)
[2019-04-06] MEDS ORDERED: SODIUM CHLORIDE FLUSH SYRINGE 10 ML IV PRN (22:46)
[2019-04-06] MEDS ORDERED: PERCOCET 5/325 PO PRN (22:46)
[2019-04-06] MEDS ORDERED: D50W (25GM) Syringe IV PRN (22:46)
[2019-04-06] MEDS ORDERED: MORPHINE IV PRN (22:46)
[2019-04-06] MEDS ORDERED: TYLENOL PO PRN (22:46)
[2019-04-06] MEDS ORDERED: ZOFRAN IV PRN (22:46)
[2019-04-06 22:56] LABS: INR 1.12 (0.87-1.13)
[2019-04-06 22:57] LABS: Partial Thromboplastin Time 27.9 Sec. (24.2-36.6)
[2019-04-06] MEDS ORDERED: HEPARIN/ 0.45% NACL-25,000 UNIT/500 ML 25,000 UNIT/500 ML BAG IV SCH (23:00)
[2019-04-06] MEDS ORDERED: HEPARIN/ 0.45% NACL-25,000 UNIT/500 ML 25,000 UNIT/500 ML BAG ONE (23:33)
[2019-04-06] MEDS ORDERED: HEPARIN 10,000 UNITS/10 ML ONE (23:33)
--- NOTE | 2019-04-07 00:51 | History and Physical Report ---
History of Present Illness Date of examination: 04/06/19 Date of admission: 04/06/19 22:47 Chief complaint: Rt foot sore/rash History of present illness: 79 year old female with ESRD on HD (), DM, HTN, CVA, PVD, S/P CABG, Pulmonary HTN, Systolic CHF (EF 10%), Malnutrition, Seizure Disorder,and S/P left foot amputation of toes who presents to [facility] ED with complaints of sore/rash, numbness and tingling of right foot. Her son is present at the bedside and has assisted in providing history. Patient states that she's had a right foot sore for the past few weeks. She discussed her symptoms with her pearler who gave her a cream to apply on her foot. However, the cream did not relief her symptoms. Denies: fever, chest pain, or drainage or foul smell from right foot Past History Past Medical History: ESRD (()), heart failure (EF 10%), hypertension (pulmonary htn), PVD, seizures, other (hx of Kidney stones, lung nodule, vitamin d defficency) Past Surgical History: CABG, Other (left foot amputation of toes, Right upper arm AV fistula, PAD with lower extremity bypass) Social history: lives with family Family history: no significant family history Medications and Allergies Allergies Allergy/AdvReac Type Severity Reaction Status Date / Time phenytoin sodium Allergy Anaphylaxis Verified 05/08/16 07:07 [From Dilantin] phenytoin sodium extended Allergy Anaphylaxis Verified 05/08/16 07:07 [From Dilantin] Home Medications Medication Instructions Recorded Confirmed Last Taken Type Ferrous Sulfate [Iron 325 MG] 325 mg PO DAILY 01/04/19 04/06/19 01/03/19 History Aspirin EC [Halfprin EC] 81 mg PO QDAY #30 tablet. 01/07/19 04/06/19 Unknown Rx Clopidogrel [Plavix] 75 mg PO QDAY #30 tablet 01/07/19 04/06/19 Unknown Rx Metoprolol [Lopressor TAB] 50 mg PO BID #60 tablet 01/07/19 04/06/19 Unknown Rx Pravastatin [Pravachol] 20 mg PO QHS #30 tablet 01/07/19 04/06/19 Unknown Rx Famotidine [Pepcid] 20 mg PO DAILY tablet 01/31/19 04/06/19 Unknown Rx Lisinopril [Zestril TAB] 2.5 mg PO QDAY tablet 01/31/19 04/06/19 Unknown Rx Lispro Insulin [HumaLOG] 0 unit SUB-Q ACHS units 01/31/19 04/06/19 Unknown Rx Min Oil/Petrolatum [Artificial 1 applic OU Q4HR PRN tube 01/31/19 04/06/19 Unknown Rx Tears Ophth Oint] guaiFENesin DM [Guaifenesin Dm 10 ml PO Q4H PRN oral.liqd 01/31/19 04/06/19 Unknown Rx Syrup] Active Meds: Active Medications Acetaminophen (Tylenol) 650 mg PO Q4H PRN PRN Reason: Pain MILD(1-3)/Fever >100.5/KEE Aspirin (Halfprin Ec) 81 mg PO QDAY LUCIO Clopidogrel Bisulfate (Plavix) 75 mg PO QDAY [facility] Dextrose (D50w (25gm) Syringe) 50 ml IV PRN PRN PRN Reason: Hypoglycemia Famotidine (Pepcid) 20 mg PO DAILY [facility] Ferrous Sulfate (Feosol) 325 mg PO DAILY LUCIO Guaifenesin (Guaifenesin Dm Syrup) 10 ml PO Q4H PRN PRN Reason: Cough Heparin Sodium/Sodium Chloride (Heparin/ 0.45% Nacl-25,000 Unit/500 Ml) 25,000 unit in 500 mls @ 16 mls/hr IV TITR [facility]; Protocol Last Admin: 04/07/19 00:01 Dose: 800 units/hr, 16 mls/hr Documented by: Insulin Human Lispro (Humalog) 0 unit SUB-Q ACHS [facility]; Protocol Lisinopril (Zestril) 2.5 mg PO QDAY [facility] Metoprolol Tartrate (Lopressor) 50 mg PO BID [facility] Morphine Sulfate (Morphine) 2 mg IV Q4H PRN PRN Reason: Pain, Moderate (4-6) Multi-Ingred Cream/Lotion/Oil/Oint (Artificial Tears Ophth Oint) 1 applic OU Q4HR PRN PRN Reason: Dry Eye(s) Ondansetron HCl (Zofran) 4 mg IV Q8H PRN PRN Reason: Nausea And Vomiting Oxycodone/Acetaminophen (Percocet 5/325) 1 tab PO Q6H PRN PRN Reason: Pain, Moderate (4-6) Pravastatin Sodium (Pravachol) 20 mg PO QHS LUCIO Sodium Chloride (Sodium Chloride Flush Syringe 10 Ml) 10 ml IV BID LUCIO Sodium Chloride (Sodium Chloride Flush Syringe 10 Ml) 10 ml IV PRN PRN PRN Reason: LINE FLUSH Review of Systems All systems: negative (reviewed and no additional remarkable complaints except as noted below) Integumentary: rash, other (rt foot sore, numbness and tingling of right foot) Exam - Physical Exam Narrative exam: Physical exam General appearance: Present: No acute distress, awake, oriented 3, chronically ill appearance -[place] older adult female - EENT Eyes: Present: PERRL, EOM intact ENT: hearing intact, the 17th - Neck Neck: Present: supple, normal ROM - Respiratory Respiratory effort: Non-labored Respiratory: CTA bilaterally with diminished bases - Cardiovascular Heart rate: 75 (bpm) Rhythm: regular Heart Sounds: Present: S1 & S2. Absent: rub, click - Extremities Extremities: diminished pulses to the right foot which is cool to touch; there is a left foot amputation of toes; some dry gangrene to the fourth and fifth digits of the right foot noted; ANALIA AV Fistula - Peripheral Assessment Peripheral Pulses: poor peripheral pulses - Abdominal General gastrointestinal: soft, non-tender, normal bowel sounds - Integumentary Integumentary: Present: warm, dry - Musculoskeletal Musculoskeletal: generalized weakness,able to move all extremities - Psychiatric Psychiatric: cooperative - Constitutional Vitals: Temp Pulse Resp BP Pulse Ox 98 F 72 12 129/64 97 04/06/19 19:25 04/06/19 23:30 04/06/19 23:30 04/06/19 23:30 04/06/19 23:30 Results - Labs CBC & Chem 7: 04/06/19 22:21 04/06/19 17:33 Labs: Laboratory Last Values WBC 5.4 K/mm3 (4.5-11.0) 04/06/19 17:33 RBC 4.72 M/mm3 (3.65-5.03) 04/06/19 17:33 Hgb 12.3 gm/dl (10.1-14.3) 04/06/19 22:21 Hct 38.5 % (30.3-42.9) 04/06/19 22:21 MCV 80 fl (79-97) 04/06/19 17:33 MCH 25 pg (28-32) L 04/06/19 17:33 MCHC 32 % (30-34) 04/06/19 17:33 RDW 18.0 % (13.2-15.2) H 04/06/19 17:33 Plt Count 168 K/mm3 (140-440) 04/06/19 22:21 Lymph % (Auto) 13.1 % (13.4-35.0) L 04/06/19 17:33 [place] % (Auto) 9.5 % (0.0-7.3) H 04/06/19 17:33 Eos % (Auto) 1.4 % (0.0-4.3) 04/06/19 17:33 Baso % (Auto) 0.5 % (0.0-1.8) 04/06/19 17:33 Lymph # 0.7 K/mm3 (1.2-5.4) L 04/06/19 17:33 [place] # 0.5 K/mm3 (0.0-0.8) 04/06/19 17:33 Eos # 0.1 K/mm3 (0.0-0.4) 04/06/19 17:33 Baso # 0.0 K/mm3 (0.0-0.1) 04/06/19 17:33 Seg Neutrophils % 75.5 % (40.0-70.0) H 04/06/19 17:33 Seg Neutrophils # 4.1 K/mm3 (1.8-7.7) 04/06/19 17:33 PT 14.1 Sec. (12.2-14.9) 04/06/19 22:21 INR 1.12 (0.87-1.13) 04/06/19 22:21 APTT 27.9 Sec. (24.2-36.6) 04/06/19 22:21 Sodium 139 mmol/L (137-145) 04/06/19 17:33 Potassium 4.9 mmol/L (3.6-5.0) 04/06/19 17:33 Chloride 99.1 mmol/L (98-107) 04/06/19 17:33 Carbon Dioxide 25 mmol/L (22-30) 04/06/19 17:33 20 mmol/L 04/06/19 17:33 BUN 36 mg/dL (7-17) H 04/06/19 17:33 5.2 mg/dL (0.7-1.2) H 04/06/19 17:33 Estimated GFR 10 ml/min 04/06/19 17:33 7 % 04/06/19 17:33 Glucose 118 mg/dL (65-100) H 04/06/19 17:33 Calcium 8.1 mg/dL (8.4-10.2) L 04/06/19 17:33 0.40 mg/dL (0.1-1.2) 04/06/19 17:33 AST 30 units/L (5-40) 04/06/19 17:33 ALT 21 units/L (7-56) 04/06/19 17:33 164 units/L (35-129) H 04/06/19 17:33 NT-Pro-B Natriuret Pep > 72218 pg/mL (0-900) H 04/06/19 17:33 7.0 g/dL (6.3-8.2) 04/06/19 17:33 3.5 g/dL (3.9-5) L 04/06/19 17:33 1.0 % 04/06/19 17:33 - Imaging and Cardiology Chest x-ray: report reviewed (Mild somewhat reticular bibasilar opacities could be due to atelectasis. There ), image reviewed Assessment and Plan Assessment and plan: 79 year old female with ESRD on HD (//), DM, HTN, CVA, PVD, S/P CABG, Pulmonary HTN, Systolic CHF (EF 10%), Malnutrition, Seizure Disorder,and S/P left foot amputation of toes who presents to [facility] ED with complaints of sore/rash, numbness and tingling of right foot. PVD Right Foot wound -?? Dry gangrene to right third and fourth toe -Wound care consult pending -Vascular consulted -poor peripheral pulse -BLE cool to touch -BLE Doppler pending -Started on Heparin gtt Hx of Left foot Amputation of toes -All toes on left foot amputated ESRD on HD / -Nephrology consulted for HD mgmt Chronic Systolic HF -EF 10-15 % seen on Echo (12/2018) -On BB, Statin, and ANAND Hx of CVA -on ASA and Statin DM -POC BG monitoring -SSI coverage Mild to moderate malnutrition -Dietitian consulted -encourage oral intake HTN -Monitor BP -Resume antihypertensive to optimize BP DVT PPX -on Heparin gtt Hx Seizure Disorder Hx Pulmonary HTN Advance Directives: No VTE prophylaxis?: Chemical Plan of care discussed with patient/family: Yes
[2019-04-07 05:51] LABS: Basophils % (Auto) 0.6 % (0.0-1.8); Eosinophils # (Auto) 0.1 K/mm3 (0.0-0.4); Eosinophils % (Auto) 3.1 % (0.0-4.3); Hematocrit 34.9 % (30.3-42.9); Hemoglobin 11.4 gm/dl (10.1-14.3); Lymphocytes # (Auto) 0.8 K/mm3 (1.2-5.4); Lymphocytes % (Auto) 15.7 % (13.4-35.0); Mean Corpuscular HGB Conc 33 % (30-34); Mean Corpuscular Volume 79 fl (79-97); Monocytes # (Auto) 0.5 K/mm3 (0.0-0.8); Monocytes % (Auto) 10.2 % (0.0-7.3); Platelet Count 171 K/mm3 (140-440); Red Cell Distribution Width 17.8 % (13.2-15.2)
[2019-04-07 06:02] LABS: Calcium 7.6 mg/dL (8.4-10.2)
[2019-04-07] MEDS: HumaLOG SUB-Q SCH ×4 (08:00→23:18)
[2019-04-07] MEDS: LOPRESSOR PO SCH ×2 (10:11→23:17)
[2019-04-07] MEDS: HALFPRIN EC PO SCH (10:12)
[2019-04-07] MEDS: PLAVIX PO SCH (10:12)
[2019-04-07] MEDS: ZESTRIL PO SCH (10:12)
[2019-04-07] MEDS: PEPCID PO SCH (10:12)
[2019-04-07] MEDS: SODIUM CHLORIDE FLUSH SYRINGE 10 ML IV SCH ×2 (10:12→23:17)
[2019-04-07] MEDS: FEOSOL PO SCH (10:12)
[2019-04-07] MEDS ORDERED: HEPARIN/NS 5000 UNIT/500ML(CATH LAB) 1,000 ML IR ONE (10:34)
--- NOTE | 2019-04-07 10:35 | Consultation ---
History of Present Illness - Reason for Consult Consult date: 04/07/19 Wounds - History of Present Illness 79 year old female with ESRD on HD (T//), DM, HTN, CVA, PVD, S/P CABG, Pulmonary HTN, Systolic CHF (EF 10%), Malnutrition, Seizure Disorder,and S/P left foot TMA amputation of toes who presents to [facility] ED with complaints of sore/rash, numbness and tingling of right foot. Her son is present at the bedside and has assisted in providing history. Patient states that she's had a right foot sore for the past few weeks. She discussed her symptoms with her registry rn who gave her a cream to apply on her foot. However, the cream did not relief her symptoms. Patient was initiated on heparin drip and vascular was consulted. Patient has full motor function, no loss of sensory function, and minimal pain. She does endorse some neuropathy. She has multiple wounds of her right foot with edema and resultant vesicles with bulla with some desquamation of the skin speci fically the third digit, and multiple portions of the dorsum of the foot. The tissue underlying this appears discolored and ischemic. Nonpalpable bilateral pedal pulses. Patient reports she had a bypass of her left lower extremity a year ago and has incisions compatible with a popliteal tibial bypass. Past History Past Medical History: ESRD ((//)), heart failure (EF 10%), hypertension (pulmonary htn), PVD, seizures, other (hx of Kidney stones, lung nodule, vitamin d defficency) Past Surgical History: CABG, Other (left foot amputation of toes, Right upper arm AV fistula, PAD with lower extremity bypass) Social history: lives with family Family history: no significant family history Medications and Allergies Allergies Allergy/AdvReac Type Severity Reaction Status Date / Time phenytoin sodium Allergy Anaphylaxis Verified 05/08/16 07:07 [From Dilantin] phenytoin sodium extended Allergy Anaphylaxis Verified 05/08/16 07:07 [From Dilantin] Home Medications Medication Instructions Recorded Confirmed Last Taken Type Ferrous Sulfate [Iron 325 MG] 325 mg PO DAILY 01/04/19 04/06/19 01/03/19 History Aspirin EC [Halfprin EC] 81 mg PO QDAY #30 tablet. 01/07/19 04/06/19 Unknown Rx Clopidogrel [Plavix] 75 mg PO QDAY #30 tablet 01/07/19 04/06/19 Unknown Rx Metoprolol [Lopressor TAB] 50 mg PO BID #60 tablet 01/07/19 04/06/19 Unknown Rx Pravastatin [Pravachol] 20 mg PO QHS #30 tablet 01/07/19 04/06/19 Unknown Rx Famotidine [Pepcid] 20 mg PO DAILY tablet 01/31/19 04/06/19 Unknown Rx Lisinopril [Zestril TAB] 2.5 mg PO QDAY tablet 01/31/19 04/06/19 Unknown Rx Lispro Insulin [HumaLOG] 0 unit SUB-Q ACHS units 01/31/19 04/06/19 Unknown Rx Min Oil/Petrolatum [Artificial 1 applic OU Q4HR PRN tube 01/31/19 04/06/19 Unknown Rx Tears Ophth Oint] guaiFENesin DM [Guaifenesin Dm 10 ml PO Q4H PRN oral.liqd 01/31/19 04/06/19 Unknown Rx Syrup] Active Meds: Active Medications Acetaminophen (Tylenol) 650 mg PO Q4H PRN PRN Reason: Pain MILD(1-3)/Fever >100.5/KEE Aspirin (Halfprin Ec) 81 mg PO QDAY [facility] Last Admin: 04/07/19 10:12 Dose: 81 mg Documented by: Clopidogrel Bisulfate (Plavix) 75 mg PO QDAY [facility] Last Admin: 04/07/19 10:12 Dose: 75 mg Documented by: Dextrose (D50w (25gm) Syringe) 50 ml IV PRN PRN PRN Reason: Hypoglycemia Famotidine (Pepcid) 20 mg PO DAILY [facility] Last Admin: 04/07/19 10:12 Dose: 20 mg Documented by: Ferrous Sulfate (Feosol) 325 mg PO DAILY [facility] Last Admin: 04/07/19 10:12 Dose: 325 mg Documented by: Guaifenesin (Guaifenesin Dm Syrup) 10 ml PO Q4H PRN PRN Reason: Cough Heparin Sodium/Sodium Chloride (Heparin/ 0.45% Nacl-25,000 Unit/500 Ml) 25,000 unit in 500 mls @ 16 mls/hr IV TITR [facility]; Protocol Last Titration: 04/07/19 06:21 Dose: 850 units/hr, 17 mls/hr Documented by: Insulin Human Lispro (Humalog) 0 unit SUB-Q ACHS [facility]; Protocol Last Admin: 04/07/19 08:00 Dose: Not Given Documented by: Lisinopril (Zestril) 2.5 mg PO QDAY [facility] Last Admin: 04/07/19 10:12 Dose: 2.5 mg Documented by: Metoprolol Tartrate (Lopressor) 50 mg PO BID [facility] Last Admin: 04/07/19 10:11 Dose: 50 mg Documented by: Morphine Sulfate (Morphine) 2 mg IV Q4H PRN PRN Reason: Pain, Moderate (4-6) Multi-Ingred Cream/Lotion/Oil/Oint (Artificial Tears Ophth Oint) 1 applic OU Q4HR PRN PRN Reason: Dry Eye(s) Ondansetron HCl (Zofran) 4 mg IV Q8H PRN PRN Reason: Nausea And Vomiting Oxycodone/Acetaminophen (Percocet 5/325) 1 tab PO Q6H PRN PRN Reason: Pain, Moderate (4-6) Pravastatin Sodium (Pravachol) 20 mg PO QHS [facility] Sodium Chloride (Sodium Chloride Flush Syringe 10 Ml) 10 ml IV BID [facility] Last Admin: 04/07/19 10:12 Dose: 10 ml Documented by: Sodium Chloride (Sodium Chloride Flush Syringe 10 Ml) 10 ml IV PRN PRN PRN Reason: LINE FLUSH Review of Systems All systems: negative (see HPI) Exam - Constitutional Vitals: Temp Pulse Resp BP Pulse Ox 97.4 F L 74 18 127/63 97 04/07/19 07:29 04/07/19 10:12 04/07/19 07:29 04/07/19 10:12 04/07/19 07:29 General appearance: Present: no acute distress - EENT Eyes: Present: EOM intact ENT: hearing intact - Respiratory Respiratory effort: normal - Extremities Extremities: abnormal (the forefoot is cold, the midfoot is cool, and the hindfoot and calf is warm; motor function intact ; sensory function intact but does endorse neuropathy but denies pain; nonpalpable pedal pulses ; well-healed left TMA) - Psychiatric Psychiatric: appropriate mood/affect, cooperative Results - Labs CBC & Chem 7: 04/07/19 04:42 08/15/19 04:42 Labs: Abnormal lab results 04/06/19 04/06/19 04/07/19 Range/Units 17:33 17:33 04:42 MCH 25 L 26 L (28-32) pg RDW 18.0 H 17.8 H (13.2-15.2) % Lymph % (Auto) 13.1 L (13.4-35.0) % [place] % (Auto) 9.5 H 10.2 H (0.0-7.3) % Lymph # 0.7 L 0.8 L (1.2-5.4) K/mm3 Seg Neutrophils % 75.5 H 70.4 H (40.0-70.0) % Heparin Anti-Xa Level (0.3-0.7) U.I./ml BUN 36 H (7-17) mg/dL Creatinine 5.2 H (0.7-1.2) mg/dL Glucose 118 H (65-100) mg/dL Calcium 8.1 L (8.4-10.2) mg/dL Alkaline Phosphatase 164 H (35-129) units/L NT-Pro-B Natriuret Pep > 75740 H (0-900) pg/mL Albumin 3.5 L (3.9-5) g/dL HDL Cholesterol (40-59) mg/dL 04/07/19 04/07/19 Range/Units 04:42 04:42 MCH (28-32) pg RDW (13.2-15.2) % Lymph % (Auto) (13.4-35.0) % [place] % (Auto) (0.0-7.3) % Lymph # (1.2-5.4) K/mm3 Seg Neutrophils % (40.0-70.0) % Heparin Anti-Xa Level 0.27 L (0.3-0.7) U.I./ml BUN 35 H (7-17) mg/dL Creatinine 5.5 H (0.7-1.2) mg/dL Glucose 112 H (65-100) mg/dL Calcium 7.6 L (8.4-10.2) mg/dL Alkaline Phosphatase (35-129) units/L NT-Pro-B Natriuret Pep (0-900) pg/mL Albumin (3.9-5) g/dL HDL Cholesterol 63 H (40-59) mg/dL Assessment and Plan 79-year-old female with end-stage renal disease congestive heart failure, and prior left-sided forefoot gangrene requiring revascularization, bypass, and left TMA. She now presents with critical limb ischemia for the last month of the right lower extremity versus subacute acute limb ischemia of the right lower extremity. For the last month she has had worsening wounds of the right foot. Her right forefoot is cold. I suspect her lack of pain is secondary to neuropathy. Plan for revascularization of the right lower extremity. Discussed possibility of thrombolysis in case there is a thrombus, but I suspect this is more likely critical limb ischemia. Risks, benefits, and alternatives discussed. Patient agreed to procedure. Wound care and need to be involved this patient will need to follow up with wound care after this is performed.
[2019-04-07] MEDS ORDERED: XYLOCAINE 1%/ EPI 1:100,000 INFILTRATI ONE (10:36)
[2019-04-07] MEDS ORDERED: NACL 0.9% 500 ML 500 ML ONE (10:36)
[2019-04-07] MEDS: SUBLIMAZE ONE ×5 (11:00→12:14)
[2019-04-07] MEDS: VERSED ONE ×6 (11:00→12:14)
[2019-04-07] MEDS: HEPARIN 10,000 UNITS/10 ML ONE ×3 (11:29→12:15)
[2019-04-07] MEDS ORDERED: NITROGLYCERIN SYRINGE 6 ML ONE (11:38)
[2019-04-07] MEDS ORDERED: CALAN ONE (11:39)
[2019-04-07] MEDS ORDERED: TRIDIL DRIP 50MG/250ML 50 MG/250 ML BOTTLE ONE (11:39)
[2019-04-07] MEDS ORDERED: NACL 0.9% 1000 ML 1,000 ML ONE (11:40)
--- NOTE | 2019-04-07 11:56 | Consultation ---
History of Present Illness Consult date: 04/07/19 Consult reason: congestive heart failure History of present illness: This is a frail 79-year old woman with PVD, ESRD on hemodialysis, predominately dilated cardiomyopathy and coronary artery disease s/p PCI of proximal LAD a year ago. Her latest echocardiogram showed a persistent cardiomyopathy with an ejection fraction 10-15%. A month ago patient was hospitalized with cardiopulmonary arrest while at dialysis. Given severe cardiomyopathy, she had decided she wanted to pursue ICD implant and procedure was scheduled but the patient later decided she does not want to pursue ICD implant. Patient is now admitted with with right lower extremity pain, blisters and gangrenous foot. A cardiac consultation has been requested for CHF. Patient denies chest pain, unusual shortness of breath and palpitations. There is no evidence of lower extremity edema. Chest x-ray reports no evidence of interstitial edema. An ECG was not obtained for cardiac review. Past History Past Medical History: ESRD ((T//S)), heart failure (EF 10%), hypertension (pulmonary htn), PVD, seizures, other (hx of Kidney stones, lung nodule, vitamin d defficency) Past Surgical History: CABG, Other (left foot amputation of toes, Right upper arm AV fistula, PAD with lower extremity bypass) Social history: lives with family Family history: no significant family history Medications and Allergies Allergies Allergy/AdvReac Type Severity Reaction Status Date / Time phenytoin sodium Allergy Anaphylaxis Verified 05/08/16 07:07 [From Dilantin] phenytoin sodium extended Allergy Anaphylaxis Verified 05/08/16 07:07 [From Dilantin] Home Medications Medication Instructions Recorded Confirmed Last Taken Type Ferrous Sulfate [Iron 325 MG] 325 mg PO DAILY 01/04/19 04/06/19 01/03/19 History Aspirin EC [Halfprin EC] 81 mg PO QDAY #30 tablet. 01/07/19 04/06/19 Unknown Rx Clopidogrel [Plavix] 75 mg PO QDAY #30 tablet 01/07/19 04/06/19 Unknown Rx Metoprolol [Lopressor TAB] 50 mg PO BID #60 tablet 01/07/19 04/06/19 Unknown Rx Pravastatin [Pravachol] 20 mg PO QHS #30 tablet 01/07/19 04/06/19 Unknown Rx Famotidine [Pepcid] 20 mg PO DAILY tablet 01/31/19 04/06/19 Unknown Rx Lisinopril [Zestril TAB] 2.5 mg PO QDAY tablet 01/31/19 04/06/19 Unknown Rx Lispro Insulin [HumaLOG] 0 unit SUB-Q ACHS units 01/31/19 04/06/19 Unknown Rx Min Oil/Petrolatum [Artificial 1 applic OU Q4HR PRN tube 01/31/19 04/06/19 Unknown Rx Tears Ophth Oint] guaiFENesin DM [Guaifenesin Dm 10 ml PO Q4H PRN oral.liqd 01/31/19 04/06/19 Unknown Rx Syrup] Active Meds: Active Medications Acetaminophen (Tylenol) 650 mg PO Q4H PRN PRN Reason: Pain MILD(1-3)/Fever >100.5/KEE Aspirin (Halfprin Ec) 81 mg PO QDAY [facility] Last Admin: 04/07/19 10:12 Dose: 81 mg Documented by: Clopidogrel Bisulfate (Plavix) 75 mg PO QDAY [facility] Last Admin: 04/07/19 10:12 Dose: 75 mg Documented by: Dextrose (D50w (25gm) Syringe) 50 ml IV PRN PRN PRN Reason: Hypoglycemia Famotidine (Pepcid) 20 mg PO DAILY [facility] Last Admin: 04/07/19 10:12 Dose: 20 mg Documented by: Ferrous Sulfate (Feosol) 325 mg PO DAILY [facility] Last Admin: 04/07/19 10:12 Dose: 325 mg Documented by: Guaifenesin (Guaifenesin Dm Syrup) 10 ml PO Q4H PRN PRN Reason: Cough Heparin Sodium/Sodium Chloride (Heparin/ 0.45% Nacl-25,000 Unit/500 Ml) 25,000 unit in 500 mls @ 16 mls/hr IV TITR [facility]; Protocol Last Titration: 04/07/19 06:21 Dose: 850 units/hr, 17 mls/hr Documented by: Insulin Human Lispro (Humalog) 0 unit SUB-Q ACHS [facility]; Protocol Last Admin: 04/07/19 08:00 Dose: Not Given Documented by: Lisinopril (Zestril) 2.5 mg PO QDAY [facility] Last Admin: 04/07/19 10:12 Dose: 2.5 mg Documented by: Metoprolol Tartrate (Lopressor) 50 mg PO BID [facility] Last Admin: 04/07/19 10:11 Dose: 50 mg Documented by: Morphine Sulfate (Morphine) 2 mg IV Q4H PRN PRN Reason: Pain, Moderate (4-6) Multi-Ingred Cream/Lotion/Oil/Oint (Artificial Tears Ophth Oint) 1 applic OU Q4HR PRN PRN Reason: Dry Eye(s) Ondansetron HCl (Zofran) 4 mg IV Q8H PRN PRN Reason: Nausea And Vomiting Oxycodone/Acetaminophen (Percocet 5/325) 1 tab PO Q6H PRN PRN Reason: Pain, Moderate (4-6) Pravastatin Sodium (Pravachol) 20 mg PO QHS [facility] Sodium Chloride (Sodium Chloride Flush Syringe 10 Ml) 10 ml IV BID [facility] Last Admin: 04/07/19 10:12 Dose: 10 ml Documented by: Sodium Chloride (Sodium Chloride Flush Syringe 10 Ml) 10 ml IV PRN PRN PRN Reason: LINE FLUSH Physical Examination Vital Signs Temp Pulse Resp BP Pulse Ox 98 F 75 17 135/75 98 04/06/19 19:25 04/06/19 19:25 04/06/19 19:25 04/06/19 19:25 04/06/19 19:25 General appearance: no acute distress HEENT: Positive: PERRL Neck: Positive: trachea midline Cardiac: Positive: Reg Rate and Rhythm Lungs: Positive: Decreased Breath Sounds Neuro: Positive: Grossly Intact Skin: Positive: Black, Cool (RLE) Extremities: Absent: edema Results 04/07/19 04:42 04/07/19 04:42 Cardiac Enzymes 04/06/19 Range/Units 17:33 AST 30 (5-40) units/L Coagulation 04/06/19 Range/Units 22:21 PT 14.1 (12.2-14.9) Sec. INR 1.12 (0.87-1.13) APTT 27.9 (24.2-36.6) Sec. Lipids 04/07/19 Range/Units 04:42 Triglycerides 64 (2-149) mg/dL Cholesterol 126 (50-199) mg/dL HDL Cholesterol 63 H (40-59) mg/dL Cholesterol/HDL Ratio 2.00 % CBC 04/06/19 04/06/19 04/07/19 Range/Units 17:33 22:21 04:42 WBC 5.4 4.9 (4.5-11.0) K/mm3 RBC 4.72 4.40 (3.65-5.03) M/mm3 Hgb 11.9 12.3 11.4 (10.1-14.3) gm/dl Hct 37.9 38.5 34.9 (30.3-42.9) % Plt Count 158 168 171 (140-440) K/mm3 Lymph # 0.7 L 0.8 L (1.2-5.4) K/mm3 [place] # 0.5 0.5 (0.0-0.8) K/mm3 Eos # 0.1 0.1 (0.0-0.4) K/mm3 Baso # 0.0 0.0 (0.0-0.1) K/mm3 Comprehensive Metabolic Panel 04/06/19 04/07/19 Range/Units 17:33 04:42 Sodium 139 141 (137-145) mmol/L Potassium 4.9 4.5 (3.6-5.0) mmol/L Chloride 99.1 103.1 (98-107) mmol/L Carbon Dioxide 25 25 (22-30) mmol/L BUN 36 H 35 H (7-17) mg/dL Creatinine 5.2 H 5.5 H (0.7-1.2) mg/dL Glucose 118 H 112 H (65-100) mg/dL Calcium 8.1 L 7.6 L (8.4-10.2) mg/dL AST 30 (5-40) units/L ALT 21 (7-56) units/L Alkaline Phosphatase 164 H (35-129) units/L Total Protein 7.0 (6.3-8.2) g/dL Albumin 3.5 L (3.9-5) g/dL Assessment and Plan Gangrene RLE Hx of PAD End stage renal disease on dialysis Dilated nonischemic cardiomyopathy EF 10-15% 12/2018 Coronary artery disease status post PCI of the proximal LAD using a BMS done December 2017. Chronic hypertesnion Hyperlipidemia Diabetes Recommendations; Dialysis for fluid management. Obtain an ECG. Medical therapy for nonischemic cardiomyopathy and coronary artery disease as tolerated. Otherwise, conservative cardiac management.
[2019-04-07] MEDS ORDERED: ANCEF/STERILE WATER 2 GM/20 ML 2 GM/20 ML SYRINGE IV ONE (11:59)
[2019-04-07] MEDS ORDERED: HEPARIN/NS 5000 UNIT/500ML(CATH LAB) 500 ML IR ONE (12:07)
[2019-04-07] MEDS ORDERED: VERSED ONE (12:13)
[2019-04-07] MEDS ORDERED: BABY ASPIRIN ONE (12:46)
[2019-04-07] MEDS ORDERED: PLAVIX ONE (12:47)
--- NOTE | 2019-04-07 12:54 | Post Operative Note ---
Date of procedure: 04/07/19 Pre-op diagnosis: Subacute limb ischemia vs critical limb ischemia Post-op diagnosis: other (Critical limb ischemia) Findings: At the start of the procedure there was no vessel runoff with occlusions of all vessels; At the conclusion of the procedure there was two vessel runoff with the peroneal and posterior tibial artery to the foot with palpable posterior tibial artery ; the dorsalis pedis and anterior tibial artery were occluded throughout most of the course, but the posterior tibial fills the toes through an intact pedal arch Procedure: 1. Ultrasound guided access of the left common femoral artery 2. Angiography of the left lower extremity 3. Selection of the abdominal aorta with angiography 4. Selection of the right external iliac artery, superficial femoral artery, popliteal artery, peroneal artery and posterior tibial artery 5. Atherectomy of the right peroneal artery and tibioperoneal trunk with a 1.5 mm solid CSI atherectomy device 6. Angioplasty of the right peroneal artery with a 2-2.5 mm angioplasty ballon 7. Angioplasty of the right tibioperoneal trunk with a 3.5 mm angioplasty balloon 8. Atherectomy of the right posterior tibial artery and common plantar artery with a 1.5 mm solid CSI atherectomy device 9. Angioplasty of the right posterior tibial artery and common plantar artery with a 2-2.5 mm angioplasty balloon 10. Closure of the left common femoral artery with a 6 Fr proglide Anesthesia: local (w/ conscious sedation) Surgeon: MERRITT HASKINS Estimated blood loss: minimal Condition: stable Disposition: floor
--- NOTE | 2019-04-07 13:02 | Progress Note ---
Assessment and Plan Assessment and plan: 79 year old female with ESRD on HD (T//), DM, HTN, CVA, PVD, S/P CABG, Pulmonary HTN, Systolic CHF (EF 10%), Malnutrition, Seizure Disorder,and S/P left foot amputation of toes who presents to [facility] ED with complaints of sore/rash, numbness and tingling of right foot. Her son is present at the bedside and has assisted in providing history. Patient states that she's had a right foot sore for the past few weeks. She discussed her symptoms with her double needle operator who gave her a cream to apply on her foot. However, the cream did not relief her symptoms. Denies: fever, chest pain, or drainage or foul smell from right foot Critical limb ischemia/Dry gangrene of right foot, dopplers, heparin ggt, vasc sx consult- Going for revascularization today, keep npo for now malnutrition; supply chain procurement manager consult CHF- chronic systolic, currently euvolemic, consult [facility] ESRD- cont HD DM- ssi, check a1 Hx of Left foot Amputation of toes -All toes on left foot amputated Hx of CVA -on ASA and Statin Mild to moderate malnutrition -Dietitian consulted -encourage oral intake HTN -Monitor BP -Resume antihypertensive to optimize BP DVT PPX -on Heparin gtt Hx Seizure Disorder Hx Pulmonary HTN Counselling provided to the patient, Surgery may be consulted. History Interval history: Patient seen and examined, resting comfortable, at the time of my visit patient was being given consent for vascular procedure. No new complaints at this time. Hospitalist Physical - Physical exam Narrative exam: General appearance: Present: No acute distress, awake, oriented 3, chronically ill appearance - EENT Eyes: Present: PERRL, EOM intact ENT: hearing intact, the 17th - Neck Neck: Present: supple, normal ROM - Respiratory Respiratory effort: Non-labored Respiratory: CTA bilaterally with diminished bases - Cardiovascular Heart rate: 75 (bpm) Rhythm: regular Heart Sounds: Present: S1 & S2. Absent: rub, click - Extremities Extremities: diminished pulses to the right foot which is cool to touch; there is a left foot amputation of toes; some dry gangrene to the fourth and fifth digits of the right foot noted; ANALIA AV Fistula - Peripheral Assessment Peripheral Pulses: poor peripheral pulses - Abdominal General gastrointestinal: soft, non-tender, normal bowel sounds - Integumentary Integumentary: Present: warm, dry - Musculoskeletal Musculoskeletal: generalized weakness,able to move all extremities - Psychiatric Psychiatric: cooperative - Constitutional Vitals: Temp Pulse Resp BP Pulse Ox 97.4 F L 74 18 127/63 97 04/07/19 07:29 04/07/19 10:12 04/07/19 07:29 04/07/19 10:12 04/07/19 07:29 General appearance: Present: no acute distress Results - Labs CBC & Chem 7: 04/07/19 04:42 04/07/19 04:42 Labs: Laboratory Last Values WBC 4.9 K/mm3 (4.5-11.0) 04/07/19 04:42 RBC 4.40 M/mm3 (3.65-5.03) 04/07/19 04:42 Hgb 11.4 gm/dl (10.1-14.3) 04/07/19 04:42 Hct 34.9 % (30.3-42.9) 04/07/19 04:42 MCV 79 fl (79-97) 04/07/19 04:42 MCH 26 pg (28-32) L 04/07/19 04:42 MCHC 33 % (30-34) 04/07/19 04:42 RDW 17.8 % (13.2-15.2) H 04/07/19 04:42 Plt Count 171 K/mm3 (140-440) 04/07/19 04:42 Lymph % (Auto) 15.7 % (13.4-35.0) 04/07/19 04:42 [place] % (Auto) 10.2 % (0.0-7.3) H 04/07/19 04:42 Eos % (Auto) 3.1 % (0.0-4.3) 04/07/19 04:42 Baso % (Auto) 0.6 % (0.0-1.8) 04/07/19 04:42 Lymph # 0.8 K/mm3 (1.2-5.4) L 04/07/19 04:42 [place] # 0.5 K/mm3 (0.0-0.8) 04/07/19 04:42 Eos # 0.1 K/mm3 (0.0-0.4) 04/07/19 04:42 Baso # 0.0 K/mm3 (0.0-0.1) 04/07/19 04:42 Seg Neutrophils % 70.4 % (40.0-70.0) H 04/07/19 04:42 Seg Neutrophils # 3.4 K/mm3 (1.8-7.7) 04/07/19 04:42 PT 14.1 Sec. (12.2-14.9) 04/06/19 22:21 INR 1.12 (0.87-1.13) 04/06/19 22:21 APTT 27.9 Sec. (24.2-36.6) 04/06/19 22:21 Heparin Anti-Xa Level 0.27 U.I./ml (0.3-0.7) L 04/07/19 04:42 Sodium 141 mmol/L (137-145) 04/07/19 04:42 Potassium 4.5 mmol/L (3.6-5.0) 04/07/19 04:42 Chloride 103.1 mmol/L (98-107) 04/07/19 04:42 Carbon Dioxide 25 mmol/L (22-30) 04/07/19 04:42 17 mmol/L 04/07/19 04:42 BUN 35 mg/dL (7-17) H 04/07/19 04:42 5.5 mg/dL (0.7-1.2) H 04/07/19 04:42 Estimated GFR 9 ml/min 04/07/19 04:42 6 % 04/07/19 04:42 Glucose 112 mg/dL (65-100) H 04/07/19 04:42 POC Glucose 96 (70-105) 04/07/19 07:35 5.6 % (4-6) 04/07/19 04:42 Calcium 7.6 mg/dL (8.4-10.2) L 04/07/19 04:42 0.40 mg/dL (0.1-1.2) 04/06/19 17:33 AST 30 units/L (5-40) 04/06/19 17:33 ALT 21 units/L (7-56) 04/06/19 17:33 164 units/L (35-129) H 04/06/19 17:33 NT-Pro-B Natriuret Pep > 51632 pg/mL (0-900) H 04/06/19 17:33 7.0 g/dL (6.3-8.2) 04/06/19 17:33 3.5 g/dL (3.9-5) L 04/06/19 17:33 1.0 % 04/06/19 17:33 Triglycerides 64 mg/dL (2-149) 04/07/19 04:42 Cholesterol 126 mg/dL (50-199) 04/07/19 04:42 59 mg/dL (50-130) 04/07/19 04:42 63 mg/dL (40-59) H 04/07/19 04:42 2.00 % 04/07/19 04:42 Active Medications - Current Medications Current Medications: Generic Name Dose Route Start Last Admin Trade Name Freq PRN Reason Stop Dose Admin Acetaminophen 650 mg 04/06/19 22:46 Tylenol PO Q4H PRN Pain MILD(1-3)/Fever >100.5/KEE Aspirin 81 mg 04/07/19 10:00 04/07/19 10:12 Halfprin Ec PO 81 mg QDAY [facility] Administration Clopidogrel Bisulfate 75 mg 04/07/19 10:00 04/07/19 10:12 Plavix PO 75 mg QDAY [facility] Administration Dextrose 50 ml 04/06/19 22:46 D50w (25gm) Syringe IV PRN PRN Hypoglycemia Famotidine 20 mg 04/07/19 10:00 04/07/19 10:12 Pepcid PO 20 mg DAILY [facility] Administration Ferrous Sulfate 325 mg 04/07/19 10:00 04/07/19 10:12 Feosol PO 325 mg DAILY [facility] Administration Guaifenesin 10 ml 04/06/19 22:45 Guaifenesin Dm Syrup PO Q4H PRN Cough Heparin Sodium/Sodium Chloride 25,000 unit in 500 mls @ 16 mls/hr 04/06/19 23:00 04/07/19 06:21 Heparin/ 0.45% Nacl-25,000 Unit/500 Ml IV 850 units/hr TITR [facility] 17 mls/hr Titration Protocol 800 UNITS/HR Insulin Human Lispro 0 unit 04/07/19 07:30 04/07/19 08:00 Humalog SUB-Q Not Given ACHS [facility] Protocol Lisinopril 2.5 mg 04/07/19 10:00 04/07/19 10:12 Zestril PO 2.5 mg QDAY [facility] Administration Metoprolol Tartrate 50 mg 04/07/19 10:00 04/07/19 10:11 Lopressor PO 50 mg BID [facility] Administration Morphine Sulfate 2 mg 04/06/19 22:46 Morphine IV Q4H PRN Pain, Moderate (4-6) Multi-Ingred Cream/Lotion/Oil/Oint 1 applic 04/06/19 22:45 Artificial Tears Ophth Oint OU Q4HR PRN Dry Eye(s) Ondansetron HCl 4 mg 04/06/19 22:46 Zofran IV Q8H PRN Nausea And Vomiting Oxycodone/Acetaminophen 1 tab 04/06/19 22:46 Percocet 5/325 PO Q6H PRN Pain, Moderate (4-6) Pravastatin Sodium 20 mg 04/07/19 22:00 Pravachol PO QHS [facility] Sodium Chloride 10 ml 04/07/19 10:00 04/07/19 10:12 Sodium Chloride Flush Syringe 10 Ml IV 10 ml BID [facility] Administration Sodium Chloride 10 ml 04/06/19 22:46 Sodium Chloride Flush Syringe 10 Ml IV PRN PRN LINE FLUSH
[2019-04-07] MEDS ORDERED: ALUM-MAG HYDROX-SIMETH 200-200-20MG/5ML ONE (13:04)
--- NOTE | 2019-04-07 13:07 | Operative Report ---
Operative Report Operative Report: EXAM: 1. Ultrasound guided access of the left common femoral artery 2. Angiography of the left lower extremity 3. Selection of the abdominal aorta with angiography 4. Selection of the right external iliac artery, superficial femoral artery, popliteal artery, peroneal artery and posterior tibial artery 5. Atherectomy of the right peroneal artery and tibioperoneal trunk with a 1.5 mm solid CSI atherectomy device 6. Angioplasty of the right peroneal artery with a 2-2.5 mm angioplasty ballon 7. Angioplasty of the right tibioperoneal trunk with a 3.5 mm angioplasty balloon 8. Atherectomy of the right posterior tibial artery and common plantar artery with a 1.5 mm solid CSI atherectomy device 9. Angioplasty of the right posterior tibial artery and common plantar artery with a 2-2.5 mm angioplasty balloon 10. Closure of the left common femoral artery with a 6 Fr proglide DATE: 04/07/19 ABSORPTION OPERATOR: MERRITT HASKINS MD INDICATION: End-stage renal disease with critical limb ischemia versus subacute limb ischemia who presents for revascularization. MEDICATIONS: Please see nursing report for full details. DEVICES: 1.5 mm solid CSI atherectomy device 2-2.5 mm tapered nanocross angioplasty balloon 3.5 mm angioplasty balloon CONTRAST: Please see Court Specialist report for full details PROCEDURE: The risks, benefits, and alternatives were discussed with the patient; written informed consent was obtained. The groins were prepped and draped in a sterile fashion. The left common femoral artery was evaluated with ultrasound was patent. Under direct ultrasound guidance, the left common femoral artery was accessed with a 21-gauge micropuncture needle. 0.01 inch wire was passed into the aorta. Needle was exchanged for transitional dilator. Wire was exchanged for 0.035 inch wire. Transitional dilator was exchanged for 5 [place] sheath. Digital subtraction angiography was performed demonstrating an appropriate puncture site above the bifurcation below the inferior epigastric artery. Left common femoral artery, and external iliac artery were patent. The profundofemoral artery had moderate 50% disease at the midportion. There is moderate 50% atherosclerotic stenotic disease of the left proximal superficial femoral artery. The abdominal aorta was selected and digital subtraction angiography was performed demonstrating patency of the infrarenal abdominal aorta, bilateral common iliac arteries, bilateral internal iliac arteries, and bilateral external iliac arteries. The right common femoral artery, superficial femoral artery, and popliteal artery were selected and digital subtraction angiography was performed demonstrating patency of the right common femoral artery and profundofemoral artery. The superficial femoral artery had multifocal 20-30% narrowings in the proximal and midportion of the vessel and a 40% narrowing in the distal portion of the vessel. The popliteal artery had 20% narrowings within it. Below the popliteal artery, there is a 90% tibioperoneal trunk lesion, 50% proximal left posterior tibial artery lesion, distal occlusion of the left posterior tibial artery with reconstitution from the posterior communicating branches of the peroneal artery with focal 90% narrowings in the common plantar artery. The peroneal artery was proximally occluded with a large collateral around the occlusion with reconstitution at the midportion of the vessel which had a focal 90% narrowing within it with the distal portion of the vessel patent. The anterior tibial artery was patent for a few centimeters and subsequently was occluded without evidence of reconstitution given the atretic dorsalis pedis. The patient was then heparinized. Sheath was exchanged for a 90 cm [place] destination positioned in the right popliteal artery. Wire and catheters were used to cross the peroneal artery occlusion and the peroneal artery was selected. Digital subtraction angiography was performed confirming position. Viperwire was passed into the peroneal artery. Atherectomy with 1.5 mm CSI solid device was performed of the proximal and mid peroneal artery which was then treated with a 2-2.5 mm angioplasty balloon. The tibioperoneal trunk was also treated with atherectomy and then treated with a 3.5 mm angioplasty balloon. Digital subtraction angiography demonstrated less than 10-20% residual narrowing of the peroneal artery with prompt flow to the communicating arteries from the peroneal artery. The posterior tibial artery was then selected and wire and catheters were used to cross the occlusion and digital subtraction angiography was performed confirming position. Viperwire was then passed into the lateral plantar artery. CSI atherectomy was then performed of the proximal posterior tibial artery, distal posterior tibial artery, and common plantar artery. 2-2.5 mm angioplasty balloon was then used to perform angioplasty of the common plantar artery, and posterior tibial artery. Digital subtraction angiography was performed demonstrating two-vessel runoff to the foot with less than 20% residual narrowing of the posterior tibial and peroneal artery with rapid filling of the common plantar arteries filling the foot which then fill the toes through an intact pedal arch. At this point, all wires, catheters, and sheaths were retracted to the left external iliac artery. Site was closed with a 6 [place]uan Pro-glide. Immediate hemostasis was achieved. Compression dressing applied. Patient tolerated the procedure well. No immediate postprocedure complication. FINDINGS: Please see procedure note above. IMPRESSION: 1. Successful atherectomy and angioplasty of the right tibial peroneal trunk and peroneal artery. 2. Successful atherectomy and angioplasty of the right posterior tibial artery.
[2019-04-07] MEDS ORDERED: NACL 0.9% 100 ML IV PRN (13:24)
--- NOTE | 2019-04-07 14:11 | Consultation ---
History of Present Illness Consult date: 04/07/19 Chief complaint: Gangrene of right toes - History of present illness History of present illness: 79 yo female with CHF and h/o dry gangrene of RLE toes. Pt is s/p a left TMA and had a revascularization procedure to her RLE today by Dr. Walsh. Past History Past Medical History: ESRD ((T//S)), heart failure (EF 10%), hypertension (pulmonary htn), PVD, seizures, other (hx of Kidney stones, lung nodule, vitamin d defficency) Past Surgical History: CABG, Other (left foot amputation of toes, Right upper arm AV fistula, PAD with lower extremity bypass) Social history: lives with family Family history: no significant family history Medications and Allergies Allergies Allergy/AdvReac Type Severity Reaction Status Date / Time phenytoin sodium Allergy Anaphylaxis Verified 05/08/16 07:07 [From Dilantin] phenytoin sodium extended Allergy Anaphylaxis Verified 05/08/16 07:07 [From Dilantin] Home Medications Medication Instructions Recorded Confirmed Last Taken Type Ferrous Sulfate [Iron 325 MG] 325 mg PO DAILY 01/04/19 04/06/19 01/03/19 History Aspirin EC [Halfprin EC] 81 mg PO QDAY #30 tablet. 01/07/19 04/06/19 Unknown Rx Clopidogrel [Plavix] 75 mg PO QDAY #30 tablet 01/07/19 04/06/19 Unknown Rx Metoprolol [Lopressor TAB] 50 mg PO BID #60 tablet 01/07/19 04/06/19 Unknown Rx Pravastatin [Pravachol] 20 mg PO QHS #30 tablet 01/07/19 04/06/19 Unknown Rx Famotidine [Pepcid] 20 mg PO DAILY tablet 01/31/19 04/06/19 Unknown Rx Lisinopril [Zestril TAB] 2.5 mg PO QDAY tablet 01/31/19 04/06/19 Unknown Rx Lispro Insulin [HumaLOG] 0 unit SUB-Q ACHS units 01/31/19 04/06/19 Unknown Rx Min Oil/Petrolatum [Artificial 1 applic OU Q4HR PRN tube 01/31/19 04/06/19 Unknown Rx Tears Ophth Oint] guaiFENesin DM [Guaifenesin Dm 10 ml PO Q4H PRN oral.liqd 01/31/19 04/06/19 Unknown Rx Syrup] Active Meds: Active Medications Acetaminophen (Tylenol) 650 mg PO Q4H PRN PRN Reason: Pain MILD(1-3)/Fever >100.5/KEE Aspirin (Halfprin Ec) 81 mg PO QDAY [facility] Last Admin: 04/07/19 10:12 Dose: 81 mg Documented by: Clopidogrel Bisulfate (Plavix) 75 mg PO QDAY [facility] Last Admin: 04/07/19 10:12 Dose: 75 mg Documented by: Dextrose (D50w (25gm) Syringe) 50 ml IV PRN PRN PRN Reason: Hypoglycemia Famotidine (Pepcid) 20 mg PO DAILY [facility] Last Admin: 04/07/19 10:12 Dose: 20 mg Documented by: Ferrous Sulfate (Feosol) 325 mg PO DAILY [facility] Last Admin: 04/07/19 10:12 Dose: 325 mg Documented by: Guaifenesin (Guaifenesin Dm Syrup) 10 ml PO Q4H PRN PRN Reason: Cough Heparin Sodium/Sodium Chloride (Heparin/ 0.45% Nacl-25,000 Unit/500 Ml) 25,000 unit in 500 mls @ 16 mls/hr IV TITR [facility]; Protocol Last Titration: 04/07/19 06:21 Dose: 850 units/hr, 17 mls/hr Documented by: Sodium Chloride (Nacl 0.9%) 100 mls @ 999 mls/hr IV ALHAJI PRN PRN Reason: Hypotension Insulin Human Lispro (Humalog) 0 unit SUB-Q ACHS [facility]; Protocol Last Admin: 04/07/19 08:00 Dose: Not Given Documented by: Lisinopril (Zestril) 2.5 mg PO QDAY [facility] Last Admin: 04/07/19 10:12 Dose: 2.5 mg Documented by: Metoprolol Tartrate (Lopressor) 50 mg PO BID [facility] Last Admin: 04/07/19 10:11 Dose: 50 mg Documented by: Morphine Sulfate (Morphine) 2 mg IV Q4H PRN PRN Reason: Pain, Moderate (4-6) Multi-Ingred Cream/Lotion/Oil/Oint (Artificial Tears Ophth Oint) 1 applic OU Q4HR PRN PRN Reason: Dry Eye(s) Ondansetron HCl (Zofran) 4 mg IV Q8H PRN PRN Reason: Nausea And Vomiting Oxycodone/Acetaminophen (Percocet 5/325) 1 tab PO Q6H PRN PRN Reason: Pain, Moderate (4-6) Pravastatin Sodium (Pravachol) 20 mg PO QHS [facility] Sodium Chloride (Sodium Chloride Flush Syringe 10 Ml) 10 ml IV BID [facility] Last Admin: 04/07/19 10:12 Dose: 10 ml Documented by: Sodium Chloride (Sodium Chloride Flush Syringe 10 Ml) 10 ml IV PRN PRN PRN Reason: LINE FLUSH Review of Systems All systems: negative (none) Exam Vital Signs Temp Pulse Resp BP Pulse Ox 98 F 75 17 135/75 98 04/06/19 19:25 04/06/19 19:25 04/06/19 19:25 04/06/19 19:25 04/06/19 19:25 - General physical appearance Positive: well developed, well nourished, no distress - Eyes Positive: PERRL, normal occular movement - ENT Positive: normal pinna, normal nares, normal mucosa, no hearing loss, no congestion - Neck Positive: no masses, no bruits, trachea midline, no venous distension - Respiratory Positive: normal expansion, normal respiratory effort, clear to auscultation - Cardiovascular Rhythm: regular Heart Sounds: Present: S1 & S2. Absent: rub, click - Extremities Extremity abnormal: other (I cannot palpate the right DP or PT pulses. The toes of the right foot appear viable. There is blistered skin over the dorsal aspect of the right foot which was debrided leaving a 4.5 X 8 X 0.1 cm area of fresh, hypopigmented skin.) - Breasts Breasts: deferred - Abdomen Abdomen: Present: soft, bowel sounds normal. Absent: tender, distended Hernia: none - Genitourinary Female Genitourinary: deferred - Neurologic Neurologic: alert and oriented to time, place and person, motor strength and se nsation are grossly intact - Psychiatric Psychiatric: appropriate mood/affect, intact judgment & insight Results - Labs 04/07/19 04:42 04/07/19 04:42 Abnormal lab results 04/06/19 04/06/19 04/07/19 Range/Units 17:33 17:33 04:42 MCH 25 L 26 L (28-32) pg RDW 18.0 H 17.8 H (13.2-15.2) % Lymph % (Auto) 13.1 L (13.4-35.0) % Brooke % (Auto) 9.5 H 10.2 H (0.0-7.3) % Lymph # 0.7 L 0.8 L (1.2-5.4) K/mm3 Seg Neutrophils % 75.5 H 70.4 H (40.0-70.0) % Heparin Anti-Xa Level (0.3-0.7) U.I./ml BUN 36 H (7-17) mg/dL Creatinine 5.2 H (0.7-1.2) mg/dL Glucose 118 H (65-100) mg/dL Calcium 8.1 L (8.4-10.2) mg/dL Alkaline Phosphatase 164 H (35-129) units/L NT-Pro-B Natriuret Pep > 04566 H (0-900) pg/mL Albumin 3.5 L (3.9-5) g/dL HDL Cholesterol (40-59) mg/dL 04/07/19 04/07/19 Range/Units 04:42 04:42 MCH (28-32) pg RDW (13.2-15.2) % Lymph % (Auto) (13.4-35.0) % Brooke % (Auto) (0.0-7.3) % Lymph # (1.2-5.4) K/mm3 Seg Neutrophils % (40.0-70.0) % Heparin Anti-Xa Level 0.27 L (0.3-0.7) U.I./ml BUN 35 H (7-17) mg/dL Creatinine 5.5 H (0.7-1.2) mg/dL Glucose 112 H (65-100) mg/dL Calcium 7.6 L (8.4-10.2) mg/dL Alkaline Phosphatase (35-129) units/L NT-Pro-B Natriuret Pep (0-900) pg/mL Albumin (3.9-5) g/dL HDL Cholesterol 63 H (40-59) mg/dL Diabetes panel 04/06/19 04/07/19 04/07/19 Range/Units 17:33 04:42 04:42 Sodium 139 141 (137-145) mmol/L Potassium 4.9 4.5 (3.6-5.0) mmol/L Chloride 99.1 103.1 (98-107) mmol/L Carbon Dioxide 25 25 (22-30) mmol/L BUN 36 H 35 H (7-17) mg/dL Creatinine 5.2 H 5.5 H (0.7-1.2) mg/dL Glucose 118 H 112 H (65-100) mg/dL Hemoglobin A1c 5.6 (4-6) % Calcium 8.1 L 7.6 L (8.4-10.2) mg/dL AST 30 (5-40) units/L ALT 21 (7-56) units/L Alkaline Phosphatase 164 H (35-129) units/L Total Protein 7.0 (6.3-8.2) g/dL Albumin 3.5 L (3.9-5) g/dL Triglycerides 64 (2-149) mg/dL HDL Cholesterol 63 H (40-59) mg/dL Calcium panel 04/06/19 04/07/19 Range/Units 17:33 04:42 Calcium 8.1 L 7.6 L (8.4-10.2) mg/dL Albumin 3.5 L (3.9-5) g/dL Pituitary panel 04/06/19 04/07/19 Range/Units 17:33 04:42 Sodium 139 141 (137-145) mmol/L Potassium 4.9 4.5 (3.6-5.0) mmol/L Chloride 99.1 103.1 (98-107) mmol/L Carbon Dioxide 25 25 (22-30) mmol/L BUN 36 H 35 H (7-17) mg/dL Creatinine 5.2 H 5.5 H (0.7-1.2) mg/dL Glucose 118 H 112 H (65-100) mg/dL Calcium 8.1 L 7.6 L (8.4-10.2) mg/dL Adrenal panel 04/06/19 04/07/19 Range/Units 17:33 04:42 Sodium 139 141 (137-145) mmol/L Potassium 4.9 4.5 (3.6-5.0) mmol/L Chloride 99.1 103.1 (98-107) mmol/L Carbon Dioxide 25 25 (22-30) mmol/L BUN 36 H 35 H (7-17) mg/dL Creatinine 5.2 H 5.5 H (0.7-1.2) mg/dL Glucose 118 H 112 H (65-100) mg/dL Calcium 8.1 L 7.6 L (8.4-10.2) mg/dL Total Bilirubin 0.40 (0.1-1.2) mg/dL AST 30 (5-40) units/L ALT 21 (7-56) units/L Alkaline Phosphatase 164 H (35-129) units/L Total Protein 7.0 (6.3-8.2) g/dL Albumin 3.5 L (3.9-5) g/dL Assessment and Plan - Patient Problems (1) PVD (peripheral vascular disease) Current Visit: No Status: Acute Plan to address problem: 1) At this point, there is no indication for surgical intervention. 2) Pt can f/u in the [facility] re her right foot wounds.
--- NOTE | 2019-04-07 15:59 | Event Note ---
Date: 04/07/19 Wound care will need to be consulted and wound care management/home health will need to be involved for wound care. Patient will need to be set up at outpatient wound care facility ([facility]). Consider hyperbaric oxygen. Patient is status post revascularization. Flat for 4 hours. Continue aspirin and Plavix. Heparin has been discontinued. I'll start patient on Trental, one half pill daily. Follow-up with [facility] with me in 2 weeks. Keep the forefoot offloaded. Postop shoe.
[2019-04-07 17:18] LABS: Hepatitis B Surface Antigen Non-Reactive (Negative); Hepatitis C Virus Antibody Non-Reactive (NonReactive)
[2019-04-07] MEDS: TRENTAL PO SCH (17:29)
--- NOTE | 2019-04-07 18:02 | Consultation ---
History of Present Illness - Reason for Consult Consult date: 04/07/19 end stage renal disease Requesting physician: MERRITT HASKINS - History of Present Illness This is a 78 yo AAF with past medical history of hypertension, ESRD on HD on TTS schedule, DM, h/o CVA, PVD, Pulmonary HTN, PVD s/p a left TMA who is admitted for revascularization procedure to her RLE. Renal consult is requested for management of ESRD/HD. Past History Past Medical History: ESRD ((T//)), heart failure (EF 10%), hypertension (pulmonary htn), PVD, seizures, other (hx of Kidney stones, lung nodule, vitamin d defficency) Past Surgical History: CABG, Other (left foot amputation of toes, Right upper arm AV fistula, PAD with lower extremity bypass) Social history: lives with family Family history: no significant family history Medications and Allergies Allergies Allergy/AdvReac Type Severity Reaction Status Date / Time phenytoin sodium Allergy Anaphylaxis Verified 05/08/16 07:07 [From Dilantin] phenytoin sodium extended Allergy Anaphylaxis Verified 05/08/16 07:07 [From Dilantin] Home Medications Medication Instructions Recorded Confirmed Last Taken Type Ferrous Sulfate [Iron 325 MG] 325 mg PO DAILY 01/04/19 04/06/19 01/03/19 History Aspirin EC [Halfprin EC] 81 mg PO QDAY #30 tablet. 01/07/19 04/06/19 Unknown Rx Clopidogrel [Plavix] 75 mg PO QDAY #30 tablet 01/07/19 04/06/19 Unknown Rx Metoprolol [Lopressor TAB] 50 mg PO BID #60 tablet 01/07/19 04/06/19 Unknown Rx Pravastatin [Pravachol] 20 mg PO QHS #30 tablet 01/07/19 04/06/19 Unknown Rx Famotidine [Pepcid] 20 mg PO DAILY tablet 01/31/19 04/06/19 Unknown Rx Lisinopril [Zestril TAB] 2.5 mg PO QDAY tablet 01/31/19 04/06/19 Unknown Rx Lispro Insulin [HumaLOG] 0 unit SUB-Q ACHS units 01/31/19 04/06/19 Unknown Rx Min Oil/Petrolatum [Artificial 1 applic OU Q4HR PRN tube 01/31/19 04/06/19 Unknown Rx Tears Ophth Oint] guaiFENesin DM [Guaifenesin Dm 10 ml PO Q4H PRN oral.liqd 01/31/19 04/06/19 Unknown Rx Syrup] Active Meds: Active Medications Acetaminophen (Tylenol) 650 mg PO Q4H PRN PRN Reason: Pain MILD(1-3)/Fever >100.5/KEE Aspirin (Halfprin Ec) 81 mg PO QDAY [facility] Last Admin: 04/07/19 10:12 Dose: 81 mg Documented by: Clopidogrel Bisulfate (Plavix) 75 mg PO QDAY [facility] Last Admin: 04/07/19 10:12 Dose: 75 mg Documented by: Dextrose (D50w (25gm) Syringe) 50 ml IV PRN PRN PRN Reason: Hypoglycemia Famotidine (Pepcid) 20 mg PO DAILY [facility] Last Admin: 04/07/19 10:12 Dose: 20 mg Documented by: Ferrous Sulfate (Feosol) 325 mg PO DAILY [facility] Last Admin: 04/07/19 10:12 Dose: 325 mg Documented by: Guaifenesin (Guaifenesin Dm Syrup) 10 ml PO Q4H PRN PRN Reason: Cough Sodium Chloride (Nacl 0.9%) 100 mls @ 999 mls/hr IV ALHAJI PRN PRN Reason: Hypotension Insulin Human Lispro (Humalog) 0 unit SUB-Q ACHS [facility]; Protocol Last Admin: 04/07/19 16:57 Dose: Not Given Documented by: Lisinopril (Zestril) 2.5 mg PO QDAY [facility] Last Admin: 04/07/19 10:12 Dose: 2.5 mg Documented by: Metoprolol Tartrate (Lopressor) 50 mg PO BID [facility] Last Admin: 04/07/19 10:11 Dose: 50 mg Documented by: Morphine Sulfate (Morphine) 2 mg IV Q4H PRN PRN Reason: Pain, Moderate (4-6) Multi-Ingred Cream/Lotion/Oil/Oint (Artificial Tears Ophth Oint) 1 applic OU Q4HR PRN PRN Reason: Dry Eye(s) Ondansetron HCl (Zofran) 4 mg IV Q8H PRN PRN Reason: Nausea And Vomiting Oxycodone/Acetaminophen (Percocet 5/325) 1 tab PO Q6H PRN PRN Reason: Pain, Moderate (4-6) Pentoxifylline (Trental) 200 mg PO DAILY [facility] Last Admin: 04/07/19 17:29 Dose: 200 mg Documented by: Pravastatin Sodium (Pravachol) 20 mg PO QHS [facility] Sodium Chloride (Sodium Chloride Flush Syringe 10 Ml) 10 ml IV BID [facility] Last Admin: 04/07/19 10:12 Dose: 10 ml Documented by: Sodium Chloride (Sodium Chloride Flush Syringe 10 Ml) 10 ml IV PRN PRN PRN Reason: LINE FLUSH Review of Systems All systems: negative Constitutional: weakness, malaise Integumentary: sores Exam - Vital Signs Vital signs: Vital Signs Temp Pulse Resp BP Pulse Ox 98 F 75 17 135/75 98 04/06/19 19:25 04/06/19 19:25 04/06/19 19:25 04/06/19 19:25 04/06/19 19:25 - General Appearance General appearance: well-developed, well-nourished, appears stated age EENT: ATNC, PERRL, mucous membranes moist Neck: Present: neck supple Respiratory: Clear to Ascultation Heart: regular, S1S2 Gastrointestinal: Present: normoactive bowel sounds Integumentary: no rash, other (no edema ) Neurologic: no focal deficit, alert and oriented x3, strength 5/5, CN 3-12 intact Psychiatric: mood/affect appropriate, cooperative Results - Lab Results 04/07/19 04:42 04/07/19 04:42 Most recent lab results Calcium 7.6 mg/dL (8.4-10.2) L 04/07/19 04:42 Assessment and Plan - Patient Problems (1) Peripheral vascular complications Current Visit: Yes Status: Acute Plan to address problem: s/p RLE revascularization, on aspirin and Plavix. patient requires to be flat for 4hours. (2) ESRD needing dialysis Current Visit: No Status: Acute Plan to address problem: s/p RLE revascularization, on aspirin and Plavix. patient requires to be flat for 4hours. will arrange HD in AM, pt can continue maintenance HD on TTS scheduled thereafter
[2019-04-07] MEDS ORDERED: PRAVACHOL PO SCH (22:00)
[2019-04-08 05:14] LABS: Hematocrit 39.7 % (30.3-42.9); Hemoglobin 12.5 gm/dl (10.1-14.3)
[2019-04-08] MEDS: HumaLOG SUB-Q SCH ×2 (08:30→15:24)
[2019-04-08] MEDS: HALFPRIN EC PO SCH (09:36)
[2019-04-08] MEDS: FEOSOL PO SCH (09:37)
[2019-04-08] MEDS: PEPCID PO SCH (09:37)
[2019-04-08] MEDS: ZESTRIL PO SCH (09:37)
--- NOTE | 2019-04-08 09:40 | Progress Note ---
Assessment and Plan Gangrene RLE s/p revascularization Hx of PAD End stage renal disease on dialysis Dilated nonischemic cardiomyopathy EF 10-15% 12/2018 Coronary artery disease status post PCI of the proximal LAD using a BMS done December 2017. Chronic hypertesnion Hyperlipidemia Diabetes Recommendations; Dialysis for fluid management. Medical therapy for nonischemic cardiomyopathy and coronary artery disease as tolerated. Otherwise, conservative cardiac management. We will follow intermittently. Subjective Date of service: 04/08/19 Interval history: Patient reports she is feeling better. She denies chest pain and shortness of breath. Objective Vital Signs Temp Pulse Resp BP BP Pulse Ox 04/08/19 07:49 98.0 F 91 H 20 141/91 79 L 04/08/19 02:33 97.3 F L 78 16 122/62 94 04/08/19 02:00 95 04/07/19 21:00 97.8 F 70 16 122/64 95 04/07/19 20:24 97.4 F L 72 18 126/67 94 04/07/19 14:53 66 126/72 93 04/07/19 13:40 68 18 133/77 97 04/07/19 10:12 74 127/63 04/07/19 10:11 74 127/63 - Physical Examination General: No Apparent Distress HEENT: Positive: PERRL Neck: Positive: neck supple Cardiac: Positive: Reg Rate and Rhythm Lungs: Positive: Decreased Breath Sounds Neuro: Positive: Grossly Intact - Labs and Meds CBC 04/08/19 Range/Units 05:02 Hgb 12.5 (10.1-14.3) gm/dl Hct 39.7 (30.3-42.9) % Plt Count 190 (140-440) K/mm3
[2019-04-08] MEDS: LOPRESSOR PO SCH (09:44)
[2019-04-08] MEDS: PLAVIX PO SCH (09:44)
--- NOTE | 2019-04-08 09:46 | Progress Note ---
Assessment and Plan The patient will need wound care rearrange both inpatient and outpatient. The patient will need follow-up in our office for her vascular disease on discharge. Subjective Date of service: 04/08/19 Principal diagnosis: PVD with gangrene Interval history: It with a history of multiple medical problems including peripheral vascular disease. She has had prior left TMA. She presents with gangrene and nonhealing wounds on her right foot. The time of examination, the patient's pressure dressing is been removed. She is sitting in liquid stool. Bilateral lower extremities are cool with nonpalpable pedal pulses. Objective - Constitutional Vitals: Vital Signs - 12hr 04/08/19 04/08/19 04/08/19 02:00 02:33 07:49 Temperature 97.3 F L 98.0 F Pulse Rate 78 91 H Respiratory 16 20 Rate Blood Pressure 122/62 141/91 O2 Sat by Pulse 95 94 79 L Oximetry General appearance: Present: no acute distress - EENT Eyes: EOM intact ENT: hearing intact - Neck Neck: supple - Respiratory Respiratory effort: normal - Breasts Breasts: deferred Extremities: abnormal - Gastrointestinal General gastrointestinal: Present: deferred Rectal Exam: deferred - Genitourinary Female genitourinary: deferred - Labs CBC & Chem 7: 04/08/19 05:02 04/07/19 04:42 Labs: Abnormal lab results 04/07/19 04/07/19 04/08/19 Range/Units 13:58 20:10 07:57 Heparin Anti-Xa Level 1.57 H < 0.10 L (0.3-0.7) U.I./ml POC Glucose 59 L (70-105) 04/08/19 Range/Units 08:33 Heparin Anti-Xa Level (0.3-0.7) U.I./ml POC Glucose 115 H (70-105) Medications & Allergies - Medications Allergies/Adverse Reactions: Allergies phenytoin sodium [From Dilantin] Allergy (Verified 05/08/16 07:07) Anaphylaxis phenytoin sodium extended [From Dilantin] Allergy (Verified 05/08/16 07:07) Anaphylaxis Home Medications: Home Medications Medication Instructions Recorded Confirmed Last Taken Type Ferrous Sulfate [Iron 325 MG] 325 mg PO DAILY 01/04/19 04/06/19 01/03/19 History Aspirin EC [Halfprin EC] 81 mg PO QDAY #30 tablet. 01/07/19 04/06/19 Unknown Rx Clopidogrel [Plavix] 75 mg PO QDAY #30 tablet 01/07/19 04/06/19 Unknown Rx Metoprolol [Lopressor TAB] 50 mg PO BID #60 tablet 01/07/19 04/06/19 Unknown Rx Pravastatin [Pravachol] 20 mg PO QHS #30 tablet 01/07/19 04/06/19 Unknown Rx Famotidine [Pepcid] 20 mg PO DAILY tablet 01/31/19 04/06/19 Unknown Rx Lisinopril [Zestril TAB] 2.5 mg PO QDAY tablet 01/31/19 04/06/19 Unknown Rx Lispro Insulin [HumaLOG] 0 unit SUB-Q ACHS units 01/31/19 04/06/19 Unknown Rx Min Oil/Petrolatum [Artificial 1 applic OU Q4HR PRN tube 01/31/19 04/06/19 Unknown Rx Tears Ophth Oint] guaiFENesin DM [Guaifenesin Dm 10 ml PO Q4H PRN oral.liqd 01/31/19 04/06/19 Unknown Rx Syrup] Active Medications: Generic Name Dose Route Start Last Admin Trade Name Freq PRN Reason Stop Dose Admin Acetaminophen 650 mg 04/06/19 22:46 Tylenol PO Q4H PRN Pain MILD(1-3)/Fever >100.5/KEE Aspirin 81 mg 04/07/19 10:00 04/07/19 10:12 Halfprin Ec PO 81 mg QDAY [facility] Administration Clopidogrel Bisulfate 75 mg 04/07/19 10:00 04/07/19 10:12 Plavix PO 75 mg QDAY [facility] Administration Dextrose 50 ml 04/06/19 22:46 D50w (25gm) Syringe IV PRN PRN Hypoglycemia Famotidine 20 mg 04/07/19 10:00 04/07/19 10:12 Pepcid PO 20 mg DAILY [facility] Administration Ferrous Sulfate 325 mg 04/07/19 10:00 04/07/19 10:12 Feosol PO 325 mg DAILY [facility] Administration Guaifenesin 10 ml 04/06/19 22:45 Guaifenesin Dm Syrup PO Q4H PRN Cough Sodium Chloride 100 mls @ 999 mls/hr 04/07/19 13:24 Nacl 0.9% IV ALHAJI PRN Hypotension Insulin Human Lispro 0 unit 04/07/19 07:30 04/08/19 08:30 Humalog SUB-Q Not Given ACHS [facility] Protocol Lisinopril 2.5 mg 04/07/19 10:00 04/07/19 10:12 Zestril PO 2.5 mg QDAY [facility] Administration Metoprolol Tartrate 50 mg 04/07/19 10:00 04/07/19 23:17 Lopressor PO 50 mg BID [facility] Administration Morphine Sulfate 2 mg 04/06/19 22:46 Morphine IV Q4H PRN Pain, Moderate (4-6) Multi-Ingred Cream/Lotion/Oil/Oint 1 applic 04/06/19 22:45 Artificial Tears Ophth Oint OU Q4HR PRN Dry Eye(s) Ondansetron HCl 4 mg 04/06/19 22:46 Zofran IV Q8H PRN Nausea And Vomiting Oxycodone/Acetaminophen 1 tab 04/06/19 22:46 Percocet 5/325 PO Q6H PRN Pain, Moderate (4-6) Pentoxifylline 200 mg 04/07/19 17:00 04/07/19 17:29 Trental PO 200 mg DAILY [facility] Administration Pravastatin Sodium 20 mg 04/07/19 22:00 04/07/19 23:17 Pravachol PO 20 mg QHS [facility] Administration Sodium Chloride 10 ml 04/07/19 10:00 04/07/19 23:17 Sodium Chloride Flush Syringe 10 Ml IV 10 ml BID [facility] Administration Sodium Chloride 10 ml 04/06/19 22:46 Sodium Chloride Flush Syringe 10 Ml IV PRN PRN LINE FLUSH
[2019-04-08] MEDS: SODIUM CHLORIDE FLUSH SYRINGE 10 ML IV SCH (09:51)
[2019-04-08] MEDS: TRENTAL PO SCH (10:34)
--- NOTE | 2019-04-08 10:37 | Discharge Summary ---
Providers - Providers Date of Admission: 04/06/19 22:47 Attending physician: SONIA SKINNER MD 04/06/19 22:46 Consult to Physician [CONS] Routine Comment: YRIS Consulting Provider: LY RUDOLPH Physician Instructions: CONSULT WAS CALLED TO /TANISHA Reason For Exam: esrd 04/06/19 22:49 Consult to Dietitian/Nutrition [CONS] Routine Physician Instructions: Reason For Exam: Reason for Consult: Malnutrition 04/06/19 22:51 Consult to Physician [CONS] Routine Comment: YRIS Consulting Provider: MATTY LUCAS Physician Instructions: PAKKARINE WAS NOTIFIED Reason For Exam: chf Consult to Physician [CONS] Routine Comment: YRIS Consulting Provider: MERRITT HASKINS Physician Instructions: CONSULT WAS CALLED TO /ALON Reason For Exam: Cold right foot Consult to Wound/ET Nurse [CONS] Routine Reason For Exam: wound eval 04/07/19 09:15 Physical Therapy Evaluation and Treat [CONS] Routine Comment: Reason For Exam: Weakness 04/07/19 13:01 Consult to Physician [CONS] Routine Comment: Consulting Provider: LUBA WALKER Physician Instructions: Reason For Exam: right lower ext cellulitis and poor wound healing Primary care physician: ASHWIN ZAMORA Hospitalization Condition: Stable Hospital course: 79 year old female with ESRD on HD (//), DM, HTN, CVA, PVD, S/P CABG, Pulmonary HTN, Systolic CHF (EF 10%), Malnutrition, Seizure Disorder,and S/P left foot amputation of toes who presents to [facility] ED with complaints of sore/rash, numbness and tingling of right foot. Her son is present at the bedside and has assisted in providing history. Patient states that she's had a right foot sore for the past few weeks. She discussed her symptoms with her final inspector truck trailer who gave her a cream to apply on her foot. However, the cream did not relief her symptoms. 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 Disposition: [id number] HOME UNDER [facility] Time spent for discharge: 35 MINS Exam - Constitutional Vitals: Temp Pulse Resp BP Pulse Ox 98.0 F 75 20 124/68 79 L 04/08/19 07:49 04/08/19 09:44 04/08/19 07:49 04/08/19 09:44 04/08/19 07:49 Plan Activity: advance as tolerated, fall precautions Diet: diabetic Wound: per your surgeon's advice, per wound nurse instructions Special Instructions: record daily weights, record daily BP diary, physical therapy, occupational therapy Follow up with: ASHWIN ZAMORA MD [Primary Care Provider] - 3-5 Days KALEB CHOUDHARY MD [Staff Physician] - 7 Days MERRITT HASKINS MD [Staff Physician] - 7 Days LUBA WALKER MD [Staff Physician] - 7 Days Prescriptions: Pravastatin [Pravachol] 20 mg PO QHS #30 tablet Pentoxifylline [TRENtal] 200 mg PO DAILY #30 tablet
[2019-04-08 13:05] VITALS: BP 131/65
--- NOTE | 2019-04-08 13:41 | Progress Note ---
Assessment and Plan - Patient Problems (1) Peripheral vascular complications Current Visit: Yes Status: Acute Plan to address problem: s/p RLE revascularization, on aspirin and Plavix. (2) ESRD needing dialysis Current Visit: No Status: Acute Plan to address problem: s/p RLE revascularization, on aspirin and Plavix Subjective Date of service: 04/08/19 Principal diagnosis: PVD with gangrene Interval history: Pt seen and examined during HD, tolerating well without acute complaints. BP 134/64 P 67 UF target 2.5L Objective - Vital Signs Vital signs: Vital Signs - 12hr 04/08/19 04/08/19 04/08/19 02:00 02:33 07:49 Temperature 97.3 F L 98.0 F Pulse Rate 78 91 H Respiratory 16 20 Rate Blood Pressure 122/62 141/91 O2 Sat by Pulse 95 94 79 L Oximetry 04/08/19 04/08/19 04/08/19 09:37 09:44 10:30 Temperature 98.0 F Pulse Rate 75 75 72 Respiratory 18 Rate Blood Pressure 124/68 124/68 122/63 O2 Sat by Pulse Oximetry 04/08/19 04/08/19 04/08/19 10:45 11:00 11:15 Temperature Pulse Rate 74 73 77 Respiratory Rate Blood Pressure 127/67 127/70 136/69 O2 Sat by Pulse Oximetry 04/08/19 04/08/19 04/08/19 11:30 11:45 12:00 Temperature Pulse Rate 74 75 70 Respiratory Rate Blood Pressure 136/70 140/70 126/67 O2 Sat by Pulse Oximetry 04/08/19 04/08/19 04/08/19 12:15 12:30 12:45 Temperature Pulse Rate 70 70 67 Respiratory Rate Blood Pressure 134/65 135/64 131/65 O2 Sat by Pulse Oximetry - General Appearance General appearance: well-developed, well-nourished, appears stated age EENT: ATNC, PERRL, mucous membranes moist Neck: no JVD Respiratory: Present: Clear to Ascultation Cardiology: regular, S1S2 Gastrointestinal: normoactive bowel sounds Integumentary: no rash, other (no edema ) Neurologic: no focal deficit, alert and oriented x3, strength 5/5, CN 3-12 intact Psychiatric: mood/affect appropriate, cooperative - Lab 04/08/19 05:02 04/07/19 04:42 Most recent lab results Calcium 7.6 mg/dL (8.4-10.2) L 04/07/19 04:42 Medications & Allergies - Medications Allergies/Adverse Reactions: Allergies phenytoin sodium [From Dilantin] Allergy (Verified 05/08/16 07:07) Anaphylaxis phenytoin sodium extended [From Dilantin] Allergy (Verified 05/08/16 07:07) Anaphylaxis Home Medications: Home Medications Medication Instructions Recorded Confirmed Last Taken Type Ferrous Sulfate [Iron 325 MG] 325 mg PO DAILY 01/04/19 04/06/19 01/03/19 History Aspirin EC [Halfprin EC] 81 mg PO QDAY #30 tablet. 01/07/19 04/06/19 Unknown Rx Clopidogrel [Plavix] 75 mg PO QDAY #30 tablet 01/07/19 04/06/19 Unknown Rx Metoprolol [Lopressor TAB] 50 mg PO BID #60 tablet 01/07/19 04/06/19 Unknown Rx Famotidine [Pepcid] 20 mg PO DAILY tablet 01/31/19 04/06/19 Unknown Rx Lisinopril [Zestril TAB] 2.5 mg PO QDAY tablet 01/31/19 04/06/19 Unknown Rx Lispro Insulin [HumaLOG] 0 unit SUB-Q ACHS units 01/31/19 04/06/19 Unknown Rx Min Oil/Petrolatum [Artificial 1 applic OU Q4HR PRN tube 01/31/19 04/06/19 Unknown Rx Tears Ophth Oint] guaiFENesin DM [Guaifenesin Dm 10 ml PO Q4H PRN oral.liqd 01/31/19 04/06/19 Unknown Rx Syrup] Pentoxifylline [TRENtal] 200 mg PO DAILY #30 tablet 04/08/19 Unknown Rx Pravastatin [Pravachol] 20 mg PO QHS #30 tablet 04/08/19 Unknown Rx Active Medications: Generic Name Dose Route Start Last Admin Trade Name Freq PRN Reason Stop Dose Admin Acetaminophen 650 mg 04/06/19 22:46 Tylenol PO Q4H PRN Pain MILD(1-3)/Fever >100.5/KEE Aspirin 81 mg 04/07/19 10:00 04/08/19 09:36 Halfprin Ec PO 81 mg QDAY LUCIO Administration Clopidogrel Bisulfate 75 mg 04/07/19 10:00 04/08/19 09:44 Plavix PO 75 mg QDAY [facility] Administration Dextrose 50 ml 04/06/19 22:46 D50w (25gm) Syringe IV PRN PRN Hypoglycemia Famotidine 20 mg 04/07/19 10:00 04/08/19 09:37 Pepcid PO 20 mg DAILY [facility] Administration Ferrous Sulfate 325 mg 04/07/19 10:00 04/08/19 09:37 Feosol PO 325 mg DAILY [facility] Administration Guaifenesin 10 ml 04/06/19 22:45 Guaifenesin Dm Syrup PO Q4H PRN Cough Sodium Chloride 100 mls @ 999 mls/hr 04/07/19 13:24 Nacl 0.9% IV ALHAJI PRN Hypotension Insulin Human Lispro 0 unit 04/07/19 07:30 04/08/19 08:30 Humalog SUB-Q Not Given ACHS [facility] Protocol Lisinopril 2.5 mg 04/07/19 10:00 04/08/19 09:37 Zestril PO 2.5 mg QDAY [facility] Administration Metoprolol Tartrate 50 mg 04/07/19 10:00 04/08/19 09:44 Lopressor PO 50 mg BID [facility] Administration Morphine Sulfate 2 mg 04/06/19 22:46 Morphine IV Q4H PRN Pain, Moderate (4-6) Multi-Ingred Cream/Lotion/Oil/Oint 1 applic 04/06/19 22:45 Artificial Tears Ophth Oint OU Q4HR PRN Dry Eye(s) Ondansetron HCl 4 mg 04/06/19 22:46 Zofran IV Q8H PRN Nausea And Vomiting Oxycodone/Acetaminophen 1 tab 04/06/19 22:46 Percocet 5/325 PO Q6H PRN Pain, Moderate (4-6) Pentoxifylline 200 mg 04/07/19 17:00 04/08/19 10:34 Trental PO Not Given DAILY [facility] Pravastatin Sodium 20 mg 04/07/19 22:00 04/07/19 23:17 Pravachol PO 20 mg QHS [facility] Administration Sodium Chloride 10 ml 04/07/19 10:00 04/08/19 09:51 Sodium Chloride Flush Syringe 10 Ml IV 10 ml BID [facility] Administration Sodium Chloride 10 ml 04/06/19 22:46 Sodium Chloride Flush Syringe 10 Ml IV PRN PRN LINE FLUSH
[2019-04-08] MEDS ORDERED: NACL 0.9 (PRIMING MACHINE ONLY DIALYSIS) MC ONE (15:34)
--- NOTE | 2019-04-08 15:59 | Vascular Lab Report ---
BILATERAL ABIS INDICATION / CLINICAL INFORMATION: nonhealing wounds RLE ; PPG of all the R toes. COMPARISON: None available. FINDINGS: Right PT ASHLEY 1.13 Right DP ASHLEY 0.[address] ASHLEY 1.15 Left DP ASHLEY 0.89 Signer Name: Isac Paige MD Signed: 04/08/2019 3:55 PM Workstation Name: [id number]
== END 2019-04-08 04:25 | disposition home health service (06) | DRG 270 ==
LOC: ED 16:35 → 2B-ACE 22:47
PROVIDERS: ADMIT Internal Medicine; ATTEND Internal Medicine
PROC: 04CR3ZZ Extirpation of Matter from Right Posterior Tibial Artery, Percutaneous Approach (ICD-10-PCS; principal; 2019-04-07)
PROC: 04CT3ZZ Extirpation of Matter from Right Peroneal Artery, Percutaneous Approach (ICD-10-PCS; 2019-04-07)
PROC: 04CV3ZZ Extirpation of Matter from Right Foot Artery, Percutaneous Approach (ICD-10-PCS; 2019-04-07)
PROC: 047R3ZZ Dilation of Right Posterior Tibial Artery, Percutaneous Approach (ICD-10-PCS; 2019-04-07)
PROC: 047T3ZZ Dilation of Right Peroneal Artery, Percutaneous Approach (ICD-10-PCS; 2019-04-07)
PROC: 047V3ZZ Dilation of Right Foot Artery, Percutaneous Approach (ICD-10-PCS; 2019-04-07)
PROC: B41D1ZZ Fluoroscopy of Aorta and Bilateral Lower Extremity Arteries using Low Osmolar Contrast (ICD-10-PCS; 2019-04-07)
PROC: 5A1D70Z Performance of Urinary Filtration, Intermittent, Less than 6 Hours Per Day (ICD-10-PCS; 2019-04-08)
DX: E11.52 Type 2 diabetes mellitus with diabetic peripheral angiopathy with gangrene (principal); N18.6 End stage renal disease; E44.0 Moderate protein-calorie malnutrition; Z68.1 Body mass index [BMI] 19.9 or less, adult; I50.22 Chronic systolic (congestive) heart failure; I13.2 Hypertensive heart and chronic kidney disease with heart failure and with stage 5 chronic kidney disease, or end stage renal disease; I42.0 Dilated cardiomyopathy; I70.261 Atherosclerosis of native arteries of extremities with gangrene, right leg; L97.518 Non-pressure chronic ulcer of other part of right foot with other specified severity; I27.20 Pulmonary hypertension, unspecified; G40.909 Epilepsy, unspecified, not intractable, without status epilepticus; E11.22 Type 2 diabetes mellitus with diabetic chronic kidney disease; Z86.73 Personal history of transient ischemic attack (TIA), and cerebral infarction without residual deficits; Z95.1 Presence of aortocoronary bypass graft; Z99.2 Dependence on renal dialysis; Z89.422 Acquired absence of other left toe(s); Z87.442 Personal history of urinary calculi; Z88.8 Allergy status to other drugs, medicaments and biological substances; Z79.82 Long term (current) use of aspirin; Z79.899 Other long term (current) drug therapy; Z79.4 Long term (current) use of insulin
CPT/HCPCS: 36415; 37229; 37233; 71046; 75625; 75710; 76937; 80048; 80053; 80061; 80074; 82962; 83036; 83880; 85014; 85018; 85025; 85049; 85520; 85610; 85730; 93922; 96374; 99291; G0378; A9270-GY; C1724; C1725; C1760; C1769; C1887; J0690; J1644; J1815; J2250; J3010; J7030; J7040; Q9967

== ENCOUNTER 2019-05-03 15:36 | Emergency (ER) | payer MEDICARE ==
--- NOTE | 2019-05-03 17:32 | Emergency Department Report ---
ED Fall HPI - General Chief Complaint: Fall Stated Complaint: HEAD AND NECK PAIN/FALL Time Seen by Provider: 05/03/19 17:16 Source: patient, EMS Mode of arrival: Stretcher - History of Present Illness Initial Comments: Mrs. Miller is a pleasant 79 yo female with hx of ESRD on HD, DM, HTN, CVA, PVD, CHF, seizure disorder, pulmonary HTN who presents with 3 weeks of dyspnea and generalized weakness. Today, she fell fromt the toilet. Her legs did not have the strength to hold her up. She has head and neck pain after the fall. She was able to crawl out of the bedroom. Family member called 911. PCP Dr[address] Cavazos [employer]or Dr. Bess ZAMBRANO Complaint: fall -: This afternoon Fall From: other (toilet while attempting to stand) Fall Witnessed: yes, by family Place Fall Occurred: home Loss of Consciousness: none Prolonged Down Time?: no Symptoms Prior to Fall: other (generalized weakness) Severity: moderate Quality: dull Context: tripped/slipped, other (too weak to stand) Associated Symptoms: unable to walk, other (3 weeks of dyspnea) - Related Data Home Medications Medication Instructions Recorded Confirmed Last Taken Ferrous Sulfate [Iron 325 MG] 325 mg PO DAILY 01/04/19 04/06/19 01/03/19 Previous Rx's Medication Instructions Recorded Last Taken Type Aspirin EC [Halfprin EC] 81 mg PO QDAY #30 tablet. 01/07/19 Unknown Rx Clopidogrel [Plavix] 75 mg PO QDAY #30 tablet 01/07/19 Unknown Rx Metoprolol [Lopressor TAB] 50 mg PO BID #60 tablet 01/07/19 Unknown Rx Famotidine [Pepcid] 20 mg PO DAILY tablet 01/31/19 Unknown Rx Lisinopril [Zestril TAB] 2.5 mg PO QDAY tablet 01/31/19 Unknown Rx Lispro Insulin [HumaLOG] 0 unit SUB-Q ACHS units 01/31/19 Unknown Rx Min Oil/Petrolatum [Artificial 1 applic OU Q4HR PRN tube 01/31/19 Unknown Rx Tears Ophth Oint] guaiFENesin DM [Guaifenesin Dm 10 ml PO Q4H PRN oral.liqd 01/31/19 Unknown Rx Syrup] Pentoxifylline [TRENtal] 200 mg PO DAILY #30 tablet 04/08/19 Unknown Rx Pravastatin [Pravachol] 20 mg PO QHS #30 tablet 04/08/19 Unknown Rx Allergies Allergy/AdvReac Type Severity Reaction Status Date / Time phenytoin sodium Allergy Anaphylaxis Verified 05/08/16 07:07 [From Dilantin] phenytoin sodium extended Allergy Anaphylaxis Verified 05/08/16 07:07 [From Dilantin] ED Review of Systems ROS: Stated complaint: HEAD AND NECK PAIN/FALL Other details as noted in HPI Comment: All other systems reviewed and negative Constitutional: malaise Respiratory: shortness of breath Neurological: headache ED Past Medical Hx - Past Medical History Previous Medical History?: Yes Hx Hypertension: Yes Hx CVA: Yes Hx Heart Attack/AMI: No Hx Congestive Heart Failure: Yes Hx Diabetes: Yes Hx Deep Vein Thrombosis: Yes Hx Pulmonary Embolism: No Hx Liver Disease: No Hx Renal Disease: Yes (ESRD (TTS)) Hx Sickle Cell Disease: No Hx Arthritis: No Hx Seizures: Yes Hx Kidney Stones: Yes Hx Asthma: No Hx COPD: No Hx Tuberculosis: No Hx Dementia: No Hx HIV: No Additional medical history: poor circulation left leg, Pulmonary HTN. vitamin d defficency - Surgical History Past Surgical History?: Yes Hx Coronary Stent: No Hx Open Heart Surgery: No Hx Pacemaker: No Hx Internal Defibrillator: No Hx Cholecystectomy: No Hx Appendectomy: No Hx Breast Surgery: No Additional Surgical History: L foot amputation of toes; AV Fistula Upper R arm, PAD with lower extremity bypass - Social History Smoking Status: Never Smoker Substance Use Type: None - Medications Home Medications: Home Medications Medication Instructions Recorded Confirmed Last Taken Type Ferrous Sulfate [Iron 325 MG] 325 mg PO DAILY 01/04/19 04/06/19 01/03/19 History Aspirin EC [Halfprin EC] 81 mg PO QDAY #30 tablet. 01/07/19 04/06/19 Unknown Rx Clopidogrel [Plavix] 75 mg PO QDAY #30 tablet 01/07/19 04/06/19 Unknown Rx Metoprolol [Lopressor TAB] 50 mg PO BID #60 tablet 01/07/19 04/06/19 Unknown Rx Famotidine [Pepcid] 20 mg PO DAILY tablet 01/31/19 04/06/19 Unknown Rx Lisinopril [Zestril TAB] 2.5 mg PO QDAY tablet 01/31/19 04/06/19 Unknown Rx Lispro Insulin [HumaLOG] 0 unit SUB-Q ACHS units 01/31/19 04/06/19 Unknown Rx Min Oil/Petrolatum [Artificial 1 applic OU Q4HR PRN tube 01/31/19 04/06/19 Unknown Rx Tears Ophth Oint] guaiFENesin DM [Guaifenesin Dm 10 ml PO Q4H PRN oral.liqd 01/31/19 04/06/19 Unknown Rx Syrup] Pentoxifylline [TRENtal] 200 mg PO DAILY #30 tablet 04/08/19 Unknown Rx Pravastatin [Pravachol] 20 mg PO QHS #30 tablet 04/08/19 Unknown Rx ED Physical Exam - General Limitations: Physical Limitation General appearance: alert, in no apparent distress - Head Head exam: Present: atraumatic, normocephalic - Eye Eye exam: Present: normal appearance - ENT ENT exam: Present: mucous membranes moist - Neck Neck exam: Present: normal inspection, full ROM - Respiratory Respiratory exam: Present: normal lung sounds bilaterally. Absent: respiratory distress, wheezes, rales, stridor - Cardiovascular Cardiovascular Exam: Present: regular rate, normal rhythm, normal heart sounds. Absent: systolic murmur, diastolic murmur, rubs, gallop - GI/Abdominal GI/Abdominal exam: Present: soft, normal bowel sounds. Absent: distended, tenderness, guarding, rebound - Extremities Exam Extremities exam: Present: normal inspection - Back Exam Back exam: Present: normal inspection - Neurological Exam Neurological exam: Present: alert, oriented X3 - Psychiatric Psychiatric exam: Present: normal affect, normal mood - Skin Skin exam: Present: warm, dry, intact, normal color. Absent: rash ED Course Vital Signs 05/03/19 05/03/19 05/03/19 16:05 17:38 18:09 Temperature 98.4 F 98.6 F Pulse Rate 84 85 Respiratory 16 16 16 Rate Blood Pressure 122/71 124/72 [Left] O2 Sat by Pulse 97 100 100 Oximetry ED Medical Decision Making - Lab Data Result diagrams: 05/03/19 17:35 05/03/19 17:35 - EKG Data 05/03/19 18:02 EKG obtained 1753 Normal sinus rhythm rate 80 beats a minute normal axis prolonged QT interval and nonspecific T-wave pattern no ST elevation - Radiology Data Radiology results: report reviewed Radiology impressions: Head CT: No acute process Cervical spine CT: No acute process AP portable chest: Persistent prominent bronchovascular markings both bases - Medical Decision Making Mrs. Miller presents with generalized weakness. She fell from the toilet. She does not have an obstructive legs. She's had 3 weeks of shortness of breath. Clinical impression: congestive heart failure exacerbation. Admitted to the hospitalist service in fair condition Critical care attestation.: If time is entered above; I have spent that time in minutes in the direct care of this critically ill patient, excluding procedure time. ED Disposition Clinical Impression: Acute exacerbation of CHF (congestive heart failure), End stage renal disease on dialysis, Elevated troponin, Generalized weakness, Fall at home, CHI (closed head injury) Disposition: OP ADMIT IP TO THIS HOSP Is pt being admited?: Yes Does the pt Need Aspirin: No Condition: Stable - Assessment Assessment Interval: Baseline - Level of Consciousness 1a. Level of Consciousness: alert/keenly responsive - LOC Questions 1b. LOC Questions: answers both correctly - LOC Command 1c. LOC Commands: performs tasks correctly - Best Gaze 2. Best Gaze: normal - Visual 3. Visual: no visual loss - Facial Palsy 4. Facial Palsy: normal symmetrical movement - Motor Arm 5a. Motor Arm Left: no drift 5b. Motor Arm Right: no drift - Motor Leg 6a. Motor Leg Left: no drift 6b. Motor Leg Right: no drift - Limb Ataxia 7. Limb Ataxia: absent - Sensory 8. Sensory: normal - Best Language 9. Best Language: no aphasia - Dysarthria 10. Dysarthria: normal - Extinction and Inattention 11. Extinction/Inattention: no abnormality - Scoring Total Score: 0 Stroke Severity: No Stroke Symptoms
[2019-05-03 17:56] LABS: Basophils # (Auto) 0.1 K/mm3 (0.0-0.1); Basophils % (Auto) 1.2 % (0.0-1.8); Eosinophils % (Auto) 0.9 % (0.0-4.3); Hematocrit 37.6 % (30.3-42.9); Hemoglobin 11.9 gm/dl (10.1-14.3); Lymphocytes # (Auto) 0.6 K/mm3 (1.2-5.4); Lymphocytes % (Auto) 13.5 % (13.4-35.0); Mean Corpuscular HGB Conc 32 % (30-34); Mean Corpuscular Volume 82 fl (79-97); Monocytes # (Auto) 0.5 K/mm3 (0.0-0.8); Monocytes % (Auto) 10.2 % (0.0-7.3); Platelet Count 184 K/mm3 (140-440); Red Blood Count 4.61 M/mm3 (3.65-5.03); Red Cell Distribution Width 19.6 % (13.2-15.2)
[2019-05-03 18:14] LABS: Calcium 7.7 mg/dL (8.4-10.2)
--- NOTE | 2019-05-03 18:39 | XRay Report ---
CHEST 1 VIEW INDICATION: Chest Pain. COMPARISON: 04/06/2019 FINDINGS: SUPPORT DEVICES: None. Vascular stents present right of midline overlying the upper thorax HEART / MEDIASTINUM: No significant abnormality. LUNGS / PLEURA: Prominent bronchovascular markings present both bases. No pneumothorax. ADDITIONAL FINDINGS: IMPRESSION: 1. Persistent prominent bronchovascular markings both bases Signer Name: Rey Lora MD Signed: 05/03/2019 6:34 PM Workstation Name: [id number]
[2019-05-03 19:06] LABS: Chol/HDL Ratio 2.37 %
--- NOTE | 2019-05-03 19:41 | Cat Scan Report ---
CT HEAD WITHOUT CONTRAST INDICATION / CLINICAL INFORMATION: headache s/p fall. TECHNIQUE: All CT scans at this location are performed using CT dose reduction for ALARA by means of automated e xposure control. COMPARISON: Head CT 01/26/2019 and 01/04/2019 FINDINGS: HEMORRHAGE: There has been interval development of a large right frontal lobe parenchymal hematoma wh ich measures about 4.3 x 2.7 cm in transverse dimension by 4.4 cm in superior-inferior dimension. Thi s is mixed attenuation lesion with hyperdense central component and hyperdense surround. There is ass ociated mass effect with effacement of adjacent cortical sulci and mild compression of the frontal ho rn of the right lateral ventricle. EXTRA-AXIAL SPACES: Cortical sulci and sylvian fissures are enlarged reflecting a degree of parenchym al volume loss which is within normal limits for the patient's age. Basilar cisterns have an unremark able appearance. VENTRICULAR SYSTEM: The third and lateral ventricles are enlarged reflecting resonance of age related parenchymal volume loss. CEREBRAL PARENCHYMA: Encephalomalacia is present in the frontal lobes of both cerebral hemispheres se condary to remote neurovascular surgical procedure. Patient is status post bifrontal craniotomy. Vasc ular clips are present in the anterior interhemispheric fissure. As described above the large parench ymal hematoma is identified in the left frontal lobe. Elsewhere microvascular ischemic changes are no elyssa in keeping with the patient's age of 79 years. MIDLINE SHIFT OR HERNIATION: Mild mass effect is produced by the patient's right frontal lobe hematom a. This is compensated for a large part by a pre-existing encephalomalacia in this same distribution. CEREBELLUM / BRAINSTEM: Brainstem and cerebellum have an unremarkable appearance. INTRACRANIAL VESSELS: Extensively calcified atherosclerotic plaque is present along the course of the cavernous segments of both internal carotid arteries. Similar findings are seen at the distal verteb ral arteries. ORBITS: visualized portions of the orbits have an unremarkable appearance. SOFT TISSUES of HEAD: No significant abnormality. CALVARIUM: Evaluation of bone windows reveals no abnormalities. PARANASAL SINUSES / MASTOID AIR CELLS: Paranasal sinuses are free from inflammatory mucosal disease. Mastoid air cells are normally pneumatized. ADDITIONAL FINDINGS: None. IMPRESSION: 1. There has been interval development of a right frontal lobe parenchymal hematoma measuring about 4 .3 x 2.7 x 4.4 cm in overall dimension. 2. Postoperative changes status post bifrontal craniotomy for neurovascular surgical procedure. Critical result: Time of discovery: 1830 Central standard time Notification: I discussed the results of this study with Dr. Pulido of the [facility] emergency department at about 1839 Central standard time Signer Name: Wander Beckett MD Signed: 05/03/2019 7:37 PM Workstation Name: [id number]
--- NOTE | 2019-05-03 19:50 | Cat Scan Report ---
CT CERVICAL SPINE WITHOUT CONTRAST INDICATION / CLINICAL INFORMATION: Trauma. Patient fell sustaining neck injury. Neck pain. TECHNIQUE: Axial CT images were obtained through the cervical spine. Sagittal and coronal reformatted images wer e produced. All CT scans at this location are performed using CT dose reduction for ALARA by means of automated exposure control. COMPARISON: None available. FINDINGS: TRAUMA: This abnormal study demonstrates an acute type II odontoid fracture with 2 to 3 mm of displac ement. No additional fractures are identified. ALIGNMENT: No significant abnormality. VERTEBRAE: Type II odontoid fracture as described above. Degenerative changes are seen elsewhere. DISC SPACES: Loss of disc height is noted at the C5-6 and C6-7 levels. INDIVIDUAL LEVEL ANALYSIS: C2-3: Small central disc protrusion. No additional abnormality. C3-4: Mild facet arthropathy is noted. Central spinal canal and neuroforamina are adequately maintain ed. C4-5: Moderate central and right paracentral disc herniation with flattening the ventral surface of t he thecal sac. Central spinal canal and neuroforamina are adequately maintained. C5-6: Disc desiccation is noted. Mild posterior osteophyte formation is seen. Central spinal canal is adequately maintained. Uncovertebral arthropathy contributes to right worse than left neuroforaminal stenosis at the C6 nerve root level. C6-7: Mild loss of disc height is noted. Anterior osteophyte formation is observed. Central spinal ca nal and neuroforamina are adequately maintained. C7-T1:No abnormality. CRANIOCERVICAL JUNCTION:No significant abnormality. SPINAL CANAL: No indication of central canal stenosis. PARASPINAL SOFT TISSUES: Ossified atherosclerotic plaque at both carotid bifurcations. The lesion sof t tissue neck is limited secondary to remote possibility of subcutaneous and deep fascial plane adipo se tissue. An endovascular stent is noted in the right superior mediastinum this is incompletely eval uated but appears to be within the distal right subclavian vein. LUNG APICES: No significant abnormality of visualized lungs. IMPRESSION: 1. Recent Type II odontoid fracture. 2. Degenerative disc disease C4-5 and C5-6. Critical result: Time of discovery: 1835 Central standard time Notification: I discussed the findings of this study with Dr. Pulido of the [facility] emergency department at about 1840 Central standard time. Signer Name: Wander Beckett MD Signed: 05/03/2019 7:46 PM Workstation Name: [employer]
[2019-05-03 20:09] VITALS: BP 118/60
== END 2019-05-03 20:32 | disposition admitted as inpatient to this hospital (09) ==
LOC: ED 15:36 → UNDOADMIN 18:33 → 4A 18:33 → UNDODISIN 20:55
DX: S12.9XXA Fracture of neck, unspecified, initial encounter (principal); S12.120A Other displaced dens fracture, initial encounter for closed fracture; S09.8XXA Other specified injuries of head, initial encounter; S00.83XA Contusion of other part of head, initial encounter; I13.2 Hypertensive heart and chronic kidney disease with heart failure and with stage 5 chronic kidney disease, or end stage renal disease; I50.9 Heart failure, unspecified; N18.6 End stage renal disease; R62.7 Adult failure to thrive; E11.22 Type 2 diabetes mellitus with diabetic chronic kidney disease; E11.51 Type 2 diabetes mellitus with diabetic peripheral angiopathy without gangrene; Z99.2 Dependence on renal dialysis; Z86.73 Personal history of transient ischemic attack (TIA), and cerebral infarction without residual deficits; Z86.718 Personal history of other venous thrombosis and embolism; Z87.442 Personal history of urinary calculi; Z89.432 Acquired absence of left foot; Z79.82 Long term (current) use of aspirin; Z79.899 Other long term (current) drug therapy; W18.11XA Fall from or off toilet without subsequent striking against object, initial encounter; Y93.89 Activity, other specified; Y92.091 Bathroom in other non-institutional residence as the place of occurrence of the external cause; Y99.8 Other external cause status
CPT/HCPCS: 36415; 70450; 71045; 72125; 80048; 80061; 84484; 85025; 93005; 93010; G0378

== ENCOUNTER 2019-05-22 13:14 | Emergency (ER) | payer MEDICARE ==
--- NOTE | 2019-05-22 13:52 | Emergency Department Report ---
ED Fall HPI - General Chief Complaint: Head Injury Stated Complaint: GROUND LEVEL FALL Time Seen by Provider: 05/22/19 13:42 Source: patient, EMS Mode of arrival: Stretcher - History of Present Illness Initial Comments: Patient is 79 years old female with history of end-stage renal disease on hemodialysis. Patient brought to the emergency room via EMS for evaluation after a fall. Patient is a son who witnessed the fall. He stated his mom was going to the bathroom when she lost her balance and fell. She is complaining of neck pain and headache. Patient had neck surgery last week at [facility]. Patient denied any other injuries. Patient had dialysis yesterday. MD Complaint: fall -: This morning Fall From: standing Fall Witnessed: yes, by family Place Fall Occurred: home Loss of Consciousness: none Prolonged Down Time?: no Symptoms Prior to Fall: none Location: head, neck Context: history of frequent falls - Related Data Home Medications Medication Instructions Recorded Confirmed Last Taken Ferrous Sulfate [Iron 325 MG] 325 mg PO DAILY 01/04/19 04/06/19 01/03/19 Previous Rx's Medication Instructions Recorded Last Taken Type Aspirin EC [Halfprin EC] 81 mg PO QDAY #30 tablet. 01/07/19 Unknown Rx Clopidogrel [Plavix] 75 mg PO QDAY #30 tablet 01/07/19 Unknown Rx Metoprolol [Lopressor TAB] 50 mg PO BID #60 tablet 01/07/19 Unknown Rx Famotidine [Pepcid] 20 mg PO DAILY tablet 01/31/19 Unknown Rx Lisinopril [Zestril TAB] 2.5 mg PO QDAY tablet 01/31/19 Unknown Rx Lispro Insulin [HumaLOG] 0 unit SUB-Q ACHS units 01/31/19 Unknown Rx Min Oil/Petrolatum [Artificial 1 applic OU Q4HR PRN tube 01/31/19 Unknown Rx Tears Ophth Oint] guaiFENesin DM [Guaifenesin Dm 10 ml PO Q4H PRN oral.liqd 01/31/19 Unknown Rx Syrup] Pentoxifylline [TRENtal] 200 mg PO DAILY #30 tablet 04/08/19 Unknown Rx Pravastatin [Pravachol] 20 mg PO QHS #30 tablet 04/08/19 Unknown Rx Allergies Allergy/AdvReac Type Severity Reaction Status Date / Time phenytoin sodium Allergy Anaphylaxis Verified 05/08/16 07:07 [From Dilantin] phenytoin sodium extended Allergy Anaphylaxis Verified 05/08/16 07:07 [From Dilantin] ED Review of Systems ROS: Stated complaint: GROUND LEVEL FALL Other details as noted in HPI Comment: All other systems reviewed and negative Constitutional: denies: chills, fever Respiratory: denies: cough, shortness of breath, SOB with exertion, wheezing Cardiovascular: denies: chest pain, palpitations Gastrointestinal: denies: abdominal pain, nausea, vomiting, diarrhea, constipation, hematemesis, melena, hematochezia Musculoskeletal: denies: back pain Neurological: denies: headache, weakness, numbness, paresthesias, confusion, abnormal gait ED Past Medical Hx - Past Medical History Previous Medical History?: Yes Hx Hypertension: Yes Hx CVA: Yes Hx Heart Attack/AMI: No Hx Congestive Heart Failure: Yes Hx Diabetes: Yes Hx Deep Vein Thrombosis: Yes Hx Pulmonary Embolism: No Hx Liver Disease: No Hx Renal Disease: Yes (ESRD (TTS)) Hx Sickle Cell Disease: No Hx Arthritis: No Hx Seizures: Yes Hx Kidney Stones: Yes Hx Asthma: No Hx COPD: No Hx Tuberculosis: No Hx Dementia: No Hx HIV: No Additional medical history: poor circulation left leg, Pulmonary HTN. vitamin d defficency - Surgical History Past Surgical History?: Yes Hx Coronary Stent: No Hx Open Heart Surgery: No Hx Pacemaker: No Hx Internal Defibrillator: No Hx Cholecystectomy: No Hx Appendectomy: No Hx Breast Surgery: No Additional Surgical History: L foot amputation of toes; AV Fistula Upper R arm, PAD with lower extremity bypass - Social History Smoking Status: Unknown if ever smoked Substance Use Type: None - Medications Home Medications: Home Medications Medication Instructions Recorded Confirmed Last Taken Type Ferrous Sulfate [Iron 325 MG] 325 mg PO DAILY 01/04/19 04/06/19 01/03/19 History Aspirin EC [Halfprin EC] 81 mg PO QDAY #30 tablet. 01/07/19 04/06/19 Unknown Rx Clopidogrel [Plavix] 75 mg PO QDAY #30 tablet 01/07/19 04/06/19 Unknown Rx Metoprolol [Lopressor TAB] 50 mg PO BID #60 tablet 01/07/19 04/06/19 Unknown Rx Famotidine [Pepcid] 20 mg PO DAILY tablet 01/31/19 04/06/19 Unknown Rx Lisinopril [Zestril TAB] 2.5 mg PO QDAY tablet 01/31/19 04/06/19 Unknown Rx Lispro Insulin [HumaLOG] 0 unit SUB-Q ACHS units 01/31/19 04/06/19 Unknown Rx Min Oil/Petrolatum [Artificial 1 applic OU Q4HR PRN tube 01/31/19 04/06/19 Unknown Rx Tears Ophth Oint] guaiFENesin DM [Guaifenesin Dm 10 ml PO Q4H PRN oral.liqd 01/31/19 04/06/19 Unk nown Rx Syrup] Pentoxifylline [TRENtal] 200 mg PO DAILY #30 tablet 04/08/19 Unknown Rx Pravastatin [Pravachol] 20 mg PO QHS #30 tablet 04/08/19 Unknown Rx ED Physical Exam - General Limitations: Physical Limitation General appearance: alert, in no apparent distress - Head Head exam: Present: atraumatic, normocephalic, normal inspection - Eye Eye exam: Present: normal appearance, PERRL - ENT ENT exam: Present: normal exam, normal orophraynx, mucous membranes moist - Neck Neck exam: Present: normal inspection. Absent: tenderness, meningismus - Respiratory Respiratory exam: Present: normal lung sounds bilaterally - Cardiovascular Cardiovascular Exam: Present: regular rate, normal rhythm, normal heart sounds - GI/Abdominal GI/Abdominal exam: Present: soft, normal bowel sounds. Absent: distended, tenderness, guarding, rebound, rigid, organomegaly, mass, bruit, pulsatile mass, hernia - Extremities Exam Extremities exam: Present: full ROM, normal capillary refill. Absent: calf tenderness - Back Exam Back exam: Present: normal inspection - Neurological Exam Neurological exam: Present: alert, oriented X3, CN II-XII intact, normal gait, reflexes normal. Absent: motor sensory deficit - Psychiatric Psychiatric exam: Present: normal mood - Skin Skin exam: Present: warm, intact, normal color ED Course Vital Signs 05/22/19 05/22/19 05/22/19 13:29 13:30 13:39 Temperature 98.3 F Pulse Rate 79 75 Respiratory 12 20 12 Rate Blood Pressure 115/57 113/53 Blood Pressure 115/57 [Left] O2 Sat by Pulse 97 94 Oximetry 05/22/19 15:01 Temperature Pulse Rate 80 Respiratory 9 L Rate Blood Pressure 122/62 Blood Pressure [Left] O2 Sat by Pulse 99 Oximetry ED Medical Decision Making - Lab Data Result diagrams: 05/22/19 14:10 05/22/19 14:10 - Radiology Data Radiology results: report reviewed - Medical Decision Making Patient is 79 years old female with history of end-stage renal disease on hemodialysis. Patient brought to the emergency room via EMS for evaluation after a fall. Patient is a son who witnessed the fall. He stated his mom was going to the bathroom when she lost her balance and fell. She is complaining of neck pain and headache. Patient had neck surgery last week at [facility]. Patient denied any other injuries. Patient had dialysis yesterday. Patient remained stable with a GCS of 15. CT brain showed a subdural hematoma. I discussed the patient with , she accepted the patient to be transferred to [facility] ER. Patient transferred in a stable condition. Critical Care Time: Yes Critical care time in (mins) excluding proc time.: 30 Critical care attestation.: If time is entered above; I have spent that time in minutes in the direct care of this critically ill patient, excluding procedure time. ED Disposition Clinical Impression: Acute subdural hematoma, Fall Disposition: [id number] ANOTHER TYPE HLTHCARE Is pt being admited?: No Condition: Stable
[2019-05-22 14:53] LABS: Basophils % (Auto) 0.7 % (0.0-1.8); Eosinophils % (Auto) 0.6 % (0.0-4.3); Hematocrit 32.6 % (30.3-42.9); Hemoglobin 10.6 gm/dl (10.1-14.3); Lymphocytes # (Auto) 0.4 K/mm3 (1.2-5.4); Lymphocytes % (Auto) 6.3 % (13.4-35.0); Mean Corpuscular HGB Conc 32 % (30-34); Mean Corpuscular Volume 83 fl (79-97); Monocytes # (Auto) 0.7 K/mm3 (0.0-0.8); Monocytes % (Auto) 9.7 % (0.0-7.3); Platelet Count 198 K/mm3 (140-440); Red Blood Count 3.92 M/mm3 (3.65-5.03)
[2019-05-22 14:58] LABS: Calcium 7.9 mg/dL (8.4-10.2); Red Cell Distribution Width 20.8 % (13.2-15.2)
--- NOTE | 2019-05-22 15:30 | Cat Scan Report ---
CT HEAD WITHOUT CONTRAST INDICATION / CLINICAL INFORMATION: head injury/ fall. TECHNIQUE: All CT scans at this location are performed using CT dose reduction for ALARA by means of automated e xposure control. COMPARISON: Head CT 05/03/2019 FINDINGS: HEMORRHAGE: Since recent previous study 05/03/2019 there is been interval development of a right front oparietal subdural hematoma which measures about 12 mm in greatest thickness. There is compression of the adjacent brain parenchyma. Again demonstrated is a right frontal lobe parenchymal hematoma which was first demonstrated on 05/03/2019. This abnormality is decreasing in density which is an expected involutional change. The lesion is not significantly changed in size however. EXTRA-AXIAL SPACES: Cortical sulci and sylvian fissures are enlarged reflecting a degree of parenchym al volume loss which is within normal limits for the patient's age of 79 years. Basilar cisterns have an unremarkable appearance. VENTRICULAR SYSTEM: The third and lateral ventricles are enlarged reflecting resonance of age related parenchymal volume loss. CEREBRAL PARENCHYMA: Periventricular and deep white matter lucency is observed. This is probably seco ndary to microvascular ischemic change. Patient's right frontal lobe parenchymal hematoma is describe d under "hemorrhage" above. Postoperative changes are noted. Patient is status post frontoparietal cr aniotomy. Radiopaque surgical material, possibly clips, are present in the interhemispheric fissure a long the anterior margin of the corpus callosum. Encephalomalacia is present in both frontal lobes. T hese findings are stable. MIDLINE SHIFT OR HERNIATION: There is no indication of midline shift. CEREBELLUM / BRAINSTEM: Brainstem and cerebellum have an unremarkable appearance. INTRACRANIAL VESSELS:Calcified atherosclerotic plaque is present along the course of the cavernous se gments of both internal carotid arteries. Similar findings are seen at the distal vertebral arteries. ORBITS: visualized portions of the orbits have an unremarkable appearance. SOFT TISSUES of HEAD: No significant abnormality. CALVARIUM: Evaluation of bone windows reveals operative changes status post craniotomy. PARANASAL SINUSES / MASTOID AIR CELLS: Paranasal sinuses are free from inflammatory mucosal disease. Mastoid air cells are normally pneumatized. IMPRESSION: 1. New right frontoparietal subdural hematoma measuring about 12 mm in greatest thickness. 2. Evolving right frontal lobe parenchymal hematoma first demonstrated on 05/03/2019. 3. Postoperative changes as described. Critical result: Time of discovery: 1415 Central standard time Notification: I called report to of the [facility] ED at about 1420 Central standard time. Signer Name: Wander Beckett MD Signed: 05/22/2019 3:26 PM Workstation Name: [id number]
--- NOTE | 2019-05-22 15:40 | Cat Scan Report ---
CT CERVICAL SPINE WITHOUT CONTRAST INDICATION / CLINICAL INFORMATION: NECK INJURY/ fall. TECHNIQUE: Axial CT images were obtained through the cervical spine. Sagittal and coronal reformatted images wer e produced. All CT scans at this location are performed using CT dose reduction for ALARA by means of automated exposure control. COMPARISON: None available. FINDINGS: OVERVIEW: Patient is status post treatment for a type II odontoid fracture. Compression screw is pres ent in good position. There are findings indicating nonunion across this fracture site. No recent fra ctures are observed. ALIGNMENT: Loss of the normal cervical lordosis is noted. No additional abnormalities of alignment ar e identified. VERTEBRAE: There is erosion of the superior anterior aspect of the C3 endplate likely secondary to th e adjacent C2 compression screw. Anterior osteophyte formation and mild posterior osteophyte are seen in the cervical region is described level by level above. DISC SPACES: Loss of disc height is noted at the C5-6, C6-7 and C7-T1 levels. INDIVIDUAL LEVEL ANALYSIS: C2-3: There is erosion of the anterior aspect of the superior endplate of C3 likely secondary to the adjacent head of the C2 compression screw. No additional abnormality. C3-4: No abnormality. C4-5: Mild loss of disc height is noted. Central disc protrusion is identified. Central spinal canal remains adequate in size. There is no indication of foraminal stenosis. C5-6: Loss of disc height is evident. Anterior and mild posterior osteophyte formation is observed. R ight worse than left uncovertebral arthritic changes are observed. Central spinal canal and neurofora aman are adequately maintained. C6-7: Loss of disc height is noted. Anterior osteophyte formation is demonstrated. Mild uncovertebral arthritic changes are observed. Central spinal canal and neuroforamina are adequately maintained. C7-T1: Mild loss of disc height is noted. Central spinal canal and neuroforamina are adequately maint ained. T1-T2: Posterior osteophyte is noted. No additional abnormality. CRANIOCERVICAL JUNCTION:No significant abnormality. SPINAL CANAL: No indication of central canal stenosis. PARASPINAL SOFT TISSUES: No significant abnormality. ADDITIONAL FINDINGS: Bilateral first rib fractures are noted. There is evidence of ongoing but incomp letely healing. LUNG APICES: There is no indication of lung nodule or infiltrate. Left larger than right pleural effu sions are identified. Correlation with chest radiograph is advised. IMPRESSION: 1. No evidence of recent fracture or traumatic subluxation. 2. 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 3. Bilateral first rib fractures with evidence of ongoing but incomplete healing. 4. Left larger than right pleural effusions. Signer Name: Wander Beckett MD Signed: 05/22/2019 3:35 PM Workstation Name: [id number]
[2019-05-22 18:04] VITALS: BP 128/67
== END 2019-05-22 18:04 | disposition other institution (70) ==
LOC: ED 13:14
DX: S06.5X0A Traumatic subdural hemorrhage without loss of consciousness, initial encounter (principal); I13.2 Hypertensive heart and chronic kidney disease with heart failure and with stage 5 chronic kidney disease, or end stage renal disease; I50.9 Heart failure, unspecified; E11.22 Type 2 diabetes mellitus with diabetic chronic kidney disease; N18.6 End stage renal disease; Z99.2 Dependence on renal dialysis; Z79.82 Long term (current) use of aspirin; Z79.899 Other long term (current) drug therapy; Z88.5 Allergy status to narcotic agent; Z88.8 Allergy status to other drugs, medicaments and biological substances; Z86.718 Personal history of other venous thrombosis and embolism; Z98.890 Other specified postprocedural states; W01.198A Fall on same level from slipping, tripping and stumbling with subsequent striking against other object, initial encounter; Y93.89 Activity, other specified; Y92.091 Bathroom in other non-institutional residence as the place of occurrence of the external cause; Y99.8 Other external cause status
CPT/HCPCS: 36415; 70450; 72125; 80048; 85025; 99291

== ENCOUNTER 2019-08-04 06:19 | Inpatient (IN) | payer MEDICARE ==
[2019-08-04] MEDS ORDERED: SODIUM CHLORIDE 0.9% 1000 ML IV SOLN IV ONE (07:13)
--- NOTE | 2019-08-04 07:20 | Emergency Department Report ---
ED General Adult HPI - General Chief complaint: Abdominal Pain Stated complaint: CHEST PAIN Time Seen by Provider: 08/04/19 06:58 Source: family, EMS ( EMS documentation not available at time of chart dictation ), RN notes reviewed, old records reviewed Mode of arrival: Stretcher Limitations: Physical Limitation - History of Present Illness Initial comments: Nephrology: Dr Cavazos Past medical history: End-stage renal disease, on hemodialysis, Thursday, , Thursday, diabetes, hypertension, stroke, peripheral vascular disease, status post CABG, pulmonary hypertension, congestive heart failure, malnutrition, seizure disorder, peripheral artery disease, history of left foot amputation, admitted to this hospital March 2019 for critical limb ischemia of the right foot, had revascularization procedure performed by vascular surgery The patient is brought to the hospital today by emergency medical services. The patient is a poor historian. She complains of chest pain and abdominal pain. She is not able to describe the qualitative nature of the pain. She indicates the pain increases with palpation and range of motion. She indicates it decreases with rest. The patient is a poor historian. Her son is at the bedside. her last known well time and normal time are not known. -: unknown Location: chest, abdomen - Related Data Home Medications Medication Instructions Recorded Confirmed Last Taken Ferrous Sulfate [Iron 325 MG] 325 mg PO DAILY 01/04/19 04/06/19 01/03/19 Previous Rx's Medication Instructions Recorded Last Taken Type Aspirin EC [Halfprin EC] 81 mg PO QDAY #30 tablet. 01/07/19 Unknown Rx Clopidogrel [Plavix] 75 mg PO QDAY #30 tablet 01/07/19 Unknown Rx Metoprolol [Lopressor TAB] 50 mg PO BID #60 tablet 01/07/19 Unknown Rx Famotidine [Pepcid] 20 mg PO DAILY tablet 01/31/19 Unknown Rx Lisinopril [Zestril TAB] 2.5 mg PO QDAY tablet 01/31/19 Unknown Rx Lispro Insulin [HumaLOG] 0 unit SUB-Q ACHS units 01/31/19 Unknown Rx Min Oil/Petrolatum [Artificial 1 applic OU Q4HR PRN tube 01/31/19 Unknown Rx Tears Ophth Oint] guaiFENesin DM [Guaifenesin Dm 10 ml PO Q4H PRN oral.liqd 01/31/19 Unknown Rx Syrup] Pentoxifylline [TRENtal] 200 mg PO DAILY #30 tablet 04/08/19 Unknown Rx Pravastatin [Pravachol] 20 mg PO QHS #30 tablet 04/08/19 Unknown Rx Allergies Allergy/AdvReac Type Severity Reaction Status Date / Time phenytoin sodium Allergy Anaphylaxis Verified 05/08/16 07:07 [From Dilantin] phenytoin sodium extended Allergy Anaphylaxis Verified 05/08/16 07:07 [From Dilantin] ED Review of Systems ROS: Stated complaint: CHEST PAIN Other details as noted in HPI Comment: Unobtainable due to pts medical conditions ED Past Medical Hx - Past Medical History Hx Hypertension: Yes Hx CVA: Yes Hx Heart Attack/AMI: No Hx Congestive Heart Failure: Yes Hx Diabetes: Yes Hx Deep Vein Thrombosis: Yes Hx Pulmonary Embolism: No Hx Liver Disease: No Hx Renal Disease: Yes (ESRD (TTS)) Hx Sickle Cell Disease: No Hx Arthritis: No Hx Seizures: Yes Hx Kidney Stones: Yes Hx Asthma: No Hx COPD: No Hx Tuberculosis: No Hx Dementia: No Hx HIV: No Additional medical history: poor circulation left leg, Pulmonary HTN. vitamin d defficency - Surgical History Past Surgical History?: Yes Hx Coronary Stent: No Hx Open Heart Surgery: No Hx Pacemaker: No Hx Internal Defibrillator: No Hx Cholecystectomy: No Hx Appendectomy: No Hx Breast Surgery: No Additional Surgical History: L foot amputation of toes; AV Fistula Upper R arm, PAD with lower extremity bypass - Social History Smoking Status: Unknown if ever smoked Substance Use Type: None - Medications Home Medications: Home Medications Medication Instructions Recorded Confirmed Last Taken Type Ferrous Sulfate [Iron 325 MG] 325 mg PO DAILY 01/04/19 04/06/19 01/03/19 History Aspirin EC [Halfprin EC] 81 mg PO QDAY #30 tablet. 01/07/19 04/06/19 Unknown Rx Clopidogrel [Plavix] 75 mg PO QDAY #30 tablet 01/07/19 04/06/19 Unknown Rx Metoprolol [Lopressor TAB] 50 mg PO BID #60 tablet 01/07/19 04/06/19 Unknown Rx Famotidine [Pepcid] 20 mg PO DAILY tablet 01/31/19 04/06/19 Unknown Rx Lisinopril [Zestril TAB] 2.5 mg PO QDAY tablet 01/31/19 04/06/19 Unknown Rx Lispro Insulin [HumaLOG] 0 unit SUB-Q ACHS units 01/31/19 04/06/19 Unknown Rx Min Oil/Petrolatum [Artificial 1 applic OU Q4HR PRN tube 01/31/19 04/06/19 Unknown Rx Tears Ophth Oint] guaiFENesin DM [Guaifenesin Dm 10 ml PO Q4H PRN oral.liqd 01/31/19 04/06/19 Unknown Rx Syrup] Pentoxifylline [TRENtal] 200 mg PO DAILY #30 tablet 04/08/19 Unknown Rx Pravastatin [Pravachol] 20 mg PO QHS #30 tablet 04/08/19 Unknown Rx ED Physical Exam - General Limitations: Physical Limitation General appearance: alert, anxious, in distress - Head Head exam: Present: atraumatic, normocephalic - Eye Eye exam: Present: normal appearance - ENT ENT exam: Present: normal exam, normal orophraynx, mucous membranes moist, normal external ear exam - Neck Neck exam: Present: normal inspection, full ROM. Absent: tenderness, meningismus - Respiratory Respiratory exam: Present: chest wall tenderness, decreased breath sounds - Cardiovascular Cardiovascular Exam: Present: regular rate, normal rhythm, normal heart sounds. Absent: bradycardia, tachycardia, irregular rhythm, systolic murmur, diastolic murmur, rubs, gallop - GI/Abdominal GI/Abdominal exam: Present: soft, tenderness. Absent: distended, guarding, rebound, rigid, pulsatile mass - Extremities Exam Extremities exam: Present: pedal edema, other (there is a right upper extremity fistula, with no redness, pus or streaking. Femoral pulses intact bilaterally. Chaperoned by nurse Wen Ramirez). Absent: normal inspection (left foot shows evidence of distant transmetatarsal amputations. Right foot with chronic appearing ulcers and skin lesions. Muscular compartments are soft. There is no long bony tenderness. The pelvis is stable.), calf tenderness - Back Exam Back exam: Present: normal inspection. Absent: tenderness, paraspinal tenderness - Neurological Exam Neurological exam: Present: other (there is no facial droop. The patient is able to name her legal process specialist. Moving 4 extremities. Sensation is intact to light touch in 4 extremities. Detailed neurologic examination is not possible secondary to a QT of patient's condition.) - Psychiatric Psychiatric exam: Present: anxious - Skin Skin exam: Present: warm ED Course Vital Signs 08/04/19 08/04/19 08/04/19 06:39 09:06 10:15 Temperature 91.7 F L Pulse Rate 72 71 71 Respiratory 20 16 16 Rate Blood Pressure 93/51 81/41 79/39 [Left] O2 Sat by Pulse 96 97 95 Oximetry 08/04/19 08/04/19 10:31 11:49 Temperature Pulse Rate 61 81 Respiratory 14 16 Rate Blood Pressure 109/54 102/46 [Left] O2 Sat by Pulse 94 94 Oximetry - Reevaluation(s) Reevaluation #1: 08/04/19 07:59 Differential diagnosis, including but not limited to: Bacteremia, viremia, pneumonia, urinary tract infection, pleural effusion, intra-abdominal infection Assessment and plan: 79-year-old female with multiple medical comorbidities, with a complaint of poorly characterized chest pain and abdominal pain. She is hypothermic with a core temperature of 91, and is found to be hypotensive. She is saturating well on room air. Code sepsis called overhead. Appropriate IV fluid bolus ordered, antibiotics ordered, pain medicine ordered, urinalysis, noncontrast CT scan of the abdomen pelvis ordered. Requested nephrology consultation. We are awaiting callback. Discussed this with her son who is at the bedside. Prognosis is poor. Plan to admit once initial diagnostics have resulted. Blood pressure somewhat improved with fluids at this time. Reevaluation #2: 08/04/19 10:11 Laboratory studies reviewed and appreciated. Elevated troponin is chronic, and likely a type II troponin leak. In spite of aggressive and appropriate medical therapy, patient clinically deteriorated. Required initiation of norepinephrine therapy, and sterile left-sided intrajugular central line, using ultrasound guidance. Hospital physician, Dr. Saleh to admit Her private legal process specialist was updated. CT scan abdomen pelvis interpretation is reviewed and appreciated - Consultations Consultation #1: 08/04/19 08:24 Discussed with nephrology, Dr. Hugo, who agrees to follow in consultation. - Central Line Placement Left IJ Consent Obtained: emergent situation Patient Placed on Monitor/Pulse Ox: Yes MD Prep: mask, gown, gloves Central Line Prep: Chlorhexidine scrub Local Anesthesia Used: Lidocaine 2% Amount of Anesthesia Used (mls): 8 Ultrasound Used for Placement: Yes Central Line Lumen Inserted: triple Bloods Obtained for Lab: No Central Line Position: good blood return, all ports aspirated, flus, sutured in place with 2-0 Dressing Applied: Tegaderm Post Procedure X-Ray: tip of catheter in good p Patient Tolerated Procedure: well Complications: other (oozing at insertion site. ddavp ordered, direct digital pressure appliedd) ED Medical Decision Making - Lab Data Result diagrams: 08/04/19 07:53 08/04/19 07:53 Vital Signs 08/04/19 06:39 Temperature 91.7 F L Pulse Rate 72 Respiratory 20 Rate Blood Pressure 93/51 [Left] O2 Sat by Pulse 96 Oximetry - EKG Data -: EKG Interpreted by Dc EKG shows normal: sinus rhythm Rate: normal - EKG Data 08/04/19 07:59 The EKG shows a sinus rhythm, there is a normal axis, there is low voltage, there is motion artifact, T-wave abnormalities in the lateral leads, MA interval within normal limits, QTC within normal limits, the EKG is abnormal, it is not consistent with ST elevation myocardial infarction, it appears to be grossly unchanged from prior EKG from April 2019. Not a STEMI - Radiology Data Radiology results: pending, report reviewed, image reviewed Print Report Referring Physician: KEITH YATES Patient Name: JEIMY GALEANO Date of : 1940 Sex: Female Report Date: 2019-08-04 Report Status: Finalized Findings [facility] [address] [place] [address] XRay Report Signed Patient: JEIMY GALEANO MR#: [id number] : 1940 Acct:[id number] Age/Sex: 79 / F ADM Date: 08/04/19 Loc: ED Attending Dr: Ordering Physician: KEITH YATES MD Date of Service: 08/04/19 Procedure(s): XR chest 1V ap Accession Number(s): [id number] cc: KEITH YATES MD Fluoro Time In Minutes: CHEST 1 VIEW 08/04/2019 7:20 AM INDICATION / CLIN ICAL INFORMATION: Chest pain. Sepsis. COMPARISON: One view of the chest from 05/03/2019. FINDINGS: SUPPORT DEVICES: None. HEART / MEDIASTINUM: Stable. LUNGS / PLEURA: There is a moderate right pleural effusion with associated atelectasis/airspace disease. A small to moderate left pleural effusion is also seen with associated atelectasis/airspace disease. No pneumothorax. ADDITIONAL FINDINGS: A right brachiocephalic vein stent is unchanged. A stent is also seen along the right arm. IMPRESSION: Bilateral pleural effusions, right greater than left, with associated atelectasis/airspace disease. Signer Name: Anish Marcus MD Signed: 08/04/2019 7:38 AM Workstation Name: [id number] Transcribed By: QUEENIE Dictated By: Anish Marcus MD Electronically Authenticated By: Anish Marcus MD Signed Date/Time: 08/04/19737 DD/ 5 TD/TT: Print Report Referring Physician: KEITH YATES Patient Name: JEIMY GALEANO Date of : 1940 Sex: Female Report Date: 2019-08-04 Report Status: Finalized Findings [facility] [address] [place] [address] XRay Report Signed Patient: JEIMY GALEANO MR#: [id number] : 1940 Acct:[id number] Age/Sex: 79 / F ADM Date: 08/04/19 Loc: ED Attending Dr: Ordering Physician: KEITH YATES MD Date of Service: 08/04/19 Procedure(s): XR chest 1V ap Accession Number(s): [id number] cc: KEITH YATES MD Fluoro Time In Minutes: CHEST 1 VIEW INDICATION: s/p central line placement. COMPARISON: Earlier the same day. FINDINGS: Support devices: New left IJ central venous catheter has its tip over the upper left chest. No pneumothorax. Heart: Within normal limits. Lungs/Pleura: Unchanged. Additional findings: None. IMPRESSION: Tip of left IJ central venous catheter overlies the left chest superiorly. This presumably is in the proximal left brachiocephalic vein assuming venous blood flow. Signer Name: Pepe Portillo MD Signed: 08/04/2019 10:07 AM Workstation Name: [id number] Transcribed By: ES Dictated By: Pepe Portillo MD Electronically Authenticated By: Pepe Portillo MD Signed Date/Time: 08/04/19 1007 Critical Care Time: Yes Critical care time in (mins) excluding proc time.: 45 Critical care attestation.: If time is entered above; I have spent that time in minutes in the direct care of this critically ill patient, excluding procedure time. ED Disposition Clinical Impression: ESRD (end stage renal disease) on dialysis, Acute chest pain, SIRS (systemic i nflammatory response syndrome), Hypothermia, Acute abdominal pain Disposition: OP ADMIT IP TO THIS HOSP Is pt being admited?: Yes Does the pt Need Aspirin: Yes Condition: Critical
--- NOTE | 2019-08-04 07:42 | XRay Report ---
CHEST 1 VIEW 08/04/2019 7:20 AM INDICATION / CLINICAL INFORMATION: Chest pain. Sepsis. COMPARISON: One view of the chest from 05/03/2019. FINDINGS: SUPPORT DEVICES: None. HEART / MEDIASTINUM: Stable. LUNGS / PLEURA: There is a moderate right pleural effusion with associated atelectasis/airspace disea se. A small to moderate left pleural effusion is also seen with associated atelectasis/airspace disea se. No pneumothorax. ADDITIONAL FINDINGS: A right brachiocephalic vein stent is unchanged. A stent is also seen along the right arm. IMPRESSION: Bilateral pleural effusions, right greater than left, with associated atelectasis/airspace disease. Signer Name: Anish Marcus MD Signed: 08/04/2019 7:38 AM Workstation Name: [id number]
[2019-08-04] MEDS ORDERED: metroNIDAZOLE/NS 500 MG/100 ML 500 MG/100 ML BAG IV SCH (08:00)
[2019-08-04] MEDS ORDERED: CEFEPIME/NS 2 GM/100 ML 2 GM/100 ML BAG IV SCH ×2 (08:00→11:30)
[2019-08-04] MEDS ORDERED: ACETAMINOPHEN 325 MG/10.15 ML ORAL LIQD UNIT DOSE PO ONE (08:01)
[2019-08-04 08:20] LABS: Hematocrit 41.8 % (30.3-42.9); Hemoglobin 13.6 gm/dl (10.1-14.3); Mean Corpuscular HGB Conc 33 % (30-34); Mean Corpuscular Volume 83 fl (79-97); Red Blood Count 5.02 M/mm3 (3.65-5.03)
[2019-08-04 08:31] LABS: INR 2.2 (0.87-1.13)
[2019-08-04 08:32] LABS: Partial Thromboplastin Time 47.9 Sec. (24.2-36.6)
[2019-08-04 08:33] LABS: Albumin 3.1 g/dL (3.9-5); Calcium 7.6 mg/dL (8.4-10.2)
[2019-08-04 08:51] LABS: Chol/HDL Ratio 1.83 %
[2019-08-04] MEDS ORDERED: LIDOCAINE (2%) 20 MG/1 ML VIAL 20 ML MDV INFILTRATI ONE ×2 (08:58→11:49)
--- NOTE | 2019-08-04 09:08 | Cat Scan Report ---
CT ABDOMEN AND PELVIS WITHOUT CONTRAST HISTORY: abd pain sirs weak hypotensive. COMPARISON: None. TECHNIQUE: Helical CT images of the abdomen and pelvis were obtained without administration of intrav enous contrast. Sagittal and coronal reformatted images were reviewed. All CT scans at this location are performed using CT dose reduction for ALARA by means of automated exposure control. FINDINGS: Abdomen/pelvis: There is severe diffuse subcutaneous edema consistent with anasarca. Small ascites i s also noted. The liver, biliary system, spleen and adrenal glands are unremarkable on noncontrast CT . The pancreas is severely atrophic with no evidence of mass or inflammation. There are numerous bila teral renal cysts ranging from 1-5 cm in diameter. No obstructive uropathy or obvious nephrolithiasis . The uterus and adnexa are unremarkable. The bladder is empty. No evidence for bowel obstruction or focal inflammation. Diffuse aortic and iliac calcifications without evidence of aneurysm. Lungs/bones: Cardiomegaly and moderate bilateral pleural effusions, right greater than left. There i s compressive atelectasis in the lower lobes but no obvious pneumonia. The bony structures are demine ralized with degenerative change. Healing right posterior 11th and 12th rib fractures are noted. Heal ing right anterolateral 4-7 rib fractures are also noted. IMPRESSION: No acute inflammatory process is identified. CHF and anasarca. Extensive renal cystic disease. No obstructive uropathy. Atherosclerosis. Subacute right rib fractures as described. Signer Name: Raj Sarkar Jr, MD Signed: 08/04/2019 9:03 AM Workstation Name: [id number]
[2019-08-04 10:03] LABS: Anisocytosis 1+; Band Neutrophils # (Manual) 0.8 K/mm3; Basophils % (Manual) 0 % (0.0-1.8); Eosinophils % (Manual) 0 % (0.0-4.3); Hypochromasia Few; Macrocytosis Few; Platelet Estimate Consistent w Auto; Target Cells Rare; Total Cells Counted 100
[2019-08-04 10:04] LABS: Platelet Count 81 K/mm3 (140-440)
[2019-08-04] MEDS: NORepinephrine/NS 4 MG-250 ML 4 MG/250 ML BAG IV SCH ×3 (10:12→18:50)
--- NOTE | 2019-08-04 10:12 | XRay Report ---
CHEST 1 VIEW INDICATION: s/p central line placement. COMPARISON: Earlier the same day. FINDINGS: Support devices: New left IJ central venous catheter has its tip over the upper left chest. No pneumo thorax. Heart: Within normal limits. Lungs/Pleura: Unchanged. Additional findings: None. IMPRESSION: Tip of left IJ central venous catheter overlies the left chest superiorly. This presumabl y is in the proximal left brachiocephalic vein assuming venous blood flow. Signer Name: Pepe Portillo MD Signed: 08/04/2019 10:07 AM Workstation Name: [id number]
[2019-08-04] MEDS ORDERED: ASPIRIN 81 MG TAB CHEW PO ONE (10:13)
[2019-08-04] MEDS ORDERED: DESMOPRESSIN ACETATE 21 MCG in SODIUM CHLORIDE 0.9% 50 ML IV ONE (10:30)
[2019-08-04] MEDS ORDERED: guaiFENesin DM 200/20 MG ORAL LIQD 10 ML PO PRN (11:10)
--- NOTE | 2019-08-04 11:18 | History and Physical Report ---
History of Present Illness Date of examination: 08/04/19 Date of admission: 08/04/19 Chief complaint: Chest pain, abdominal pain and worsening shortness of breath History of present illness: 79-year-old -[place] female patient with significant past medical hist ory of end-stage renal disease on hemodialysis TTS type 2 diabetes mellitus hypertension stroke peripheral vascular disease, coronary artery disease status post CABG pulmonary hypertension, congestive heart failure History of left foot toe amputation in March 2019 for critical limb ischemia status post revascularization procedure was brought to the emergency room With complaints of generalized weakness chest pain abdominal pain Initial evaluation patient was found to be septic with septic shock and lactic acidosis fluid overload as well as possible bilateral pneumonia Patient was started on Levophed started on empiric antibiotics When I evaluated the patient patient was critically ill looking, cachectic minimally communicative, could not elicit proper history from the patient Patient was hypothermic, hypotensive, on pressors. Patient is unable to give proper history, however responds to simple questions complains of pain in the abdomen and chest Unable to quantify nor further explain her symptoms Chest x-ray in the ER showed bilateral pleural effusion with bilateral atelectasis/airspace disease CT abdomen and pelvis no inflammatory process identified congestive heart failure anasarca extensive renal cystic disease without obstructive uropathy subacute right rib fractures Past History Past Medical History: CAD, diabetes, ESRD, heart failure, hypertension, PVD, seizures, other (Pulmonary hypertension) Past Surgical History: CABG, Other (AV fistula, revascularization of ischemic limb, amputation of left foot toes) Social history: lives with family, full code. denies: smoking, alcohol abuse Family history: no significant family history Medications and Allergies Allergies Allergy/AdvReac Type Severity Reaction Status Date / Time phenytoin sodium Allergy Anaphylaxis Verified 05/08/16 07:07 [From Dilantin] phenytoin sodium extended Allergy Anaphylaxis Verified 05/08/16 07:07 [From Dilantin] Home Medications Medication Instructions Recorded Confirmed Last Taken Type Ferrous Sulfate [Iron 325 MG] 325 mg PO DAILY 01/04/19 04/06/19 01/03/19 History Aspirin EC [Halfprin EC] 81 mg PO QDAY #30 tablet. 01/07/19 04/06/19 Unknown Rx Clopidogrel [Plavix] 75 mg PO QDAY #30 tablet 01/07/19 04/06/19 Unknown Rx Metoprolol [Lopressor TAB] 50 mg PO BID #60 tablet 01/07/19 04/06/19 Unknown Rx Famotidine [Pepcid] 20 mg PO DAILY tablet 01/31/19 04/06/19 Unknown Rx Lisinopril [Zestril TAB] 2.5 mg PO QDAY tablet 01/31/19 04/06/19 Unknown Rx Lispro Insulin [HumaLOG] 0 unit SUB-Q ACHS units 01/31/19 04/06/19 Unknown Rx Min Oil/Petrolatum [Artificial 1 applic OU Q4HR PRN tube 01/31/19 04/06/19 Unknown Rx Tears Ophth Oint] guaiFENesin DM [Guaifenesin Dm 10 ml PO Q4H PRN oral.liqd 01/31/19 04/06/19 Unknown Rx Syrup] Pentoxifylline [TRENtal] 200 mg PO DAILY #30 tablet 04/08/19 Unknown Rx Pravastatin [Pravachol] 20 mg PO QHS #30 tablet 04/08/19 Unknown Rx Active Meds: Active Medications Norepinephrine (Levophed Drip 4 Mg/Ns 250 Ml) 4 mg in 250 mls @ 7.5 mls/hr IV TITR LUCIO; Protocol Last Admin: 08/04/19 10:12 Dose: 4 mcg/min, 15 mls/hr Documented by: Vancomycin HCl (Vancomycin/Ns 1 Gm/250 Ml) 1 gm in 250 mls @ 167.007 mls/hr IV DAILY ONE; Protocol Stop: 08/04/19 12:37 Cefepime HCl (Cefepime/Ns 2 Gm/100 Ml) 2 gm in 100 mls @ 200 mls/hr IV Q8HR LUCIO; Protocol Review of Systems ROS unobtainable: due to mental status Exam - Constitutional Vitals: Temp Pulse Resp BP Pulse Ox 91.7 F L 61 14 109/54 94 08/04/19 06:39 08/04/19 10:31 08/04/19 10:31 08/04/19 10:31 08/04/19 10:31 General appearance: Present: severe distress, cachectic, disheveled, other (Minimally communicative) - EENT Eyes: Present: PERRL, EOM intact - Neck Neck: Present: supple, normal ROM - Respiratory Respiratory effort: normal Respiratory: bilateral: diminished, rhonchi, negative: rales, wheezing - Cardiovascular Rhythm: regular Heart Sounds: Present: S1 & S2 - Extremities Extremities: no ischemia, abnormal (Chronic skin changes) Extremity abnormal: other (Amputation of left foot toes) - Abdominal General gastrointestinal: Present: soft, tender (No guarding no rigidity), non- distended, normal bowel sounds - Integumentary Integumentary: Present: clear, warm - Musculoskeletal Musculoskeletal: generalized weakness - Psychiatric Psychiatric: other - Neurologic Neurologic: moves all extremities (Minimally communicative), other (Minimal communication) Results - Labs CBC & Chem 7: 08/04/19 07:53 08/04/19 07:53 Labs: Abnormal lab results 08/04/19 08/04/19 08/04/19 Range/Units 07:53 07:53 07:53 MCH 27 L (28-32) pg RDW 20.0 H (13.2-15.2) % Plt Count 81 L (140-440) K/mm3 Seg Neuts % (Manual) 88.0 H (40.0-70.0) % Lymphocytes % (Manual) 2.0 L (13.4-35.0) % Nucleated RBC % 5.0 H (0.0-0.9) % Seg Neutrophils # Man 9.3 H (1.8-7.7) K/mm3 Lymphocytes # (Manual) 0.2 L (1.2-5.4) K/mm3 PT 24.9 H (12.2-14.9) Sec. INR 2.20 H (0.87-1.13) APTT 47.9 H (24.2-36.6) Sec. Sodium (137-145) mmol/L Chloride (98-107) mmol/L Carbon Dioxide (22-30) mmol/L BUN (7-17) mg/dL Creatinine (0.7-1.2) mg/dL Glucose (65-100) mg/dL Calcium (8.4-10.2) mg/dL Magnesium 2.40 H (1.7-2.3) mg/dL Alkaline Phosphatase (35-129) units/L Total Creatine Kinase 153 H (30-135) units/L Troponin T 0.131 H* (0.00-0.029) ng/mL Albumin (3.9-5) g/dL LDL Cholesterol Direct 38 L (50-130) mg/dL HDL Cholesterol 60 H (40-59) mg/dL 08/04/19 Range/Units 07:53 MCH (28-32) pg RDW (13.2-15.2) % Plt Count (140-440) K/mm3 Seg Neuts % (Manual) (40.0-70.0) % Lymphocytes % (Manual) (13.4-35.0) % Nucleated RBC % (0.0-0.9) % Seg Neutrophils # Man (1.8-7.7) K/mm3 Lymphocytes # (Manual) (1.2-5.4) K/mm3 PT (12.2-14.9) Sec. INR (0.87-1.13) APTT (24.2-36.6) Sec. Sodium 135 L (137-145) mmol/L Chloride 90.5 L (98-107) mmol/L Carbon Dioxide 21 L (22-30) mmol/L BUN 65 H (7-17) mg/dL Creatinine 4.6 H (0.7-1.2) mg/dL Glucose 152 H (65-100) mg/dL Calcium 7.6 L (8.4-10.2) mg/dL Magnesium (1.7-2.3) mg/dL Alkaline Phosphatase 172 H (35-129) units/L Total Creatine Kinase (30-135) units/L Troponin T (0.00-0.029) ng/mL Albumin 3.1 L (3.9-5) g/dL LDL Cholesterol Direct (50-130) mg/dL HDL Cholesterol (40-59) mg/dL Assessment and Plan --Septic shock; Empiric IV antibiotics, gentle hydration with IV fluids Vasopressors Levophed, titrate blood pressures to more than 100 systolic Critical care consult --Sepsis: Lactic acidosis , hypotension , hypothermia possible? pneumonia, emperic antibiotics,supportive care f/u cultures --Lactic acidosis; secondary to sepsis --Pneumonia; empiric antibiotics follow cultures Pulmonary critical following --Bilateral pleural effusion; Right more than left probably secondary to fluid overload Hemodialysis, possible thoracentesis if needed --ESRD on HD TTS Nephrology consulted, HD per schedule --NSTEMI 2 Due to ESRD ,closely monitor Cardiology consult if needed --Acute on Chronic systolic CHF cont heart failure medications, HD per schedule, cardiology evaluation --Non ischemic CMP; hear failure medications --Thrombocytopenia; probably secondary to sepsis Closely monitor platelet counts, transfuse as needed Hematology consult if no improvement --PVD:h/o Lt foot toe amputation --H/O Seizures: Seizure precautions Continue home medications --Type 2 DM Accu-Chek sliding scale coverage ADA diet Long-acting insulin as needed --Moderate malnutrition; nutrition supplements Nutrition consult --DVT prophylaxis; heparin renal dose --Full CODE STATUS Monitor closely and adjust management as needed Family not available will try to contact family to discuss patient's condition Treatment plan, and poor prognosis Patient is critically ill with multiple medical problems Prognosis poor Plan of care reviewed with the patient's nurse Critical care time 55 minutes
[2019-08-04] MEDS ORDERED: VANCOMYCIN/NS 1 GM/250 ML 1 GM/250 ML BAG IV ONE ×2 (11:30→17:00)
[2019-08-04] MEDS ORDERED: ASPIRIN 81 MG TAB CHEW ONE (11:44)
[2019-08-04] MEDS ORDERED: VANCOMYCIN PHARMACY TO DOSE IV SCH (12:00)
[2019-08-04] MEDS: FAMOTIDINE 20 MG TAB PO SCH ×2 (12:10→12:58)
--- NOTE | 2019-08-04 12:25 | Consultation ---
History of Present Illness Consult date: 08/04/19 Requesting physician: KRISTI CURIEL Reason for consult: chest pain, other (Shock; ESRD on Dialysis (T/T/S)) History of present illness: PULMONARY/CCM CONSULT NOTE (Full dictation # [id number]) Please see dictated notes for full details Medications and Allergies Allergies Allergy/AdvReac Type Severity Reaction Status Date / Time phenytoin sodium Allergy Anaphylaxis Verified 05/08/16 07:07 [From Dilantin] phenytoin sodium extended Allergy Anaphylaxis Verified 05/08/16 07:07 [From Dilantin] Home Medications Medication Instructions Recorded Confirmed Last Taken Type Ferrous Sulfate [Iron 325 MG] 325 mg PO DAILY 01/04/19 04/06/19 01/03/19 History Aspirin EC [Halfprin EC] 81 mg PO QDAY #30 tablet. 01/07/19 04/06/19 Unknown Rx Clopidogrel [Plavix] 75 mg PO QDAY #30 tablet 01/07/19 04/06/19 Unknown Rx Metoprolol [Lopressor TAB] 50 mg PO BID #60 tablet 01/07/19 04/06/19 Unknown Rx Famotidine [Pepcid] 20 mg PO DAILY tablet 01/31/19 04/06/19 Unknown Rx Lisinopril [Zestril TAB] 2.5 mg PO QDAY tablet 01/31/19 04/06/19 Unknown Rx Lispro Insulin [HumaLOG] 0 unit SUB-Q ACHS units 01/31/19 04/06/19 Unknown Rx Min Oil/Petrolatum [Artificial 1 applic OU Q4HR PRN tube 01/31/19 04/06/19 Unknown Rx Tears Ophth Oint] guaiFENesin DM [Guaifenesin Dm 10 ml PO Q4H PRN oral.liqd 01/31/19 04/06/19 Unknown Rx Syrup] Pentoxifylline [TRENtal] 200 mg PO DAILY #30 tablet 04/08/19 Unknown Rx Pravastatin [Pravachol] 20 mg PO QHS #30 tablet 04/08/19 Unknown Rx Active Meds: Active Medications Aspirin (Halfprin Ec) 81 mg PO QDAY [facility] Clopidogrel Bisulfate (Plavix) 75 mg PO QDAY [facility] Famotidine (Pepcid) 20 mg PO DAILY [facility] Ferrous Sulfate (Feosol) 325 mg PO DAILY [facility] Guaifenesin (Guaifenesin Dm Syrup) 10 ml PO Q4H PRN PRN Reason: Cough Norepinephrine (Levophed Drip 4 Mg/Ns 250 Ml) 4 mg in 250 mls @ 7.5 mls/hr IV TITR [facility]; Protocol Last Titration: 08/04/19 11:34 Dose: 8 mcg/min, 30 mls/hr Documented by: Vancomycin HCl (Vancomycin/Ns 1 Gm/250 Ml) 1 gm in 250 mls @ 167.007 mls/hr IV DAILY ONE; Protocol Stop: 08/04/19 12:59 Cefepime HCl (Cefepime/Ns 2 Gm/100 Ml) 2 gm in 100 mls @ 200 mls/hr IV Q24HR [facility]; Protocol Last Admin: 08/04/19 11:44 Dose: Not Given Documented by: Lisinopril (Zestril) 2.5 mg PO QDAY [facility] Metoprolol Tartrate (Metoprolol) 50 mg PO BID [facility] Pentoxifylline (Trental) 200 mg PO DAILY [facility] Pravastatin Sodium (Pravachol) 20 mg PO QHS [facility] Physical Examination Vital signs: Vital Signs Temp Pulse Resp BP Pulse Ox 91.7 F L 72 20 93/51 96 08/04/19 06:39 08/04/19 06:39 08/04/19 06:39 08/04/19 06:39 08/04/19 06:39 Results - Laboratory Findings CBC and BMP: 08/04/19 07:53 08/04/19 07:53 PT/INR, D-dimer PT 24.9 Sec. (12.2-14.9) H 08/04/19 07:53 INR 2.20 (0.87-1.13) H 08/04/19 07:53 Abnormal lab findings: Abnormal Labs 08/04/19 08/04/19 08/04/19 07:53 07:53 07:53 MCH 27 L RDW 20.0 H Plt Count 81 L Seg Neuts % (Manual) 88.0 H Lymphocytes % (Manual) 2.0 L Nucleated RBC % 5.0 H Seg Neutrophils # Man 9.3 H Lymphocytes # (Manual) 0.2 L PT 24.9 H INR 2.20 H APTT 47.9 H Sodium Chloride Carbon Dioxide BUN Creatinine Glucose Lactic Acid Calcium Magnesium 2.40 H Alkaline Phosphatase Total Creatine Kinase 153 H Troponin T 0.131 H* Albumin LDL Cholesterol Direct 38 L HDL Cholesterol 60 H 08/04/19 08/04/19 07:53 11:09 MCH RDW Plt Count Seg Neuts % (Manual) Lymphocytes % (Manual) Nucleated RBC % Seg Neutrophils # Man Lymphocytes # (Manual) PT INR APTT Sodium 135 L Chloride 90.5 L Carbon Dioxide 21 L BUN 65 H Creatinine 4.6 H Glucose 152 H Lactic Acid 2.60 H* Calcium 7.6 L Magnesium Alkaline Phosphatase 172 H Total Creatine Kinase Troponin T Albumin 3.1 L LDL Cholesterol Direct HDL Cholesterol
--- NOTE | 2019-08-04 12:45 | Consultation ---
History of Present Illness - Reason for Consult chronic renal failure, end stage renal disease, hyperkalemia - History of Present Illness This is a very pleasant 79-year-old elderly -[place] female, with a known history of end-stage renal disease in the setting of hypertension and diabetes, with significant history of peripheral vascular disease who presented to emergency department secondary to worsening shortness of breath and weakness apparently from her recent rehabilitation stay. In the emergency department she was noted to be significantly hypotensive and hypothermic with chest x-ray c oncerning for possible underlying pneumonia. Sepsis protocol was initiated and she was transferred to the ICU for further management. She has now been started on pressors with norepinephrine running at 8 mcg/kg/m at this time. Blood pressures are currently stable with current pressor support. She is also receiving broad-spectrum antibiotics with vancomycin and Levaquin. Nephrology is being asked to see the patient for chronic hemodialysis needs. She is currently on TTS outpatient hemodialysis schedule. Past History Past Medical History: diabetes, ESRD, heart failure (EF 10%), hypertension, hyperlipidemia, seizures Past Surgical History: CABG, Other (RUE AVF, left foot amputation of toes) Social history: no significant social history Family history: hypertension, other (esrd ) Medications and Allergies Allergies Allergy/AdvReac Type Severity Reaction Status Date / Time phenytoin sodium Allergy Anaphylaxis Verified 05/08/16 07:07 [From Dilantin] phenytoin sodium extended Allergy Anaphylaxis Verified 05/08/16 07:07 [From Dilantin] Home Medications Medication Instructions Recorded Confirmed Last Taken Type Ferrous Sulfate [Iron 325 MG] 325 mg PO DAILY 01/04/19 04/06/19 01/03/19 History Aspirin EC [Halfprin EC] 81 mg PO QDAY #30 tablet. 01/07/19 04/06/19 Unknown Rx Clopidogrel [Plavix] 75 mg PO QDAY #30 tablet 01/07/19 04/06/19 Unknown Rx Metoprolol [Lopressor TAB] 50 mg PO BID #60 tablet 01/07/19 04/06/19 Unknown Rx Famotidine [Pepcid] 20 mg PO DAILY tablet 01/31/19 04/06/19 Unknown Rx Lisinopril [Zestril TAB] 2.5 mg PO QDAY tablet 01/31/19 04/06/19 Unknown Rx Lispro Insulin [HumaLOG] 0 unit SUB-Q ACHS units 01/31/19 04/06/19 Unknown Rx Min Oil/Petrolatum [Artificial 1 applic OU Q4HR PRN tube 01/31/19 04/06/19 Unknown Rx Tears Ophth Oint] guaiFENesin DM [Guaifenesin Dm 10 ml PO Q4H PRN oral.liqd 01/31/19 04/06/19 Unknown Rx Syrup] Pentoxifylline [TRENtal] 200 mg PO DAILY #30 tablet 04/08/19 Unknown Rx Pravastatin [Pravachol] 20 mg PO QHS #30 tablet 04/08/19 Unknown Rx Active Meds: Active Medications Aspirin (Halfprin Ec) 81 mg PO QDAY [facility] Clopidogrel Bisulfate (Plavix) 75 mg PO QDAY [facility] Famotidine (Pepcid) 20 mg PO DAILY [facility] Ferrous Sulfate (Feosol) 325 mg PO DAILY [facility] Guaifenesin (Guaifenesin Dm Syrup) 10 ml PO Q4H PRN PRN Reason: Cough Norepinephrine (Levophed Drip 4 Mg/Ns 250 Ml) 4 mg in 250 mls @ 7.5 mls/hr IV TITR [facility]; Protocol Last Titration: 08/04/19 11:34 Dose: 8 mcg/min, 30 mls/hr Documented by: Vancomycin HCl (Vancomycin/Ns 1 Gm/250 Ml) 1 gm in 250 mls @ 167.007 mls/hr IV DAILY ONE; Protocol Stop: 08/04/19 12:59 Cefepime HCl (Cefepime/Ns 2 Gm/100 Ml) 2 gm in 100 mls @ 200 mls/hr IV Q24HR [facility]; Protocol Last Admin: 08/04/19 11:44 Dose: Not Given Documented by: Lisinopril (Zestril) 2.5 mg PO QDAY [facility] Metoprolol Tartrate (Metoprolol) 50 mg PO BID [facility] Pentoxifylline (Trental) 200 mg PO DAILY [facility] Pravastatin Sodium (Pravachol) 20 mg PO QHS [facility] Review of Systems Constitutional: fatigue, weakness, malaise Respiratory: cough with sputum, shortness of breath Exam - Vital Signs Vital signs: Vital Signs Temp Pulse Resp BP Pulse Ox 91.7 F L 72 20 93/51 96 08/04/19 06:39 08/04/19 06:39 08/04/19 06:39 12/12/19 06:39 08/04/19 06:39 - General Appearance General appearance: chronically ill, frail EENT: ATNC Neck: Present: neck supple Respiratory: Decreased Breath Sounds Heart: regular, S1S2 Gastrointestinal: Present: normal, normoactive bowel sounds Integumentary: warm and dry Neurologic: other (lethargic) Musculoskeletal: Present: deferred Psychiatric: cooperative Results - Lab Results 08/04/19 07:53 08/04/19 07:53 Most recent lab results Calcium 7.6 mg/dL (8.4-10.2) L 08/04/19 07:53 Magnesium 2.40 mg/dL (1.7-2.3) H 08/04/19 07:53 Assessment and Plan - Patient Problems (1) ESRD (end stage renal disease) on dialysis Current Visit: Yes Status: Chronic Plan to address problem: We'll plan for hemodialysis while here on a TTS schedule. Will evaluate for extra isolated E obsessions as appropriate in order to optimize volume status. (2) Sepsis Current Visit: No Status: Acute Qualifiers: Sepsis type: sepsis due to unspecified organism Qualified Code(s): A41.9 - Sepsis, unspecified organism Plan to address problem: Management per primary team/ICU. Please ensure that antibiotics are dose appropriate for her diminished renal function. Pressor requirements and titration per ICU protocol. Blood cultures are pending at this time. (3) Fluid overload Current Visit: Yes Status: Acute Plan to address problem: Chest x-ray and CT scan showing evidence of anasarca and edema with evidence of fluid overload. We will need to gently remove fluid by ultrafiltration during hemodialysis. (4) Hypotension Current Visit: Yes Status: Acute Plan to address problem: Patient to continue on current pressor requirements at this time. Please titrate pressor requirements in order to facilitate easier removal of fluid during hemodialysis. Withholding all hypertensive medications at this time given her hemodynamic instability. Please avoid standing IV fluids in this patient with history of congestive heart failure, ejection fraction 10%, and end-stage renal disease. (5) Anemia in CKD (chronic kidney disease) Current Visit: Yes Status: Chronic Qualifiers: Chronic kidney disease stage: on chronic dialysis Qualified Code(s): N18.6 - End stage renal disease; D63.1 - Anemia in chronic kidney disease; Z99.2 - Dependence on renal dialysis Plan to address problem: HERBERT therapy with hemodialysis. (6) Diabetes mellitus Current Visit: No Status: Chronic Plan to address problem: Diabetes management per primary team.
[2019-08-04] MEDS ORDERED: SODIUM CHLORIDE 0.9% 100 ML IV PRN (12:50)
[2019-08-04] MEDS ORDERED: EPOETIN ALFA 10,000 UNIT/1 ML INJ IV PRN (12:50)
[2019-08-04] MEDS ORDERED: ALBUMIN HUMAN 25% (25 GM/100 ML) INJ IV PRN (12:50)
[2019-08-04] MEDS ORDERED: ALBUTEROL 2.5 MG/3 ML NEBU IH PRN (14:10)
[2019-08-04 14:29] LABS: Hepatitis B Surface Antigen Non-Reactive (Negative); Hepatitis C Virus Antibody Non-Reactive (NonReactive)
[2019-08-04] MEDS ORDERED: PHYTONADIONE 10 MG/1 ML (ADULT ONLY)*INJECTION SUB-Q SCH (15:00)
[2019-08-04] MEDS ORDERED: VANCOMYCIN/NS 1 GM/250 ML 1 GM/250 ML BAG IV SCH (15:00)
[2019-08-04] MEDS ORDERED: VASOPRESSIN 20 UNIT in SODIUM CHLORIDE 0.9% 100 ML IV SCH (17:00)
[2019-08-04] MEDS ORDERED: HYDROmorphone 1 MG/1 ML INJ IM PRN (17:10)
--- NOTE | 2019-08-04 20:20 | XRay Report ---
ABDOMEN SUPINE INDICATION / CLINICAL INFORMATION: Tube placement. COMPARISON: None available. FINDINGS: Tip of the weighted nasogastric tube is projected over the proximal stomach. Signer Name: Donald Ray MD Signed: 08/04/2019 8:16 PM Workstation Name: [id number]
[2019-08-04] MEDS ORDERED: SODIUM BICARB 8.4% 50 MEQ/50 ML SYRINGE IV ONE (20:24)
[2019-08-04] MEDS ORDERED: AMIODARONE 150 MG/3 ML INJ IV ONE (20:24)
[2019-08-04] MEDS ORDERED: DEXTROSE 50% IN WATER (25GM) 50 ML SYRINGE IV ONE (20:24)
[2019-08-04] MEDS ORDERED: EPINEPHrine 30 MG/30 ML INJ IV ONE (20:24)
[2019-08-04] MEDS ORDERED: EPINEPHrine 1:10,000 1 MG/10 ML SYRINGE ONE (20:24)
[2019-08-04] MEDS ORDERED: LIDOCAINE PF 100 MG/5 ML (CARDIAC SYRINGE) IV ONE (20:24)
[2019-08-04 20:52] VITALS: BP 79/46
--- NOTE | 2019-08-04 21:03 | Event Note ---
Date: 08/04/19 I came to bedside after a CODE BLUE was called. The patient appears to be in the ICU secondary to septic shock but she was not intubated at the time. The hospitalist, Dr. Mireles, was at bedside to her on the ACLS protocol. Patient's top dentures were removed. A 3 Mac blade was used to visualize the vocal cords. A 7.5 endotracheal tube was placed through the vocal cords until about 22 cm. The cuff was inflated. There was bilateral breath sounds and condensation within the tube. No obvious complications from this procedure.
--- NOTE | 2019-08-04 21:13 | Event Note ---
Date: 08/04/19 A aleena rothman was called. I presented to bedside. Pt treated IAW ACLS protocol with no return of perfusing rhythm. Pt pronounced at 2055hrs. 65 min critical care time dedicated to patient care. Pt family conference conducted.
--- NOTE | 2019-08-04 21:14 | Death Note ---
Note Date of : 08/04/19 Time of : 20:55 Time Pronounced: 20:55 - Preliminary Cause of (problem) (1) NSTEMI (non-ST elevated myocardial infarction) Preliminary cause of (2) Respiratory failure Preliminary cause of (3) ESRD (end stage renal disease) Preliminary cause of
[2019-08-04] MEDS ORDERED: METOPROLOL TARTRATE 50 MG TAB PO SCH (22:00)
[2019-08-04] MEDS ORDERED: PRAVASTATIN 20 MG TAB PO SCH (22:00)
--- NOTE | 2019-08-04 22:46 | Consultation ---
PULMONARY CRITICAL CARE CONSULTATION NOTE CONSULTING PHYSICIAN: Dr. Saleh. REASON FOR CONSULTATION: 1. Shock, septic versus cardiogenic. 2. Non-ST elevation myocardial infarction. 3. Acute hypoxemic respiratory failure, on supplemental oxygen. 4. History of end-stage renal disease, on dialysis Thursday, and Thursday. 5. Diabetes. CHIEF COMPLAINT AND HISTORY OF PRESENT ILLNESS: The patient is a 79-year-old female with past medical history partially as mentioned above, who came into the Emergency Room by EMS complaining of chest pain, abdominal pain, unable to quantify or qualify the characteristics of the pain. She did indicate that there was increased pain with palpation and range of motion. She denied any nausea, vomiting, or overt aspiration, very, very poor historian. She was evaluated in the Emergency Room, amongst other things, she was found to be hypothermic with a core temperature of 91 degrees Fahrenheit at presentation. She was hypotensive. She had initially been hypoxemic, but was doing better. The patient required vasopressor support despite volume resuscitation. After stabilization in the Emergency Room, we are asked to assist with management. When I stopped by to see her, she was resting in bed. Nursing staff situating her. She still complained of the chest pain, again no nausea or vomiting. She denied any history of falls or trauma. The patient is not a current tobacco user, remote history is unknown. This really is as much of the history of presentation as I have. PAST MEDICAL HISTORY: 1. End-stage renal disease, on dialysis. 2. Diabetes. 3. Hypertension. 4. Cerebrovascular accident. 5. Peripheral vascular disease. 6. Coronary artery disease. 7. Pulmonary hypertension. 8. Congestive heart failure. 9. Seizure disorder. 10. Adult failure to thrive. PAST SURGICAL HISTORY: 1. History of left foot transmetatarsal amputation. 2. History of coronary artery bypass grafting. MEDICATIONS: She was on at the time I stopped by to see her were reviewed. Pertinent medications included the following: Albumin 25% for p.r.n. use during dialysis 25 g, aspirin 81 mg p.o. daily, cefepime 2 g IV daily, Plavix 75 mg p.o. daily, Procrit 10,000 units IV with dialysis p.r.n. Pepcid 20 mg p.o. daily, Feosol 325 mg p.o. daily, guaifenesin DM cough syrup 10 mL p.o. q. 4 hours p.r.n. cough, lisinopril 2.5 mg p.o. daily, metoprolol 50 mg p.o. b.i.d. Levophed drip was going at 8 mcg per minute, Trental 200 mg p.o. daily, Pravachol 20 mg p.o. at bedtime. ALLERGIES: DILANTIN. Nature of this allergy is unknown. DIET: Thin lady, acute weight loss or gain history is unknown. FAMILY AND SOCIAL HISTORY: It seems like the patient came, is not really clear as far as I can tell, she came in from the community. No current alcohol, tobacco, or illicit drug use or abuse. Remote history is unknown. Family history is otherwise unknown. REVIEW OF SYSTEMS: Unobtainable secondary to patient's medical and mental condition. Since she has been here, no gross hematochezia or melena, no gross hematuria, no hematemesis, no hemoptysis, no witnessed seizures. Review of systems otherwise unobtainable or as in the body of history above. PHYSICAL EXAMINATION: VITAL SIGNS: On examination at presentation in the Emergency Room, she was hypotensive. Temperature 91.7 degrees Fahrenheit with a pulse of 72, respiratory rate of 20, blood pressure 93/51 as low as 81/41, O2 sats were 96%, inspired oxygen concentration was not recorded. When I stopped by to see her, O2 sats were 94% that was on 3 liters nasal cannula. GENERAL: She is an elderly looking -[place] female, normocephalic, atraumatic, resting in bed with mildly increased respiratory effort at rest. HEAD, EYES, EARS, NOSE AND THROAT: She was anicteric, no conjunctival erythema. Oropharynx was moist. It appeared like a Mallampati #2 oropharynx. She had a left IJ central line in place with minimal bleeding at the site of the stoma. NECK: Grossly, there were no palpable lymph nodes in the supraclavicular or submandibular lymph node chains. LUNGS: Auscultation of both lung silva revealed diminished bilateral breath sounds, slightly prolonged expiratory phase, diminished right lower lobe air entry. No active wheezing. HEART: Heart sounds 1 and 2 are heard. At the time of my evaluation, they were regular in rate and rhythm. She did have a systolic ejection murmur. ABDOMEN: Soft, flat. Bowel sounds are positive, nontender, no palpable hepatosplenomegaly. EXTREMITIES: Without overt digital clubbing or cyanosis. She had about 1+ pedal edema. She had the left foot transmetatarsal amputation. Pedal pulses were diminished, but limbs were warm and noncyanotic. NEUROLOGIC: Pupils were equal, round, about 3 mm, sluggishly reactive to light. Extraocular muscle movements appeared intact. She appeared to have spontaneous movements to all her extremities. No spasticity. No overt contractures. SKIN: Very poor turgor with stasis dermatitis type rash to the lower extremities in particular. Please see the wound care notes for full description of her skin. PSYCHIATRIC: Mood and affect appeared anxious. LABORATORY DATA: From my review are as follows: Admission white cell count 10,600, hemoglobin 13.6, hematocrit 41.8, platelet count was 81. An 8% band neutrophils reported. INR was 2.20. Serum sodium was 135, potassium 5.0, chloride 91, bicarbonate 21, BUN 65, creatinine 4.6, glucose was 152. Lactic acid level was elevated at 2.6, calcium 7.6. Liver function tests essentially within normal limits. CPK was 153. Troponin was up at 0.131. TSH and free T4 are within normal limits. Two sets of blood cultures, no growth to date. A CT scan of the abdomen and pelvis were done. I have reviewed the radiologist's interpretation, no acute processes noted. She had extensive cystic renal disease. She had a subacute right rib fractures. The chest x-ray as well as the long windows of the CT of the abdomen and pelvis to confirm moderate to large right pleural effusion, small left pleural effusion with compressive atelectasis. No gross pneumothorax that I could see. It is a noncontrast CT. ASSESSMENT: 1. Acute hypoxemic respiratory failure. 2. Bilateral pleural effusions. 3. Severe sepsis with shock. 4. End-stage renal disease, on dialysis. 5. Mild metabolic acidosis. 6. Lactic acidosis. 7. Non-ST elevation myocardial infarction. 8. Adult failure to thrive. 9. History of hypertension. 10. History of peripheral vascular disease. 11. Coronary artery disease. 12. History of pulmonary hypertension. 13. History of congestive heart failure. 14. History of seizure disorder. PLAN: We will continue to treat her like this. It could also be sepsis or severe sepsis with shock due to infection. I will broaden the anti-infective therapy empirically. I will add vancomycin. I will also order procalcitonin level and along with lactic acid level, I will trend them to crutcher helper clinical decision making. She has appropriately been cultured. We will follow cultures. We will deescalate anti-infectives based on results of clinical and microbiologic data. Infectious Disease consultation will be at the behest of the attending physician. She has had gentle volume resuscitation in the Emergency Room I believe and we will go with conservative volume management strategies at this point, considering her renal failure and bilateral pleural effusions. If thoracentesis is going to be ordered to better evaluate the right pleural effusion, especially with a history of subacute rib fractures on the right side, make sure we are not dealing with a hemothorax or other complex effusion. Oxygen will be weaned to keep sats greater than or equal to about 90%. Aspiration precautions will be maintained. Bronchodilators will be ordered on a p.r.n. basis. Bilevel positive airway pressure ventilation therapy will also be offered p.r.n. to be scheduled at bedtime with p.r.n. daytime use if she decompensates further. I note the thrombocytopenia, we will follow her without chemical DVT prophylaxis. She is fully anticoagulated. It is unclear if she was on anticoagulant medication at home, but I do not see that on her list even though she is on Trental and other medications Plavix included for peripheral vascular disease. I will go ahead and just give her some vitamin K empirically to see if we can get that better without having to give FFPs for tentative thoracentesis possibly as early as tomorrow. Nephrology consultation has been placed. I will defer to them in terms of dialysis decisions. She is appropriately on GI prophylaxis. Aspiration precautions will be maintained. Other chronic disease medications will be adjusted by the attending. Flu and pneumonia vaccination will be addressed per protocol. Thank you very much for the consult Dr. Saleh. We will follow along and make further recommendations as picture progresses/becomes clearer. She is critically ill on life-sustaining interventions including the vasopressors. I should mention Levophed will be weaned to keep mean arterial pressures greater than or equal to about 65 mmHg. At this time, I have spent a total of about 35-40 minutes of critical care time without overlap and excluding any procedural time that may be necessary. JOB# [id number] JENNIFER/RU
[2019-08-05] MEDS ORDERED: INSULIN LISPRO 100 UNIT/ML SUB-Q SCH
[2019-08-05] MEDS ORDERED: ASPIRIN EC 81 MG TAB PO SCH (10:00)
[2019-08-05] MEDS ORDERED: FERROUS SULFATE 325 MG TAB PO SCH (10:00)
[2019-08-05] MEDS ORDERED: LISINOPRIL 5 MG TAB PO SCH (10:00)
[2019-08-05] MEDS ORDERED: CLOPIDOGREL 75 MG TAB PO SCH (10:00)
[2019-08-05] MEDS ORDERED: PENTOXIFYLLINE ER 400 MG TAB PO SCH (10:00)
--- NOTE | 2019-08-05 14:30 | Discharge Summary ---
Providers - Providers Date of Admission: 08/04/19 10:56 Date of discharge: 08/05/19 Attending physician: KRISTI CURIEL 08/04/19 07:17 Consult to Physician [CONS] Urgent Comment: Consulting Provider: LY RUDOLPH Physician Instructions: Reason For Exam: esrd known to you 08/04/19 12:19 Consult to Physician [CONS] Routine Comment: Consulting Provider: RENETTA HELMS Physician Instructions: Reason For Exam: critical care Primary care physician: INSPECTOR PENETRANT Hospitalization Condition: Critical Disposition: DC-20 Core Measure Documentation - Palliative Care Palliative Care/ Comfort Measures: Not Applicable Exam - Constitutional Vitals: Temp Pulse Resp BP Pulse Ox 96.1 F L 148 H 35 H 79/46 65 L 08/04/19 17:34 08/04/19 20:40 08/04/19 20:40 08/04/19 20:40 08/04/19 20:40 Plan Follow up with: PRIMARY CARE, [Primary Care Provider] - 3-5 Days
--- NOTE | 2019-08-06 05:55 | Death Summary ---
Summary - Providers Date of service: 08/05/19 Consults: 08/04/19 07:17 Consult to Physician [CONS] Urgent Comment: Consulting Provider: LY RUDOLPH Physician Instructions: Reason For Exam: esrd known to you 08/04/19 12:19 Consult to Physician [CONS] Routine Comment: Consulting Provider: RENETTA HELMS Physician Instructions: Reason For Exam: critical care Attending: KRISTI CURIEL - summary Date of admission: 08/04/19 10:56 Date of : 08/04/19 (20:55 hrs) Reason for admission: Sepsis/septic shock Significant findings: 79-year-old -[place] female patient with significant past medical history of end-stage renal disease on hemodialysis TTS type 2 diabetes mellitus hypertension stroke peripheral vascular disease, coronary artery disease status post CABG pulmonary hypertension, congestive heart failure History of left foot toe amputation in March 2019 for critical limb ischemia status post revascularization procedure was brought to the emergency room,With the complaints of generalized weakness chest pain abdominal pain On Initial evaluation patient was found to be septic with septic shock and lactic acidosis fluid overload as well as possible bilateral pneumonia Patient was started on Levophed started on empiric antibiotics When I evaluated the patient patient was critically ill looking, cachectic minimally communicative, could not elicit proper history from the patient Patient was hypothermic, hypotensive, on pressors. Patient was Critically ill at the time of admission with very poor prognosis.. Admitted to ICU,appropriately managed with Vasopressors,IV antibiotics,and supportive care Evaluated by Pulm.Critical,Nephrology,medications were optimised.hypothermia Requir heating blankets Patient's condition deteriorated. As per records Patient had asystole,code blue was called,received CPR per ACLS protocol,intubated on vent support could not be revived, pronounced by covering hospitalist . I was not present when the patient . Details obtained from the patient's records. Time of : 20:55 hrs on 08/04/2019 Final Diagnosis/Cause of --Acute Hypoxic Respiratory Failure --Cardio pulmonary arrest --Septic shock; Empiric IV antibiotics, gentle hydration with IV fluids Vasopressors Levophed, titrate blood pressures to more than 100 systolic Critical care evaluated, optimised meds ----Lactic acidosis; secondary to sepsis --Sepsis: Lactic acidosis , hypotension , hypothermia possible? pneumonia, emperic antibiotics,supportive care Gram positive bacteremia --Hypothermia: --Pneumonia; empiric antibiotics follow cultures Pulmonary critical following --Bilateral pleural effusion; Right more than left probably secondary to fluid overload Hemodialysis, possible thoracentesis if needed --ESRD on HD TTS Nephrology consulted, HD per schedule --NSTEMI 2 Due to ESRD ,closely monitor Cardiology consult if needed --Acute on Chronic systolic CHF cont heart failure medications, HD per schedule, cardiology evaluation --Non ischemic CMP; hear failure medications --Thrombocytopenia; probably secondary to sepsis Closely monitor platelet counts, transfuse as needed Hematology consult if no improvement --PVD:h/o Lt foot toe amputation --H/O Seizures: Seizure precautions Continue home medications --Type 2 DM Accu-Chek sliding scale coverage ADA diet Long-acting insulin as needed --Moderate malnutrition; nutrition supplements Nutrition consult --DVT prophylaxis; heparin renal dose --Full CODE STATUS Patient . Critical care time 55 minutes Procedures/treatments rendered: Intubation CPR per ACLS Pertinent studies: CT abd and pelvis CXR Abd xray Disposition: - Final diagnosis (1) Acute respiratory failure Note: Final diagnosis: (2) Septic shock Note: Final diagnosis: (3) Sepsis Note: Final diagnosis: (4) Coronary artery disease Note: Final diagnosis: (5) ESRD needing dialysis Note: Final diagnosis: (6) Acute combined systolic and diastolic heart failure Note: Final diagnosis: (7) Hypothermia Note: Final diagnosis: (8) NSTEMI (non-ST elevated myocardial infarction) Note: Final diagnosis: (9) Pulmonary hypertension Note: Final diagnosis: (10) Seizure disorder Note: Final diagnosis:
== END 2019-08-04 20:55 | DRG 871 ==
LOC: ED 06:19 → CC1 10:56
PROVIDERS: ADMIT Internal Medicine; ATTEND Internal Medicine
PROC: 5A12012 Performance of Cardiac Output, Single, Manual (ICD-10-PCS; principal; 2019-08-04)
PROC: 5A1D70Z Performance of Urinary Filtration, Intermittent, Less than 6 Hours Per Day (ICD-10-PCS; 2019-08-04)
PROC: 0BH17EZ Insertion of Endotracheal Airway into Trachea, Via Natural or Artificial Opening (ICD-10-PCS; 2019-08-04)
PROC: 05HN33Z Insertion of Infusion Device into Left Internal Jugular Vein, Percutaneous Approach (ICD-10-PCS; 2019-08-04)
PROC: B544ZZA Ultrasonography of Left Jugular Veins, Guidance (ICD-10-PCS; 2019-08-04)
DX: A41.9 Sepsis, unspecified organism (principal); N18.6 End stage renal disease; R65.21 Severe sepsis with septic shock; I21.A1 Myocardial infarction type 2; J18.9 Pneumonia, unspecified organism; J96.90 Respiratory failure, unspecified, unspecified whether with hypoxia or hypercapnia; I50.23 Acute on chronic systolic (congestive) heart failure; I42.9 Cardiomyopathy, unspecified; E44.0 Moderate protein-calorie malnutrition; I13.2 Hypertensive heart and chronic kidney disease with heart failure and with stage 5 chronic kidney disease, or end stage renal disease; D69.6 Thrombocytopenia, unspecified; D63.1 Anemia in chronic kidney disease; E11.51 Type 2 diabetes mellitus with diabetic peripheral angiopathy without gangrene; E11.22 Type 2 diabetes mellitus with diabetic chronic kidney disease; G40.909 Epilepsy, unspecified, not intractable, without status epilepticus; Z99.2 Dependence on renal dialysis; Z86.73 Personal history of transient ischemic attack (TIA), and cerebral infarction without residual deficits; Z95.1 Presence of aortocoronary bypass graft; Z79.899 Other long term (current) drug therapy; Z89.432 Acquired absence of left foot; Z88.8 Allergy status to other drugs, medicaments and biological substances; Z87.442 Personal history of urinary calculi; Z86.718 Personal history of other venous thrombosis and embolism; Z79.01 Long term (current) use of anticoagulants; Z68.24 Body mass index [BMI] 24.0-24.9, adult; Z82.49 Family history of ischemic heart disease and other diseases of the circulatory system
CPT/HCPCS: 36415; 71045; 74018; 74176; 80053; 80061; 80074; 82140; 82550; 82962; 83735; 84145; 84439; 84443; 84484; 85007; 85025; 85610; 85730; 86403; 87040; 92950; 93005; 93010; 96365; G0378; A9270-GY; J0171; J0282; J0692; J0885; J1170; J1956; J2001; J2597; J3370; J3430; J7030